=== PATIENT | female | born 1940 | race Caucasian/White ===

== ENCOUNTER 2017-10-19 18:27 | Emergency (ER) | payer MEDICARE, SELFPAY ==
[2017-10-19 18:28] VITALS: BP 173/80; PULSE 71; RESP 22; TEMP 37.1; O2SAT 97; BMI 30.9
[2017-10-19 22:27] VITALS: BP 162/90; RESP 18
--- NOTE | 2017-10-19 23:31 | NURSING ---
PT AMBULATED TO BATHROOM WITHOUT NOSE CLAMP ON THEN BACK TO BED. PT LEFT NARES DRIPPING A FEW DROPS OF BLOOD. AWARE. 2X2 GAUZE TAPPED TO NARES.
--- NOTE | 2017-10-20 00:10 | ED.DCSUM_ITS ---
- ER Visit Summary Date of Service: 10/20/17 Chief Complaint: Spontaneous epistaxis History of Present Illness: The patient is a 77 F dense with epistaxis bilaterally that started when she bent over. There is no history of trauma. She is on no anticoagulant or antiplatelet medication. She had a nosebleed several years ago and was seen by Dr. Gianluca De La Garza. She saturated cotton balls with Afrin and place them in both right and left naris per Dr. Begum's recommendation when she was seen a couple of years ago. She does have history of scleroderma. There is also history coronary disease, COPD, hypertension, hypercholesterolemia. He denies bruising easily. She denies any bleeding disorder. She states they do not have a humidifier. Physical Examination: Patient's vital signs remarkable blood elevated blood pressure 162/90. Blood is noted from the right and left naris. There is also blood posteriorly. Patient states she did tilt her head back initially. Pupils equal round reactive. Extra muscles are intact. TMs are normal. Uvula midline. Trachea midline. There is no stridor. Heart is regular without murmur, gallop or rub. Lungs are clear to auscultation. No bruising of the extremities or torso is noted. Test Results: None Emergency Department Course and Treatment: The Afrin saturated cotton balls were removed from the right and left naris. Cotton was saturated with Kel solution and instilled the right and left naris. It was determined that she was bleeding from the left. There is blood noted above the inferior turbinate. There is no abnormality over the right or left septum/Casodex plexus. An anterior posterior Rhino Rocket was placed. There is slight increase in bleeding. She was observed for an hour. She did receive a dose of amoxicillin department. She was given a prescription for amoxicillin and referred to ENT. Treatment Plan: Outpatient follow-up with ENT in 3-5 days and prescription for amoxicillin Disposition: Discharge in stable and improved condition Impression: Epistaxis left side This note was generated with [employer] dictation software. It may contain incorrect words, spelling, and punctuation that were not noted in review of the chart prior to signing ED Disposition - Plan for ED Patient: Disposition: Home or Assisted Living Chief Complaint: Nosebleed Instructions: Nosebleed Prescriptions: Amoxicillin [Amoxil] 500 mg PO Q8H #14 cap Referrals: Steffany Rose MD [Primary Care Provider] - Gianluca De La Garza MD [STAFF PHYSICIAN] - 3-5 Days Additional Instructions: Call Dr. De La Garza's office in the morning to be seen in 3-5 days.
[2017-10-20] MEDS: AMOXICILLIN 500 MG CAPSULE PO (00:18)
[2017-10-20 00:23] VITALS: BP 190/77; PULSE 61; RESP 17; O2SAT 96
--- NOTE | 2017-10-20 00:23 | ED.RN ---
DISCHARGE INSTRUCTIONS GIVEN TO AND REVIEWED WITH PATIENT, PATIENT DENIES QUESTIONS OR CONCERNS AND VOICES UNDERSTANDING OF DISCHARGE INSTRUCTIONS. PT TO PRIVATE VEHICLE VIA WHEELCHAIR.
== END 2017-10-20 00:24 | disposition home or self-care (01) ==
PROVIDERS: Emergency Provider Emergency Medicine; Family Provider Internal Medicine; PCP Internal Medicine
DX: R04.0 Epistaxis (principal); I25.10 Atherosclerotic heart disease of native coronary artery without angina pectoris; J44.9 Chronic obstructive pulmonary disease, unspecified; I10 Essential (primary) hypertension; E78.00 Pure hypercholesterolemia, unspecified; F32.9 Major depressive disorder, single episode, unspecified; Z79.82 Long term (current) use of aspirin; Z79.899 Other long term (current) drug therapy; Z87.891 Personal history of nicotine dependence
CPT/HCPCS: 30901; 30905; 99283

== ENCOUNTER 2017-10-20 02:38 | Emergency (ER) | payer MEDICARE, SELFPAY ==
[2017-10-20 02:39] VITALS: BP 166/90; PULSE 76; RESP 23; O2SAT 98; BMI 35.2
--- NOTE | 2017-10-20 02:42 | EKG12_ITS ---
Test Reason : SOB Blood Pressure : / mmHG Vent. Rate : 062 BPM Atrial Rate : 062 BPM P-R Int : 148 ms QRS Dur : 104 ms QT Int : 452 ms P-R-T Axes : 090 042 093 degrees QTc Int : 458 ms Sinus rhythm with marked sinus arrhythmia Otherwise normal ECG Confirmed by TARIQ PAYNE, LIZA ([id number]), medical editor SHILPI DAS ([id number]) on 10/21/2017 2:15:24 PM Referred By: DAVIDE Confirmed By:LIZA POTTER MD
--- NOTE | 2017-10-20 02:42 | RAD_ITS ---
STUDY: X-RAY CHEST REASON FOR EXAM: Female, 77 years old. Difficulty breathing and swallowing. TECHNIQUE: AP portable chest. COMPARISON: 10/10/2015. FINDINGS: The lungs are clear and expanded. There is no demonstrated pleural abnormality. Scattered subcentimeter nodules compatible with calcified granulomata unchanged. Normal size heart. Normal mediastinum and iliana. Normal visualized pulmonary arteries. Atherosclerotic calcification of the aortic arch. Normal visualized thoracic spine. Normal visualized ribs, clavicles, and shoulders. Sternal wires are present. There is no demonstrated abnormality of the visualized soft tissue structures of the upper abdomen. RAD/Chest 1 View (Portable) IMPRESSION: Stable chest, no acute cardiopulmonary disease. Old granulomatous disease. Electronically Signed: Anant Wise MD at 3:38 EST , Service support ,
[2017-10-20 02:58] VITALS: PULSE 78; RESP 20
[2017-10-20] MEDS: Albuterol 2.5 MG/3 ML VIAL.NEB. INHALATION (02:58)
[2017-10-20] MEDS: Ipratropium/Albuterol Sulfate 3 ML AMPUL.NEB INHALATION (02:58)
--- NOTE | 2017-10-20 03:12 | ED.VISSUMM ---
- ER Visit Summary Date of Service: 10/20/17 Chief Complaint: Shortness of breath, trouble swallowing History of Present Illness: The patient is a 77 F who presents to the emergency department with shortness of breath, facial pain, and difficulty swallowing. The patient was actually just discharged about 3 hours ago. At that time, she had a left-sided epistaxis. Anterior packing was placed. The patient was observed. Her bleeding is resolved. The patient was discharged home. She states since being home, she has had a worsening headache on the left side. She states she also feels like she cannot swallow and is having difficulty breathing. She has never had packing before. She states she feels like the bleeding has stopped, but she was just feeling more short of breath. The patient does have a history of scleroderma and underlying asthma from this. She also has history of coronary vascular disease and hypertension. Physical Examination: Vital signs reviewed General: Well-nourished, well-developed Head: Normocephalic, atraumatic Eyes: Pupils equal and reactive, extraocular muscles intact Nose: Packing placed in left naris. No active bleeding. Posterior pharynx is patent. No bleeding. No angioedema. No trismus or stridor. Neck, supple, no lymphadenopathy Heart: Regular rate and rhythm Respiratory: No distress, scant wheeze Abdomen: Soft, nontender, nondistended, no peritoneal signs Back: Nontender Extremities: Nontender, no edema, no cords Skin: Normal color no rash Neuro: Alert and oriented, no focal or lateralizing deficits Test Results: [] Emergency Department Course and Treatment: The patient had multiple complaints. I do feel the bulk of her symptoms from the packing. She has had bilateral eye watering, posterior sore throat, and facial pain. There is no evidence of current bleeding. The patient did have a scant wheeze. She was treated with nebulized aerosol and her wheezing resolved. She states that she was still having significant pain in her face and trouble swallowing. She was given a dose of Decadron. She was also given IV morphine. I did obtain labs which were unremarkable. She is not anemic. Her labs are baseline. Again, she has had no further bleeding. I do feel that this is all just symptoms from the packing placement along with likely irritation from her earlier bleeding. She was given morphine with some mild improvement. She continued to have a lot of pain and seem very anxious. She was then given Ativan. The patient was able to rest. She was observed for another hour and a half. She has had no further bleeding. I am going to give the patient 1 day of analgesic pain control given her significant facial pain. She already has antibiotics. I did psychotherapist counselor her on reasons to return. The patient will be discharged home. Treatment Plan: [] Disposition: Discharge Impression: 1. Dyspnea secondary to nasal packing This note was generated with [employer] dictation software. It may contain incorrect words, spelling, and punctuation that were not noted in review of the chart prior to signing ED Disposition - Plan for ED Patient: Chief Complaint: Asthma Instructions: ED Reactive Airway Disease Referrals: Steffany Rose MD [Primary Care Provider] -
[2017-10-20 03:13] LABS: Absolute Lymphocyte Count 1.54 X10^3/ul (0.83-4.51); Basophil# 0.04 X10^3/uL; Basophil% 0.4 % (0-1); Eosinophil# 0.06 X10^3/uL; Eosinophils% 0.6 % (0-5); Hematocrit 37.3 % (37-47); Hemoglobin 12.4 g/dl (12.0-15.0); Lymphocyte # 1.54 X10^3/ul (4.0); Lymphocyte % 16.5 % (19-41); Mean Corp Hgb Conc 33.2 g/gl (32-36); Mean Corpuscular Hgb 35.5 pg (27.0-32.0); Mean Corpuscular Volume 106.9 fL (81-99); Mean Platelet Vol. 10.7 fl (6.2-12.0); Monocyte# 0.68 X10^3/uL; Monocyte% 7.3 % (0-10); Neutrophil # 6.98 X10^3/uL (2.7-7.7); Neutrophil % 75.1 % (47-70); POSITIVE COUNT NO; POSITIVE DIFFERENTIAL NO; POSITIVE MORPHOLOGY NO; Platelet Count 215 K/mm3 (150-450); RBC Distribution Width CV 13.6 % (11.6-14.6); RBC Distribution Width SD 52.5 fl (35.1-43.9); Red Blood Count 3.49 M/mm3 (4.2-5.4); White Blood Count 9.3 K/mm3 (4.4-11.0)
[2017-10-20 03:28] LABS: Anion Gap 9 (5-15); BUN 28 mg/dL (7-18); BUN/Creat Ratio 24.1 RATIO (10-20); Calcium,Total 9.4 mg/dL (8.5-10.1); Chloride 103 mmol/L (98-107); Creatinine, Serum 1.16 mg/dL (0.55-1.02); EST Glomerular Filtration Rate 48 mL/min (>60); Est Glom Filt Rate - Afr Amer 58 mL/min (>60); Estimated Creatinine Clearance 35.63 ml/min; Glucose 113 mg/dL (74-106); Potassium 4.8 mmol/L (3.5-5.1); Sodium Level 137 mmol/L (136-145)
[2017-10-20] MEDS: LORazepam 2 MG/ML Syringe 1 MG IV (04:22)
[2017-10-20] MEDS: HYDROcodone Bitartrate/Apap 5/325 Tablet PO (05:44)
[2017-10-20 05:47] VITALS: BP 134/68; PULSE 83; PULSE 90; RESP 20; RESP 21; O2SAT 96
== END 2017-10-20 06:02 | disposition home or self-care (01) ==
LOC: ED 02:53
PROVIDERS: Emergency Provider Emergency Medicine; Family Provider Internal Medicine; PCP Internal Medicine
DX: R06.00 Dyspnea, unspecified (principal); J02.9 Acute pharyngitis, unspecified; J45.909 Unspecified asthma, uncomplicated; I25.10 Atherosclerotic heart disease of native coronary artery without angina pectoris; I10 Essential (primary) hypertension
CPT/HCPCS: 71045; 80048; 85025; 93005; 94640; 96374; 96375; 99285; A4216

== ENCOUNTER → 2021-01-08 16:53 | Outpatient (CLI) | payer MEDICARE, SELFPAY ==
[2019-01-12 14:51] VITALS: BMI 33.3
--- NOTE | 2021-01-08 17:00 | PET_ITS ---
EXAMINATION: FDG PET/CT INDICATIONS: A 80-year-old female with history of pulmonary nodularity. COMPARISON EXAMINATION: CT of the chest report dated 12/18/20 INDEX LESION SIZE SUV INTERPRETATION Left mid anterolateral lung-left upper lobe 20.3-mm (frame 160) 0.5 Quantitative criteria for viable neoplasm are not fulfilled, sequential radiologic investigation recommended NON-INDEX LESION SIZE SUV INTERPRETATION Proximal ascending colon 3.8 (max) Most consistent with physiologic tracer uptake, correlation with CT of the abdomen and pelvis with oral and intravenous contrast may be of benefit TECHNIQUE: Following the intravenous administration of 15.2 mCi of F-18 deoxyglucose via the right brachium, multiplanar image acquisitions of the neck, chest, abdomen and pelvis to level of mid thigh, obtained at one hour post radiopharmaceutical administration contemporaneously interpreted with the current CT of the neck, chest, abdomen and pelvis to level of mid thigh, dated 01/08/[address] of the chest report dated 12/18/20 reveal: SERUM GLUCOSE LEVEL: 88 mg/dl. HEIGHT: 63 inches. WEIGHT: 193 lbs. FINDINGS: 1. Subtle increased FDG concentration is observed in the left mid anterolateral lung-left upper lobe generating a calculated maximal standard uptake value of 0.5 (standardized-corrected). The corresponding density on review of CT of the chest dated 01/08/21 is 20.3-mm (AP). 2. Normal physiologic distribution of the radiopharmaceutical is apparent in the hepatic (3.6) and splenic parenchyma, both renal units, bladder and visualized intestinal tract. Diffuse radiopharmaceutical concentration is noted in all four quadrants of the abdomen and pelvis, most accentuated at the level of the distal ascending colon-hepatic flexure generating a calculated maximal standard uptake value of 3.8. Pertinent CT findings are as follows: CHEST: There is atherosclerotic calcification defined in the thoracic aorta without evidence of dilatation-aneurysm formation. Coronary arterial calcification is observed. There is evidence of median sternotomy. Right and left axillary soft tissue densities with fatty hilus are ametabolic. Calcified mediastinal and thoracic perihilar soft tissue demonstrates no evidence of increased tracer uptake. Additional parenchymal densities defined in the right and left hemithorax are non-glucose avid. Interstitial changes manifest in the bilateral post basilar hemithorax are ametabolic. ABDOMEN AND PELVIS: Calcified granuloma formation is noted within the splenic parenchyma. The gallbladder is not clearly identified. There is atherosclerotic calcification defined in the abdominal aorta without evidence of dilatation-aneurysm formation. Abdominal-pelvic arterial calcification is observed. Cortical cyst formation is evident in the right kidney. Colonic diverticulosis is encountered without evidence of diverticulitis. Right and left inguinal soft tissue densities are non-glucose avid. Calcification is manifest within the lower pelvis-uterus without evidence of facilitated fluorine labeled glucose uptake. SKELETAL: Degenerative changes are noted in the cervical, thoracic and lumbar spine without evidence of increased radiopharmaceutical concentration. Sclerotic change manifest in the axial skeletal structures reveals no evidence of increased tracer uptake. PET/PET/CT Tumor Base -Thigh Init IMPRESSION: 1. NEGATIVE EXAMINATION. There is no definitive quantitative scintigraphic evidence of viable neoplasm. 2. Barely perceptible increased tracer uptake noted in the left mid anterolateral lung-left upper lobe does not fulfill quantitative criteria for malignant transformation. (Ann et al, Annals of Internal Medicine, 138:724, 2003). 3. Metabolic and/or anatomic stability may be ensured in the left mid anterolateral lung-left upper lobe abnormality with repeat FDG PET study and/or CT of the thorax in 3-6 months if clinically indicated. (Xiu, Journal of Nuclear Medicine 45:88, P2004 Clement, Seminars in Thoracic and Cardiovascular Surgery 14:292, 2002). 4. The increase in tracer uptake noted in the proximal ascending colon is most consistent with physiologic radiopharmaceutical distribution. If intraluminal soft tissue mass formation is a diagnostic consideration, correlation with CT of the abdomen and pelvis with oral and intravenous contrast is recommended. (Domusa et al, Journal of Nuclear Medicine, 30:S276, 2003). 5. Sclerotic changes defined throughout the axial skeletal structures without evidence of facilitated labeled GLUCOSE uptake may be further investigated with conventional radionuclide bone scintigraphy if clinically indicated. Electronic Signature Yair Aguilera D.O. Accurate Quantification of SUVs for this report are calculated using the exclusive [employer]? Technology.??Exclusive [place]. Patent [employer]? Technology (U.S. Patent No. [id number] [id number]). Electronically Signed: Yair Aguilera DO at 10:30 EDT Tel , Service support ,
== END ==
PROVIDERS: PCP Internal Medicine
DX: R91.1 Solitary pulmonary nodule (principal)
CPT/HCPCS: 78815; A9552

== ENCOUNTER → 2021-07-11 11:40 | Outpatient (CLI) | payer MEDICARE, SELFPAY ==
[2021-07-11 12:50] LABS: Thyroid Stim Hormone (TSH) 2.08 uIU/mL (0.358-3.74)
== END ==
PROVIDERS: PCP Internal Medicine; Visit Provider Internal Medicine Cardiovascular Disease
DX: R53.83 Other fatigue (principal); F41.9 Anxiety disorder, unspecified; I25.119 Atherosclerotic heart disease of native coronary artery with unspecified angina pectoris; I10 Essential (primary) hypertension; E78.00 Pure hypercholesterolemia, unspecified; Z95.1 Presence of aortocoronary bypass graft
CPT/HCPCS: 36415; 84443

== ENCOUNTER → 2021-07-24 06:45 | Outpatient (CLI) | payer MEDICARE, SELFPAY ==
--- NOTE | 2021-07-24 14:52 | STRESSREP_ITS ---
Stress Test Report Date: 07-24-2021 Procedure: Pharmacologic stress nuclear imaging study Indications: Chest pain; CAD; CABG Consent: Per the patient Procedure: The patient underwent pharmacologic (Regadenoson 0.4mg ) evaluation with a peak heart rate of 86 beats per minute (61%predicted maximal heart rate) and a peak blood pressure of 124/72 mmHg. The baseline ECG demonstrated sinus rhythm; nonspecific ST/T wave abnormality. The peak pharmacologic ECG demonstrated no obvious ECG changes. There were no cardiac dysrhythmias pretest, during pharmacologic infusion, or recovery. There was no complaint of chest discomfort during pharmacologic infusion or recovery. The examination was discontinued secondary to completion of protocol. Impression: 1. Pharmacologic (Regadenoson) evaluation 2. Peak pharmacologic ECG with no obvious ECG changes. 3. There were no cardiac dysrhythmias pretest, during pharmacologic infusion, or recovery. 4. Nuclear images pending Myocardial perfusion imaging study: Technique: The patient was injected with 14.1 millicuries of technetium 99m Cardiolite and subsequently rest SPECT Cardiolite nuclear imaging was obtained in the horizontal long, vertical long, and short axis views. The patient underwent pharmacologic (Regadenoson) evaluation with a peak heart rate of 86 beats per minute (61% percent predicted maximal heart rate) and a peak blood pressure of 124/72 mmHg. The patient was injected with 44.3 millicuries of technetium 99m Cardiolite and subsequently stress SPECT Cardiolite nuclear imaging was obtained in the horizontal long, vertical long, and short axis views. A gated Cardiolite study at peak stress was obtained. Interpretation: Rest and stress SPECT Cardiolite nuclear imaging status post realignment, normalization, and attenuation correction demonstrate the appearance of relative uniform tracer uptake at rest and status post stress there is appearance of diminished myocardial perfusion/tracer uptake in portions of the basal to mid inferior segments. There is diminished end systolic thickening and brightening in the aforementioned areas. The gated Cardiolite study demonstrates diminished myocardial thickening and inward wall motion in the aforementioned areas. The reported LVEF is 53%. Impression: 1. Rest and stress SPECT Cardiolite nuclear imaging demonstrate myocardial perfusion changes concerning for an area of stress-induced myocardial ischemia in portions of the basal to mid inferior segments, however, an element of shifting soft tissue attenuation/artifact cannot be completely excluded. 2. The gated Cardiolite study reports an LVEF of 53%. This note was generated with [employer] software. It may contain incorrect words, spelling, and punctuation that were not noted in checking the note before signing.
== END ==
PROVIDERS: PCP Internal Medicine; Visit Provider Internal Medicine Cardiovascular Disease
DX: I25.119 Atherosclerotic heart disease of native coronary artery with unspecified angina pectoris (principal); I10 Essential (primary) hypertension; E78.00 Pure hypercholesterolemia, unspecified; R53.83 Other fatigue; Z95.1 Presence of aortocoronary bypass graft
CPT/HCPCS: 78452; 93017; A9500; A4216; J2785

== ENCOUNTER → 2021-11-05 07:27 | Day surgery (SDC) | payer MEDICARE, SELFPAY ==
--- NOTE | 2021-10-25 12:45 | RAD_ITS ---
STUDY: X-RAY CHEST REASON FOR EXAM: Female, 81 years old. Preoperative eval TECHNIQUE: Frontal and lateral views of the chest. COMPARISON: None. FINDINGS: The lungs are clear and expanded. There is no demonstrated pleural abnormality. Sternal cerclage wires and vascular clips are present from a prior sternotomy and coronary artery bypass graft procedure (CABG). Normal mediastinum and iliana. Normal visualized pulmonary arteries. Normal visualized aortic arch and descending thoracic aorta. Normal visualized thoracic spine. There is degenerative osteoarthritis of the bilateral shoulders. There is no demonstrated abnormality of the visualized soft tissue structures of the upper abdomen. RAD/Chest PA and Lateral IMPRESSION: Degenerative changes, as described above. No demonstrated acute cardiopulmonary process. Electronically Signed: Kurtis Cartwright MD at 7:28 EST ,
[2021-10-25 13:32] LABS: Absolute Lymphocyte Count 1.52 X10^3/uL (0.83-4.51); Absolute Neutrophil Count 3.5 X10^3/uL (2.0-7.7); Basophil# 0.05 X10^3/uL; Basophil% 0.8 % (0-1); Eosinophil# 0.17 X10^3/uL; Eosinophils% 2.7 % (0-5); Hematocrit 38.2 % (37-47); Hemoglobin 12.3 g/dL (12.0-15.0); Lymphocyte # 1.52 X10^3/ul (0.83-4.51); Lymphocyte % 24.2 % (19-41); Mean Corp Hgb Conc 32.2 g/dL (32-36); Mean Corpuscular Hgb 37.3 pg (27.0-32.0); Mean Corpuscular Volume 115.8 fL (81-99); Mean Platelet Vol. 11.3 fl (6.2-12.0); Monocyte# 1.05 X10^3/uL; Monocyte% 16.7 % (0-10); NRBC Flagged by Analyzer 0 % (0-5); Neutrophil # 3.47 X10^3/uL (2.7-7.7); Neutrophil % 55.4 % (47-70); Platelet Count 175 K/mm3 (150-450); RBC Distribution Width CV 15.1 % (11.6-14.6); RBC Distribution Width SD 64.5 fl (35.1-43.9); White Blood Count 6.3 K/mm3 (4.4-11.0)
[2021-10-25 13:38] LABS: Prothrombin Time (Protime)PT. 12.9 SECONDS (11.7-14.9)
[2021-10-25 13:39] LABS: Partial Thromboplast Time 28.3 Seconds (24.1-36.2)
[2021-10-25 13:52] LABS: Anion Gap 4 (5-15); BUN 24 mg/dL (7-18); Calcium,Total 10.2 mg/dL (8.5-10.1); Chloride 105 mmol/L (98-107); Creatinine, Serum 1.26 mg/dL (0.55-1.02); EST Glomerular Filtration Rate 43 mL/min (>60); Est Glom Filt Rate - Afr Amer 53 mL/min (>60); Glucose 98 mg/dL (74-106); Potassium 3.9 mmol/L (3.5-5.1); Sodium Level 140 mmol/L (136-145)
[2021-11-04 09:34] VITALS: BMI 33.7
--- NOTE | 2021-11-04 19:25 | PCM.HP.BLA ---
History and Physical Date of Admission: 11/05/21 [facility] [address] [place] [address] [phone] OFFICE VISITDate of Service: 10/08/21 MR#:[id number]:[id number]: TALIA BURT JRep #:[id number] Provider: ALYSA Rodriguez RoofAge/Sex: 81/F Location:Oratus:Signed HPI HPI History of Present Illness Surgical H&P: Yes Details: This is an 81-year-old white female who presents today for outpatient cardiovascular consultation for concern of a history of underlying CAD, CABG, superimposed upon hyperlipidemia, hypertension, peripheral vascular disease, history of previous thromboembolic event/pulmonary emboli, TIA, chronic kidney disease, and lung nodules, who follows with [facility] primary care and has been previously followed by [facility] cardiology. It appears her last [facility] cardiology visit was on 04-02-2017. At that time she was being followed for her aforementioned cardiovascular conditions. It appears the recommendation was that she was continuing medical therapy and follow-up. Patient underwent stress test on 07/24/2021 that is considered to be abnormal. On account of memory issues, it was recommend to begin metoprolol and isosorbide therapy and follow response before proceeding with heart catheterization. She was started on isosorbide. There is an unknown allergy to metoprolol and thus was not started on beta-willie therapy. Today, she continues to acknowledge dull, weekly chest discomfort. This is most noted with activity and occasionally occurs at rest. This is located on left side of her chest and last for minutes. She denies palpitations. She denies bilateral lower extremity edema. She acknowledges shortness of breath with activity. She denies shortness of breath at rest, orthopnea, cough, or PND. She acknowledges an increase in fatigue since last office visit. She denies lightheadedness, dizziness, syncope, or near syncope. She acknowledges that lower extremities are painful and cold at times while sitting. Intake Vital Signs 10/08/21 11:45 Height 5 ft 4 in Weight: 197 lb BMI 33.7 BP 132/79 H Blood Pressure Location Lt brachial Position Sitting Respiration 22 H Pulse 72 Pulse Source Monitor Intake Visit Reasons: 3 m [employer]ist[employer] Required: No Accompanied by: Granddaughter Is patient in pain?: No Allergies metoprolol tartrate [From Lopressor] Allergy (Verified 10/08/21 11:51) Unknown shellfish derived Allergy (Verified 10/08/21 11:51) Anaphylaxis Sulfa (Sulfonamide Antibiotics) Allergy (Verified 10/08/21 11:51) Rash Medications albuterol sulfate 1 - 2 puff INHALATION Q4H PRN PRN 10/10/15 [History Confirmed 10/08/21] doxepin 50 mg PO QHS 10/10/15 [History Confirmed 10/08/21] folic acid 2 mg PO DAILY 10/10/15 [History Confirmed 10/08/21] leucovorin calcium 5 mg PO QWEEK 10/10/15 [History Confirmed 10/08/21] simvastatin 20 mg PO QHS 10/10/15 [History Confirmed 10/08/21] allopurinol 100 mg tablet 200 mg PO DAILY tab 01/12/19 [History Confirmed 10/08/21] budesonide-formoterol HFA 160 mcg-4.5 mcg/actuation aerosol inhaler 2 puff INHALATION BID 01/12/19 [History Confirmed 10/08/21] latanoprost 0.005 % eye drops 1 drp OPHTHALMIC QPM 01/12/19 [History Confirmed 10/08/21] nitroglycerin 0.4 mg sublingual tablet 0.4 mg SUBLINGUAL Q5-15M PRN 01/12/19 [History Confirmed 10/08/21] acetaminophen 500 mg tablet 500 mg PO Q8H PRN tab 06/26/21 [History Confirmed 10/08/21] cholecalciferol (vitamin D3) 25 mcg (1,000 unit) tablet 25 mcg PO DAILY 06/26/21 [History Confirmed 10/08/21] clobetasol 0.05 % topical cream 1 applic TOPICAL BID 06/26/21 [History Confirmed 10/08/21] hydrochlorothiazide 12.5 mg tablet 12.5 mg PO DAILY 06/26/21 [History Confirmed 10/08/21] methotrexate sodium 2.5 mg tablet 12.5 mg PO Q7D 06/26/21 [History Confirmed 10/08/21] brimonidine 0.1 % eye drops 2 drp OPHTHALMIC (EYE) DAILY ml 07/11/21 [History Confirmed 10/08/21] lisinopril 20 mg tablet 20 mg PO BID 07/11/21 [History Confirmed 10/08/21] aspirin 81 mg tablet,delayed release 81 mg PO DAILY 10/08/21 [History Confirmed 10/08/21] calcipotriene 0.005 % topical cream 1 applic TOPICAL DAILY PRN 10/08/21 [History Confirmed 10/08/21] docusate sodium 100 mg capsule 100 mg PO BID PRN 10/08/21 [History Confirmed 10/08/21] gabapentin 300 mg capsule 900 mg PO QHS cap 10/08/21 [History Confirmed 10/08/21] melatonin 3 mg capsule 6 mg PO HS PRN cap 10/08/21 [History Confirmed 10/08/21] montelukast 10 mg tablet 10 mg PO QHS tab 10/08/21 [History Confirmed 10/08/21] multivitamin 1 tab PO DAILY 10/08/21 [History Confirmed 10/08/21] sertraline 50 mg tablet 50 mg PO DAILY tab 10/08/21 [History Confirmed 10/08/21] tramadol 50 mg tablet 50 mg PO TID PRN tab 10/08/21 [History Confirmed 10/08/21] isosorbide mononitrate 60 mg tablet,extended release 24 hr 60 mg PO DAILY #30 tab 10/10/21 [Rx Confirmed 10/10/21] Ejection fraction %: 50 to 54 PFSH Medical History Anemia Angina pectoris Anxiety Asthma Atherosclerotic heart disease of [place] coronary artery without angina pectoris Chronic airway obstruction CKD (chronic kidney disease) stage 3, GFR 30-59 ml/min Constipation Depression Diarrhea Diverticulosis Dysplasia of cervix, unspecified Dysthymic disorder Essential hypertension Fatigue Glaucoma Gout History of dermatomyositis Hx TIA/stroke w/o resid Lichen sclerosus Lung nodule Myalgia Osteoporosis Other pulmonary embolism and infarction Pure hypercholesterolemia PVD (peripheral vascular disease) Rectocele Scleroderma SOB (shortness of breath) Surgical History History of cholecystectomy History of coronary artery bypass surgery (~08/10/00) History of intraocular lens implant History of left knee replacement History of total right knee replacement Hx of colonoscopy Hx of heart bypass surgery Family History Father Heart disease Myocardial infarction Social History Smoking Status: Never smoker second hand exposure: No alcohol intake: never substance use type: does not use caffeine: Yes what type of physical activity do you participate in: none frequency: does not exercise ROS Const Const: Positive for fatigue (Increased since last visit) and weakness; Negative for headache(s), frequent falls, difficulty sleeping or excessive sweating Eyes Eyes: Negative for loss of peripheral vision, transient loss of vision, blurry vision, double vision or tunnel vision ENT ENT: Positive for balance problems; Negative for headache(s), dizziness or Nosebleed/epistaxis Cardio Chest Pain: Yes Frequency: weekly (Couple days per week) Character: dull (ache) Onset: other (mostly with activity. Occasionally at rest) Location: left chest (into left arm at times) Duration: minutes Palpitations: No Edema: None Muscle aches with walking: None Resp Respiratory: Positive for SOB with activity; Negative for SOB at rest, SOB orthopnea\SOB lying down, Cough or paroxysmal nocturnal dyspnea GI GI: Negative nausea, vomiting, heartburn or black,tarry stools : Negative for hematuria Musc Musc: Positive for muscle aches/ myalgia (Lower legs cold and painful), joint pain and balance problems; Negative for muscle weakness Skin Skin: Negative non-healing lesions, rash or unusual bruising Neuro Neuro: Positive for weakness; Negative for dizziness, lightheadedness, near syncope, syncope, frequent falls, headache(s), blurry vision, double vision or lack of coordination Jose Hematologic/Lymphatic: Negative for easy bleeding or easy bruising Endo Endo: Positive for fatigue (Increased since last visit); Negative for excessive sweating or increased thirst/drinking Psych Psych: Negative for anxiety or depression Allergy Allergy/Immunology: Negative for hives and Negative for rash Cardiology Exam Const Appearance: cooperative, healthy appearing, comfortable and no acute distress Nutritional Appearance: well nourished and obese Orientation: alert, awake and oriented x3 Head Head: normal to inspection Ears: hearing grossly normal bilaterally Nose: external nose normal Face and Sinus: face symmetric Mouth: oral mucosae normal Eyes General: appearance normal, both eyes and all related structures Eyelids: eyelids normal EOM: EOM intact bilaterally Neck Neck: normal visual inspection and no JVD Carotids: normal carotid upstroke Chest Chest inspection: normal inspection of the chest, symmetric chest movement and normal respiratory effort; Negative cough Auscultation: Bilateral: Clear to Auscultation Cardio Rate: regular rate Rhythm: irregular rhythm Heart sounds: S1 normal and S2 normal; Negative rub, gallop or murmur GI GI: normal to inspection and obese Neuro General: patient alert, patient awake, patient oriented x3 and CN's II-XI intact bilaterally Skin Skin: no rashes or lesions noted Extremities Pulses: Normal: Right Posterior Tibial Pulse, Left Posterior Tibial Pulse, Right Radial Pulse and Left Radial Pulse Lower Extremity Edema: None: Bilateral Psych Psychological: normal affect Supplemental Info Supplemental Information Transthoracic echocardiogram performed on 02-14-2021. This was performed at [facility]. Per the report it was a technically diminished study thought secondary to the patient's underlying body habitus. The left ventricle was thought to have an LVEF of 50%. The left atrium was mildly enlarged. There were no significant valvular abnormalities reported. A contrast study was not performed. [facility] CABG on 08-10-2000. At that time she received a TINOCO to the LAD and a right radial artery graft to the posterior descending artery. Stress Test Report Date: 07-24-2021 Procedure: Pharmacologic stress nuclear imaging study Indications: Chest pain; CAD; CABG Consent: Per the patient Procedure: The patient underwent pharmacologic (Regadenoson 0.4mg ) evaluation with a peak heart rate of 86 beats per minute (61%predicted maximal heart rate) and a peak blood pressure of 124/72 mmHg. The baseline ECG demonstrated sinus rhythm; nonspecific ST/T wave abnormality. The peak pharmacologic ECG demonstrated no obvious ECG changes. There were no cardiac dysrhythmias pretest, during pharmacologic infusion, or recovery. There was no complaint of chest discomfort during pharmacologic infusion or recovery. The examination was discontinued secondary to completion of protocol. Impression: 1. Pharmacologic (Regadenoson) evaluation 2. Peak pharmacologic ECG with no obvious ECG changes. 3. There were no cardiac dysrhythmias pretest, during pharmacologic infusion, or recovery. 4. Nuclear images pending Myocardial perfusion imaging study: Technique: The patient was injected with 14.1 millicuries of technetium 99m Cardiolite and subsequently rest SPECT Cardiolite nuclear imaging was obtained in the horizontal long, vertical long, and short axis views. The patient underwent pharmacologic (Regadenoson) evaluation with a peak heart rate of 86 beats per minute (61% percent predicted maximal heart rate) and a peak blood pressure of 124/72 mmHg. The patient was injected with 44.3 millicuries of technetium 99m Cardiolite and subsequently stress SPECT Cardiolite nuclear imaging was obtained in the horizontal long, vertical long, and short axis views. A gated Cardiolite study at peak stress was obtained. Interpretation: Rest and stress SPECT Cardiolite nuclear imaging status post realignment, normalization, and attenuation correction demonstrate the appearance of relative uniform tracer uptake at rest and status post stress there is appearance of diminished myocardial perfusion/tracer uptake in portions of the basal to mid inferior segments. There is diminished end systolic thickening and brightening in the aforementioned areas. The gated Cardiolite study demonstrates diminished myocardial thickening and inward wall motion in the aforementioned areas. The reported LVEF is 53%. Impression: 1. Rest and stress SPECT Cardiolite nuclear imaging demonstrate myocardial perfusion changes concerning for an area of stress-induced myocardial ischemia in portions of the basal to mid inferior segments, however, an element of shifting soft tissue attenuation/artifact cannot be completely excluded. 2. The gated Cardiolite study reports an LVEF of 53%. [facility] pharmacologic stress nuclear imaging study on 12-14-2014. Per the report at that time it was considered a normal Lexiscan stress ECG and clinically negative for ischemia with a perfusion study being reported as a normal study with no evidence of infarct or ischemia. Carotid artery duplex study performed on 11-12-2016 at [facility] with what was reported as 20 to 39% stenosis bilaterally. CT scan of the chest on 04-09-2021. Per the report she had stable pulmonary nodularity with findings of remote granulomatous disease, new area of scarring or fissural lymph node adjacent to the left major fissure, and vascular disease. Labs: No Data to Display Diagnostics: Electrocardiogram Stress Test NM Stress Test Chest X-Ray Pulmonary: No Data to Display Assessment and Plan Assessment and Plan (1) Atherosclerotic heart disease of [place] coronary artery without angina pectoris: Status: Acute Orders: Orders: 12 Lead EKG performed by [facility] 10/08/21 Left Heart Cath w/Grafts 10/10/21 Basic Metabolic Profile (BMP) 10/10/21 Plan - Blue Meza NP, MEDICAID SERVICE COORDINATOR-C: Patient continues to acknowledge chest discomfort. She does not feel that isosorbide has drastically improved such symptoms. Her EKG today shows sinus rhythm with rate variation at a rate of 94 bpm, NM interval 180, QTc 381, and QRS 104. There are no acute ST or T wave changes noted. Options were discussed with her in respect to monitoring versus continued medication therapy versus heart catheterization. She wishes to pursue heart catheterization. Patient was asked to increase her isosorbide to 60 mg p.o. daily. She will undergo a heart catheterization to assess further. (2) History of coronary artery bypass surgery: Status: Acute Comment: CABG x2- TINOCO-LAD, Rt Radial graft-PDA 08/10/00 Orders: Orders: Left Heart Cath w/Grafts 10/10/21 Basic Metabolic Profile (BMP) 10/10/21 Plan Jose Manuel Meza MEDICAID SERVICE COORDINATOR, MEDICAID SERVICE COORDINATOR-C: She will continue current medical therapy with aspirin, isosorbide, lisinopril, and simvastatin. (3) Pure hypercholesterolemia: Status: Chronic Orders: Orders: Left Heart Cath w/Grafts 10/10/21 Basic Metabolic Profile (BMP) 10/10/21 Plan Jose Manuel Meza MEDICAID SERVICE COORDINATOR, MEDICAID SERVICE COORDINATOR-C: She will continue with simvastatin therapy. (4) Essential hypertension: Status: Chronic Orders: Orders: Left Heart Cath w/Grafts 10/10/21 Basic Metabolic Profile (BMP) 10/10/21 Tiago Meza MEDICAID SERVICE COORDINATOR, MEDICAID SERVICE COORDINATOR-C: Patient's blood pressure is well-controlled. We will continue to monitor. We will not make any medication regimen changes. (5) Angina pectoris: Status: Acute Orders: Orders: 12 Lead EKG performed by [facility] 10/08/21 Left Heart Cath w/Grafts 10/10/21 Basic Metabolic Profile (BMP) 10/10/21 Chest PA and Lateral 10/10/21 Tiago Meza MEDICAID SERVICE COORDINATOR, MEDICAID SERVICE COORDINATOR-C: On account of such symptoms, patient underwent stress test on 07/24/2021 is considered to be abnormal. Isosorbide was added to her regimen. This will be increased today. She does not feel that the isosorbide has significantly improved her symptoms. It was discussed with her in regards to trialing Ranexa therapy. After discussion, she wishes to proceed with heart catheterization. (6) Fatigue: Status: Acute Orders: Orders: Left Heart Cath w/Grafts 10/10/21 Basic Metabolic Profile (BMP) 10/10/21 Plan - Blue Meza MEDICAID SERVICE COORDINATOR, MEDICAID SERVICE COORDINATOR-C: At this time, we will continue to monitor. Plan Details Other Medications: Changed: From: isosorbide mononitrate ER 30 mg PO DAILY 30 tabs 12RF To: isosorbide mononitrate ER 60 mg PO DAILY 30 tabs 12RF Other Orders: Orders: Left Heart Cath w/Grafts 10/10/21 R94.39 Basic Metabolic Profile (BMP) 10/10/21 R94.39, Z01.810 Partial Thromboplast Time 10/10/21 R06.02 Prothrombin Time w/INR 10/10/21 Z86.718 CBC W/Diff, Automated 10/10/21 J44.9 Chest PA and Lateral 10/10/21 R94.39, Z01.810 Additional Comments: Thank you for allowing me to participate in the care of your patient. Please don't hesitate to call if any issues arise. This note was generated using a voice recognition system and there may be incorrect words, spelling or punctuation that were not noted when reviewing the office note prior to saving. Follow Up: PCP Lipids 12-14 Months (PFM) 2 Months (MEDICAID SERVICE COORDINATOR/PA) COVID (Procedure Consent) Procedure Criteria Procedure Criteria: Yes Elective The surgeon/proceduralist and patient have discussed in detail the risk of exposure to and/or potential harm posed by the COVID-19 virus with having a surgery/procedure at this time versus the risk of delaying the surgery/procedure. It is not possible to know either the risk of delaying the surgery or procedure or chance of getting an infection with perfect accuracy, but a joint decision was made between the patient and the surgeon/proceduralist to proceed at this time with the scheduled surgery/procedure as indicated on the consent form. Coding Level of Care Code Off vis,est,level 4 Diagnoses Atherosclerotic heart disease of [place] coronary artery without angina pectoris I25.10 History of coronary artery bypass surgery Z95.1 Pure hypercholesterolemia E78.00 Essential hypertension I10 Angina pectoris I20.9 Fatigue R53.83 Coding Level of Care Code Off vis,est,level 4 Diagnoses Atherosclerotic heart disease of [place] coronary artery without angina pectoris I25.10 History of coronary artery bypass surgery Z95.1 Pure hypercholesterolemia E78.00 Essential hypertension I10 Angina pectoris I20.9 Fatigue R53.83 10/11/21 0834<Electronically signed by Blue Meza MEDICAID SERVICE COORDINATOR MEDICAID SERVICE COORDINATOR-C>Date Blue Meza MEDICAID SERVICE COORDINATOR MEDICAID SERVICE COORDINATOR-C Cosigner Signature:Date (if applicable) CC: Dr. Steffany Rose MD ~ Assessment & Plan Addt'l Comments I have re-examined the patient. There are no clinical changes since date of exam
--- NOTE | 2021-11-05 10:18 | CL.D_ITS ---
Patient Name: TALIA BURT Study Date: 11/05/2021 Performing: José Dailey MD Ht: 64.17 inches 163 cm : 1940 Wt: 196.21 lbs 89 kg Age: 81 Gender: female BSA: 1.94 PROCEDURE(S) PERFORMED DC03-([id number])LHC/COR/LV/CABG CLINICAL PROFILE AND INDICATIONS Indications: Worsening Angina, Suspected CAD Heart Failure: None Stress/Imaging Date: 07/28/2021 Angina Classification Anginal Classification w/in 2 Weeks: CCS III CAD Presentations: Other: worsening angina CONCLUSIONS Elevated Left Ventricular End Diastolic Pressure Segmented LV systolic dysfunction- Mild LVEF: by LV gram 50 % Jackson Multivessel CAD TINOCO to LAD: patent Radial artery graft to RPDA: small, diffusely disease, relatively non functional Left to Right collateral flow RECOMMENDATIONS Risk factor modification Medical therapy DESCRIPTION OF PROCEDURE The patient arrived to the procedure lab. The risks and benefits of the procedure as well as a full d escription of our services here and current unavailability of surgical backup were fully explained to the patient and/or their significant other prior to the catheterization. The Timeout was completed, verifying the correct patient and procedure. The patient's procedural site was prepped and draped in the usual fashion. Local anesthetic was given subcutaneously to right groin region with Lidocaine 2%. Using a modified Seldinger technique, arterial access was obtained via the right femoral artery, a 4 Fr sheath was inserted Left Coronary Artery selective angiography was performed in multiple views us ing a 4 Fr. JL5 catheter. Right Coronary Artery selective angiography was then performed in multiple views using a 4 Fr. 3DRC catheter. Right Coronary Artery selective angiography was then performed in multiple views using a 4 Fr. 3DRC catheter. Left internal mammary artery graft to the LAD selective angiography was performed in multiple views using a 4 Fr. JR4 catheter. Right radial graft to the RPDA selective angiography was performed in multiple views using a 4 Fr. RCB catheter. Left Ve ntriculography was performed in JACOBO projection using a 4 Fr. Pigtail catheter. LV to AO pullback pres sures were then recorded.The arterial sheath was left in to be pulled in the holding area. The arteri al sheath was pulled and manual compression applied until hemostasis is achieved. CORONARY ANGIOGRAPHY DOMINANCE: Right Dominant LEFT HEART ASSESSMENT Left Ventricular Ejection Fraction: by LV Gram 50 % Inferior Basal Akinesis. Inferior Mid Akinesis Elevated Left Ventricular End Diastolic Pressure LVEDP: 21 mmHg LEFT MAIN: Mild luminal irregularities LEFT ANTERIOR DESCENDING ARTERY: PROX LAD: irregular: hazy: 25 - 50 % Stenosis MID LAD: to distal LAD: fills predominantly from antegraded flow with no angiograhically significant disease distal to the graft anastomosis DISTAL LAD: fills predominantly from antegraded flow with no angiograhically significant disease dist al to the graft anastomosis CIRCUMFLEX ARTERY: OM 1: Proximal - Mild luminal irregularities RIGHT CORONARY ARTERY: PROX RCA: is occluded GRAFTS: TINOCO graft to the Mid LAD is patent (small graft providing competitive flow to the LAD, however, the mid to distal LAD receives flow predominantly from [place] vessel antegrade flow) Radial graft to the RPDA is patent, however, it is a small graft with diffuse high grade disease, and relatively non functional COLLATERAL FLOW: Collateral flow from Left to Right AORTIC ROOT: Angiographically normal COMPLICATIONS No Complications PROCEDURE MEDICATIONS Versed 1 mg IV Oxygen: 2 L/min via nasal cannula Solu-medrol 125 mg IV 11/05/2021 08:28:33 SUMMARY OF HEMODYNAMIC DATA Time AIR REST ECG 07:49:02 ECG 08:07:10 AO 177/83 (122) SA 09:00:00 LV 163/-2, 26 09:31:09 LV 166/-7, 21 09:31:15 LV 160/6, 29 09:32:05 LV 165/-2, 25 09:32:12 LVp 162/-2, 22 09:32:16 AOp 156/61 (99) 09:32:21 ECG 10:03:34 Signed By José Dailey MD On 11/05/2021 10:17:20 José Dailey MD
== END ==
PROVIDERS: Nurse Practitioner Family; PCP Internal Medicine; Referring Provider Internal Medicine Cardiovascular Disease; Visit Provider Internal Medicine Cardiovascular Disease
DX: I25.119 Atherosclerotic heart disease of native coronary artery with unspecified angina pectoris (principal); N18.30 Chronic kidney disease, stage 3 unspecified; I25.82 Chronic total occlusion of coronary artery; I12.9 Hypertensive chronic kidney disease with stage 1 through stage 4 chronic kidney disease, or unspecified chronic kidney disease; F34.1 Dysthymic disorder; M79.604 Pain in right leg; M79.605 Pain in left leg; E78.5 Hyperlipidemia, unspecified; J45.909 Unspecified asthma, uncomplicated; M10.9 Gout, unspecified; M81.0 Age-related osteoporosis without current pathological fracture; Z79.82 Long term (current) use of aspirin; Z79.899 Other long term (current) drug therapy; Z86.73 Personal history of transient ischemic attack (TIA), and cerebral infarction without residual deficits; Z86.711 Personal history of pulmonary embolism; Z95.1 Presence of aortocoronary bypass graft; Z96.653 Presence of artificial knee joint, bilateral
CPT/HCPCS: 36415; 71046; 80048; 85025; 85610; 85730; 93458; 99152; 99153; J7040; C1769; C1894; Q9967

== ENCOUNTER → 2022-04-04 | Outpatient (CLI) | payer MEDICARE, SELFPAY ==
--- NOTE | 2022-04-04 08:42 | ART_ITS ---
Reason For Study: Claudication Procedure A bilateral lower extremity continuous wave Doppler with analog waveform analysis and ankle brachial indexes. Left Segmental Pressures Left brachial= 199mmHg. Left posterior tibial artery = >254mmHg. Left dorsalis pedis artery = 215mmHg. Left digit = 150 mmHg. Right Segmental Pressures Right brachial= 193mmHg. Right posterior tibial artery = 187mmHg. Right dorsalis pedis artery = 181mmHg. Right digit = 165 mmHg. Indices The right ankle brachial index by the posterior tibial artery is 0.94. The right ankle brachial index by the dorsalis pedis is 0.91. The right digital-brachial index is 0.83. The left ankle brachial index by the posterior tibial artery is NC. The left ankle brachial index by the dorsalis pedis is 215. The left digital-brachial index is 150. VL/Ankle Brachial Index Interpretation Summary Bilateral lower extremities no evidence of significant occlusive disease at res t. Bilateral triphasic flow in PARAMJIT 0.94 and 1.08. Digit brachial index 0.83 and 0.75. Ordering Physician: Marleny Quigley Referring Physician: Marleny Quigley Performed By: Chanelle Meza RDCS/RVT
== END | disposition home or self-care (01) ==
LOC: CVS 08:41
PROVIDERS: PCP Internal Medicine; Referring Provider Physician Assistant Medical; Visit Provider Physician Assistant Medical
DX: I73.9 Peripheral vascular disease, unspecified (principal); Z95.1 Presence of aortocoronary bypass graft
CPT/HCPCS: 93922

== ENCOUNTER → 2022-07-23 | Outpatient (CLI) | payer MEDICARE, SELFPAY ==
--- NOTE | 2022-07-23 16:07 | NEURO ---
NCS and/or EMG Patient Report Ordering Doctor: Viji Correa NP DATE OF SERVICE: 07/23/22 Lorna presents for electrodiagnostic testing of the left lower limb. She reports a cold sensation in her foot with intermittent pain. Electrodiagnostic findings: Left peroneal motor nerve demonstrates normal distal latency, amplitude and conduction velocity. Normal left tibial motor response. Prolonged left and right tibial H reflex. Prolonged left peroneal F-wave. Absent sensory responses in the sural nerve, superficial peroneal nerve and medial plantar nerve. On needle EMG, all muscles tested in the left lower limb showed no evidence of denervation with normal motor unit action potentials. No denervation noted in the left lumbar paraspinals. Electrodiagnostic impression: This is an abnormal study in the left lower limb. 1. Electrodiagnostic findings demonstrate absent sensory responses in the left lower limb. Would recommend correlation with the opposing lower limb to better evaluate for sensory polyneuropathy. 2. There is no electrodiagnostic evidence for lumbosacral radiculopathy.
== END | disposition home or self-care (01) ==
LOC: PSN 07:53
PROVIDERS: PCP Internal Medicine; Referring Provider Nurse Practitioner; Visit Provider Nurse Practitioner
DX: G62.9 Polyneuropathy, unspecified (principal); M79.604 Pain in right leg; M79.605 Pain in left leg
CPT/HCPCS: 95886; 95910

== ENCOUNTER → 2022-09-15 | Outpatient (CLI) | payer MEDICARE, SELFPAY ==
--- NOTE | 2022-09-15 13:42 | RAD_ITS ---
STUDY: X-RAY CHEST REASON FOR EXAM: Female, 82 years old. dyspnea on exertion TECHNIQUE: PA and lateral COMPARISON: None. FINDINGS: Postop change status post median sternotomy and CABG The lungs are clear and expanded. There is no demonstrated pleural abnormality. Normal size heart. Normal mediastinum and iliana. Normal visualized pulmonary arteries. Normal visualized aortic arch and descending thoracic aorta. Dorsal spine demonstrates multilevel chronic compression deformities and degenerative change. Normal visualized ribs, clavicles, and shoulders. There is no demonstrated abnormality of the visualized soft tissue structures of the upper abdomen. RAD/Chest PA and Lateral IMPRESSION: No acute cardiopulmonary pathology status post CABG Electronically Signed: Tio Rincon MD at 20:27 EST ,
[2022-09-15 15:00] LABS: Absolute Lymphocyte Count 1.52 X10^3/uL (0.83-4.51); Absolute Neutrophil Count 4.3 X10^3/uL (2.0-7.7); Basophil# 0.04 X10^3/uL; Basophil% 0.6 % (0-1); Eosinophil# 0.16 X10^3/uL; Eosinophils% 2.3 % (0-5); Hematocrit 37.4 % (37-47); Hemoglobin 11.9 g/dL (12.0-15.0); Lymphocyte # 1.52 X10^3/ul (0.83-4.51); Lymphocyte % 21.4 % (19-41); Mean Corp Hgb Conc 31.8 g/dL (32-36); Mean Corpuscular Hgb 37.7 pg (27.0-32.0); Mean Corpuscular Volume 118.4 fL (81-99); Mean Platelet Vol. 11.7 fl (6.2-12.0); Monocyte% 15.5 % (0-10); NRBC Flagged by Analyzer 0 % (0-5); Neutrophil # 4.25 X10^3/uL (2.7-7.7); Neutrophil % 59.9 % (47-70); POSITIVE MORPHOLOGY YES; Platelet Count 157 K/mm3 (150-450); RBC Distribution Width SD 65.9 fl (35.1-43.9); Red Blood Count 3.16 M/mm3 (4.2-5.4); White Blood Count 7.1 K/mm3 (4.4-11.0)
[2022-09-15 15:07] LABS: Differential Indicated SCAN CRITERIA MET
[2022-09-15 15:18] LABS: Anisocytosis 1+
[2022-09-15 15:19] LABS: Stomatocyte 2+
[2022-09-15 16:08] LABS: AST(SGOT) 25 U/L (15-37); Alanine Aminotransfer ALT/SGPT 28 U/L (13-56); Albumin, Serum 3.6 g/dL (3.2-5.0); Alkaline Phosphatase 83 U/L (45-117); Anion Gap 8 (5-15); BUN 29 mg/dL (7-18); BUN/Creat Ratio 23.8 RATIO (10-20); Bilirubin, Direct 0.09 mg/dL (0.00-0.30); Calcium,Total 9.7 mg/dL (8.5-10.1); Chloride 102 mmol/L (98-107); Cholesterol 151 mg/dL (200); Creatinine, Serum 1.22 mg/dL (0.55-1.02); EST Glomerular Filtration Rate 45 mL/min (>60); Est Glom Filt Rate - Afr Amer 54 mL/min (>60); Globulin 3.5 g/dL (2.2-4.2); Glucose 94 mg/dL (74-106); High Density Lipoprotein 45 mg/dL; Potassium 4.3 mmol/L (3.5-5.1); Protein, Total 7.1 g/dL (6.4-8.2); Sodium Level 139 mmol/L (136-145); Thyroid Stim Hormone (TSH) 2.82 uIU/mL (0.358-3.74); Triglycerides 237 mg/dL; Very Low Density Lipoprotein 47 mg/dL (5-40)
== END | disposition home or self-care (01) ==
PROVIDERS: PCP Internal Medicine; Referring Provider Internal Medicine Cardiovascular Disease; Visit Provider Internal Medicine Cardiovascular Disease
DX: R06.09 Other forms of dyspnea (principal); I25.10 Atherosclerotic heart disease of native coronary artery without angina pectoris; E78.00 Pure hypercholesterolemia, unspecified; I10 Essential (primary) hypertension; R53.83 Other fatigue; Z95.1 Presence of aortocoronary bypass graft; Z86.711 Personal history of pulmonary embolism; F41.9 Anxiety disorder, unspecified
CPT/HCPCS: 36415; 71046; 80048; 80061; 80076; 84443; 85025

== ENCOUNTER → 2022-09-22 | Outpatient (CLI) | payer MEDICARE, SELFPAY ==
--- NOTE | 2022-09-22 13:42 | PFTCOMP_ITS ---
COMPLETE PULMONARY FUNCTION TEST INTERPRETATION Brief HPI: Patient is an 82-year-old female, currently under the care of Dr. Dailey, who presents to [facility] for complete pulmonary function tests secondary to diagnosis of dyspnea. Respiratory therapist reports good effort and reproducible results. Interpretation: Forced expiration spirometry shows a moderately severe large airways obstructive ventilatory defect with an FEV1 of 58% predicted. There is no significant bronchodilator response by strict ATS criteria. Spirograms are of good quality and plateau slowly, indicating slowly emptying areas of the lungs. The respiratory flow volume loop shows decreased expiratory flow rates at all lung volumes consistent with airway obstruction. Lung volumes by body plethysmography show a normal total lung capacity at 4.55 L, 96% predicted. FRC and RV are elevated out of proportion. Lung volume measurements are consistent with air-trapping. Diffusion capacity by carbon monoxide is decreased at 65% predicted. The airway resistance is slightly elevated. No previous pulmonary function tests were available for review. Impression: Irreversible moderately severe large airways obstructive ventilatory defect with a symmetric reduction diffusing capacity, resulting in air trapping
== END | disposition home or self-care (01) ==
LOC: PSN 10:25
PROVIDERS: PCP Internal Medicine; Visit Provider Internal Medicine Cardiovascular Disease
DX: R06.09 Other forms of dyspnea (principal); I25.10 Atherosclerotic heart disease of native coronary artery without angina pectoris; E78.00 Pure hypercholesterolemia, unspecified; I10 Essential (primary) hypertension; R53.83 Other fatigue; Z95.1 Presence of aortocoronary bypass graft
CPT/HCPCS: 94060; 94726; 94729

== ENCOUNTER → 2022-10-07 | Outpatient (CLI) | payer MEDICARE, SELFPAY ==
--- NOTE | 2022-10-07 10:43 | ECHOD_ITS ---
Reason For Study: CAD/ASHD Procedure This was a 2D Doppler, Color Flow transthoracic echocardiogram. The exam was of adequate technical quality. Exam performed in department. Left Ventricle Segmental dysfunction with preserved ejection fraction (see wall motion). The estimated ejection fraction is 55 %. Stage 2 diastolic dysfunction. Infero-Basal: Akinetic. Basal inferoseptal: Hypokinetic. Septal Hudson : Hypokinetic. Right Ventricle Normal RV size. Normal systolic function. Atria The left atrium is moderately enlarged. Normal right atrium. No doppler evidence for ASD. Mitral Valve There is moderate mitral annular calcification. Extension of the mitral annular calcification onto the base of the posterior mitral valve leaflet. The mitral papillary muscle appears thickened and/or calcified. Mild (1+) mitral valve insufficiency. Tricuspid Valve Normal tricuspid valve. Mild tricuspid valve insufficiency. Right ventricular systolic pressure estimated to be 44 mmHg. Aortic Valve Trisinus/trileaflet aortic valve. Normal aortic valve. Pulmonic Valve Normal pulmonic valve. Trivial pulmonic valve insufficiency. Great Vessels Normal sized aortic root. Pericardium/Pleural No pericardial effusion. MMode/2D Measurements & Calculations Ao root diam: 2.8 cm LAV(MOD-sp4): 81.8 ml LVAd ap4: 23.4 cm2 LVLd ap4: 6.1 cm EDV(MOD-sp4): 72.2 ml EDV(sp4-el): 76.0 ml LVAs ap4: 15.3 cm2 LVLs ap4: 5.6 cm ESV(MOD-sp4): 36.4 ml ESV(sp4-el): 35.3 ml EF(MOD-sp4): 49.5 % EF(sp4-el): 53.6 % SV(MOD-sp4): 35.8 ml SV(sp4-el): 40.7 ml LA A4 area: 24.9 cm2 LA dimension(2D): 4.9 cm RA A4 area: 12.0 cm2 Time Measurements MV dec time: 0.23 sec Doppler Measurements & Calculations MV E max david: 76.7 cm/sec Lat Peak E' David: 8.7 cm/sec Med Peak E' David: 6.0 cm/sec MV A max david: 62.9 cm/sec E/E' lat: 8.8 E/E' med: 12.9 MV E/A: 1.2 MV V2 max: 101.0 cm/sec MV dec slope: 342.6 cm/sec2 Ao V2 max: 141.9 cm/sec MV max P.1 mmHg Ao max P.0 mmHg MV V2 mean: 51.3 cm/sec Ao V2 mean: 95.1 cm/sec MV mean P.3 mmHg Ao mean P.2 mmHg MV V2 VTI: 38.5 cm Ao V2 VTI: 35.5 cm AV (velocity ratio): 0.53 LV V1 max: 74.1 cm/sec MR max david: 538.7 cm/sec PA V2 max: 98.7 cm/sec LV V1 max P.2 mmHg MR max P.1 mmHg PA V2 mean: 67.6 cm/sec LV V1 mean P.00 mmHg LV V1 mean: 45.7 cm/sec LV V1 VTI: 18.9 cm TR max david: 301.8 cm/sec TR max P.4 mmHg ECHO/Echo Complete Interpretation Summary Segmental dysfunction with preserved ejection fraction (see wall motion). The estimated ejection fraction is 55 %. The left atrium is moderately enlarged. There is moderate mitral annular calcification. Extension of the mitral annular calcification onto the base of the posterior mi tral valve leaflet. The mitral papillary muscle appears thickened and/or calcified. Mild (1+) mitral valve insufficiency. Mild tricuspid valve insufficiency. Trivial pulmonic valve insufficiency. Right ventricular systolic pressure estimated to be 44 mmHg. Stage 2 diastolic dysfunction. Ordering Physician: José Dailey Referring Physician: Steffany Rose M.D. Performed By: Emili Soares RCS
== END | disposition home or self-care (01) ==
LOC: CVS 10:41
PROVIDERS: PCP Internal Medicine; Visit Provider Internal Medicine Cardiovascular Disease
DX: I25.10 Atherosclerotic heart disease of native coronary artery without angina pectoris (principal); R06.09 Other forms of dyspnea; E78.00 Pure hypercholesterolemia, unspecified; I10 Essential (primary) hypertension; R53.83 Other fatigue; Z86.711 Personal history of pulmonary embolism; Z95.1 Presence of aortocoronary bypass graft
CPT/HCPCS: 93306

== ENCOUNTER 2022-11-21 05:47 | Day surgery (SDC) | payer MEDICARE, SELFPAY ==
--- NOTE | 2022-11-18 08:37 | EKG12_ITS ---
Test Reason : PRE OP Blood Pressure : / mmHG Vent. Rate : 070 BPM Atrial Rate : 070 BPM P-R Int : 178 ms QRS Dur : 094 ms QT Int : 432 ms P-R-T Axes : 047 044 037 degrees QTc Int : 466 ms Normal sinus rhythm Low voltage QRS Nonspecific T wave abnormality Abnormal ECG Confirmed by TARIQ PAYNE, LIZA ([id number]), medical transcription editor ALEXANDER MCDOWELL ([id number]) on 11/19/2022 9:57:46 AM Referred By: Irish Owens Confirmed By:LIZA POTTER MD
[2022-11-18 10:43] LABS: Hematocrit 33.3 % (37-47); Hemoglobin 10.6 g/dL (12.0-15.0); Mean Corp Hgb Conc 31.8 g/dL (32-36); Mean Corpuscular Hgb 36.9 pg (27.0-32.0); Mean Platelet Vol. 11.1 fl (6.2-12.0); Platelet Count 184 K/mm3 (150-450); RBC Distribution Width CV 15.2 % (11.6-14.6); RBC Distribution Width SD 64.5 fl (35.1-43.9); Red Blood Count 2.87 M/mm3 (4.2-5.4); White Blood Count 7.3 K/mm3 (4.4-11.0)
[2022-11-18 11:34] LABS: Anion Gap 4 (5-15); BUN 22 mg/dL (7-18); BUN/Creat Ratio 19.1 RATIO (10-20); Calcium,Total 9.4 mg/dL (8.5-10.1); Chloride 105 mmol/L (98-107); Creatinine, Serum 1.15 mg/dL (0.55-1.02); EST Glomerular Filtration Rate 48 mL/min (>60); Est Glom Filt Rate - Afr Amer 58 mL/min (>60); Glucose 82 mg/dL (74-106); Potassium 4.6 mmol/L (3.5-5.1); Sodium Level 137 mmol/L (136-145)
--- NOTE | 2022-11-19 16:50 | PCM.HP.BLA ---
History and Physical Date of Admission: 11/19/22 Pre-Op History and Physical ? HPI: The patient is a 82 year old female presenting for pre-operative visit. She is scheduled for Hysteroscopy D&C and vulvar biopsy, for PMB, thickened Endometrium, Vulvar dermatitis on 11/21/22. Procedure discussed along with risks, benefits and complications. Other alternatives discussed for management. Consent form signed? Yes. ? ? PAST MEDICAL HISTORY PAST MEDICAL HISTORY Diagnosis Date ? Anxiety ? ? CHRONIC AIRWAY OBSTRUCTION NEC 10/15/2005 ? Empiric Zithromax for bronchitis in 05-01 ? 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 CKD (chronic kidney disease) stage 3, GFR 30-59 ml/min ([facility]) 09/13/2015 ? Coronary artery disease ? ? Diverticulosis of colon (without mention of hemorrhage) ? ? Dysplasia of cervix, unspecified ? ? Dysthymic disorder ? ? Depression (non-psychotic) ? Glaucoma ? ? Gout ? ? Gout, arthropathy ? ? First episode 07/2010 left great toe MTP joint ? Lichen sclerosus ? ? LUMBOSACRAL NEURITIS NOS 02/19/2006 ? Plata 2-09: facet injections on L at L 1, 2, 3, 4, 5 ? Myalgia and myositis, unspecified ? ? Osteoporosis, unspecified ? ? Other pulmonary embolism and infarction 1991 ? was on BCP ? Peripheral vascular disease, unspecified (HCC) ? ? Pure hypercholesterolemia ? ? Rheumatoid arthritis (HCC) ? ? states ? Tobacco use disorder ? ? quit 1999 ? Unspecified asthma(493.90) ? ? Unspecified cardiovascular disease ? ? Unspecified essential hypertension ? ? Vitamin D deficiency 03/03/2014 ? ? PAST SURGICAL HISTORY PAST SURGICAL HISTORY Procedure Laterality Date ? ARTHRP KNE CONDYLE&PLATU MEDIAL&LAT COMPARTMENTS ? 1996 ? Right Knee replacement, total and left knee replacement ? CABG (2) VEIN GRAFTS & ARTERIAL GRAFT(S ? ? ? CABG, ARTERIAL, TWO ? 1999 ? COLONOSCOPY FLX DX W/COLLJ SPEC WHEN PFRMD ? 12/08/2003 ? Colonoscopy ? COLONOSCOPY FLX DX W/COLLJ SPEC WHEN PFRMD ? 11/18/06 ? Diverticulosis/patent colorectal anastomosis ? COLONOSCOPY FLX DX W/COLLJ SPEC WHEN PFRMD ? 04/28/2018 ? Colonoscopy ? IMPLANT MESH OPN HERNIA RPR/DEBRIDEMENT CLOSURE ? 12/01/06 ? LAPS SURG CHOLECYSTECTOMY W/CHOLANGIOGRAPHY ? 12/01/06 ? PAST SURGICAL HISTORY OF ? ? ? neck surgery, cervical disc years ago ? PAST SURGICAL HISTORY OF Bilateral 01/18/2004 ? right and left carpal tunnel release ? PAST SURGICAL HISTORY OF ? ? ? colon/bladder: prolapse ? PAST SURGICAL HISTORY OF ? 08/11/2003 ? sigmoid colectomy/repair colovesical fistula ? PAST SURGICAL HISTORY OF ? ? EMB ? UNLIS LAPS PX HRNAP HERNIORRHAPHY HERNIOTOMY ? 12/01/06 ? ? ? CURRENT MEDICATIONS Current Outpatient Medications Medication Sig Dispense Refill ? clobetasol (TEMOVATE) 0.05 % ointment Apply 1 application to affected area twice daily. TO AFFECTED AREA. 30 g 1 ? docusate sodium (COLACE) 100 mg capsule Take 1 capsule by mouth twice daily as needed for constipation. 60 capsule 5 ? multivitamin (MULTIPLE VITAMINS) tablet Take 1 tablet by mouth once daily. Keven Senior 50+ 30 tablet 11 ? RHOPRESSA 0.02 % ophthalmic drops Use 1 Drop in both eyes every morning. ? ? ? HYDROcodone-Acetaminophen (NORCO) 7.5-325 mg per tablet Take 1 tablet by mouth daily at bedtime. May also take 1 tablet once daily as needed for pain. Do not start before August 07, 2022. 38 tablet 0 ? montelukast (SINGULAIR) 10 mg tablet Take 1 tablet by mouth once daily. 90 tablet 3 ? sertraline (ZOLOFT) 50 mg tablet Take 1 tablet by mouth once daily. 90 tablet 3 ? gabapentin (NEURONTIN) 300 mg capsule Take 2 capsules by mouth twice daily for 180 days. 360 capsule 1 ? doxepin capsule 50 mg Take 1 capsule by mouth daily at bedtime. 90 capsule 3 ? hydroCHLOROthiazide (HYDRODIURIL, ESIDRIX) 12.5 mg capsule Take 1 capsule by mouth once daily. 90 capsule 3 ? simvastatin (ZOCOR) 20 mg tablet Take 1 tablet by mouth daily at bedtime. 90 tablet 3 ? allopurinol (ZYLOPRIM) 100 mg tablet Take 2 tablets by mouth once daily. 180 tablet 3 ? leucovorin (LEUCOVORIN) 5 mg tablet TAKE 1 TABLET BY MOUTH ONCE EACH WEEK. THE DAY AFTER METHOTREXATE DOSE. 12 tablet 3 ? clopidogrel (PLAVIX) 75 mg tablet Take 75 mg by mouth once daily. ? ? ? budesonide-formoterol (SYMBICORT) 160-4.5 mcg/actuation inhaler Inhale 2 Puffs as instructed twice daily. 3 Inhaler 3 ? albuterol HFA (VENTOLIN HFA) 90 mcg/actuation inhaler Inhale 2 Puffs as instructed every 4 hours as needed. (J44.9) Moderate COPD (chronic obstructive pulmonary disease) (HCC) 8 g 1 ? methotrexate 2.5 mg tablet TAKE 5 TABLETS BY MOUTH ONCE WEEKLY 60 tablet 3 ? folic acid 1 mg tablet Take 2 tablets by mouth once daily. 180 tablet 3 ? lisinopril (ZESTRIL, PRINIVIL) 20 mg tablet Take 1 tablet by mouth twice daily. 180 tablet 3 ? aspirin, enteric coated (ASPIR-81) 81 mg EC tablet Take 1 tablet by mouth once daily. 30 tablet 11 ? Cholecalciferol, Vitamin D3, (VITAMIN D) 25 mcg (1,000 unit) cap Take 1 capsule by mouth once daily. 30 capsule 11 ? vit C,H-Cw-ljijb-lutein-zeaxan (PRESERVISION AREDS-2) 250-90-40-1 mg Take 1 capsule by mouth twice daily with meals. 60 capsule 11 ? isosorbide mononitrate ER (IMDUR) 60 mg 24 hr tablet 1 tablet twice daily. ? ? ? brimonidine (ALPHAGAN) 0.2 % ophthalmic solution Use 1 Drop in both eyes twice daily. ? ? ? acetaminophen (TYLENOL) 500 mg tablet Take 500 mg by mouth every 8 hours as needed. ? ? ? melatonin 3 mg capsules Take 6 mg by mouth daily at bedtime. ? ? ? multivit-min/ferrous fumarate (MULTI VITAMIN ORAL) Take 1 tablet by mouth once daily. ? ? ? nitroglycerin sublingual (NITROQUICK) 0.4 mg SL tablet Dissolve 1 tablet under the tongue as needed. FOR CHEST PAIN. IF NO RELIEF CALL 911 25 tablet 3 ? latanoprost (XALATAN) 0.005 % ophthalmic solution Use 1 Drop in both eyes daily at bedtime. ? 12 ? COMPOUNDED PRESCRIPTION BLOOD PRESSURE CUFF FOR HOME USE. DX: LABILE BLOOD PRESSURE 1 Device 0 ? calcipotriene 0.005 % TOPICAL cream Apply to affected area as needed. ? ? 3 ? No current facility-administered medications for this visit. ? ? ALLERGIES: Lopressor [Metoprolol Tartrate], Shellfish, Shellfish Derived, and Sulfa (Sulfonamide Antibiotics) ? PERSONAL HISTORY: SOCIAL HISTORY Social History ? Tobacco Use ? Smoking status: Former ? ? Packs/day: 1.00 ? ? Years: 30.00 ? ? Pack years: 30.00 ? ? Types: Cigarettes ? ? Quit date: 03/24/1999 ? ? Years since quittin.6 ? Smokeless tobacco: Never Vaping Use ? Vaping Use: Never used Substance Use Topics ? Alcohol use: No ? Drug use: No ? FAMILY HISTORY: FAMILY HISTORY FAMILY HISTORY Problem Relation Age of Onset ? Blood Disease Mother ? ? perenicious anemia ? Heart Father ? ? Diabetes Father ? ? other (pulmonary problems) Sister ? ? ? REVIEW OF SYMPTOMS: negative except as noted above PHYSICAL EXAMINATION: ? VITALS: Blood pressure 102/60, pulse 60, resp. rate 22, height 5' 5.5 (1.664 m), weight 198 lb 8 oz (90 kg). ? GENERAL: The patient is well nourished, well hydrated in no acute distress. , The patient is oriented to time, place, and person. NECK: full range of motion LUNGS: Clear to auscultation bilaterally. no wheezes, rhonchi or rales HEART: Regular rate and rhythm and Normal heart sounds ? Indication Postmenopausal bleeding Impression Normal appearing anteverted uterus that measures 47 mm x 29 mm x 31 mm. The central endometrium complex measures 10.1 mm in combined thickness. There is a well circumscribed lesion in the endometrium that demonstrates blood supply this could represent a polyp but other pathology can't be ruled out. 3D imaging performed. Both ovaries are not visualized No adnexal masses were observed. There is no free fluid visualized in the peritoneal cavity. Technique: Three dimensional imaging was created on a dedicated stand-alone 3D workstation with images created and archived, and supervised and reviewed by the interpreting physician utilizing images from a US Scan performed on 10/16/22 ?Duplex scan was performed using B-Mode/carson scale imaging and Doppler spectral analysis and color flow.? Recommendations Consider hysteroscopic evaluation and management of intracavitary lesion if clinically indicated. Method Transabdominal, transvaginal, 3D ultrasound examination, Color Doppler examination Uterus Uterus: Visualized Uterus position: anteverted Uterus long 47 mm Uterus ap 29 mm Uterus tr 31 mm Uterus Vol 21.8 cm? Endometrial thickness, total 10.1 mm Uterine fibroid D1 10 mm Uterine fibroid D2 7 mm Uterine fibroid D3 8 mm Uterine fibroid mean 8.3 mm Uterine fibroid vol 0.293 cm? Uterine fibroids findings: Fundal Right Ovary Rt ovary: Not visualized Left Ovary Lt ovary: Not visualized Cul de Sac Visualized. no free fluid visualized Performed By: Madisyn Funes, YANETH, RVT Read By: Irish Owens M.D. ? ? IMPRESSION: 82yo with PMB, Thickened endometrium, Endometrial polyp and vulvar dermatitis ? PLAN: Hysteroscopy, D&C, Polypectomy with symphion and vulvar biopsy ? Pt has been counseled on risks/benefits and alternatives of surgery including but not limited to anesthesia, bleeding, infection, uterine perforation with subsequent injury to pelvic structures including bowel, bladder, ureters and vessels. Pt wishes to proceed with surgery at this time. ? Pre and post op instructions reviewed. Recent ECHO done - will attach ? I have reviewed and updated past medical and surgical history, medications and allergies Irish Carrasco MD
[2022-11-21] VITALS (9 sets, daily range): BP systolic 106–157; BP diastolic 61–83; PULSE 60–68; RESP 16; TEMP 36.3–36.6; O2SAT 93–99; BMI 35.1
[2022-11-21] MEDS: Lactated Ringers 1,000 ML 15 ML IV (06:25)
--- NOTE | 2022-11-21 07:25 | DCINST_ITS ---
Discharge Instructions Procedure D&C Diet Discharge Diet: No restrictions Activity May resume sexual activity in: 1 week Dressing / Incision Call your doctor if you observe: Fever of 101 or Higher, Inability to urinate, Using more than 1 pad per hour and Uncontrolled pain Follow Up Care Please Follow Up With: Irish Owens MD When: 1-2 weeks post OP if you need an appointment please call [phone] Test Results: Test results from this visit will be discussed in further detail at your follow- up appointment, if applicable. Discharge Plan Admission Attending Provider: Irish Owens Primary Care Provider: Steffany Rose Discharge Orders/Prescriptions Prescriptions: No Action latanoprost 0.005 % drops 1 drp OPHTHALMIC QPM nitroglycerin 0.4 mg tablet, sublingual 0.4 mg SUBLINGUAL Q5-15M PRN (Reason: Chest Pain) docusate sodium [Colace] 100 mg capsule 100 mg PO BID PRN (Reason: Constipation) lisinopril 20 mg tablet 20 mg PO BID brimonidine 0.1 % drops 2 drp ophthalmic (eye) DAILY acetaminophen 500 mg tablet 500 mg PO Q8H PRN (Reason: Pain) cholecalciferol (vitamin D3) 25 mcg (1,000 unit) tablet 25 mcg PO DAILY hydrochlorothiazide 12.5 mg tablet 12.5 mg PO DAILY clobetasol 0.05 % cream 1 applic topical BID aspirin [Adult Aspirin Regimen] 81 mg tablet,delayed release (DR/EC) 81 mg PO DAILY calcipotriene 0.005 % cream 1 applic topical DAILY PRN (Reason: PSORIASIS) Rx Instructions: rub in gently and completely melatonin 3 mg capsule 6 mg PO HS PRN (Reason: Insomnia) montelukast 10 mg tablet 10 mg PO QHS multivitamin Tablet 1 tab PO DAILY sertraline 50 mg tablet 50 mg PO DAILY tramadol 50 mg tablet 50 mg PO TID PRN (Reason: Pain) doxepin 50 MG capsule 50 mg PO QHS simvastatin 20 MG tablet 20 mg PO QHS leucovorin calcium 5 MG tablet 5 mg PO QWEEK Label Comments: once a week with methotrexate folic acid 1 MG tablet 2 mg PO DAILY albuterol sulfate 1 INHALER inhaler 1 - 2 puff inhalation Q4H PRN PRN (Reason: sob) methotrexate sodium 2.5 mg tablet 12.5 mg PO FR gabapentin 300 mg capsule 900 mg PO QHS allopurinol 100 mg tablet 200 mg PO DAILY diphenhydramine HCl [Benadryl Allergy] 25 mg tablet 25 mg PO PRN PRN (Reason: ALLERGIES) Rx Instructions: 25 mg PO; 2 tabs bedtime 11/04, 2 tabs morning 11/05 PreserVision AREDS [id number] capsule 1 cap PO BID Stiolto Respimat 2.5-2.5 mcg/actuation mist 2 inh inhalation DAILY Qty: 4 2RF clopidogrel [Plavix] 75 mg tablet 75 mg PO QDAY Qty: 30 11RF isosorbide mononitrate 60 mg tablet extended release 24 hr 60 mg PO BID Qty: 60 12RF Referrals / Follow Up: Steffany Rose MD [Primary Care Provider] - Disposition Disposition (needs filled in before D/C Order can be placed): Home, Self Care
--- NOTE | 2022-11-21 07:25 | PCM.OPRPT ---
Problems Associated Problem List Diagnoses (1) PMB (postmenopausal bleeding): (2) Thickened endometrium: (3) Vulvar dermatitis: Report of Operation Date of Procedure: 11/21/22 Pre-Operative Diagnosis: PMB, thickened endometrium, vulvar dermatitis Post-Operative Diagnosis: Same, stenotic cervix Surgery/Procedure Performed:: Hysteroscopy, D&C, Vulvar biopsy Description of Surgical Findings:: tubal ostia visualized- endometrium appears atrophic except tissue on anterior aspect of uterus. Surgeon: Irish Owens Type of Anesthesia: Local and MAC Special Medications: 1% lidocaine Specimen's removed: vulvar biopsy, Endometrial curettings Drains: none Estimated Blood Loss (mL): <5cc Fluids Replaced: 800 Description of Procedure: Informed consent was obtained the patient was taken the operating room she was placed in supine position. She was given anesthesia. She was then placed in the [facility] where she was prepped and draped in the normal sterile fashion. At this time the weighted speculum was placed in the posterior fornix of vagina. Single-tooth tenaculum was used to gently grasp the anterior lip the cervix. At this time the uterine cavity was sounded to approximately 5 cm. Cervix was stenotic- Gentle dilatation was performed once adequate dilatation of the cervix was achieved the hysteroscope using normal saline as a distention medium was placed. Tubal ostia visualized. Thickened tissue noted on anterior aspect of uterus. Symphion resecting device used to obtain endometrial curettings and to removed thickened tissue on anterior aspect. Tissue will be sent to pathology for evaluation. Tenaculum removed. Good hemostasis. Vulvar biopsy performed- area anesthetized with 3cc 1% lidocaine and 3mm [place] biopsy used to obtain tissue right perineal area. Instrument, lap count correct x 2. Vaginal Sweep was negative. Fluid deficit 300cc Grafts/Implants Used: none Procedure Start Time: 07:44 Procedure Stop Time: 07:59 Complications none Admit VTE Documentation VTE Present on Admission: Yes VTE Mechan Device Prophylaxis: SCD's VTE Pharm Prophylaxis ordered?: No Reason prophylaxis not ordered:: Procedure Not Indicated
--- NOTE | 2022-11-21 07:30 | EMB_PTH ---
PATIENT: TALIA BURT LOC: [facility] U#:[id number] AGE/SX: 82/F ROOM: RE11/21/[address]: Dr. Irish Owens, MDDOB: 1940 BED: DIS: 11/21/2022 SPEC #: [id number] RECD: 11/21/22 12:08 STATUS: SAURAV BILLIE #: [id number] FELIX: 11/21/22 07:[address]: Irish Owens DEPT: SURGICAL PATHOLOGY RECD BY: Julia Brush ENTERED: 11/21/22 13:10 SP TYPE: ENDOM BX/C RACHEL DR: Dr. Steffany Rose MD Tissues: A - Perineum, NOS B - Endometrium, NOS Procedures: Surgery Specimen Level IV HEADER OPERATION: Hysteroscopy, D & C, polypectomy vulvar biopsy PRE-OP DIAGNOSIS: Thickened endometrium, endometrial polyp and vulvar dermatitis TISSUE SUBMITTED: A ? Right perineum biopsy, B ? Endometrial curettings MICROSCOPIC DIAGNOSIS A. Right perineum, biopsy: Focal minimal chronic inflammation. Negative for dysplasia/malignancy. B. Endometrial curettings: Inactive endometrium with cystic changes. LIZ:justice 11/24/2022 COMMENT Correlation with clinical findings and appropriate follow up are necessary. Case has been reviewed in consultation with Dr. Olivo who concurs with the above diagnosis. IDC:AM MICROSCOPIC DESCRIPTION Slides are reviewed. GROSS DESCRIPTION A - Received in fixative is one container labeled with the patient's name and designated right perineum biopsy. The specimen consists of a piece of urbano-white skin measuring 0.7 x 0.2 x 0.1 cm. The specimen is totally submitted in one cassette. B - Received in fixative is one container labeled with the patient's name and designated endometrial curettings. The specimen consists of multiple irregular fragments of urbano soft tissue that in aggregate measure 2.5 x 1.5 x 0.2 cm. The specimen is totally submitted in one cassette. / LIZ:justice 11/21/2022 TC:5 CPT: 75917 x2
[2022-11-21] MEDS: Lidocaine 1% (20 ml mdv) 20 ML Vial OPERA.SITE (07:54)
[2022-11-21] MEDS: Silver Nitrate (BKC) 1 EACH (07:58)
== END 2022-11-21 09:22 | disposition home or self-care (01) ==
LOC: SDC 05:47 → AC 05:48
PROVIDERS: PCP Internal Medicine; Referring Provider Obstetrics & Gynecology; Visit Provider Obstetrics & Gynecology
PROC: 0UB98ZZ Excision of Uterus, Via Natural or Artificial Opening Endoscopic (ICD-10-PCS; CPT 58558; principal; 2022-11-21 07:15)
DX: N95.0 Postmenopausal bleeding (principal); L30.9 Dermatitis, unspecified; J44.9 Chronic obstructive pulmonary disease, unspecified; I12.9 Hypertensive chronic kidney disease with stage 1 through stage 4 chronic kidney disease, or unspecified chronic kidney disease; N18.30 Chronic kidney disease, stage 3 unspecified; I25.10 Atherosclerotic heart disease of native coronary artery without angina pectoris; E78.00 Pure hypercholesterolemia, unspecified; F34.1 Dysthymic disorder; Z79.82 Long term (current) use of aspirin; Z79.899 Other long term (current) drug therapy; Z87.891 Personal history of nicotine dependence
CPT/HCPCS: 58558; 56605; 36415; 80048; 85027; 88305; 93005; J7120; J2405

== ENCOUNTER 2023-01-17 13:51 | Observation (INO) | payer MEDICARE, SELFPAY ==
[2023-01-17] VITALS (8 sets, daily range): BP systolic 151–174; BP diastolic 47–113; PULSE 71–93; RESP 14–18; TEMP 36.1–36.9; O2SAT 90–99; BMI 33.5
--- NOTE | 2023-01-17 14:00 | CT_ITS ---
INDICATION: Headache after injury. EXAMINATION: CT Head or Brain W/O Contrast Injection TECHNIQUE: Multiple axial images were obtained of the head without intravenous contrast. A radiation dose optimization technique was used for this scan. IV Contrast dosage and agent: None. COMPARISON: MRI brain October 29, 2016. FINDINGS: BRAIN PARENCHYMA: No intra- or extra-axial hemorrhage. No evidence of acute infarct. No intracranial mass or mass effect. No vasogenic edema. There is preservation of the carson/white matter interface. Parenchymal volume loss and small vessel ischemic disease changes, appropriate for age. Posterior fossa structures are unremarkable. CSF SPACES: Appropriate for age. No hydrocephalus. Basal cisterns are patent. Intracranial atherosclerosis. No focal dense vessel sign. CALVARIUM, SKULL BASE, PARANASAL SINUSES AND MASTOID AIR CELLS: Clear. No discrete lytic or blastic abnormalities. Old posterior right maxillary sinus wall and zygomatic arch fractures. Number mandibular joints are intact. ORBITS: Bilateral cataract repair. No acute orbital abnormality. ASPECTS Score for Acute Strokes: 10 CT/Brain/Head without Contrast IMPRESSION: No acute intracranial findings. Electronically Signed: José Wilde MD at 15:48 EDT ,
--- NOTE | 2023-01-17 14:00 | RAD_ITS ---
INDICATION: Hypoxia. EXAMINATION/TECHNIQUE: X-RAY - XR Chest 1 View COMPARISON: September 15, 2022 chest x-ray. FINDINGS: LINES/DEVICES: None. LUNGS: No focal consolidation or pleural effusion. Interstitial coarsening in both lungs. Calcified granulomas unchanged. No pneumothorax. MEDIASTINUM AND CARDIOVASCULAR STRUCTURES: Median sternotomy, CABG, normal size of the cardiac silhouette. BONES AND SOFT TISSUES: Osteopenia and degenerative changes of the spine and shoulders, stable appearance. RAD/Chest 1 View (Portable) IMPRESSION: No acute cardiopulmonary disease. Electronically Signed: Jsoé Wilde MD at 15:07 EDT ,
--- NOTE | 2023-01-17 14:01 | EKG12_ITS ---
Test Reason : FALL Blood Pressure : / mmHG Vent. Rate : 082 BPM Atrial Rate : 104 BPM P-R Int : 000 ms QRS Dur : 098 ms QT Int : 384 ms P-R-T Axes : 085 044 -24 degrees QTc Int : 448 ms Sinus tachycardia with 2nd degree A-V block (Mobitz I) T wave abnormality, consider inferior ischemia Abnormal ECG Confirmed by TARIQ PAYNE, LIZA ([id number]), writer editor ALEXANDER MCDOWELL ([id number]) on 01/20/2023 10:29:34 AM Referred By: Confirmed By:LIZA POTTER MD
--- NOTE | 2023-01-17 14:04 | CT_ITS ---
INDICATION: Neck pain after trauma. EXAMINATION: CT Spine Cervical W/O Contrast Injection TECHNIQUE: Helically acquired images were obtained of the cervical spine. 2D reformatted images were reviewed. A radiation dose optimization technique was used for this scan. IV Contrast dosage and agent: None. COMPARISON: None. FINDINGS: VERTEBRAE: Osteopenia. No fracture or traumatic subluxation. No discrete lytic or blastic abnormality. Normal alignment. Normal craniocervical junction and cervicothoracic junction. DISCS and SPINAL CANAL: Multilevel degenerative disc disease changes, most significant at C5-6 and C6-7 with at least moderate osseous neural foraminal narrowing. NECK SOFT TISSUES: No prevertebral soft tissue swelling. There is no cervical adenopathy. Carotid arterial calcifications. Thyroid gland is unremarkable. LUNG APICES: Emphysematous changes. CT/Spine Cervical without Contras IMPRESSION: No acute cervical spine osseous injury. Cervical spondylosis changes. Electronically Signed: José Wilde MD at 15:33 EDT ,
--- NOTE | 2023-01-17 14:06 | EDS_ITS ---
HPI History of Present Illness Chief Complaint: Weakness Narrative Narrative: Patient presents with weakness and a fall. She had symptoms of a UTI, daughter came to pick her up and she had just fallen due to her weakness, she says it is difficult. Get up and she could not get up on her own. She hit her head but no loss of consciousness. She is found to be hypoxic when she arrives she has history of COPD but other than weakness she does not feel any worse EXTR shortness of breath. No reported fevers or chills. [facility] Medical History Ambulates with cane Anemia Anemia Angina pectoris Anxiety Anxiety Arthritis Asthma Atherosclerotic heart disease of [place] coronary artery without angina pectoris Cardiology follow-up encounter Chest pain Chronic airway obstruction CKD (chronic kidney disease) stage 3, GFR 30-59 ml/min Constipation COPD (chronic obstructive pulmonary disease) Depression Depression Diarrhea Diverticulosis DVT (deep venous thrombosis) Dysplasia of cervix, unspecified Dysthymic disorder Emphysema, unspecified Essential hypertension Fatigue Forgetfulness Glaucoma Gout History of dermatomyositis History of diverticulitis History of echocardiogram History of edema History of heart attack History of left heart catheterization (LHC) (~11/05/21) History of renal disease History of stress test Hx of intestinal obstruction Hx TIA/stroke w/o resid Hypertension Lichen sclerosus Lichen sclerosus Low iron Lung nodule Myalgia Osteoporosis Other pulmonary embolism and infarction Post-menopausal Pulmonary embolism Pure hypercholesterolemia PVD (peripheral vascular disease) Rectocele Restless legs Scleroderma Shortness of breath on exertion SOB (shortness of breath) Walker as ambulation aid Wears dentures Wears glasses Home Medications albuterol sulfate 90 mcg/actuation aerosol inhaler 1 - 2 puff inhalation Q4H PRN PRN sob 10/10/15 [History Last Taken Unknown] doxepin 50 mg capsule 50 mg PO QHS 10/10/15 [History Last Taken Unknown] folic acid 1 mg tablet 2 mg PO DAILY 10/10/15 [History Last Taken Unknown] leucovorin calcium 5 mg tablet 5 mg PO QWEEK 10/10/15 [History Last Taken Unknown] simvastatin 20 mg tablet 20 mg PO QHS 10/10/15 [History Last Taken Unknown] allopurinol 100 mg tablet 200 mg PO DAILY 01/12/19 [History Last Taken Unknown] latanoprost 0.005 % eye drops 1 drp ophthalmic (eye) QPM 01/12/19 [History Last Taken Unknown] nitroglycerin 0.4 mg sublingual tablet 0.4 mg sublingual Q5-15M PRN Chest Pain 01/12/19 [History Last Taken Unknown] acetaminophen 500 mg tablet 500 mg PO Q8H PRN Pain 06/26/21 [History Last Taken Unknown] cholecalciferol (vitamin D3) 25 mcg (1,000 unit) tablet 25 mcg PO DAILY 06/26/21 [History Last Taken Unknown] clobetasol 0.05 % topical cream 1 applic topical BID 06/26/21 [History Last Taken Unknown] hydrochlorothiazide 12.5 mg tablet 12.5 mg PO DAILY 06/26/21 [History Last Taken Unknown] methotrexate sodium 2.5 mg tablet 12.5 mg PO FR 06/26/21 [History Last Taken Unknown] brimonidine 0.1 % eye drops 2 drp ophthalmic (eye) DAILY 07/11/21 [History Last Taken Unknown] lisinopril 20 mg tablet 20 mg PO BID 07/11/21 [History Last Taken 11/05/21] aspirin 81 mg tablet,delayed release (Adult Aspirin Regimen) 81 mg PO DAILY 10/08/21 [History Last Taken 11/20/22] calcipotriene 0.005 % topical cream 1 applic topical DAILY PRN PSORIASIS 10/08/21 [History Last Taken Unknown] docusate sodium 100 mg capsule (Colace) 100 mg PO BID PRN Constipation 10/08/21 [History Last Taken Unknown] gabapentin 300 mg capsule 900 mg PO QHS 10/08/21 [History Last Taken Unknown] melatonin 3 mg capsule 6 mg PO HS PRN Insomnia 10/08/21 [History Last Taken Unknown] montelukast 10 mg tablet 10 mg PO QHS 10/08/21 [History Last Taken Unknown] multivitamin 1 tab PO DAILY 10/08/21 [History Last Taken Unknown] sertraline 50 mg tablet 50 mg PO DAILY 10/08/21 [History Last Taken Unknown] tramadol 50 mg tablet 50 mg PO TID PRN Pain 10/08/21 [History Last Taken Unknown] vitamins A,C,F-dvnd-xhhslk 4,296 mcg-226 mg-90 mg capsule (PreserVision AREDS) 1 cap PO BID 12/09/21 [History Last Taken Unknown] clopidogrel 75 mg tablet (Plavix) 75 mg PO QDAY #30 tabs 11/07/22 [Rx Last Taken Unknown] isosorbide mononitrate 60 mg tablet,extended release 24 hr 60 mg PO BID #60 tabs 11/11/22 [Rx Last Taken Unknown] diphenhydramine HCl 25 mg tablet (Benadryl Allergy) 25 mg PO PRN PRN ALLERGIES 11/14/22 [History Last Taken Unknown] tiotropium 2.5 mcg-olodaterol 2.5 mcg/actuation mist for inhalation (Stiolto Respimat) 2 inh inhalation DAILY #4 grams 12/29/22 [Rx Last Taken Unknown] Allergy/AdvReac Type Severity Reaction Status Date / Time metoprolol tartrate Allergy Unknown Verified 01/17/23 13:53 [From Lopressor] shellfish derived Allergy Anaphylaxis Verified 01/17/23 13:53 Sulfa (Sulfonamide Allergy Rash Verified 01/17/23 13:53 Antibiotics) Family History Father Heart disease Myocardial infarction Surgical History History of cholecystectomy History of coronary artery bypass surgery (~08/10/00) History of intraocular lens implant History of left knee replacement History of total right knee replacement Hx of colonoscopy Hx of heart bypass surgery Social History Smoking Status: Unknown if ever smoked second hand exposure: Yes alcohol intake: never substance use type: does not use caffeine: Yes what type of physical activity do you participate in: none frequency: does not exercise ROS ROS ED ROS Narrative Past medical history: Reviewed Medications: Reviewed Social history: Noncontributory Review of systems: General: No fever, generalized weakness Eyes: No visual changes ENT: No upper airway congestion, normal voice Neck: No neck pain Cardiovascular: No chest pain Respiratory: No shortness of breath or cough Gastrointestinal: No abdominal pain, nausea vomiting or diarrhea Genitourinary: Urinary symptoms. Musculoskeletal: No pain in the extremities. Skin: No rash Neurological: No memory loss, confusion or any focal weakness. Generalized weakness EXAM Physical Exam Narrative Exam Narrative: Physical exam General: Patient appears chronically ill she does not appear acutely ill. She does not appear in significant distress Head: Normocephalic, Atraumatic Eyes: Conjunctiva not pale ENT: Somewhat dry mucous membranes Neck: Supple, Nontender, No lymphadenopathy Cardiovascular: Regular rate, Regular rhythm Respiratory: Coarse bilateral breath sounds with end expiratory wheezing. She is speaking in full sentences. She does not have any retractions Abdomen: Soft, Nontender, Nondistended Back: Nontender, Normal Inspection. Negative for: CVA tenderness Extremities: Nontender, No edema Skin: Normal color, No rash Neurological: Alert, Normal Strength, Normal Sensation Const Vital Signs: 01/17/23 13:53 01/17/23 13:56 01/17/23 14:02 Temperature 97.5 F L Temperature Source Oral Pulse Rate 93 Respiratory Rate 14 Respiratory Effort Normal Blood Pressure 151/61 H Blood Pressure Mean 91 Pulse Ox 90 95 Oxygen Delivery Method Room Air Nasal Cannula Oxygen Flow Rate (L/min) 2 MDM MDM MDM Narrative Medical decision making narrative: I discussed the patient with daughter who provided some of the history, patient is found to be hypoxic at 89, she did have wheezing and coarse breath sounds consistent with her prior COPD which is likely the cause of her hypoxia. She also has urgency and frequency and some pressure when she urinates with a slight UTI which I will treat. She has significant weakness was unable to get up after falling therefore she will need admission. She did not hit her head though she does not meet criteria for CT of the head. Will discuss with hospitalist for admission. There is no evidence of sepsis. Blood cultures were sent. She was given Solu-Medrol and Decadron for her COPD. Lab Data Labs: Laboratory Results - last 24 hr 01/17/23 01/17/23 01/17/23 14:45 14:57 14:57 WBC 7.4 RBC 3.42 L Hgb 12.2 Hct 38.0 MCV 111.1 H MCH 35.7 H MCHC 32.1 RDW Std Deviation 58.4 H RDW Coeff of Alexandra 14.3 Plt Count 164 MPV 11.3 Immature Gran % (Auto) 0.100 Neut % (Auto) 67.9 Lymph % (Auto) 20.1 [place] % (Auto) 10.2 H Eos % (Auto) 1.2 Baso % (Auto) 0.5 Absolute Neuts (auto) 5.0 Absolute Lymphs (auto) 1.49 Nucleated RBC % 0 Sodium 141 Potassium 4.0 Chloride 105 Carbon Dioxide 28.0 Anion Gap 8 BUN 20 H Creatinine 1.24 H Estim Creat Clear Calc 30.73 Est GFR (MDRD) Af Amer 53 L Est GFR (MDRD) Non-Af 44 L BUN/Creatinine Ratio 16.1 Glucose 122 H Lactic Acid Calcium 10.5 H Total Bilirubin 0.30 AST 40 H ALT 26 Alkaline Phosphatase 87 Troponin I High Sens 6 Total Protein 7.5 Albumin 3.6 Globulin 3.9 Albumin/Globulin Ratio 0.9 Urine Color Yellow Urine Clarity Sl. Cloudy Urine pH 8.0 Ur Specific [place] 1.015 Urine Protein 30 H Urine Glucose (UA) Normal Urine Ketones Negative Urine Occult Blood 10 H Urine Nitrite Negative Urine Bilirubin Negative Urine Urobilinogen Normal Ur Leukocyte Esterase 500 H Urine RBC 0 SEEN Urine WBC 10-25 SEEN Ur Squamous Epith Cells 0-5 SEEN Urine Bacteria 0 SEEN Urine Mucus 0 SEEN 01/17/23 14:57 WBC RBC Hgb Hct MCV MCH MCHC RDW Std Deviation RDW Coeff of Alexandra Plt Count MPV Immature Gran % (Auto) Neut % (Auto) Lymph % (Auto) [place] % (Auto) Eos % (Auto) Baso % (Auto) Absolute Neuts (auto) Absolute Lymphs (auto) Nucleated RBC % Sodium Potassium Chloride Carbon Dioxide Anion Gap BUN Creatinine Estim Creat Clear Calc Est GFR (MDRD) Af Amer Est GFR (MDRD) Non-Af BUN/Creatinine Ratio Glucose Lactic Acid 1.8 Calcium Total Bilirubin AST ALT Alkaline Phosphatase Troponin I High Sens Total Protein Albumin Globulin Albumin/Globulin Ratio Urine Color Urine Clarity Urine pH Ur Specific [place] Urine Protein Urine Glucose (UA) Urine Ketones Urine Occult Blood Urine Nitrite Urine Bilirubin Urine Urobilinogen Ur Leukocyte Esterase Urine RBC Urine WBC Ur Squamous Epith Cells Urine Bacteria Urine Mucus Radiography Diagnostic Testing: Clinical Impression(s) from Imaging Studies Brain CT 01/17/23 14:00 IMPRESSION: No acute intracranial findings. Electronically Signed: José Wilde MD at 15:48 EDT , Chest X-Ray 01/17/23 14:00 IMPRESSION: No acute cardiopulmonary disease. Electronically Signed: José Wilde MD at 15:07 EDT , Cervical Spine CT 01/17/23 14:04 IMPRESSION: No acute cervical spine osseous injury. Cervical spondylosis changes. Electronically Signed: José Wilde MD at 15:33 EDT , Chest x-ray read by me as normal EKG Initial EKG: Comments: Sinus rhythm with a rate 82. There is a second-degree AV block consistent with Mobitz 1. Normal QTc interval. T wave abnormalities throughout. Otherwise unremarkable EKG Interpreted by emergency doctor Discharge Plan Triage Chief Complaint: Weakness ED Provider: José Krishnan Dx/Rx/DC Orders Clinical Impression: Hypoxia, COPD exacerbation, Weakness, Acute UTI Prescriptions: No Action latanoprost 0.005 % drops 1 drp OPHTHALMIC QPM nitroglycerin 0.4 mg tablet, sublingual 0.4 mg SUBLINGUAL Q5-15M PRN (Reason: Chest Pain) docusate sodium [Colace] 100 mg capsule 100 mg PO BID PRN (Reason: Constipation) lisinopril 20 mg tablet 20 mg PO BID brimonidine 0.1 % drops 2 drp ophthalmic (eye) DAILY acetaminophen 500 mg tablet 500 mg PO Q8H PRN (Reason: Pain) cholecalciferol (vitamin D3) 25 mcg (1,000 unit) tablet 25 mcg PO DAILY hydrochlorothiazide 12.5 mg tablet 12.5 mg PO DAILY clobetasol 0.05 % cream 1 applic topical BID aspirin [Adult Aspirin Regimen] 81 mg tablet,delayed release (DR/EC) 81 mg PO DAILY calcipotriene 0.005 % cream 1 applic topical DAILY PRN (Reason: PSORIASIS) Rx Instructions: rub in gently and completely melatonin 3 mg capsule 6 mg PO HS PRN (Reason: Insomnia) montelukast 10 mg tablet 10 mg PO QHS multivitamin Tablet 1 tab PO DAILY sertraline 50 mg tablet 50 mg PO DAILY tramadol 50 mg tablet 50 mg PO TID PRN (Reason: Pain) doxepin 50 MG capsule 50 mg PO QHS simvastatin 20 MG tablet 20 mg PO QHS leucovorin calcium 5 MG tablet 5 mg PO QWEEK Label Comments: once a week with methotrexate folic acid 1 MG tablet 2 mg PO DAILY albuterol sulfate 1 INHALER inhaler 1 - 2 puff inhalation Q4H PRN PRN (Reason: sob) methotrexate sodium 2.5 mg tablet 12.5 mg PO FR gabapentin 300 mg capsule 900 mg PO QHS allopurinol 100 mg tablet 200 mg PO DAILY diphenhydramine HCl [Benadryl Allergy] 25 mg tablet 25 mg PO PRN PRN (Reason: ALLERGIES) Rx Instructions: 25 mg PO; 2 tabs bedtime 11/04, 2 tabs morning 11/05 PreserVision AREDS [id number] capsule 1 cap PO BID clopidogrel [Plavix] 75 mg tablet 75 mg PO QDAY Qty: 30 11RF isosorbide mononitrate 60 mg tablet extended release 24 hr 60 mg PO BID Qty: 60 12RF Stiolto Respimat 2.5-2.5 mcg/actuation mist 2 inh inhalation DAILY Qty: 4 2RF Primary Care Provider: Steffany Rose Referrals: Steffany Rose MD [Primary Care Provider] -
[2023-01-17 14:55] LABS: Bacteria 0 SEEN /hpf (None Seen); Mucous, Urine 0 SEEN /hpf (<or=2+); Red Blood Cells-Urine 0 SEEN /hpf (0-5)
[2023-01-17 15:00] LABS: Color, Urine Yellow (Yellow); Glucose, Dipstick Normal (Normal); Ketone-Dipstick Negative (Negative); Leukocyte Esterase-Dipstick 500 /ul (Negative); Nitrite-Dipstick Negative (Negative); Occult Blood-Urine 10 /ul (Negative); Protein-Dipstick 30 mg/dl (Negative); Specific Gravity, Urine 1.015 (1.002-1.030); Urine Bilirubin Dipstick Negative (Negative); Urine Clarity Sl. Cloudy (Clear); Urine Urobilinogen Normal (Normal)
[2023-01-17 15:01] LABS: Absolute Lymphocyte Count 1.49 X10^3/uL (0.83-4.51); Basophil# 0.04 X10^3/uL; Basophil% 0.5 % (0-1); Eosinophil# 0.09 X10^3/uL; Eosinophils% 1.2 % (0-5); Hemoglobin 12.2 g/dL (12.0-15.0); Lymphocyte # 1.49 X10^3/ul (0.83-4.51); Lymphocyte % 20.1 % (19-41); Mean Corp Hgb Conc 32.1 g/dL (32-36); Mean Corpuscular Hgb 35.7 pg (27.0-32.0); Mean Corpuscular Volume 111.1 fL (81-99); Mean Platelet Vol. 11.3 fl (6.2-12.0); Monocyte# 0.76 X10^3/uL; Monocyte% 10.2 % (0-10); NRBC Flagged by Analyzer 0 % (0-5); Neutrophil # 5.04 X10^3/uL (2.7-7.7); Neutrophil % 67.9 % (47-70); Platelet Count 164 K/mm3 (150-450); RBC Distribution Width CV 14.3 % (11.6-14.6); RBC Distribution Width SD 58.4 fl (35.1-43.9); Red Blood Count 3.42 M/mm3 (4.2-5.4); White Blood Count 7.4 K/mm3 (4.4-11.0)
[2023-01-17 15:13] LABS: Squamous Epithelial Cells - UA 0-5 SEEN /hpf (5-10); White Blood Cells 10-25 SEEN /hpf (0-5)
[2023-01-17 15:20] LABS: ALB/GLOB Ratio 0.9 RATIO (0.9-2.4); AST(SGOT) 40 U/L (15-37); Alanine Aminotransfer ALT/SGPT 26 U/L (13-56); Albumin, Serum 3.6 g/dL (3.2-5.0); Alkaline Phosphatase 87 U/L (45-117); Anion Gap 8 (5-15); BUN 20 mg/dL (7-18); BUN/Creat Ratio 16.1 RATIO (10-20); Calcium,Total 10.5 mg/dL (8.5-10.1); Chloride 105 mmol/L (98-107); Creatinine, Serum 1.24 mg/dL (0.55-1.02); EST Glomerular Filtration Rate 44 mL/min (>60); Est Glom Filt Rate - Afr Amer 53 mL/min (>60); Estimated Creatinine Clearance 30.73 ml/min; Globulin 3.9 g/dL (2.2-4.2); Glucose 122 mg/dL (74-106); Protein, Total 7.5 g/dL (6.4-8.2); Sodium Level 141 mmol/L (136-145); Troponin-I HS 6 pg/mL (3.0-54.0)
[2023-01-17 15:39] LABS: Lactic Acid 1.8 mmol/L (0.4-1.9)
[2023-01-17] MEDS: Ipratropium/Albuterol Sulfate 3 ML AMPUL.NEB INHALATION ×2 (16:05→20:15)
[2023-01-17] MEDS: MethylPREDNISolone 125 MG/2 ML Vial IV (16:08)
[2023-01-17] MEDS: 0.9% Normal Saline 1,000 ML 75 ML IV (18:01)
--- NOTE | 2023-01-17 18:57 | HP.PCM.HOS_ITS ---
HPI - General General Date of Admission: 01/17/23 Date of Service: 01/17/23 Chief Complaint: Generalized debility, urinary tract infection HPI Narrative TALIA BURT, is a 82 F who presents to the emergency room at [facility] after being brought in by squad due to generalized weakness at home, patient went outside and laid in the front yard, family members try to get her up but were unable to due to weakness. Work-up in the emergency room included a CBC which showed a normal white count and hemoglobin, chemistry panel was remarkable for a BUN of 20 and a creatinine of 1.24, glucose was 122, AST was 40. Patient's urinalysis revealed 10-25 WBCs, no bacteria, no red cells, and 500 leukocyte esterase. Patient's chest x-ray showed no active disease, patient's pulse ox on room air was 88% and she was placed on 2 L via nasal cannula. Patient will be placed in observation status for generalized debility, exacerbation of COPD, and acute cystitis, she will be seen by PT and OT. [facility] Medical History Ambulates with cane Anemia Anemia Angina pectoris Anxiety Anxiety Arthritis Asthma Atherosclerotic heart disease of [place] coronary artery without angina pectoris Cardiology follow-up encounter Chest pain Chronic airway obstruction CKD (chronic kidney disease) stage 3, GFR 30-59 ml/min Constipation COPD (chronic obstructive pulmonary disease) Depression Depression Diarrhea Diverticulosis DVT (deep venous thrombosis) Dysplasia of cervix, unspecified Dysthymic disorder Emphysema, unspecified Essential hypertension Fatigue Forgetfulness Glaucoma Gout History of dermatomyositis History of diverticulitis History of echocardiogram History of edema History of heart attack History of left heart catheterization (LHC) (~11/05/21) History of renal disease History of stress test Hx of intestinal obstruction Hx TIA/stroke w/o resid Hypertension Lichen sclerosus Lichen sclerosus Low iron Lung nodule Myalgia Osteoporosis Other pulmonary embolism and infarction Post-menopausal Pulmonary embolism Pure hypercholesterolemia PVD (peripheral vascular disease) Rectocele Restless legs Scleroderma Shortness of breath on exertion SOB (shortness of breath) Walker as ambulation aid Wears dentures Wears glasses Home Medications albuterol sulfate 90 mcg/actuation aerosol inhaler 1 - 2 puff inhalation Q4H PRN PRN sob 10/10/15 [History Last Taken Unknown] doxepin 50 mg capsule 50 mg PO QHS 10/10/15 [History Last Taken Unknown] folic acid 1 mg tablet 2 mg PO DAILY 10/10/15 [History Last Taken Unknown] leucovorin calcium 5 mg tablet 5 mg PO QWEEK 10/10/15 [History Last Taken Unknown] simvastatin 20 mg tablet 20 mg PO QHS 10/10/15 [History Last Taken Unknown] allopurinol 100 mg tablet 200 mg PO DAILY 01/12/19 [History Last Taken Unknown] latanoprost 0.005 % eye drops 1 drp ophthalmic (eye) QPM 01/12/19 [History Last Taken Unknown] nitroglycerin 0.4 mg sublingual tablet 0.4 mg sublingual Q5-15M PRN Chest Pain 01/12/19 [History Last Taken Unknown] acetaminophen 500 mg tablet 500 mg PO Q8H PRN Pain 06/26/21 [History Last Taken Unknown] cholecalciferol (vitamin D3) 25 mcg (1,000 unit) tablet 25 mcg PO DAILY 06/26/21 [History Last Taken Unknown] clobetasol 0.05 % topical cream 1 applic topical BID 06/26/21 [History Last Taken Unknown] hydrochlorothiazide 12.5 mg tablet 12.5 mg PO DAILY 06/26/21 [History Last Taken Unknown] methotrexate sodium 2.5 mg tablet 12.5 mg PO FR 06/26/21 [History Last Taken Unknown] brimonidine 0.1 % eye drops 2 drp ophthalmic (eye) DAILY 07/11/21 [History Last Taken Unknown] lisinopril 20 mg tablet 20 mg PO BID 07/11/21 [History Last Taken 11/05/21] aspirin 81 mg tablet,delayed release (Adult Aspirin Regimen) 81 mg PO DAILY 10/08/21 [History Last Taken 11/20/22] calcipotriene 0.005 % topical cream 1 applic topical DAILY PRN PSORIASIS 10/08/21 [History Last Taken Unknown] docusate sodium 100 mg capsule (Colace) 100 mg PO BID PRN Constipation 10/08/21 [History Last Taken Unknown] gabapentin 300 mg capsule 600 mg PO BID 10/08/21 [History Last Taken Unknown] melatonin 3 mg capsule 6 mg PO HS PRN Insomnia 10/08/21 [History Last Taken Unknown] montelukast 10 mg tablet 10 mg PO QHS 10/08/21 [History Last Taken Unknown] multivitamin 1 tab PO DAILY 10/08/21 [History Last Taken Unknown] sertraline 50 mg tablet 50 mg PO DAILY 10/08/21 [History Last Taken Unknown] vitamins A,C,F-wdvm-nrhpzc 4,296 mcg-226 mg-90 mg capsule (PreserVision AREDS) 1 cap PO BID 12/09/21 [History Last Taken Unknown] clopidogrel 75 mg tablet (Plavix) 75 mg PO QDAY #30 tabs 11/07/22 [Rx Last Taken Unknown] isosorbide mononitrate 60 mg tablet,extended release 24 hr 60 mg PO BID #60 tabs 11/11/22 [Rx Last Taken Unknown] diphenhydramine HCl 25 mg tablet (Benadryl Allergy) 25 mg PO PRN PRN ALLERGIES 11/14/22 [History Last Taken Unknown] tiotropium 2.5 mcg-olodaterol 2.5 mcg/actuation mist for inhalation (Stiolto Respimat) 2 inh inhalation DAILY #4 grams 12/29/22 [Rx Last Taken Unknown] hydrocodone 7.5 mg-acetaminophen 325 mg tablet 1 tab PO DAILY Check with primary doctor 01/17/23 [History Last Taken Unknown] Allergy/AdvReac Type Severity Reaction Status Date / Time metoprolol tartrate Allergy Unknown Verified 01/17/23 13:53 [From Lopressor] shellfish derived Allergy Anaphylaxis Verified 01/17/23 13:53 Sulfa (Sulfonamide Allergy Rash Verified 01/17/23 13:53 Antibiotics) Family History Father Heart disease Myocardial infarction Surgical History History of cholecystectomy History of coronary artery bypass surgery (~08/10/00) History of intraocular lens implant History of left knee replacement History of total right knee replacement Hx of colonoscopy Hx of heart bypass surgery Social History Smoking Status: Unknown if ever smoked second hand exposure: Yes alcohol intake: never substance use type: does not use caffeine: Yes what type of physical activity do you participate in: none frequency: does not exercise ROS Constitutional Constitutional: Reports fatigue and weakness; Denies anorexia, change in weight, chills, fever(s) or night sweats Eyes Eyes: Denies blurry vision, change in eye color, change in vision, discharge from eye(s) or eye pain Cardiovascular Cardiovascular: Denies chest pain, claudication, dyspnea on exertion, edema, lightheadedness or palpitations Respiratory/Chest Respiratory/Chest: Denies cough, dyspnea, hemoptysis, productive cough, shortness of breath at rest or shortness of breath with exertion Gastrointestinal Gastrointestinal: Denies abdominal pain, coffee ground emesis, constipation, diarrhea, hematemesis, hematochezia, melena, nausea or vomiting Genitourinary Genitourinary: Denies dysuria, hematuria, nocturia, urinary frequency, urinary hesitancy, urinary incontinence or urinary urgency Musculoskeletal Musculoskeletal: Denies back pain, joint pain, joint stiffness, joint swelling, myalgias or neck pain Neurologic Neurologic: Reports disequilibrium; Denies abnormal gait, abnormal speech, confusion, dizziness, focal weakness, headache(s), loss of vision, numbness, other visual disturbances, paresthesias, syncope or tingling Psychiatric Psychiatric: Denies anxiety, cognitive impairment, depression, irritability, mood swings or suicidal ideation Endocrine Endocrinology: Denies change in body appearance, cold intolerance, excessive sweating, heat intolerance, polydipsia or polyuria Hematologic/Lymphatic Hematologic/Lymphatic: Denies none, anemia, easy bleeding, easy bruising or lymphadenopathy Allergic/Immunologic Allergic/Immunologic: Denies rhinitis, urticaria, eczemia or asthma Vital Signs Vital Signs Vital Signs: 01/17/23 13:53 01/17/23 13:56 01/17/23 14:02 Temperature 97.5 F L Temperature Source Oral Pulse Rate 93 Respiratory Rate 14 Respiratory Effort Normal Respiratory Pattern Blood Pressure 151/61 H Blood Pressure Mean 91 Pulse Ox 90 95 Oxygen Delivery Method Room Air Nasal Cannula Oxygen Flow Rate (L/min) 2 01/17/23 16:01 01/17/23 16:09 01/17/23 16:43 Temperature 97 F L Temperature Source Temporal Pulse Rate 71 80 75 Respiratory Rate 18 18 18 Respiratory Effort Respiratory Pattern Normal Blood Pressure 153/113 H 174/78 H Blood Pressure Mean 126 110 Pulse Ox 99 97 Oxygen Delivery Method Nasal Cannula Nasal Cannula Oxygen Flow Rate (L/min) 2 2 01/17/23 17:38 Temperature Temperature Source Pulse Rate Respiratory Rate Respiratory Effort Respiratory Pattern Blood Pressure Blood Pressure Mean Pulse Ox Oxygen Delivery Method Nasal Cannula Oxygen Flow Rate (L/min) 2 Weight Weight: 88.6 kg Body Mass Index (BMI) 33.5 Physical Exam Const alert, oriented x3, no apparent distress, average body habitus and healthy ap pearing General Appearance: cooperative, well kempt and well developed Orientation / Consciousness: awake, oriented to person, oriented to place and oriented to time HEENT normocephalic, head/scalp atraumatic and moist oral mucous membranes Eyes PERRL, EOMs intact bilaterally and conjunctivae normal Neck supple, no JVD, thyroid normal and no carotid bruits General: trachea midline Resp normal respiratory effort, no retractions and no use of accessory muscles Resp Narrative: Patient has inspiratory rales at the bases bilaterally Auscultation: rales bilateral base; Negative for rhonchi or wheezes Cardio regular rate, regular rhythm, S1 normal heart sound, S2 normal heart sound, no murmurs, no rub and no gallops GI normal to inspection, nondistended, normoactive bowel sounds, soft to palpation, non-tender and non-distended Extremity no clubbing, cyanosis or edema Skin no rashes or lesions noted General Skin Exam: no breakdown Neuro oriented x3, CN's II-XII intact bilaterally, moves all extremities, no focal motor deficits and no sensory deficits noted Sensorium / Orientation: awake, alert, oriented to person, oriented to place and oriented to time Speech: speech normal Psych affect normal Results Lab / Micro Data Result Diagrams: 01/17/23 14:57 01/17/23 14:57 Labs: Laboratory Results - last 24 hr 01/17/23 14:45: Urine Color Yellow, Urine Clarity Sl. Cloudy, Urine pH 8.0, Ur Specific [place] 1.015, Urine Protein 30 H, Urine Glucose (UA) Normal, Urine Ketones Negative, Urine Occult Blood 10 H, Urine Nitrite Negative, Urine Bilirubin Negative, Urine Urobilinogen Normal, Ur Leukocyte Esterase 500 H, Urine RBC 0 SEEN, Urine WBC 10-25 SEEN, Ur Squamous Epith Cells 0-5 SEEN, Urine Bacteria 0 SEEN, Urine Mucus 0 SEEN 01/17/23 14:57: WBC 7.4, RBC 3.42 L, Hgb 12.2, Hct 38.0, MCV 111.1 H, MCH 35.7 H , MCHC 32.1, RDW Std Deviation 58.4 H, RDW Coeff of Alexandra 14.3, Plt Count 164, MPV 11.3, Immature Gran % (Auto) 0.100, Neut % (Auto) 67.9, Lymph % (Auto) 20.1, [place] % (Auto) 10.2 H, Eos % (Auto) 1.2, Baso % (Auto) 0.5, Absolute Neuts (auto) 5.0, Absolute Lymphs (auto) 1.49, Nucleated RBC % 0 01/17/23 14:57: Sodium 141, Potassium 4.0, Chloride 105, Carbon Dioxide 28.0, Anion Gap 8, BUN 20 H, Creatinine 1.24 H, Estim Creat Clear Calc 30.73, Est GFR (MDRD) Af Amer 53 L, Est GFR (MDRD) Non-Af 44 L, BUN/Creatinine Ratio 16.1, Glucose 122 H, Calcium 10.5 H, Total Bilirubin 0.30, AST 40 H, ALT 26, Alkaline Phosphatase 87, Troponin I High Sens 6, Total Protein 7.5, Albumin 3.6, Globulin 3.9, Albumin/Globulin Ratio 0.9 01/17/23 14:57: Lactic Acid 1.8 Micro: Microbiology 01/17/23 14:58 Nasal Secretion SARS-CoV-2 & FLU Antigen (Rapid) - Final Radiology Impression Brain CT 01/17/23 14:00 IMPRESSION: No acute intracranial findings. Electronically Signed: José Wilde MD at 15:48 EDT , Chest X-Ray 01/17/23 14:00 IMPRESSION: No acute cardiopulmonary disease. Electronically Signed: José Wilde MD at 15:07 EDT , Cervical Spine CT 01/17/23 14:04 IMPRESSION: No acute cervical spine osseous injury. Cervical spondylosis changes. Electronically Signed: José Wilde MD at 15:33 EDT , Assessment & Plan Assessment/Plan (1) Hypoxia: PLAN: Plan 1. Generalized debility secondary to acute cystitis and exacerbation of COPD- patient was placed in observation status on MedSurg 3, she will be seen by PT and OT, pulse ox will be monitored, patient was placed on IV Solu-Medrol, she will receive aerosol treatments. I briefly talked with the patient about going to a senior care if necessary and also with the patient's family members, patient stated that she would be okay with going to an extended care facility if it was deemed necessary for rehab services. #2 acute cystitis-patient will be maintained on IV Rocephin #3 exacerbation of COPD-this examiner did not hear any wheezing today on examination, according to the emergency room physician, there was wheezing in the emergency room when the patient was examined. Patient will be maintained on aerosol treatments and be given IV Solu-Medrol, she will be reevaluated tomorrow. #4 coronary artery disease-this appears stable at this time, patient will remain on her current medications #5 essential hypertension-patient is on lisinopril and hydrochlorothiazide #6 chronic kidney disease stage IIIb-labs will be monitored, complicates care, medical course, recovery, and prognosis #7 chronic pain secondary to rheumatoid arthritis-patient uses [place] in the evening for pain control. I will write for this medication for the patient as needed Total clinical time spent by myself addressing patient's medical problems, reviewing all of her data, and collaborating with patient's care team: 55 minutes Charges/Coding Visit Charges Inpatient E&M: 29816 Init Hosp L2
[2023-01-17] MEDS: Latanoprost 0.005% 1 Bottle 1 DRP OPHTHALMIC (21:31)
[2023-01-17] MEDS: Gabapentin 400 MG Capsule PO (21:36)
[2023-01-17] MEDS: Heparin Injection (Vial) 5,000 UNIT/ML VIAL 5000 UNIT SC (21:36)
[2023-01-17] MEDS: Isosorbide Mononitrate 60 MG Tablet PO (21:36)
[2023-01-17] MEDS: HYDROcodone Bitartrate/Apap 5/325 Tablet PO (21:36)
[2023-01-17] MEDS: Atorvastatin Calcium 10 MG Tablet PO (21:36)
[2023-01-17] MEDS: Montelukast 10 MG Tablet PO (21:36)
[2023-01-17] MEDS: Lisinopril 20 MG Tablet PO (21:37)
[2023-01-17] MEDS: Doxepin Hcl 25 MG Capsule PO (21:40)
[2023-01-18] VITALS (9 sets, daily range): BP systolic 132–144; BP diastolic 50–64; PULSE 55–79; RESP 18; TEMP 36.7–36.8; O2SAT 86–95
[2023-01-18] MEDS: 0.9% Normal Saline 1,000 ML 75 ML IV (06:46)
[2023-01-18 07:05] LABS: Anion Gap 7 (5-15); BUN 23 mg/dL (7-18); BUN/Creat Ratio 21.1 RATIO (10-20); Calcium,Total 9.5 mg/dL (8.5-10.1); Chloride 109 mmol/L (98-107); Creatinine, Serum 1.09 mg/dL (0.55-1.02); EST Glomerular Filtration Rate 51 mL/min (>60); Est Glom Filt Rate - Afr Amer 62 mL/min (>60); Estimated Creatinine Clearance 34.95 ml/min; Glucose 148 mg/dL (74-106); Potassium 4.1 mmol/L (3.5-5.1); Sodium Level 141 mmol/L (136-145)
[2023-01-18] MEDS: Ipratropium/Albuterol Sulfate 3 ML AMPUL.NEB INHALATION ×2 (07:43→13:30)
[2023-01-18] MEDS: Heparin Injection (Vial) 5,000 UNIT/ML VIAL 5000 UNIT SC (08:20)
[2023-01-18] MEDS: Clopidogrel Bisulfate 75 MG Tablet PO (08:20)
[2023-01-18] MEDS: Aspirin E.C. 81 MG Tablet PO (08:20)
[2023-01-18] MEDS: BRIMONIDINE 0.2% 5ML BOTTLE 1 DRP EACH EYE (08:20)
[2023-01-18] MEDS: Gabapentin 400 MG Capsule PO (08:20)
[2023-01-18] MEDS: hydroCHLOROthiazide 12.5mg 12.5 MG PO (08:20)
[2023-01-18] MEDS: Isosorbide Mononitrate 60 MG Tablet PO (08:20)
[2023-01-18] MEDS: Sertraline 50 MG Tablet PO (08:21)
[2023-01-18] MEDS: Lisinopril 20 MG Tablet PO (08:21)
[2023-01-18] MEDS: Ceftriaxone 1 GM/50 ML BAG IV (09:45)
[2023-01-18] MEDS: Nystatin Powder 15gm Bottle 1 APPLIC TOPICAL (11:22)
--- NOTE | 2023-01-18 12:02 | PN.HOSP_ITS ---
Reason for Visit Reason for Visit: Diagnoses Hypoxemia (01/17/23) Subjective Subjective Patient was seen and examined today, she is still requiring supplemental oxygen. Patient will be working with PT and OT today, creatinine and BUN were improved today. Objective Data Objective Data Vital Signs: Vital Signs Temp Pulse Resp BP Pulse Ox O2 Del Method O2 Flow Rate 98.1 F 75 18 144/50 H 93 Nasal Cannula 2 01/18/23 08:40 01/18/23 08:40 01/18/23 08:40 01/18/23 08:40 01/18/23 08:55 01/18/23 08:57 01/18/23 08:57 Oxygen Flow Rate (L/min) 2 Oxygen Delivery Method Nasal Cannula Weight: 88.6 kg Body Mass Index (BMI) 33.5 Intake & Output: Intake and Output for Last 24 Hours 01/16/23 01/17/23 01/18/23 23:59 23:59 23:59 Intake Total 555 / 555 1230.00 / 1230.00 Balance 555 / 555 1230.00 / 1230.00 Lab / Micro Data Result Diagrams: 01/17/23 14:57 01/18/23 06:00 Labs: Laboratory Results - last 24 hr 01/17/23 14:45: Urine Color Yellow, Urine Clarity Sl. Cloudy, Urine pH 8.0, Ur Specific [place] 1.015, Urine Protein 30 H, Urine Glucose (UA) Normal, Urine Ketones Negative, Urine Occult Blood 10 H, Urine Nitrite Negative, Urine Bilirubin Negative, Urine Urobilinogen Normal, Ur Leukocyte Esterase 500 H, Urine RBC 0 SEEN, Urine WBC 10-25 SEEN, Ur Squamous Epith Cells 0-5 SEEN, Urine Bacteria 0 SEEN, Urine Mucus 0 SEEN 01/17/23 14:57: WBC 7.4, RBC 3.42 L, Hgb 12.2, Hct 38.0, MCV 111.1 H, MCH 35.7 H , MCHC 32.1, RDW Std Deviation 58.4 H, RDW Coeff of [place]andra 14.3, Plt Count 164, MPV 11.3, Immature Gran % (Auto) 0.100, Neut % (Auto) 67.9, Lymph % (Auto) 20.1, [place] % (Auto) 10.2 H, Eos % (Auto) 1.2, Baso % (Auto) 0.5, Absolute Neuts (auto) 5.0, Absolute Lymphs (auto) 1.49, Nucleated RBC % 0 01/17/23 14:57: Sodium 141, Potassium 4.0, Chloride 105, Carbon Dioxide 28.0, Anion Gap 8, BUN 20 H, Creatinine 1.24 H, Estim Creat Clear Calc 30.73, Est GFR (MDRD) Af Amer 53 L, Est GFR (MDRD) Non-Af 44 L, BUN/Creatinine Ratio 16.1, Glucose 122 H, Calcium 10.5 H, Total Bilirubin 0.30, AST 40 H, ALT 26, Alkaline Phosphatase 87, Troponin I High Sens 6, Total Protein 7.5, Albumin 3.6, Globulin 3.9, Albumin/Globulin Ratio 0.9 01/17/23 14:57: Lactic Acid 1.8 01/18/23 06:00: Sodium 141, Potassium 4.1, Chloride 109 H, Carbon Dioxide 25.0, Anion Gap 7, BUN 23 H, Creatinine 1.09 H, Estim Creat Clear Calc 34.95, Est GFR (MDRD) Af Amer 62, Est GFR (MDRD) Non-Af 51 L, BUN/Creatinine Ratio 21.1 H, Glucose 148 H, Calcium 9.5 Micro: Microbiology 01/17/23 14:57 Blood Culture (Wb) - Left Hand Bacteria Detection (PCR) - Final Strep not Strep pneumo 01/17/23 14:57 Blood Culture (Wb) - Left Hand Blood Culture - Preliminary 01/17/23 14:58 Nasal Secretion SARS-CoV-2 & FLU Antigen (Rapid) - Final Radiography Diagnostic Testing: Radiology Impression Brain CT 01/17/23 14:00 IMPRESSION: No acute intracranial findings. Electronically Signed: José Wilde MD at 15:48 EDT , Chest X-Ray 01/17/23 14:00 IMPRESSION: No acute cardiopulmonary disease. Electronically Signed: José Wilde MD at 15:07 EDT , Cervical Spine CT 01/17/23 14:04 IMPRESSION: No acute cervical spine osseous injury. Cervical spondylosis changes. Electronically Signed: José Wilde MD at 15:33 EDT , Physical Exam Narrative alert, oriented x3, no apparent distress, average body habitus and healthy appearing General Appearance: cooperative, well kempt and well developed Orientation / Consciousness: awake, oriented to person, oriented to place and oriented to time HEENT normocephalic, head/scalp atraumatic and moist oral mucous membranes Eyes PERRL, EOMs intact bilaterally and conjunctivae normal Neck supple, no JVD, thyroid normal and no carotid bruits General: trachea midline Resp normal respiratory effort, no retractions and no use of accessory muscles Resp Narrative: Patient has inspiratory rales at the bases bilaterally Auscultation: rales bilateral base; Negative for rhonchi or wheezes Cardio regular rate, regular rhythm, S1 normal heart sound, S2 normal heart sound, no murmurs, no rub and no gallops GI normal to inspection, nondistended, normoactive bowel sounds, soft to palpation, non-tender and non-distended Extremity no clubbing, cyanosis or edema Skin no rashes or lesions noted General Skin Exam: no breakdown Neuro oriented x3, CN's II-XII intact bilaterally, moves all extremities, no focal motor deficits and no sensory deficits noted Sensorium / Orientation: awake, alert, oriented to person, oriented to place and oriented to time Speech: speech normal Psych affect normal Assessment & Plan Assessment/Plan (1) COPD exacerbation: (2) Hypoxia: PLAN: Plan 1. Generalized debility secondary to acute cystitis and exacerbation of COPD- continue as an treatment at this time including aerosol treatments, IV Solu- Medrol, and antibiotics. PT and OT will work with the patient #2 acute cystitis-patient will be maintained on IV Rocephin #3 exacerbation of COPD-continue present treatment #4 coronary artery disease-this appears stable at this time, patient will remain on her current medications #5 essential hypertension-patient is on lisinopril and hydrochlorothiazide #6 chronic kidney disease stage IIIb-labs will be monitored, complicates care, medical course, recovery, and prognosis #7 chronic pain secondary to rheumatoid arthritis-patient uses [place] in the evening for pain control. Total clinical time spent by myself addressing patient's medical problems, reviewing all of her data, and collaborating with patient's care team: 35 minutes Charges/Coding Visit Charges Inpatient E&M: 10940 Subs Hosp L2
[2023-01-18] MEDS: 0.9% Saline Lock 10 ML Syringe IV (14:02)
--- NOTE | 2023-01-18 14:20 | DCINST_ITS ---
Discharge Instructions Diet Discharge Diet: No restrictions Activity Discharge Activity: Return to Normal Activity Weight Bearing Status: Full weight bearing (with walker) Follow Up Care Test Results: Test results from this visit will be discussed in further detail at your follow- up appointment, if applicable. Discharge Plan Admission Admit Date/Time: 01/17/23 16:28 Primary Reason for Your Visit: debility, COPD exacerbation Attending Provider: Art Cordero Primary Care Provider: Steffany Rose Discharge Orders/Prescriptions Prescriptions: New doxepin 25 mg Capsule 25 mg PO QHS Qty: 30 0RF gabapentin 400 mg Capsule 400 mg PO BID Qty: 60 0RF nystatin [Nyamyc] 100,000 unit/gram Powder 1 applic topical BID Qty: 1 0RF Protocol: *Topical Application Instructions APPLICATION INSTRUCTIONS: under breasts prednisone 10 mg tablet 10 mg PO BID Qty: 14 0RF cephalexin 500 mg capsule 500 mg PO BID Qty: 14 0RF Rx Instructions: start on 01/19/23 Continued latanoprost 0.005 % drops 1 drp OPHTHALMIC QPM nitroglycerin 0.4 mg tablet, sublingual 0.4 mg SUBLINGUAL Q5-15M PRN (Reason: Chest Pain) docusate sodium [Colace] 100 mg capsule 100 mg PO BID PRN (Reason: Constipation) lisinopril 20 mg tablet 20 mg PO BID brimonidine 0.1 % drops 2 drp ophthalmic (eye) DAILY acetaminophen 500 mg tablet 500 mg PO Q8H PRN (Reason: Pain) cholecalciferol (vitamin D3) 25 mcg (1,000 unit) tablet 25 mcg PO DAILY hydrochlorothiazide 12.5 mg tablet 12.5 mg PO DAILY clobetasol 0.05 % cream 1 applic topical BID aspirin [Adult Aspirin Regimen] 81 mg tablet,delayed release (DR/EC) 81 mg PO DAILY multivitamin Tablet 1 tab PO DAILY sertraline 50 mg tablet 50 mg PO DAILY simvastatin 20 MG tablet 20 mg PO QHS folic acid 1 MG tablet 2 mg PO DAILY albuterol sulfate 1 INHALER inhaler 1 - 2 puff inhalation Q4H PRN PRN (Reason: sob) allopurinol 100 mg tablet 200 mg PO DAILY hydrocodone-acetaminophen 7.5-325 mg Tablet 1 tab PO DAILY PreserVision AREDS [id number] capsule 1 cap PO BID clopidogrel [Plavix] 75 mg tablet 75 mg PO QDAY Qty: 30 11RF isosorbide mononitrate 60 mg tablet extended release 24 hr 60 mg PO BID Qty: 60 12RF Stiolto Respimat 2.5-2.5 mcg/actuation mist 2 inh inhalation DAILY Qty: 4 2RF Discontinued calcipotriene 0.005 % cream 1 applic topical DAILY PRN (Reason: PSORIASIS) Rx Instructions: rub in gently and completely melatonin 3 mg capsule 6 mg PO HS PRN (Reason: Insomnia) montelukast 10 mg tablet 10 mg PO QHS doxepin 50 MG capsule 50 mg PO QHS leucovorin calcium 5 MG tablet 5 mg PO QWEEK Label Comments: once a week with methotrexate methotrexate sodium 2.5 mg tablet 12.5 mg PO FR gabapentin 300 mg capsule 600 mg PO BID diphenhydramine HCl [Benadryl Allergy] 25 mg tablet 25 mg PO PRN PRN (Reason: ALLERGIES) Rx Instructions: 25 mg PO; 2 tabs bedtime 11/04, 2 tabs morning 11/05 Referrals / Follow Up: Steffany Rose MD [Primary Care Provider] - See Referral Note (as scheduled) Disposition Disposition (needs filled in before D/C Order can be placed): Home, Self Care
--- NOTE | 2023-01-18 14:48 | PCM.DC.SUM ---
Providers Date of Admission: 01/17/23 Date of Discharge: 01/18/23 Primary Care Physician: Dr. Steffany Rose MD Reason For Visit: CYSTITIS, EXAC OF COPD Diagnosis Discharge Diagnosis (1) COPD exacerbation: Status: Chronic Code(s): J44.1 - Chronic obstructive pulmonary disease with (acute) exacerbation (2) Hypoxia: Status: Acute Code(s): R09.02 - Hypoxemia Plan 1. Generalized debility secondary to acute cystitis and exacerbation of COPD-continue as an treatment at this time including aerosol treatments, IV Solu-Medrol, and antibiotics. PT and OT will work with the patient #2 acute cystitis due to E. coli-patient will be maintained on IV Rocephin #3 exacerbation of COPD-continue present treatment #4 coronary artery disease-this appears stable at this time, patient will remain on her current medications #5 essential hypertension-patient is on lisinopril and hydrochlorothiazide #6 chronic kidney disease stage IIIb-labs will be monitored, complicates care, medical course, recovery, and prognosis #7 chronic pain secondary to rheumatoid arthritis-patient uses [place] in the evening for pain control. #8 positive blood culture (bacteremia) for presumed streptococci-etiology unclear at the time of discharge Total clinical time spent by myself addressing patient's medical problems, reviewing all of her data, and collaborating with patient's care team: 35 minutes Medications at Discharge Home Medications albuterol sulfate 90 mcg/actuation aerosol inhaler 1 - 2 puff inhalation Q4H PRN PRN sob 10/10/15 folic acid 1 mg tablet 2 mg PO DAILY 10/10/15 simvastatin 20 mg tablet 20 mg PO QHS 10/10/15 allopurinol 100 mg tablet 200 mg PO DAILY 01/12/19 latanoprost 0.005 % eye drops 1 drp ophthalmic (eye) QPM 01/12/19 nitroglycerin 0.4 mg sublingual tablet 0.4 mg sublingual Q5-15M PRN Chest Pain 01/12/19 acetaminophen 500 mg tablet 500 mg PO Q8H PRN Pain 06/26/21 cholecalciferol (vitamin D3) 25 mcg (1,000 unit) tablet 25 mcg PO DAILY 06/26/21 clobetasol 0.05 % topical cream 1 applic topical BID 06/26/21 hydrochlorothiazide 12.5 mg tablet 12.5 mg PO DAILY 06/26/21 brimonidine 0.1 % eye drops 2 drp ophthalmic (eye) DAILY 07/11/21 lisinopril 20 mg tablet 20 mg PO BID 07/11/21 aspirin 81 mg tablet,delayed release (Adult Aspirin Regimen) 81 mg PO DAILY 10/08/21 docusate sodium 100 mg capsule (Colace) 100 mg PO BID PRN Constipation 10/08/21 multivitamin 1 tab PO DAILY 10/08/21 sertraline 50 mg tablet 50 mg PO DAILY 10/08/21 vitamins A,C,G-ffek-hbfkid 4,296 mcg-226 mg-90 mg capsule (PreserVision AREDS) 1 cap PO BID 12/09/21 clopidogrel 75 mg tablet (Plavix) 75 mg PO QDAY #30 tabs 11/07/22 isosorbide mononitrate 60 mg tablet,extended release 24 hr 60 mg PO BID #60 tabs 11/11/22 tiotropium 2.5 mcg-olodaterol 2.5 mcg/actuation mist for inhalation (Stiolto Respimat) 2 inh inhalation DAILY #4 grams 12/29/22 hydrocodone 7.5 mg-acetaminophen 325 mg tablet 1 tab PO DAILY Check with primary doctor 01/17/23 cephalexin 500 mg capsule 500 mg PO BID #14 caps 01/18/23 doxepin 25 mg capsule 25 mg PO QHS #30 caps 01/18/23 gabapentin 400 mg capsule 400 mg PO BID #60 caps 01/18/23 nystatin 100,000 unit/gram topical powder (Nyamyc) 1 applic topical BID #1 g 01/18/23 prednisone 10 mg tablet 10 mg PO BID #14 tabs 01/18/23 Hospital Course Operations None Procedures None Summary of Care Provided Minutes Spent on Discharge: 32 Hospital Course: This 82-year-old white female was seen in the emergency room at [facility] after being brought in from home, she got weak at home and laid down in her front yard on the grass, family members could not get her up and brought her in by ambulance. Patient was going to be brought into an urgent care or the emergency room to check and see if she had a urinary tract infection. Work-up in the emergency room included labs which showed a normal white blood cell count, chemistry profile showed an elevated creatinine at 1.24 and an elevated BUN at 20. Patient's glucose was 122, urinalysis showed 10-25 WBCs but 0 bacteria and 0 red cells. Leukocyte esterase was positive at 500. Patient had a chest x-ray performed which showed no evidence of pneumonia. On examination in the emergency room, the emergency room physician detected scattered wheezes throughout both lungs, patient required 2 L of oxygen to maintain her pulse ox above 90%. Patient was placed in the observation status on MedSurg 3 for exacerbation of COPD, hypoxia, and acute cystitis, she was seen by PT and OT, her medications were adjusted-I felt that medications which could cause fatigue or somnolence should be reduced, I reduced her gabapentin and Sinequan. Patient was given IV Rocephin and placed on IV Solu-Medrol and aerosol treatments. Patient was able to be weaned off oxygen and did well with minimal assist walking by physical therapy. On 01/18/2023, patient was seen and examined: On examination she appeared in good health and spirits, she does not appear to be in any distress. Vital signs as documented. Skin warm and dry and without overt rashes. Neck without JVD, thyroid appears normal, trachea is midline, neck is supple. Lungs clear, normal air movement was noted. Heart exam notable for regular rhythm, normal sounds and absence of murmurs, rubs or gallops. Abdomen unremarkable and without evidence of organomegaly, masses, or abdominal aortic enlargement, bowel sounds are present in all 4 quadrants, no abdominal tenderness was noted. Extremities nonedematous, no cyanosis was noted, no clubbing was noted. Neuro: Cranial nerves II through XII are grossly intact, no focal motor deficits were noted, sensation to light touch and pinprick is intact, motor exam 5/5 throughout. Psych: Patient is alert and oriented x3, she does not appear anxious or depressed, she does not appear agitated. Patient was felt to be stable for discharge home on 01/18/2023, at the time of discharge she did not require any oxygen, daughter requested PT and OT outpatient eval which I gave her a prescription for and requested a wheeled walker-patient had a rollator at home instead of a wheeled walker. I wrote the patient's daughter a prescription for the patient to obtain a wheeled walker. There was some concern that the patient may have undiagnosed dementia according to the daughter, she had been evaluated years before and it was felt she did not have any dementia, I urged the daughter to go with the patient to her doctor's office visit and see if they could screen her for dementia. Final note: Patient's blood culture was positive for a PCR indicating Streptococcus, there was growth of cocci in chains, patient was afebrile during her hospital stay however and her CBC was unremarkable. I elected to treat her with a week of antibiotic coverage that would also cover streptococci, I urged her to follow-up with her PCP regarding a final blood culture. Patient's urine culture grew out small numbers of E. coli. Sensitivity was not final at the time patient was discharged home Weight / BMI Weight Weight: 88.6 kg Body Mass Index (BMI) 33.5 ABG / Lab / Microbiology Data Result Diagrams: 01/17/23 14:57 01/18/23 06:00 Laboratory: Laboratory Results - last 24 hr 01/17/23 14:45: Urine Color Yellow, Urine Clarity Sl. Cloudy, Urine pH 8.0, Ur Specific [place] 1.015, Urine Protein 30 H, Urine Glucose (UA) Normal, Urine Ketones Negative, Urine Occult Blood 10 H, Urine Nitrite Negative, Urine Bilirubin Negative, Urine Urobilinogen Normal, Ur Leukocyte Esterase 500 H, Urine RBC 0 SEEN, Urine WBC 10-25 SEEN, Ur Squamous Epith Cells 0-5 SEEN, Urine Bacteria 0 SEEN, Urine Mucus 0 SEEN 01/17/23 14:57: WBC 7.4, RBC 3.42 L, Hgb 12.2, Hct 38.0, MCV 111.1 H, MCH 35.7 H, MCHC 32.1, RDW Std Deviation 58.4 H, RDW Coeff of Alexandra 14.3, Plt Count 164, MPV 11.3, Immature Gran % (Auto) 0.100, Neut % (Auto) 67.9, Lymph % (Auto) 20.1, [place] % (Auto) 10.2 H, Eos % (Auto) 1.2, Baso % (Auto) 0.5, Absolute Neuts (auto) 5.0, Absolute Lymphs (auto) 1.49, Nucleated RBC % 0 01/17/23 14:57: Sodium 141, Potassium 4.0, Chloride 105, Carbon Dioxide 28.0, Anion Gap 8, BUN 20 H, Creatinine 1.24 H, Estim Creat Clear Calc 30.73, Est GFR (MDRD) Af Amer 53 L, Est GFR (MDRD) Non-Af 44 L, BUN/Creatinine Ratio 16.1, Glucose 122 H, Calcium 10.5 H, Total Bilirubin 0.30, AST 40 H, ALT 26, Alkaline Phosphatase 87, Troponin I High Sens 6, Total Protein 7.5, Albumin 3.6, Globulin 3.9, Albumin/Globulin Ratio 0.9 01/17/23 14:57: Lactic Acid 1.8 01/18/23 06:00: Sodium 141, Potassium 4.1, Chloride 109 H, Carbon Dioxide 25.0, Anion Gap 7, BUN 23 H, Creatinine 1.09 H, Estim Creat Clear Calc 34.95, Est GFR (MDRD) Af Amer 62, Est GFR (MDRD) Non-Af 51 L, BUN/Creatinine Ratio 21.1 H, Glucose 148 H, Calcium 9.5 Microbiology: Microbiology 01/17/23 14:45 Urine, Clean Catch Urine Culture - Preliminary Presumptive E. coli 01/17/23 14:57 Blood Culture (Wb) - Left Hand Bacteria Detection (PCR) - Final Strep not Strep pneumo 01/17/23 14:57 Blood Culture (Wb) - Left Hand Blood Culture - Preliminary 01/17/23 14:58 Nasal Secretion SARS-CoV-2 & FLU Antigen (Rapid) - Final Radiography Diagnostic Testing: Radiology Impression Brain CT 01/17/23 14:00 IMPRESSION: No acute intracranial findings. Electronically Signed: José Wilde MD at 15:48 EDT , Chest X-Ray 01/17/23 14:00 IMPRESSION: No acute cardiopulmonary disease. Electronically Signed: José Wilde MD at 15:07 EDT , Cervical Spine CT 01/17/23 14:04 IMPRESSION: No acute cervical spine osseous injury. Cervical spondylosis changes. Electronically Signed: José Wilde MD at 15:33 EDT , D/C Instructions Discharge Diet: No restrictions Weight Bearing Status: Full weight bearing (with walker) Meaningful Use Info Meaningful Use Diagnoses (Choose all that apply): None applicable Discharge Plan Admission Admit Date/Time: 01/17/23 16:28 Primary Reason for Your Visit: debility, COPD exacerbation Attending Provider: Art Cordero Primary Care Provider: Steffany Rose Discharge Orders/Prescriptions Prescriptions: New doxepin 25 mg Capsule 25 mg PO QHS Qty: 30 0RF gabapentin 400 mg Capsule 400 mg PO BID Qty: 60 0RF nystatin [Nyamyc] 100,000 unit/gram Powder 1 applic topical BID Qty: 1 0RF Protocol: *Topical Application Instructions APPLICATION INSTRUCTIONS: under breasts prednisone 10 mg tablet 10 mg PO BID Qty: 14 0RF cephalexin 500 mg capsule 500 mg PO BID Qty: 14 0RF Rx Instructions: start on 01/19/23 Continued latanoprost 0.005 % drops 1 drp OPHTHALMIC QPM nitroglycerin 0.4 mg tablet, sublingual 0.4 mg SUBLINGUAL Q5-15M PRN (Reason: Chest Pain) docusate sodium [Colace] 100 mg capsule 100 mg PO BID PRN (Reason: Constipation) lisinopril 20 mg tablet 20 mg PO BID brimonidine 0.1 % drops 2 drp ophthalmic (eye) DAILY acetaminophen 500 mg tablet 500 mg PO Q8H PRN (Reason: Pain) cholecalciferol (vitamin D3) 25 mcg (1,000 unit) tablet 25 mcg PO DAILY hydrochlorothiazide 12.5 mg tablet 12.5 mg PO DAILY clobetasol 0.05 % cream 1 applic topical BID aspirin [Adult Aspirin Regimen] 81 mg tablet,delayed release (DR/EC) 81 mg PO DAILY multivitamin Tablet 1 tab PO DAILY sertraline 50 mg tablet 50 mg PO DAILY simvastatin 20 MG tablet 20 mg PO QHS folic acid 1 MG tablet 2 mg PO DAILY albuterol sulfate 1 INHALER inhaler 1 - 2 puff inhalation Q4H PRN PRN (Reason: sob) allopurinol 100 mg tablet 200 mg PO DAILY hydrocodone-acetaminophen 7.5-325 mg Tablet 1 tab PO DAILY PreserVision AREDS [id number] capsule 1 cap PO BID clopidogrel [Plavix] 75 mg tablet 75 mg PO QDAY Qty: 30 11RF isosorbide mononitrate 60 mg tablet extended release 24 hr 60 mg PO BID Qty: 60 12RF Stiolto Respimat 2.5-2.5 mcg/actuation mist 2 inh inhalation DAILY Qty: 4 2RF Discontinued calcipotriene 0.005 % cream 1 applic topical DAILY PRN (Reason: PSORIASIS) Rx Instructions: rub in gently and completely melatonin 3 mg capsule 6 mg PO HS PRN (Reason: Insomnia) montelukast 10 mg tablet 10 mg PO QHS doxepin 50 MG capsule 50 mg PO QHS leucovorin calcium 5 MG tablet 5 mg PO QWEEK Label Comments: once a week with methotrexate methotrexate sodium 2.5 mg tablet 12.5 mg PO FR gabapentin 300 mg capsule 600 mg PO BID diphenhydramine HCl [Benadryl Allergy] 25 mg tablet 25 mg PO PRN PRN (Reason: ALLERGIES) Rx Instructions: 25 mg PO; 2 tabs bedtime 11/04, 2 tabs morning 11/05 Referrals / Follow Up: Steffany Rose MD [Primary Care Provider] - See Referral Note (as scheduled) Disposition Disposition (needs filled in before D/C Order can be placed): Home, Self Care Charges/Coding Visit Charges Inpatient E&M: 43116 Disch Hosp >30min
== END 2023-01-18 15:49 | disposition home or self-care (01) ==
LOC: ED 14:27 → MS3 16:46
PROVIDERS: Admitting Provider Internal Medicine; Emergency Provider Emergency Medicine; PCP Internal Medicine; Visit Provider Internal Medicine
DX: J44.1 Chronic obstructive pulmonary disease with (acute) exacerbation (principal); N18.30 Chronic kidney disease, stage 3 unspecified; I12.9 Hypertensive chronic kidney disease with stage 1 through stage 4 chronic kidney disease, or unspecified chronic kidney disease; B96.20 Unspecified Escherichia coli [E. coli] as the cause of diseases classified elsewhere; Z79.02 Long term (current) use of antithrombotics/antiplatelets; N30.00 Acute cystitis without hematuria; E78.00 Pure hypercholesterolemia, unspecified; I25.10 Atherosclerotic heart disease of native coronary artery without angina pectoris; F34.1 Dysthymic disorder; Z79.899 Other long term (current) drug therapy; Z79.82 Long term (current) use of aspirin; M10.9 Gout, unspecified; I44.1 Atrioventricular block, second degree; Z95.1 Presence of aortocoronary bypass graft; G89.29 Other chronic pain
CPT/HCPCS: 36415; 70450; 71045; 72125; 80048; 80053; 81001; 83605; 84484; 85025; 87040; 87077; 87086; 87088; 87149; 87186; 87428; 93005; 94640; 96361; 96365; 96366; 96372; 96375; 96376; 97162; 97166; 99221; 99252; 99285; J7030; A4216; G0378; G0463; J3490

== ENCOUNTER 2023-01-22 09:40 | Inpatient (IN) | payer MEDICARE, SELFPAY ==
[2023-01-22] VITALS (18 sets, daily range): BP systolic 131–165; BP diastolic 68–97; PULSE 34–81; RESP 10–27; TEMP 36.2–36.8; O2SAT 89–97; BMI 32.8; BMI 32.2
[2023-01-22 10:13] LABS: Absolute Lymphocyte Count 2.53 X10^3/uL (0.83-4.51); Absolute Neutrophil Count 5.8 X10^3/uL (2.0-7.7); Basophil# 0.03 X10^3/uL; Basophil% 0.3 % (0-1); Eosinophil# 0.05 X10^3/uL; Eosinophils% 0.5 % (0-5); Hematocrit 43.3 % (37-47); Hemoglobin 13.8 g/dL (12.0-15.0); Lymphocyte # 2.53 X10^3/ul (0.83-4.51); Lymphocyte % 26.7 % (19-41); Mean Corp Hgb Conc 31.9 g/dL (32-36); Mean Corpuscular Hgb 35.2 pg (27.0-32.0); Mean Corpuscular Volume 110.5 fL (81-99); Mean Platelet Vol. 11.9 fl (6.2-12.0); Monocyte# 0.97 X10^3/uL; Monocyte% 10.2 % (0-10); NRBC Flagged by Analyzer 0 % (0-5); Neutrophil # 5.81 X10^3/uL (2.7-7.7); Neutrophil % 61.4 % (47-70); Platelet Count 165 K/mm3 (150-450); RBC Distribution Width CV 14.5 % (11.6-14.6); Red Blood Count 3.92 M/mm3 (4.2-5.4); White Blood Count 9.5 K/mm3 (4.4-11.0)
[2023-01-22 10:27] LABS: Anion Gap 7 (5-15); BUN 26 mg/dL (7-18); BUN/Creat Ratio 18.4 RATIO (10-20); Chloride 107 mmol/L (98-107); Creatinine, Serum 1.41 mg/dL (0.55-1.02); EST Glomerular Filtration Rate 38 mL/min (>60); Est Glom Filt Rate - Afr Amer 46 mL/min (>60); Estimated Creatinine Clearance 27.02 ml/min; Glucose 116 mg/dL (74-106); Potassium 3.8 mmol/L (3.5-5.1); Sodium Level 140 mmol/L (136-145)
--- NOTE | 2023-01-22 11:14 | RAD_ITS ---
STUDY: X-RAY CHEST REASON FOR EXAM: Female, 82 years old. Shortness of breath and weakness. TECHNIQUE: Single AP portable view of the chest. COMPARISON: Comparison is made with prior study dated January 17, 2023. FINDINGS: EKG electrodes are seen. The lungs are clear and expanded. There is no demonstrated pleural abnormality. Sternal cerclage wires and vascular clips are present from a prior sternotomy and coronary artery bypass graft procedure (CABG). Normal mediastinum and iliana. Normal visualized pulmonary arteries. There is atherosclerotic calcification of the aortic arch with tortuosity. There are diffuse degenerative changes of the visualized thoracic spine. There is degenerative osteoarthritis of the bilateral shoulders. There is no demonstrated abnormality of the visualized soft tissue structures of the upper abdomen. RAD/Chest 1 View (Portable) IMPRESSION: No acute abnormality is seen. Electronically Signed: Per Lama MD at 11:57 EDT ,
[2023-01-22 11:23] LABS: Bacteria 0 SEEN /hpf (None Seen); Mucous, Urine 0 SEEN /hpf (<or=2+); Red Blood Cells-Urine 0 SEEN /hpf (0-5)
[2023-01-22 11:24] LABS: BNP,B-Type NATRIURETIC PEPTIDE 377.5 pg/mL (0-100); Troponin-I HS 20 pg/mL (3.0-54.0)
[2023-01-22 11:25] LABS: Color, Urine Yellow (Yellow); Glucose, Dipstick Normal (Normal); Ketone-Dipstick Negative (Negative); Leukocyte Esterase-Dipstick 25 /ul (Negative); Nitrite-Dipstick Negative (Negative); Occult Blood-Urine Negative /ul (Negative); Protein-Dipstick 30 mg/dl (Negative); Urine Bilirubin Dipstick Negative (Negative); Urine Clarity Sl. Cloudy (Clear); Urine Urobilinogen Normal (Normal); Urine pH 6.5 (5.0 - 8.0)
[2023-01-22 11:33] LABS: Squamous Epithelial Cells - UA 0-5 SEEN /hpf (5-10); White Blood Cells 0-5 SEEN /hpf (0-5)
[2023-01-22 12:08] LABS: D-Dimer Quantitative (DVT/PE) 1.13 FEU/ug/m (0.27-0.49)
--- NOTE | 2023-01-22 12:08 | CT_ITS ---
STUDY: CTA CHEST REASON FOR EXAM: Female, 82 years old. Weakness and dyspnea. RADIATION DOSAGE (If Supplied By Facility): CTDIvol = ( 15.75 ) mGy, DLP = ( 423.86 ) mGycm TECHNIQUE: The examination was performed with the intravenous administration of IV 100mL [id number]-[id number]. Post-processing of the angiographic images was performed, with multiplanar reformation and 3D reconstruction. Individualized dose optimization techniques were used for this CT. COMPARISON: Comparison is made with prior chest radiograph done earlier today. FINDINGS: Normal enhancement of the main pulmonary artery and right and left pulmonary arteries. Normal enhancement of the bilateral peripheral pulmonary arteries. There is no demonstrated pulmonary embolism. There is atherosclerotic calcification of the aortic arch with tortuosity. There is no demonstrated aortic dissection. Cardiomegaly. There are calcifications of the coronary arteries. Prior CABG. Normal mediastinum. Normal hilar regions. Normal visualized trachea and bronchi. The lungs are well expanded. Mild degree of increased linear markings at the lung bases suggestive of a combination of linear scarring and atelectasis. Calcified granulomas. Normal pleura. Normal chest wall structures. There are degenerative changes of thoracic spine. Calcified splenic granulomas. CT/CTA Chest W/WO Contrast IMPRESSION: No evidence of pulmonary embolism. Findings suggestive of atelectasis superimposed on bibasilar scarring. Calcified granulomas. Electronically Signed: Per Lama MD at 13:00 EDT ,
--- NOTE | 2023-01-22 12:09 | CT_ITS ---
STUDY: CT CERVICAL SPINE WITHOUT CONTRAST REASON FOR EXAM: Female, 82 years old. Cervical pain following a fall. RADIATION DOSAGE (If Supplied By Facility): CTDIvol = ( 21.52 ) mGy, DLP = ( 339.82 ) mGycm TECHNIQUE: High resolution transaxial imaging was performed without contrast material. Sagittal and coronal images were reconstructed. Individualized dose optimization techniques were used for this CT. COMPARISON: Comparison is made with prior study January 17, 2023. FINDINGS: Normal craniovertebral junction. There are degenerative changes of the anterior atlantoaxial articulation. Normal odontoid process. Normal cervical lordosis. Normal vertebral bodies and posterior osseous elements. C2-3: Facet joint osteoarthritis. No significant stenosis seen. C3-4: Facet joint osteoarthritis and hypertrophy worse on the left side. Uncovertebral arthrosis. Mild degree of bilateral neural foraminal stenosis. C4-5: Facet joint osteoarthritis and hypertrophy worse on the left side. Uncovertebral arthrosis. Moderate degree of bilateral neural foraminal stenosis worse on the left side. C5-6: Moderate degree of disc space narrowing and spondylosis. Posterior osteophytes worse on the left side causing left neural foraminal stenosis and mild degree of left spinal canal stenosis. C6-7: Moderate degree of disc space narrowing and spondylosis. Facet joint osteoarthritis. C7-T1: Normal endplates. Normal disc height and morphology. Normal central canal and intervertebral neuroforamina. Atherosclerotic plaque formation of the carotid arteries bilaterally. CT/Spine Cervical without Contras IMPRESSION: Multilevel degenerative changes, as described above. Stable examination. Electronically Signed: Per Lama MD at 12:58 EDT ,
--- NOTE | 2023-01-22 12:09 | CT_ITS ---
STUDY: CT BRAIN WITHOUT CONTRAST REASON FOR EXAM: Female, 82 years old. Head trauma RADIATION DOSAGE (If Supplied By Facility): CTDIvol = ( 44.99 ) mGy, DLP = ( 829.85 ) mGycm TECHNIQUE: Transaxial CT imaging of the brain was performed without administration of intravenous contrast material. Individualized dose optimization techniques were used for this CT. COMPARISON: Comparison is made with prior examination dated January 17, 2023. FINDINGS: Normal soft tissue structures. There is hyperostosis frontalis internus. There is mild cerebral atrophy with widening of the extra-axial spaces and ventricular dilatation. There are areas of decreased attenuation within the white matter tracts of the supratentorial brain, consistent with microvascular disease changes. Old lacunar infarct in the right basal ganglion. Normal brainstem. There is mild cerebellar atrophy. There is no intracranial hemorrhage. There are no findings of an acute ischemic infarction. Atherosclerotic calcification of the vertebral arteries and cavernous portions of the internal carotid arteries bilaterally. Stable old right maxillary and zygomatic arch fractures. CT/Brain/Head without Contrast IMPRESSION: Chronic involutional changes of the brain. Stable examination. Electronically Signed: Per Lama MD at 12:56 EDT ,
--- NOTE | 2023-01-22 12:12 | CM.ED ---
Social Work SW spoke with patient regarding discharge planning per physician request. Pt was in the hospital over the weekend and discharged home. Per daughter, patient has fallen at home and fell yesterday and is generally weak and unable to care for self. Pt resides with spouse whom daughter reports is in his 90's and unable to care for patient. Pt and family is requesting TCU placement for therapy. SW spoke with TCU who can review once patient has recent PT/OT eval. SW discussed options with patient and the need for PT/OT evals to determine needs and then insurance precert for placement. Pt presents as mildly confused but daughter present and expressed understanding. Pt to be admitted for evals and determination of needs [facility] -[facility]- [facility]. Plan: SW to follow for PT/OT evaluations and TCU referral if appropriate. Mitzi Leslie, E [employer], [employer]IC [employer]IC
--- NOTE | 2023-01-22 12:22 | EDS_ITS ---
HPI History of Present Illness Chief Complaint: Shortness of Breath Narrative Narrative: 82-year-old female presenting with continued shortness of breath. She has some generalized malaise. She is able to get around and sometimes but other times she states that she feels weak and she will fall down to be unable to get up. She has hit her head again but denies loss of consciousness. She states he is not having any chest pain. She was sent home on antibiotics due to UTI and has felt no urinary symptoms. Because of her recurrent falling she and her family wish to have her placed in the TCU if possible. They state that the family in the hospital did consider this on the previous admission just last week however due to it being a holiday weekend over the resources were not available. [facility] Medical History Ambulates with cane Anemia Anemia Angina pectoris Anxiety Anxiety Arthritis Asthma Atherosclerotic heart disease of [place] coronary artery without angina pectoris Cardiology follow-up encounter Chest pain Chronic airway obstruction CKD (chronic kidney disease) stage 3, GFR 30-59 ml/min Constipation COPD (chronic obstructive pulmonary disease) Depression Depression Diarrhea Diverticulosis DVT (deep venous thrombosis) Dysplasia of cervix, unspecified Dysthymic disorder Emphysema, unspecified Essential hypertension Fatigue Forgetfulness Glaucoma Gout History of dermatomyositis History of diverticulitis History of echocardiogram History of edema History of heart attack History of left heart catheterization (LHC) (~11/05/21) History of renal disease History of stress test Hx of intestinal obstruction Hx TIA/stroke w/o resid Hypertension Lichen sclerosus Lichen sclerosus Low iron Lung nodule Myalgia Osteoporosis Other pulmonary embolism and infarction Post-menopausal Pulmonary embolism Pure hypercholesterolemia PVD (peripheral vascular disease) Rectocele Restless legs Scleroderma Shortness of breath on exertion SOB (shortness of breath) Walker as ambulation aid Wears dentures Wears glasses Home Medications albuterol sulfate 90 mcg/actuation aerosol inhaler 1 - 2 puff inhalation Q4H PRN PRN Shortness Of Breath 10/10/15 [History Last Taken 01/22/23] folic acid 1 mg tablet 2 mg PO DAILY 10/10/15 [History Last Taken 01/22/23] simvastatin 20 mg tablet 20 mg PO QHS 10/10/15 [History Last Taken 01/21/23] allopurinol 100 mg tablet 200 mg PO DAILY 01/12/19 [History Last Taken 01/22/23] latanoprost 0.005 % eye drops 1 drp ophthalmic (eye) QPM 01/12/19 [History Last Taken 01/21/23] nitroglycerin 0.4 mg sublingual tablet 0.4 mg sublingual Q5-15M PRN Chest Pain 01/12/19 [History Last Taken Unknown] acetaminophen 500 mg tablet 500 mg PO Q8H PRN Pain 06/26/21 [History Last Taken Unknown] cholecalciferol (vitamin D3) 25 mcg (1,000 unit) tablet 25 mcg PO DAILY 06/26/21 [History Last Taken 01/22/23] clobetasol 0.05 % topical cream 1 applic topical BID 06/26/21 [History Last Taken Unknown] brimonidine 0.1 % eye drops 2 drp ophthalmic (eye) DAILY 07/11/21 [History Last Taken 01/22/23] aspirin 81 mg tablet,delayed release (Nora Low Dose Aspirin) 81 mg PO DAILY 10/08/21 [History Last Taken 01/22/23] docusate sodium 100 mg capsule (Colace) 100 mg PO BID PRN Constipation 10/08/21 [History Last Taken 01/22/23] multivitamin 1 tab PO DAILY 10/08/21 [History Last Taken 01/22/23] sertraline 50 mg tablet 50 mg PO DAILY 10/08/21 [History Last Taken 01/22/23] vitamins A,C,X-qqex-pbxyhx 4,296 mcg-226 mg-90 mg capsule (PreserVision AREDS) 1 cap PO BID 12/09/21 [History Last Taken 01/22/23] clopidogrel 75 mg tablet (Plavix) 75 mg PO QDAY #30 tabs 11/07/22 [Rx Last Taken 01/22/23] isosorbide mononitrate 60 mg tablet,extended release 24 hr 60 mg PO BID #60 tabs 11/11/22 [Rx Last Taken 01/22/23] tiotropium 2.5 mcg-olodaterol 2.5 mcg/actuation mist for inhalation (Stiolto Respimat) 2 inh inhalation DAILY #4 grams 12/29/22 [Rx Last Taken 01/22/23] hydrocodone 7.5 mg-acetaminophen 325 mg tablet 1 tab PO QHS PAIN 01/17/23 [History Last Taken 01/21/23] cephalexin 500 mg capsule 500 mg PO BID #14 caps 01/18/23 [Rx Last Taken 01/22/23] doxepin 25 mg capsule 25 mg PO QHS #30 caps 01/18/23 [Rx Last Taken 01/21/23] gabapentin 400 mg capsule 400 mg PO BID #60 caps 01/18/23 [Rx Last Taken 01/22/23] prednisone 10 mg tablet 10 mg PO BID #14 tabs 01/18/23 [Rx Last Taken 01/22/23] budesonide-formoterol HFA 160 mcg-4.5 mcg/actuation aerosol inhaler (Symbicort) inh inhalation BID 01/22/23 [History Last Taken Unknown] calcipotriene 0.005 % topical cream 1 applic topical DAILY PRN SAKIN 01/22/23 [History Last Taken Unknown] lisinopril 10 mg tablet 10 mg PO DAILY 01/22/23 [History Last Taken Unknown] montelukast 10 mg tablet 10 mg PO DAILY 01/22/23 [History Last Taken 01/22/23] netarsudil 0.02 % eye drops (Rhopressa) 1 drp EACH EYE DAILY 01/22/23 [History Last Taken 01/22/23] Allergy/AdvReac Type Severity Reaction Status Date / Time metoprolol tartrate Allergy Unknown Verified 01/22/23 09:42 [From Lopressor] shellfish derived Allergy Anaphylaxis Verified 01/22/23 09:42 Sulfa (Sulfonamide Allergy Rash Verified 01/22/23 09:42 Antibiotics) Family History Father Heart disease Myocardial infarction Surgical History History of cholecystectomy History of coronary artery bypass surgery (~08/10/00) History of intraocular lens implant History of left knee replacement History of total right knee replacement Hx of colonoscopy Hx of heart bypass surgery Social History Smoking Status: Unknown if ever smoked second hand exposure: Yes alcohol intake: never substance use type: does not use caffeine: Yes what type of physical activity do you participate in: none frequency: does not exercise ROS ROS ED Constitutional Constitutional ED: Denies chills, fever(s) or sweats Eyes Eyes: Denies blurry vision or change in vision ENT ENT ED: Denies ear pain or sore throat Cardiovascular Cardiovascular: Denies chest pain, palpitations or racing heartbeat Respiratory/Chest Respiratory/Chest: Reports dyspnea; Denies cough or sputum Gastrointestinal Gastrointestinal: Denies abdominal pain, constipation, diarrhea, nausea or vomiting Genitourinary Genitourinary ED: Denies dysuria, hematuria or urinary frequency Musculoskeletal Musculoskeletal: Denies arthralgias, myalgias or neck pain Integumentary Denies abscess, Abrasions or rash Neurologic Neurologic: Denies headache(s), paresthesias or weakness Psychiatric Psychiatric: Denies anxiety, depression, suicidal ideation or suicidal thoughts Endocrine Endocrinology: Denies polydipsia or polyuria EXAM Physical Exam Const Vital Signs: 01/22/23 09:42 01/22/23 09:45 01/22/23 09:48 Temperature 97.1 F L Temperature Source Temporal Pulse Rate 34 L 50 L Respiratory Rate 10 L Respiratory Effort Non-Labored Short of Breath Respiratory Pattern Blood Pressure 131/68 H Blood Pressure Mean 89 Pulse Ox 93 Oxygen Delivery Method Room Air Room Air 01/22/23 09:49 01/22/23 09:50 01/22/23 10:00 Temperature Temperature Source Pulse Rate 80 Respiratory Rate Respiratory Effort Respiratory Pattern Normal Blood Pressure Blood Pressure Mean Pulse Ox 95 Oxygen Delivery Method Room Air 01/22/23 10:00 01/22/23 10:02 01/22/23 11:01 Temperature Temperature Source Pulse Rate 81 52 L Respiratory Rate 27 H 26 H 17 Respiratory Effort Respiratory Pattern Blood Pressure 150/71 H 147/75 H Blood Pressure Mean 97 99 Pulse Ox 95 95 92 Oxygen Delivery Method Room Air Room Air Room Air 01/22/23 12:08 Temperature Temperature Source Pulse Rate 67 Respiratory Rate 21 H Respiratory Effort Respiratory Pattern Blood Pressure 160/74 H Blood Pressure Mean 102 Pulse Ox 92 Oxygen Delivery Method Room Air Positive well nourished General Appearance ED: NAD; Negative for pallor HEENT Reports moist mucous membranes Eyes PERRL and EOMs intact bilaterally Resp normal respiratory effort and clear to auscultation bilaterally Auscultation: Negative for rales, rhonchi or wheezes Cardio regular rate and regular rhythm Neuro oriented x3 and CN's II-XII intact bilaterally Sensorium / Orientation: alert Motor Exam: strength 5/5 throughout Psych mental status grossly normal Skin General Skin Exam: Negative for jaundice or pallor MDM MDM Lab Data Labs: Laboratory Results - last 24 hr 01/22/23 01/22/23 01/22/23 10:05 10:05 10:05 WBC 9.5 RBC 3.92 L Hgb 13.8 Hct 43.3 MCV 110.5 H MCH 35.2 H MCHC 31.9 L RDW Std Deviation 59.0 H RDW Coeff of Alexandra 14.5 Plt Count 165 MPV 11.9 Immature Gran % (Auto) 0.900 Neut % (Auto) 61.4 Lymph % (Auto) 26.7 [place] % (Auto) 10.2 H Eos % (Auto) 0.5 Baso % (Auto) 0.3 Absolute Neuts (auto) 5.8 Absolute Lymphs (auto) 2.53 Nucleated RBC % 0 D-Dimer Quant (PE/DVT) Sodium 140 Potassium 3.8 Chloride 107 Carbon Dioxide 26.0 Anion Gap 7 BUN 26 H Creatinine 1.41 H Estim Creat Clear Calc 27.02 Est GFR (MDRD) Af Amer 46 L Est GFR (MDRD) Non-Af 38 L BUN/Creatinine Ratio 18.4 Glucose 116 H Calcium 10.0 Troponin I High Sens 20 B-Natriuretic Peptide Urine Color Urine Clarity Urine pH Ur Specific [place] Urine Protein Urine Glucose (UA) Urine Ketones Urine Occult Blood Urine Nitrite Urine Bilirubin Urine Urobilinogen Ur Leukocyte Esterase Urine RBC Urine WBC Ur Squamous Epith Cells Urine Bacteria Urine Mucus 01/22/23 01/22/23 01/22/23 10:05 11:15 11:45 WBC RBC Hgb Hct MCV MCH MCHC RDW Std Deviation RDW Coeff of Alexandra Plt Count MPV Immature Gran % (Auto) Neut % (Auto) Lymph % (Auto) [place] % (Auto) Eos % (Auto) Baso % (Auto) Absolute Neuts (auto) Absolute Lymphs (auto) Nucleated RBC % D-Dimer Quant (PE/DVT) 1.13 H* Sodium Potassium Chloride Carbon Dioxide Anion Gap BUN Creatinine Estim Creat Clear Calc Est GFR (MDRD) Af Amer Est GFR (MDRD) Non-Af BUN/Creatinine Ratio Glucose Calcium Troponin I High Sens B-Natriuretic Peptide 377.5 H Urine Color Yellow Urine Clarity Sl. Cloudy Urine pH 6.5 Ur Specific [place] 1.010 Urine Protein 30 H Urine Glucose (UA) Normal Urine Ketones Negative Urine Occult Blood Negative Urine Nitrite Negative Urine Bilirubin Negative Urine Urobilinogen Normal Ur Leukocyte Esterase 25 H Urine RBC 0 SEEN Urine WBC 0-5 SEEN Ur Squamous Epith Cells 0-5 SEEN Urine Bacteria 0 SEEN Urine Mucus 0 SEEN Radiography Diagnostic Testing: Clinical Impression(s) from Imaging Studies Chest X-Ray 01/22/23 11:14 IMPRESSION: No acute abnormality is seen. Electronically Signed: Per Lama MD at 11:57 EDT , Discharge Plan Triage Chief Complaint: Shortness of Breath Other Complaint: Weakness ED Provider: Roland De Santiago Dx/Rx/DC Orders Prescriptions: No Action latanoprost 0.005 % drops 1 drp OPHTHALMIC QPM nitroglycerin 0.4 mg tablet, sublingual 0.4 mg SUBLINGUAL Q5-15M PRN (Reason: Chest Pain) docusate sodium [Colace] 100 mg capsule 100 mg PO BID PRN (Reason: Constipation) brimonidine 0.1 % drops 2 drp ophthalmic (eye) DAILY acetaminophen 500 mg tablet 500 mg PO Q8H PRN (Reason: Pain) cholecalciferol (vitamin D3) 25 mcg (1,000 unit) tablet 25 mcg PO DAILY clobetasol 0.05 % cream 1 applic topical BID aspirin [Nora Low Dose Aspirin] 81 mg tablet,delayed release (DR/EC) 81 mg PO DAILY multivitamin Tablet 1 tab PO DAILY sertraline 50 mg tablet 50 mg PO DAILY simvastatin 20 MG tablet 20 mg PO QHS folic acid 1 MG tablet 2 mg PO DAILY albuterol sulfate 1 INHALER inhaler 1 - 2 puff inhalation Q4H PRN PRN (Reason: Shortness Of Breath) allopurinol 100 mg tablet 200 mg PO DAILY hydrocodone-acetaminophen 7.5-325 mg Tablet 1 tab PO QHS doxepin 25 mg Capsule 25 mg PO QHS Qty: 30 0RF gabapentin 400 mg Capsule 400 mg PO BID Qty: 60 0RF prednisone 10 mg tablet 10 mg PO BID Qty: 14 0RF cephalexin 500 mg capsule 500 mg PO BID Qty: 14 0RF Rx Instructions: start on 01/19/23 calcipotriene 0.005 % Cream 1 applic TOPICAL DAILY PRN (Reason: SAKIN) Rx Instructions: rub in gently and completely lisinopril 10 mg Tablet 10 mg PO DAILY montelukast 10 mg tablet 10 mg PO DAILY budesonide-formoterol [Symbicort] 160-4.5 mcg/actuation HFA aerosol inhaler inhalation BID Rhopressa 0.02 % Drops 1 drp EACH EYE DAILY PreserVision AREDS [id number] capsule 1 cap PO BID clopidogrel [Plavix] 75 mg tablet 75 mg PO QDAY Qty: 30 11RF isosorbide mononitrate 60 mg tablet extended release 24 hr 60 mg PO BID Qty: 60 12RF Stiolto Respimat 2.5-2.5 mcg/actuation mist 2 inh inhalation DAILY Qty: 4 2RF Primary Care Provider: Steffany Rose Referrals: Steffany Rose MD [Primary Care Provider] -
--- NOTE | 2023-01-22 12:22 | ED.VIS.DYS ---
HPI History of Present Illness Chief Complaint: Shortness of Breath Narrative Narrative: 82-year-old female presenting with continued shortness of breath. She has some generalized malaise. She is able to get around and sometimes but other times she states that she feels weak and she will fall down to be unable to get up. She has hit her head again but denies loss of consciousness. She states he is not having any chest pain. She was sent home on antibiotics due to UTI and has felt no urinary symptoms. Because of her recurrent falling she and her family wish to have her placed in the TCU if possible. They state that the family in the hospital did consider this on the previous admission just last week however due to it being a holiday weekend over the resources were not available. [facility] Medical History Ambulates with cane Anemia Anemia Angina pectoris Anxiety Anxiety Arthritis Asthma Atherosclerotic heart disease of [place] coronary artery without angina pectoris Cardiology follow-up encounter Chest pain Chronic airway obstruction CKD (chronic kidney disease) stage 3, GFR 30-59 ml/min Constipation COPD (chronic obstructive pulmonary disease) Depression Depression Diarrhea Diverticulosis DVT (deep venous thrombosis) Dysplasia of cervix, unspecified Dysthymic disorder Emphysema, unspecified Essential hypertension Fatigue Forgetfulness Glaucoma Gout History of dermatomyositis History of diverticulitis History of echocardiogram History of edema History of heart attack History of left heart catheterization (LHC) (~11/05/21) History of renal disease History of stress test Hx of intestinal obstruction Hx TIA/stroke w/o resid Hypertension Lichen sclerosus Lichen sclerosus Low iron Lung nodule Myalgia Osteoporosis Other pulmonary embolism and infarction Post-menopausal Pulmonary embolism Pure hypercholesterolemia PVD (peripheral vascular disease) Rectocele Restless legs Scleroderma Shortness of breath on exertion SOB (shortness of breath) Walker as ambulation aid Wears dentures Wears glasses Home Medications albuterol sulfate 90 mcg/actuation aerosol inhaler 1 - 2 puff inhalation Q4H PRN PRN Shortness Of Breath 10/10/15 [History Last Taken Unknown] folic acid 1 mg tablet 2 mg PO DAILY SUPPLEMENT 10/10/15 [History Last Taken 01/22/23] simvastatin 20 mg tablet 20 mg PO QHS CHOLESTEROL 10/10/15 [History Last Taken 01/21/23] allopurinol 100 mg tablet 200 mg PO DAILY GOUT 01/12/19 [History Last Taken 01/22/23] latanoprost 0.005 % eye drops 1 drp ophthalmic (eye) QPM GLAUCOMA 01/12/19 [History Last Taken 01/21/23] nitroglycerin 0.4 mg sublingual tablet 0.4 mg sublingual Q5-15M PRN CHEST PAIN 01/12/19 [History Last Taken Unknown] acetaminophen 500 mg tablet 500 mg PO Q8H PRN PAIN 06/26/21 [History Last Taken Unknown] cholecalciferol (vitamin D3) 25 mcg (1,000 unit) tablet 25 mcg PO DAILY SUPPLEMENT 06/26/21 [History Last Taken 01/22/23] clobetasol 0.05 % topical cream 1 applic topical BID PSORIASES 06/26/21 [History Last Taken Unknown] brimonidine 0.1 % eye drops 2 drp ophthalmic (eye) DAILY EYE IRRITATION 07/11/21 [History Last Taken 01/22/23] aspirin 81 mg tablet,delayed release (Nora Low Dose Aspirin) 81 mg PO DAILY HEART HEALTH 10/08/21 [History Last Taken 01/22/23] docusate sodium 100 mg capsule (Colace) 100 mg PO BID PRN CONSTIPATION 10/08/21 [History Last Taken 01/22/23] multivitamin 1 tab PO DAILY HEALTH MAINTENANCE 10/08/21 [History Last Taken 01/22/23] sertraline 50 mg tablet 50 mg PO DAILY DEPRESSION 10/08/21 [History Last Taken 01/22/23] vitamins A,C,S-pcxj-twlgct 4,296 mcg-226 mg-90 mg capsule (PreserVision AREDS) 1 cap PO BID EYE HEALTH 12/09/21 [History Last Taken 01/22/23] hydrocodone 7.5 mg-acetaminophen 325 mg tablet 1 tab PO QHS PAIN 01/17/23 [History Last Taken 01/21/23] budesonide-formoterol HFA 160 mcg-4.5 mcg/actuation aerosol inhaler (Symbicort) 1 inh inhalation BID COPD 01/22/23 [History Last Taken Unknown] calcipotriene 0.005 % topical cream 1 applic topical DAILY PRN PSORIASES 01/22/23 [History Last Taken Unknown] cephalexin 500 mg capsule 500 mg PO BID ANTIBIOTIC 01/22/23 [History Last Taken 01/22/23] clopidogrel 75 mg tablet (Plavix) 75 mg PO DAILY BLOOD THINNER 01/22/23 [History Last Taken 01/22/23] doxepin 25 mg capsule 25 mg PO QHS INSOMNIA 01/22/23 [History Last Taken 01/21/23] gabapentin 400 mg capsule 400 mg PO BID NERVE PAIN 01/22/23 [History Last Taken 01/22/23] hydrocodone 7.5 mg-acetaminophen 325 mg tablet 1 tab PO DAILY PRN PAIN 01/22/23 [History Last Taken Unknown] isosorbide mononitrate 60 mg tablet,extended release 24 hr 60 mg PO BID BLOOD PRESSURE 01/22/23 [History Last Taken 01/22/23] lisinopril 10 mg tablet 10 mg PO DAILY BLOOD PRESSURE 01/22/23 [History Last Taken 01/22/23] montelukast 10 mg tablet 10 mg PO DAILY ALLERGIES 01/22/23 [History Last Taken 01/22/23] netarsudil 0.02 % eye drops (Rhopressa) 1 drp EACH EYE DAILY GLAUCOMA 01/22/23 [History Last Taken 01/22/23] prednisone 10 mg tablet 10 mg PO BID STEROID 01/22/23 [History Last Taken 01/22/23] tiotropium 2.5 mcg-olodaterol 2.5 mcg/actuation mist for inhalation (Stiolto Respimat) 2 inh inhalation DAILY COPD 01/22/23 [History Last Taken 01/22/23] Allergy/AdvReac Type Severity Reaction Status Date / Time metoprolol tartrate Allergy Unknown Verified 01/22/23 09:42 [From Lopressor] shellfish derived Allergy Anaphylaxis Verified 01/22/23 09:42 Sulfa (Sulfonamide Allergy Rash Verified 01/22/23 09:42 Antibiotics) Family History Father Heart disease Myocardial infarction Surgical History History of cholecystectomy History of coronary artery bypass surgery (~08/10/00) History of intraocular lens implant History of left knee replacement History of total right knee replacement Hx of colonoscopy Hx of heart bypass surgery Social History Smoking Status: Unknown if ever smoked second hand exposure: Yes alcohol intake: never substance use type: does not use caffeine: Yes what type of physical activity do you participate in: none frequency: does not exercise ROS ROS ED Constitutional Constitutional ED: Denies chills, fever(s) or sweats Eyes Eyes: Denies blurry vision or change in vision ENT ENT ED: Denies ear pain or sore throat Cardiovascular Cardiovascular: Denies chest pain, palpitations or racing heartbeat Respiratory/Chest Respiratory/Chest: Reports dyspnea; Denies cough or sputum Gastrointestinal Gastrointestinal: Denies abdominal pain, constipation, diarrhea, nausea or vomiting Genitourinary Genitourinary ED: Denies dysuria, hematuria or urinary frequency Musculoskeletal Musculoskeletal: Denies arthralgias, myalgias or neck pain Integumentary Denies abscess, Abrasions or rash Neurologic Neurologic: Denies headache(s), paresthesias or weakness Psychiatric Psychiatric: Denies anxiety, depression, suicidal ideation or suicidal thoughts Endocrine Endocrinology: Denies polydipsia or polyuria EXAM Physical Exam Const Vital Signs: 01/22/23 09:42 01/22/23 09:45 01/22/23 09:48 Temperature 97.1 F L Temperature Source Temporal Pulse Rate 34 L 50 L Respiratory Rate 10 L Respiratory Effort Non-Labored Short of Breath Respiratory Pattern Blood Pressure 131/68 H Blood Pressure Mean 89 Pulse Ox 93 Oxygen Delivery Method Room Air Room Air 01/22/23 09:49 01/22/23 09:50 01/22/23 10:00 Temperature Temperature Source Pulse Rate 80 Respiratory Rate Respiratory Effort Respiratory Pattern Normal Blood Pressure Blood Pressure Mean Pulse Ox 95 Oxygen Delivery Method Room Air 01/22/23 10:00 01/22/23 10:02 01/22/23 11:01 Temperature Temperature Source Pulse Rate 81 52 L Respiratory Rate 27 H 26 H 17 Respiratory Effort Respiratory Pattern Blood Pressure 150/71 H 147/75 H Blood Pressure Mean 97 99 Pulse Ox 95 95 92 Oxygen Delivery Method Room Air Room Air Room Air 01/22/23 12:08 01/22/23 13:16 Temperature 97.7 F L Temperature Source Oral Pulse Rate 67 69 Respiratory Rate 21 H 22 H Respiratory Effort Respiratory Pattern Blood Pressure 160/74 H 165/91 H Blood Pressure Mean 102 115 Pulse Ox 92 94 Oxygen Delivery Method Room Air Room Air Positive well nourished General Appearance ED: NAD; Negative for pallor HEENT Reports moist mucous membranes Eyes PERRL and EOMs intact bilaterally Resp normal respiratory effort and clear to auscultation bilaterally Auscultation: Negative for rales, rhonchi or wheezes Cardio regular rate and regular rhythm Neuro oriented x3 and CN's II-XII intact bilaterally Sensorium / Orientation: alert Motor Exam: strength 5/5 throughout Psych mental status grossly normal Skin General Skin Exam: Negative for jaundice or pallor MDM MDM MDM Narrative Medical decision making narrative: Patient presenting with shortness of breath and falls. He reported to me that on arrival while being placed on the monitor her heart rate was going from the 30s to the 60s. Patient does report that she is pretty ambulatory most of the time but has episodes where she gets weak and goes down and there is concerned that this could be due to bradycardia. Differential includes ACS, tachybradycardia syndrome, CHF, pneumonia, anemia, electrolyte abnormalities, UTI. CBC to assess white blood cell count, hemoglobin, platelets, differential. BMP to assess renal function, electrolytes, glucose, anion gap. High-sensitivity troponin and EKG to assess for ischemia and arrhythmia. Chest x-ray to rule out pneumonia or CHF. Urinalysis to rule out UTI. D-dimer due to the patient's history of DVT/PE. CBC ultimately unremarkable with a white blood cell count of 9.5. Hemoglobin stable at 13.8. Platelets are normal at 165. Creatinine is increased at 1.41 from 1.19. Electrolytes otherwise unremarkable. High-sensitivity opponent is 20. BNP 377.5 EKG is sinus rhythm at a rate of 75 bpm with premature supraventricular complexes on my interpretation. SD interval 184 ms, QRS duration 98 ms, QT/QTc 428/470. Chest x-ray my interpretation shows no acute cardiopulmonary process. Radiology interprets this and agrees. Patient's D-dimer came back elevated at 1.13. I went to discuss this with the patient and they are amenable to CTA. During this discussion note we did determine that the patient had fallen again and hit her head and was having some occipital pain. I found no injuries here but I did obtain a CT brain and cervical spine and these and were negative as well. CTA showed no evidence of PE or dissection. There is no acute process. I did speak with social work as the patient had recently been admitted and had PT OT evaluation, but they stated that since it was not within the last 24 hours that would need to repeat this and for this reason the patient need to be admitted to the hospital. At this point the patient was discussed with the hospitalist for admission. Impression: 1. Bradycardia 2. Weakness 3. Recurrent falls 4. Closed head injury 5. Dyspnea Lab Data Labs: Laboratory Results - last 24 hr 01/22/23 01/22/23 01/22/23 10:05 10:05 10:05 WBC 9.5 RBC 3.92 L Hgb 13.8 Hct 43.3 MCV 110.5 H MCH 35.2 H MCHC 31.9 L RDW Std Deviation 59.0 H RDW Coeff of Alexandra 14.5 Plt Count 165 MPV 11.9 Immature Gran % (Auto) 0.900 Neut % (Auto) 61.4 Lymph % (Auto) 26.7 [place] % (Auto) 10.2 H Eos % (Auto) 0.5 Baso % (Auto) 0.3 Absolute Neuts (auto) 5.8 Absolute Lymphs (auto) 2.53 Nucleated RBC % 0 D-Dimer Quant (PE/DVT) Sodium 140 Potassium 3.8 Chloride 107 Carbon Dioxide 26.0 Anion Gap 7 BUN 26 H Creatinine 1.41 H Estim Creat Clear Calc 27.02 Est GFR (MDRD) Af Amer 46 L Est GFR (MDRD) Non-Af 38 L BUN/Creatinine Ratio 18.4 Glucose 116 H Calcium 10.0 Troponin I High Sens 20 B-Natriuretic Peptide Urine Color Urine Clarity Urine pH Ur Specific [place] Urine Protein Urine Glucose (UA) Urine Ketones Urine Occult Blood Urine Nitrite Urine Bilirubin Urine Urobilinogen Ur Leukocyte Esterase Urine RBC Urine WBC Ur Squamous Epith Cells Urine Bacteria Urine Mucus 01/22/23 01/22/23 01/22/23 10:05 11:15 11:45 WBC RBC Hgb Hct MCV MCH MCHC RDW Std Deviation RDW Coeff of Alexandra Plt Count MPV Immature Gran % (Auto) Neut % (Auto) Lymph % (Auto) [place] % (Auto) Eos % (Auto) Baso % (Auto) Absolute Neuts (auto) Absolute Lymphs (auto) Nucleated RBC % D-Dimer Quant (PE/DVT) 1.13 H* Sodium Potassium Chloride Carbon Dioxide Anion Gap BUN Creatinine Estim Creat Clear Calc Est GFR (MDRD) Af Amer Est GFR (MDRD) Non-Af BUN/Creatinine Ratio Glucose Calcium Troponin I High Sens B-Natriuretic Peptide 377.5 H Urine Color Yellow Urine Clarity Sl. Cloudy Urine pH 6.5 Ur Specific [place] 1.010 Urine Protein 30 H Urine Glucose (UA) Normal Urine Ketones Negative Urine Occult Blood Negative Urine Nitrite Negative Urine Bilirubin Negative Urine Urobilinogen Normal Ur Leukocyte Esterase 25 H Urine RBC 0 SEEN Urine WBC 0-5 SEEN Ur Squamous Epith Cells 0-5 SEEN Urine Bacteria 0 SEEN Urine Mucus 0 SEEN Radiography Diagnostic Testing: Clinical Impression(s) from Imaging Studies Chest X-Ray 01/22/23 11:14 IMPRESSION: No acute abnormality is seen. Electronically Signed: Per Lama MD at 11:57 EDT , Chest CTA 01/22/23 12:08 IMPRESSION: No evidence of pulmonary embolism. Findings suggestive of atelectasis superimposed on bibasilar scarring. Calcified granulomas. Electronically Signed: Per Lama MD at 13:00 EDT , Brain CT 01/22/23 12:09 IMPRESSION: Chronic involutional changes of the brain. Stable examination. Electronically Signed: Per Lama MD at 12:56 EDT , Cervical Spine CT 01/22/23 12:09 IMPRESSION: Multilevel degenerative changes, as described above. Stable examination. Electronically Signed: Per Lama MD at 12:58 EDT , Discharge Plan Triage Chief Complaint: Shortness of Breath Other Complaint: Weakness ED Provider: Jonnathan,Roland Dx/Rx/DC Orders Prescriptions: No Action latanoprost 0.005 % drops 1 drp OPHTHALMIC QPM nitroglycerin 0.4 mg tablet, sublingual 0.4 mg SUBLINGUAL Q5-15M PRN (Reason: CHEST PAIN ) docusate sodium [Colace] 100 mg capsule 100 mg PO BID PRN (Reason: CONSTIPATION ) brimonidine 0.1 % drops 2 drp ophthalmic (eye) DAILY acetaminophen 500 mg tablet 500 mg PO Q8H PRN (Reason: PAIN ) cholecalciferol (vitamin D3) 25 mcg (1,000 unit) tablet 25 mcg PO DAILY clobetasol 0.05 % cream 1 applic topical BID aspirin [Nora Low Dose Aspirin] 81 mg tablet,delayed release (DR/EC) 81 mg PO DAILY multivitamin Tablet 1 tab PO DAILY sertraline 50 mg tablet 50 mg PO DAILY simvastatin 20 MG tablet 20 mg PO QHS folic acid 1 MG tablet 2 mg PO DAILY albuterol sulfate 1 INHALER inhaler 1 - 2 puff inhalation Q4H PRN PRN (Reason: Shortness Of Breath) allopurinol 100 mg tablet 200 mg PO DAILY hydrocodone-acetaminophen 7.5-325 mg Tablet 1 tab PO QHS calcipotriene 0.005 % Cream 1 applic TOPICAL DAILY PRN (Reason: PSORIASES) Rx Instructions: rub in gently and completely lisinopril 10 mg Tablet 10 mg PO DAILY montelukast 10 mg tablet 10 mg PO DAILY budesonide-formoterol [Symbicort] 160-4.5 mcg/actuation HFA aerosol inhaler 1 inh inhalation BID Rhopressa 0.02 % Drops 1 drp EACH EYE DAILY hydrocodone-acetaminophen 7.5-325 mg tablet 1 tab PO DAILY PRN (Reason: PAIN ) prednisone 10 mg tablet 10 mg PO BID doxepin 25 mg capsule 25 mg PO QHS gabapentin 400 mg capsule 400 mg PO BID clopidogrel [Plavix] 75 mg tablet 75 mg PO DAILY isosorbide mononitrate 60 mg tablet extended release 24 hr 60 mg PO BID cephalexin 500 mg capsule 500 mg PO BID Stiolto Respimat 2.5-2.5 mcg/actuation mist 2 inh inhalation DAILY PreserVision AREDS [id number] capsule 1 cap PO BID Primary Care Provider: Steffany Rose Referrals: Steffany Rose MD [Primary Care Provider] -
--- NOTE | 2023-01-22 13:22 | PCM.HP.STD ---
HPI - General General Date of Admission: 01/22/23 Date of Service: 01/22/23 Chief Complaint: Generalized weakness HPI Narrative TALIA BURT, is a 82 F with a history of COPD, VTE, coronary artery disease status post CABG in 1999, hypertension, CKD stage IIIb presented to [facility] 01/22/2023 with increasing weakness and malaise. She had recent admission and was discharged 01/17/2023 after hospitalization for COPD exacerbation and cystitis and was discharged on prednisone and Keflex. Since that time she is continue to feel weak and had 2 falls yesterday 1 of which she hit her head. Does not report she is necessarily more short of breath but is weak all over with fatigue and malaise. No fevers that she has noted, has some urinary frequency but no burning or abdominal pain, denied any other focal complaints. [facility] Medical History Ambulates with cane Anemia Anemia Angina pectoris Anxiety Anxiety Arthritis Asthma Atherosclerotic heart disease of [place] coronary artery without angina pectoris Cardiology follow-up encounter Chest pain Chronic airway obstruction CKD (chronic kidney disease) stage 3, GFR 30-59 ml/min Constipation COPD (chronic obstructive pulmonary disease) Depression Depression Diarrhea Diverticulosis DVT (deep venous thrombosis) Dysplasia of cervix, unspecified Dysthymic disorder Emphysema, unspecified Essential hypertension Fatigue Forgetfulness Glaucoma Gout History of dermatomyositis History of diverticulitis History of echocardiogram History of edema History of heart attack History of left heart catheterization (LHC) (~11/05/21) History of renal disease History of stress test Hx of intestinal obstruction Hx TIA/stroke w/o resid Hypertension Lichen sclerosus Lichen sclerosus Low iron Lung nodule Myalgia Osteoporosis Other pulmonary embolism and infarction Post-menopausal Pulmonary embolism Pure hypercholesterolemia PVD (peripheral vascular disease) Rectocele Restless legs Scleroderma Shortness of breath on exertion SOB (shortness of breath) Walker as ambulation aid Wears dentures Wears glasses Home Medications albuterol sulfate 90 mcg/actuation aerosol inhaler 1 - 2 puff inhalation Q4H PRN PRN Shortness Of Breath 10/10/15 [History Last Taken Unknown] folic acid 1 mg tablet 2 mg PO DAILY SUPPLEMENT 10/10/15 [History Last Taken 01/22/23] simvastatin 20 mg tablet 20 mg PO QHS CHOLESTEROL 10/10/15 [History Last Taken 01/21/23] allopurinol 100 mg tablet 200 mg PO DAILY GOUT 01/12/19 [History Last Taken 01/22/23] latanoprost 0.005 % eye drops 1 drp ophthalmic (eye) QPM GLAUCOMA 01/12/19 [History Last Taken 01/21/23] nitroglycerin 0.4 mg sublingual tablet 0.4 mg sublingual Q5-15M PRN CHEST PAIN 01/12/19 [History Last Taken Unknown] acetaminophen 500 mg tablet 500 mg PO Q8H PRN PAIN 06/26/21 [History Last Taken Unknown] cholecalciferol (vitamin D3) 25 mcg (1,000 unit) tablet 25 mcg PO DAILY SUPPLEMENT 06/26/21 [History Last Taken 01/22/23] clobetasol 0.05 % topical cream 1 applic topical BID PSORIASES 06/26/21 [History Last Taken Unknown] brimonidine 0.1 % eye drops 2 drp ophthalmic (eye) DAILY EYE IRRITATION 07/11/21 [History Last Taken 01/22/23] aspirin 81 mg tablet,delayed release (Nora Low Dose Aspirin) 81 mg PO DAILY HEART HEALTH 10/08/21 [History Last Taken 01/22/23] docusate sodium 100 mg capsule (Colace) 100 mg PO BID PRN CONSTIPATION 10/08/21 [History Last Taken 01/22/23] multivitamin 1 tab PO DAILY HEALTH MAINTENANCE 10/08/21 [History Last Taken 01/22/23] sertraline 50 mg tablet 50 mg PO DAILY DEPRESSION 10/08/21 [History Last Taken 01/22/23] vitamins A,C,T-amim-fmmzig 4,296 mcg-226 mg-90 mg capsule (PreserVision AREDS) 1 cap PO BID EYE HEALTH 12/09/21 [History Last Taken 01/22/23] hydrocodone 7.5 mg-acetaminophen 325 mg tablet 1 tab PO QHS PAIN 01/17/23 [History Last Taken 01/21/23] budesonide-formoterol HFA 160 mcg-4.5 mcg/actuation aerosol inhaler (Symbicort) 1 inh inhalation BID COPD 01/22/23 [History Last Taken Unknown] calcipotriene 0.005 % topical cream 1 applic topical DAILY PRN PSORIASES 01/22/23 [History Last Taken Unknown] cephalexin 500 mg capsule 500 mg PO BID ANTIBIOTIC 01/22/23 [History Last Taken 01/22/23] clopidogrel 75 mg tablet (Plavix) 75 mg PO DAILY BLOOD THINNER 01/22/23 [History Last Taken 01/22/23] doxepin 25 mg capsule 25 mg PO QHS INSOMNIA 01/22/23 [History Last Taken 01/21/23] gabapentin 400 mg capsule 400 mg PO BID NERVE PAIN 01/22/23 [History Last Taken 01/22/23] hydrocodone 7.5 mg-acetaminophen 325 mg tablet 1 tab PO DAILY PRN PAIN 01/22/23 [History Last Taken Unknown] isosorbide mononitrate 60 mg tablet,extended release 24 hr 60 mg PO BID BLOOD PRESSURE 01/22/23 [History Last Taken 01/22/23] lisinopril 10 mg tablet 10 mg PO DAILY BLOOD PRESSURE 01/22/23 [History Last Taken 01/22/23] montelukast 10 mg tablet 10 mg PO DAILY ALLERGIES 01/22/23 [History Last Taken 01/22/23] netarsudil 0.02 % eye drops (Rhopressa) 1 drp EACH EYE DAILY GLAUCOMA 01/22/23 [History Last Taken 01/22/23] prednisone 10 mg tablet 10 mg PO BID STEROID 01/22/23 [History Last Taken 01/22/23] tiotropium 2.5 mcg-olodaterol 2.5 mcg/actuation mist for inhalation (Stiolto Respimat) 2 inh inhalation DAILY COPD 01/22/23 [History Last Taken 01/22/23] Allergy/AdvReac Type Severity Reaction Status Date / Time metoprolol tartrate Allergy Unknown Verified 01/22/23 09:42 [From Lopressor] shellfish derived Allergy Anaphylaxis Verified 01/22/23 09:42 Sulfa (Sulfonamide Allergy Rash Verified 01/22/23 09:42 Antibiotics) Family History Father Heart disease Myocardial infarction Family History no significant family his Surgical History History of cholecystectomy History of coronary artery bypass surgery (~08/10/00) History of intraocular lens implant History of left knee replacement History of total right knee replacement Hx of colonoscopy Hx of heart bypass surgery Social History Smoking Status: Former smoker second hand exposure: Yes alcohol intake: never substance use type: does not use caffeine: Yes what type of physical activity do you participate in: none frequency: does not exercise ROS ROS Narrative General: Denies fever/chills, generalized malaise HENT: Occasional slight headaches, denies stuffy nose, denies sore throat EYES: Denies changes in vision Resp: No changes in cough or shortness of breath Cardiac: Denies chest pain GI: Denies abdominal pain, denies changes in bowel, denies nausea/vomiting : Urinates often but no dysuria Extremity: Denies swelling MSK: Diffuse weakness without any focal complaints Neuro: Denies any numbness/tingling Heme: Denies any bleeding or bruising Skin: Denies rashes Psychiatric: No complaints voiced Vital Signs Vital Signs Vital Signs: 01/22/23 09:42 01/22/23 09:45 01/22/23 09:48 Temperature 97.1 F L Temperature Source Temporal Pulse Rate 34 L 50 L Respiratory Rate 10 L Respiratory Effort Non-Labored Short of Breath Respiratory Pattern Blood Pressure 131/68 H Blood Pressure Mean 89 Pulse Ox 93 Oxygen Delivery Method Room Air Room Air 01/22/23 09:49 01/22/23 09:50 01/22/23 10:00 Temperature Temperature Source Pulse Rate 80 Respiratory Rate Respiratory Effort Respiratory Pattern Normal Blood Pressure Blood Pressure Mean Pulse Ox 95 Oxygen Delivery Method Room Air 01/22/23 10:00 01/22/23 10:02 01/22/23 11:01 Temperature Temperature Source Pulse Rate 81 52 L Respiratory Rate 27 H 26 H 17 Respiratory Effort Respiratory Pattern Blood Pressure 150/71 H 147/75 H Blood Pressure Mean 97 99 Pulse Ox 95 95 92 Oxygen Delivery Method Room Air Room Air Room Air 01/22/23 12:08 01/22/23 13:16 Temperature 97.7 F L Temperature Source Oral Pulse Rate 67 69 Respiratory Rate 21 H 22 H Respiratory Effort Respiratory Pattern Blood Pressure 160/74 H 165/91 H Blood Pressure Mean 102 115 Pulse Ox 92 94 Oxygen Delivery Method Room Air Room Air Weight Weight: 86.6 kg Body Mass Index (BMI) 32.8 Physical Exam Narrative General: Alert, oriented, appears tired HEENT: Atraumatic, normocephalic Eyes: Anicteric, normal conjunctiva, extraocular movements grossly intact Neck: Supple Respiratory: Somewhat diminished bilaterally, normal respiratory effort Cardiovascular: Regular rate and rhythm GI: Soft, nontender, nondistended Extremities: No edema Musculoskeletal: Moving all extremities, 5 out of 5 in upper and lower extremities symmetrically, strong cook specialty foreign food strength symmetrically. Facial movement symmetrical with no overt deficits appreciated, finger-nose without any significant difficulty Neuro: No overt focal neurological deficits Skin: No rashes appreciated Psych: Cooperative Results Lab / Micro Data Result Diagrams: 01/22/23 10:05 01/22/23 10:05 Labs: Laboratory Results - last 24 hr 01/22/23 10:05: WBC 9.5, RBC 3.92 L, Hgb 13.8, Hct 43.3, MCV 110.5 H, MCH 35.2 H, MCHC 31.9 L, RDW Std Deviation 59.0 H, RDW Coeff of Alexandra 14.5, Plt Count 165, MPV 11.9, Immature Gran % (Auto) 0.900, Neut % (Auto) 61.4, Lymph % (Auto) 26.7, [place] % (Auto) 10.2 H, Eos % (Auto) 0.5, Baso % (Auto) 0.3, Absolute Neuts (auto) 5.8, Absolute Lymphs (auto) 2.53, Nucleated RBC % 0 01/22/23 10:05: Sodium 140, Potassium 3.8, Chloride 107, Carbon Dioxide 26.0, Anion Gap 7, BUN 26 H, Creatinine 1.41 H, Estim Creat Clear Calc 27.02, Est GFR (MDRD) Af Amer 46 L, Est GFR (MDRD) Non-Af 38 L, BUN/Creatinine Ratio 18.4, Glucose 116 H, Calcium 10.0 01/22/23 10:05: Troponin I High Sens 20 01/22/23 10:05: B-Natriuretic Peptide 377.5 H 01/22/23 11:15: Urine Color Yellow, Urine Clarity Sl. Cloudy, Urine pH 6.5, Ur Specific [place] 1.010, Urine Protein 30 H, Urine Glucose (UA) Normal, Urine Ketones Negative, Urine Occult Blood Negative, Urine Nitrite Negative, Urine Bilirubin Negative, Urine Urobilinogen Normal, Ur Leukocyte Esterase 25 H, Urine RBC 0 SEEN, Urine WBC 0-5 SEEN, Ur Squamous Epith Cells 0-5 SEEN, Urine Bacteria 0 SEEN, Urine Mucus 0 SEEN 01/22/23 11:45: D-Dimer Quant (PE/DVT) 1.13 H* Micro: Microbiology 01/22/23 10:05 Nasal Secretion SARS-CoV-2 Antigen (Rapid) - Final Radiology Impression Chest X-Ray 01/22/23 11:14 IMPRESSION: No acute abnormality is seen. Electronically Signed: Per Lama MD at 11:57 EDT , Chest CTA 01/22/23 12:08 IMPRESSION: No evidence of pulmonary embolism. Findings suggestive of atelectasis superimposed on bibasilar scarring. Calcified granulomas. Electronically Signed: Per Lama MD at 13:00 EDT , Brain CT 01/22/23 12:09 IMPRESSION: Chronic involutional changes of the brain. Stable examination. Electronically Signed: Per Lama MD at 12:56 EDT , Cervical Spine CT 01/22/23 12:09 IMPRESSION: Multilevel degenerative changes, as described above. Stable examination. Electronically Signed: Per Lama MD at 12:58 EDT , Assessment & Plan Assessment/Plan (1) Weakness: (2) COLD (chronic obstructive lung disease): (3) History of coronary artery bypass surgery: (4) Essential hypertension: (5) Glaucoma: (6) CKD (chronic kidney disease) stage 3, GFR 30-59 ml/min: PLAN: Plan #Weakness and falls -Could possibly be due to underlying infection -Additionally has elevated MCV- we will check B12 -Vitamin D within normal limits -Unclear reason for increased RDW and retic count, iron panel within normal limits, no signs or symptoms of bleeding -Not anemic at present though LDH elevated, haptoglobin pending, and bilirubin within normal limits with no other signs of hemolysis -This in combination with fibrinogen and D-dimer may all be due to underlying infection though Pro-Abad inflammatory markers are benign -Decrease gabapentin -PT/OT #Strep mitis bacteremia -1 out of 2 cultures from 01/17 -Presently 1 has resulted strep mitis with the other still pending -We will repeat cultures and obtain echo -If repeat cultures positive may need MILDRED or further evaluation -Vanc #LANDON on ckd IIIb -Possibly somewhat dehydrated -Given elevated BNP hesitant to give significant amount of fluids so will hydrate judiciously and slowly, monitor I's and O's and daily weights #COPD -Does not seem to be in exacerbation, continue nebs -Prednisone 40 daily, will de-escalate again as able though. She was post to be taking 20 mg since discharge #CAD s/p CABG 1999 -Continue home medication #HTN -Continue home medication #DVT ppx: Lovenox subq Erlinda Herndon MD Time spent in the patient's overall evaluation,decision-making process, review of diagnostic data, adjustment of management, discussion with other providers, nursing nursing and ancillary staff involved in patient's care documentation, 60 Minutes Charges/Coding Visit Charges Inpatient E&M: 46715 Init Hosp L2
--- NOTE | 2023-01-22 13:34 | ECHOL_ITS ---
Reason For Study: DYSPNEA Procedure This was a limited 2D transthoracic echocardiogram. Exam performed portable in patient room. Left Ventricle Normal LV size. Mild global left ventricular systolic dysfunction. The left ventricular ejection fraction is 45 %. Right Ventricle Normal right ventricle. Atria The left atrium is severely enlarged. Mitral Valve Moderate focal mitral valve calcification of the posterior leaflet. Tricuspid Valve Normal tricuspid valve. Aortic Valve Normal aortic valve. Pulmonic Valve The pulmonic valve is not well visualized. Great Vessels Normal sized aortic root. Pericardium/Pleural No pericardial effusion. MMode/2D Measurements & Calculations LVIDd: 4.4 cm IVSd: 0.78 cm Ao root diam: 2.5 cm LVIDs: 3.6 cm LVPWd: 1.0 cm FS: 18.7 % LAV(MOD-bp): 89.5 ml LVAd ap4: 27.8 cm2 SV(MOD-sp4): 38.4 ml LAV(MOD-bp) Indexed: 46.7 ml/m2 LVLd ap4: 7.3 cm LAV(MOD-sp2): 66.2 ml EDV(MOD-sp4): 88.2 ml LAV(MOD-sp4): 96.7 ml EDV(sp4-el): 89.8 ml LVAs ap4: 18.3 cm2 LVLs ap4: 6.1 cm ESV(MOD-sp4): 49.8 ml ESV(sp4-el): 46.7 ml EF(MOD-sp4): 43.5 % EF(sp4-el): 48.0 % SV(sp4-el): 43.1 ml LA A4 area: 28.2 cm2 LA dimension(2D): 5.0 cm RA A4 area: 12.8 cm2 ECHO/Echo, Limited Study Interpretation Summary The left ventricular ejection fraction is 45 %. Mild global left ventricular systolic dysfunction. The left atrium is severely enlarged. Moderate focal mitral valve calcification of the posterior leaflet. Ordering Physician: Erlinda Herndon Referring Physician: Steffany Rose M.D. Performed By: Emili Soares RCS
--- NOTE | 2023-01-22 14:25 | NURSING ---
PCU OBS [facility]BAR[facility] DEBILITY
[2023-01-22 15:27] LABS: Fibrinogen 540 mg/dl (203-444)
[2023-01-22 16:07] LABS: Platelet Count 189 K/mm3 (150-450); RET-HE 37.4 pg (30-35); Reticulocyte Count 2.31 % (0.5-1.5)
[2023-01-22 16:18] LABS: Erythrocyte Sedimentation Rate 19 mm/hr (0-30)
[2023-01-22 16:32] LABS: LDH 295 U/L (84-246)
[2023-01-22 16:59] LABS: AST(SGOT) 39 U/L (15-37); Alanine Aminotransfer ALT/SGPT 44 U/L (13-56); Albumin, Serum 3.8 g/dL (3.2-5.0); Alkaline Phosphatase 86 U/L (45-117); Bilirubin, Direct 0.13 mg/dL (0.00-0.30); CPK Total, Creatine Kinase 88 U/L (26-192); CRP < 2.90 mg/L (0.0-3.0); Globulin 3.6 g/dL (2.2-4.2); Iron 92 ug/dL (50-170); Iron Binding Capacity,Total 332 ug/dL (250-450); Magnesium 2.4 mg/dL (1.6-2.6); PERCENT IRON SATURATION 27.7 % (15.0-55.0); Phosphorus 3.8 mg/dL (2.5-4.9); Protein, Total 7.4 g/dL (6.4-8.2); Thyroid Stim Hormone (TSH) 1.47 uIU/mL (0.358-3.74)
[2023-01-22] MEDS: 0.9% Normal Saline 1,000 ML 50 ML IV (17:33)
[2023-01-22] MEDS: Multivitamin (Healthy Eyes) Capsule 1 CAP PO (17:33)
[2023-01-22 17:34] LABS: Procalcitonin < 0.04 ng/mL (0.00-0.09)
--- NOTE | 2023-01-22 18:57 | PCM.RX.CS ---
Consult Pharmacy has been consulted to manage selected antiobiotic: Vancomycin Type of Consult: New start Prior Doses of Antibiotics Received/Current Regimen: 01/22/23 @ 1119 Patient administered 2000mg x1 Labs: Sodium 140 mmol/L (136-145) 01/22/23 10:05 Potassium 3.8 mmol/L (3.5-5.1) 01/22/23 10:05 Chloride 107 mmol/L (98-107) 01/22/23 10:05 Carbon Dioxide 26.0 mmol/L (21.0-32.0) 01/22/23 10:05 Anion Gap 7 (5-15) 01/22/23 10:05 BUN 26 mg/dL (7-18) H 01/22/23 10:05 Creatinine 1.41 mg/dL (0.55-1.02) H 01/22/23 10:05 Est GFR (MDRD) Af Amer 46 mL/min (>60) L 01/22/23 10:05 Est GFR (MDRD) Non-Af 38 mL/min (>60) L 01/22/23 10:05 BUN/Creatinine Ratio 18.4 RATIO (10-20) 01/22/23 10:05 Glucose 116 mg/dL (74-106) H 01/22/23 10:05 Microbiology: Microbiology 01/22/23 10:05 Nasal Secretion SARS-CoV-2 Antigen (Rapid) - Final Weight used for dosin kg Estimated Creatinine Clearance: 33 Goal Trough: 15-20 mcg/mL Pharmacy Plan for Drug Dosinmg every 24 hours starting 01/23/23 @ 1730 Pharmacy Service will continue to monitor and adjust dosing as required. Follow-Up Labs: Trough Vancomycin Labs to be done on [date and time ordered]: 01/24/23 @ 1700
[2023-01-22 20:26] LABS: Vitamin B12 800 pg/mL (211-911)
[2023-01-22] MEDS: Latanoprost 0.005% 1 Bottle 1 DRP OPHTHALMIC (22:50)
[2023-01-22] MEDS: Gabapentin 100 MG Capsule 200 MG PO (22:50)
[2023-01-22] MEDS: Atorvastatin Calcium 10 MG Tablet PO (22:50)
[2023-01-23] VITALS (8 sets, daily range): BP systolic 137–170; BP diastolic 77–107; PULSE 64–86; RESP 17–18; TEMP 36.4–36.9; O2SAT 92–95; BMI 32.3
[2023-01-23 05:23] LABS: Absolute Lymphocyte Count 2.23 X10^3/uL (0.83-4.51); Absolute Neutrophil Count 5.4 X10^3/uL (2.0-7.7); Basophil# 0.04 X10^3/uL; Basophil% 0.5 % (0-1); Eosinophil# 0.17 X10^3/uL; Eosinophils% 1.9 % (0-5); Hematocrit 39.7 % (37-47); Hemoglobin 12.6 g/dL (12.0-15.0); Lymphocyte # 2.23 X10^3/ul (0.83-4.51); Lymphocyte % 25.3 % (19-41); Mean Corp Hgb Conc 31.7 g/dL (32-36); Mean Corpuscular Hgb 34.9 pg (27.0-32.0); Mean Platelet Vol. 11.8 fl (6.2-12.0); Monocyte# 0.97 X10^3/uL; NRBC Flagged by Analyzer 0 % (0-5); Neutrophil # 5.35 X10^3/uL (2.7-7.7); Neutrophil % 60.5 % (47-70); Platelet Count 165 K/mm3 (150-450); RBC Distribution Width CV 14.3 % (11.6-14.6); RBC Distribution Width SD 58.1 fl (35.1-43.9); Red Blood Count 3.61 M/mm3 (4.2-5.4); White Blood Count 8.8 K/mm3 (4.4-11.0)
[2023-01-23 05:53] LABS: ALB/GLOB Ratio 1.1 RATIO (0.9-2.4); AST(SGOT) 31 U/L (15-37); Alanine Aminotransfer ALT/SGPT 41 U/L (13-56); Albumin, Serum 3.3 g/dL (3.2-5.0); Alkaline Phosphatase 80 U/L (45-117); Anion Gap 7 (5-15); BUN 29 mg/dL (7-18); Calcium,Total 9.5 mg/dL (8.5-10.1); Chloride 109 mmol/L (98-107); Creatinine, Serum 1.26 mg/dL (0.55-1.02); EST Glomerular Filtration Rate 43 mL/min (>60); Est Glom Filt Rate - Afr Amer 52 mL/min (>60); Estimated Creatinine Clearance 30.24 ml/min; Ferritin 55 ng/mL (8-252); Globulin 3.1 g/dL (2.2-4.2); Glucose 82 mg/dL (74-106); Potassium 3.6 mmol/L (3.5-5.1); Protein, Total 6.4 g/dL (6.4-8.2); Sodium Level 143 mmol/L (136-145)
[2023-01-23 08:21] LABS: PTHIN 95.7 pg/mL (18.4-80.1)
--- NOTE | 2023-01-23 08:23 | PCM.PN.HOSP ---
Reason for Visit Reason for Visit: Diagnoses Unspecified glaucoma (01/22/23) Essential (primary) hypertension (01/22/23) Chronic obstructive pulmonary disease, unspecified (01/22/23) Chronic kidney disease, stage 3 (moderate) (01/22/23) Weakness (01/22/23) Presence of aortocoronary bypass graft (01/22/23) Subjective Subjective Follow-up generalized weakness and LANDON on CKD. Today primarily feels tired and feels roughly the same as she did yesterday Objective Data Objective Data Vital Signs: Vital Signs Temp Pulse Resp BP Pulse Ox O2 Del Method 97.5 F L 69 18 160/90 H 92 Room Air 01/23/23 04:31 01/23/23 04:31 01/23/23 04:31 01/23/23 04:31 01/23/23 07:26 01/23/23 07:26 Oxygen Delivery Method Room Air Weight: 85.6 kg Body Mass Index (BMI) 32.3 Intake & Output: Intake and Output for Last 24 Hours 01/21/23 01/22/23 01/23/23 23:59 23:59 23:59 Intake Total 660 / 660 120 / 120 Balance 660 / 660 120 / 120 Lab / Micro Data Result Diagrams: 01/23/23 04:53 01/23/23 04:53 Labs: Laboratory Results - last 24 hr 01/22/23 10:05: WBC 9.5, RBC 3.92 L, Hgb 13.8, Hct 43.3, MCV 110.5 H, MCH 35.2 H, MCHC 31.9 L, RDW Std Deviation 59.0 H, RDW Coeff of Alexandra 14.5, Plt Count 165, MPV 11.9, Immature Gran % (Auto) 0.900, Neut % (Auto) 61.4, Lymph % (Auto) 26.7, [place] % (Auto) 10.2 H, Eos % (Auto) 0.5, Baso % (Auto) 0.3, Absolute Neuts (auto) 5.8, Absolute Lymphs (auto) 2.53, Nucleated RBC % 0 01/22/23 10:05: Sodium 140, Potassium 3.8, Chloride 107, Carbon Dioxide 26.0, Anion Gap 7, BUN 26 H, Creatinine 1.41 H, Estim Creat Clear Calc 27.02, Est GFR (MDRD) Af Amer 46 L, Est GFR (MDRD) Non-Af 38 L, BUN/Creatinine Ratio 18.4, Glucose 116 H, Calcium 10.0 01/22/23 10:05: Troponin I High Sens 20 01/22/23 10:05: B-Natriuretic Peptide 377.5 H 01/22/23 10:05: Phosphorus 3.8, Magnesium 2.4, Iron 92, TIBC 332, Iron Saturation 27.7, Total Bilirubin 0.50, Direct Bilirubin 0.13, AST 39 H, ALT 44, Alkaline Phosphatase 86, Total Creatine Kinase 88, C-React Prot Ext Range < 2.90, Total Protein 7.4, Albumin 3.8, Globulin 3.6, TSH 1.47 01/22/23 10:05: Lactate Dehydrogenase 295 H 01/22/23 11:15: Urine Color Yellow, Urine Clarity Sl. Cloudy, Urine pH 6.5, Ur Specific Ch[place] 1.010, Urine Protein 30 H, Urine Glucose (UA) Normal, Urine Ketones Negative, Urine Occult Blood Negative, Urine Nitrite Negative, Urine Bilirubin Negative, Urine Urobilinogen Normal, Ur Leukocyte Esterase 25 H, Urine RBC 0 SEEN, Urine WBC 0-5 SEEN, Ur Squamous Epith Cells 0-5 SEEN, Urine Bacteria 0 SEEN, Urine Mucus 0 SEEN 01/22/23 11:45: D-Dimer Quant (PE/DVT) 1.13 H* 01/22/23 11:45: Fibrinogen 540 H 01/22/23 15:45: ESR 19, Retic Count 2.31 H, Immature Retic Fraction 28.10 H, Retic Hgb Equivalent 37.4 H 01/22/23 15:45: Vitamin D 25-Hydroxy 65.0, Procalcitonin < 0.04 01/22/23 15:45: Vitamin B12 800 01/23/23 04:53: WBC 8.8, RBC 3.61 L, Hgb 12.6, Hct 39.7, MCV 110.0 H, MCH 34.9 H, MCHC 31.7 L, RDW Std Deviation 58.1 H, RDW Coeff of Alexandra 14.3, Plt Count 165, MPV 11.8, Immature Gran % (Auto) 0.800, Neut % (Auto) 60.5, Lymph % (Auto) 25.3, [place] % (Auto) 11.0 H, Eos % (Auto) 1.9, Baso % (Auto) 0.5, Absolute Neuts (auto) 5.4, Absolute Lymphs (auto) 2.23, Nucleated RBC % 0 01/23/23 04:53: Sodium 143, Potassium 3.6, Chloride 109 H, Carbon Dioxide 27.0, Anion Gap 7, BUN 29 H, Creatinine 1.26 H, Estim Creat Clear Calc 30.24, Est GFR (MDRD) Af Amer 52 L, Est GFR (MDRD) Non-Af 43 L, BUN/Creatinine Ratio 23.0 H, Glucose 82, Calcium 9.5, Ferritin 55, Total Bilirubin 0.40, AST 31, ALT 41, Alkaline Phosphatase 80, Total Protein 6.4, Albumin 3.3, Globulin 3.1, Albumin/Globulin Ratio 1.1 01/23/23 04:53: PTH Intact 95.7 H Micro: Microbiology 01/22/23 16:35 Mucosa - Nose Respiratory Panel (PCR) - Final 01/22/23 10:05 Nasal Secretion SARS-CoV-2 Antigen (Rapid) - Final Radiography Diagnostic Testing: Radiology Impression Chest X-Ray 01/22/23 11:14 IMPRESSION: No acute abnormality is seen. Electronically Signed: Per Lama MD at 11:57 EDT , Chest CTA 01/22/23 12:08 IMPRESSION: No evidence of pulmonary embolism. Findings suggestive of atelectasis superimposed on bibasilar scarring. Calcified granulomas. Electronically Signed: Per Lama MD at 13:00 EDT , Brain CT 01/22/23 12:09 IMPRESSION: Chronic involutional changes of the brain. Stable examination. Electronically Signed: Per Lama MD at 12:56 EDT , Cervical Spine CT 01/22/23 12:09 IMPRESSION: Multilevel degenerative changes, as described above. Stable examination. Electronically Signed: Per Lama MD at 12:58 EDT , Physical Exam Narrative General: Alert, oriented, appears tired HEENT: Atraumatic, normocephalic Eyes: Anicteric, normal conjunctiva, extraocular movements grossly intact Neck: Supple Respiratory: Somewhat diminished bilaterally, normal respiratory effort Cardiovascular: Regular rate and rhythm GI: Soft, nontender, nondistended Extremities: No edema Musculoskeletal: Moving all extremities Neuro: No overt focal neurological deficits Skin: No rashes appreciated Psych: Cooperative Assessment & Plan Assessment/Plan (1) Weakness: (2) COLD (chronic obstructive lung disease): (3) History of coronary artery bypass surgery: (4) Essential hypertension: (5) Glaucoma: (6) CKD (chronic kidney disease) stage 3, GFR 30-59 ml/min: PLAN: Plan #Weakness and falls -Could possibly be due to underlying infection -Additionally has elevated MCV- we will check B12 -Vitamin D within normal limits -Unclear reason for increased RDW and retic count, iron panel within normal limits, no signs or symptoms of bleeding -Not anemic at present though LDH elevated, haptoglobin pending, and bilirubin within normal limits with no other signs of hemolysis -This in combination with fibrinogen and D-dimer may all be due to underlying infection though Pro-Abad inflammatory markers are benign -Decrease gabapentin -PT/OT -6/: CK was within normal limits, lab work-up fairly unremarkable. Calcium was on the upper end of normal yesterday however today is 9.5 and with normal albumin is not elevated but does have slightly elevated PTH though this may be due to CKD given normal Phos and vitamin D, this can be repeated on an outpatient basis. Awaiting blood cultures though with lab work-up doubt that they will still be positive. Did discuss that she has been having somewhat hard time with her progressively worsened mobility and medical problems and discussed that if no other abnormalities found by the end of the work-up may consider medication for mood as sometimes depression can manifest similar to this especially in addition to her COPD and coronary artery disease. Did discuss reason for decreasing gabapentin and she verbalized understanding. #Strep mitis bacteremia -1 out of 2 cultures from 01/17 -Presently 1 has resulted strep mitis with the other still pending -We will repeat cultures and obtain echo -If repeat cultures positive may need MILDRED or further evaluation -Vanc -01/23: Repeat blood cultures pending #LANDON on ckd IIIb -Possibly somewhat dehydrated -Given elevated BNP hesitant to give significant amount of fluids so will hydrate judiciously and slowly, monitor I's and O's and daily weights -01/23: Improved somewhat today #COPD -Had PFTs 09/22/22: Irreversible moderately severe large airways obstructive ventilatory defect with a symmetric reduction diffusing capacity, resulting in air trapping -Does not seem to be in exacerbation, continue nebs -Had been discharged on 20 mg of prednisone, briefly went up to 40 on admission but symptoms remain the same, go back down to 20 for several more days and will likely be able to discontinue this if it is not a chronic medication #Chronic HFpEF -Echo 10/07/22 with segmental dysfunction, RVSP 44 mmHg with stage II diastolic dysfunction and preserved EF -Repeat limited echo given increased fatigue 01/23 demonstrated EF of 45% with some mild global left ventricular systolic dysfunction with enlargement of the left atrium which was noted previously but possibly somewhat worse and redemonstrated moderate focal mitral calcification of the posterior leaflet #CAD s/p CABG 1999 -CABG x2- TINOCO-LAD, Rt Radial graft-PDA 08/10/00 -Had left heart cath 11/05/2021 with some plaque noted but no intervention warranted and medical therapy advised at that time -Follows at the [place] cardiology office, previously saw Dr. Dailey #HTN -Continue home medication #DVT ppx: Lovenox subq Erlinda Herndon MD Time spent in the patient's overall evaluation,decision-making process, review of diagnostic data, adjustment of management, discussion with other providers, nursing nursing and ancillary staff involved in patient's care documentation, 40 Minutes Charges/Coding Visit Charges Inpatient E&M: 67394 Subs Hosp L3
[2023-01-23] MEDS: Allopurinol 100 MG Tablet 200 MG PO (08:54)
[2023-01-23] MEDS: predniSONE 20 MG Tablet 40 MG PO (08:55)
[2023-01-23] MEDS: Sertraline 50 MG Tablet PO (08:55)
[2023-01-23] MEDS: Aspirin E.C. 81 MG Tablet PO (08:55)
[2023-01-23] MEDS: Multivitamin (Healthy Eyes) Capsule 1 CAP PO ×2 (08:55→17:44)
[2023-01-23] MEDS: Folic Acid 1 MG Tablet 2 MG PO (08:55)
[2023-01-23] MEDS: Gabapentin 100 MG Capsule 200 MG PO ×2 (08:56→22:30)
[2023-01-23] MEDS: Enoxaparin 30 MG/0.3 ML Syringe SC (08:56)
[2023-01-23] MEDS: Clopidogrel Bisulfate 75 MG Tablet PO (08:56)
[2023-01-23] MEDS: BRIMONIDINE 0.2% 5ML BOTTLE 2 DRP OPHTHALMIC (08:56)
--- NOTE | 2023-01-23 10:00 | CASEMGMT ---
SW let patient and her daughter know that SW is waiting to hear from TCU as to whether or not they can take patient. Jenn White SPRAGGER KAYLYN
--- NOTE | 2023-01-23 13:13 | CASEMGMT ---
TCU is able to take patient. KAHLIL asked Nell to start the pre-cert. KAHLIL notified patient that TCU can take her pending insurance approval. KAHLIL let patient know this could take a day or two. Plan: d/c to [facility] pending insurance approval. Jenn PATIÑO
[2023-01-23] MEDS: Ensure Plus High Protein 120 ML LIQUID PO ×2 (17:44→22:31)
[2023-01-23] MEDS: 0.9% Saline Lock 10 ML Syringe IV (17:45)
[2023-01-23] MEDS: Latanoprost 0.005% 1 Bottle 1 DRP OPHTHALMIC (22:31)
[2023-01-23] MEDS: Atorvastatin Calcium 10 MG Tablet PO (22:31)
[2023-01-24] MEDS: Acetaminophen 325 MG Tablet 650 MG PO (02:46)
[2023-01-24 02:56] VITALS: BP 187/73; PULSE 68; RESP 18; TEMP 36.8; O2SAT 96
[2023-01-24 03:04] VITALS: BMI 32.9
[2023-01-24] MEDS: Lisinopril 10 MG Tablet PO (03:18)
[2023-01-24] MEDS: Isosorbide Mononitrate 60 MG Tablet PO ×2 (03:18→22:14)
[2023-01-24 06:37] VITALS: BP 143/77; PULSE 68; RESP 18; TEMP 36.4; O2SAT 97
[2023-01-24 06:39] LABS: Absolute Lymphocyte Count 2.07 X10^3/uL (0.83-4.51); Absolute Neutrophil Count 7.1 X10^3/uL (2.0-7.7); Basophil# 0.03 X10^3/uL; Basophil% 0.3 % (0-1); Eosinophil# 0.05 X10^3/uL; Eosinophils% 0.5 % (0-5); Hematocrit 36.7 % (37-47); Hemoglobin 11.9 g/dL (12.0-15.0); Lymphocyte # 2.07 X10^3/ul (0.83-4.51); Lymphocyte % 19.8 % (19-41); Mean Corp Hgb Conc 32.4 g/dL (32-36); Mean Corpuscular Hgb 35.4 pg (27.0-32.0); Mean Corpuscular Volume 109.2 fL (81-99); Mean Platelet Vol. 11.8 fl (6.2-12.0); Monocyte# 1.17 X10^3/uL; Monocyte% 11.2 % (0-10); NRBC Flagged by Analyzer 0 % (0-5); Neutrophil # 7.07 X10^3/uL (2.7-7.7); Neutrophil % 67.4 % (47-70); Platelet Count 161 K/mm3 (150-450); RBC Distribution Width CV 14.5 % (11.6-14.6); RBC Distribution Width SD 57.8 fl (35.1-43.9); Red Blood Count 3.36 M/mm3 (4.2-5.4); White Blood Count 10.5 K/mm3 (4.4-11.0)
[2023-01-24 07:03] LABS: AST(SGOT) 22 U/L (15-37); Alanine Aminotransfer ALT/SGPT 32 U/L (13-56); Alkaline Phosphatase 81 U/L (45-117); Anion Gap 4 (5-15); BUN 38 mg/dL (7-18); BUN/Creat Ratio 30.4 RATIO (10-20); Calcium,Total 9.6 mg/dL (8.5-10.1); Chloride 108 mmol/L (98-107); Creatinine, Serum 1.25 mg/dL (0.55-1.02); EST Glomerular Filtration Rate 44 mL/min (>60); Est Glom Filt Rate - Afr Amer 53 mL/min (>60); Estimated Creatinine Clearance 30.48 ml/min; Glucose 100 mg/dL (74-106); Potassium 3.9 mmol/L (3.5-5.1); Sodium Level 142 mmol/L (136-145)
--- NOTE | 2023-01-24 07:23 | PN.HOSP_ITS ---
Reason for Visit Reason for Visit: Diagnoses Unspecified glaucoma (01/22/23) Essential (primary) hypertension (01/22/23) Chronic obstructive pulmonary disease, unspecified (01/22/23) Chronic kidney disease, stage 3 (moderate) (01/22/23) Weakness (01/22/23) Presence of aortocoronary bypass graft (01/22/23) Subjective Subjective Sitting up in chair, got slightly confused overnight but sounds as though she was reoriented. Feeling slightly better today than yesterday, patient unclear as to why Objective Data Objective Data Vital Signs: Vital Signs Temp Pulse Resp BP Pulse Ox O2 Del Method 97.5 F L 68 18 143/77 H 97 Room Air 01/24/23 06:37 01/24/23 06:37 01/24/23 06:37 01/24/23 06:37 01/24/23 06:37 01/24/23 06:37 Oxygen Delivery Method Room Air Weight: 87 kg Body Mass Index (BMI) 32.9 Intake & Output: Intake and Output for Last 24 Hours 01/22/23 01/23/23 01/24/23 23:59 23:59 23:59 Intake Total 660 / 660 2395 / 2395 Balance 660 / 660 2395 / 2395 Lab / Micro Data Result Diagrams: 01/24/23 05:42 01/24/23 05:42 Labs: Laboratory Results - last 24 hr 01/23/23 04:53: PTH Intact 95.7 H 01/24/23 05:42: WBC 10.5, RBC 3.36 L, Hgb 11.9 L, Hct 36.7 L, MCV 109.2 H, MCH 35.4 H, MCHC 32.4, RDW Std Deviation 57.8 H, RDW Coeff of Alexandra 14.5, Plt Count 161, MPV 11.8, Immature Gran % (Auto) 0.800, Neut % (Auto) 67.4, Lymph % (Auto) 19.8, [place] % (Auto) 11.2 H, Eos % (Auto) 0.5, Baso % (Auto) 0.3, Absolute Neuts (auto) 7.1, Absolute Lymphs (auto) 2.07, Nucleated RBC % 0 01/24/23 05:42: Sodium 142, Potassium 3.9, Chloride 108 H, Carbon Dioxide 30.0, Anion Gap 4 L, BUN 38 H, Creatinine 1.25 H, Estim Creat Clear Calc 30.48, Est GFR (MDRD) Af Amer 53 L, Est GFR (MDRD) Non-Af 44 L, BUN/Creatinine Ratio 30.4 H , Glucose 100, Calcium 9.6, Total Bilirubin 0.30, AST 22, ALT 32, Alkaline Phosphatase 81, Total Protein 6.0 L, Albumin 3.0 L, Globulin 3.0, Albumin/Globulin Ratio 1.0 Micro: Microbiology 01/22/23 16:35 Mucosa - Nose Respiratory Panel (PCR) - Final 01/22/23 10:05 Nasal Secretion SARS-CoV-2 Antigen (Rapid) - Final Radiography Diagnostic Testing: Radiology Impression Echocardiogram 01/22/23 13:34 Interpretation Summary The left ventricular ejection fraction is 45 %. Mild global left ventricular systolic dysfunction. The left atrium is severely enlarged. Moderate focal mitral valve calcification of the posterior leaflet. Ordering Physician: Erlinda Herndon Referring Physician: Steffany Rose M.D. Performed By: Emili Soares RCS Physical Exam Narrative General: Alert, oriented, sitting up in chair HEENT: Atraumatic, normocephalic Eyes: Anicteric, normal conjunctiva, extraocular movements grossly intact Neck: Supple Respiratory: Somewhat diminished bilaterally, normal respiratory effort Cardiovascular: Regular rate and rhythm GI: Soft, nontender, nondistended Extremities: No edema Musculoskeletal: Moving all extremities Neuro: No overt focal neurological deficits Skin: No rashes appreciated Psych: Cooperative Assessment & Plan Assessment/Plan (1) Weakness: (2) COLD (chronic obstructive lung disease): (3) History of coronary artery bypass surgery: (4) Essential hypertension: (5) Glaucoma: (6) CKD (chronic kidney disease) stage 3, GFR 30-59 ml/min: PLAN: Plan #Weakness and falls -Could possibly be due to underlying infection -Additionally has elevated MCV- we will check B12 -Vitamin D within normal limits -Unclear reason for increased RDW and retic count, iron panel within normal limits, no signs or symptoms of bleeding -Not anemic at present though LDH elevated, haptoglobin pending, and bilirubin within normal limits with no other signs of hemolysis -This in combination with fibrinogen and D-dimer may all be due to underlying infection though Pro-Abad inflammatory markers are benign -Decrease gabapentin -PT/OT -01/23: CK was within normal limits, lab work-up fairly unremarkable. Calcium was on the upper end of normal yesterday however today is 9.5 and with normal albumin is not elevated but does have slightly elevated PTH though this may be due to CKD given normal Phos and vitamin D, this can be repeated on an outpatient basis. Awaiting blood cultures though with lab work-up doubt that they will still be positive. Did discuss that she has been having somewhat hard time with her progressively worsened mobility and medical problems and discussed that if no other abnormalities found by the end of the work-up may consider medication for mood as sometimes depression can manifest similar to this especially in addition to her COPD and coronary artery disease. Did discuss re ason for decreasing gabapentin and she verbalized understanding. -01/24: Appears to feel slightly better today, continue to increase dose of Zoloft. We will add melatonin nightly to help with sleep and hopefully decrease delirium. Awaiting pre-CERT for placement #Strep mitis bacteremia -1 out of 2 cultures from 01/17 -Presently 1 has resulted strep mitis with the other still pending -We will repeat cultures and obtain echo -If repeat cultures positive may need MILDRED or further evaluation -Vanc -01/23: Repeat blood cultures pending -01/24: Cultures no growth to date #LANDON on ckd IIIb -Possibly somewhat dehydrated -Given elevated BNP hesitant to give significant amount of fluids so will hydrate judiciously and slowly, monitor I's and O's and daily weights -01/23: Improved somewhat today #COPD -Had PFTs 09/22/22: Irreversible moderately severe large airways obstructive ventilatory defect with a symmetric reduction diffusing capacity, resulting in air trapping -Does not seem to be in exacerbation, continue nebs -Had been discharged on 20 mg of prednisone, briefly went up to 40 on admission but symptoms remain the same, go back down to 20 for several more days and will likely be able to discontinue this if it is not a chronic medication -01/24: We will taper off prednisone, appears this was not a chronic medication #Chronic HFpEF -Echo 10/07/22 with segmental dysfunction, RVSP 44 mmHg with stage II diastolic dysfunction and preserved EF -Repeat limited echo given increased fatigue 01/23 demonstrated EF of 45% with some mild global left ventricular systolic dysfunction with enlargement of the left atrium which was noted previously but possibly somewhat worse and redemonstrated moderate focal mitral calcification of the posterior leaflet #CAD s/p CABG 1999 -CABG x2- TINOCO-LAD, Rt Radial graft-PDA 08/10/00 -Had left heart cath 11/05/2021 with some plaque noted but no intervention luisa lemus and medical therapy advised at that time -Follows at the [place] cardiology office, previously saw Dr. Dailey #HTN -Continue home medication #DVT ppx: Lovenox subq Erlinda Herndon MD Time spent in the patient's overall evaluation,decision-making process, review of diagnostic data, adjustment of management, discussion with other providers, nursing nursing and ancillary staff involved in patient's care documentation, 30 Minutes Charges/Coding Visit Charges Inpatient E&M: 98574 Subs Hosp L2
[2023-01-24 09:36] VITALS: BP 139/55; PULSE 57; RESP 17; TEMP 36.8; O2SAT 94
[2023-01-24] MEDS: BRIMONIDINE 0.2% 5ML BOTTLE 2 DRP OPHTHALMIC (09:40)
[2023-01-24] MEDS: NETARSUDIL MESYLATE 1 DRP OPHTHALMIC (09:41)
[2023-01-24] MEDS: Clopidogrel Bisulfate 75 MG Tablet PO (09:42)
[2023-01-24] MEDS: Aspirin E.C. 81 MG Tablet PO (09:42)
[2023-01-24] MEDS: Multivitamin (Healthy Eyes) Capsule 1 CAP PO ×2 (09:42→18:00)
[2023-01-24] MEDS: Allopurinol 100 MG Tablet 200 MG PO (09:42)
[2023-01-24] MEDS: Gabapentin 100 MG Capsule 200 MG PO ×2 (09:42→22:19)
[2023-01-24] MEDS: Folic Acid 1 MG Tablet 2 MG PO (09:42)
[2023-01-24] MEDS: Enoxaparin 30 MG/0.3 ML Syringe SC (09:43)
[2023-01-24] MEDS: Sertraline 50 MG Tablet 75 MG PO (09:43)
[2023-01-24] MEDS: Ensure Plus High Protein 120 ML LIQUID PO ×3 (09:44→22:19)
[2023-01-24] MEDS: 0.9% Normal Saline 1,000 ML 50 ML IV (09:47)
--- NOTE | 2023-01-24 13:00 | CASEMGMT ---
Social Work Advanced directives verified. Copies found in converted Echart. Copies made and placed onto paper chart for scanning into current EMR. -HEBER Callejas, SAP TRAINER
[2023-01-24 15:32] VITALS: BP 145/65; PULSE 60; RESP 17; TEMP 36.8; O2SAT 94
[2023-01-24 16:40] VITALS: O2SAT 98
[2023-01-24 17:45] LABS: Vancomycin, Trough Level 18.5 ug/mL (5.0-15.0)
--- NOTE | 2023-01-24 18:17 | PCM.RX.CS ---
Consult Pharmacy has been consulted to manage selected antiobiotic: Vancomycin Type of Consult: Follow-up Prior Doses of Antibiotics Received/Current Regimen: current dose is vanc 1250mg IV q24h Labs: Sodium 142 mmol/L (136-145) 01/24/23 05:42 Potassium 3.9 mmol/L (3.5-5.1) 01/24/23 05:42 Chloride 108 mmol/L (98-107) H 01/24/23 05:42 Carbon Dioxide 30.0 mmol/L (21.0-32.0) 01/24/23 05:42 Anion Gap 4 (5-15) L 01/24/23 05:42 BUN 38 mg/dL (7-18) H 01/24/23 05:42 Creatinine 1.25 mg/dL (0.55-1.02) H 01/24/23 05:42 Est GFR (MDRD) Af Amer 53 mL/min (>60) L 01/24/23 05:42 Est GFR (MDRD) Non-Af 44 mL/min (>60) L 01/24/23 05:42 BUN/Creatinine Ratio 30.4 RATIO (10-20) H 01/24/23 05:42 Glucose 100 mg/dL (74-106) 01/24/23 05:42 Vancomycin Trough 18.5 ug/mL (5.0-15.0) H 01/24/23 16:55 Microbiology: Microbiology 01/22/23 15:45 Blood Culture (Wb) - Anticubital Right Blood Culture - Preliminary No growth in 48 hours. 01/22/23 15:50 Blood Culture (Wb) - Right Hand Blood Culture - Preliminary No growth in 48 hours. 01/22/23 16:35 Mucosa - Nose Respiratory Panel (PCR) - Final 01/22/23 10:05 Nasal Secretion SARS-CoV-2 Antigen (Rapid) - Final Weight used for dosin kg Estimated Creatinine Clearance: 37.7ml/min Goal Trough: 15-20 mcg/mL Pharmacy Plan for Drug Dosing: The vanc trough drawn at 16:55 today (approx 23 hours after the previous dose) was 18.5. This is within goal so will keep same dose. Repeat a trough in 2 days per protocol. The patient's SCr has improved to 1.25 today from 1.41 two days ago. The patient's CrCl of 37.7ml/min was calculated using an adjusted body weight. Pharmacy Service will continue to monitor and adjust dosing as required. Follow-Up Labs: Trough Vancomycin Labs to be done on [date and time ordered]: 01/26/23 17:00
[2023-01-24] MEDS: MELATONIN 10 MG TABLET PO (22:13)
[2023-01-24] MEDS: Atorvastatin Calcium 10 MG Tablet PO (22:14)
[2023-01-24] MEDS: Latanoprost 0.005% 1 Bottle 1 DRP OPHTHALMIC (22:15)
[2023-01-24 22:24] VITALS: BP 190/79; PULSE 70; RESP 16; TEMP 36.4; O2SAT 93
[2023-01-25] VITALS (9 sets, daily range): BP systolic 106–182; BP diastolic 50–74; PULSE 55–74; RESP 16–18; TEMP 36.4–36.7; O2SAT 92–96; BMI 33.3
[2023-01-25] MEDS: hydrALAZINE 20 MG/ML Vial 10 MG IV (00:43)
[2023-01-25 07:02] LABS: Absolute Lymphocyte Count 2.28 X10^3/uL (0.83-4.51); Absolute Neutrophil Count 6.5 X10^3/uL (2.0-7.7); Basophil# 0.05 X10^3/uL; Basophil% 0.5 % (0-1); Eosinophil# 0.22 X10^3/uL; Eosinophils% 2.1 % (0-5); Hematocrit 38.3 % (37-47); Hemoglobin 12.3 g/dL (12.0-15.0); Lymphocyte # 2.28 X10^3/ul (0.83-4.51); Lymphocyte % 22.1 % (19-41); Mean Corp Hgb Conc 32.1 g/dL (32-36); Mean Corpuscular Hgb 35.3 pg (27.0-32.0); Mean Corpuscular Volume 110.1 fL (81-99); Mean Platelet Vol. 11.6 fl (6.2-12.0); Monocyte# 1.13 X10^3/uL; NRBC Flagged by Analyzer 0 % (0-5); Neutrophil # 6.54 X10^3/uL (2.7-7.7); Neutrophil % 63.5 % (47-70); Platelet Count 149 K/mm3 (150-450); RBC Distribution Width CV 14.6 % (11.6-14.6); RBC Distribution Width SD 58.9 fl (35.1-43.9); Red Blood Count 3.48 M/mm3 (4.2-5.4); White Blood Count 10.3 K/mm3 (4.4-11.0)
--- NOTE | 2023-01-25 07:24 | PCM.PN.HOSP ---
Reason for Visit Reason for Visit: Diagnoses Unspecified glaucoma (01/22/23) Essential (primary) hypertension (01/22/23) Chronic obstructive pulmonary disease, unspecified (01/22/23) Chronic kidney disease, stage 3 (moderate) (01/22/23) Weakness (01/22/23) Presence of aortocoronary bypass graft (01/22/23) Subjective Subjective Still feels somewhat tired and generally weak but better overall Objective Data Objective Data Vital Signs: Vital Signs Temp Pulse Resp BP Pulse Ox O2 Del Method 97.5 F L 67 16 139/53 H 92 Room Air 01/25/23 04:09 01/25/23 04:09 01/25/23 04:09 01/25/23 04:09 01/25/23 04:09 01/25/23 05:13 Oxygen Delivery Method Room Air Weight: 88 kg Body Mass Index (BMI) 33.3 Intake & Output: Intake and Output for Last 24 Hours 01/23/23 01/24/23 01/25/23 23:59 23:59 23:59 Intake Total 2395 / 2395 1686.67 / 1886.67 200 / 200 Balance 2395 / 2395 1686.67 / 1886.67 200 / 200 Lab / Micro Data Result Diagrams: 01/25/23 06:46 01/25/23 06:46 Labs: Laboratory Results - last 24 hr 01/24/23 16:55: Vancomycin Trough 18.5 H 01/25/23 06:46: WBC 10.3, RBC 3.48 L, Hgb 12.3, Hct 38.3, MCV 110.1 H, MCH 35.3 H, MCHC 32.1, RDW Std Deviation 58.9 H, RDW Coeff of Alexandra 14.6, Plt Count 149 L, MPV 11.6, Immature Gran % (Auto) 0.800, Neut % (Auto) 63.5, Lymph % (Auto) 22.1, [place] % (Auto) 11.0 H, Eos % (Auto) 2.1, Baso % (Auto) 0.5, Absolute Neuts (auto) 6.5, Absolute Lymphs (auto) 2.28, Nucleated RBC % 0 Micro: Microbiology 01/22/23 15:45 Blood Culture (Wb) - Anticubital Right Blood Culture - Preliminary No growth in 48 hours. 01/22/23 15:50 Blood Culture (Wb) - Right Hand Blood Culture - Preliminary No growth in 48 hours. 01/22/23 16:35 Mucosa - Nose Respiratory Panel (PCR) - Final 01/22/23 10:05 Nasal Secretion SARS-CoV-2 Antigen (Rapid) - Final Physical Exam Narrative General: Alert, oriented, no acute distress HEENT: Atraumatic, normocephalic Eyes: Anicteric, normal conjunctiva, extraocular movements grossly intact Neck: Supple Respiratory: Normal respiratory effort Cardiovascular: Regular rate GI: Soft, nontender, nondistended Extremities: No edema Musculoskeletal: Moving all extremities Neuro: No overt focal neurological deficits Skin: No rashes appreciated Psych: Cooperative Assessment & Plan Assessment/Plan (1) Weakness: (2) COLD (chronic obstructive lung disease): (3) History of coronary artery bypass surgery: (4) Essential hypertension: (5) Glaucoma: (6) CKD (chronic kidney disease) stage 3, GFR 30-59 ml/min: PLAN: Plan #Weakness and falls -Could possibly be due to underlying infection -Additionally has elevated MCV- we will check B12 -Vitamin D within normal limits -Unclear reason for increased RDW and retic count, iron panel within normal limits, no signs or symptoms of bleeding -Not anemic at present though LDH elevated, haptoglobin pending, and bilirubin within normal limits with no other signs of hemolysis -This in combination with fibrinogen and D-dimer may all be due to underlying infection though Pro-Abad inflammatory markers are benign -Decrease gabapentin -PT/OT -01/23: CK was within normal limits, lab work-up fairly unremarkable. Calcium was on the upper end of normal yesterday however today is 9.5 and with normal albumin is not elevated but does have slightly elevated PTH though this may be due to CKD given normal Phos and vitamin D, this can be repeated on an outpatient basis. Awaiting blood cultures though with lab work-up doubt that they will still be positive. Did discuss that she has been having somewhat hard time with her progressively worsened mobility and medical problems and discussed that if no other abnormalities found by the end of the work-up may consider medication for mood as sometimes depression can manifest similar to this especially in addition to her COPD and coronary artery disease. Did discuss reason for decreasing gabapentin and she verbalized understanding. -01/24: Appears to feel slightly better today, continue to increase dose of Zoloft. We will add melatonin nightly to help with sleep and hopefully decrease delirium. Awaiting pre-CERT for placement -01/25: Suspect multifactorial with recent infection and hospitalization along with possible component of mood/depression. Resolved has been increased and can continue to be titrated as an outpatient awaiting placement #Strep mitis bacteremia -1 out of 2 cultures from 01/17 -Presently 1 has resulted strep mitis with the other still pending -We will repeat cultures and obtain echo -If repeat cultures positive may need MILDRED or further evaluation -Vanc -01/23: Repeat blood cultures pending -01/24: Cultures no growth to date -01/25: Today is day 9 of antibiotic therapy, podiatry original cultures positive and repeat cultures negative. Patient is over a week of treatment with no further symptoms, will DC antibiotics as patient has received adequate treatment course #LANDON on ckd IIIb -Possibly somewhat dehydrated -Given elevated BNP hesitant to give significant amount of fluids so will hydrate judiciously and slowly, monitor I's and O's and daily weights -01/23: Improved somewhat today #COPD -Had PFTs 09/22/22: Irreversible moderately severe large airways obstructive ventilatory defect with a symmetric reduction diffusing capacity, resulting in air trapping -Does not seem to be in exacerbation, continue nebs -Had been discharged on 20 mg of prednisone, briefly went up to 40 on admission but symptoms remain the same, go back down to 20 for several more days and will likely be able to discontinue this if it is not a chronic medication -01/24: We will taper off prednisone, appears this was not a chronic medication #Chronic HFpEF -Echo 10/07/22 with segmental dysfunction, RVSP 44 mmHg with stage II diastolic dysfunction and preserved EF -Repeat limited echo given increased fatigue 01/23 demonstrated EF of 45% with some mild global left ventricular systolic dysfunction with enlargement of the left atrium which was noted previously but possibly somewhat worse and redemonstrated moderate focal mitral calcification of the posterior leaflet #CAD s/p CABG 1999 -CABG x2- TINOCO-LAD, Rt Radial graft-PDA 08/10/00 -Had left heart cath 11/05/2021 with some plaque noted but no intervention warranted and medical therapy advised at that time -Follows at the [place] cardiology office, previously saw Dr. Dailey #HTN -Continue home medication #DVT ppx: Lovenox subq Erlinda Herndon, MD Time spent in the patient's overall evaluation,decision-making process, review of diagnostic data, adjustment of management, discussion with other providers, nursing nursing and ancillary staff involved in patient's care documentation, 30 Minutes Charges/Coding Visit Charges Inpatient E&M: 58553 Subs Hosp L2
[2023-01-25 07:30] LABS: AST(SGOT) 23 U/L (15-37); Alanine Aminotransfer ALT/SGPT 35 U/L (13-56); Albumin, Serum 3.2 g/dL (3.2-5.0); Alkaline Phosphatase 88 U/L (45-117); Anion Gap 5 (5-15); BUN 45 mg/dL (7-18); BUN/Creat Ratio 40.9 RATIO (10-20); Calcium,Total 9.8 mg/dL (8.5-10.1); Chloride 107 mmol/L (98-107); EST Glomerular Filtration Rate 51 mL/min (>60); Est Glom Filt Rate - Afr Amer 61 mL/min (>60); Estimated Creatinine Clearance 34.64 ml/min; Globulin 3.1 g/dL (2.2-4.2); Glucose 97 mg/dL (74-106); Potassium 3.9 mmol/L (3.5-5.1); Protein, Total 6.3 g/dL (6.4-8.2); Sodium Level 141 mmol/L (136-145)
[2023-01-25] MEDS: Gabapentin 100 MG Capsule 200 MG PO ×2 (10:14→21:35)
[2023-01-25] MEDS: Sertraline 50 MG Tablet 75 MG PO (10:15)
[2023-01-25] MEDS: predniSONE 20 MG Tablet PO (10:15)
[2023-01-25] MEDS: Allopurinol 100 MG Tablet 200 MG PO (10:15)
[2023-01-25] MEDS: Aspirin E.C. 81 MG Tablet PO (10:16)
[2023-01-25] MEDS: Clopidogrel Bisulfate 75 MG Tablet PO (10:16)
[2023-01-25] MEDS: Multivitamin (Healthy Eyes) Capsule 1 CAP PO ×2 (10:16→17:16)
[2023-01-25] MEDS: Folic Acid 1 MG Tablet 2 MG PO (10:16)
[2023-01-25] MEDS: BRIMONIDINE 0.2% 5ML BOTTLE 2 DRP OPHTHALMIC (10:17)
[2023-01-25] MEDS: Isosorbide Mononitrate 60 MG Tablet PO ×2 (10:17→21:35)
[2023-01-25] MEDS: NETARSUDIL MESYLATE 1 DRP OPHTHALMIC (10:17)
[2023-01-25] MEDS: Enoxaparin 30 MG/0.3 ML Syringe SC (10:17)
[2023-01-25] MEDS: amLODIPine 2.5 MG Tablet PO (11:34)
[2023-01-25] MEDS: Lisinopril 20 MG Tablet PO (11:35)
[2023-01-25] MEDS: Ensure Plus High Protein 120 ML LIQUID PO ×2 (13:32→21:34)
[2023-01-25 14:23] LABS: Anion Gap 7 (5-15); BUN 43 mg/dL (7-18); BUN/Creat Ratio 34.7 RATIO (10-20); Calcium,Total 9.6 mg/dL (8.5-10.1); Chloride 108 mmol/L (98-107); Creatinine, Serum 1.24 mg/dL (0.55-1.02); EST Glomerular Filtration Rate 44 mL/min (>60); Est Glom Filt Rate - Afr Amer 53 mL/min (>60); Estimated Creatinine Clearance 30.73 ml/min; Glucose 150 mg/dL (74-106); Potassium 4.2 mmol/L (3.5-5.1); Sodium Level 141 mmol/L (136-145)
[2023-01-25 14:29] LABS: Magnesium 2.1 mg/dL (1.6-2.6); Phosphorus 4.1 mg/dL (2.5-4.9)
[2023-01-25] MEDS: MELATONIN 10 MG TABLET PO (21:35)
[2023-01-25] MEDS: Atorvastatin Calcium 10 MG Tablet PO (21:35)
[2023-01-25] MEDS: Latanoprost 0.005% 1 Bottle 1 DRP OPHTHALMIC (21:35)
[2023-01-26 03:14] VITALS: BP 134/65; PULSE 60; RESP 14; TEMP 36.4; O2SAT 93
[2023-01-26 05:52] VITALS: BMI 33.3
[2023-01-26 06:07] LABS: Absolute Lymphocyte Count 2.22 X10^3/uL (0.83-4.51); Absolute Neutrophil Count 7.6 X10^3/uL (2.0-7.7); Basophil# 0.03 X10^3/uL; Basophil% 0.3 % (0-1); Eosinophil# 0.13 X10^3/uL; Eosinophils% 1.2 % (0-5); Hematocrit 38.4 % (37-47); Hemoglobin 12.3 g/dL (12.0-15.0); Lymphocyte # 2.22 X10^3/ul (0.83-4.51); Lymphocyte % 19.8 % (19-41); Mean Corpuscular Hgb 35.2 pg (27.0-32.0); Mean Platelet Vol. 12.6 fl (6.2-12.0); Monocyte# 1.12 X10^3/uL; NRBC Flagged by Analyzer 0 % (0-5); Neutrophil # 7.63 X10^3/uL (2.7-7.7); Platelet Count 167 K/mm3 (150-450); RBC Distribution Width CV 14.7 % (11.6-14.6); RBC Distribution Width SD 59.2 fl (35.1-43.9); Red Blood Count 3.49 M/mm3 (4.2-5.4); White Blood Count 11.2 K/mm3 (4.4-11.0)
[2023-01-26 07:07] VITALS: O2SAT 97
[2023-01-26 07:12] LABS: ALB/GLOB Ratio 0.9 RATIO (0.9-2.4); AST(SGOT) 20 U/L (15-37); Alanine Aminotransfer ALT/SGPT 31 U/L (13-56); Alkaline Phosphatase 92 U/L (45-117); Anion Gap 9 (5-15); BUN 44 mg/dL (7-18); BUN/Creat Ratio 40.7 RATIO (10-20); Chloride 107 mmol/L (98-107); Creatinine, Serum 1.08 mg/dL (0.55-1.02); EST Glomerular Filtration Rate 52 mL/min (>60); Est Glom Filt Rate - Afr Amer 63 mL/min (>60); Estimated Creatinine Clearance 35.28 ml/min; Globulin 3.3 g/dL (2.2-4.2); Glucose 99 mg/dL (74-106); Potassium 4.1 mmol/L (3.5-5.1); Protein, Total 6.3 g/dL (6.4-8.2); Sodium Level 142 mmol/L (136-145)
[2023-01-26 10:41] VITALS: BP 121/49; PULSE 57; RESP 18; TEMP 37.1; O2SAT 96
[2023-01-26] MEDS: predniSONE 20 MG Tablet PO (10:47)
[2023-01-26] MEDS: Folic Acid 1 MG Tablet 2 MG PO (10:47)
[2023-01-26] MEDS: Clopidogrel Bisulfate 75 MG Tablet PO (10:47)
[2023-01-26] MEDS: Isosorbide Mononitrate 60 MG Tablet PO ×2 (10:47→20:41)
[2023-01-26] MEDS: Lisinopril 20 MG Tablet PO (10:47)
[2023-01-26] MEDS: amLODIPine 2.5 MG Tablet PO (10:47)
[2023-01-26] MEDS: Sertraline 50 MG Tablet 75 MG PO (10:47)
[2023-01-26] MEDS: Allopurinol 100 MG Tablet 200 MG PO (10:47)
[2023-01-26] MEDS: Multivitamin (Healthy Eyes) Capsule 1 CAP PO ×2 (10:48→17:28)
[2023-01-26] MEDS: NETARSUDIL MESYLATE 1 DRP OPHTHALMIC (10:48)
[2023-01-26] MEDS: Enoxaparin 30 MG/0.3 ML Syringe SC (10:48)
[2023-01-26] MEDS: Aspirin E.C. 81 MG Tablet PO (10:48)
[2023-01-26] MEDS: BRIMONIDINE 0.2% 5ML BOTTLE 2 DRP OPHTHALMIC (10:49)
[2023-01-26] MEDS: Gabapentin 100 MG Capsule 200 MG PO ×2 (10:52→20:41)
[2023-01-26] MEDS: Ensure Plus High Protein 120 ML LIQUID PO ×3 (10:55→20:40)
[2023-01-26 12:08] LABS: Haptoglobin 185 mg/dL (41-333)
--- NOTE | 2023-01-26 14:53 | CASEMGMT ---
Sw reached out to TCU admission coordinator to check on status of precert. At this time precert still pending. Padmini Worthington, [employer] CHIE[employer], [employer]
[2023-01-26 15:26] VITALS: BP 135/60; PULSE 82; RESP 16; TEMP 36.7; O2SAT 94
--- NOTE | 2023-01-26 15:35 | PCM.PN.HOSP ---
Reason for Visit Reason for Visit: Diagnoses Unspecified glaucoma (01/22/23) Essential (primary) hypertension (01/22/23) Chronic obstructive pulmonary disease, unspecified (01/22/23) Chronic kidney disease, stage 3 (moderate) (01/22/23) Weakness (01/22/23) Presence of aortocoronary bypass graft (01/22/23) Subjective Subjective Still feeling better than she had been, had some soreness on the lateral aspect of her right upper arm but only when she is doing strenuous movements and not on palpation or when she is sitting still Objective Data Objective Data Vital Signs: Vital Signs Temp Pulse Resp BP Pulse Ox O2 Del Method 98.1 F 82 16 135/60 H 94 Room Air 01/26/23 15:26 01/26/23 15:26 01/26/23 15:26 01/26/23 15:26 01/26/23 15:26 01/26/23 15:26 Oxygen Delivery Method Room Air Weight: 88 kg Body Mass Index (BMI) 33.3 Intake & Output: Intake and Output for Last 24 Hours 01/24/23 01/25/23 01/26/23 23:59 23:59 23:59 Intake Total 1686.67 / 1886.67 1700 / 1700 120 / 120 Output Total 500 / 500 250 / 250 Balance 1686.67 / 1886.67 1200 / 1200 -130 / -130 Lab / Micro Data Result Diagrams: 01/26/23 05:11 01/26/23 05:11 Labs: Laboratory Results - last 24 hr 01/22/23 15:45: Haptoglobin 185, Ionized Calcium 5.3 01/26/23 05:11: WBC 11.2 H, RBC 3.49 L, Hgb 12.3, Hct 38.4, MCV 110.0 H, MCH 35.2 H, MCHC 32.0, RDW Std Deviation 59.2 H, RDW Coeff of Alexandra 14.7 H, Plt Count 167, MPV 12.6 H, Immature Gran % (Auto) 0.700, Neut % (Auto) 68.0, Lymph % (Auto) 19.8, [place] % (Auto) 10.0, Eos % (Auto) 1.2, Baso % (Auto) 0.3, Absolute Neuts (auto) 7.6, Absolute Lymphs (auto) 2.22, Nucleated RBC % 0 01/26/23 05:11: Sodium 142, Potassium 4.1, Chloride 107, Carbon Dioxide 26.0, Anion Gap 9, BUN 44 H, Creatinine 1.08 H, Estim Creat Clear Calc 35.28, Est GFR (MDRD) Af Amer 63, Est GFR (MDRD) Non-Af 52 L, BUN/Creatinine Ratio 40.7 H, Glucose 99, Calcium 10.0, Total Bilirubin 0.30, AST 20, ALT 31, Alkaline Phosphatase 92, Total Protein 6.3 L, Albumin 3.0 L, Globulin 3.3, Albumin/Globulin Ratio 0.9 Micro: Microbiology 01/22/23 15:45 Blood Culture (Wb) - Anticubital Right Blood Culture - Preliminary No growth in 48 hours. 01/22/23 15:50 Blood Culture (Wb) - Right Hand Blood Culture - Preliminary No growth in 48 hours. 01/22/23 16:35 Mucosa - Nose Respiratory Panel (PCR) - Final 01/22/23 10:05 Nasal Secretion SARS-CoV-2 Antigen (Rapid) - Final Physical Exam Narrative General: Alert, oriented, no acute distress HEENT: Atraumatic, normocephalic Eyes: Anicteric, normal conjunctiva, extraocular movements grossly intact Neck: Supple Respiratory: Normal respiratory effort, slight wheezes Cardiovascular: Regular rate GI: Soft, nontender, nondistended Extremities: No edema Musculoskeletal: Moving all extremities Neuro: No overt focal neurological deficits Skin: No rashes appreciated Psych: Cooperative Assessment & Plan Assessment/Plan (1) Weakness: (2) COLD (chronic obstructive lung disease): (3) History of coronary artery bypass surgery: (4) Essential hypertension: (5) Glaucoma: (6) CKD (chronic kidney disease) stage 3, GFR 30-59 ml/min: PLAN: Plan #Weakness and falls -Could possibly be due to underlying infection -Additionally has elevated MCV- we will check B12 -Vitamin D within normal limits -Unclear reason for increased RDW and retic count, iron panel within normal limits, no signs or symptoms of bleeding -Not anemic at present though LDH elevated, haptoglobin pending, and bilirubin within normal limits with no other signs of hemolysis -This in combination with fibrinogen and D-dimer may all be due to underlying infection though Pro-Abad inflammatory markers are benign -Decrease gabapentin -PT/OT -6/2: CK was within normal limits, lab work-up fairly unremarkable. Calcium was on the upper end of normal yesterday however today is 9.5 and with normal albumin is not elevated but does have slightly elevated PTH though this may be due to CKD given normal Phos and vitamin D, this can be repeated on an outpatient basis. Awaiting blood cultures though with lab work-up doubt that they will still be positive. Did discuss that she has been having somewhat hard time with her progressively worsened mobility and medical problems and discussed that if no other abnormalities found by the end of the work-up may consider medication for mood as sometimes depression can manifest similar to this especially in addition to her COPD and coronary artery disease. Did discuss reason for decreasing gabapentin and she verbalized understanding. -01/24: Appears to feel slightly better today, continue to increase dose of Zoloft. We will add melatonin nightly to help with sleep and hopefully decrease delirium. Awaiting pre-CERT for placement -01/25: Suspect multifactorial with recent infection and hospitalization along with possible component of mood/depression. Resolved has been increased and can continue to be titrated as an outpatient awaiting placement -01/26: Awaiting placement #Strep mitis bacteremia -1 out of 2 cultures from 01/17 -Presently 1 has resulted strep mitis with the other still pending -We will repeat cultures and obtain echo -If repeat cultures positive may need MILDRED or further evaluation -Vanc -01/23: Repeat blood cultures pending -01/24: Cultures no growth to date -01/25: Today is day 9 of antibiotic therapy, podiatry original cultures positive and repeat cultures negative. Patient is over a week of treatment with no further symptoms, will DC antibiotics as patient has received adequate treatment course #LANDON on ckd IIIb -Possibly somewhat dehydrated -Given elevated BNP hesitant to give significant amount of fluids so will hydrate judiciously and slowly, monitor I's and O's and daily weights -01/23: Improved somewhat today #COPD -Had PFTs 09/22/22: Irreversible moderately severe large airways obstructive ventilatory defect with a symmetric reduction diffusing capacity, resulting in air trapping -Does not seem to be in exacerbation, continue nebs -Had been discharged on 20 mg of prednisone, briefly went up to 40 on admission but symptoms remain the same, go back down to 20 for several more days and will likely be able to discontinue this if it is not a chronic medication -01/24: We will taper off prednisone, appears this was not a chronic medication -01/26: Had been refusing nebs, will place on budesonide and LAMA #Chronic HFpEF -Echo 10/07/22 with segmental dysfunction, RVSP 44 mmHg with stage II diastolic dysfunction and preserved EF -Repeat limited echo given increased fatigue 01/23 demonstrated EF of 45% with some mild global left ventricular systolic dysfunction with enlargement of the left atrium which was noted previously but possibly somewhat worse and redemonstrated moderate focal mitral calcification of the posterior leaflet #CAD s/p CABG 1999 -CABG x2- TINOCO-LAD, Rt Radial graft-PDA 08/10/00 -Had left heart cath 11/05/2021 with some plaque noted but no intervention warranted and medical therapy advised at that time -Follows at the [place] cardiology office, previously saw Dr. Dailey #HTN -Continue home medication #DVT ppx: Lovenox subq Erlinda Herndon MD Time spent in the patient's overall evaluation,decision-making process, review of diagnostic data, adjustment of management, discussion with other providers, nursing nursing and ancillary staff involved in patient's care documentation, 30 Minutes Charges/Coding Visit Charges Inpatient E&M: 39438 Subs Hosp L2
[2023-01-26 20:09] VITALS: PULSE 60; RESP 16
[2023-01-26] MEDS: Ipratropium 0.5 MG/2.5 ML SOLUTION INHALATION (20:09)
[2023-01-26] MEDS: Budesonide Respules 0.5 MG/2 ML AMPUL.NEB. INHALATION (20:09)
[2023-01-26 20:37] VITALS: BP 169/67; PULSE 65; RESP 16; TEMP 36.1; O2SAT 98
[2023-01-26] MEDS: Atorvastatin Calcium 10 MG Tablet PO (20:41)
[2023-01-26] MEDS: MELATONIN 10 MG TABLET PO (20:41)
[2023-01-26] MEDS: Latanoprost 0.005% 1 Bottle 1 DRP OPHTHALMIC (20:42)
[2023-01-27 02:30] VITALS: BP 155/70
[2023-01-27 02:31] VITALS: BP 153/56; PULSE 67; RESP 16; TEMP 36.1; O2SAT 95
[2023-01-27 03:53] VITALS: BMI 33.2
[2023-01-27 06:50] LABS: Absolute Lymphocyte Count 2.22 X10^3/uL (0.83-4.51); Absolute Neutrophil Count 8.5 X10^3/uL (2.0-7.7); Basophil# 0.04 X10^3/uL; Basophil% 0.3 % (0-1); Eosinophil# 0.02 X10^3/uL; Eosinophils% 0.2 % (0-5); Hematocrit 36.4 % (37-47); Hemoglobin 11.6 g/dL (12.0-15.0); Lymphocyte # 2.22 X10^3/ul (0.83-4.51); Lymphocyte % 18.5 % (19-41); Mean Corp Hgb Conc 31.9 g/dL (32-36); Mean Platelet Vol. 12.5 fl (6.2-12.0); Monocyte# 1.15 X10^3/uL; Monocyte% 9.6 % (0-10); NRBC Flagged by Analyzer 0 % (0-5); Neutrophil # 8.52 X10^3/uL (2.7-7.7); Neutrophil % 70.7 % (47-70); Platelet Count 159 K/mm3 (150-450); RBC Distribution Width CV 14.6 % (11.6-14.6); RBC Distribution Width SD 59.5 fl (35.1-43.9); Red Blood Count 3.31 M/mm3 (4.2-5.4)
[2023-01-27 07:31] LABS: ALB/GLOB Ratio 0.9 RATIO (0.9-2.4); AST(SGOT) 17 U/L (15-37); Alanine Aminotransfer ALT/SGPT 29 U/L (13-56); Alkaline Phosphatase 76 U/L (45-117); Anion Gap 5 (5-15); BUN 44 mg/dL (7-18); BUN/Creat Ratio 42.7 RATIO (10-20); Chloride 107 mmol/L (98-107); Creatinine, Serum 1.03 mg/dL (0.55-1.02); EST Glomerular Filtration Rate 55 mL/min (>60); Est Glom Filt Rate - Afr Amer 66 mL/min (>60); Estimated Creatinine Clearance 36.99 ml/min; Globulin 3.2 g/dL (2.2-4.2); Glucose 95 mg/dL (74-106); Potassium 4.4 mmol/L (3.5-5.1); Protein, Total 6.2 g/dL (6.4-8.2); Sodium Level 141 mmol/L (136-145)
[2023-01-27 08:59] VITALS: BP 140/65; PULSE 54; RESP 16; TEMP 36.7; O2SAT 96
[2023-01-27] MEDS: Enoxaparin 30 MG/0.3 ML Syringe SC (09:03)
[2023-01-27] MEDS: Sertraline 50 MG Tablet 75 MG PO (09:03)
[2023-01-27] MEDS: Allopurinol 100 MG Tablet 200 MG PO (09:03)
[2023-01-27] MEDS: Multivitamin (Healthy Eyes) Capsule 1 CAP PO ×2 (09:04→16:10)
[2023-01-27] MEDS: Aspirin E.C. 81 MG Tablet PO (09:04)
[2023-01-27] MEDS: Folic Acid 1 MG Tablet 2 MG PO (09:04)
[2023-01-27] MEDS: Clopidogrel Bisulfate 75 MG Tablet PO (09:04)
[2023-01-27] MEDS: BRIMONIDINE 0.2% 5ML BOTTLE 2 DRP OPHTHALMIC (09:04)
[2023-01-27] MEDS: Lisinopril 20 MG Tablet PO (09:04)
[2023-01-27] MEDS: Isosorbide Mononitrate 60 MG Tablet PO (09:04)
[2023-01-27] MEDS: NETARSUDIL MESYLATE 1 DRP OPHTHALMIC (09:04)
[2023-01-27] MEDS: Gabapentin 100 MG Capsule 200 MG PO (09:07)
[2023-01-27] MEDS: amLODIPine 5 MG Tablet PO (09:07)
[2023-01-27] MEDS: Senna/Docusate Sodium 1 Tablet 2 TABLET PO (09:09)
[2023-01-27] MEDS: Ensure Plus High Protein 120 ML LIQUID PO (09:09)
--- NOTE | 2023-01-27 13:54 | TREXTCAR_ITS ---
Diet Diet Order/Speech Therapy: 01/22/23 16:19 Diet: Cardiac - Heart Healthy Food consistency:: Regular Liquid Consistency:: Regular/Thin Routine Orders/Code Status Suppository Type: Dulcolax 10mg Suppository Frequency: Daily PRN Routine Lab Work: CBC (2-3 days) Therapies Physical Therapy: Eval and Treat Occupational Therapy: Eval and Treat Problem/Diagnosis (1) Weakness: Status: Inactive Code(s): R53.1 - Weakness (2) COLD (chronic obstructive lung disease): Status: Chronic Code(s): J44.9 - Chronic obstructive pulmonary disease, unspecified (3) History of coronary artery bypass surgery: Status: Acute Code(s): Z95.1 - Presence of aortocoronary bypass graft Comment: CABG x2- TINOCO-LAD, Rt Radial graft-PDA 08/10/00 (4) Essential hypertension: Status: Chronic Code(s): I10 - Essential (primary) hypertension (5) Glaucoma: Status: Acute Code(s): H40.9 - Unspecified glaucoma (6) CKD (chronic kidney disease) stage 3, GFR 30-59 ml/min: Status: Chronic Code(s): N18.3 - Chronic kidney disease, stage 3 (moderate) Plan #Weakness and falls #Strep mitis bacteremia- resolved #LANDON on ckd IIIb- landon resolved #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 She had rec ent admission and was discharged 01/17/2023 after hospitalization for COPD exacerbation and cystitis and was discharged on prednisone and Keflex. After discharge she continued to feel weak and had a fall and was brought back to the ED. No focal complaints were found but did have LANDON and hospitalist consulted for admission for placement. Patient just generally felt unwell and given strep mitis bacteremia 1 out of 2 during her hospitalization the week prior she was placed on vancomycin and blood cultures were repeated in the event that her bacteremia was persistent and she also had broad lab work-up. Lab work-up was fairly unremarkable. Did decrease her gabapentin and she verbalized understanding of the purpose of this as it may contribute to feeling tired and fatigue. Also discussed that if no other abnormalities found this may impart be due to stress/anxiety/depression. With the decrease in gabapentin and increase in Zoloft she did begin to improve. Repeat cultures were no growth to date for her bacteremia and she completed her course of antibiotics. Creatinine improved to baseline. She had repeat echocardiogram due to the fatigue which showed enlarged left atrium, EF of 45% with mild global left ventricular systolic dysfunction and moderate focal mitral valve calcification of the posterior leaflet. Had an echo 10/07 which showed EF of 55 but with segmental dysfunction and also demonstrated the enlarged atrium and calcification. 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 Does not appear overloaded not presently having symptoms. PT/OT evaluated and recommended SNF and patient agreeable. On day of discharge she had no complaints and reported feeling better. Of note white blood cell count minimally elevated but she has no signs or symptoms of infection and has no symptomatic or localizing complaints to suggest infection, afebrile, vitally stable. Would recommend repeating CBC in 2 to 3 days to further assess. If abnormalities persist may need to consider hematology evaluation as she has had intermittent monocytosis and has an MCV of 110 with no other etiology identified. Discharge instructions as followed: DISCHARGE INSTRUCTIONS PLEASE READ *Please take this with you to your next doctors appointment* -Please follow-up with pulmonology upon discharge as previously scheduled or call to schedule your routine follow-up appointment. -You will need to follow-up with cardiology upon discharge for continuity of care given your history of coronary artery disease and heart failure with preserved ejection fraction, please call the office upon discharge if you do not already have a future scheduled appointment ) -Recommend continuing decreased dose of gabapentin as this can contribute to fatigue -Your Zoloft has been increased to help with mood which can contribute to your fatigue and tiredness -Would advise against doxepin if possible given your heart history -Weigh yourself every day. A sudden weight gain can mean you are retaining fluid. Weigh yourself at the same time of day and in the same kind of clothes. Ideally, weigh yourself first thing in the morning after you empty your bladder, but before you eat breakfast. -Please call your physician if your weight goes up by more than 2 pounds in 1 day or 5 pounds in 1 week. This can be a sign that you are retaining more fluid than you should be. -Please call your primary care provider's office upon discharge to schedule a hospital follow up within 1 week. -For any concerning signs or symptoms please call 911 or proceed to the nearest emergency department Allergies/Procedures Done in Hospital Allergies metoprolol tartrate [From Lopressor] Allergy (Verified 01/22/23 09:42) Unknown shellfish derived Allergy (Verified 01/22/23 09:42) Anaphylaxis Sulfa (Sulfonamide Antibiotics) Allergy (Verified 01/22/23 09:42) Rash Procedures: 2-D Echocardiogram Type of Care/Length of Stay Estimated LOS: Convalescent Care Less Than 30 days Type of Care Needed: Skilled Rehab Potential: Good Prognosis: Good Additional Orders/Day of Discharge Day of Discharge: 01/27/23 Dietary and Speech Recommendations Dietitian Recommendations/Changes: Continue Cardiac as ordered Will provide 4 oz ensure plus high protein 4x/day for increased nutrition if consumed. Discharge Plan Admission Admit Date/Time: 01/22/23 13:20 Primary Reason for Your Visit: Weakness Attending Provider: Erlinda Herndon Primary Care Provider: Steffany Rose Instructions Patient Instructions: ED Fall Prevention Additional Instructions / Restrictions: DISCHARGE INSTRUCTIONS PLEASE READ *Please take this with you to your next doctors appointment* -Please follow-up with pulmonology upon discharge as previously scheduled or call to schedule your routine follow-up appointment. -You will need to follow-up with cardiology upon discharge for continuity of care given your history of coronary artery disease and heart failure with preserved ejection fraction, please call the office upon discharge if you do not already have a future scheduled appointment ) -Recommend continuing decreased dose of gabapentin as this can contribute to fatigue -Your Zoloft has been increased to help with mood which can contribute to your fatigue and tiredness -Would advise against doxepin if possible given your heart history -Weigh yourself every day. A sudden weight gain can mean you are retaining fluid. Weigh yourself at the same time of day and in the same kind of clothes. Ideally, weigh yourself first thing in the morning after you empty your bladder, but before you eat breakfast. -Please call your physician if your weight goes up by more than 2 pounds in 1 day or 5 pounds in 1 week. This can be a sign that you are retaining more fluid than you should be. -Please call your primary care provider's office upon discharge to schedule a hospital follow up within 1 week. -For any concerning signs or symptoms please call 911 or proceed to the nearest emergency department Discharge Orders/Prescriptions Prescriptions: New gabapentin 100 mg Capsule 200 mg PO BID 4 Days Qty: 16 0RF sertraline 50 mg Tablet 75 mg PO DAILY 30 Days Qty: 45 0RF amlodipine 5 mg Tablet 5 mg PO DAILY 30 Days Qty: 30 0RF melatonin 10 mg Tablet, Sublingual 10 mg PO QHS 30 Days Qty: 30 0RF Continued latanoprost 0.005 % drops 1 drp OPHTHALMIC QPM nitroglycerin 0.4 mg tablet, sublingual 0.4 mg SUBLINGUAL Q5-15M PRN (Reason: CHEST PAIN ) docusate sodium [Colace] 100 mg capsule 100 mg PO BID PRN (Reason: CONSTIPATION ) brimonidine 0.1 % drops 2 drp ophthalmic (eye) DAILY acetaminophen 500 mg tablet 500 mg PO Q8H PRN (Reason: PAIN ) cholecalciferol (vitamin D3) 25 mcg (1,000 unit) tablet 25 mcg PO DAILY clobetasol 0.05 % cream 1 applic topical BID aspirin [Nora Low Dose Aspirin] 81 mg tablet,delayed release (DR/EC) 81 mg PO DAILY multivitamin Tablet 1 tab PO DAILY simvastatin 20 MG tablet 20 mg PO QHS folic acid 1 MG tablet 2 mg PO DAILY albuterol sulfate 1 INHALER inhaler 1 - 2 puff inhalation Q4H PRN PRN (Reason: Shortness Of Breath) allopurinol 100 mg tablet 200 mg PO DAILY calcipotriene 0.005 % Cream 1 applic TOPICAL DAILY PRN (Reason: PSORIASES) Rx Instructions: rub in gently and completely lisinopril 10 mg Tablet 20 mg PO BID montelukast 10 mg tablet 10 mg PO DAILY budesonide-formoterol [Symbicort] 160-4.5 mcg/actuation HFA aerosol inhaler 1 inh inhalation BID Rhopressa 0.02 % Drops 1 drp EACH EYE DAILY clopidogrel [Plavix] 75 mg tablet 75 mg PO DAILY isosorbide mononitrate 60 mg tablet extended release 24 hr 60 mg PO BID Stiolto Respimat 2.5-2.5 mcg/actuation mist 2 inh inhalation DAILY PreserVision AREDS [id number] capsule 1 cap PO BID Discontinued sertraline 50 mg tablet 50 mg PO DAILY hydrocodone-acetaminophen 7.5-325 mg Tablet 1 tab PO QHS hydrocodone-acetaminophen 7.5-325 mg tablet 1 tab PO DAILY PRN (Reason: PAIN ) prednisone 10 mg tablet 10 mg PO BID doxepin 25 mg capsule 25 mg PO QHS gabapentin 400 mg capsule 400 mg PO BID cephalexin 500 mg capsule 500 mg PO BID Referrals / Follow Up: Steffany Rose MD [Primary Care Provider] - Within 1 Week Disposition Disposition (needs filled in before D/C Order can be placed): Care Home Facility
--- NOTE | 2023-01-27 14:14 | DS.PCM_ITS ---
Providers Date of Admission: 01/22/23 Date of Discharge: 01/27/23 Primary Care Physician: Dr. Steffany Rose MD Reason For Visit: LANDON ON CKD, FALLS, STREP MITIS BACTERMIA Diagnosis Discharge Diagnosis (1) Weakness: Status: Inactive Code(s): R53.1 - Weakness (2) COLD (chronic obstructive lung disease): Status: Chronic Code(s): J44.9 - Chronic obstructive pulmonary disease, unspecified (3) History of coronary artery bypass surgery: Status: Acute Code(s): Z95.1 - Presence of aortocoronary bypass graft (4) Essential hypertension: Status: Chronic Code(s): I10 - Essential (primary) hypertension (5) Glaucoma: Status: Acute Code(s): H40.9 - Unspecified glaucoma (6) CKD (chronic kidney disease) stage 3, GFR 30-59 ml/min: Status: Chronic Code(s): N18.3 - Chronic kidney disease, stage 3 (moderate) Plan #Weakness and falls #Strep mitis bacteremia- resolved #LANDON on ckd IIIb- landon resolved #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: -Had 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 09/22/22: Irreversible moderately severe large airways obstructive ventilatory defect with a symmetric reduction diffusing capacity, resulting in air trapping #Chronic HFpEF-Echo 10/07/22 with segmental dysfunction, RVSP 44 mmHg with stage II diastolic dysfunction and preserved EF #CAD s/p CABG 1999-CABG x2- TINOCO-LAD, Rt Radial graft-PDA 08/10/00 #HTN Medications at Discharge Home Medications albuterol sulfate 90 mcg/actuation aerosol inhaler 1 - 2 puff inhalation Q4H PRN PRN Shortness Of Breath 10/10/15 folic acid 1 mg tablet 2 mg PO DAILY SUPPLEMENT 10/10/15 simvastatin 20 mg tablet 20 mg PO QHS CHOLESTEROL 10/10/15 allopurinol 100 mg tablet 200 mg PO DAILY GOUT 01/12/19 latanoprost 0.005 % eye drops 1 drp ophthalmic (eye) QPM GLAUCOMA 01/12/19 nitroglycerin 0.4 mg sublingual tablet 0.4 mg sublingual Q5-15M PRN CHEST PAIN 01/12/19 acetaminophen 500 mg tablet 500 mg PO Q8H PRN PAIN 06/26/21 cholecalciferol (vitamin D3) 25 mcg (1,000 unit) tablet 25 mcg PO DAILY SUPPLEMENT 06/26/21 clobetasol 0.05 % topical cream 1 applic topical BID PSORIASES 06/26/21 brimonidine 0.1 % eye drops 2 drp ophthalmic (eye) DAILY EYE IRRITATION 07/11/21 aspirin 81 mg tablet,delayed release (Nora Low Dose Aspirin) 81 mg PO DAILY HEART HEALTH 10/08/21 docusate sodium 100 mg capsule (Colace) 100 mg PO BID PRN CONSTIPATION 10/08/21 multivitamin 1 tab PO DAILY HEALTH MAINTENANCE 10/08/21 vitamins A,C,I-bbxx-ezwvey 4,296 mcg-226 mg-90 mg capsule (PreserVision AREDS) 1 cap PO BID EYE HEALTH 12/09/21 budesonide-formoterol HFA 160 mcg-4.5 mcg/actuation aerosol inhaler (Symbicort) 1 inh inhalation BID COPD 01/22/23 calcipotriene 0.005 % topical cream 1 applic topical DAILY PRN PSORIASES 01/22/23 clopidogrel 75 mg tablet (Plavix) 75 mg PO DAILY BLOOD THINNER 01/22/23 isosorbide mononitrate 60 mg tablet,extended release 24 hr 60 mg PO BID BLOOD PRESSURE 01/22/23 lisinopril 10 mg tablet 20 mg PO BID BLOOD PRESSURE 01/22/23 montelukast 10 mg tablet 10 mg PO DAILY ALLERGIES 01/22/23 netarsudil 0.02 % eye drops (Rhopressa) 1 drp EACH EYE DAILY GLAUCOMA 01/22/23 tiotropium 2.5 mcg-olodaterol 2.5 mcg/actuation mist for inhalation (Stiolto Respimat) 2 inh inhalation DAILY COPD 01/22/23 amlodipine 5 mg tablet 5 mg PO DAILY 30 days #30 tabs 01/27/23 gabapentin 100 mg capsule 200 mg PO BID 4 days #16 caps 01/27/23 melatonin 10 mg sublingual tablet 10 mg PO QHS 30 days #30 tabs 01/27/23 sertraline 50 mg tablet 75 mg PO DAILY 30 days #45 tabs 01/27/23 Hospital Course Procedures Transthoracic echo Summary of Care Provided Minutes Spent on Discharge: 35 Hospital Course: TALIA BURT, is a 82 F with a history of COPD, VTE, coronary artery disease status post CABG in 1999, hypertension, CKD stage IIIb presented to [facility] 01/22/2023 with increasing weakness and malaise.? She had recent admission and was discharged 01/17/2023 after hospitalization for COPD exacerbation and cystitis and was discharged on prednisone and Keflex. After discharge she continued to feel weak and had a fall and was brought back to the ED. No focal complaints were found but did have LANDON and hospitalist consulted for admission for placement. Patient just generally felt unwell and given strep mitis bacteremia 1 out of 2 during her hospitalization the week prior she was placed on vancomycin and blood cultures were repeated in the event that her bacteremia was persistent and she also had broad lab work-up. Lab work-up was fairly unremarkable. Did decrease her gabapentin and she verbalized understanding of the purpose of this as it may contribute to feeling tired and fatigue. Also discussed that if no other abnormalities found this may impart be due to stress/anxiety/depression. With the decrease in gabapentin and increase in Zoloft she did begin to improve. Repeat cultures were no growth to date for her bacteremia and she completed her course of antibiotics. Creatinine improved to baseline. She had repeat echocardiogram due to the fatigue which showed enlarged left atrium, EF of 45% with mild global left ventricular systolic dysfunction and moderate focal mitral valve calcification of the posterior leaflet. Had an echo 10/07 which showed EF of 55 but with segmental dysfunction and also demonstrated the enlarged atrium and calcification. 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 Does not appear overloaded not presently having symptoms. PT/OT evaluated and recommended SNF and patient agreeable. On day of discharge she had no complaints and reported feeling better. Of note white blood cell count minimally elevated but she has no signs or symptoms of infection and has no symptomatic or localizing complaints to suggest infection, afebrile, vitally stable. Would recommend repeating CBC in 2 to 3 days to further assess. If abnormalities persist may need to consider hematology evaluation as she has had intermittent monocytosis and has an MCV of 110 with no other etiology identified. Discharge instructions as followed: DISCHARGE INSTRUCTIONS PLEASE READ *Please take this with you to your next doctors appointment* -Please follow-up with pulmonology upon discharge as previously scheduled or call to schedule your routine follow-up appointment. -You will need to follow-up with cardiology upon discharge for continuity of care given your history of coronary artery disease and heart failure with preserved ejection fraction, please call the office upon discharge if you do not already have a future scheduled appointment ) -Recommend continuing decreased dose of gabapentin as this can contribute to fatigue -Your Zoloft has been increased to help with mood which can contribute to your fatigue and tiredness -Would advise against doxepin if possible given your heart history -Weigh yourself every day. A sudden weight gain can mean you are retaining fl uid. Weigh yourself at the same time of day and in the same kind of clothes. Ideally, weigh yourself first thing in the morning after you empty your bladder, but before you eat breakfast. -Please call your physician if your weight goes up by more than 2 pounds in 1 day or 5 pounds in 1 week. This can be a sign that you are retaining more fluid than you should be. -Please call your primary care provider's office upon discharge to schedule a hospital follow up within 1 week. -For any concerning signs or symptoms please call 911 or proceed to the nearest emergency department Physical Exam Narrative General: Alert, oriented, no acute distress HEENT: Atraumatic, normocephalic Eyes: Anicteric, normal conjunctiva, extraocular movements grossly intact Neck: Supple Respiratory: Normal respiratory effort, no wheezes appreciated today Cardiovascular: Regular rate GI: Soft, nontender, nondistended Extremities: No edema Musculoskeletal: Moving all extremities Neuro: No overt focal neurological deficits Skin: No rashes appreciated Psych: Cooperative Weight / BMI Weight Weight: 87.8 kg Body Mass Index (BMI) 33.2 ABG / Lab / Microbiology Data Result Diagrams: 01/27/23 05:13 01/27/23 05:13 Laboratory: Laboratory Results - last 24 hr 01/27/23 05:13: WBC 12.0 H, RBC 3.31 L, Hgb 11.6 L, Hct 36.4 L, MCV 110.0 H, MCH 35.0 H, MCHC 31.9 L, RDW Std Deviation 59.5 H, RDW Coeff of Alexandra 14.6, Plt Count 159, MPV 12.5 H, Immature Gran % (Auto) 0.700, Neut % (Auto) 70.7 H, Lymph % (Auto) 18.5 L, Jerome % (Auto) 9.6, Eos % (Auto) 0.2, Baso % (Auto) 0.3, Absolute Neuts (auto) 8.5 H, Absolute Lymphs (auto) 2.22, Nucleated RBC % 0 01/27/23 05:13: Sodium 141, Potassium 4.4, Chloride 107, Carbon Dioxide 29.0, Anion Gap 5, BUN 44 H, Creatinine 1.03 H, Estim Creat Clear Calc 36.99, Est GFR (MDRD) Af Amer 66, Est GFR (MDRD) Non-Af 55 L, BUN/Creatinine Ratio 42.7 H, Glucose 95, Calcium 10.0, Total Bilirubin 0.30, AST 17, ALT 29, Alkaline Ph osphatase 76, Total Protein 6.2 L, Albumin 3.0 L, Globulin 3.2, Albumin/Globulin Ratio 0.9 Microbiology: Microbiology 01/22/23 15:45 Blood Culture (Wb) - Anticubital Right Blood Culture - Final No growth in 5 days. 01/22/23 15:50 Blood Culture (Wb) - Right Hand Blood Culture - Final No growth in 5 days. 01/22/23 16:35 Mucosa - Nose Respiratory Panel (PCR) - Final 01/22/23 10:05 Nasal Secretion SARS-CoV-2 Antigen (Rapid) - Final D/C Instructions Discharge Diet: - (DASH diet, 3000 mg sodium restriction, 2 L fluid restriction) Meaningful Use Info Meaningful Use Diagnoses (Choose all that apply): None applicable Discharge Plan Admission Admit Date/Time: 01/22/23 13:20 Primary Reason for Your Visit: Weakness Attending Provider: Erlinda Herndon Primary Care Provider: Steffany Rose Instructions Patient Instructions: ED Fall Prevention Additional Instructions / Restrictions: DISCHARGE INSTRUCTIONS PLEASE READ *Please take this with you to your next doctors appointment* -Please follow-up with pulmonology upon discharge as previously scheduled or c all to schedule your routine follow-up appointment. -You will need to follow-up with cardiology upon discharge for continuity of care given your history of coronary artery disease and heart failure with preserved ejection fraction, please call the office upon discharge if you do not already have a future scheduled appointment (ph [phone]) -Recommend continuing decreased dose of gabapentin as this can contribute to fatigue -Your Zoloft has been increased to help with mood which can contribute to your fatigue and tiredness -Would advise against doxepin if possible given your heart history -Weigh yourself every day. A sudden weight gain can mean you are retaining fluid. Weigh yourself at the same time of day and in the same kind of clothes. Ideally, weigh yourself first thing in the morning after you empty your bladder, but before you eat breakfast. -Please call your physician if your weight goes up by more than 2 pounds in 1 day or 5 pounds in 1 week. This can be a sign that you are retaining more fluid than you should be. -DASH diet, 3000 mg sodium restriction, 2 L fluid restriction -Please call your primary care provider's office upon discharge to schedule a hospital follow up within 1 week. -For any concerning signs or symptoms please call 911 or proceed to the nearest emergency department Discharge Orders/Prescriptions Prescriptions: New gabapentin 100 mg Capsule 200 mg PO BID 4 Days Qty: 16 0RF sertraline 50 mg Tablet 75 mg PO DAILY 30 Days Qty: 45 0RF amlodipine 5 mg Tablet 5 mg PO DAILY 30 Days Qty: 30 0RF melatonin 10 mg Tablet, Sublingual 10 mg PO QHS 30 Days Qty: 30 0RF Continued latanoprost 0.005 % drops 1 drp OPHTHALMIC QPM nitroglycerin 0.4 mg tablet, sublingual 0.4 mg SUBLINGUAL Q5-15M PRN (Reason: CHEST PAIN ) docusate sodium [Colace] 100 mg capsule 100 mg PO BID PRN (Reason: CONSTIPATION ) brimonidine 0.1 % drops 2 drp ophthalmic (eye) DAILY acetaminophen 500 mg tablet 500 mg PO Q8H PRN (Reason: PAIN ) cholecalciferol (vitamin D3) 25 mcg (1,000 unit) tablet 25 mcg PO DAILY clobetasol 0.05 % cream 1 applic topical BID aspirin [Nora Low Dose Aspirin] 81 mg tablet,delayed release (DR/EC) 81 mg PO DAILY multivitamin Tablet 1 tab PO DAILY simvastatin 20 MG tablet 20 mg PO QHS folic acid 1 MG tablet 2 mg PO DAILY albuterol sulfate 1 INHALER inhaler 1 - 2 puff inhalation Q4H PRN PRN (Reason: Shortness Of Breath) allopurinol 100 mg tablet 200 mg PO DAILY calcipotriene 0.005 % Cream 1 applic TOPICAL DAILY PRN (Reason: PSORIASES) Rx Instructions: rub in gently and completely lisinopril 10 mg Tablet 20 mg PO BID montelukast 10 mg tablet 10 mg PO DAILY budesonide-formoterol [Symbicort] 160-4.5 mcg/actuation HFA aerosol inhaler 1 inh inhalation BID Rhopressa 0.02 % Drops 1 drp EACH EYE DAILY clopidogrel [Plavix] 75 mg tablet 75 mg PO DAILY isosorbide mononitrate 60 mg tablet extended release 24 hr 60 mg PO BID Stiolto Respimat 2.5-2.5 mcg/actuation mist 2 inh inhalation DAILY PreserVision AREDS [id number]-[id number] capsule 1 cap PO BID Discontinued sertraline 50 mg tablet 50 mg PO DAILY hydrocodone-acetaminophen 7.5-325 mg Tablet 1 tab PO QHS hydrocodone-acetaminophen 7.5-325 mg tablet 1 tab PO DAILY PRN (Reason: PAIN ) prednisone 10 mg tablet 10 mg PO BID doxepin 25 mg capsule 25 mg PO QHS gabapentin 400 mg capsule 400 mg PO BID cephalexin 500 mg capsule 500 mg PO BID Referrals / Follow Up: Steffany Rose MD [Primary Care Provider] - Within 1 Week Disposition Disposition (needs filled in before D/C Order can be placed): [facility] Charges/Coding Visit Charges Inpatient E&M: 34981 Disch Hosp >30min
[2023-01-27 14:26] VITALS: BP 101/60; PULSE 64; RESP 16; TEMP 36.9; O2SAT 94
--- NOTE | 2023-01-27 14:54 | CASEMGMT ---
Precert received for patient to get admitted to TCU. Provider updated, discharge summary and medication list obtained. TCU informed patient can transfer to TCU today. Patient informed that she will be transitioning to TCU this afternoon. Pt asked sw to call and update daughter. Sw called and informed dtr, Sabine, of patient being transitioned to TCU. Dtr expressed appreciation for update. No other sw needs identified at this time. Padmini Worthington, BEACH LIFEGUARD, SHELLFISH CHECKER
[2023-01-27 16:07] VITALS: BP 113/60; PULSE 64; RESP 16; TEMP 36.5; O2SAT 95
--- NOTE | 2023-01-27 17:53 | NURSING ---
Report called to MAXINE Madera at [facility] at [phone].
== END 2023-01-27 17:46 | disposition skilled nursing facility (03) | DRG 872 ==
LOC: ED 13:18 → PCU 01-23 07:49
PROVIDERS: Admitting Provider Internal Medicine; Emergency Provider Student in an Organized Health Care Education/Training Program; PCP Internal Medicine; Visit Provider Internal Medicine
DX: R78.81 Bacteremia (principal); I13.0 Hypertensive heart and chronic kidney disease with heart failure and stage 1 through stage 4 chronic kidney disease, or unspecified chronic kidney disease; N17.9 Acute kidney failure, unspecified; I50.32 Chronic diastolic (congestive) heart failure; S09.90XA Unspecified injury of head, initial encounter; J43.9 Emphysema, unspecified; N18.32 Chronic kidney disease, stage 3b; F34.1 Dysthymic disorder; I25.10 Atherosclerotic heart disease of native coronary artery without angina pectoris; E78.00 Pure hypercholesterolemia, unspecified; R00.1 Bradycardia, unspecified; D72.821 Monocytosis (symptomatic); I25.2 Old myocardial infarction; W01.10XA Fall on same level from slipping, tripping and stumbling with subsequent striking against unspecified object, initial encounter; E86.0 Dehydration; R29.6 Repeated falls; B95.4 Other streptococcus as the cause of diseases classified elsewhere; Z79.51 Long term (current) use of inhaled steroids; H40.9 Unspecified glaucoma; B95.5 Unspecified streptococcus as the cause of diseases classified elsewhere; Z20.822 Contact with and (suspected) exposure to COVID-19; Z79.82 Long term (current) use of aspirin; Z79.52 Long term (current) use of systemic steroids; Z79.02 Long term (current) use of antithrombotics/antiplatelets; Z87.891 Personal history of nicotine dependence; Z86.73 Personal history of transient ischemic attack (TIA), and cerebral infarction without residual deficits; Z95.1 Presence of aortocoronary bypass graft
CPT/HCPCS: 36415; 70450; 71045; 71275; 72125; 80048; 80053; 80076; 80202; 81001; 82306; 82330; 82550; 82607; 82728; 83010; 83540; 83550; 83615; 83735; 83880; 83970; 84100; 84145; 84443; 84484; 85025; 85045; 85379; 85384; 85652; 86140; 87040; 87426; 87633; 87811; 93005; 93308; 94640; 94668; 94760; 97110; 97116; 97162; 97166; 97530; 97535; 99252; 99285; J7030; J7040; J7050; Q9967; A4216; G0463

== ENCOUNTER 2023-01-27 17:50 | Inpatient (IN) | payer MEDICARE, SELFPAY ==
[2023-01-27 18:02] VITALS: BP 135/56; PULSE 62; RESP 17; TEMP 37.2; O2SAT 93; BMI 32.3
[2023-01-27 21:20] VITALS: PULSE 77; RESP 16; O2SAT 95
--- NOTE | 2023-01-27 21:25 | HP.PCM_ITS ---
HPI - General General Date of Admission: 01/27/23 Date of Service: 01/28/23 Chief Complaint: Here for rehabilitation. HPI Narrative 01/22/2023 TALIA BURT, is a 82 Female who presents to [facility] Emergency Department with shortness of breath. Continuous shortness of breath, generalized malaise, feels weak, falls down. Unable to get up, hit head, no loss of consciousness. on antibiotics for urinary tract infection, recurrent falls, family requested TCU. Creatinine 1.41, Troponin 20, BNP 377, Chest X-ray negative. CT brain negative, CT cervical spine negative, CTA chest negative pulmonary embolism. 01/22/2023 Admit to Hospital. PT/OT for debility. Vancomycin, repeat blood cultures, Echo for strep mitis bacteremia. Gentle IV fluids for acute kidney injury. Prednisone 40mg daily for COPD. 01/22/2023 Echo LVSF 45%. Mild global LV systolic dysfunction. LA severely enlarged. Moderate mitral valve calcification. 01/23/2023 Repeat blood cultures pending. Acute kidney injury improved. 01/24/2023 Sitting up, slight overnight confusion, feeling better. Increase Zoloft for depression. Add Melatonin for sleep. Blood culture negative to date. Taper off prednisone. 01/25/2023 Tired, weak, but overall better. Stop antibiotics for strep mitis bacteremia. 01/26/2023 Await for Pre-CERT for placement. Refusing nebulizers, order Budesonide, LAMA instead. 01/27/2023 Admit to TCU with debility, here for rehabilitation, strengthening, prior to discharge home with . [facility] Medical History Acute UTI Ambulates with cane Anemia Anemia Angina pectoris Anxiety Anxiety Arthritis Asthma Atherosclerotic heart disease of [place] coronary artery without angina pectoris Cardiology follow-up encounter Chest pain Chronic airway obstruction CKD (chronic kidney disease) stage 3, GFR 30-59 ml/min Constipation COPD (chronic obstructive pulmonary disease) Depression Depression Diarrhea Diverticulosis DVT (deep venous thrombosis) Dysplasia of cervix, unspecified Dysthymic disorder Emphysema, unspecified Essential hypertension Fatigue Forgetfulness Glaucoma Gout History of dermatomyositis History of diverticulitis History of echocardiogram History of edema History of heart attack History of left heart catheterization (LHC) (~11/05/21) History of renal disease History of stress test Hx of intestinal obstruction Hx TIA/stroke w/o resid Hypertension Lichen sclerosus Lichen sclerosus Low iron Lung nodule Myalgia Osteoporosis Other pulmonary embolism and infarction Post-menopausal Pulmonary embolism Pure hypercholesterolemia PVD (peripheral vascular disease) Rectocele Restless legs Scleroderma Shortness of breath on exertion SOB (shortness of breath) Walker as ambulation aid Weakness Wears dentures Wears glasses Home Medications albuterol sulfate 90 mcg/actuation aerosol inhaler 1 - 2 puff inhalation Q4H PRN PRN Shortness Of Breath 10/10/15 [History Last Taken Unknown] folic acid 1 mg tablet 2 mg PO DAILY SUPPLEMENT 10/10/15 [History Last Taken 09/15] simvastatin 20 mg tablet 20 mg PO QHS CHOLESTEROL 10/10/15 [History Last Taken 01/21/23] allopurinol 100 mg tablet 200 mg PO DAILY GOUT 01/12/19 [History Last Taken 01/22/23] latanoprost 0.005 % eye drops 1 drp ophthalmic (eye) QPM GLAUCOMA 01/12/19 [History Last Taken 01/21/23] nitroglycerin 0.4 mg sublingual tablet 0.4 mg sublingual Q5-15M PRN CHEST PAIN 01/12/19 [History Last Taken Unknown] acetaminophen 500 mg tablet 500 mg PO Q8H PRN PAIN 06/26/21 [History Last Taken Unknown] cholecalciferol (vitamin D3) 25 mcg (1,000 unit) tablet 25 mcg PO DAILY SUPPLEMENT 06/26/21 [History Last Taken 01/22/23] clobetasol 0.05 % topical cream 1 applic topical BID PSORIASES 06/26/21 [History Last Taken Unknown] brimonidine 0.1 % eye drops 2 drp ophthalmic (eye) DAILY EYE IRRITATION 07/11/21 [History Last Taken 01/22/23] aspirin 81 mg tablet,delayed release (Nora Low Dose Aspirin) 81 mg PO DAILY HEART HEALTH 10/08/21 [History Last Taken 01/22/23] docusate sodium 100 mg capsule (Colace) 100 mg PO BID PRN CONSTIPATION 10/08/21 [History Last Taken 01/22/23] multivitamin 1 tab PO DAILY HEALTH MAINTENANCE 10/08/21 [History Last Taken 01/22/23] vitamins A,C,L-jsan-avrouc 4,296 mcg-226 mg-90 mg capsule (PreserVision AREDS) 1 cap PO BID EYE HEALTH 12/09/21 [History Last Taken 01/22/23] budesonide-formoterol HFA 160 mcg-4.5 mcg/actuation aerosol inhaler (Symbicort) 1 inh inhalation BID COPD 01/22/23 [History Last Taken Unknown] calcipotriene 0.005 % topical cream 1 applic topical DAILY PRN PSORIASES 01/22/23 [History Last Taken Unknown] clopidogrel 75 mg tablet (Plavix) 75 mg PO DAILY BLOOD THINNER 01/22/23 [History Last Taken 01/22/23] isosorbide mononitrate 60 mg tablet,extended release 24 hr 60 mg PO BID BLOOD PRESSURE 01/22/23 [History Last Taken 01/22/23] lisinopril 10 mg tablet 20 mg PO BID BLOOD PRESSURE 01/22/23 [History Last Taken 01/22/23] montelukast 10 mg tablet 10 mg PO DAILY ALLERGIES 01/22/23 [History Last Taken 01/22/23] netarsudil 0.02 % eye drops (Rhopressa) 1 drp EACH EYE DAILY GLAUCOMA 01/22/23 [History Last Taken 01/22/23] tiotropium 2.5 mcg-olodaterol 2.5 mcg/actuation mist for inhalation (Stiolto Respimat) 2 inh inhalation DAILY COPD 01/22/23 [History Last Taken 01/22/23] amlodipine 5 mg tablet 5 mg PO DAILY BP 01/27/23 [History Last Taken Unknown] gabapentin 100 mg capsule 200 mg PO BID Pain 01/27/23 [History Last Taken Unknown] melatonin 10 mg sublingual tablet 10 mg PO QHS Sleep 01/27/23 [History Last Taken Unknown] sertraline 50 mg tablet 75 mg PO DAILY Mood 01/27/23 [History Last Taken Unknown] Allergy/AdvReac Type Severity Reaction Status Date / Time metoprolol tartrate Allergy Unknown Verified 01/22/23 09:42 [From Lopressor] shellfish derived Allergy Anaphylaxis Verified 01/22/23 09:42 Sulfa (Sulfonamide Allergy Rash Verified 01/22/23 09:42 Antibiotics) Family History Father Heart disease Myocardial infarction Surgical History History of cholecystectomy History of coronary artery bypass surgery (~08/10/00) History of intraocular lens implant History of left knee replacement History of total right knee replacement Hx of colonoscopy Hx of heart bypass surgery Social History (Updated 01/27/23 @ 21:[address] Thomas Duffy MD) household members: spouse Smoking Status: Former smoker second hand exposure: Yes alcohol intake: never substance use type: does not use caffeine: Yes what type of physical activity do you participate in: none frequency: does not exercise ROS Constitutional Constitutional: Denies chills, fever(s) or weight gain ENT HEENT: Reports sore throat; Denies headache(s), nasal congestion or nasal discharge Cardiovascular Cardiovascular: Denies chest pain or palpitations Respiratory/Chest Respiratory/Chest: Denies cough, excessive phlegm production or shortness of breath with exertion Gastrointestinal Gastrointestinal: Denies abdominal pain, nausea or vomiting Genitourinary Genitourinary: Denies dysuria Musculoskeletal Musculoskeletal: Denies joint pain or joint swelling Integumentary Integumentary: Denies rash or wounds Neurologic Neurologic: Denies focal weakness, numbness or tingling Psychiatric Psychiatric: Denies anxiety, auditory hallucinations, depression, homicidal ideation or suicidal ideation Vital Signs Vital Signs Vital Signs: 01/27/23 18:02 Temperature 98.9 F Temperature Source Oral Pulse Rate 62 Respiratory Rate 17 Blood Pressure 135/56 H Blood Pressure Mean 82 Blood Pressure Source Monitor Pulse Ox 93 Oxygen Delivery Method Room Air Weight Weight: 85.366 kg Body Mass Index (BMI) 32.3 Physical Exam Const alert General Appearance: cooperative HEENT normocephalic Eyes PERRL and EOMs intact bilaterally Neck supple, no JVD and no carotid bruits Resp normal respiratory effort, normal air movement and clear to auscultation bilaterally Cardio regular rate and regular rhythm GI normal to inspection, nondistended, normoactive bowel sounds, non-tender and non-distended Extremity normal capillary refill General Extremity: Negative for edema Skin no rashes or lesions noted General Skin Exam: no breakdown Psych affect normal Appearance: appropriate Results Lab / Micro Data Result Diagrams: 01/28/23 05:34 01/28/23 05:34 Assessment & Plan Assessment/Plan (1) Debility: (2) Falls: (3) Bacteremia: (4) Acute kidney injury: (5) COPD (chronic obstructive pulmonary disease): (6) Hyperlipidemia: (7) Gout: (8) Glaucoma: (9) Coronary artery disease: (10) Depression: (11) Insomnia: (12) Neuropathic pain: PLAN: Plan 82 year old female with below past medical history hospitalized for strep mitis bacteremia, complicated by acute kidney injury, COPD exacerbation, delirium, admitted to TCU with debility, here for rehabilitation, strengthening, prior to discharge home with . * Debility - PT/OT. * Pain - Tylenol 1000mg q6h prn pain (1-10). * Bowel - senna/colace 1 tablet bid, Dulcolax 10mg pr x 1 prn, MOM 30ml po x 1 prn. * Adult immunization - Administer pneumonia vaccine, covid19 vaccine, flu vaccine as appropriate. * DVT prophylaxis - Hold, on dual antiplatelet therapy. * COPD - Fluticasone/salmeterol 1 puff bid, Anoro 1 puff daily, Albuterol 1-2 puff q4h prn. * Gout - Allopurinol 200mg daily. * Hypertension - Lisinopril 20mg bid, Amlodipine 5mg daily. * Coronary artery disease - Lisinopril 20mg bid, Isosorbide MN 60mg bid, Plavix 75mg daily, Aspirin 81mg daily, NTG 0.4mg sl q5m prn. * Hyperlipidemia - Atorvastatin 10mg qhs. * Glaucoma - Brimonidine 2gtt ou daily, Latanoprost 1gtt ou qhs. * Psoriasis - Clobetasol topical bid. * Folate deficiency - Folic acid 2mg daily. * Neuropathic pain - Gabapentin 200mg bid. * Insomnia - Melatonin 10mg qhs. * Allergic rhinitis - Singulair 10mg daily. * Macular degeneration - Healthy Eyes 1 capsule bid. * Depression - Sertraline 75mg daily, stable chronic senior care use, GDR not recommended. * Vitamin D deficiency - D3 25mcg daily. * Sore throat - Cepacol 1 lozenge q2h prn.
[2023-01-27] MEDS: Latanoprost 0.005% 1 Bottle 1 DRP OPHTHALMIC (21:56)
[2023-01-27] MEDS: MELATONIN 10 MG TABLET PO (21:57)
[2023-01-27] MEDS: Gabapentin 100 MG Capsule 200 MG PO (21:57)
[2023-01-27] MEDS: Atorvastatin Calcium 10 MG Tablet PO (21:57)
--- NOTE | 2023-01-28 01:59 | NURSING ---
Patient noted to be transferring self to bathroom, then calling for assistance. Re-educated on use of call light for assistance to and from bathroom. Will continue to monitor.
[2023-01-28 05:51] LABS: Absolute Lymphocyte Count 2.84 X10^3/uL (0.83-4.51); Basophil# 0.06 X10^3/uL; Basophil% 0.4 % (0-1); Eosinophil# 0.17 X10^3/uL; Hematocrit 41.6 % (37-47); Hemoglobin 13.4 g/dL (12.0-15.0); Lymphocyte # 2.84 X10^3/ul (0.83-4.51); Lymphocyte % 16.9 % (19-41); Mean Corp Hgb Conc 32.2 g/dL (32-36); Mean Corpuscular Hgb 35.7 pg (27.0-32.0); Mean Corpuscular Volume 110.9 fL (81-99); Mean Platelet Vol. 12.1 fl (6.2-12.0); Monocyte# 1.59 X10^3/uL; Monocyte% 9.5 % (0-10); NRBC Flagged by Analyzer 0 % (0-5); Neutrophil # 12.02 X10^3/uL (2.7-7.7); Neutrophil % 71.7 % (47-70); POSITIVE DIFFERENTIAL YES; Platelet Count 188 K/mm3 (150-450); RBC Distribution Width CV 14.8 % (11.6-14.6); RBC Distribution Width SD 60.4 fl (35.1-43.9); Red Blood Count 3.75 M/mm3 (4.2-5.4); White Blood Count 16.8 K/mm3 (4.4-11.0)
[2023-01-28 05:58] LABS: Differential Indicated SCAN CRITERIA MET
[2023-01-28 06:00] VITALS: BMI 32.8
[2023-01-28 06:26] LABS: Differential Comment SCANNED
[2023-01-28 06:28] LABS: Anion Gap 6 (5-15); BUN 46 mg/dL (7-18); BUN/Creat Ratio 37.1 RATIO (10-20); Calcium,Total 9.9 mg/dL (8.5-10.1); Chloride 103 mmol/L (98-107); Creatinine, Serum 1.24 mg/dL (0.55-1.02); EST Glomerular Filtration Rate 44 mL/min (>60); Est Glom Filt Rate - Afr Amer 53 mL/min (>60); Estimated Creatinine Clearance 30.73 ml/min; Glucose 96 mg/dL (74-106); Sodium Level 138 mmol/L (136-145)
[2023-01-28] MEDS: Umeclidinium Brm/Vilanterol 62.5-25 mcg Inh 1 PUFF INHALATION (06:50)
[2023-01-28] MEDS: Fluticasone/Salmeterol 232-14 Inhaler 1 PUFF INHALATION ×2 (06:50→17:16)
[2023-01-28] MEDS: Clopidogrel Bisulfate 75 MG Tablet PO (06:52)
[2023-01-28] MEDS: Allopurinol 100 MG Tablet 200 MG PO (06:52)
[2023-01-28] MEDS: Lisinopril 20 MG Tablet PO ×2 (06:52→17:16)
[2023-01-28] MEDS: Montelukast 10 MG Tablet PO (06:52)
[2023-01-28] MEDS: Isosorbide Mononitrate 60 MG Tablet PO ×2 (06:52→17:16)
[2023-01-28] MEDS: Sertraline 50 MG Tablet 75 MG PO (06:52)
[2023-01-28] MEDS: Cholecalciferol (VIT D3) 25 MCG TABLET (1,000 UNITS) PO (06:52)
[2023-01-28] MEDS: Senna/Docusate Sodium 1 Tablet PO ×2 (06:52→17:16)
[2023-01-28] MEDS: Multivitamin (Healthy Eyes) Capsule 1 CAP PO ×2 (06:52→17:16)
[2023-01-28] MEDS: amLODIPine 5 MG Tablet PO (06:57)
[2023-01-28] MEDS: Gabapentin 100 MG Capsule 200 MG PO ×2 (06:59→17:16)
[2023-01-28] MEDS: BRIMONIDINE 0.2% 5ML BOTTLE 2 DRP OPHTHALMIC (06:59)
--- NOTE | 2023-01-28 07:26 | NURSING ---
Scant amount of blood noted around vaginal area along w/ excoriation, yeast like.
[2023-01-28] MEDS: Aspirin E.C. 81 MG Tablet PO (08:26)
[2023-01-28] MEDS: Multivitamins,Therapeutic Tablet 1 TABLET PO (08:26)
[2023-01-28] MEDS: Folic Acid 1 MG Tablet 2 MG PO (08:26)
[2023-01-28] MEDS: guaiFENesin Dm 10 ML UDC PO (08:46)
[2023-01-28] MEDS: FLUCONAZOLE 150 MG TABLET PO (10:05)
[2023-01-28] MEDS: Tuberculin,Purif.prot.deriv. 50 TU/ML Vial 0.1 ML ID (10:10)
[2023-01-28 10:43] VITALS: PULSE 76; O2SAT 96
[2023-01-28] MEDS: BENZOCAINE/MENTHOL 1 LOZENGE MUCOUS MEM ×3 (10:56→20:46)
[2023-01-28] MEDS: Albuterol IH (6.7 GM) 1 PUFF INHALER INHALATION (10:57)
--- NOTE | 2023-01-28 11:34 | NURSING ---
Assessment Consultant Note; Activity Asset: Eliza Rothman is independent in her choice of daily activities. She has a dog that will come visit, stated she would be interested in crafts, watches tv, reads and uses her smartphone for word puzzles or will do them in her book. Family and friends will visits daily.
[2023-01-28 11:51] LABS: Pathologist Review Reviewed
[2023-01-28] MEDS: Acetaminophen 500 MG Tablet 1000 MG PO ×2 (12:43→20:46)
[2023-01-28 15:10] VITALS: BP 128/50; PULSE 60; RESP 16; TEMP 36.3; O2SAT 95
--- NOTE | 2023-01-28 16:05 | CHAPLAIN ---
Type of Pastoral Visit _x__ Initial Visit ___ Follow-up Visit ___ On-call Visit ___ General Patient Visit ___ Spiritual Assessment ___ Family Conference ___ Bereavement ___ Rapid Response ___ Code Blue ___ Other (describe below) Pastoral Care Referral From _x_ Patient ___ Family ___ Nurse ___ Physician ___ Hvac Refrigeration Technician ___ Trial Paralegal ___ Other (describe below) Sacrament/Intervention _x__ Active listening ___ Anointing ___ Moravian ___ Bereavement ___ Communion ___ Nikki exploration ___ ___ Life review ___ Prayer ___ Reconciliation ___ Sacrament of Sick _x__ Supportive presence ___ Wedding ___ Other (describe below) Pastoral Comments patient and spouse are together in the room; pt is watching TV but interacts with this tag maker; pt and spouse talk about their home life and their pet dog; pt is looking forward to pet visit tomorrow and was encouraged today with visit of great grandchild; no other needs identified at this time
--- NOTE | 2023-01-28 16:44 | CASEMGMT ---
Social Work Met with patient to complete initial assessment. Introduced self and role. Discussed code status. Confirmed full code. MOLST placed in Dr folder. Educated to [facility] insurance with NRD 01/29 and continued stay is not guaranteed with each review with no noted copay. Pt's goal is to return home with . SW to continue to follow for DC planning. Jeanna Tuttle ,INTAKE COUNSELOR LITIGATION COORDINATOR
[2023-01-28] MEDS: Clobetasol Propionate 0.05% Cream 1 APPLIC TOPICAL (17:15)
[2023-01-28 17:19] VITALS: BP 126/62; PULSE 54
[2023-01-28] MEDS: Latanoprost 0.005% 1 Bottle 1 DRP OPHTHALMIC (20:45)
[2023-01-28] MEDS: MELATONIN 10 MG TABLET PO (20:46)
[2023-01-28] MEDS: Atorvastatin Calcium 10 MG Tablet PO (20:46)
[2023-01-29 05:52] LABS: Absolute Lymphocyte Count 1.94 X10^3/uL (0.83-4.51); Absolute Neutrophil Count 9.2 X10^3/uL (2.0-7.7); Basophil# 0.05 X10^3/uL; Basophil% 0.4 % (0-1); Eosinophil# 0.17 X10^3/uL; Eosinophils% 1.4 % (0-5); Hematocrit 35.9 % (37-47); Hemoglobin 11.4 g/dL (12.0-15.0); Lymphocyte # 1.94 X10^3/ul (0.83-4.51); Lymphocyte % 15.4 % (19-41); Mean Corp Hgb Conc 31.8 g/dL (32-36); Mean Corpuscular Hgb 34.9 pg (27.0-32.0); Mean Corpuscular Volume 109.8 fL (81-99); Mean Platelet Vol. 11.7 fl (6.2-12.0); Monocyte# 1.17 X10^3/uL; Monocyte% 9.3 % (0-10); NRBC Flagged by Analyzer 0 % (0-5); Neutrophil # 9.16 X10^3/uL (2.7-7.7); Neutrophil % 72.9 % (47-70); Platelet Count 143 K/mm3 (150-450); RBC Distribution Width CV 14.9 % (11.6-14.6); Red Blood Count 3.27 M/mm3 (4.2-5.4); White Blood Count 12.6 K/mm3 (4.4-11.0)
[2023-01-29] MEDS: Umeclidinium Brm/Vilanterol 62.5-25 mcg Inh 1 PUFF INHALATION (06:48)
[2023-01-29] MEDS: BRIMONIDINE 0.2% 5ML BOTTLE 2 DRP OPHTHALMIC (06:49)
[2023-01-29] MEDS: Isosorbide Mononitrate 60 MG Tablet PO ×2 (06:50→17:07)
[2023-01-29] MEDS: guaiFENesin Dm 10 ML UDC PO (06:50)
[2023-01-29] MEDS: Gabapentin 100 MG Capsule 200 MG PO ×2 (06:50→17:07)
[2023-01-29] MEDS: Sertraline 50 MG Tablet 75 MG PO (06:51)
[2023-01-29] MEDS: Lisinopril 20 MG Tablet PO ×2 (06:51→17:08)
[2023-01-29] MEDS: Clopidogrel Bisulfate 75 MG Tablet PO (06:51)
[2023-01-29] MEDS: Montelukast 10 MG Tablet PO (06:51)
[2023-01-29] MEDS: Multivitamin (Healthy Eyes) Capsule 1 CAP PO ×2 (06:51→17:07)
[2023-01-29] MEDS: amLODIPine 5 MG Tablet PO (06:51)
[2023-01-29] MEDS: Allopurinol 100 MG Tablet 200 MG PO (06:51)
[2023-01-29] MEDS: Fluticasone/Salmeterol 232-14 Inhaler 1 PUFF INHALATION ×2 (06:52→17:06)
[2023-01-29] MEDS: Clobetasol Propionate 0.05% Cream 1 APPLIC TOPICAL ×2 (06:52→17:07)
[2023-01-29] MEDS: Cholecalciferol (VIT D3) 25 MCG TABLET (1,000 UNITS) PO (06:52)
[2023-01-29] MEDS: Senna/Docusate Sodium 1 Tablet PO ×2 (06:53→17:07)
[2023-01-29] MEDS: Aspirin E.C. 81 MG Tablet PO (07:58)
[2023-01-29] MEDS: Multivitamins,Therapeutic Tablet 1 TABLET PO (07:58)
[2023-01-29] MEDS: Folic Acid 1 MG Tablet 2 MG PO (07:58)
[2023-01-29 14:42] VITALS: BP 121/50; PULSE 61; RESP 16; TEMP 36.7; O2SAT 90
[2023-01-29 16:59] VITALS: BMI 32.8
[2023-01-29 17:00] VITALS: BP 141/62; PULSE 65
--- NOTE | 2023-01-29 17:26 | NURSING ---
Notified Dr. Duffy, patient coughing during speech eval and after drinking. SpO2 lower today ranging 88-92% with deep breaths. Patient also states she feels more short of breath than usual. 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 N.O. for chest xray.
--- NOTE | 2023-01-29 18:10 | RAD_ITS ---
INDICATION: fine expiratory crackles EXAMINATION/TECHNIQUE: X-RAY - XR Chest 2 Views COMPARISON: January 22, 2023 FINDINGS: LINES/DEVICES: Stable sternotomy wires. LUNGS: Right pulmonary granulomas. Mild interstitial prominence, right more than left. No pneumothorax. MEDIASTINUM AND CARDIOVASCULAR STRUCTURES: Cardiac silhouette not enlarged. Central airways and mediastinal contour are unremarkable. BONES AND SOFT TISSUES: Degenerative vertebral changes. RAD/Chest PA and Lateral IMPRESSION: Mild interstitial prominence, right more than left. Electronically Signed: Zain Garcia DO at 19:27 EDT Reading Location ID and State: [facility] / [place] Tel [phone], Service support ,
[2023-01-29 18:27] VITALS: BMI 32.8
[2023-01-29 21:00] VITALS: PULSE 81; RESP 16; O2SAT 92
[2023-01-29] MEDS: Latanoprost 0.005% 1 Bottle 1 DRP OPHTHALMIC (21:03)
[2023-01-29] MEDS: BENZOCAINE/MENTHOL 1 LOZENGE MUCOUS MEM (21:03)
[2023-01-29] MEDS: Acetaminophen 500 MG Tablet 1000 MG PO (21:03)
[2023-01-29] MEDS: MELATONIN 10 MG TABLET PO (21:04)
[2023-01-29] MEDS: Atorvastatin Calcium 10 MG Tablet PO (21:04)
[2023-01-30] MEDS: Montelukast 10 MG Tablet PO (05:15)
[2023-01-30] MEDS: Isosorbide Mononitrate 60 MG Tablet PO ×2 (05:15→18:00)
[2023-01-30] MEDS: Lisinopril 20 MG Tablet PO ×2 (05:15→18:01)
[2023-01-30] MEDS: Multivitamin (Healthy Eyes) Capsule 1 CAP PO ×2 (05:15→18:00)
[2023-01-30] MEDS: Senna/Docusate Sodium 1 Tablet PO ×2 (05:15→18:01)
[2023-01-30] MEDS: Allopurinol 100 MG Tablet 200 MG PO (05:15)
[2023-01-30] MEDS: Sertraline 50 MG Tablet 75 MG PO (05:15)
[2023-01-30] MEDS: Clopidogrel Bisulfate 75 MG Tablet PO (05:15)
[2023-01-30] MEDS: amLODIPine 5 MG Tablet PO (05:15)
[2023-01-30] MEDS: Cholecalciferol (VIT D3) 25 MCG TABLET (1,000 UNITS) PO (05:15)
[2023-01-30] MEDS: BRIMONIDINE 0.2% 5ML BOTTLE 2 DRP OPHTHALMIC (05:17)
[2023-01-30] MEDS: Umeclidinium Brm/Vilanterol 62.5-25 mcg Inh 1 PUFF INHALATION (05:18)
[2023-01-30] MEDS: Fluticasone/Salmeterol 232-14 Inhaler 1 PUFF INHALATION ×2 (05:19→18:00)
[2023-01-30] MEDS: Gabapentin 100 MG Capsule 200 MG PO ×2 (05:25→18:03)
[2023-01-30 05:53] LABS: Absolute Lymphocyte Count 2.98 X10^3/uL (0.83-4.51); Absolute Neutrophil Count 10.1 X10^3/uL (2.0-7.7); Basophil# 0.05 X10^3/uL; Basophil% 0.3 % (0-1); Eosinophil# 0.17 X10^3/uL; Eosinophils% 1.2 % (0-5); Hematocrit 37.6 % (37-47); Hemoglobin 11.9 g/dL (12.0-15.0); Lymphocyte # 2.98 X10^3/ul (0.83-4.51); Lymphocyte % 20.4 % (19-41); Mean Corp Hgb Conc 31.6 g/dL (32-36); Mean Corpuscular Volume 110.6 fL (81-99); Mean Platelet Vol. 12.4 fl (6.2-12.0); Monocyte# 1.24 X10^3/uL; Monocyte% 8.5 % (0-10); NRBC Flagged by Analyzer 0 % (0-5); Neutrophil % 69.3 % (47-70); Platelet Count 151 K/mm3 (150-450); RBC Distribution Width CV 14.8 % (11.6-14.6); RBC Distribution Width SD 60.1 fl (35.1-43.9); White Blood Count 14.6 K/mm3 (4.4-11.0)
[2023-01-30 07:28] VITALS: BP 142/50; PULSE 59
--- NOTE | 2023-01-30 07:49 | PCM.PN.DRR ---
TCU RX Drug Regimen Review Subjective: TCU admission. 82 YOF presented to ER with shortness of breath. Hospitalized for strep mitis bacteremia, complicated by acute kidney injury, COPD exacerbation, delirium. Admitted to TCU on 01/27 with debility for rehabilitation and strengthening. Objective: Allergies metoprolol tartrate [From Lopressor] Allergy (Verified 01/22/23 09:42) Unknown shellfish derived Allergy (Verified 01/22/23 09:42) Anaphylaxis Sulfa (Sulfonamide Antibiotics) Allergy (Verified 01/22/23 09:42) Rash Current Medications Generic Name Dose Route Start Last Admin Trade Name Freq PRN Reason Stop Dose Admin Acetaminophen 1,000 mg 01/27/23 21:45 01/29/23 21:03 Acetaminophen 500 Mg Tablet PO 1,000 mg Q6H PRN PRN Administration Pain Score 1-10 Albuterol Sulfate 1 - 2 puff 01/27/23 19:00 01/28/23 10:57 Albuterol Ih (6.7 Gm) 1 Puff Inhaler INHALATION 1 puff Q4H PRN JOSEY Administration Allopurinol 200 mg 01/28/23 06:00 01/30/23 05:15 Allopurinol 100 Mg Tablet PO 200 mg DAILY JOSEY Administration Amlodipine Besylate 5 mg 01/28/23 06:00 01/30/23 05:15 Amlodipine 5 Mg Tablet PO 5 mg DAILY JOSEY Administration Aspirin 81 mg 01/28/23 08:00 01/29/23 07:58 Aspirin E.C. 81 Mg Tablet PO 81 mg DAILYCM JOSEY Administration Atorvastatin Calcium 10 mg 01/27/23 22:00 01/29/23 21:04 Atorvastatin Calcium 10 Mg Tablet PO 10 mg QHS JOSEY Administration Bisacodyl 10 mg 01/27/23 18:25 Bisacodyl 10 Mg Suppository RC X1 PRN Constipation Brimonidine Tartrate 2 drp 01/29/23 06:00 01/30/23 05:17 Brimonidine 0.2% 5ml Bottle OPHTHALMIC 2 drp DAILY JOSEY Administration Cholecalciferol 25 mcg 01/28/23 06:00 01/30/23 05:15 Cholecalciferol (Vit D3) 25 Mcg Tablet (1,000 Units) PO 25 mcg DAILY JOSEY Administration Clobetasol Propionate 1 applic 01/28/23 06:00 06/08/23 17:07 Clobetasol Propionate 0.05% Cream TOPICAL 1 applic BID JOSEY Administration Protocol Clopidogrel Bisulfate 75 mg 01/28/23 06:00 01/30/23 05:15 Clopidogrel Bisulfate 75 Mg Tablet PO 75 mg DAILY JOSEY Administration Folic Acid 2 mg 01/28/23 08:00 01/29/23 07:58 Folic Acid 1 Mg Tablet PO 2 mg DAILYCM JOSEY Administration Gabapentin 200 mg 01/27/23 18:30 01/30/23 05:25 Gabapentin 100 Mg Capsule PO 200 mg BID JOSEY Administration Guaifenesin 10 ml 01/28/23 07:53 01/29/23 06:50 Guaifenesin Dm 10 Ml Udc PO 10 ml Q6H PRN PRN Administration COUGH/CONGESTION Isosorbide Mononitrate 60 mg 01/28/23 06:00 01/30/23 05:15 Isosorbide Mononitrate 60 Mg Tablet PO 60 mg BID JOSEY Administration Latanoprost 1 drp 01/27/23 22:00 01/29/23 21:03 Latanoprost 0.005% 1 Bottle OPHTHALMIC 1 drp QHS [facility] Administration Lisinopril 20 mg 01/28/23 06:00 01/30/23 05:15 Lisinopril 20 Mg Tablet PO 20 mg BID JOSEY Administration Magnesium Hydroxide 30 ml 01/27/23 21:44 Magnesium Hydroxide 30 Ml Udc PO X1 PRN Constipation Melatonin 10 mg 01/27/23 22:00 01/29/23 21:04 Melatonin 10 Mg Tablet PO 10 mg QHS JOSEY Administration Montelukast Sodium 10 mg 01/28/23 06:00 01/30/23 05:15 Montelukast 10 Mg Tablet PO 10 mg DAILY JOSEY Administration Multivitamins 1 tablet 01/28/23 08:00 01/29/23 07:58 Multivitamins,Therapeutic [facility] Administration Multivitamins/Minerals 1 cap 01/28/23 06:00 01/30/23 05:15 Multivitamin (Healthy Eyes) Capsule PO 1 cap BID JOSEY Administration Nitroglycerin 0.4 mg 01/27/23 18:55 Nitroglycerin (Inpatient Use) 0.4 Mg Tab.Subl SL Q5M PRN CARDIAC/CHEST PAIN Fluticasone/Salmeterol 1 puff 01/28/23 06:00 01/30/23 05:19 Fluticasone/Salmeterol 232-14 Inhaler INHALATION 1 puff Q12 JOSEY Administration Senna/Docusate Sodium 1 tablet 01/27/23 21:45 01/30/23 05:15 Senna/Docusate Sodium 1 Tablet PO 1 tablet BID JOSEY Administration Sertraline HCl 75 mg 01/28/23 06:00 01/30/23 05:15 Sertraline 50 Mg Tablet PO 75 mg DAILY JOSEY Administration Sodium Chloride 10 - 40 ml 01/27/23 18:43 0.9% Saline Lock 10 Ml Syringe IV UD PRN SALINE FLUSH Throat Lozenges 1 lozenge 01/28/23 07:25 01/29/23 21:03 Benzocaine/Menthol 1 Lozenge MUCOUS MEM 1 lozenge Q2H PRN PRN Administration SORE THROAT Tuberculin PPD 0.1 ml 02/04/23 10:00 Tuberculin,Purif.Prot.Deriv. 50 Tu/Ml Vial ID 02/04/23 10:01 X1 ONE Umeclidinium/Vilanterol 1 puff 01/28/23 06:00 01/30/23 05:18 Umeclidinium Brm/Vilanterol 62.5-25 Mcg Inh INHALATION 1 puff DAILY JOSEY Administration Problem List (Last Reviewed 01/27/23 @ 21:[address] Thomas Duffy MD) Neuropathic pain (Acute) Insomnia (Acute) Depression (Acute) Coronary artery disease (Acute) Glaucoma (Acute) Gout (Acute) Hyperlipidemia (Acute) COPD (chronic obstructive pulmonary disease) (Chronic) Acute kidney injury (Acute) Debility (Acute) Falls (Acute) Bacteremia (Acute) Vital Signs Temp Pulse Resp BP Pulse Ox O2 Del Method 98.0 F 59 L 16 142/50 H 92 Room Air 01/29/23 14:42 01/30/23 07:28 01/29/23 21:00 01/30/23 07:28 01/29/23 21:00 01/29/23 21:00 Oxygen Delivery Method Room Air Weight: 87.317 kg Body Mass Index (BMI) 32.8 Sodium 138 mmol/L (136-145) 01/28/23 05:34 Potassium 4.0 mmol/L (3.5-5.1) 01/28/23 05:34 Chloride 103 mmol/L (98-107) 01/28/23 05:34 Carbon Dioxide 29.0 mmol/L (21.0-32.0) 01/28/23 05:34 Anion Gap 6 (5-15) 01/28/23 05:34 BUN 46 mg/dL (7-18) H 01/28/23 05:34 Creatinine 1.24 mg/dL (0.55-1.02) H 01/28/23 05:34 Est GFR (MDRD) Af Amer 53 mL/min (>60) L 01/28/23 05:34 Est GFR (MDRD) Non-Af 44 mL/min (>60) L 01/28/23 05:34 BUN/Creatinine Ratio 37.1 RATIO (10-20) H 01/28/23 05:34 Glucose 96 mg/dL (74-106) 01/28/23 05:34 Assessment/Plan: 1. Pain: acetaminophen 1000mg PO Q6H PRN pain (1-10). 3 doses given for pain 1,3-4/10 in the throat/generalized. Please continue to monitor pain, and PRN medication use.? 2. Bowel: senna/docusate 1 T PO BID, bisacodyl 10mg MS x 1 PRN constipation, MOM 30mL PO x 1 PRN constipation. Please continue to monitor for increase/decreased constipation, increased/decreased diarrhea, PRN medication use. Resident has not had any doses of bisacodyl or MOM. Last documented bowel movement 01/27. 3. COPD: umeclidinium/vilanterol 62.5/25mcg 1puff inhalation daily, fluticasone/salmeterol 232/14mcg 1puff inhalation Q12H, albuterol 90mcg 1-2 PF PO Q4H PRN. Please monitor for dry mouth, constipation, heart rate (60-76), PRN medication use, S/S of thrush. Please rinse mouth with water and spit following fluticasone/salmeterol administration to prevent thrush. Resident has had 1 dose (1 puff) of albuterol rescue inhaler.?Duplicate therapy with vilanterol and salmeterol, please consider stopping either umeclidinium/vilanterol or fluticasone/salmeterol. If ICS + LAMA + LABA needed, please consider single inhaler therapy with Incruse rather than Anoro and continuing AirDuo. Thank you. 4. Gout: allopurinol 200mg PO daily. Please continue to monitor for S/S of gout flare and renal function. 5. Hypertension/Coronary Artery Disease/DVT prophylaxis: lisinopril 20mg PO BID, amlodipine 5mg PO daily, isosorbide mononitrate 60mg PO BID, nitroglycerin 0.4mg SL Q5M PRN chest pain, clopidogrel 75mg PO daily, aspirin 81mg PO daily. Please continue to monitor for angioedema, peripheral edema, dizziness, potassium (last 4mmol/L), headache, BP (last 142/50), HR (last 59), worsening chest pain, renal function (last 38mL/min using AdjBW), S/S of DVT, bleeding/bruising, platelets (last 151,000), PRN medication use. Pt has not had any doses of nitroglycerin. 6. Hyperlipidemia: atorvastatin 10mg PO QHS. Please continue to monitor for muscle pain, lipid panel (last 09/15/22) and LFTs (last 01/27/23). 7. Glaucoma/Macular Degeneration: healthy eyes multivitamin 1 T PO BID, brimonidine 0.2% 2 GTT OU daily, latanoprost 0.005% 1 GTT OU QHS. Please continue to monitor for vision changes, worsening vision. 8. Psoriasis: clobetasol 0.05% cream 1 APL TOP BID. Please continue to monitor for worsening psoriasis, itching, redness, dermatitis. 9. Insomnia: melatonin 10mg PO QHS. Please continue to monitor for excessive sedation. 10. Allergic rhinitis: montelukast 10mg PO daily. Please continue to monitor for worsening rhinitis/trouble breathing, 11.?Cough/sore throat: guaifenesin/dextromethorphan 10mL PO Q6H PRN cough/congestion and Cepacol 1 Lozenge PO Q2H PRN sore throat. Please monitor for worsening cough, sore throat, PRN medication use. Resident has received 2 doses of guaifenesin/DM and 4 doses of Cepacol. 12. Folate and vitamin D deficiencies: cholecalciferol 25mcg PO daily and folic acid 2mg PO daily. Please monitor labs, (Vit D Last lab 01/22/23). Assessment/Plan for indications treated with psychotropic medications: 1. Neuropathic pain: Gabapentin 200mg PO BID. Please continue to monitor pain, GDR not appropriate as being used for neuropathic pain. Please continue to monitor renal function (last 37.9 mL/min using AdjBW, dose currently appropriate), falls/fractures (BEERs medication) and confusion.? 2. Depression: Sertraline 75mg PO daily. See MD note on GDR, please continue to monitor mental status, depression/anxiety, suicidal ideation (black box warning), fall/fractures (BEERs medication). Medical chart and medication regimen reviewed. The following medication irregularities or issues were identified: 1. Duplicate therapy with vilanterol and salmeterol, please consider stopping either umeclidinium/vilanterol or fluticasone/salmeterol. If ICS + LAMA + LABA needed, please consider single inhaler therapy with Incruse rather than Anoro and continuing AirDuo. Thank you. Date of Note:: 01/30/23
[2023-01-30] MEDS: Folic Acid 1 MG Tablet 2 MG PO (08:38)
[2023-01-30] MEDS: Multivitamins,Therapeutic Tablet 1 TABLET PO (08:38)
[2023-01-30] MEDS: Aspirin E.C. 81 MG Tablet PO (08:38)
--- NOTE | 2023-01-30 12:20 | ST.MBS ---
Modified Barium Swallow - Patient Information Study Date: 01/30/23 Study Time: 09:30 Direct Billable Minutes: 87 Total Minutes procedure & reportin Diagnosis: COPD (J44.9), Debility (R53.81) Referring Physician: Thomas Duffy Chi Reason for Referral: Objectively assess swallow function, assess risk for aspiration, and determine recommendations for least restrictive diet textures and compensatory strategies to improve safety of swallow. Medical History: Lorna Townsend is a 82-year-old female who presented to [facility] Emergency Department 01/22/23 with shortness of breath, generalized malaise, feels weak, reoccurring falls at home. Unable to get up, hit head, no loss of consciousness. Chest X-ray negative. CT brain negative, CT cervical spine negative, CTA chest negative pulmonary embolism. Echo for strep mitis bacteremia which was treated w/ medication. Dx of COPD. On 01/27/2023 Patient was admitted to TCU with debility, here for rehabilitation, strengthening, prior to discharge home with . Patient participated in voice evaluation 01/30/2023 for dysphonia. She was referred for dysphagia evaluation due to coughing observed when consuming liquids during voice evaluation. BSE 01/30/2023 recommended MBSS to further evaluate swallow function and aspiration risk. Current Diet Ordered: Regular textures / Thin liquids Dentition: Upper Dentures, Lower Dentures Mental Status: WNL Respiratory Status: Oxygenating on Room Air - Penetration-Aspiration Scale Penetration-Aspiration Scale: OBJECTIVE ASSESSMENT OF SWALLOW FUNCTION (QUANTITATIVE ? PER TRIAL): PENETRATION / ASPIRATION SCALE (AMAYA): 1 = does not enter airway 2 = enters airway/above vocal folds/ejected 3 = enters airway/above vocal folds/not ejected 4 = enters airway/contacts vocal folds/ejected 5 = enters airway/contacts vocal folds/not ejected 6 = enters airway/below vocal folds/ejected 7 = enters airway/below vocal folds/not ejected despite effort 8 = enters airway/below vocal folds/no effort VIDEOFLOROSCOPIC SCALE SCORE (AMAYA): Grade I = aspiration of material that has penetrated into the laryngeal vestibule, intact cough reflex Grade II = aspiration < 10 % of the bolus, intact cough reflex Grade III = aspiration of < 10 % of the bolus, reduced cough reflex or aspiration of > 10 % of the bolus, intact cough reflex Grade IV = aspiration of > 10 % of the bolus, reduced cough reflex - Penetration-Aspiration Scale Score Thin Liquid via teaspoon Result: 2= enter airway/above vocal folds/ejected Thin Liquid via teaspoon Trial 2 Result: 2= enter airway/above vocal folds/ejected Thin Liquid via sequential sips from cup Result: 2= enter airway/above vocal folds/ejected [place] Thick Liquid via large single sip from cup Result: 2= enter airway/above vocal folds/ejected Pudding via teaspoon wtih esophageal screen Result: 1= does not enter airway 1/2 Cookie Result: 1= does not enter airway Thin Liquid via single sip from straw Result: 7= enters airways/below vocal folds/not ejected despite effort Thin Liquid via small single sip from cup Result: 2= enter airway/above vocal folds/ejected - Oral Phase Labial Seal: Escape progressing to mid-chin - 1st trial via tsp administered by LYE PEEL OPERATOR, otherwise patient demonstrated good labial seal Tongue Control During Bolus Hold: Posterior escape of greater than half of bolus Bolus Preparation/Mastication: Slow prolonged chewing/mashing with complete recollection Bolus Transport/Lingual Motion: Repetitive/disorganized tongue motion Oral Residue: Residue collection on oral structures - kenna, pt effectively cleared with independent use of second swallow - Pharyngeal Phase Initiation of Pharyngeal Swallow: Bolus head in pyriforms Soft Palate Elevation: No bolus between soft palate and pharyngeal wall Laryngeal Elevation: Partial superior movement thyroid cart/partial apprx aryt-epig petiole Anterior Hyoid Excursion: Partial anterior movement Epiglottic Movement: Complete inversion Laryngeal Vestibule Closure at Height of Swallow: Incomplete; narrow column of air/contrast in laryngeal vestibule Pharyngeal Stripping Wave: Present - complete Pharyngoesophageal Segment Opening: Complete distension and complete duration; no obstruction of flow Tongue Base Retraction: Trace column of contrast between tongue base & post. pharyngeal wall Pharyngeal Residue: Trace residue within or on pharyngeal structures - Esophageal Phase Esophageal Clearance: Complete clearance - Diagnosis/Impression Diagnosis: Mild oropharyngeal phase dypshagia (R13.12) Impression: The oral phase is primarily marked by... -Decreased bolus control with >1/2 of the bolus spilling posteriorly to the pharynx prior to swallow onset observed with thin liquids especially. -Lingual pumping for A-P transport of pudding. -Mild oral residue after cookie, which cleared with independent initiation of a second swallow. -Prolonged, but adequate mastication of cookie trial. The pharyngeal phase is primarily marked by... -Decreased airway closure during the swallow due to mildly decreased anterior hyoid excursion and mildly decreased laryngeal elevation. -Delayed swallow onset. -Aspiration of thin liquids via straw. Consistent laryngeal penetration across thin and nectar thick liquid consistencies consumed via cup, which fully ejected from the laryngeal vestibule during the swallow. -Small CP bar present at the level of C4-5, which did not appear to impact bolus clearance through the upper esophageal sphincter. - Recommendations Diet: Regular Textures - Meats cut bite size, no mccoy per patient preference, Thin Liquids Compensatory Strategies: Small Bites, Small Sips, No Straws, Slow Rate, Sitting upright Supervision: Distant Supervision Recommend Repeat Modified Barium Swallow: TBD Need for Skilled Speech Therapy Services: Yes Comment: Will recommend the patient for skilled dysphagia therapy to address mild deficits in oropharyngeal swallow function. Will recommend the patient for oropharyngeal strengthening to improve lingual control, laryngeal elevation, hyoid excursion, and swallow onset (consider lingual resistance, CTAR, effortful breath hold and swallow, Gaby). The patient would benefit from thorough education regarding diet recommendations and recommended compensatory strategies. Education Completed: 1. Described result of evaluation., 2. Pt understands evaluation & agrees with goals and treatment plan., 7. Pt requires further education on strategies & risks. - Status Active ST Patient: Active - Contact Information [facility] Speech Therapy:: Laly Jones M.A. [facility]-LYE PEEL OPERATOR Speech-Language Pathologist [facility] [address] [place] [address] [email or web address] [phone] 01/30/23 12:29
[2023-01-30 14:00] VITALS: BP 128/48; PULSE 58; RESP 16; TEMP 36.4; O2SAT 92
[2023-01-30 15:00] VITALS: BP 128/48; PULSE 58; RESP 16; TEMP 36.4; O2SAT 92
[2023-01-30] MEDS: Clobetasol Propionate 0.05% Cream 1 APPLIC TOPICAL (16:20)
[2023-01-30] MEDS: Acetaminophen 500 MG Tablet 1000 MG PO (23:10)
[2023-01-30] MEDS: Atorvastatin Calcium 10 MG Tablet PO (23:11)
[2023-01-30] MEDS: Latanoprost 0.005% 1 Bottle 1 DRP OPHTHALMIC (23:11)
[2023-01-30] MEDS: MELATONIN 10 MG TABLET PO (23:12)
[2023-01-31] MEDS: BRIMONIDINE 0.2% 5ML BOTTLE 2 DRP OPHTHALMIC (06:40)
[2023-01-31] MEDS: Fluticasone/Salmeterol 232-14 Inhaler 1 PUFF INHALATION ×2 (06:40→17:52)
[2023-01-31] MEDS: Gabapentin 100 MG Capsule 200 MG PO ×2 (06:40→17:57)
[2023-01-31] MEDS: Umeclidinium Brm/Vilanterol 62.5-25 mcg Inh 1 PUFF INHALATION (06:40)
[2023-01-31] MEDS: Sertraline 50 MG Tablet 75 MG PO (06:41)
[2023-01-31] MEDS: Montelukast 10 MG Tablet PO (06:41)
[2023-01-31] MEDS: Allopurinol 100 MG Tablet 200 MG PO (06:41)
[2023-01-31] MEDS: Lisinopril 20 MG Tablet PO ×2 (06:42→17:53)
[2023-01-31] MEDS: Isosorbide Mononitrate 60 MG Tablet PO ×2 (06:42→17:52)
[2023-01-31] MEDS: Multivitamin (Healthy Eyes) Capsule 1 CAP PO ×2 (06:42→17:52)
[2023-01-31] MEDS: Senna/Docusate Sodium 1 Tablet PO ×2 (06:42→17:52)
[2023-01-31] MEDS: amLODIPine 5 MG Tablet PO (06:42)
[2023-01-31] MEDS: Cholecalciferol (VIT D3) 25 MCG TABLET (1,000 UNITS) PO (06:42)
[2023-01-31] MEDS: Clopidogrel Bisulfate 75 MG Tablet PO (06:43)
[2023-01-31] MEDS: Clobetasol Propionate 0.05% Cream 1 APPLIC TOPICAL ×2 (06:47→17:53)
[2023-01-31] MEDS: Multivitamins,Therapeutic Tablet 1 TABLET PO (08:16)
[2023-01-31] MEDS: Folic Acid 1 MG Tablet 2 MG PO (08:16)
[2023-01-31] MEDS: Aspirin E.C. 81 MG Tablet PO (08:16)
[2023-01-31 10:52] VITALS: BMI 24.0
[2023-01-31 12:45] VITALS: O2SAT 91
[2023-01-31 13:13] VITALS: BP 112/55; PULSE 70; RESP 17; TEMP 36.8; O2SAT 91
[2023-01-31] MEDS: Latanoprost 0.005% 1 Bottle 1 DRP OPHTHALMIC (20:02)
[2023-01-31] MEDS: MELATONIN 10 MG TABLET PO (20:04)
[2023-01-31] MEDS: Atorvastatin Calcium 10 MG Tablet PO (20:04)
[2023-02-01] MEDS: Fluticasone/Salmeterol 232-14 Inhaler 1 PUFF INHALATION ×2 (05:54→17:06)
[2023-02-01] MEDS: Umeclidinium Brm/Vilanterol 62.5-25 mcg Inh 1 PUFF INHALATION (05:54)
[2023-02-01] MEDS: Multivitamin (Healthy Eyes) Capsule 1 CAP PO ×2 (05:55→17:05)
[2023-02-01] MEDS: Allopurinol 100 MG Tablet 200 MG PO (05:55)
[2023-02-01] MEDS: Sertraline 50 MG Tablet 75 MG PO (05:56)
[2023-02-01] MEDS: Cholecalciferol (VIT D3) 25 MCG TABLET (1,000 UNITS) PO (05:56)
[2023-02-01] MEDS: Lisinopril 20 MG Tablet PO ×2 (05:57→17:05)
[2023-02-01] MEDS: amLODIPine 5 MG Tablet PO (05:57)
[2023-02-01] MEDS: Clopidogrel Bisulfate 75 MG Tablet PO (05:57)
[2023-02-01] MEDS: Montelukast 10 MG Tablet PO (05:57)
[2023-02-01] MEDS: Isosorbide Mononitrate 60 MG Tablet PO ×2 (05:58→17:05)
[2023-02-01] MEDS: Gabapentin 100 MG Capsule 200 MG PO ×2 (06:00→17:04)
[2023-02-01] MEDS: Clobetasol Propionate 0.05% Cream 1 APPLIC TOPICAL ×2 (06:03→17:06)
[2023-02-01] MEDS: BRIMONIDINE 0.2% 5ML BOTTLE 2 DRP OPHTHALMIC (06:04)
[2023-02-01 07:15] VITALS: O2SAT 89
--- NOTE | 2023-02-01 08:16 | CPS ---
O2 PLACED BACK IN PT'S NOSE. SATURATION TO 90%
[2023-02-01] MEDS: Aspirin E.C. 81 MG Tablet PO (08:45)
[2023-02-01] MEDS: Folic Acid 1 MG Tablet 2 MG PO (08:45)
[2023-02-01] MEDS: Multivitamins,Therapeutic Tablet 1 TABLET PO (08:45)
[2023-02-01 14:16] VITALS: BP 109/58; PULSE 88; RESP 20; TEMP 36.6; O2SAT 91
[2023-02-01] MEDS: Menthol/Lanolin/Calamine/Znox 113 GM Tube 1 APPLIC TOPICAL ×2 (14:24→17:10)
[2023-02-01] MEDS: Senna/Docusate Sodium 1 Tablet PO (17:05)
[2023-02-01] MEDS: Magnesium Hydroxide 30 ML UDC PO (17:09)
[2023-02-01 17:15] VITALS: BP 126/70; PULSE 64
[2023-02-01 20:00] VITALS: PULSE 87; RESP 18; O2SAT 94
[2023-02-01] MEDS: Latanoprost 0.005% 1 Bottle 1 DRP OPHTHALMIC (20:06)
[2023-02-01] MEDS: guaiFENesin Dm 10 ML UDC PO (20:06)
[2023-02-01] MEDS: MELATONIN 10 MG TABLET PO (20:07)
[2023-02-01] MEDS: Atorvastatin Calcium 10 MG Tablet PO (20:07)
[2023-02-01] MEDS: Acetaminophen 500 MG Tablet 1000 MG PO (22:53)
[2023-02-02] MEDS: BRIMONIDINE 0.2% 5ML BOTTLE 2 DRP OPHTHALMIC (04:56)
[2023-02-02] MEDS: Fluticasone/Salmeterol 232-14 Inhaler 1 PUFF INHALATION ×2 (04:57→17:20)
[2023-02-02] MEDS: Umeclidinium Brm/Vilanterol 62.5-25 mcg Inh 1 PUFF INHALATION (04:57)
[2023-02-02] MEDS: Clobetasol Propionate 0.05% Cream 1 APPLIC TOPICAL ×2 (04:59→17:20)
[2023-02-02] MEDS: BENZOCAINE/MENTHOL 1 LOZENGE MUCOUS MEM (04:59)
[2023-02-02] MEDS: Sertraline 50 MG Tablet 75 MG PO (04:59)
[2023-02-02] MEDS: Montelukast 10 MG Tablet PO (04:59)
[2023-02-02] MEDS: Clopidogrel Bisulfate 75 MG Tablet PO (04:59)
[2023-02-02] MEDS: Isosorbide Mononitrate 60 MG Tablet PO ×2 (04:59→17:21)
[2023-02-02] MEDS: amLODIPine 5 MG Tablet PO (04:59)
[2023-02-02] MEDS: Lisinopril 20 MG Tablet PO ×2 (04:59→17:21)
[2023-02-02] MEDS: guaiFENesin Dm 10 ML UDC PO (04:59)
[2023-02-02] MEDS: Cholecalciferol (VIT D3) 25 MCG TABLET (1,000 UNITS) PO (05:00)
[2023-02-02] MEDS: Allopurinol 100 MG Tablet 200 MG PO (05:00)
[2023-02-02] MEDS: Multivitamin (Healthy Eyes) Capsule 1 CAP PO ×2 (05:00→17:21)
[2023-02-02] MEDS: Gabapentin 100 MG Capsule 200 MG PO ×2 (05:03→17:21)
[2023-02-02] MEDS: Menthol/Lanolin/Calamine/Znox 113 GM Tube 1 APPLIC TOPICAL ×2 (05:09→17:21)
[2023-02-02] MEDS: Senna/Docusate Sodium 1 Tablet PO ×2 (05:11→17:21)
[2023-02-02] MEDS: Aspirin E.C. 81 MG Tablet PO (08:03)
[2023-02-02] MEDS: Folic Acid 1 MG Tablet 2 MG PO (08:03)
[2023-02-02 08:45] VITALS: PULSE 92; O2SAT 92
[2023-02-02 09:05] VITALS: O2SAT 93
[2023-02-02] MEDS: Multivitamins,Therapeutic Tablet 1 TABLET PO (10:00)
[2023-02-02 17:15] VITALS: BP 157/64; PULSE 60; RESP 18; TEMP 37.1
[2023-02-02] MEDS: MELATONIN 10 MG TABLET PO (21:57)
[2023-02-02] MEDS: Atorvastatin Calcium 10 MG Tablet PO (21:58)
[2023-02-02] MEDS: Latanoprost 0.005% 1 Bottle 1 DRP OPHTHALMIC (21:58)
[2023-02-03] MEDS: BRIMONIDINE 0.2% 5ML BOTTLE 2 DRP OPHTHALMIC (06:43)
[2023-02-03] MEDS: Umeclidinium Brm/Vilanterol 62.5-25 mcg Inh 1 PUFF INHALATION (06:43)
[2023-02-03] MEDS: Fluticasone/Salmeterol 232-14 Inhaler 1 PUFF INHALATION ×2 (06:43→17:19)
[2023-02-03] MEDS: Acetaminophen 500 MG Tablet 1000 MG PO (06:44)
[2023-02-03] MEDS: Sertraline 50 MG Tablet 75 MG PO (06:44)
[2023-02-03] MEDS: Clopidogrel Bisulfate 75 MG Tablet PO (06:45)
[2023-02-03] MEDS: Allopurinol 100 MG Tablet 200 MG PO (06:45)
[2023-02-03] MEDS: Montelukast 10 MG Tablet PO (06:45)
[2023-02-03] MEDS: Cholecalciferol (VIT D3) 25 MCG TABLET (1,000 UNITS) PO (06:46)
[2023-02-03] MEDS: Senna/Docusate Sodium 1 Tablet PO ×2 (06:46→17:20)
[2023-02-03] MEDS: Multivitamin (Healthy Eyes) Capsule 1 CAP PO ×2 (06:46→17:20)
[2023-02-03] MEDS: Menthol/Lanolin/Calamine/Znox 113 GM Tube 1 APPLIC TOPICAL ×2 (06:47→17:20)
[2023-02-03] MEDS: amLODIPine 5 MG Tablet PO (06:49)
[2023-02-03] MEDS: Lisinopril 20 MG Tablet PO ×2 (06:49→17:20)
[2023-02-03] MEDS: Isosorbide Mononitrate 60 MG Tablet PO ×2 (06:49→17:20)
[2023-02-03] MEDS: Gabapentin 100 MG Capsule 200 MG PO ×2 (06:53→17:20)
[2023-02-03] MEDS: Multivitamins,Therapeutic Tablet 1 TABLET PO (07:58)
[2023-02-03] MEDS: Aspirin E.C. 81 MG Tablet PO (07:58)
[2023-02-03] MEDS: Folic Acid 1 MG Tablet 2 MG PO (07:58)
[2023-02-03] MEDS: Clobetasol Propionate 0.05% Cream 1 APPLIC TOPICAL ×2 (07:58→17:19)
--- NOTE | 2023-02-03 10:35 | CASEMGMT ---
Social Work BIMS () and PHQ-9 (10/20) completed for MDS assessment. Jeanna Tuttle MSW LEGAL TRANSCRIBER
[2023-02-03 11:31] VITALS: BMI 32.4
[2023-02-03 14:51] VITALS: BP 120/54; PULSE 78; RESP 16; TEMP 36.1; O2SAT 91
--- NOTE | 2023-02-03 17:00 | RAD_ITS ---
STUDY: X-RAY CHEST REASON FOR EXAM: Female, 82 years old. Hypoxia. TECHNIQUE: PA and lateral views of the chest. COMPARISON: January 29, 2023. FINDINGS: The lungs are well expanded. There is chronic interstitial changes most marked at the right lung base without acute infiltrate or mass. There is no demonstrated pleural abnormality. Sternal cerclage wires are present from a prior sternotomy. The heart is normal in size. Normal mediastinum and iliana. Normal visualized pulmonary arteries. There is atherosclerotic tortuosity of the aortic arch and descending thoracic aorta. There are diffuse degenerative changes of the visualized thoracic spine. There is degenerative osteoarthritis of the bilateral shoulders. There is no demonstrated abnormality of the visualized soft tissue structures of the upper abdomen. RAD/Chest PA and Lateral IMPRESSION: No acute cardiopulmonary disease or major interval change. Electronically Signed: Nathanael Do DO at 20:02 EDT ,
[2023-02-03 17:25] VITALS: BP 146/51; PULSE 79
[2023-02-03] MEDS: MELATONIN 10 MG TABLET PO (23:04)
[2023-02-03] MEDS: Latanoprost 0.005% 1 Bottle 1 DRP OPHTHALMIC (23:04)
[2023-02-03] MEDS: Atorvastatin Calcium 10 MG Tablet PO (23:05)
[2023-02-04 05:45] LABS: Absolute Lymphocyte Count 1.51 X10^3/uL (0.83-4.51); Absolute Neutrophil Count 6.8 X10^3/uL (2.0-7.7); Basophil# 0.05 X10^3/uL; Basophil% 0.5 % (0-1); Eosinophil# 0.16 X10^3/uL; Eosinophils% 1.7 % (0-5); Hematocrit 32.8 % (37-47); Hemoglobin 10.6 g/dL (12.0-15.0); Lymphocyte # 1.51 X10^3/ul (0.83-4.51); Lymphocyte % 15.9 % (19-41); Mean Corp Hgb Conc 32.3 g/dL (32-36); Mean Corpuscular Volume 108.3 fL (81-99); Mean Platelet Vol. 11.8 fl (6.2-12.0); Monocyte# 0.96 X10^3/uL; Monocyte% 10.1 % (0-10); NRBC Flagged by Analyzer 0 % (0-5); Neutrophil % 71.5 % (47-70); Platelet Count 155 K/mm3 (150-450); RBC Distribution Width CV 13.8 % (11.6-14.6); RBC Distribution Width SD 55.2 fl (35.1-43.9); Red Blood Count 3.03 M/mm3 (4.2-5.4); White Blood Count 9.5 K/mm3 (4.4-11.0)
[2023-02-04 06:16] LABS: Anion Gap 6 (5-15); BUN 33 mg/dL (7-18); BUN/Creat Ratio 28.9 RATIO (10-20); Calcium,Total 9.7 mg/dL (8.5-10.1); Chloride 104 mmol/L (98-107); Creatinine, Serum 1.14 mg/dL (0.55-1.02); EST Glomerular Filtration Rate 49 mL/min (>60); Est Glom Filt Rate - Afr Amer 59 mL/min (>60); Estimated Creatinine Clearance 33.42 ml/min; Glucose 103 mg/dL (74-106); Potassium 4.3 mmol/L (3.5-5.1); Sodium Level 136 mmol/L (136-145)
[2023-02-04] MEDS: Umeclidinium Brm/Vilanterol 62.5-25 mcg Inh 1 PUFF INHALATION (06:46)
[2023-02-04] MEDS: Fluticasone/Salmeterol 232-14 Inhaler 1 PUFF INHALATION ×2 (06:47→17:56)
[2023-02-04] MEDS: Sertraline 50 MG Tablet 75 MG PO (06:48)
[2023-02-04] MEDS: Montelukast 10 MG Tablet PO (06:48)
[2023-02-04] MEDS: Senna/Docusate Sodium 1 Tablet PO (06:49)
[2023-02-04] MEDS: Clopidogrel Bisulfate 75 MG Tablet PO (06:49)
[2023-02-04] MEDS: Multivitamin (Healthy Eyes) Capsule 1 CAP PO ×2 (06:49→17:56)
[2023-02-04] MEDS: Cholecalciferol (VIT D3) 25 MCG TABLET (1,000 UNITS) PO (06:49)
[2023-02-04] MEDS: Isosorbide Mononitrate 60 MG Tablet PO ×2 (06:49→17:56)
[2023-02-04] MEDS: BRIMONIDINE 0.2% 5ML BOTTLE 2 DRP OPHTHALMIC (06:49)
[2023-02-04] MEDS: amLODIPine 5 MG Tablet PO (06:49)
[2023-02-04] MEDS: Lisinopril 20 MG Tablet PO ×2 (06:50→18:00)
[2023-02-04] MEDS: Allopurinol 100 MG Tablet 200 MG PO (06:50)
[2023-02-04] MEDS: Menthol/Lanolin/Calamine/Znox 113 GM Tube 1 APPLIC TOPICAL ×2 (06:51→17:59)
[2023-02-04] MEDS: Gabapentin 100 MG Capsule 200 MG PO ×2 (06:56→17:59)
[2023-02-04 06:58] VITALS: BP 119/48; PULSE 56
[2023-02-04] MEDS: Clobetasol Propionate 0.05% Cream 1 APPLIC TOPICAL ×2 (08:13→17:56)
[2023-02-04] MEDS: Folic Acid 1 MG Tablet 2 MG PO (08:14)
[2023-02-04] MEDS: Multivitamins,Therapeutic Tablet 1 TABLET PO (08:14)
[2023-02-04] MEDS: Aspirin E.C. 81 MG Tablet PO (08:14)
--- NOTE | 2023-02-04 10:31 | CASEMGMT ---
Social Work IDT met with patient, , dtr and gddtr for care plan meeting. Discussed patient's progress in PT/OT/ST/SN. Educated to [employer] insurance with NRD 02/06, EDC 02/09 with $0 noted copay. Pt is new on O2 and cannot physically assist. Offered family therapy training with dtr - dtr scheduled for 02/06. IDT recommending HHC PT/OT/ST/SN. No DME needs, unless O2 is needed. SW to continue to follow for DC planning. Jeanna Tuttle, FIELD ACCOUNT DIRECTOR PROFESSOR OF EXERCISE SCIENCE
[2023-02-04 11:44] VITALS: PULSE 55; O2SAT 91
[2023-02-04] MEDS: Tuberculin,Purif.prot.deriv. 50 TU/ML Vial 0.1 ML ID (11:53)
[2023-02-04 14:28] VITALS: BP 110/75; PULSE 65; RESP 16; TEMP 36.3; O2SAT 92
[2023-02-04] MEDS: Acetaminophen 500 MG Tablet 1000 MG PO (17:56)
[2023-02-04 18:03] VITALS: BP 149/50; PULSE 64
[2023-02-04] MEDS: Atorvastatin Calcium 10 MG Tablet PO (20:14)
[2023-02-04] MEDS: guaiFENesin Dm 10 ML UDC PO (20:14)
[2023-02-04] MEDS: MELATONIN 10 MG TABLET PO (20:14)
[2023-02-04] MEDS: Latanoprost 0.005% 1 Bottle 1 DRP OPHTHALMIC (20:14)
[2023-02-05] MEDS: Docusate Sodium 100 MG Capsule PO ×2 (05:32→18:41)
[2023-02-05] MEDS: Umeclidinium Brm/Vilanterol 62.5-25 mcg Inh 1 PUFF INHALATION (05:32)
[2023-02-05] MEDS: Fluticasone/Salmeterol 232-14 Inhaler 1 PUFF INHALATION ×2 (05:32→18:38)
[2023-02-05] MEDS: Gabapentin 100 MG Capsule 200 MG PO ×2 (05:32→18:38)
[2023-02-05] MEDS: Lisinopril 20 MG Tablet PO ×2 (05:33→18:42)
[2023-02-05] MEDS: amLODIPine 5 MG Tablet PO (05:33)
[2023-02-05] MEDS: BRIMONIDINE 0.2% 5ML BOTTLE 2 DRP OPHTHALMIC (05:33)
[2023-02-05] MEDS: Clopidogrel Bisulfate 75 MG Tablet PO (05:33)
[2023-02-05] MEDS: Allopurinol 100 MG Tablet 200 MG PO (05:33)
[2023-02-05] MEDS: Sertraline 50 MG Tablet 75 MG PO (05:33)
[2023-02-05] MEDS: Isosorbide Mononitrate 60 MG Tablet PO ×2 (05:33→18:38)
[2023-02-05] MEDS: Multivitamin (Healthy Eyes) Capsule 1 CAP PO ×2 (05:33→18:38)
[2023-02-05] MEDS: Montelukast 10 MG Tablet PO (05:33)
[2023-02-05] MEDS: Cholecalciferol (VIT D3) 25 MCG TABLET (1,000 UNITS) PO (05:33)
[2023-02-05] MEDS: Clobetasol Propionate 0.05% Cream 1 APPLIC TOPICAL ×2 (05:45→18:42)
[2023-02-05] MEDS: guaiFENesin Dm 10 ML UDC PO ×2 (05:59→23:45)
[2023-02-05] MEDS: Menthol/Lanolin/Calamine/Znox 113 GM Tube 1 APPLIC TOPICAL ×2 (06:30→18:38)
[2023-02-05] MEDS: Aspirin E.C. 81 MG Tablet PO (08:13)
[2023-02-05] MEDS: Folic Acid 1 MG Tablet 2 MG PO (08:13)
[2023-02-05] MEDS: Multivitamins,Therapeutic Tablet 1 TABLET PO (08:13)
[2023-02-05 10:00] VITALS: PULSE 55; RESP 18; O2SAT 99
[2023-02-05] MEDS: Acetaminophen 500 MG Tablet 1000 MG PO ×2 (13:02→21:59)
--- NOTE | 2023-02-05 14:52 | MDS.RN ---
Information for the mds was obtained from review of the clinical record, interview of resident, staff, and direct observation of resident's care .
[2023-02-05 15:31] VITALS: BP 141/73; PULSE 60; RESP 16; TEMP 35.7; O2SAT 95
[2023-02-05] MEDS: Atorvastatin Calcium 10 MG Tablet PO (21:18)
[2023-02-05] MEDS: MELATONIN 10 MG TABLET PO (21:18)
[2023-02-05] MEDS: Latanoprost 0.005% 1 Bottle 1 DRP OPHTHALMIC (21:18)
[2023-02-06 06:37] VITALS: BP 132/58; PULSE 83
[2023-02-06] MEDS: Menthol/Lanolin/Calamine/Znox 113 GM Tube 1 APPLIC TOPICAL ×2 (06:38→18:20)
[2023-02-06] MEDS: Umeclidinium Brm/Vilanterol 62.5-25 mcg Inh 1 PUFF INHALATION (06:38)
[2023-02-06] MEDS: Multivitamin (Healthy Eyes) Capsule 1 CAP PO ×2 (06:39→18:19)
[2023-02-06] MEDS: Sertraline 50 MG Tablet 75 MG PO (06:39)
[2023-02-06] MEDS: amLODIPine 5 MG Tablet PO (06:39)
[2023-02-06] MEDS: Fluticasone/Salmeterol 232-14 Inhaler 1 PUFF INHALATION ×2 (06:39→18:19)
[2023-02-06] MEDS: Montelukast 10 MG Tablet PO (06:40)
[2023-02-06] MEDS: Clopidogrel Bisulfate 75 MG Tablet PO (06:40)
[2023-02-06] MEDS: Allopurinol 100 MG Tablet 200 MG PO (06:40)
[2023-02-06] MEDS: Lisinopril 20 MG Tablet PO ×2 (06:40→18:19)
[2023-02-06] MEDS: Isosorbide Mononitrate 60 MG Tablet PO ×2 (06:40→18:19)
[2023-02-06] MEDS: Cholecalciferol (VIT D3) 25 MCG TABLET (1,000 UNITS) PO (06:40)
[2023-02-06] MEDS: BRIMONIDINE 0.2% 5ML BOTTLE 2 DRP OPHTHALMIC (06:42)
[2023-02-06] MEDS: Docusate Sodium 100 MG Capsule PO ×2 (06:45→18:19)
[2023-02-06] MEDS: Gabapentin 100 MG Capsule 200 MG PO ×2 (06:45→18:20)
[2023-02-06] MEDS: Aspirin E.C. 81 MG Tablet PO (07:35)
[2023-02-06] MEDS: Folic Acid 1 MG Tablet 2 MG PO (07:35)
[2023-02-06] MEDS: Multivitamins,Therapeutic Tablet 1 TABLET PO (07:35)
[2023-02-06 09:00] VITALS: O2SAT 97
[2023-02-06 09:01] VITALS: RESP 16; O2SAT 99
--- NOTE | 2023-02-06 09:24 | CASEMGMT ---
Social Work Dtr presented to this worker's office inquiring about DC date. Educated to insurance update this date with indication of EDC 02/09. SW to updated dtr once outcome is known. Discussed DC needs. No DME needs at DC, but SW educated to DME insurance approves.Dtr also inquiring about medical alert information. SW provided resources. IDT recommending skilled HHC. Dtr agreeable. SW offered skilled HHC list but dtr denied stating father used [facility] and was pleased. SW to coordinate HHC once DC date is known. Will continue to follow. AMIE PedersonW
--- NOTE | 2023-02-06 15:57 | CASEMGMT ---
Addendum entered by Jeanna Tuttle 02/06/23 16:58: SW received return call from dtr. Dtr does not have a preference of HHC agency - agreeable to [facility]. SW sent referral via [facility]. They can accept. Original Note: Social Work Insurance issued LCD 02/09, DC 02/10. SW met with pt and pt is agreeable to DC. SW phoned referral to [facility], but they do not have the nursing staffing. SW phoned dtr to update - left voicemail updating on new DC date and to select another [facility] agency. Nursing non-order entered to complete O2 testing 48 hours prior to DC to support O2 need. SW to send referral to [facility] once testing is completed. Plan: DC home with 02/10, C PT/OT/ST/SN/BARRERA, new O2 Jeanna Tuttle, AMIE CISNEROSW
[2023-02-06 16:00] VITALS: BP 130/53; PULSE 52; RESP 18; TEMP 35.9; O2SAT 95
[2023-02-06] MEDS: Acetaminophen 500 MG Tablet 1000 MG PO (18:19)
[2023-02-06] MEDS: Clobetasol Propionate 0.05% Cream 1 APPLIC TOPICAL (18:20)
--- NOTE | 2023-02-06 19:14 | DS.PCM_ITS ---
Providers Date of Admission: 01/27/23 Primary Care Physician: Dr. Steffany Rose MD Reason For Visit: AK1 ON CKD, FALLS, STREP MITIS BACTERMIA Diagnosis Discharge Diagnosis (1) Debility: Status: Acute Code(s): R53.81 - Other malaise (2) Falls: Status: Acute Code(s): W19.XXXA - Unspecified fall, initial encounter (3) Bacteremia: Status: Acute Code(s): R78.81 - Bacteremia (4) Acute kidney injury: Status: Acute Code(s): N17.9 - Acute kidney failure, unspecified (5) COPD (chronic obstructive pulmonary disease): Status: Chronic Code(s): J44.9 - Chronic obstructive pulmonary disease, unspecified (6) Hyperlipidemia: Status: Acute Code(s): E78.5 - Hyperlipidemia, unspecified (7) Gout: Status: Acute Code(s): M10.9 - Gout, unspecified (8) Glaucoma: Status: Acute Code(s): H40.9 - Unspecified glaucoma (9) Coronary artery disease: Status: Acute Code(s): I25.10 - Atherosclerotic heart disease of tejon coronary artery without angina pectoris (10) Depression: Status: Acute Code(s): F32.A - Depression, unspecified (11) Insomnia: Status: Acute Code(s): G47.00 - Insomnia, unspecified (12) Neuropathic pain: Status: Acute Code(s): M79.2 - Neuralgia and neuritis, unspecified Plan 82 year old female with below past medical history hospitalized for strep mitis bacteremia, complicated by acute kidney injury, COPD exacerbation, delirium, admitted to TCU with debility, here for rehabilitation, strengthening, prior to discharge home with . * Debility - PT/OT. * Pain - Tylenol 1000mg q6h prn pain (1-10). * Bowel - senna/colace 1 tablet bid, Dulcolax 10mg pr x 1 prn, MOM 30ml po x 1 prn. * Adult immunization - Administer pneumonia vaccine, covid19 vaccine, flu vaccine as appropriate. * DVT prophylaxis - Hold, on dual antiplatelet therapy. * COPD - Fluticasone/salmeterol 1 puff bid, Anoro 1 puff daily, Albuterol 1-2 puff q4h prn. * Gout - Allopurinol 200mg daily. * Hypertension - Lisinopril 20mg bid, Amlodipine 5mg daily. * Coronary artery disease - Lisinopril 20mg bid, Isosorbide MN 60mg bid, Plavix 75mg daily, Aspirin 81mg daily, NTG 0.4mg sl q5m prn. * Hyperlipidemia - Atorvastatin 10mg qhs. * Glaucoma - Brimonidine 2gtt ou daily, Latanoprost 1gtt ou qhs. * Psoriasis - Clobetasol topical bid. * Folate deficiency - Folic acid 2mg daily. * Neuropathic pain - Gabapentin 200mg bid. * Insomnia - Melatonin 10mg qhs. * Allergic rhinitis - Singulair 10mg daily. * Macular degeneration - Healthy Eyes 1 capsule bid. * Depression - Sertraline 75mg daily, stable chronic group home use, GDR not recommended. * Vitamin D deficiency - D3 25mcg daily. * Sore throat - Cepacol 1 lozenge q2h prn. Medications at Discharge Home Medications albuterol sulfate 90 mcg/actuation aerosol inhaler 1 - 2 puff inhalation Q4H PRN PRN Shortness Of Breath 10/10/15 folic acid 1 mg tablet 2 mg PO DAILY SUPPLEMENT 10/10/15 simvastatin 20 mg tablet 20 mg PO QHS CHOLESTEROL 10/10/15 allopurinol 100 mg tablet 200 mg PO DAILY GOUT 01/12/19 latanoprost 0.005 % eye drops 1 drp ophthalmic (eye) QPM GLAUCOMA 01/12/19 nitroglycerin 0.4 mg sublingual tablet 0.4 mg sublingual Q5-15M PRN CHEST PAIN 01/12/19 cholecalciferol (vitamin D3) 25 mcg (1,000 unit) tablet 25 mcg PO DAILY SUPPLEMENT 06/26/21 clobetasol 0.05 % topical cream 1 applic topical BID PSORIASES 06/26/21 brimonidine 0.1 % eye drops 2 drp ophthalmic (eye) DAILY EYE IRRITATION 07/11/21 aspirin 81 mg tablet,delayed release (Nora Low Dose Aspirin) 81 mg PO DAILY HEART HEALTH 10/08/21 docusate sodium 100 mg capsule (Colace) 100 mg PO BID PRN CONSTIPATION 10/08/21 multivitamin 1 tab PO DAILY HEALTH MAINTENANCE 10/08/21 vitamins A,C,A-yips-sxelvd 4,296 mcg-226 mg-90 mg capsule (PreserVision AREDS) 1 cap PO BID EYE HEALTH 12/09/21 budesonide-formoterol HFA 160 mcg-4.5 mcg/actuation aerosol inhaler (Symbicort) 1 inh inhalation BID COPD 01/22/23 calcipotriene 0.005 % topical cream 1 applic topical DAILY PRN PSORIASES 01/22/23 clopidogrel 75 mg tablet (Plavix) 75 mg PO DAILY BLOOD THINNER 01/22/23 isosorbide mononitrate 60 mg tablet,extended release 24 hr 60 mg PO BID BLOOD PRESSURE 01/22/23 lisinopril 10 mg tablet 20 mg PO BID BLOOD PRESSURE 01/22/23 montelukast 10 mg tablet 10 mg PO DAILY ALLERGIES 01/22/23 netarsudil 0.02 % eye drops (Rhopressa) 1 drp EACH EYE DAILY GLAUCOMA 01/22/23 tiotropium 2.5 mcg-olodaterol 2.5 mcg/actuation mist for inhalation (Stiolto Respimat) 2 inh inhalation DAILY COPD 01/22/23 gabapentin 100 mg capsule 200 mg PO BID Pain 01/27/23 melatonin 10 mg sublingual tablet 10 mg PO QHS Sleep 01/27/23 sertraline 50 mg tablet 75 mg PO DAILY Mood 01/27/23 acetaminophen 500 mg tablet 1,000 mg PO Q6H PRN PRN Pain Score 1-10 #0 tabs 02/06/23 amlodipine 5 mg tablet 5 mg PO DAILY 30 days #30 tabs 02/06/23 Hospital Course Operations None Procedures None Summary of Care Provided Minutes Spent on Discharge: 35 Hospital Course: 82 year old female with below past medical history hospitalized for strep mitis bacteremia, complicated by acute kidney injury, COPD exacerbation, delirium, admitted to TCU with debility, here for rehabilitation, strengthening, prior to discharge home with . Discharge home with 02/10/2023, Home Health Care PT/OT/ST/SN/BARRERA, new O2. Physical Exam Const alert General Appearance: cooperative HEENT normocephalic Eyes PERRL and EOMs intact bilaterally Neck supple, no JVD and no carotid bruits Resp normal respiratory effort, normal air movement and clear to auscultation bilaterally Cardio regular rate and regular rhythm GI normal to inspection, nondistended, normoactive bowel sounds, non-tender and non-distended Extremity normal capillary refill General Extremity: Negative for edema Skin no rashes or lesions noted General Skin Exam: no breakdown Psych affect normal Appearance: appropriate Weight / BMI Weight Weight: 86.273 kg Body Mass Index (BMI) 32.4 ABG / Lab / Microbiology Data Result Diagrams: 02/04/23 05:18 02/04/23 05:18 Microbiology: Microbiology 01/31/23 06:50 Nasal Secretion SARS-CoV-2 Antigen (Rapid) - Final 01/29/23 06:55 Nasal Secretion SARS-CoV-2 Antigen (Rapid) - Final D/C Instructions Discharge Diet: No restrictions Discharge Activity: Return to Normal Activity, May Shower and Use Walker Weight Bearing Status: Weight bearing as tolerated Call your doctor if you observe: Fever of 101 or Higher, Inability to urinate, Inability to have a bowel movement, Shortness of breath, Dizziness, Fainting spells, Swelling in the ankles, Chest pain and Uncontrolled pain Additional Instructions: Discharge home with 02/10/2023, Home Health Care PT/OT/ST/SN/BARRERA, new O2. Meaningful Use Info Meaningful Use Diagnoses (Choose all that apply): None applicable Discharge Plan Admission Admit Date/Time: 01/27/23 17:50 Primary Reason for Your Visit: Debility. Attending Provider: Thomas Duffy Chi Primary Care Provider: Steffany Rose Instructions Additional Instructions / Restrictions: Discharge home with 02/10/2023, Home Health Care PT/OT/ST/SN/BARRERA, new O2. Discharge Orders/Prescriptions Prescriptions: New acetaminophen 500 mg Tablet 1,000 mg PO Q6H PRN PRN (Reason: Pain Score 1-10) Qty: 0 0RF amlodipine 5 mg Tablet 5 mg PO DAILY 30 Days Qty: 30 0RF Continued latanoprost 0.005 % drops 1 drp OPHTHALMIC QPM nitroglycerin 0.4 mg tablet, sublingual 0.4 mg SUBLINGUAL Q5-15M PRN (Reason: CHEST PAIN ) docusate sodium [Colace] 100 mg capsule 100 mg PO BID PRN (Reason: CONSTIPATION ) brimonidine 0.1 % drops 2 drp ophthalmic (eye) DAILY cholecalciferol (vitamin D3) 25 mcg (1,000 unit) tablet 25 mcg PO DAILY clobetasol 0.05 % cream 1 applic topical BID aspirin [Nora Low Dose Aspirin] 81 mg tablet,delayed release (DR/EC) 81 mg PO DAILY multivitamin Tablet 1 tab PO DAILY simvastatin 20 MG tablet 20 mg PO QHS folic acid 1 MG tablet 2 mg PO DAILY albuterol sulfate 1 INHALER inhaler 1 - 2 puff inhalation Q4H PRN PRN (Reason: Shortness Of Breath) allopurinol 100 mg tablet 200 mg PO DAILY calcipotriene 0.005 % Cream 1 applic TOPICAL DAILY PRN (Reason: PSORIASES) Rx Instructions: rub in gently and completely lisinopril 10 mg Tablet 20 mg PO BID montelukast 10 mg tablet 10 mg PO DAILY budesonide-formoterol [Symbicort] 160-4.5 mcg/actuation HFA aerosol inhaler 1 inh inhalation BID Rhopressa 0.02 % Drops 1 drp EACH EYE DAILY clopidogrel [Plavix] 75 mg tablet 75 mg PO DAILY isosorbide mononitrate 60 mg tablet extended release 24 hr 60 mg PO BID Stiolto Respimat 2.5-2.5 mcg/actuation mist 2 inh inhalation DAILY gabapentin 100 mg capsule 200 mg PO BID sertraline 50 mg tablet 75 mg PO DAILY melatonin 10 mg tablet, sublingual 10 mg PO QHS PreserVision AREDS [phone] [id number] capsule 1 cap PO BID Discontinued acetaminophen 500 mg tablet 500 mg PO Q8H PRN (Reason: PAIN ) amlodipine 5 mg tablet 5 mg PO DAILY Referrals / Follow Up: Steffany Rose MD [Primary Care Provider] - Disposition Disposition (needs filled in before D/C Order can be placed): Home Health Service
[2023-02-06] MEDS: MELATONIN 10 MG TABLET PO (21:02)
[2023-02-06] MEDS: Atorvastatin Calcium 10 MG Tablet PO (21:02)
[2023-02-06] MEDS: Latanoprost 0.005% 1 Bottle 1 DRP OPHTHALMIC (21:02)
[2023-02-07] MEDS: Acetaminophen 500 MG Tablet 1000 MG PO ×2 (00:20→22:27)
[2023-02-07] MEDS: Umeclidinium Brm/Vilanterol 62.5-25 mcg Inh 1 PUFF INHALATION (06:19)
[2023-02-07] MEDS: Allopurinol 100 MG Tablet 200 MG PO (06:24)
[2023-02-07] MEDS: Lisinopril 20 MG Tablet PO ×2 (06:24→17:27)
[2023-02-07] MEDS: Isosorbide Mononitrate 60 MG Tablet PO ×2 (06:24→17:27)
[2023-02-07] MEDS: Sertraline 50 MG Tablet 75 MG PO (06:24)
[2023-02-07] MEDS: Cholecalciferol (VIT D3) 25 MCG TABLET (1,000 UNITS) PO (06:24)
[2023-02-07] MEDS: Clopidogrel Bisulfate 75 MG Tablet PO (06:24)
[2023-02-07] MEDS: amLODIPine 5 MG Tablet PO (06:24)
[2023-02-07] MEDS: Multivitamin (Healthy Eyes) Capsule 1 CAP PO ×2 (06:24→17:27)
[2023-02-07] MEDS: Montelukast 10 MG Tablet PO (06:25)
[2023-02-07] MEDS: BRIMONIDINE 0.2% 5ML BOTTLE 2 DRP OPHTHALMIC (06:26)
[2023-02-07] MEDS: Fluticasone/Salmeterol 232-14 Inhaler 1 PUFF INHALATION ×2 (06:27→17:25)
[2023-02-07] MEDS: Menthol/Lanolin/Calamine/Znox 113 GM Tube 1 APPLIC TOPICAL ×2 (06:27→17:23)
[2023-02-07] MEDS: Clobetasol Propionate 0.05% Cream 1 APPLIC TOPICAL ×2 (06:28→17:26)
[2023-02-07] MEDS: Gabapentin 100 MG Capsule 200 MG PO ×2 (06:32→17:27)
[2023-02-07 06:42] VITALS: O2SAT 92
[2023-02-07] MEDS: Multivitamins,Therapeutic Tablet 1 TABLET PO (08:37)
[2023-02-07] MEDS: Folic Acid 1 MG Tablet 2 MG PO (08:37)
[2023-02-07] MEDS: Aspirin E.C. 81 MG Tablet PO (08:37)
[2023-02-07 14:47] VITALS: O2SAT 93
[2023-02-07 15:10] VITALS: BP 138/49; PULSE 62; RESP 17; TEMP 35.5; O2SAT 93
[2023-02-07] MEDS: Docusate Sodium 100 MG Capsule PO (17:31)
[2023-02-07] MEDS: Atorvastatin Calcium 10 MG Tablet PO (22:28)
[2023-02-07] MEDS: MELATONIN 10 MG TABLET PO (22:28)
[2023-02-07] MEDS: Latanoprost 0.005% 1 Bottle 1 DRP OPHTHALMIC (22:30)
[2023-02-07 22:32] VITALS: PULSE 80; RESP 14; O2SAT 95
[2023-02-08 04:05] VITALS: BP 153/45; PULSE 60
[2023-02-08] MEDS: Isosorbide Mononitrate 60 MG Tablet PO ×2 (04:22→17:13)
[2023-02-08] MEDS: Lisinopril 20 MG Tablet PO ×2 (04:22→17:13)
[2023-02-08] MEDS: Clopidogrel Bisulfate 75 MG Tablet PO (04:22)
[2023-02-08] MEDS: Multivitamin (Healthy Eyes) Capsule 1 CAP PO ×2 (04:22→17:13)
[2023-02-08] MEDS: Cholecalciferol (VIT D3) 25 MCG TABLET (1,000 UNITS) PO (04:22)
[2023-02-08] MEDS: Montelukast 10 MG Tablet PO (04:22)
[2023-02-08] MEDS: Allopurinol 100 MG Tablet 200 MG PO (04:22)
[2023-02-08] MEDS: Sertraline 50 MG Tablet 75 MG PO (04:23)
[2023-02-08] MEDS: Umeclidinium Brm/Vilanterol 62.5-25 mcg Inh 1 PUFF INHALATION (04:24)
[2023-02-08] MEDS: Fluticasone/Salmeterol 232-14 Inhaler 1 PUFF INHALATION ×2 (04:24→17:13)
[2023-02-08] MEDS: amLODIPine 5 MG Tablet PO (04:24)
[2023-02-08] MEDS: Gabapentin 100 MG Capsule 200 MG PO ×2 (04:28→17:13)
[2023-02-08] MEDS: Docusate Sodium 100 MG Capsule PO ×2 (04:29→17:13)
[2023-02-08] MEDS: Magnesium Hydroxide 30 ML UDC PO (04:29)
[2023-02-08] MEDS: BRIMONIDINE 0.2% 5ML BOTTLE 2 DRP OPHTHALMIC (04:30)
[2023-02-08] MEDS: Menthol/Lanolin/Calamine/Znox 113 GM Tube 1 APPLIC TOPICAL ×2 (04:30→17:13)
[2023-02-08] MEDS: Multivitamins,Therapeutic Tablet 1 TABLET PO (07:37)
[2023-02-08] MEDS: Aspirin E.C. 81 MG Tablet PO (07:38)
[2023-02-08] MEDS: Folic Acid 1 MG Tablet 2 MG PO (07:38)
[2023-02-08 08:57] VITALS: BP 98/35; PULSE 58; RESP 17; TEMP 36.1; O2SAT 95
--- NOTE | 2023-02-08 11:00 | NURSING ---
Patient ambulated to BR w/o O2, maintained 95% will continue to monitor for oxygen needs
[2023-02-08 12:01] VITALS: O2SAT 94
[2023-02-08 17:08] VITALS: BP 160/62; PULSE 84
[2023-02-08] MEDS: Clobetasol Propionate 0.05% Cream 1 APPLIC TOPICAL (17:13)
[2023-02-08] MEDS: Atorvastatin Calcium 10 MG Tablet PO (22:39)
[2023-02-08] MEDS: Acetaminophen 500 MG Tablet 1000 MG PO (22:39)
[2023-02-08] MEDS: Latanoprost 0.005% 1 Bottle 1 DRP OPHTHALMIC (22:40)
[2023-02-08] MEDS: MELATONIN 10 MG TABLET PO (22:40)
[2023-02-09] MEDS: Fluticasone/Salmeterol 232-14 Inhaler 1 PUFF INHALATION ×2 (06:27→17:59)
[2023-02-09] MEDS: Clobetasol Propionate 0.05% Cream 1 APPLIC TOPICAL ×2 (06:27→18:02)
[2023-02-09] MEDS: Umeclidinium Brm/Vilanterol 62.5-25 mcg Inh 1 PUFF INHALATION (06:27)
[2023-02-09] MEDS: Lisinopril 20 MG Tablet PO ×2 (06:28→18:01)
[2023-02-09] MEDS: Montelukast 10 MG Tablet PO (06:28)
[2023-02-09] MEDS: Sertraline 50 MG Tablet 75 MG PO (06:28)
[2023-02-09] MEDS: Cholecalciferol (VIT D3) 25 MCG TABLET (1,000 UNITS) PO (06:28)
[2023-02-09] MEDS: Allopurinol 100 MG Tablet 200 MG PO (06:28)
[2023-02-09] MEDS: Clopidogrel Bisulfate 75 MG Tablet PO (06:28)
[2023-02-09] MEDS: amLODIPine 5 MG Tablet PO (06:29)
[2023-02-09] MEDS: Isosorbide Mononitrate 60 MG Tablet PO ×2 (06:29→18:03)
[2023-02-09] MEDS: Multivitamin (Healthy Eyes) Capsule 1 CAP PO ×2 (06:29→18:02)
[2023-02-09] MEDS: BRIMONIDINE 0.2% 5ML BOTTLE 2 DRP OPHTHALMIC (06:30)
[2023-02-09] MEDS: Menthol/Lanolin/Calamine/Znox 113 GM Tube 1 APPLIC TOPICAL ×2 (06:30→18:00)
[2023-02-09] MEDS: Gabapentin 100 MG Capsule 200 MG PO ×2 (06:35→18:07)
[2023-02-09] MEDS: Docusate Sodium 100 MG Capsule PO ×2 (06:41→18:11)
[2023-02-09 06:46] VITALS: O2SAT 90
[2023-02-09] MEDS: Aspirin E.C. 81 MG Tablet PO (08:34)
[2023-02-09] MEDS: Folic Acid 1 MG Tablet 2 MG PO (08:35)
[2023-02-09] MEDS: Multivitamins,Therapeutic Tablet 1 TABLET PO (08:35)
[2023-02-09 11:43] VITALS: O2SAT 88; O2SAT 90; O2SAT 96
[2023-02-09 15:35] VITALS: BP 136/57; PULSE 67; RESP 19; TEMP 35.9; O2SAT 97
[2023-02-09] MEDS: MELATONIN 10 MG TABLET PO (21:30)
[2023-02-09] MEDS: Atorvastatin Calcium 10 MG Tablet PO (21:30)
[2023-02-09] MEDS: Latanoprost 0.005% 1 Bottle 1 DRP OPHTHALMIC (21:32)
[2023-02-09 21:34] VITALS: PULSE 58; RESP 18; O2SAT 95
[2023-02-10] MEDS: Acetaminophen 500 MG Tablet 1000 MG PO (01:25)
[2023-02-10] MEDS: Docusate Sodium 100 MG Capsule PO (06:15)
[2023-02-10] MEDS: Gabapentin 100 MG Capsule 200 MG PO (06:15)
[2023-02-10] MEDS: Umeclidinium Brm/Vilanterol 62.5-25 mcg Inh 1 PUFF INHALATION (06:16)
[2023-02-10] MEDS: amLODIPine 5 MG Tablet PO (06:17)
[2023-02-10] MEDS: Montelukast 10 MG Tablet PO (06:17)
[2023-02-10] MEDS: Multivitamin (Healthy Eyes) Capsule 1 CAP PO (06:17)
[2023-02-10] MEDS: Isosorbide Mononitrate 60 MG Tablet PO (06:17)
[2023-02-10] MEDS: Lisinopril 20 MG Tablet PO (06:17)
[2023-02-10] MEDS: Clopidogrel Bisulfate 75 MG Tablet PO (06:17)
[2023-02-10] MEDS: Cholecalciferol (VIT D3) 25 MCG TABLET (1,000 UNITS) PO (06:17)
[2023-02-10] MEDS: Sertraline 50 MG Tablet 75 MG PO (06:17)
[2023-02-10] MEDS: BRIMONIDINE 0.2% 5ML BOTTLE 2 DRP OPHTHALMIC (06:17)
[2023-02-10] MEDS: Menthol/Lanolin/Calamine/Znox 113 GM Tube 1 APPLIC TOPICAL (06:18)
[2023-02-10] MEDS: Allopurinol 100 MG Tablet 200 MG PO (06:18)
[2023-02-10] MEDS: Fluticasone/Salmeterol 232-14 Inhaler 1 PUFF INHALATION (06:18)
[2023-02-10] MEDS: Clobetasol Propionate 0.05% Cream 1 APPLIC TOPICAL (06:21)
[2023-02-10 06:25] VITALS: BP 142/74; PULSE 60
[2023-02-10 07:36] VITALS: O2SAT 88
--- NOTE | 2023-02-10 07:37 | CPS ---
Pt was on room air when RT entered room, Rt checked pt pulse ox, SPO2 was 88%. Rt placed pt back on 1L O2
[2023-02-10] MEDS: Folic Acid 1 MG Tablet 2 MG PO (08:02)
[2023-02-10] MEDS: Multivitamins,Therapeutic Tablet 1 TABLET PO (08:02)
[2023-02-10] MEDS: Aspirin E.C. 81 MG Tablet PO (08:02)
[2023-02-10 10:00] VITALS: O2SAT 93
--- NOTE | 2023-02-10 10:35 | CASEMGMT ---
Social Work BIMS and PHQ-9 completed for MDS assessment. kaur kwok, OR ASSISTANT SALES MANAGER
--- NOTE | 2023-02-10 12:00 | NURSING ---
Pt and family given money out of lock box. Counted $117.00 and given to pt who place in her purple purse.
[2023-02-10 12:45] VITALS: BP 143/67; PULSE 62; RESP 16; TEMP 36; O2SAT 97
== END 2023-02-10 12:55 | disposition home health service (06) | DRG 872 ==
PROVIDERS: Admitting Provider Family Medicine Geriatric Medicine; PCP Internal Medicine; Visit Provider Family Medicine Geriatric Medicine
DX: R78.81 Bacteremia (principal); J44.1 Chronic obstructive pulmonary disease with (acute) exacerbation; N17.9 Acute kidney failure, unspecified; N18.30 Chronic kidney disease, stage 3 unspecified; M79.2 Neuralgia and neuritis, unspecified; G62.9 Polyneuropathy, unspecified; E55.9 Vitamin D deficiency, unspecified; E53.8 Deficiency of other specified B group vitamins; I25.10 Atherosclerotic heart disease of native coronary artery without angina pectoris; H35.30 Unspecified macular degeneration; J30.9 Allergic rhinitis, unspecified; I12.9 Hypertensive chronic kidney disease with stage 1 through stage 4 chronic kidney disease, or unspecified chronic kidney disease; M10.9 Gout, unspecified; E78.00 Pure hypercholesterolemia, unspecified; F41.9 Anxiety disorder, unspecified; L40.9 Psoriasis, unspecified; B95.5 Unspecified streptococcus as the cause of diseases classified elsewhere; Z79.82 Long term (current) use of aspirin; Z79.51 Long term (current) use of inhaled steroids; Z87.891 Personal history of nicotine dependence; H40.9 Unspecified glaucoma; Z79.02 Long term (current) use of antithrombotics/antiplatelets; G47.00 Insomnia, unspecified; Z79.899 Other long term (current) drug therapy; F32.A Depression, unspecified
CPT/HCPCS: 36415; 71046; 74230; 80048; 85025; 87811; 92507; 92524; 92526; 92610; 92611; 97110; 97116; 97162; 97166; 97530; 97535; 97802

== ENCOUNTER → 2023-04-29 | Outpatient (CLI) | payer MEDICARE, SELFPAY ==
[2023-04-29 11:10] LABS: Absolute Lymphocyte Count 1.09 X10^3/uL (0.83-4.51); Absolute Neutrophil Count 5.2 X10^3/uL (2.0-7.7); Basophil# 0.04 X10^3/uL; Basophil% 0.6 % (0-1); Eosinophil# 0.18 X10^3/uL; Eosinophils% 2.5 % (0-5); Hematocrit 37.3 % (37-47); Hemoglobin 12.2 g/dL (12.0-15.0); Lymphocyte # 1.09 X10^3/ul (0.83-4.51); Lymphocyte % 15.1 % (19-41); Mean Corp Hgb Conc 32.7 g/dL (32-36); Mean Corpuscular Hgb 35.1 pg (27.0-32.0); Mean Corpuscular Volume 107.2 fL (81-99); Mean Platelet Vol. 11.6 fl (6.2-12.0); Monocyte# 0.73 X10^3/uL; Monocyte% 10.1 % (0-10); NRBC Flagged by Analyzer 0 % (0-5); Neutrophil # 5.18 X10^3/uL (2.7-7.7); Neutrophil % 71.4 % (47-70); Platelet Count 175 K/mm3 (150-450); RBC Distribution Width CV 14.7 % (11.6-14.6); RBC Distribution Width SD 58.5 fl (35.1-43.9); Red Blood Count 3.48 M/mm3 (4.2-5.4); White Blood Count 7.2 K/mm3 (4.4-11.0)
[2023-04-29 11:29] LABS: Anion Gap 7 (5-15); BUN 30 mg/dL (7-18); BUN/Creat Ratio 23.6 RATIO (10-20); Calcium,Total 9.4 mg/dL (8.5-10.1); Chloride 107 mmol/L (98-107); Creatinine, Serum 1.27 mg/dL (0.55-1.02); EST Glomerular Filtration Rate 43 mL/min (>60); Est Glom Filt Rate - Afr Amer 52 mL/min (>60); Glucose 129 mg/dL (74-106); Sodium Level 141 mmol/L (136-145)
[2023-04-29 11:30] LABS: BNP,B-Type NATRIURETIC PEPTIDE 215.4 pg/mL (0-100)
== END | disposition home or self-care (01) ==
LOC: LAB 10:30
PROVIDERS: PCP Internal Medicine; Referring Provider Nurse Practitioner Gerontology; Visit Provider Nurse Practitioner Gerontology
DX: R06.09 Other forms of dyspnea (principal)
CPT/HCPCS: 36415; 80048; 83880; 85025

== ENCOUNTER → 2023-05-12 | Outpatient (CLI) | payer MEDICARE, SELFPAY ==
--- NOTE | 2023-05-12 10:30 | PET_ITS ---
EXAMINATION: FDG PET-CT INDICATIONS: An 83-year-old female with history of pulmonary nodularity. COMPARISON EXAMINATION: Prior FDG PET study dated 01/08/21 INDEX LESION SIZE SUV INTERPRETATION PERSISTENT: left upper lung field (n=2) 1.3 (max) comp to 0.5 (01/08/21) Quantitative criteria for viable neoplasm are not fulfilled, sequential radiologic investigation recommended TECHNIQUE: Following the intravenous administration of 14.42 mCi of F-18 deoxyglucose via the left hand, multiplanar image acquisitions of the neck, chest, abdomen and pelvis to level of mid thigh, obtained at one hour post radiopharmaceutical administration contemporaneously interpreted with the current CT of the neck, chest, abdomen and pelvis, to level of mid thigh, dated 05/12/23 via coregistration and prior FDG PET study dated 01/08/21 reveals: BLOOD GLUCOSE LEVEL:?? 107 mg/dl?HEIGHT:?61 inches?WEIGHT: 190 lbs. FINDINGS: Head/Neck: There is no evidence of abnormal increased glucose metabolism in the pharyngeal mucosal space, parapharyngeal space, bilateral-lateral and anterior neck, hypopharynx and distribution of the laryngeal structures. The visualized portion of the cerebral cortical-subcortical structures demonstrate symmetric and preserved glucose metabolism. CHEST: Persistent facilitated radiopharmaceutical concentration is subtly apparent in the left lower anterolateral and left upper posterolateral lung zones. The calculated maximal standard uptake value is 1.3, compared to 0.5. Prominent radiopharmaceutical concentration is identified in the left ventricular myocardium commensurate with the [place]. Pertinent chest CT findings are as follows. Additional calcified and non-calcified densities noted in the bilateral hemithorax are ametabolic. There is atherosclerotic calcification defined in the thoracic aorta without evidence of dilatation-aneurysm formation. Coronary arterial calcification is observed. Bilateral axillary and scattered mediastinal soft tissue densities are ametabolic. There is evidence of prior median sternotomy. The parenchymal density noted in the right lower posterior lung zone is ametabolic. Abdomen/Pelvis: Normal physiologic distribution of the radiopharmaceutical is apparent in the hepatic (3.8) and splenic parenchyma, both renal units, bladder and visualized intestinal tract. Pertinent abdomen and pelvis CT findings are as follows. There is atherosclerotic calcification defined in the abdominal aorta without evidence of dilatation-aneurysm formation. Abdominal-pelvic arterial calcification is encountered. Colonic diverticulosis is noted without evidence of diverticulitis. Post-procedural change is noted in the bilateral anterior hemipelvic wall. A fat containing ventral hernia is noted in the lower anterior pelvis. Calcification is noted in the bilateral renal units. Cyst formation is defined in the bilateral kidneys. Calcified granuloma formation is noted in the splenic parenchyma. Skeletal: Degenerative changes are noted in the cervical, thoracic and lumbar spine without evidence of increased radiopharmaceutical concentration. PET/PET/CT Tumor Base -Thigh Init IMPRESSION: 1. NEGATIVE EXAMINATION. There is no definitive quantitative scintigraphic evidence of viable neoplasm. 2. Enhanced radiopharmaceutical concentration defined in the left hemithorax pulmonary parenchyma in two separate locations do not fulfill quantitative criteria for malignant transformation. (Ann et al, Annals of Internal Medicine, 138:724, 2003). 3. Metabolic and/or anatomic stability may be ensured in the left hemithorax pulmonary parenchymal abnormalities with repeat FDG PET-CT and/or CT of the thorax in 6-9 months if clinically indicated. (Xiu, Journal of Nuclear Medicine 45:88, P2004 Clement, Seminars in Thoracic and Cardiovascular Surgery 14:292, 2002). 4. Overall, compared to the prior FDG PET study dated 01/08/21, there is current absence of defined viable neoplastic disease. Electronic Signature Yair Aguilera D.O. Accurate Quantification of SUVs for this report are calculated using the exclusive [employer], ([place] Patent No. [id number] [id number] [phone] [id number] [phone] patent [phone] [id number] [id number] ). Standardization and correction of the FDG SUV metric exclusively available with [employer] intellectual property, allow for vendor non-specific objective quantitative sequential FDG PET-CT comparison and otherwise unobtainable optimization of the sensitivity and specificity of the examination. [email or web address] Electronically Signed: Yair Aguilera DO at 22:17 EDT ,
== END | disposition home or self-care (01) ==
LOC: ONC 09:55
PROVIDERS: PCP Internal Medicine
DX: R91.1 Solitary pulmonary nodule (principal)
CPT/HCPCS: 78815; A9552

== ENCOUNTER 2023-07-04 16:26 | Emergency (ER) | payer MEDICARE, SELFPAY ==
[2023-07-04 16:27] VITALS: BP 156/71; PULSE 89; RESP 14; TEMP 36.4; O2SAT 99
--- NOTE | 2023-07-04 16:44 | CT_ITS ---
STUDY: CT BRAIN WITHOUT CONTRAST REASON FOR EXAM: Female, 83 years old. confusion RADIATION DOSAGE (If Supplied By Facility): CTDIvol = ( 44.99 ) mGy, DLP = ( 829.85 ) mGycm TECHNIQUE: Transaxial CT imaging of the brain was performed without administration of intravenous contrast material. Individualized dose optimization techniques were used for this CT. COMPARISON: 04/21/2023 FINDINGS: Normal soft tissue structures. Normal calvarium. There is mild cerebral atrophy with widening of the extra-axial spaces and ventricular dilatation. There are areas of decreased attenuation within the white matter tracts of the supratentorial brain, consistent with microvascular disease changes. Old right basal ganglia lacunar infarction. Normal brainstem. Normal cerebellum. There is no intracranial hemorrhage. There are no findings of an acute ischemic infarction. Normal visualized paranasal sinuses. CT/Brain/Head without Contrast IMPRESSION: 1. No acute intracranial hemorrhage or mass effect. 2. Central parenchymal volume loss. White matter changes that are nonspecific but most commonly associated with chronic small vessel ischemic disease. Electronically Signed: Roberto Pastrana MD ([place]) at 18:44 EST ,
--- NOTE | 2023-07-04 16:44 | EKG12_ITS ---
Test Reason : ALT LOC Blood Pressure : / mmHG Vent. Rate : 074 BPM Atrial Rate : 074 BPM P-R Int : 192 ms QRS Dur : 092 ms QT Int : 392 ms P-R-T Axes : 080 044 031 degrees QTc Int : 435 ms Sinus rhythm with marked sinus arrhythmia with occasional Premature ventricular complexes Otherwise normal ECG Confirmed by TARIQ PAYNE, LIZA ([id number]), research editor ALEXANDER MCDOWELL ([id number]) on 07/15/2023 9:53:47 AM Referred By: Confirmed By:LIZA POTTER MD
--- NOTE | 2023-07-04 16:48 | EX.ED.DYSGE1 ---
HPI History of Present Illness Chief Complaint: Alt LOC Informant: patient and family Narrative Narrative: Patient presents with worsening of confusion. History is through patient but mostly through the daughter. This patient is been having confusion over the last couple months. She does have a history of lung cancer. She also has COPD emphysema and is on oxygen at night. She just had an MRI past week looking for signs of intracranial metastasis and this was evidently negative. Daughter states they were told this was just age-related changes. But the patient seems to be even a little bit more confused than her baseline over the last couple days. But no change in her coughing or breathing. No change in urine. No fever. There is no known injury or fall. But this patient's is here who fell yesterday. She does not recall him falling yesterday so it is possible she fell recently and does not recall it. She is on Plavix. Patient states she has no complaints. [facility] Medical History (Updated 07/04/23 @ 19:[address] Rich Juarez MD) Acute UTI Ambulates with cane Anemia Angina pectoris Anxiety Arthritis Asthma Atherosclerotic heart disease of [place] coronary artery without angina pectoris Chest pain CKD (chronic kidney disease) stage 3, GFR 30-59 ml/min Constipation COPD (chronic obstructive pulmonary disease) Depression Diarrhea Diverticulosis DVT (deep venous thrombosis) Dysplasia of cervix, unspecified Dysthymic disorder Emphysema, unspecified Essential hypertension Fatigue Forgetfulness Glaucoma Gout History of dermatomyositis History of diverticulitis History of echocardiogram History of edema History of heart attack History of left heart catheterization (LHC) (~11/05/21) History of renal disease History of stress test Hx of intestinal obstruction Hx TIA/stroke w/o resid Hypertension Lichen sclerosus Lichen sclerosus Low iron Lung nodule Myalgia Osteoporosis Other pulmonary embolism and infarction Post-menopausal Pulmonary embolism Pure hypercholesterolemia PVD (peripheral vascular disease) Rectocele Restless legs Scleroderma Shortness of breath on exertion SOB (shortness of breath) Walker as ambulation aid Weakness Wears dentures Wears glasses Home Medications albuterol sulfate 90 mcg/actuation aerosol inhaler 1 - 2 puff inhalation Q4H PRN PRN Shortness Of Breath 10/10/15 [History Last Taken 07/04/23] folic acid 1 mg tablet 2 mg PO DAILY SUPPLEMENT 10/10/15 [History Last Taken 07/04/23] simvastatin 20 mg tablet 20 mg PO QHS CHOLESTEROL 10/10/15 [History Last Taken 07/03/23] allopurinol 100 mg tablet 200 mg PO DAILY GOUT 01/12/19 [History Last Taken 07/04/23] latanoprost 0.005 % eye drops 1 drp ophthalmic (eye) QPM GLAUCOMA 01/12/19 [History Last Taken 07/03/23] nitroglycerin 0.4 mg sublingual tablet 0.4 mg sublingual Q5-15M PRN CHEST PAIN 01/12/19 [History Last Taken Unknown] cholecalciferol (vitamin D3) 25 mcg (1,000 unit) tablet 25 mcg PO DAILY SUPPLEMENT 06/26/21 [History Last Taken 07/04/23] clobetasol 0.05 % topical cream 1 applic topical BID PSORIASES 06/26/21 [History Last Taken Unknown] brimonidine 0.1 % eye drops 2 drp ophthalmic (eye) DAILY EYE IRRITATION 07/11/21 [History Last Taken 07/03/23] aspirin 81 mg tablet,delayed release (Nora Low Dose Aspirin) 81 mg PO DAILY HEART HEALTH 10/08/21 [History Last Taken 07/04/23] docusate sodium 100 mg capsule (Colace) 100 mg PO BID PRN CONSTIPATION 10/08/21 [History Last Taken 07/04/23] multivitamin 1 tab PO DAILY HEALTH MAINTENANCE 10/08/21 [History Last Taken 07/04/23] vitamins A,C,X-srge-opgcga 4,296 mcg-226 mg-90 mg capsule (PreserVision AREDS) 1 cap PO BID EYE HEALTH 12/09/21 [History Last Taken 07/04/23] calcipotriene 0.005 % topical cream 1 applic topical DAILY PRN PSORIASES 01/22/23 [History Last Taken Unknown] clopidogrel 75 mg tablet (Plavix) 75 mg PO DAILY BLOOD THINNER 01/22/23 [History Last Taken 07/04/23] isosorbide mononitrate 60 mg tablet,extended release 24 hr 60 mg PO BID BLOOD PRESSURE 01/22/23 [History Last Taken 07/04/23] lisinopril 10 mg tablet 20 mg PO BID BLOOD PRESSURE 01/22/23 [History Last Taken 07/04/23] montelukast 10 mg tablet 10 mg PO DAILY ALLERGIES 01/22/23 [History Last Taken 07/04/23] netarsudil 0.02 % eye drops (Rhopressa) 1 drp EACH EYE DAILY GLAUCOMA 01/22/23 [History Last Taken 07/03/23] melatonin 10 mg sublingual tablet 10 mg PO QHS Sleep 01/27/23 [History Last Taken 07/03/23] sertraline 50 mg tablet 100 mg PO DAILY Mood 01/27/23 [History Last Taken 07/04/23] acetaminophen 500 mg tablet 1,000 mg (2 x 500 mg) PO Q6H PRN PRN Pain Score 1-10 #0 tabs 02/06/23 [Rx Last Taken Unknown] amlodipine 5 mg tablet 5 mg PO DAILY 30 days #30 tabs 02/06/23 [Rx Last Taken 07/04/23] budesonide 160 mcg-glycopyr 9 mcg-formot 4.8 mcg/actuation HFA inhaler (Breztri Aerosphere) 2 inh inhalation DAILY 07/04/23 [History Last Taken 07/04/23] gabapentin 100 mg capsule 200 mg PO QHS 07/04/23 [History Last Taken 07/03/23] hydrocodone 7.5 mg-acetaminophen 325 mg tablet 1 tab PO QHS PRN pain 07/04/23 [History Last Taken 07/03/23] trazodone 50 mg tablet 75 mg PO QHS 07/04/23 [History Last Taken 07/03/23] Allergy/AdvReac Type Severity Reaction Status Date / Time metoprolol tartrate Allergy Unknown Verified 07/04/23 16:27 [From Lopressor] shellfish derived Allergy Anaphylaxis Verified 07/04/23 16:27 Sulfa (Sulfonamide Allergy Rash Verified 07/04/23 16:27 Antibiotics) Family History Father Heart disease Myocardial infarction Surgical History History of cholecystectomy History of coronary artery bypass surgery (~08/10/00) History of intraocular lens implant History of left knee replacement History of total right knee replacement Hx of colonoscopy Hx of heart bypass surgery Social History household members: spouse Smoking Status: Former smoker second hand exposure: Yes alcohol intake: never substance use type: does not use caffeine: Yes what type of physical activity do you participate in: none frequency: does not exercise ROS ROS ED ROS Narrative A complete review of systems was performed and is negative except as documented in the history of present illness. Some specific details below. Constitutional: No recent fevers or chills. No rigors. Patient has not generally felt ill. EYE: No discharge, visual complaints, or pain. ENT: No difficulty swallowing. No sinus pressure or pain. No nasal discharge. No change in hearing. No ear pain. CV: No chest pain, pressure or aching. No palpitations or irregular beats. Patient has not been presyncopal or syncopal. She does not recall any falls nor does the family know of any. Respiratory: No trouble breathing. No new or change in her baseline cough. No wheezing. No sputum production. No pain with breathing. GI: No abdominal pain. No nausea vomiting diarrhea. No blood in stool. She reportedly has been eating : No frequency dysuria or hematuria. Family has not noticed her having incontinence or going to the restroom more. Musculoskeletal: No recent trauma. No pains. No swelling. Skin: No rash. Nondiaphoretic. Neuro: No focal weakness or numbness. No difficulty with speaking. No difficulty understanding speech. No visual loss. Please see history of present illness also. Endocrine: No polyuria or polydipsia. EXAM Physical Exam Narrative Exam Narrative: CONSTITUTIONAL: Patient is nontoxic in appearance. The patient looks comfortable. Work of breathing looks normal. HEENT: No notable trauma. Mucous membranes moist. No sinus tenderness. No pallor or cyanosis. EYES: No conjunctival injection. No proptosis. No pain with range of motion. No pallor. 2 pulls are both about 2 mm and reactive. No photophobia. NECK: No meningismus. No JVD. CARDIOVASCULAR: Regular rate. Regular rhythm. No notable murmur. No JVD. Well-healed median sternotomy. RESPIRATORY: No respiratory distress. Breathing is unlabored. She is not wheezing. No rhonchi. No rales. No pain with a deep breath. Saturations are normal at 96 to 99% while I am in the room on the monitor. GASTROINTESTINAL: Not distended. Bowel sounds are normal. No tenderness. No guarding. No rebound. No palpable mass. No bruit. GENITOURINARY: No tenderness over the bladder. No CVA tenderness. MUSCULOSKELETAL: Atraumatic. No peripheral edema. No cord. No tenderness along the deep venous system. No asymmetry. Well-healed surgical scars over both knees. NEUROLOGICAL: Patient is alert and oriented to person, hospital, she stated the year was 2032. She did not know who the president was. SKIN: No noted rashes. No diaphoresis. No vesicles noted. No notable pallor. PSYCHIATRIC: Patient is calm. Mood is appropriate. Const Vital Signs: 07/04/23 16:27 07/04/23 16:40 07/04/23 18:59 Temperature 97.6 F L Temperature Source Temporal Pulse Rate 89 86 Respiratory Rate 14 18 Respiratory Effort Normal Non-Labored Respiratory Pattern Normal Blood Pressure 156/71 H 170/75 H Blood Pressure Mean 99 106 Pulse Ox 99 97 Oxygen Delivery Method Room Air Room Air MDM MDM MDM Narrative Medical decision making narrative: Patient CBC is overall normal. Patient's electrolytes are overall normal other than minimal elevation in the BUN to creatinine ratio and she was given some IV fluid. Her urine shows no sign of infection. Graph my independent marketing director assisted living of the CT of the head shows age-related changes but no acute process. Final reading is similar. My independent interpretation of her single view chest x-ray shows no acute process and this is consistent with final read. I talked with the patient. I also had a long talk with her daughter. I explained that this may be dementia. They know this is going on. They had talked about getting her into assisted living before but she no longer meets criteria because she is having decreased function. She does have some physical therapy help at home. The daughter is already called to get further help. She is going to talk to the primary doctor. We discussed the option of coming in the hospital. But I explained there is no specific therapy that we would do. There is no specific process we could follow. She is at risk for decompensation faster and to a greater degree with changing her surroundings. Patient will go home. Family is going to be with her also. She does live with her who although is 89 is awake and alert and appropriate. But he has limited physical abilities to help her. The daughter is staying with her. Lab Data Attestation: I reviewed the patient's lab results. Labs: Laboratory Results - last 24 hr 07/04/23 07/04/23 17:25 18:43 WBC 7.1 RBC 3.48 L Hgb 12.1 Hct 37.5 MCV 107.8 H MCH 34.8 H MCHC 32.3 RDW Std Deviation 56.6 H RDW Coeff of Alexandra 14.3 Plt Count 184 MPV 11.4 Immature Gran % (Auto) 0.400 Neut % (Auto) 62.9 Lymph % (Auto) 22.3 [place] % (Auto) 11.7 H Eos % (Auto) 2.1 Baso % (Auto) 0.6 Absolute Neuts (auto) 4.5 Absolute Lymphs (auto) 1.58 Nucleated RBC % 0 Sodium 139 Potassium 4.3 Chloride 107 Carbon Dioxide 30.0 Anion Gap 2 L BUN 24 H Creatinine 1.00 Est GFR (MDRD) Af Amer 69 Est GFR (MDRD) Non-Af 57 L BUN/Creatinine Ratio 24.1 H Glucose 107 H Calcium 10.1 Urine Color Yellow Urine Clarity Clear Urine pH 6.5 Ur Specific [place] 1.010 Urine Protein Negative Urine Glucose (UA) Normal Urine Ketones Negative Urine Occult Blood Negative Urine Nitrite Negative Urine Bilirubin Negative Urine Urobilinogen Normal Ur Leukocyte Esterase 25 H Urine RBC 0 SEEN Urine WBC 0-5 SEEN Ur Squamous Epith Cells 0-5 SEEN Urine Bacteria 0 SEEN Urine Mucus 0 SEEN Radiography Diagnostic Testing: Clinical Impression(s) from Imaging Studies Brain CT 07/04/23 16:44 IMPRESSION: 1. No acute intracranial hemorrhage or mass effect. 2. Central parenchymal volume loss. White matter changes that are nonspecific but most commonly associated with chronic small vessel ischemic disease. Electronically Signed: Roberto Pastrana MD ([place]) at 18:44 EST , Chest X-Ray 07/04/23 17:15 IMPRESSION: Nonacute portable x-ray examination of the chest. Electronically Signed: Roberto Pastrana MD ([place]) at 17:27 EST , Discharge Plan Triage Chief Complaint: Alt LOC ED Provider: Rich Juarez Dx/Rx/DC Orders Clinical Impression: History of dementia, Confusion, Mild dehydration Prescriptions: No Action latanoprost 0.005 % drops 1 drp OPHTHALMIC QPM nitroglycerin 0.4 mg tablet, sublingual 0.4 mg SUBLINGUAL Q5-15M PRN (Reason: CHEST PAIN ) docusate sodium [Colace] 100 mg capsule 100 mg PO BID PRN (Reason: CONSTIPATION ) brimonidine 0.1 % drops 2 drp ophthalmic (eye) DAILY cholecalciferol (vitamin D3) 25 mcg (1,000 unit) tablet 25 mcg PO DAILY clobetasol 0.05 % cream 1 applic topical BID aspirin [Nora Low Dose Aspirin] 81 mg tablet,delayed release (DR/EC) 81 mg PO DAILY multivitamin Tablet 1 tab PO DAILY simvastatin 20 MG tablet 20 mg PO QHS folic acid 1 MG tablet 2 mg PO DAILY albuterol sulfate 1 INHALER inhaler 1 - 2 puff inhalation Q4H PRN PRN (Reason: Shortness Of Breath) allopurinol 100 mg tablet 200 mg PO DAILY calcipotriene 0.005 % Cream 1 applic TOPICAL DAILY PRN (Reason: PSORIASES) Rx Instructions: rub in gently and completely lisinopril 10 mg Tablet 20 mg PO BID montelukast 10 mg tablet 10 mg PO DAILY Rhopressa 0.02 % Drops 1 drp EACH EYE DAILY clopidogrel [Plavix] 75 mg tablet 75 mg PO DAILY isosorbide mononitrate 60 mg tablet extended release 24 hr 60 mg PO BID sertraline 50 mg tablet 100 mg PO DAILY melatonin 10 mg tablet, sublingual 10 mg PO QHS acetaminophen 500 mg Tablet 1,000 mg PO Q6H PRN PRN (Reason: Pain Score 1-10) Qty: 0 0RF amlodipine 5 mg Tablet 5 mg PO DAILY 30 Days Qty: 30 0RF trazodone 50 mg tablet 75 mg PO QHS hydrocodone-acetaminophen 7.5-325 mg tablet 1 tab PO QHS PRN (Reason: pain) Breztri Aerosphere 160-9-4.8 mcg/actuation HFA aerosol inhaler 2 inh INHALATION DAILY gabapentin 100 mg Capsule 200 mg PO QHS PreserVision AREDS 14,320-226-200 [id number] capsule 1 cap PO BID Primary Care Provider: Steffany Rose Referrals: Steffany Rose MD [Primary Care Provider] - 2 Days (Contact for some extra at-home help and follow-up) Disposition Disposition: Home, Self Care
[2023-07-04] MEDS: 0.9% Normal Saline (500mL Bag) 500 ML 1000 ML IV (17:00)
--- NOTE | 2023-07-04 17:15 | RAD_ITS ---
STUDY: X-RAY CHEST REASON FOR EXAM: Female, 83 years old. cough TECHNIQUE: AP COMPARISON: 02/03/2023 FINDINGS: The lungs are clear and expanded. There is no demonstrated pleural abnormality. Normal size heart. Sternal wires and mediastinal surgical clips compatible with prior CABG. Normal visualized pulmonary arteries. There is atherosclerotic calcification of the aortic arch with tortuosity. There are diffuse degenerative changes of the visualized thoracic spine. Normal visualized ribs, clavicles, and shoulders. There is no demonstrated abnormality of the visualized soft tissue structures of the upper abdomen. RAD/Chest 1 View (Portable) IMPRESSION: Nonacute portable x-ray examination of the chest. Electronically Signed: Roberto Pastrana MD ([place]) at 17:27 EST ,
[2023-07-04 17:49] LABS: Absolute Lymphocyte Count 1.58 X10^3/uL (0.83-4.51); Absolute Neutrophil Count 4.5 X10^3/uL (2.0-7.7); Basophil# 0.04 X10^3/uL; Basophil% 0.6 % (0-1); Eosinophil# 0.15 X10^3/uL; Eosinophils% 2.1 % (0-5); Hematocrit 37.5 % (37-47); Hemoglobin 12.1 g/dL (12.0-15.0); Lymphocyte # 1.58 X10^3/ul (0.83-4.51); Lymphocyte % 22.3 % (19-41); Mean Corp Hgb Conc 32.3 g/dL (32-36); Mean Corpuscular Hgb 34.8 pg (27.0-32.0); Mean Corpuscular Volume 107.8 fL (81-99); Mean Platelet Vol. 11.4 fl (6.2-12.0); Monocyte# 0.83 X10^3/uL; Monocyte% 11.7 % (0-10); NRBC Flagged by Analyzer 0 % (0-5); Neutrophil # 4.45 X10^3/uL (2.7-7.7); Neutrophil % 62.9 % (47-70); Platelet Count 184 K/mm3 (150-450); RBC Distribution Width CV 14.3 % (11.6-14.6); RBC Distribution Width SD 56.6 fl (35.1-43.9); Red Blood Count 3.48 M/mm3 (4.2-5.4); White Blood Count 7.1 K/mm3 (4.4-11.0)
[2023-07-04 18:07] LABS: Anion Gap 2 (5-15); BUN 24 mg/dL (7-18); BUN/Creat Ratio 24.1 RATIO (10-20); Calcium,Total 10.1 mg/dL (8.5-10.1); Chloride 107 mmol/L (98-107); EST Glomerular Filtration Rate 57 mL/min (>60); Est Glom Filt Rate - Afr Amer 69 mL/min (>60); Glucose 107 mg/dL (74-106); Potassium 4.3 mmol/L (3.5-5.1); Sodium Level 139 mmol/L (136-145)
[2023-07-04 18:47] LABS: Bacteria 0 SEEN /hpf (None Seen); Mucous, Urine 0 SEEN /hpf (<or=2+); Red Blood Cells-Urine 0 SEEN /hpf (0-5)
[2023-07-04 18:51] LABS: Color, Urine Yellow (Yellow); Glucose, Dipstick Normal (Normal); Ketone-Dipstick Negative (Negative); Leukocyte Esterase-Dipstick 25 /ul (Negative); Nitrite-Dipstick Negative (Negative); Occult Blood-Urine Negative /ul (Negative); Protein-Dipstick Negative (Negative); Urine Bilirubin Dipstick Negative (Negative); Urine Clarity Clear (Clear); Urine Urobilinogen Normal (Normal); Urine pH 6.5 (5.0 - 8.0)
[2023-07-04 18:59] VITALS: BP 170/75; PULSE 86; RESP 18; O2SAT 97
[2023-07-04 19:02] LABS: Squamous Epithelial Cells - UA 0-5 SEEN /hpf (5-10); White Blood Cells 0-5 SEEN /hpf (0-5)
[2023-07-04 19:37] VITALS: BP 169/80; PULSE 85; RESP 15; O2SAT 95; BMI 30.9
== END 2023-07-04 20:25 | disposition home or self-care (01) ==
PROVIDERS: Emergency Provider Emergency Medicine; PCP Internal Medicine; Visit Provider Emergency Medicine
DX: F03.90 Unspecified dementia, unspecified severity, without behavioral disturbance, psychotic disturbance, mood disturbance, and anxiety (principal); J43.9 Emphysema, unspecified; N18.30 Chronic kidney disease, stage 3 unspecified; I25.10 Atherosclerotic heart disease of native coronary artery without angina pectoris; I12.9 Hypertensive chronic kidney disease with stage 1 through stage 4 chronic kidney disease, or unspecified chronic kidney disease; E78.00 Pure hypercholesterolemia, unspecified; Z87.891 Personal history of nicotine dependence; Z79.02 Long term (current) use of antithrombotics/antiplatelets; Z79.899 Other long term (current) drug therapy; Z79.82 Long term (current) use of aspirin; E86.0 Dehydration
CPT/HCPCS: 70450; 71045; 80048; 81001; 85025; 93005; 96360; 96361; 99285; P9612; A4216

== ENCOUNTER 2023-10-13 02:01 | Inpatient (IN) | payer MEDICARE, SELFPAY ==
[2023-10-13] VITALS (29 sets, daily range): BP systolic 117–155; BP diastolic 49–97; PULSE 60–141; RESP 15–34; TEMP 36.4–37.3; O2SAT 87–99; BMI 31.0
--- NOTE | 2023-10-13 02:08 | RAD_ITS ---
INDICATION: hypoxia EXAMINATION/TECHNIQUE: X-RAY - XR Chest 1 View COMPARISON: 07/04/2023. FINDINGS: LINES/DEVICES: None. LUNGS: No consolidation or evidence of an effusion. No evidence of edema or a pneumothorax. MEDIASTINUM AND CARDIOVASCULAR STRUCTURES: Cardiac silhouette is normal in size and contour. Stable postsurgical changes. BONES AND SOFT TISSUES: No acute abnormality. RAD/Chest 1 View (Portable) IMPRESSION: No evidence of acute cardiopulmonary disease. Electronically Signed: Tio Richardson DO at 2:36 EST ,
[2023-10-13 02:20] LABS: Absolute Lymphocyte Count 1.69 X10^3/uL (0.83-4.51); Absolute Neutrophil Count 5.5 X10^3/uL (2.0-7.7); Basophil# 0.04 X10^3/uL; Basophil% 0.5 % (0-1); Hematocrit 34.4 % (37-47); Lymphocyte # 1.69 X10^3/ul (0.83-4.51); Lymphocyte % 19.1 % (19-41); Mean Corpuscular Hgb 33.6 pg (27.0-32.0); Mean Corpuscular Volume 105.2 fL (81-99); Mean Platelet Vol. 11.4 fl (6.2-12.0); Monocyte# 1.59 X10^3/uL; NRBC Flagged by Analyzer 0 % (0-5); Neutrophil % 62.1 % (47-70); POSITIVE DIFFERENTIAL YES; Platelet Count 179 K/mm3 (150-450); RBC Distribution Width SD 61.3 fl (35.1-43.9); Red Blood Count 3.27 M/mm3 (4.2-5.4); White Blood Count 8.9 K/mm3 (4.4-11.0)
[2023-10-13 02:21] LABS: Differential Indicated SCAN CRITERIA MET
--- NOTE | 2023-10-13 02:32 | EKG12_ITS ---
Test Reason : DYSRHYTHMIA Blood Pressure : / mmHG Vent. Rate : 068 BPM Atrial Rate : 068 BPM P-R Int : 178 ms QRS Dur : 100 ms QT Int : 436 ms P-R-T Axes : 083 025 013 degrees QTc Int : 463 ms Sinus rhythm with Premature supraventricular complexes and with occasional Premature ventricular comp lexes Nonspecific ST and T wave abnormality Abnormal ECG Confirmed by TARIQ PAYNE, LIZA ([id number]), food expeditor ALEXANDER MCDOWELL ([id number]) on 10/13/2023 9:46:15 AM Referred By: Confirmed By:LIZA POTTER MD
[2023-10-13 02:35] LABS: Anion Gap 6 (5-15); BUN 44 mg/dL (7-18); BUN/Creat Ratio 28.8 RATIO (10-20); Calcium,Total 9.4 mg/dL (8.5-10.1); Chloride 104 mmol/L (98-107); Creatinine, Serum 1.53 mg/dL (0.55-1.02); EST Glomerular Filtration Rate 35 mL/min (>60); Est Glom Filt Rate - Afr Amer 42 mL/min (>60); Glucose 104 mg/dL (74-106); Potassium 3.9 mmol/L (3.5-5.1); Sodium Level 137 mmol/L (136-145)
[2023-10-13] MEDS: Ipratropium/Albuterol Sulfate 3 ML AMPUL.NEB INHALATION (02:36)
[2023-10-13 02:37] LABS: Differential Comment SCANNED
[2023-10-13 02:40] LABS: BNP,B-Type NATRIURETIC PEPTIDE 191.7 pg/mL (0-100)
[2023-10-13] MEDS: dexAMETHasone 10 MG/ML Vial IV (02:42)
--- NOTE | 2023-10-13 03:57 | PCM.HP.STD ---
HPI - General General Date of Admission: 10/13/23 Date of Service: 10/13/23 Chief Complaint: Shortness of breath HPI Narrative TALIA BURT, is a 83 F who presents to the emergency room with chief complaint of shortness of breath. Onset of symptoms began within the last 24 hours as patient complained of difficulty breathing at her assisted living facility. Patient has significant past medical history of dementia, congestive heart failure, lung nodule and DVT who presents to our facility coronavirus positive who was maintaining an oxygen saturation of 70s without oxygen at the [facility]. She was sent in and did respond to steroids and oxygen support in the emergency room. Patient will be admitted to general medical floor for management of COVID and hypoxia. Patient denies any chest pain, fever or chills at present time. Chest x-ray is unremarkable as are laboratory studies at present. [facility] Medical History (Updated 10/13/23 @ 04:[address] José Rivera MD) Acute UTI Ambulates with cane Anemia Angina pectoris Anxiety Arthritis Asthma Atherosclerotic heart disease of [place] coronary artery without angina pectoris Chest pain CKD (chronic kidney disease) stage 3, GFR 30-59 ml/min Constipation COPD (chronic obstructive pulmonary disease) Depression Diarrhea Diverticulosis DVT (deep venous thrombosis) Dysplasia of cervix, unspecified Dysthymic disorder Emphysema, unspecified Essential hypertension Fatigue Forgetfulness Glaucoma Gout History of dermatomyositis History of diverticulitis History of echocardiogram History of edema History of heart attack History of left heart catheterization (LHC) (~11/05/21) History of renal disease History of stress test Hx of intestinal obstruction Hx TIA/stroke w/o resid Hypertension Lichen sclerosus Lichen sclerosus Low iron Lung nodule Myalgia Osteoporosis Other pulmonary embolism and infarction Post-menopausal Pulmonary embolism Pure hypercholesterolemia PVD (peripheral vascular disease) Rectocele Restless legs Scleroderma Shortness of breath on exertion SOB (shortness of breath) Walker as ambulation aid Weakness Wears dentures Wears glasses Home Medications albuterol sulfate 90 mcg/actuation aerosol inhaler 1 - 2 puff inhalation Q4H PRN PRN Shortness Of Breath 10/10/15 [History Last Taken 07/04/23] folic acid 1 mg tablet 2 mg PO DAILY SUPPLEMENT 10/10/15 [History Last Taken 07/04/23] simvastatin 20 mg tablet 20 mg PO QHS CHOLESTEROL 10/10/15 [History Last Taken 07/03/23] allopurinol 100 mg tablet 200 mg PO BID GOUT 01/12/19 [History Last Taken 07/04/23] latanoprost 0.005 % eye drops 1 drp ophthalmic (eye) QPM GLAUCOMA 01/12/19 [History Last Taken 07/03/23] nitroglycerin 0.4 mg sublingual tablet 0.4 mg sublingual Q5-15M PRN CHEST PAIN 01/12/19 [History Last Taken Unknown] cholecalciferol (vitamin D3) 25 mcg (1,000 unit) tablet 25 mcg PO DAILY SUPPLEMENT 06/26/21 [History Last Taken 07/04/23] clobetasol 0.05 % topical cream 1 applic topical BID PSORIASES 06/26/21 [History Last Taken Unknown] brimonidine 0.1 % eye drops 2 drp ophthalmic (eye) DAILY EYE IRRITATION 07/11/21 [History Last Taken 07/03/23] docusate sodium 100 mg capsule (Colace) 100 mg PO BID PRN CONSTIPATION 10/08/21 [History Last Taken 07/04/23] vitamins A,C,O-vybe-oiccyb 4,296 mcg-226 mg-90 mg capsule (PreserVision AREDS) 1 cap PO BID EYE HEALTH 12/09/21 [History Last Taken 07/04/23] calcipotriene 0.005 % topical cream 1 applic topical DAILY PRN PSORIASES 01/22/23 [History Last Taken Unknown] isosorbide mononitrate 60 mg tablet,extended release 24 hr 60 mg PO BID BLOOD PRESSURE 01/22/23 [History Last Taken 07/04/23] lisinopril 10 mg tablet 20 mg PO BID BLOOD PRESSURE 01/22/23 [History Last Taken 07/04/23] montelukast 10 mg tablet 10 mg PO DAILY ALLERGIES 01/22/23 [History Last Taken 07/04/23] netarsudil 0.02 % eye drops (Rhopressa) 1 drp EACH EYE DAILY GLAUCOMA 01/22/23 [History Last Taken 07/03/23] sertraline 50 mg tablet 100 mg PO DAILY Mood 01/27/23 [History Last Taken 07/04/23] acetaminophen 500 mg tablet 1,000 mg (2 x 500 mg) PO Q6H PRN PRN Pain Score 1-10 #0 tabs 02/06/23 [Rx Last Taken Unknown] amlodipine 5 mg tablet 5 mg PO DAILY 30 days #30 tabs 02/06/23 [Rx Last Taken 07/04/23] budesonide 160 mcg-glycopyr 9 mcg-formot 4.8 mcg/actuation HFA inhaler (Breztri Aerosphere) 2 inh inhalation DAILY 07/04/23 [History Last Taken 07/04/23] gabapentin 100 mg capsule 200 mg PO QHS 07/04/23 [History Last Taken 07/03/23] hydrocodone 7.5 mg-acetaminophen 325 mg tablet 1 tab PO QHS PRN pain 07/04/23 [History Last Taken 07/03/23] trazodone 50 mg tablet 75 mg PO QHS 07/04/23 [History Last Taken 07/03/23] clopidogrel 75 mg tablet See Rx Instructions .Route .COMPLEX #28 TABLETS 10/05/23 [Rx Last Taken Unknown] benzonatate 100 mg capsule 100 mg PO TID PRN cough 10/13/23 [History Last Taken Unknown] donepezil 5 mg tablet 5 mg PO QHS 10/13/23 [History Last Taken Unknown] furosemide 40 mg tablet 40 mg PO DAILY 10/13/23 [History Last Taken Unknown] guaifenesin 200 mg tablet (Expectorant) 600 mg PO BID PRN PRN cough 10/13/23 [History Last Taken Unknown] nirmatrelvir 300 mg (150 mg x2)-ritonavir 100 mg tablet,dose pack (Paxlovid) 1 tab PO BID 10/13/23 [History Last Taken Unknown] Allergy/AdvReac Type Severity Reaction Status Date / Time metoprolol tartrate Allergy Unknown Verified 07/04/23 16:27 [From Lopressor] shellfish derived Allergy Anaphylaxis Verified 07/04/23 16:27 Sulfa (Sulfonamide Allergy Rash Verified 07/04/23 16:27 Antibiotics) Family History Father Heart disease Myocardial infarction Surgical History History of cholecystectomy History of coronary artery bypass surgery (~08/10/00) History of intraocular lens implant History of left knee replacement History of total right knee replacement Hx of colonoscopy Hx of heart bypass surgery Social History household members: spouse Smoking Status: Former smoker second hand exposure: Yes alcohol intake: never substance use type: does not use caffeine: Yes what type of physical activity do you participate in: none frequency: does not exercise ROS Constitutional Constitutional: Denies chills or fever(s) Eyes Eyes: Denies change in vision ENT HEENT: Denies abnormal hearing or headache(s) Cardiovascular Cardiovascular: Denies chest pain Respiratory/Chest Respiratory/Chest: Reports shortness of breath at rest Gastrointestinal Gastrointestinal: Denies abdominal pain Genitourinary Genitourinary: Denies dysuria Musculoskeletal Musculoskeletal: Denies back pain Integumentary Integumentary: Denies dry skin Neurologic Neurologic: Denies abnormal speech Psychiatric Psychiatric: Denies anxiety Endocrine Endocrinology: Denies change in body appearance Vital Signs Vital Signs Vital Signs: 10/13/23 02:03 10/13/23 02:06 10/13/23 02:06 Temperature 97.6 F L 97.6 F L Temperature Source Temporal Temporal Pulse Rate 69 75 Respiratory Rate 24 H 33 H Respiratory Effort Short of Breath Respiratory Depth Shallow Respiratory Pattern Tachypnea Blood Pressure 155/72 H 155/72 H Blood Pressure Mean 99 99 Pulse Ox 87 87 Oxygen Delivery Method Room Air Room Air Room Air 10/13/23 02:36 Temperature Temperature Source Pulse Rate 87 Respiratory Rate 30 H Respiratory Effort Respiratory Depth Respiratory Pattern Tachypnea Blood Pressure Blood Pressure Mean Pulse Ox Oxygen Delivery Method Weight Weight: 193 lb 1.999 oz Body Mass Index (BMI) 31.0 Physical Exam Const alert General Appearance: cooperative and well developed HEENT normocephalic and head/scalp atraumatic Eyes PERRL Neck no lymphadenopathy Lymph Lymphatic: no lymphadenopathy noted Resp normal respiratory effort and normal air movement Auscultation: Negative for rales, rhonchi or wheezes Cardio regular rate, regular rhythm, S1 normal heart sound and S2 normal heart sound GI soft to palpation, non-tender and non-distended Extremity normal capillary refill General Extremity: Negative for cyanosis Skin General Skin Exam: no breakdown Neuro no focal motor deficits and no sensory deficits noted Speech: speech normal Psych cooperative and affect normal Results Lab / Micro Data 10/13/23 02:10 10/13/23 02:10 Labs: Laboratory Results - last 24 hr 10/13/23 02:10: WBC 8.9, RBC 3.27 L, Hgb 11.0 L, Hct 34.4 L, MCV 105.2 H, MCH 33.6 H, MCHC 32.0, RDW Std Deviation 61.3 H, RDW Coeff of Alexandra 16.0 H, Plt Count 179, MPV 11.4, Immature Gran % (Auto) 0.300, Neut % (Auto) 62.1, Lymph % (Auto) 19.1, Weld % (Auto) 18.0 H, Eos % (Auto) 0.0, Baso % (Auto) 0.5, Absolute Neuts (auto) 5.5, Absolute Lymphs (auto) 1.69, Nucleated RBC % 0, Differential Comment SCANNED, Sodium 137, Potassium 3.9, Chloride 104, Carbon Dioxide 27.0, Anion Gap 6, BUN 44 H, Creatinine 1.53 H, Estim Creat Clear Calc 31.60, Est GFR (MDRD) Af Amer 42 L, Est GFR (MDRD) Non-Af 35 L, BUN/Creatinine Ratio 28.8 H, Glucose 104, Calcium 9.4, B-Natriuretic Peptide 191.7 H Micro: Microbiology 10/13/23 02:15 Mucosa - Nose SARS-CoV-2, Influenza & RSV (PCR) - Preliminary SARS-CoV-2 (COVID 19 PCR) Imaging Radiology Impression Chest X-Ray 10/13/23 02:08 IMPRESSION: No evidence of acute cardiopulmonary disease. Electronically Signed: Tio Richardson DO at 2:36 EST Reading Location ID and State: [facility] / [place] Tel , Service support , Assessment & Plan Assessment/Plan (1) HFrEF (heart failure with reduced ejection fraction): (2) Insomnia: (3) Depression: (4) Coronary artery disease: (5) Hyperlipidemia: (6) History of coronary artery bypass surgery: (7) COVID: PLAN: Plan 1 shortness of breath secondary to COVID with hypoxia?admit patient to general medical floor maintain COVID isolation procedures, oxygen per routine protocol to maintain saturation above 90%, dexamethasone 6 mg p.o. daily. When determined to be stable patient may be return to assisted living facility with supportive oxygen. 2. Hyperlipidemia?continue statin 3. History of coronary artery disease?routine medications stable at this time 4. Depression history?continue routine home medications as patient seems stable 5. DVT prophylaxis?low molecular weight heparin 6. CODE STATUS?discussing with patient's daughter she wishes to be DNR [employer] arrest Charges/Coding Visit Charges Inpatient E&M: 45246 Init Hosp L2
--- NOTE | 2023-10-13 03:58 | EX.ED.DYSGE1 ---
HPI History of Present Illness Chief Complaint: Shortness of Breath Informant: patient and family Narrative Narrative: Patient is an 83-year-old female from the long-term with past medical history of hypertension hyperlipidemia lung cancer previous DVT/PE only on aspirin and Plavix CHF and COPD but without need for supplemental oxygen. Daughter states that the patient began having symptoms of congestion and cough and tested positive for COVID on Thursday evening. Today she had increased cough and work of breathing and her pulse ox dropped to 70% on room air. Secondary to her worsening symptoms and hypoxia she was sent to the hospital for evaluation [facility] Medical History Acute UTI Ambulates with cane Anemia Angina pectoris Anxiety Arthritis Asthma Atherosclerotic heart disease of [place] coronary artery without angina pectoris Chest pain CKD (chronic kidney disease) stage 3, GFR 30-59 ml/min Constipation COPD (chronic obstructive pulmonary disease) Depression Diarrhea Diverticulosis DVT (deep venous thrombosis) Dysplasia of cervix, unspecified Dysthymic disorder Emphysema, unspecified Essential hypertension Fatigue Forgetfulness Glaucoma Gout History of dermatomyositis History of diverticulitis History of echocardiogram History of edema History of heart attack History of left heart catheterization (LHC) (~11/05/21) History of renal disease History of stress test Hx of intestinal obstruction Hx TIA/stroke w/o resid Hypertension Lichen sclerosus Lichen sclerosus Low iron Lung nodule Myalgia Osteoporosis Other pulmonary embolism and infarction Post-menopausal Pulmonary embolism Pure hypercholesterolemia PVD (peripheral vascular disease) Rectocele Restless legs Scleroderma Shortness of breath on exertion SOB (shortness of breath) Walker as ambulation aid Weakness Wears dentures Wears glasses Home Medications albuterol sulfate 90 mcg/actuation aerosol inhaler 1 - 2 puff inhalation Q4H PRN PRN Shortness Of Breath 10/10/15 [History Last Taken 07/04/23] folic acid 1 mg tablet 2 mg PO DAILY SUPPLEMENT 10/10/15 [History Last Taken 07/04/23] simvastatin 20 mg tablet 20 mg PO QHS CHOLESTEROL 10/10/15 [History Last Taken 07/03/23] allopurinol 100 mg tablet 200 mg PO BID GOUT 01/12/19 [History Last Taken 07/04/23] latanoprost 0.005 % eye drops 1 drp ophthalmic (eye) QPM GLAUCOMA 01/12/19 [History Last Taken 07/03/23] nitroglycerin 0.4 mg sublingual tablet 0.4 mg sublingual Q5-15M PRN CHEST PAIN 01/12/19 [History Last Taken Unknown] cholecalciferol (vitamin D3) 25 mcg (1,000 unit) tablet 25 mcg PO DAILY SUPPLEMENT 06/26/21 [History Last Taken 07/04/23] clobetasol 0.05 % topical cream 1 applic topical BID PSORIASES 06/26/21 [History Last Taken Unknown] brimonidine 0.1 % eye drops 2 drp ophthalmic (eye) DAILY EYE IRRITATION 07/11/21 [History Last Taken 07/03/23] docusate sodium 100 mg capsule (Colace) 100 mg PO BID PRN CONSTIPATION 10/08/21 [History Last Taken 07/04/23] vitamins A,C,G-yhxj-mpsdzg 4,296 mcg-226 mg-90 mg capsule (PreserVision AREDS) 1 cap PO BID EYE HEALTH 12/09/21 [History Last Taken 07/04/23] calcipotriene 0.005 % topical cream 1 applic topical DAILY PRN PSORIASES 01/22/23 [History Last Taken Unknown] isosorbide mononitrate 60 mg tablet,extended release 24 hr 60 mg PO BID BLOOD PRESSURE 01/22/23 [History Last Taken 07/04/23] lisinopril 10 mg tablet 20 mg PO BID BLOOD PRESSURE 01/22/23 [History Last Taken 07/04/23] montelukast 10 mg tablet 10 mg PO DAILY ALLERGIES 01/22/23 [History Last Taken 07/04/23] netarsudil 0.02 % eye drops (Rhopressa) 1 drp EACH EYE DAILY GLAUCOMA 01/22/23 [History Last Taken 07/03/23] sertraline 50 mg tablet 100 mg PO DAILY Mood 01/27/23 [History Last Taken 07/04/23] acetaminophen 500 mg tablet 1,000 mg (2 x 500 mg) PO Q6H PRN PRN Pain Score 1-10 #0 tabs 02/06/23 [Rx Last Taken Unknown] amlodipine 5 mg tablet 5 mg PO DAILY 30 days #30 tabs 02/06/23 [Rx Last Taken 07/04/23] budesonide 160 mcg-glycopyr 9 mcg-formot 4.8 mcg/actuation HFA inhaler (Breztri Aerosphere) 2 inh inhalation DAILY 07/04/23 [History Last Taken 07/04/23] gabapentin 100 mg capsule 200 mg PO QHS 07/04/23 [History Last Taken 07/03/23] hydrocodone 7.5 mg-acetaminophen 325 mg tablet 1 tab PO QHS PRN pain 07/04/23 [History Last Taken 07/03/23] trazodone 50 mg tablet 75 mg PO QHS 07/04/23 [History Last Taken 07/03/23] clopidogrel 75 mg tablet See Rx Instructions .Route .COMPLEX #28 TABLETS 10/05/23 [Rx Last Taken Unknown] benzonatate 100 mg capsule 100 mg PO TID PRN cough 10/13/23 [History Last Taken Unknown] donepezil 5 mg tablet 5 mg PO QHS 10/13/23 [History Last Taken Unknown] furosemide 40 mg tablet 40 mg PO DAILY 10/13/23 [History Last Taken Unknown] guaifenesin 200 mg tablet (Expectorant) 600 mg PO BID PRN PRN cough 10/13/23 [History Last Taken Unknown] nirmatrelvir 300 mg (150 mg x2)-ritonavir 100 mg tablet,dose pack (Paxlovid) 1 tab PO BID 10/13/23 [History Last Taken Unknown] Allergy/AdvReac Type Severity Reaction Status Date / Time metoprolol tartrate Allergy Unknown Verified 07/04/23 16:27 [From Lopressor] shellfish derived Allergy Anaphylaxis Verified 07/04/23 16:27 Sulfa (Sulfonamide Allergy Rash Verified 07/04/23 16:27 Antibiotics) Family History Father Heart disease Myocardial infarction Surgical History History of cholecystectomy History of coronary artery bypass surgery (~08/10/00) History of intraocular lens implant History of left knee replacement History of total right knee replacement Hx of colonoscopy Hx of heart bypass surgery Social History household members: spouse Smoking Status: Former smoker second hand exposure: Yes alcohol intake: never substance use type: does not use caffeine: Yes what type of physical activity do you participate in: none frequency: does not exercise ROS ROS ED Constitutional Constitutional ED: Denies chills or fever(s) ENT ENT ED: Reports rhinorrhea and sore throat Cardiovascular Cardiovascular: Denies chest pain Respiratory/Chest Respiratory/Chest: Reports cough and dyspnea Gastrointestinal Gastrointestinal: Denies abdominal pain, diarrhea, nausea or vomiting Genitourinary Genitourinary ED: Denies dysuria Musculoskeletal Musculoskeletal: Reports myalgias Integumentary Denies rash Neurologic Neurologic: Denies headache(s) Hematologic/Lymphatic Hematologic/Lymphatic: Reports easy bleeding and easy bruising EXAM Physical Exam Const Vital Signs: 10/13/23 02:03 10/13/23 02:06 10/13/23 02:06 Temperature 97.6 F L 97.6 F L Temperature Source Temporal Temporal Pulse Rate 69 75 Respiratory Rate 24 H 33 H Respiratory Effort Short of Breath Respiratory Depth Shallow Respiratory Pattern Tachypnea Blood Pressure 155/72 H 155/72 H Blood Pressure Mean 99 99 Pulse Ox 87 87 Oxygen Delivery Method Room Air Room Air Room Air 10/13/23 02:36 Temperature Temperature Source Pulse Rate 87 Respiratory Rate 30 H Respiratory Effort Respiratory Depth Respiratory Pattern Tachypnea Blood Pressure Blood Pressure Mean Pulse Ox Oxygen Delivery Method Positive well nourished, well developed and obese General Appearance ED: well developed; Negative for pallor Nutritional Appearance: obese HEENT HEENT Narrative: No tongue or lip swelling noted. No airway edema or compromise There is cobblestoning the posterior pharynx consistent with sinus drainage No secondary changes to suggest infection Eyes PERRL and EOMs intact bilaterally Eyes Narrative: Patient has diffuse scleral injection consistent with past medical history of macular degeneration General Eye ED: Negative for scleral icterus Neck supple and no JVD Resp Resp Narrative: Patient is tachypneic breathing roughly 30 times a minute with mild accessory muscle use Breath sounds are diminished throughout with diffuse expiratory wheeze and rhonchi in the bilateral bases Cardio regular rate and regular rhythm Rate: other Other Details: Heart is regular rate and rhythm with occasional ectopic beat noted Radial and carotid pulses equal and symmetric GI normal to inspection, nondistended, normoactive bowel sounds, non-tender, non-distended and no masses GI Narrative: No voluntary guarding or rigidity or pulsatile mass No fluid wave noted Auscultation: normoactive bowel sounds Palpation: soft Extremity Extremity Narrative: Trace to +1 pitting edema to the bilateral lower extremities that is equal and symmetric Negative Homans' sign bilaterally Neuro CN's II-XII intact bilaterally Neuro Narrative: Patient is awake and alert and at her baseline mental status Cranial nerves II through XII are grossly intact No focal neurologic deficit Sensorium / Orientation: alert Psych mental status grossly normal Skin no rashes or lesions noted General Skin Exam: Negative for jaundice or pallor MDM MDM MDM Narrative Medical decision making narrative: Patient has past medical history of chronic kidney disease congestive heart failure and COPD but does not normally need supplemental oxygen. She recently tested positive for COVID at the long-term and her pulse ox on room air was down at 70% indicating acute respiratory failure. She was placed on nasal cannula oxygen and her pulse ox improved to the mid to low 90s. In order to ensure that COVID was the cause of her symptoms basic blood work was obtained to rule out acute blood loss anemia acute on chronic kidney injury severe electrolyte abnormality and pneumonia versus pneumothorax versus pleural effusion. Chest x-ray revealed no acute findings and labs showed mild elevation to her kidney function consistent with chronic kidney disease but otherwise no clinically significant findings. At this time as the patient is requiring supplemental oxygen they have her sats greater than 90% the case was discussed with the hospitalist who agrees admit the patient for further care. As patient is COVID-positive and does not have pneumonia findings on chest x-ray do not feel there is need for antibiotics History & Record Review Discussion w/independent historian: Patient and Family Lab Data Attestation: I reviewed the patient's lab results. Labs: Laboratory Results - last 24 hr 10/13/23 02:10 WBC 8.9 RBC 3.27 L Hgb 11.0 L Hct 34.4 L MCV 105.2 H MCH 33.6 H MCHC 32.0 RDW Std Deviation 61.3 H RDW Coeff of Alexandra 16.0 H Plt Count 179 MPV 11.4 Immature Gran % (Auto) 0.300 Neut % (Auto) 62.1 Lymph % (Auto) 19.1 [place] % (Auto) 18.0 H Eos % (Auto) 0.0 Baso % (Auto) 0.5 Absolute Neuts (auto) 5.5 Absolute Lymphs (auto) 1.69 Nucleated RBC % 0 Differential Comment SCANNED Sodium 137 Potassium 3.9 Chloride 104 Carbon Dioxide 27.0 Anion Gap 6 BUN 44 H Creatinine 1.53 H Estim Creat Clear Calc 31.60 Est GFR (MDRD) Af Amer 42 L Est GFR (MDRD) Non-Af 35 L BUN/Creatinine Ratio 28.8 H Glucose 104 Calcium 9.4 B-Natriuretic Peptide 191.7 H Radiography Diagnostic Testing: Clinical Impression(s) from Imaging Studies Chest X-Ray 10/13/23 02:08 IMPRESSION: No evidence of acute cardiopulmonary disease. Electronically Signed: Tio Richardson DO at 2:36 EST Reading Location ID and State: [facility] / [place] Tel , Service support , Chest x-ray as interpreted by the emergency medicine physician reveals no acute infiltrate pneumothorax or pleural effusion Management Discussion w/another healthcare provider: Hospitalist Critical Care Time Critical Care Time: Yes Critical care time (excluding procedures): Discussing w/Patient &/or Family/[place] Manager, Discussing w/Consultants and - (Critical care time of 33 minutes) Discharge Plan Triage Chief Complaint: Shortness of Breath ED Provider: Jose Rafael Low Dx/Rx/DC Orders Clinical Impression: Acute respiratory failure with hypoxia, COPD (chronic obstructive pulmonary disease), CKD (chronic kidney disease) stage 3, GFR 30-59 ml/min, Essential hypertension, COVID-19, Congestive heart failure (CHF) Prescriptions: No Action latanoprost 0.005 % drops 1 drp OPHTHALMIC QPM nitroglycerin 0.4 mg tablet, sublingual 0.4 mg SUBLINGUAL Q5-15M PRN (Reason: CHEST PAIN ) docusate sodium [Colace] 100 mg capsule 100 mg PO BID PRN (Reason: CONSTIPATION ) brimonidine 0.1 % drops 2 drp ophthalmic (eye) DAILY cholecalciferol (vitamin D3) 25 mcg (1,000 unit) tablet 25 mcg PO DAILY clobetasol 0.05 % cream 1 applic topical BID simvastatin 20 MG tablet 20 mg PO QHS folic acid 1 MG tablet 2 mg PO DAILY albuterol sulfate 1 INHALER inhaler 1 - 2 puff inhalation Q4H PRN PRN (Reason: Shortness Of Breath) allopurinol 100 mg tablet 200 mg PO BID Rx Instructions: 200mg BID 100mg daily every other day calcipotriene 0.005 % Cream 1 applic TOPICAL DAILY PRN (Reason: PSORIASES) Rx Instructions: rub in gently and completely lisinopril 10 mg Tablet 20 mg PO BID montelukast 10 mg tablet 10 mg PO DAILY Rhopressa 0.02 % Drops 1 drp EACH EYE DAILY isosorbide mononitrate 60 mg tablet extended release 24 hr 60 mg PO BID sertraline 50 mg tablet 100 mg PO DAILY acetaminophen 500 mg Tablet 1,000 mg PO Q6H PRN PRN (Reason: Pain Score 1-10) Qty: 0 0RF amlodipine 5 mg Tablet 5 mg PO DAILY 30 Days Qty: 30 0RF trazodone 50 mg tablet 75 mg PO QHS hydrocodone-acetaminophen 7.5-325 mg tablet 1 tab PO QHS PRN (Reason: pain) Breztri Aerosphere 160-9-4.8 mcg/actuation HFA aerosol inhaler 2 inh INHALATION DAILY gabapentin 100 mg Capsule 200 mg PO QHS benzonatate 100 mg capsule 100 mg PO TID PRN (Reason: cough) donepezil 5 mg tablet 5 mg PO QHS Rx Instructions: every other day guaifenesin [Expectorant] 200 mg tablet 600 mg PO BID PRN PRN (Reason: cough) furosemide 40 mg tablet 40 mg PO DAILY Paxlovid 300 mg (150 mg x 2)-100 mg tablets,dose pack 1 tab PO BID Rx Instructions: until 10/17/23 PreserVision AREDS 14,320-226-200 [id number] capsule 1 cap PO BID clopidogrel 75 mg tablet See Rx Instructions .ROUTE .COMPLEX Qty: 28 11RF Dose Instruction: TAKE 1 TABLET BY MOUTH DAILY Rx Instructions: TAKE 1 TABLET BY MOUTH DAILY Primary Care Provider: Jean Claude Gutierrez Referrals: Jean Claude Gutierrez MD [Primary Care Provider] - Disposition Disposition: Acute Care [facility]
[2023-10-13] MEDS: Benzonatate 100 MG Capsule PO ×2 (06:26→21:34)
[2023-10-13 07:10] LABS: Absolute Lymphocyte Count 0.86 X10^3/uL (0.83-4.51); Absolute Neutrophil Count 5.1 X10^3/uL (2.0-7.7); Basophil# 0.01 X10^3/uL; Basophil% 0.2 % (0-1); Hematocrit 35.5 % (37-47); Hemoglobin 11.5 g/dL (12.0-15.0); Lymphocyte # 0.86 X10^3/ul (0.83-4.51); Lymphocyte % 13.8 % (19-41); Mean Corp Hgb Conc 32.4 g/dL (32-36); Mean Corpuscular Hgb 33.8 pg (27.0-32.0); Mean Corpuscular Volume 104.4 fL (81-99); Mean Platelet Vol. 10.7 fl (6.2-12.0); Monocyte% 4.8 % (0-10); NRBC Flagged by Analyzer 0 % (0-5); Neutrophil # 5.05 X10^3/uL (2.7-7.7); Platelet Count 171 K/mm3 (150-450); RBC Distribution Width SD 61.5 fl (35.1-43.9); White Blood Count 6.2 K/mm3 (4.4-11.0)
[2023-10-13 07:30] LABS: Anion Gap 6 (5-15); BUN 40 mg/dL (7-18); BUN/Creat Ratio 28.4 RATIO (10-20); Calcium,Total 9.4 mg/dL (8.5-10.1); Chloride 105 mmol/L (98-107); Creatinine, Serum 1.41 mg/dL (0.55-1.02); EST Glomerular Filtration Rate 38 mL/min (>60); Est Glom Filt Rate - Afr Amer 46 mL/min (>60); Estimated Creatinine Clearance 33.04 ml/min; Glucose 135 mg/dL (74-106); Sodium Level 137 mmol/L (136-145)
[2023-10-13] MEDS: dexAMETHasone 4 MG Tablet 6 MG PO (08:37)
[2023-10-13] MEDS: Enoxaparin 40 MG/0.4 ML Syringe SC (08:38)
[2023-10-13] MEDS: Cholecalciferol (VIT D3) 25 MCG TABLET (1,000 UNITS) PO (08:38)
[2023-10-13] MEDS: Clopidogrel Bisulfate 75 MG Tablet PO (08:38)
[2023-10-13] MEDS: Folic Acid 1 MG Tablet 2 MG PO (08:38)
[2023-10-13] MEDS: Montelukast 10 MG Tablet PO (08:38)
[2023-10-13] MEDS: Furosemide 40 MG Tablet PO (08:40)
[2023-10-13] MEDS: Isosorbide Mononitrate 60 MG Tablet PO ×2 (08:40→21:34)
[2023-10-13] MEDS: Lisinopril 20 MG Tablet PO ×2 (08:41→21:35)
[2023-10-13] MEDS: Sertraline 100 MG Tablet PO (08:41)
[2023-10-13] MEDS: amLODIPine 5 MG Tablet PO (08:41)
[2023-10-13] MEDS: Allopurinol 100 MG Tablet PO (08:41)
[2023-10-13] MEDS: BRIMONIDINE 0.2% 5ML BOTTLE 2 DRP OPHTHALMIC (08:42)
[2023-10-13] MEDS: Albuterol 2.5 MG/3 ML VIAL.NEB. INHALATION ×2 (10:56→15:02)
--- NOTE | 2023-10-13 14:20 | PN_ITS ---
Subjective Subjective Patient seen and examined. Her daughter and were by her bedside. She had no active complaints. She felt her breathing was improving, especially after she had a breathing treatment. Review of systems is otherwise negative. She is on 2l of oxygen by nasal canula. Objective Data Objective Data Vital Signs: Vital Signs Temp Pulse Resp BP Pulse Ox O2 Del Method O2 Flow Rate 97.8 F 88 20 H 152/73 H 95 Nasal Cannula 2 10/13/23 08:35 10/13/23 11:12 10/13/23 11:12 10/13/23 08:35 10/13/23 04:24 10/13/23 08:35 10/13/23 08:35 Oxygen Flow Rate (L/min) 2 Oxygen Delivery Method Nasal Cannula Weight: 186 lb 8.177 oz Body Mass Index (BMI) 31.0 Lab / Micro Data 10/13/23 06:55 10/13/23 06:55 Labs: Laboratory Results - last 24 hr 10/13/23 02:10: WBC 8.9, RBC 3.27 L, Hgb 11.0 L, Hct 34.4 L, MCV 105.2 H, MCH 33.6 H, MCHC 32.0, RDW Std Deviation 61.3 H, RDW Coeff of Alexandra 16.0 H, Plt Count 179, MPV 11.4, Immature Gran % (Auto) 0.300, Neut % (Auto) 62.1, Lymph % (Auto) 19.1, [place] % (Auto) 18.0 H, Eos % (Auto) 0.0, Baso % (Auto) 0.5, Absolute Neuts (auto) 5.5, Absolute Lymphs (auto) 1.69, Nucleated RBC % 0, Differential Comment SCANNED, Sodium 137, Potassium 3.9, Chloride 104, Carbon Dioxide 27.0, Anion Gap 6, BUN 44 H, Creatinine 1.53 H, Estim Creat Clear Calc 31.60, Est GFR (MDRD) Af Amer 42 L, Est GFR (MDRD) Non-Af 35 L, BUN/Creatinine Ratio 28.8 H, Glucose 104, Calcium 9.4, B-Natriuretic Peptide 191.7 H 10/13/23 06:55: WBC 6.2, RBC 3.40 L, Hgb 11.5 L, Hct 35.5 L, MCV 104.4 H, MCH 33.8 H, MCHC 32.4, RDW Std Deviation 61.5 H, RDW Coeff of Alexandra 16.0 H, Plt Count 171, MPV 10.7, Immature Gran % (Auto) 0.200, Neut % (Auto) 81.0 H, Lymph % (Auto) 13.8 L, [place] % (Auto) 4.8, Eos % (Auto) 0.0, Baso % (Auto) 0.2, Absolute Neuts (auto) 5.1, Absolute Lymphs (auto) 0.86, Nucleated RBC % 0, Sodium 137, Potassium 4.0, Chloride 105, Carbon Dioxide 26.0, Anion Gap 6, BUN 40 H, Creatinine 1.41 H, Estim Creat Clear Calc 33.04, Est GFR (MDRD) Af Amer 46 L, Est GFR (MDRD) Non-Af 38 L, BUN/Creatinine Ratio 28.4 H, Glucose 135 H, Calcium 9.4 Micro: Microbiology 10/13/23 02:15 Mucosa - Nose SARS-CoV-2, Influenza & RSV (PCR) - Final SARS-CoV-2 (COVID 19 PCR) Radiography Diagnostic Testing: Radiology Impression Chest X-Ray 10/13/23 02:08 IMPRESSION: No evidence of acute cardiopulmonary disease. Electronically Signed: Tio Richardson DO at 2:36 EST , Physical Exam Const alert, oriented x3 and no apparent distress General Appearance: cooperative and well developed HEENT normocephalic and head/scalp atraumatic Eyes PERRL and EOMs intact bilaterally Neck no lymphadenopathy and supple Lymph Lymphatic: no lymphadenopathy noted and no lymphedema noted Resp Resp Narrative: mildly diminished breath sounds bibasally, no wheezes or crackles. On 2L of oxygen by nasal canula Cardio regular rate, regular rhythm, S1 normal heart sound, S2 normal heart sound and no murmurs GI normal to inspection, nondistended, normoactive bowel sounds, soft to palpation and non-tender Extremity normal capillary refill and no clubbing, cyanosis or edema General Extremity: no tenderness to palpation of joints or extremities Skin General Skin Exam: no breakdown Neuro CN's II-XII intact bilaterally, no focal motor deficits, no sensory deficits noted and deep tendon reflexes 2+ bilaterally Motor Exam: strength 5/5 throughout and general weakness Psych thought process normal, cooperative and affect normal Appearance: appropriate Assessment & Plan Assessment/Plan (1) Congestive heart failure (CHF): (2) COVID-19: (3) COPD (chronic obstructive pulmonary disease): PLAN: Plan #Hypoxia due to covid 19 infection * on 2L of oxygen * breathing treatment with bronchodilators * on decadron and remdesivir * titrate oxygen to maintain sats >90% * breathing treatment with bronchodilators * #Hypertension: on lisinopril and amlodipine #Hyperlipidemia: on statin #Depression: on sertraline. #History of CAD: on simvasatin and imdur as well as plavix #Dementia: on donepezil DVT prophylaxis; lovenox Charges/Coding Visit Charges Inpatient E&M: 59530 Subs Hosp L2
[2023-10-13 15:11] LABS: Alkaline Phosphatase 77 U/L (45-117)
[2023-10-13] MEDS: Remdesivir 200 MG in 0.9% Normal Saline (250mL Bag) 210 ML 250 MG IV (15:59)
[2023-10-13] MEDS: 0.9% Saline Lock 10 ML Syringe IV (15:59)
[2023-10-13] MEDS: traZODone 50 MG Tablet 75 MG PO (21:34)
[2023-10-13] MEDS: Acetaminophen 500 MG Tablet 1000 MG PO (21:34)
[2023-10-13] MEDS: Gabapentin 100 MG Capsule 200 MG PO (21:35)
[2023-10-13] MEDS: Latanoprost 0.005% 1 Bottle 1 DRP OPHTHALMIC (21:35)
[2023-10-13] MEDS: Atorvastatin Calcium 10 MG Tablet PO (21:35)
[2023-10-13] MEDS: Donepezil HCl 5 MG Tablet PO (21:35)
[2023-10-14 03:08] VITALS: BP 127/73; PULSE 66; RESP 18; TEMP 36.7; O2SAT 94
[2023-10-14 07:51] LABS: Hematocrit 36.8 % (37-47); Mean Corp Hgb Conc 32.6 g/dL (32-36); Mean Corpuscular Hgb 33.5 pg (27.0-32.0); Mean Corpuscular Volume 102.8 fL (81-99); Mean Platelet Vol. 11.1 fl (6.2-12.0); Platelet Count 180 K/mm3 (150-450); RBC Distribution Width CV 15.3 % (11.6-14.6); RBC Distribution Width SD 58.4 fl (35.1-43.9); Red Blood Count 3.58 M/mm3 (4.2-5.4); White Blood Count 7.4 K/mm3 (4.4-11.0)
[2023-10-14 08:10] LABS: ALB/GLOB Ratio 0.7 RATIO (0.9-2.4); AST(SGOT) 21 U/L (15-37); Alanine Aminotransfer ALT/SGPT 22 U/L (13-56); Albumin, Serum 3.1 g/dL (3.2-5.0); Alkaline Phosphatase 76 U/L (45-117); Anion Gap 6 (5-15); BUN 44 mg/dL (7-18); BUN/Creat Ratio 32.4 RATIO (10-20); Calcium,Total 9.7 mg/dL (8.5-10.1); Chloride 108 mmol/L (98-107); Creatinine, Serum 1.36 mg/dL (0.55-1.02); EST Glomerular Filtration Rate 40 mL/min (>60); Est Glom Filt Rate - Afr Amer 48 mL/min (>60); Estimated Creatinine Clearance 34.26 ml/min; Globulin 4.2 g/dL (2.2-4.2); Glucose 149 mg/dL (74-106); Potassium 3.9 mmol/L (3.5-5.1); Protein, Total 7.3 g/dL (6.4-8.2); Sodium Level 140 mmol/L (136-145)
[2023-10-14 09:12] VITALS: BP 137/65; PULSE 50; RESP 14; TEMP 36.3; O2SAT 98
[2023-10-14] MEDS: 0.9% Saline Lock 10 ML Syringe IV (09:16)
[2023-10-14] MEDS: Remdesivir 100 MG in 0.9% Normal Saline (250mL Bag) 230 ML 250 MG IV (09:17)
[2023-10-14] MEDS: Montelukast 10 MG Tablet PO (09:18)
[2023-10-14] MEDS: amLODIPine 5 MG Tablet PO (09:18)
[2023-10-14] MEDS: dexAMETHasone 4 MG Tablet 6 MG PO (09:18)
[2023-10-14] MEDS: Folic Acid 1 MG Tablet 2 MG PO (09:18)
[2023-10-14] MEDS: Enoxaparin 40 MG/0.4 ML Syringe SC (09:19)
[2023-10-14] MEDS: Cholecalciferol (VIT D3) 25 MCG TABLET (1,000 UNITS) PO (09:19)
[2023-10-14] MEDS: Furosemide 40 MG Tablet PO (09:19)
[2023-10-14] MEDS: Lisinopril 20 MG Tablet PO ×2 (09:19→20:38)
[2023-10-14] MEDS: Isosorbide Mononitrate 60 MG Tablet PO ×2 (09:19→21:07)
[2023-10-14] MEDS: Sertraline 100 MG Tablet PO (09:19)
[2023-10-14] MEDS: Clopidogrel Bisulfate 75 MG Tablet PO (09:19)
[2023-10-14 09:44] VITALS: PULSE 82; RESP 20
[2023-10-14] MEDS: Albuterol 2.5 MG/3 ML VIAL.NEB. INHALATION (09:45)
[2023-10-14] MEDS: BRIMONIDINE 0.2% 5ML BOTTLE 2 DRP OPHTHALMIC (10:27)
--- NOTE | 2023-10-14 11:21 | PN_ITS ---
Subjective Subjective Patient seen and examined. She says she felt much better today. She was having chest physiotherapy. She is coughing and expectorating sputum. Review of systems is otherwise negative. Objective Data Objective Data Vital Signs: Vital Signs Temp Pulse Resp BP Pulse Ox O2 Del Method O2 Flow Rate 97.4 F L 82 20 H 137/65 H 98 Nasal Cannula 2 10/14/23 09:12 10/14/23 09:44 10/14/23 09:44 10/14/23 09:12 10/14/23 09:12 10/14/23 10:00 10/14/23 10:00 Oxygen Flow Rate (L/min) 2 Oxygen Delivery Method Nasal Cannula Weight: 186 lb 8.177 oz Body Mass Index (BMI) 31.0 Intake & Output: Intake and Output for Last 24 Hours 10/12/23 10/13/23 10/14/23 23:59 23:59 23:59 Intake Total 550 / 550 250 / 250 Output Total 100 / 100 Balance 550 / 550 150 / 150 Lab / Micro Data 10/14/23 07:30 10/14/23 07:30 Labs: Laboratory Results - last 24 hr 10/13/23 06:55: Alkaline Phosphatase 77 10/14/23 07:30: WBC 7.4, RBC 3.58 L, Hgb 12.0, Hct 36.8 L, MCV 102.8 H, MCH 33.5 H, MCHC 32.6, RDW Std Deviation 58.4 H, RDW Coeff of Alexandra 15.3 H, Plt Count 180, MPV 11.1, Sodium 140, Potassium 3.9, Chloride 108 H, Carbon Dioxide 26.0, Anion Gap 6, BUN 44 H, Creatinine 1.36 H, Estim Creat Clear Calc 34.26, Est GFR (MDRD) Af Amer 48 L, Est GFR (MDRD) Non-Af 40 L, BUN/Creatinine Ratio 32.4 H, Glucose 149 H, Calcium 9.7, Total Bilirubin 0.30, AST 21, ALT 22, Alkaline Phosphatase 76, Total Protein 7.3, Albumin 3.1 L, Globulin 4.2, Albumin/Globulin Ratio 0.7 L Micro: Microbiology 10/13/23 02:15 Mucosa - Nose SARS-CoV-2, Influenza & RSV (PCR) - Final SARS-CoV-2 (COVID 19 PCR) Physical Exam Const alert, oriented x3 and no apparent distress General Appearance: cooperative and well developed HEENT normocephalic and head/scalp atraumatic Eyes PERRL and EOMs intact bilaterally Neck no lymphadenopathy and supple Lymph Lymphatic: no lymphadenopathy noted and no lymphedema noted Resp normal respiratory effort and normal air movement Resp Narrative: mildly diminished breath sounds bibasally, no wheezes or crackles. On 2L of oxygen by nasal canula Auscultation: Negative for rales, rhonchi or wheezes Cardio regular rate, regular rhythm, S1 normal heart sound, S2 normal heart sound and no murmurs GI normal to inspection, nondistended, normoactive bowel sounds, soft to palpation, non-tender and non-distended Extremity normal capillary refill and no clubbing, cyanosis or edema General Extremity: no tenderness to palpation of joints or extremities; Negative for cyanosis Skin General Skin Exam: no breakdown Neuro CN's II-XII intact bilaterally, no focal motor deficits, no sensory deficits no allan and deep tendon reflexes 2+ bilaterally Speech: speech normal Motor Exam: strength 5/5 throughout and general weakness Psych thought process normal, cooperative and affect normal Appearance: appropriate Assessment & Plan Assessment/Plan (1) Congestive heart failure (CHF): (2) COVID-19: (3) COPD (chronic obstructive pulmonary disease): PLAN: Plan #Hypoxia due to covid 19 infection * on 2L of oxygen * breathing treatment with bronchodilators * on decadron and remdesivir * titrate oxygen to maintain sats >90% * breathing treatment with bronchodilators * having chest physiotherapy * #Hypertension: on lisinopril and amlodipine #Hyperlipidemia: on statin #Depression: on sertraline. #History of CAD: on simvasatin and imdur as well as plavix #Dementia: on donepezil DVT prophylaxis; lovenox DIsposition: for likely dc over the next 24-48 hours Charges/Coding Visit Charges Inpatient E&M: 12376 Subs Hosp L2
[2023-10-14 15:03] VITALS: BP 130/70; PULSE 56; RESP 14; TEMP 36.7; O2SAT 97
[2023-10-14] MEDS: traZODone 50 MG Tablet 75 MG PO (20:38)
[2023-10-14] MEDS: Donepezil HCl 5 MG Tablet PO (20:39)
[2023-10-14] MEDS: Atorvastatin Calcium 10 MG Tablet PO (20:39)
[2023-10-14] MEDS: Gabapentin 100 MG Capsule 200 MG PO (20:39)
[2023-10-14 21:05] VITALS: BP 116/55; PULSE 55; RESP 16; TEMP 36.1; O2SAT 98
[2023-10-14] MEDS: Latanoprost 0.005% 1 Bottle 1 DRP OPHTHALMIC (21:07)
[2023-10-15 03:05] VITALS: BP 160/60; PULSE 60; RESP 16; TEMP 36.1; O2SAT 98
[2023-10-15 06:21] LABS: Absolute Lymphocyte Count 0.89 X10^3/uL (0.83-4.51); Absolute Neutrophil Count 7.7 X10^3/uL (2.0-7.7); Basophil# 0.01 X10^3/uL; Basophil% 0.1 % (0-1); Hematocrit 36.6 % (37-47); Lymphocyte # 0.89 X10^3/ul (0.83-4.51); Lymphocyte % 9.7 % (19-41); Mean Corp Hgb Conc 32.8 g/dL (32-36); Mean Corpuscular Hgb 33.4 pg (27.0-32.0); Mean Corpuscular Volume 101.9 fL (81-99); Mean Platelet Vol. 11.1 fl (6.2-12.0); Monocyte# 0.54 X10^3/uL; Monocyte% 5.9 % (0-10); NRBC Flagged by Analyzer 0 % (0-5); Neutrophil # 7.72 X10^3/uL (2.7-7.7); Neutrophil % 83.8 % (47-70); Platelet Count 170 K/mm3 (150-450); RBC Distribution Width CV 15.3 % (11.6-14.6); Red Blood Count 3.59 M/mm3 (4.2-5.4); White Blood Count 9.2 K/mm3 (4.4-11.0)
[2023-10-15 06:47] LABS: Anion Gap 3 (5-15); BUN 54 mg/dL (7-18); BUN/Creat Ratio 42.9 RATIO (10-20); Calcium,Total 9.9 mg/dL (8.5-10.1); Chloride 110 mmol/L (98-107); Creatinine, Serum 1.26 mg/dL (0.55-1.02); EST Glomerular Filtration Rate 43 mL/min (>60); Est Glom Filt Rate - Afr Amer 52 mL/min (>60); Estimated Creatinine Clearance 36.98 ml/min; Glucose 138 mg/dL (74-106); Potassium 4.1 mmol/L (3.5-5.1); Sodium Level 140 mmol/L (136-145)
--- NOTE | 2023-10-15 07:55 | CASEMGMT ---
KAHLIL faxed updates to [facility] yesterday. Jenn White FUR SEWER KAYLYN
--- NOTE | 2023-10-15 08:57 | CASEMGMT ---
Discharge Planning Per Lorna [place], clinical updates received and patient is able to return. SW updated. Tamara Hines, Discharge Planning Asst.
[2023-10-15 09:05] VITALS: BP 152/69; PULSE 60; RESP 16; TEMP 36.4; O2SAT 93
[2023-10-15] MEDS: dexAMETHasone 4 MG Tablet 6 MG PO (09:24)
[2023-10-15] MEDS: Folic Acid 1 MG Tablet 2 MG PO (09:25)
[2023-10-15] MEDS: amLODIPine 5 MG Tablet PO (09:25)
[2023-10-15] MEDS: Allopurinol 100 MG Tablet PO (09:25)
[2023-10-15] MEDS: Montelukast 10 MG Tablet PO (09:25)
[2023-10-15] MEDS: Lisinopril 20 MG Tablet PO (09:26)
[2023-10-15] MEDS: Clopidogrel Bisulfate 75 MG Tablet PO (09:26)
[2023-10-15] MEDS: Cholecalciferol (VIT D3) 25 MCG TABLET (1,000 UNITS) PO (09:26)
[2023-10-15] MEDS: Isosorbide Mononitrate 60 MG Tablet PO (09:27)
[2023-10-15] MEDS: Sertraline 100 MG Tablet PO (09:27)
[2023-10-15] MEDS: Furosemide 40 MG Tablet PO (09:27)
[2023-10-15] MEDS: Enoxaparin 40 MG/0.4 ML Syringe SC (09:27)
[2023-10-15] MEDS: BRIMONIDINE 0.2% 5ML BOTTLE 2 DRP OPHTHALMIC (09:27)
[2023-10-15] MEDS: Remdesivir 100 MG in 0.9% Normal Saline (250mL Bag) 230 ML 250 MG IV (10:06)
--- NOTE | 2023-10-15 10:06 | CASEMGMT ---
KAHLIL called patient's daughter Sabine. Sabine said the plan is for patient to return to [facility] at d/c. Sabine said she would prefer transport be arranged as patient is a little weaker than normal. Sabine also asked if patient could have home PT/OT through [facility]. Patient has had them in the past and is familiar with the therapists. KAHLIL let Sabine know SW will work on the referral. KAHLIL also let Sabine know that if patient needs O2 [facility] RN CM will set that up. Jenn White PEDIATRIC NEUROLOGIST KAYLYN
[2023-10-15] MEDS: Acetaminophen 500 MG Tablet 1000 MG PO (10:10)
--- NOTE | 2023-10-15 10:16 | CASEMGMT ---
Addendum entered by Tamara Hines 10/15/23 12:05: [facility] declined referral d/t not being in network at this time. Patients daughter updated and requested referral to [facility]. RN CM updated. Tamara Hines, Discharge Planning Asst. Original Note: Discharge Planning HH referral sent via [facility] to [facility]. Tamara Hines, Discharge Planning Asst.
[2023-10-15 10:30] VITALS: O2SAT 92; O2SAT 94
--- NOTE | 2023-10-15 13:00 | TREXTCAR_ITS ---
Diet Diet Order/Speech Therapy: 10/13/23 04:41 Diet: Regular - General Food consistency:: Regular Liquid Consistency:: Regular/Thin Dietary Modifications:: No Added Salt Type of Dietary Supplement:: Ensure Plus High Protein Diet Comments: 240mL strawberry or vanilla EPHP w/ dinner Routine Orders/Code Status Enema Type: Fleetz Enema Frequency: Daily PRN Suppository Frequency: Daily PRN O2 Frequency: PRN Keep PO Greater than or Equal to (%): 90 Therapies Weight Bearing: Weight bearing as tolerated Physical Therapy: Eval and Treat Occupational Therapy: Eval and Treat Problem/Diagnosis (1) Congestive heart failure (CHF): Status: Acute Code(s): I50.9 - Heart failure, unspecified (2) COVID-19: Status: Acute Code(s): U07.1 - COVID-19 (3) COPD (chronic obstructive pulmonary disease): Status: Chronic Code(s): J44.9 - Chronic obstructive pulmonary disease, unspecified Plan #Hypoxia due to covid 19 infection * on 2L of oxygen * breathing treatment with bronchodilators * on decadron and remdesivir * titrate oxygen to maintain sats >90% * breathing treatment with bronchodilators * having chest physiotherapy * #Hypertension: on lisinopril and amlodipine #Hyperlipidemia: on statin #Depression: on sertraline. #History of CAD: on simvasatin and imdur as well as plavix #Dementia: on donepezil DVT prophylaxis; lovenox DIsposition: for likely dc over the next 24-48 hours Allergies/Procedures Done in Hospital Allergies metoprolol tartrate [From Lopressor] Allergy (Verified 07/04/23 16:27) Unknown shellfish derived Allergy (Verified 07/04/23 16:27) Anaphylaxis Sulfa (Sulfonamide Antibiotics) Allergy (Verified 07/04/23 16:27) Rash Type of Care/Length of Stay Estimated LOS: More Than 30 Days Type of Care Needed: Skilled Rehab Potential: Fair Prognosis: Fair Additional Orders/Day of Discharge Day of Discharge: 10/15/23 Dietary and Speech Recommendations Dietitian Recommendations/Changes: Will adjust diet to regular, no added salt given CKD and lasix. Will add 240mL vanilla or strawberry ensure plus HP w/ dinner meal. Additional ONS as needed. Discharge Plan Admission Admit Date/Time: 10/13/23 04:09 Primary Reason for Your Visit: COVID, hypoxia Attending Provider: Marleny Becerra Primary Care Provider: Jean Claude Gutierrez Consulting Providers: José Rivera Patient Instructions: Coronavirus Disease 2019 (COVID-19): Overview Discharge Orders/Prescriptions Prescriptions: New dexamethasone 4 mg Tablet 6 mg PO DAILY Qty: 7 0RF Continued latanoprost 0.005 % drops 1 drp OPHTHALMIC QPM nitroglycerin 0.4 mg tablet, sublingual 0.4 mg SUBLINGUAL Q5-15M PRN (Reason: CHEST PAIN ) docusate sodium [Colace] 100 mg capsule 100 mg PO BID PRN (Reason: CONSTIPATION ) brimonidine 0.1 % drops 2 drp ophthalmic (eye) DAILY cholecalciferol (vitamin D3) 25 mcg (1,000 unit) tablet 25 mcg PO DAILY clobetasol 0.05 % cream 1 applic topical BID simvastatin 20 MG tablet 20 mg PO QHS folic acid 1 MG tablet 2 mg PO DAILY albuterol sulfate 1 INHALER inhaler 1 - 2 puff inhalation Q4H PRN PRN (Reason: Shortness Of Breath) allopurinol 100 mg tablet 200 mg PO BID Rx Instructions: 200mg BID 100mg daily every other day calcipotriene 0.005 % Cream 1 applic TOPICAL DAILY PRN (Reason: PSORIASES) Rx Instructions: rub in gently and completely lisinopril 10 mg Tablet 20 mg PO BID montelukast 10 mg tablet 10 mg PO DAILY Rhopressa 0.02 % Drops 1 drp EACH EYE DAILY isosorbide mononitrate 60 mg tablet extended release 24 hr 60 mg PO BID sertraline 50 mg tablet 100 mg PO DAILY acetaminophen 500 mg Tablet 1,000 mg PO Q6H PRN PRN (Reason: Pain Score 1-10) Qty: 0 0RF amlodipine 5 mg Tablet 5 mg PO DAILY 30 Days Qty: 30 0RF trazodone 50 mg tablet 75 mg PO QHS hydrocodone-acetaminophen 7.5-325 mg tablet 1 tab PO QHS PRN (Reason: pain) Breztri Aerosphere 160-9-4.8 mcg/actuation HFA aerosol inhaler 2 inh INHALATION DAILY gabapentin 100 mg Capsule 200 mg PO QHS benzonatate 100 mg capsule 100 mg PO TID PRN (Reason: cough) donepezil 5 mg tablet 5 mg PO QHS Rx Instructions: every other day guaifenesin [Expectorant] 200 mg tablet 600 mg PO BID PRN PRN (Reason: cough) furosemide 40 mg tablet 40 mg PO DAILY Paxlovid 300 mg (150 mg x 2)-100 mg tablets,dose pack 1 tab PO BID Rx Instructions: until 10/17/23 PreserVision AREDS [id number] [id number] capsule 1 cap PO BID clopidogrel 75 mg tablet See Rx Instructions .ROUTE .COMPLEX Qty: 28 11RF Dose Instruction: TAKE 1 TABLET BY MOUTH DAILY Rx Instructions: TAKE 1 TABLET BY MOUTH DAILY Referrals / Follow Up: Jean Claude Gutierrez MD [Primary Care Provider] - Within 1 Week Disposition Disposition (needs filled in before D/C Order can be placed): [facility]
--- NOTE | 2023-10-15 13:02 | DS.PCM_ITS ---
Providers Date of Admission: 10/13/23 Date of Discharge: 10/15/23 Primary Care Physician: Dr. Jean Claude Gutierrez MD Reason For Visit: COVID-19 VIRUS INFECTION Diagnosis Discharge Diagnosis (1) Congestive heart failure (CHF): Status: Acute Code(s): I50.9 - Heart failure, unspecified (2) COVID-19: Status: Acute Code(s): U07.1 - COVID-19 (3) COPD (chronic obstructive pulmonary disease): Status: Chronic Code(s): J44.9 - Chronic obstructive pulmonary disease, unspecified Plan #Hypoxia due to covid 19 infection * on 2L of oxygen * breathing treatment with bronchodilators * on decadron and remdesivir * titrate oxygen to maintain sats >90% * breathing treatment with bronchodilators * having chest physiotherapy * #Hypertension: on lisinopril and amlodipine #Hyperlipidemia: on statin #Depression: on sertraline. #History of CAD: on simvasatin and imdur as well as plavix #Dementia: on donepezil DVT prophylaxis; lovenox DIsposition: for likely dc over the next 24-48 hours Medications at Discharge Home Medications albuterol sulfate 90 mcg/actuation aerosol inhaler 1 - 2 puff inhalation Q4H PRN PRN Shortness Of Breath 10/10/15 folic acid 1 mg tablet 2 mg PO DAILY SUPPLEMENT 10/10/15 simvastatin 20 mg tablet 20 mg PO QHS CHOLESTEROL 10/10/15 allopurinol 100 mg tablet 200 mg PO BID GOUT 01/12/19 latanoprost 0.005 % eye drops 1 drp ophthalmic (eye) QPM GLAUCOMA 01/12/19 nitroglycerin 0.4 mg sublingual tablet 0.4 mg sublingual Q5-15M PRN CHEST PAIN 01/12/19 cholecalciferol (vitamin D3) 25 mcg (1,000 unit) tablet 25 mcg PO DAILY SUPPLEMENT 06/26/21 clobetasol 0.05 % topical cream 1 applic topical BID PSORIASES 06/26/21 brimonidine 0.1 % eye drops 2 drp ophthalmic (eye) DAILY EYE IRRITATION 07/11/21 docusate sodium 100 mg capsule (Colace) 100 mg PO BID PRN CONSTIPATION 10/08/21 vitamins A,C,K-sljb-qndqbp 4,296 mcg-226 mg-90 mg capsule (PreserVision AREDS) 1 cap PO BID EYE HEALTH 12/09/21 calcipotriene 0.005 % topical cream 1 applic topical DAILY PRN PSORIASES 01/22/23 isosorbide mononitrate 60 mg tablet,extended release 24 hr 60 mg PO BID BLOOD PRESSURE 01/22/23 lisinopril 10 mg tablet 20 mg PO BID BLOOD PRESSURE 01/22/23 montelukast 10 mg tablet 10 mg PO DAILY ALLERGIES 01/22/23 netarsudil 0.02 % eye drops (Rhopressa) 1 drp EACH EYE DAILY GLAUCOMA 01/22/23 sertraline 50 mg tablet 100 mg PO DAILY Mood 01/27/23 acetaminophen 500 mg tablet 1,000 mg (2 x 500 mg) PO Q6H PRN PRN Pain Score 1-10 #0 tabs 02/06/23 amlodipine 5 mg tablet 5 mg PO DAILY 30 days #30 tabs 02/06/23 budesonide 160 mcg-glycopyr 9 mcg-formot 4.8 mcg/actuation HFA inhaler (Hexagram 49ztri Aerosphere) 2 inh inhalation DAILY 07/04/23 gabapentin 100 mg capsule 200 mg PO QHS 07/04/23 hydrocodone 7.5 mg-acetaminophen 325 mg tablet 1 tab PO QHS PRN pain 07/04/23 trazodone 50 mg tablet 75 mg PO QHS 07/04/23 clopidogrel 75 mg tablet See Rx Instructions .Route .COMPLEX #28 TABLETS 10/05/23 benzonatate 100 mg capsule 100 mg PO TID PRN cough 10/13/23 donepezil 5 mg tablet 5 mg PO QHS 10/13/23 furosemide 40 mg tablet 40 mg PO DAILY 10/13/23 guaifenesin 200 mg tablet (Expectorant) 600 mg PO BID PRN PRN cough 10/13/23 nirmatrelvir 300 mg (150 mg x2)-ritonavir 100 mg tablet,dose pack (Paxlovid) 1 tab PO BID 10/13/23 dexamethasone 4 mg tablet 6 mg (1.5 x 4 mg) PO DAILY #7 tabs 10/15/23 Hospital Course Operations None Procedures None Summary of Care Provided Minutes Spent on Discharge: 55 Hospital Course: Patient is an 83-year-old female with past medical history as outlined. She was admitted through the ED forms had assisted living facility on 10/13/2023 with a complaint of shortness of breath. His symptoms have started about 24 hours prior to admission. She was saturating in the 70s on room air and her assisted living facility. On admission in the ED she tested positive for COVID. Flu and other respiratory viruses test was negative. She was admitted and managed for hypoxia due to COVID-19 infection. She was started on remdesivir and Decadron. She was placed on oxygen. Physical therapy was consulted. His shortness of breath gradually improved and oxygen was weaned down and eventually she did not require any oxygen at all. She did well with physical therapy and felt much better. She was discharged to her assisted living facility on 10/15/2023 on p.o. Decadron 6 mg daily for 7 days to complete the 10-day course. She is follow-up with her primary care doctor within 1 to 2 weeks. Patient seen and examined prior to discharge. She had no active complaints and had an uneventful night. Review of systems otherwise negative. Labs and vitals reviewed. Home medication reviewed and reconciled. Physical Exam Const alert, oriented x3 and no apparent distress General Appearance: cooperative, comfortable, well kempt and well developed Orientation / Consciousness: awake HEENT normocephalic, head/scalp atraumatic, hearing grossly normal bilaterally and moist oral mucous membranes Mouth: oral and palatal mucosa normal Eyes PERRL, EOMs intact bilaterally and conjunctivae normal Neck no lymphadenopathy and supple Lymph Lymphatic: no lymphadenopathy noted and no lymphedema noted Resp normal respiratory effort and normal air movement Resp Narrative: mildly diminished breath sounds bibasally, no wheezes or crackles. On 2L of oxygen by nasal canula- was weaned to room air. Auscultation: Negative for rales, rhonchi or wheezes Cardio regular rate, regular rhythm, S1 normal heart sound, S2 normal heart sound and no murmurs GI normal to inspection, nondistended, normoactive bowel sounds, soft to palpation, non-tender and non-distended Extremity normal to inspection, full ROM, normal capillary refill and no clubbing, cyanosis or edema General Extremity: no tenderness to palpation of joints or extremities; Negative for cyanosis Skin no rashes or lesions noted General Skin Exam: no breakdown Neuro oriented x3, CN's II-XII intact bilaterally, moves all extremities, no focal motor deficits, no sensory deficits noted and deep tendon reflexes 2+ bilaterally Sensorium / Orientation: awake Speech: speech normal Motor Exam: strength 5/5 throughout and general weakness Psych thought process normal, cooperative and affect normal Appearance: appropriate Weight / BMI Weight Weight: 186 lb 8.177 oz Body Mass Index (BMI) 31.0 ABG / Lab / Microbiology Data 10/15/23 06:10 10/15/23 06:10 Laboratory: Laboratory Results - last 24 hr 10/15/23 06:10: WBC 9.2, RBC 3.59 L, Hgb 12.0, Hct 36.6 L, MCV 101.9 H, MCH 33.4 H, MCHC 32.8, RDW Std Deviation 58.0 H, RDW Coeff of Alexandra 15.3 H, Plt Count 170, MPV 11.1, Immature Gran % (Auto) 0.500, Neut % (Auto) 83.8 H, Lymph % (Auto) 9.7 L, Maries % (Auto) 5.9, Eos % (Auto) 0.0, Baso % (Auto) 0.1, Absolute Neuts (auto) 7.7, Absolute Lymphs (auto) 0.89, Nucleated RBC % 0, Sodium 140, Potassium 4.1, Chloride 110 H, Carbon Dioxide 27.0, Anion Gap 3 L, BUN 54 H, Creatinine 1.26 H, Estim Creat Clear Calc 36.98, Est GFR (MDRD) Af Amer 52 L, Est GFR (MDRD) Non-Af 43 L, BUN/Creatinine Ratio 42.9 H, Glucose 138 H, Calcium 9.9 Microbiology: Microbiology 10/13/23 02:15 Mucosa - Nose SARS-CoV-2, Influenza & RSV (PCR) - Final SARS-CoV-2 (COVID 19 PCR) D/C Instructions Discharge Diet: Low fat / Low cholesterol Discharge Activity: Return to Normal Activity Weight Bearing Status: Weight bearing as tolerated Call your doctor if you observe: Fever of 101 or Higher, Shortness of breath, Dizziness, Swelling in the ankles, Chest pain and Increased palpitations (irregular heartbeat) Meaningful Use Info Meaningful Use Diagnoses (Choose all that apply): None applicable Discharge Plan Admission Admit Date/Time: 10/13/23 04:09 Primary Reason for Your Visit: COVID, hypoxia Attending Provider: Marleny Becerra Primary Care Provider: Jean Claude Gutierrez Consulting Providers: José Rivera Instructions Patient Instructions: Coronavirus Disease 2019 (COVID-19): Overview Discharge Orders/Prescriptions Prescriptions: New dexamethasone 4 mg Tablet 6 mg PO DAILY Qty: 7 0RF Continued latanoprost 0.005 % drops 1 drp OPHTHALMIC QPM nitroglycerin 0.4 mg tablet, sublingual 0.4 mg SUBLINGUAL Q5-15M PRN (Reason: CHEST PAIN ) docusate sodium [Colace] 100 mg capsule 100 mg PO BID PRN (Reason: CONSTIPATION ) brimonidine 0.1 % drops 2 drp ophthalmic (eye) DAILY cholecalciferol (vitamin D3) 25 mcg (1,000 unit) tablet 25 mcg PO DAILY clobetasol 0.05 % cream 1 applic topical BID simvastatin 20 MG tablet 20 mg PO QHS folic acid 1 MG tablet 2 mg PO DAILY albuterol sulfate 1 INHALER inhaler 1 - 2 puff inhalation Q4H PRN PRN (Reason: Shortness Of Breath) allopurinol 100 mg tablet 200 mg PO BID Rx Instructions: 200mg BID 100mg daily every other day calcipotriene 0.005 % Cream 1 applic TOPICAL DAILY PRN (Reason: PSORIASES) Rx Instructions: rub in gently and completely lisinopril 10 mg Tablet 20 mg PO BID montelukast 10 mg tablet 10 mg PO DAILY Rhopressa 0.02 % Drops 1 drp EACH EYE DAILY isosorbide mononitrate 60 mg tablet extended release 24 hr 60 mg PO BID sertraline 50 mg tablet 100 mg PO DAILY acetaminophen 500 mg Tablet 1,000 mg PO Q6H PRN PRN (Reason: Pain Score 1-10) Qty: 0 0RF amlodipine 5 mg Tablet 5 mg PO DAILY 30 Days Qty: 30 0RF trazodone 50 mg tablet 75 mg PO QHS hydrocodone-acetaminophen 7.5-325 mg tablet 1 tab PO QHS PRN (Reason: pain) Breztri Aerosphere 160-9-4.8 mcg/actuation HFA aerosol inhaler 2 inh INHALATION DAILY gabapentin 100 mg Capsule 200 mg PO QHS benzonatate 100 mg capsule 100 mg PO TID PRN (Reason: cough) donepezil 5 mg tablet 5 mg PO QHS Rx Instructions: every other day guaifenesin [Expectorant] 200 mg tablet 600 mg PO BID PRN PRN (Reason: cough) furosemide 40 mg tablet 40 mg PO DAILY Paxlovid 300 mg (150 mg x 2)-100 mg tablets,dose pack 1 tab PO BID Rx Instructions: until 10/17/23 PreserVision AREDS 14,320-226-200 [id number] capsule 1 cap PO BID clopidogrel 75 mg tablet See Rx Instructions .ROUTE .COMPLEX Qty: 28 11RF Dose Instruction: TAKE 1 TABLET BY MOUTH DAILY Rx Instructions: TAKE 1 TABLET BY MOUTH DAILY Referrals / Follow Up: Jean Claude Gutierrez MD [Primary Care Provider] - Within 1 Week Disposition Disposition (needs filled in before D/C Order can be placed[facility] Charges/Coding Visit Charges Inpatient E&M: 21978 Disch Hosp >30min
--- NOTE | 2023-10-15 13:16 | CASEMGMT ---
Addendum entered by Kerri Alexis 10/15/23 13:41: MAXINE TELLO received call back from [facility] and they are able to accept patient with start of care Thursday 10/19. MAXINE TELLO updated SW Original Note: MAXINE TELLO updated by discharge orthopedic assistant that family prefers [facility] for therapy at discharge. MAXINE TELLO called and made referral to [facility], awaiting acceptance.
--- NOTE | 2023-10-15 14:08 | CASEMGMT ---
Discharge Planning Discharge instructions faxed to [facility]. Physicians will tranport patient by wheelchair at 3:30p. Nursing, SW, and patients daughter updated. Tamara Hines, Discharge Planning Asst.
--- NOTE | 2023-10-15 14:14 | NURSING ---
report given to doron
== END 2023-10-15 16:40 | disposition skilled nursing facility (03) | DRG 178 ==
LOC: ED 03:29 → PCU 04:13
PROVIDERS: Admitting Provider Family Medicine; Emergency Provider Emergency Medicine; PCP Family Medicine; Visit Provider Student in an Organized Health Care Education/Training Program
DX: U07.1 COVID-19 (principal); I13.0 Hypertensive heart and chronic kidney disease with heart failure and stage 1 through stage 4 chronic kidney disease, or unspecified chronic kidney disease; I50.22 Chronic systolic (congestive) heart failure; F03.90 Unspecified dementia, unspecified severity, without behavioral disturbance, psychotic disturbance, mood disturbance, and anxiety; J43.9 Emphysema, unspecified; N18.30 Chronic kidney disease, stage 3 unspecified; F32.A Depression, unspecified; E78.00 Pure hypercholesterolemia, unspecified; M10.9 Gout, unspecified; I25.10 Atherosclerotic heart disease of native coronary artery without angina pectoris; G47.00 Insomnia, unspecified; Z66 Do not resuscitate; Z79.02 Long term (current) use of antithrombotics/antiplatelets; Z79.899 Other long term (current) drug therapy; Z87.891 Personal history of nicotine dependence; Z95.1 Presence of aortocoronary bypass graft
CPT/HCPCS: 36415; 71045; 80048; 80053; 83880; 84075; 85025; 85027; 87631; 93005; 94640; 94667; 94668; 97162; 97166; 97530; 97535; 99283; J7050; A4216; J0248

== ENCOUNTER 2024-10-16 19:30 | Inpatient (IN) | payer MEDICARE, SELFPAY ==
[2024-10-16 19:31] VITALS: BP 152/60; PULSE 69; RESP 18; TEMP 36.8; O2SAT 96
--- NOTE | 2024-10-16 19:53 | EX.ED.DYSGE1 ---
HPI <COY Villegas - Last Filed: 10/16/24 22:08> History of Present Illness Chief Complaint: Nosebleed Narrative Narrative: 83-year-old female was brought in from [facility] for a nosebleed that started this morning and has been on and off all day. She has history of HTN, HLD, CHF, COPD, lung cancer not being treated, CVA, DVT/PE only on Plavix. Daughter states she has had nosebleeds years ago. PFS <COY Villegas - Last Filed: 10/16/24 22:08> [facility] Medical History Acute respiratory failure with hypoxia Acute UTI Ambulates with cane Anemia Angina pectoris Anxiety Arthritis Asthma Atherosclerotic heart disease of saxman coronary artery without angina pectoris Chest pain CKD (chronic kidney disease) stage 3, GFR 30-59 ml/min Congestive heart failure (CHF) Constipation COPD (chronic obstructive pulmonary disease) COPD (chronic obstructive pulmonary disease) Coronary artery disease COVID COVID-19 Depression Depression Diarrhea Diverticulosis DVT (deep venous thrombosis) Dysplasia of cervix, unspecified Dysthymic disorder Emphysema, unspecified Essential hypertension Fatigue Forgetfulness Glaucoma Gout HFrEF (heart failure with reduced ejection fraction) History of dermatomyositis History of diverticulitis History of echocardiogram History of edema History of heart attack History of left heart catheterization (LHC) (~11/05/21) History of renal disease History of stress test Hx of intestinal obstruction Hx TIA/stroke w/o resid Hyperlipidemia Hypertension Insomnia Lichen sclerosus Lichen sclerosus Low iron Lung nodule Myalgia Osteoporosis Other pulmonary embolism and infarction Post-menopausal Pulmonary embolism Pure hypercholesterolemia PVD (peripheral vascular disease) Rectocele Restless legs Scleroderma Shortness of breath on exertion SOB (shortness of breath) Walker as ambulation aid Weakness Wears dentures Wears glasses Home Medications ?Medication ?Instructions ?Recorded ?Last Taken ?Type simvastatin 20 mg tablet 20 mg PO QHS CHOLESTEROL 10/10/15 07/03/23 History latanoprost 0.005 % eye drops 1 drp ophthalmic (eye) QPM GLAUCOMA 01/12/19 07/03/23 History nitroglycerin 0.4 mg sublingual 0.4 mg sublingual Q5-15M PRN CHEST 01/12/19 Unknown History tablet PAIN clobetasol 0.05 % topical cream 1 applic topical BID PSORIASES 06/26/21 Unknown History brimonidine 0.1 % eye drops 2 drp ophthalmic (eye) DAILY EYE 07/11/21 07/03/23 History IRRITATION docusate sodium 100 mg capsule 100 mg PO BID PRN CONSTIPATION 10/08/21 07/04/23 History (Colace) calcipotriene 0.005 % topical cream 1 applic topical DAILY PRN 01/22/23 Unknown History PSORIASES lisinopril 10 mg tablet 20 mg PO BID BLOOD PRESSURE 01/22/23 07/04/23 History montelukast 10 mg tablet 10 mg PO DAILY ALLERGIES 01/22/23 07/04/23 History netarsudil 0.02 % eye drops 1 drp EACH EYE DAILY GLAUCOMA 01/22/23 07/03/23 History (Rhopressa) acetaminophen 500 mg tablet 1,000 mg (2 x 500 mg) PO Q6H PRN 02/06/23 Unknown Rx PRN Pain Score 1-10 #0 tabs amlodipine 5 mg tablet 5 mg PO DAILY 30 days #30 tabs 02/06/23 07/04/23 Rx budesonide 160 mcg-glycopyr 9 2 inh inhalation DAILY 07/04/23 07/04/23 History mcg-formot 4.8 mcg/actuation HFA inhaler (Breztri Aerosphere) gabapentin 100 mg capsule 200 mg PO QHS 07/04/23 07/03/23 History hydrocodone 7.5 mg-acetaminophen 1 tab PO QHS PRN pain 07/04/23 07/03/23 History 325 mg tablet trazodone 50 mg tablet 75 mg PO QHS 07/04/23 07/03/23 History benzonatate 100 mg capsule 100 mg PO TID PRN cough 10/13/23 Unknown History furosemide 40 mg tablet 40 mg PO DAILY 10/13/23 Unknown History guaifenesin 200 mg tablet 600 mg PO BID PRN PRN cough 10/13/23 Unknown History (Expectorant) isosorbide mononitrate 60 mg See Rx Instructions .Route 10/28/23 Unknown Rx tablet,extended release 24 hr .COMPLEX #60 TABLETS cholecalciferol (vitamin D3) 25 25 mcg PO QDAY 06/21/24 Unknown History mcg (1,000 unit) capsule clopidogrel 75 mg tablet See Rx Instructions .Route 08/25/24 Unknown Rx .COMPLEX #28 TABLETS carbidopa 25 mg-levodopa 100 mg 2 tab PO TID 10/16/24 Unknown History tablet sertraline 100 mg tablet 100 mg PO DAILY 10/16/24 Unknown History Allergy/AdvReac Type Severity Reaction Status Date / Time metoprolol tartrate (From Allergy Unknown Verified 10/16/24 19:34 Lopressor) shellfish derived Allergy Anaphylaxis Verified 10/16/24 19:34 Sulfa (Sulfonamide Allergy Rash Verified 10/16/24 19:34 Antibiotics) Family History Father Heart disease Myocardial infarction Surgical History History of cholecystectomy History of coronary artery bypass surgery (~08/10/00) History of intraocular lens implant History of left knee replacement History of total right knee replacement Hx of colonoscopy Hx of heart bypass surgery Social History household members: spouse Smoking Status: Former smoker second hand exposure: Yes alcohol intake: never substance use type: does not use caffeine: Yes what type of physical activity do you participate in: none frequency: does not exercise ROS <COY Villegas - Last Filed: 10/16/24 22:08> ROS ED ROS Narrative Unable to obtain due to patient's dementia EXAM <COY Villegas - Last Filed: 10/16/24 22:08> Physical Exam Narrative Exam Narrative: CONST: Patient sitting in no acute distress. EYES: Normal inspection. ENT: Large blood clot in left nare. Right nare is clear. Dripping blood visible in the posterior oropharynx. NECK: Normal inspection. RESP: No respiratory distress, CTAB. CVS: Regular rate and rhythm, no murmur, no gallop. SKIN: Color normal, no rash, warm, dry, intact. EXTREMITIES: Normal appearance, no pedal edema. NEURO: Alert and answering questions appropriately. PSYCH: Normal affect. Const Vital Signs: 10/17/24 00:26 10/17/24 00:26 10/17/24 00:27 Temperature 98.0 F 98.0 F Temperature Source Oral Pulse Rate 113 H 98 96 Respiratory Rate 24 H 24 H 24 H Blood Pressure 111/91 H 111/91 H 111/91 H Blood Pressure Mean 97 97 97 Pulse Ox 99 100 100 Oxygen Delivery Method Non-Rebreather Non-Rebreather Oxygen Flow Rate (L/min) 15 15 10/17/24 00:50 10/17/24 01:00 10/17/24 01:00 Temperature 97.9 F Temperature Source Temporal Pulse Rate 118 H Respiratory Rate 24 H Blood Pressure 135/73 H Blood Pressure Mean 93 Pulse Ox 100 99 99 Oxygen Delivery Method Non-Rebreather Non-Rebreather Non-Rebreather Oxygen Flow Rate (L/min) 15 10 10 10/17/24 01:45 10/17/24 02:00 10/17/24 03:00 Temperature 97.8 F 97.9 F Temperature Source Temporal Temporal Pulse Rate 102 H 97 Respiratory Rate 24 H 22 H Blood Pressure 113/65 113/56 L Blood Pressure Mean 81 75 Pulse Ox 99 93 90 Oxygen Delivery Method Non-Rebreather Venturi Mask Venturi Mask Oxygen Flow Rate (L/min) 10 6 6 10/17/24 04:00 10/17/24 05:00 10/17/24 06:00 Temperature 97.8 F 97.9 F 97.9 F Temperature Source Temporal Temporal Oral Pulse Rate 102 H 88 105 H Respiratory Rate 24 H 26 H 24 H Blood Pressure 138/72 H 145/72 H 139/66 H Blood Pressure Mean 94 96 90 Pulse Ox 91 94 93 Oxygen Delivery Method Venturi Mask Venturi Mask Venturi Mask Oxygen Flow Rate (L/min) 6 6 6 10/17/24 07:00 10/17/24 08:01 Temperature 97.9 F Temperature Source Oral Pulse Rate 90 Respiratory Rate 16 Blood Pressure 144/74 H Blood Pressure Mean 97 Pulse Ox 94 94 Oxygen Delivery Method Venturi Mask Venturi Mask Oxygen Flow Rate (L/min) 6 4 <Dr. Davis Oreilly, DO - Last Filed: 10/16/24 22:29> Physical Exam Const Vital Signs: 10/17/24 00:26 10/17/24 00:26 10/17/24 00:27 Temperature 98.0 F 98.0 F Temperature Source Oral Pulse Rate 113 H 98 96 Respiratory Rate 24 H 24 H 24 H Blood Pressure 111/91 H 111/91 H 111/91 H Blood Pressure Mean 97 97 97 Pulse Ox 99 100 100 Oxygen Delivery Method Non-Rebreather Non-Rebreather Oxygen Flow Rate (L/min) 15 15 10/17/24 00:50 10/17/24 01:00 10/17/24 01:00 Temperature 97.9 F Temperature Source Temporal Pulse Rate 118 H Respiratory Rate 24 H Blood Pressure 135/73 H Blood Pressure Mean 93 Pulse Ox 100 99 99 Oxygen Delivery Method Non-Rebreather Non-Rebreather Non-Rebreather Oxygen Flow Rate (L/min) 15 10 10 10/17/24 01:45 10/17/24 02:00 10/17/24 03:00 Temperature 97.8 F 97.9 F Temperature Source Temporal Temporal Pulse Rate 102 H 97 Respiratory Rate 24 H 22 H Blood Pressure 113/65 113/56 L Blood Pressure Mean 81 75 Pulse Ox 99 93 90 Oxygen Delivery Method Non-Rebreather Venturi Mask Venturi Mask Oxygen Flow Rate (L/min) 10 6 6 10/17/24 04:00 10/17/24 05:00 10/17/24 06:00 Temperature 97.8 F 97.9 F 97.9 F Temperature Source Temporal Temporal Oral Pulse Rate 102 H 88 105 H Respiratory Rate 24 H 26 H 24 H Blood Pressure 138/72 H 145/72 H 139/66 H Blood Pressure Mean 94 96 90 Pulse Ox 91 94 93 Oxygen Delivery Method Venturi Mask Venturi Mask Venturi Mask Oxygen Flow Rate (L/min) 6 6 6 10/17/24 07:00 10/17/24 08:01 Temperature 97.9 F Temperature Source Oral Pulse Rate 90 Respiratory Rate 16 Blood Pressure 144/74 H Blood Pressure Mean 97 Pulse Ox 94 94 Oxygen Delivery Method Venturi Mask Venturi Mask Oxygen Flow Rate (L/min) 6 4 <Dr. Andrew Pascual, DO - Last Filed: 10/18/24 00:17> Physical Exam Const Vital Signs: 10/17/24 00:26 10/17/24 00:26 10/17/24 00:27 Temperature 98.0 F 98.0 F Temperature Source Oral Pulse Rate 113 H 98 96 Respiratory Rate 24 H 24 H 24 H Blood Pressure 111/91 H 111/91 H 111/91 H Blood Pressure Mean 97 97 97 Pulse Ox 99 100 100 Oxygen Delivery Method Non-Rebreather Non-Rebreather Oxygen Flow Rate (L/min) 15 15 10/17/24 00:50 10/17/24 01:00 10/17/24 01:00 Temperature 97.9 F Temperature Source Temporal Pulse Rate 118 H Respiratory Rate 24 H Blood Pressure 135/73 H Blood Pressure Mean 93 Pulse Ox 100 99 99 Oxygen Delivery Method Non-Rebreather Non-Rebreather Non-Rebreather Oxygen Flow Rate (L/min) 15 10 10 10/17/24 01:45 10/17/24 02:00 10/17/24 03:00 Temperature 97.8 F 97.9 F Temperature Source Temporal Temporal Pulse Rate 102 H 97 Respiratory Rate 24 H 22 H Blood Pressure 113/65 113/56 L Blood Pressure Mean 81 75 Pulse Ox 99 93 90 Oxygen Delivery Method Non-Rebreather Venturi Mask Venturi Mask Oxygen Flow Rate (L/min) 10 6 6 10/17/24 04:00 10/17/24 05:00 10/17/24 06:00 Temperature 97.8 F 97.9 F 97.9 F Temperature Source Temporal Temporal Oral Pulse Rate 102 H 88 105 H Respiratory Rate 24 H 26 H 24 H Blood Pressure 138/72 H 145/72 H 139/66 H Blood Pressure Mean 94 96 90 Pulse Ox 91 94 93 Oxygen Delivery Method Venturi Mask Venturi Mask Venturi Mask Oxygen Flow Rate (L/min) 6 6 6 10/17/24 07:00 10/17/24 08:01 Temperature 97.9 F Temperature Source Oral Pulse Rate 90 Respiratory Rate 16 Blood Pressure 144/74 H Blood Pressure Mean 97 Pulse Ox 94 94 Oxygen Delivery Method Venturi Mask Venturi Mask Oxygen Flow Rate (L/min) 6 4 [facility] <COY Villegas - Last Filed: 10/16/24 22:08> [facility] Narrative Medical decision making narrative: History gathered from: Patient's daughter 84-year-old female on Plavix presents with a left-sided nosebleed. She appears well and nontoxic. Vital signs stable. Initially she had a large blood clot in the left nare and I could see active bleeding in the posterior oropharynx. I had her blow her nose and a large clot came out of the left nostril. I do not see any anterior nasal source of bleeding. Since there was continued slow bleeding visible in the posterior oropharynx I had my attending assist and placed a 7.5 cm Rhino Rocket. Patient was observed and around 8:50 PM the nurse noted she was hypoxic to the mid 70s and gurgling more. A nasal cannula was placed in her mouth for oxygenation and when suctioning her mouth it looks like maybe the blood may be from below rather than a posterior nasal bleed. Respiratory therapy is providing deep suction. Bilateral nasal packing was placed and she was put on a nonrebreather at 15 L. 2 peripheral IV lines were established and blood work and type screen were ordered. Hemoglobin is 13.2. Coags normal. BUN is 51, creatinine 1.48. She has chronic kidney disease. EKG shows sinus tachycardia at 103 bpm. Inferior leads have some ST changes however it is a poor baseline. Troponin is 3. Since this potentially could be hemoptysis a CTA was ordered. Patient remains hemodynamically stable. Her daughter Sabine who was at bedside is her POA. The patient had been full code in the past but she states now she would like her to be DNR CCA. I had an extensive discussion with her what this entails and she understands and signed the form. Testing was pending and signed over to the attending. Lab Data Attestation: I reviewed the patient's lab results. Labs: Laboratory Results - last 24 hr 10/17/24 03:35 Hgb 11.4 L Hct 36.9 L Radiography Diagnostic Testing: Clinical Impression(s) from Imaging Studies Chest CTA 10/16/24 20:46 IMPRESSION: 1. Negative for pulmonary embolism. 2. Mild bibasilar reticular and ground-glass opacities which may relate to fibrosis and/or a chronic infectious/inflammatory process. 3. Emphysema and coronary artery disease. 4. Chronic granulomatous disease. One or more dose reduction techniques were used (e.g., Automated exposure control, adjustment of the mA and/or kV according to patient size, use of iterative reconstruction technique). Reading Location: [facility] <Dr. Davis Oreilly, DO - Last Filed: 10/16/24 22:29> [facility] Lab Data Labs: Laboratory Results - last 24 hr 10/17/24 03:35 Hgb 11.4 L Hct 36.9 L Radiography Diagnostic Testing: Clinical Impression(s) from Imaging Studies Chest CTA 10/16/24 20:46 IMPRESSION: 1. Negative for pulmonary embolism. 2. Mild bibasilar reticular and ground-glass opacities which may relate to fibrosis and/or a chronic infectious/inflammatory process. 3. Emphysema and coronary artery disease. 4. Chronic granulomatous disease. One or more dose reduction techniques were used (e.g., Automated exposure control, adjustment of the mA and/or kV according to patient size, use of iterative reconstruction technique). [facility] Treatment and Re-Evaluation :: I have personally performed a face to face assessment of the patient and have reviewed the ROSALINA Note. I performed a substantive portion of the visit including all aspects of the following. My alejandro findings include: History: Patient presents with epistaxis that began tonight. Patient states the bleeding was coming from the left nares. Patient also noted bleeding going down the back of her throat. Patient denies any trauma or injury. Patient denies any fevers or chills. Patient was unable to stop the bleeding. Patient is on Plavix but is not on any anticoagulants. Exam: Vital signs are stable except for mildly elevated blood pressure 152/60. Patient is afebrile. Patient is in no acute distress. There is some dried blood noted in the left nares. There is some bleeding in the oropharynx. There is no septal deviation or septal hematoma noted. Medical Decision Making: Afrin and lidocaine was instilled in the left nares. Initially a nasal pledget was placed in the left nares. There is some bleeding from the oropharynx with this in place. Therefore, a long anterior posterior nasal packing was placed in the left nares. This was soaked with Afrin and lidocaine prior to insertion. Patient tolerated the procedure well. Patient was observed here in the emergency department. Patient had worsening of her bleeding. Because of this, the right nares was packed with a several 0.5 cm anterior posterior rapid Rhino. Patient was having bleeding in her oropharynx. This was attempted to be suctioned. It is unclear if the bleeding was coming from the posterior nares or if she was coughing this up. Therefore further testing was pursued. CBC was obtained to assess for leukocytosis and anemia. Basic metabolic profile was obtained to assess for electrolyte abnormality and renal function. PT with INR PTT were obtained to assess for coagulopathy. High-sensitivity troponin will was obtained to assess for cardiac ischemia. EKG was obtained to assess for cardiac dysrhythmia and cardiac ischemia. CTA of the chest was obtained to assess for lung mass and pulmonary embolism. CBC was reviewed. Hemoglobin was 13.2 and hematocrit was 41.1. White blood cell count was normal at 10.9. Platelets were normal at 167. PT with INR and PTT were reviewed and were within normal limits. Basic metabolic profile was reviewed. BUN was 51 and creatinine was 1.48. These are consistent with previous results. High-sensitivity troponin was reviewed and was normal at 3. Blood type was O+. Patient was still having some bleeding around the rapid Rhino packing. The rapid Rhino was inflated with more air. There is still persistent bleeding. Because of this, patient was given IV tranexamic acid. Patient was also given IV fluids because of the dye load for the CTA and chronic kidney disease. <Dr. Andrew Pascual, DO - Last Filed: 10/18/24 00:17> [facility] Lab Data Labs: Laboratory Results - last 24 hr 10/17/24 03:35 Hgb 11.4 L Hct 36.9 L Radiography Diagnostic Testing: Clinical Impression(s) from Imaging Studies Chest CTA 10/16/24 20:46 IMPRESSION: 1. Negative for pulmonary embolism. 2. Mild bibasilar reticular and ground-glass opacities which may relate to fibrosis and/or a chronic infectious/inflammatory process. 3. Emphysema and coronary artery disease. 4. Chronic granulomatous disease. One or more dose reduction techniques were used (e.g., Automated exposure control, adjustment of the mA and/or kV according to patient size, use of iterative reconstruction technique). [facility] Treatment and Re-Evaluation :: I have personally performed a face to face assessment of the patient and have reviewed the ROSALINA Note. I performed a substantive portion of the visit including all aspects of the following. My alejandro findings include: History: Patient presents with epistaxis that began tonight. Patient states the bleeding was coming from the left nares. Patient also noted bleeding going down the back of her throat. Patient denies any trauma or injury. Patient denies any fevers or chills. Patient was unable to stop the bleeding. Patient is on Plavix but is not on any anticoagulants. Exam: Vital signs are stable except for mildly elevated blood pressure 152/60. Patient is afebrile. Patient is in no acute distress. There is some dried blood noted in the left nares. There is some bleeding in the oropharynx. There is no septal deviation or septal hematoma noted. Medical Decision Making: Afrin and lidocaine was instilled in the left nares. Initially a nasal pledget was placed in the left nares. There is some bleeding from the oropharynx with this in place. Therefore, a long anterior posterior nasal packing was placed in the left nares. This was soaked with Afrin and lidocaine prior to insertion. Patient tolerated the procedure well. Patient was observed here in the emergency department. Patient had worsening of her bleeding. Because of this, the right nares was packed with a several 0.5 cm anterior posterior rapid Rhino. Patient was having bleeding in her oropharynx. This was attempted to be suctioned. It is unclear if the bleeding was coming from the posterior nares or if she was coughing this up. Therefore further testing was pursued. CBC was obtained to assess for leukocytosis and anemia. Basic metabolic profile was obtained to assess for electrolyte abnormality and renal function. PT with INR PTT were obtained to assess for coagulopathy. High-sensitivity troponin will was obtained to assess for cardiac ischemia. EKG was obtained to assess for cardiac dysrhythmia and cardiac ischemia. CTA of the chest was obtained to assess for lung mass and pulmonary embolism. CBC was reviewed. Hemoglobin was 13.2 and hematocrit was 41.1. White blood cell count was normal at 10.9. Platelets were normal at 167. PT with INR and PTT were reviewed and were within normal limits. Basic metabolic profile was reviewed. BUN was 51 and creatinine was 1.48. These are consistent with previous results. High-sensitivity troponin was reviewed and was normal at 3. Blood type was O+. Patient was still having some bleeding around the rapid Rhino packing. The rapid Rhino was inflated with more air. There is still persistent bleeding. Because of this, patient was given IV tranexamic acid. Patient was also given IV fluids because of the dye load for the CTA and chronic kidney disease. 2215: Le. Patient was signed out to me pending CT chest results with epistaxis bilateral nasal packing. CT scan results no PE however noted groundglass appearance lower lobes. She was hypoxic in the ER requiring oxygen. She came more agitated and tachycardic she was ordered for Ativan by primary doctor of 0.5 mg. Status post TXA. With tachycardia and tachypnea added lactic acid blood cultures Rocephin and Zithromax started for coverage. 2300: Still bleeding left nare, I swapped her Rhino Rocket 7.5 cm, peers to control the bleeding. She was allowed to rinse her mouth. 2350: Called back to room, patient starting to rebleed on the left side and she pulled her Rhino Rocket on the left side. Nurse report there was a clot removed left side. Evaluation, no current active bleeding posteriorly or anteriorly. Right side remains intact. Will continue to monitor. Awaiting callback from ENT as she has been established with [facility] in the past per family. Will order for additional 0.5 of Ativan as she is more agitated and family reports she does sundown. 0018: No current rebleeding, heart rate down to 100. Discussed with ENT who was not on-call Dr. Cline. Patient only been seen once years ago in the office therefore was not established patient. They recommended transfer to higher care facility for continued management. Will discuss with family for transfer process. 0135: I spoke with [facility] transfer center and bakery decorator Dr. Garcia I discussed patient's history findings and concerns. Patient was on 15 L nonrebreather however symptoms were improving with vitals. She states if patient is requiring that much oxygen she would need ICU and there is no beds at this time however patient can be weaned down to 6 L or less with stability can potentially admit to the medical floor there. Therefore patient was being weaned down on oxygen after discussion. 0218: Received call back from transfer center spoke with hospitalist Dr. Tubbs, at this time patient on 6 L vent mask, pulse ox 90-93% no respite distress there is no bleeding. Patient is accepted to medicine service waiting for bed available. Discussed if patient does require increased oxygenation will need to contact ICU. Will continue to monitor. 0330: While monitoring with bleeding issues earlier recheck H&H. Hemoglobin 7.4 down from 13.2 earlier. 0555: Currently still on 6 L Ventimask vitals stable 94% pulse ox. No rebleeding at this point. 0730: Patient became more restless and moving around. Daughter requesting Ativan. This was ordered. Still no bleeding at this time. Vent mask oxygen [address] <Dr. Andrew Pascual, DO - Last Filed: 10/18/24 00:17> Critical Care Time Critical Care Time: Yes Critical care time (excluding procedures): 30-74 minutes, Discussing w/Patient &/or Family/Shift Supervisor, Discussing w/Consultants, Arranging Admission or Transfer, Performing Direct Patient Care at Bedside and - (60 minutes.) Discharge Plan Triage Chief Complaint: Nosebleed ED Midlevel Provider: Francisca Quiroz ED Provider: Davis Oreilly Dx/Rx/DC Orders Clinical Impression: Epistaxis, Pneumonia, Hypoxia, DNR (do not resuscitate) Primary Care Provider: Jean Claude Gutierrez Disposition Disposition: DC/Tx to Another Type of HCF Discharge Date/Time: 10/17/24 09:49
[2024-10-16] MEDS: Oxymetazoline 0.05% 1 SPRAY SPRAY.BTL 2 SPRAY NASAL (20:09)
[2024-10-16] MEDS: Lidocaine 1% /Epi 1:100 (20ml) 20 ML Vial INFILT (20:09)
[2024-10-16 20:34] VITALS: BP 169/110; PULSE 86
[2024-10-16 20:35] VITALS: O2SAT 75
--- NOTE | 2024-10-16 20:46 | CT_ITS ---
PROCEDURE: CTA chest REASON FOR EXAM: Hemoptysis TECHNIQUE: Multiple contiguous axial images of the chest were obtained after the administration of intravenous contrast. Two-dimensional and three-dimensional MIP coronal and sagittal reformatted images were reconstructed. Low-dose imaging technique was utilized. COMPARISON: 04/21/2023 FINDINGS: Heart size is within normal limits. Moderate three-vessel coronary artery calcifications. No significant pericardial effusion. Calcified nonaneurysmal thoracic aorta without dissection. Normal caliber pulmonary arteries without filling defects. No suspicious adenopathy. Sequelae of chronic granulomatous disease. No acute findings in the visualized upper abdomen. Superficial soft tissues are within normal limits. Central airways are patent. No focal consolidation, pleural effusion or pneumothorax. Similar-appearing subpleural reticular and ground-glass opacities in the posterior lower lobes which may relate to mild fibrosis versus a chronic infectious/inflammatory process. Unchanged focal scarring in the lingula. No suspicious pulmonary mass. Mild emphysema. No acute osseous abnormality. Degenerative changes of the spine. CT/CTA Chest W/WO Contrast IMPRESSION: 1. Negative for pulmonary embolism. 2. Mild bibasilar reticular and ground-glass opacities which may relate to fibr osis and/or a chronic infectious/inflammatory process. 3. Emphysema and coronary artery disease. 4. Chronic granulomatous disease. One or more dose reduction techniques were used (e.g., Automated exposure contr ol, adjustment of the mA and/or kV according to patient size, use of iterative reconstruction technique). Reading Location: [facility]
--- NOTE | 2024-10-16 20:47 | EKG12_ITS ---
Test Reason : DYSRHYTHMIA Blood Pressure : */* mmHG Vent. Rate : 103 BPM Atrial Rate : 103 BPM P-R Int : 186 ms QRS Dur : 98 ms QT Int : 342 ms P-R-T Axes : 83 59 -34 degrees QTcB Int : [address] & T wave abnormality, consider inferior ischemia Abnormal ECG Confirmed by Pierce Lemus ([id number]), editor managing director ALEXANDER MCDOWELL ([id number]) on 10/19/2024 6:03:37 AM Referred By: Confirmed By: Pierce Lemus
[2024-10-16 21:20] LABS: Absolute Lymphocyte Count 2.81 X10^3/uL (0.83-4.51); Absolute Neutrophil Count 6.4 X10^3/uL (2.0-7.7); Basophil# 0.07 X10^3/uL; Basophil% 0.6 % (0-1); Eosinophil# 0.24 X10^3/uL; Eosinophils% 2.2 % (0-5); Hematocrit 41.1 % (37-47); Hemoglobin 13.2 g/dL (12.0-15.0); Lymphocyte # 2.81 X10^3/ul (0.83-4.51); Lymphocyte % 25.8 % (19-41); Mean Corp Hgb Conc 32.1 g/dL (32-36); Mean Corpuscular Hgb 33.8 pg (27.0-32.0); Mean Corpuscular Volume 105.4 fL (81-99); Mean Platelet Vol. 12.4 fl (6.2-12.0); Monocyte# 1.28 X10^3/uL; Monocyte% 11.8 % (0-10); NRBC Flagged by Analyzer 0 % (0-5); Neutrophil # 6.43 X10^3/uL (2.7-7.7); Neutrophil % 59.1 % (47-70); Platelet Count 167 K/mm3 (150-450); RBC Distribution Width CV 13.3 % (11.6-14.6); RBC Distribution Width SD 51.8 fl (35.1-43.9); White Blood Count 10.9 K/mm3 (4.4-11.0)
[2024-10-16 21:21] LABS: Prothrombin Time (Protime)PT. 13.1 SECONDS (11.7-14.9)
[2024-10-16 21:22] LABS: Partial Thromboplast Time 26.4 Seconds (24.1-36.2)
[2024-10-16 21:29] VITALS: BP 189/99; PULSE 102; O2SAT 98
[2024-10-16 21:52] LABS: Anion Gap 6 (5-15); BUN 51 mg/dL (7-18); BUN/Creat Ratio 34.5 RATIO (10-20); Chloride 108 mmol/L (98-107); Creatinine, Serum 1.48 mg/dL (0.55-1.02); EST Glomerular Filtration Rate 36 mL/min (>60); Est Glom Filt Rate - Afr Amer 43 mL/min (>60); Estimated Creatinine Clearance 42.97 ml/min; Glucose 106 mg/dL (74-106); Potassium 4.2 mmol/L (3.5-5.1); Sodium Level 143 mmol/L (136-145); Troponin-I HS (w/2H Reflex) 3 pg/mL (3.0-54.0)
[2024-10-16] MEDS: TRANEXAMIC ACID 1,000 MG in 0.9% Normal Saline (100mL Bag) 100 ML 440 MG IV (22:36)
[2024-10-16 22:37] VITALS: BP 211/147; PULSE 144; RESP 30; O2SAT 98
[2024-10-16] MEDS: 0.9% Normal Saline (1000mL) 1,000 ML 1000 ML IV (22:37)
[2024-10-16] MEDS: Lorazepam 2 MG/ML WCH Syringe 0.5 MG IV (22:46)
[2024-10-16 23:02] LABS: Reflex Troponin-HS? (from REC) Y
[2024-10-16] MEDS: Ceftriaxone 2 GM in 0.9% Normal Saline (50mL MB+) 50 ML IV (23:21)
[2024-10-16 23:50] LABS: Troponin-I HS 26 pg/mL (3.0-54.0)
--- NOTE | 2024-10-16 23:50 | NURSING ---
This RN at bedside suctioning patient's mouth d/t increased gurgling from the patient's uncontrolled nosebleed. Patient is agitated and restless, pulling at cords and the sheets. The patient pulled out her packing in her left nares at this time. notified.
[2024-10-16 23:57] LABS: Lactic Acid 1.3 mmol/L (0.4-1.9)
[2024-10-17] VITALS (17 sets, daily range): BP systolic 111–145; BP diastolic 56–91; PULSE 66–118; RESP 16–26; TEMP 36.6–36.7; O2SAT 90–100
[2024-10-17] MEDS: Azithromycin 500 MG in 0.9% Normal Saline (250mL Bag) 250 ML 255 MG IV (00:16)
--- NOTE | 2024-10-17 00:19 | PCM.HOSP.N ---
Hospitalist Note Called per ED physician for consideration of admission room 3 with intractable epistaxis, acute blood loss anemia and significant aspiration with evident respiratory distress. Contacted ENT Dr. Cline and discussed case at length. From discussion with family they noted that patient had seen him once remotely at least greater than 3 to 5 years previous for an epistaxis event x 1. Discussed her presentation and the events including persistent nose bleeding throughout the day eventually leading to ED evaluation with initial unilateral nasal rocket packing eventually bilateral however patient pulled 1 out and does have underlying significant dementia and agitation requiring one-to-one nursing care per discussion with staff. Given this he recommended patient be transition to a tertiary facility as she could need very frequent ENT interventions and would be best suited to a tertiary program.
[2024-10-17] MEDS: Lorazepam 2 MG/ML WCH Syringe 0.5 MG IV ×2 (01:55→07:55)
[2024-10-17 03:39] LABS: Hematocrit 36.9 % (37-47); Hemoglobin 11.4 g/dL (12.0-15.0)
[2024-10-17] MEDS: Lorazepam 2 MG/ML WCH Syringe 1 MG IV (09:08)
--- NOTE | 2024-10-17 10:19 | NURSING ---
[facility] CALLED TO EVALUATE. PRIMARY RN BEDSIDE. 6l VENTI MASK, 98% SPO2 NOTED INCREASE RR. PT OPENS EYE AND VERBALLY RESPONSIVE. FAMILY BEDSIDE
--- NOTE | 2024-10-17 11:56 | NURSING ---
pt meds have still not arrived from Rx for pt administration
[2024-10-17] MEDS: LORazepam 2 MG/ML Syringe 1 MG IV ×2 (12:30→16:09)
[2024-10-17] MEDS: Ipratropium/Albuterol Sulfate 3 ML AMPUL.NEB INHALATION (14:01)
--- NOTE | 2024-10-17 14:14 | NURSING ---
dR. Dinero AND PRIMARY RN NOTIFIED OF BED ASSIGNMENT AT [facility] MAIN, BED [id number] 1. NUMBER FOR REPORT [phone] JACK Tucker/ RAGHAV.
--- NOTE | 2024-10-17 14:53 | CASEMGMT ---
Insurance review for hospitals In-network with [facility] insurance if transfer is recommended is as follows: [facility], [facility], [facility], [facility], [facility], [place], , [place], [facility], [facility], and [place]. Tamara Hines, Discharge Planning Asst.
--- NOTE | 2024-10-17 15:31 | NURSING ---
report called to kathrin @ [facility] Dilshad/george/goldy
--- NOTE | 2024-10-17 15:49 | PCM.HP.STD ---
HPI - General General Date of Admission: 10/17/24 Date of Service: 10/17/24 Chief Complaint: Epistaxis, hypoxia, pneumonia HPI Narrative TALIA BURT, is a 84 F who presents to the emergency room at [facility] from a local assisted care facility with complaints of nosebleed. Patient has a history of dementia and information was not able to be obtained from the patient. According to the facility, patient has had 3 nosebleeds in a period of 24 hours and they were unable to stop the last nosebleed and brought the patient to the ER for eval and treatment. On examination in the emergency room, patient presented with a left-sided nosebleed, the ER physician could see active bleeding the posterior oropharynx, and a 7.5 cm Rhino Rocket was placed and the patient was observed, shortly afterwards the nurse noted that the patient was hypoxic in the mid 70s on room air and there was some gurgling noted. A nasal cannula was placed in her mouth for oxygenation and deep suction was provided by respiratory therapy. Bilateral nasal packing was placed and patient was placed on a nonrebreather at 15 L, lab obtained showed hemoglobin of 13.2, coags were normal, BUN was 51 and creatinine was 1.48. Patient's POA stated that the patient was a DNR CC arrest without intubation. CTA of the chest was obtained that was negative for pulmonary embolism, there were mild bibasilar reticular and groundglass opacities which may relate to fibrosis and/or chronic infectious/inflammatory process, there was also noted to be emphysema present. Patient was given IV tranexamic acid, patient was given IV Rocephin and Zithromax for coverage for suspected pneumonia. Case was discussed with ENT who was not on-call, they recommended transfer to higher facility and [facility] was contacted and due to the fact the patient could be weaned down on her oxygen, the patient was accepted to the medical service at [facility] in [facility] and was waiting for bed availability. In the meantime, I was contacted by the emergency room and it was requested that I admit the patient to the medical floor until a bed became available. Patient was admitted to [place] [address] for further care. [facility] Medical History Acute respiratory failure with hypoxia Acute UTI Ambulates with cane Anemia Angina pectoris Anxiety Arthritis Asthma Atherosclerotic heart disease of [place] coronary artery without angina pectoris Chest pain CKD (chronic kidney disease) stage 3, GFR 30-59 ml/min Congestive heart failure (CHF) Constipation COPD (chronic obstructive pulmonary disease) COPD (chronic obstructive pulmonary disease) Coronary artery disease COVID COVID-19 Depression Depression Diarrhea Diverticulosis DVT (deep venous thrombosis) Dysplasia of cervix, unspecified Dysthymic disorder Emphysema, unspecified Essential hypertension Fatigue Forgetfulness Glaucoma Gout HFrEF (heart failure with reduced ejection fraction) History of dermatomyositis History of diverticulitis History of echocardiogram History of edema History of heart attack History of left heart catheterization (LHC) (~11/05/21) History of renal disease History of stress test Hx of intestinal obstruction Hx TIA/stroke w/o resid Hyperlipidemia Hypertension Insomnia Lichen sclerosus Lichen sclerosus Low iron Lung nodule Myalgia Osteoporosis Other pulmonary embolism and infarction Post-menopausal Pulmonary embolism Pure hypercholesterolemia PVD (peripheral vascular disease) Rectocele Restless legs Scleroderma Shortness of breath on exertion SOB (shortness of breath) Walker as ambulation aid Weakness Wears dentures Wears glasses Home Medications ?Medication ?Instructions ?Recorded ?Last Taken ?Type simvastatin 20 mg tablet 20 mg PO QHS CHOLESTEROL 10/10/15 07/03/23 History latanoprost 0.005 % eye drops 1 drp ophthalmic (eye) QPM GLAUCOMA 01/12/19 07/03/23 History nitroglycerin 0.4 mg sublingual 0.4 mg sublingual Q5-15M PRN CHEST 01/12/19 Unknown History tablet PAIN clobetasol 0.05 % topical cream 1 applic topical BID PSORIASES 06/26/21 Unknown History brimonidine 0.1 % eye drops 2 drp ophthalmic (eye) DAILY EYE 07/11/21 07/03/23 History IRRITATION docusate sodium 100 mg capsule 100 mg PO BID PRN CONSTIPATION 10/08/21 07/04/23 History (Colace) calcipotriene 0.005 % topical cream 1 applic topical DAILY PRN 01/22/23 Unknown History PSORIASES lisinopril 10 mg tablet 20 mg PO BID BLOOD PRESSURE 01/22/23 07/04/23 History montelukast 10 mg tablet 10 mg PO DAILY ALLERGIES 01/22/23 07/04/23 History netarsudil 0.02 % eye drops 1 drp EACH EYE DAILY GLAUCOMA 01/22/23 07/03/23 History (Rhopressa) acetaminophen 500 mg tablet 1,000 mg (2 x 500 mg) PO Q6H PRN 02/06/23 Unknown Rx PRN Pain Score 1-10 #0 tabs amlodipine 5 mg tablet 5 mg PO DAILY 30 days #30 tabs 02/06/23 07/04/23 Rx budesonide 160 mcg-glycopyr 9 2 inh inhalation DAILY 07/04/23 07/04/23 History mcg-formot 4.8 mcg/actuation HFA inhaler (Breztri Aerosphere) gabapentin 100 mg capsule 200 mg PO QHS 07/04/23 07/03/23 History hydrocodone 7.5 mg-acetaminophen 1 tab PO QHS PRN pain 07/04/23 07/03/23 History 325 mg tablet trazodone 50 mg tablet 75 mg PO QHS 07/04/23 07/03/23 History benzonatate 100 mg capsule 100 mg PO TID PRN cough 10/13/23 Unknown History furosemide 40 mg tablet 40 mg PO DAILY 10/13/23 Unknown History guaifenesin 200 mg tablet 600 mg PO BID PRN PRN cough 10/13/23 Unknown History (Expectorant) isosorbide mononitrate 60 mg See Rx Instructions .Route 10/28/23 Unknown Rx tablet,extended release 24 hr .COMPLEX #60 TABLETS cholecalciferol (vitamin D3) 25 25 mcg PO QDAY 06/21/24 Unknown History mcg (1,000 unit) capsule clopidogrel 75 mg tablet See Rx Instructions .Route 08/25/24 Unknown Rx .COMPLEX #28 TABLETS carbidopa 25 mg-levodopa 100 mg 2 tab PO TID 10/16/24 Unknown History tablet sertraline 100 mg tablet 100 mg PO DAILY 10/16/24 Unknown History Allergy/AdvReac Type Severity Reaction Status Date / Time metoprolol tartrate (From Allergy Unknown Verified 10/16/24 19:34 Lopressor) shellfish derived Allergy Anaphylaxis Verified 10/16/24 19:34 Sulfa (Sulfonamide Allergy Rash Verified 10/16/24 19:34 Antibiotics) Family History Father Heart disease Myocardial infarction Surgical History History of cholecystectomy History of coronary artery bypass surgery (~08/10/00) History of intraocular lens implant History of left knee replacement History of total right knee replacement Hx of colonoscopy Hx of heart bypass surgery Social History household members: spouse Smoking Status: Former smoker second hand exposure: Yes alcohol intake: never substance use type: does not use caffeine: Yes what type of physical activity do you participate in: none frequency: does not exercise ROS ROS Narrative Review of systems could not be obtained from the patient due to dementia Vital Signs Vital Signs Vital Signs: 10/16/24 19:31 10/16/24 20:34 10/16/24 20:35 Temperature 98.2 F Temperature Source Oral Pulse Rate 69 86 Respiratory Rate 18 Respiratory Pattern Blood Pressure 152/60 H 169/110 H Blood Pressure Mean 90 129 Blood Pressure Source Blood Pressure Position Blood Pressure Location Pulse Ox 96 75 Oxygen Delivery Method Room Air Room Air Oxygen Flow Rate (L/min) Fraction of Inspired Oxygen (FIO2) 10/16/24 20:40 10/16/24 21:29 10/16/24 22:37 Temperature Temperature Source Pulse Rate 102 H 144 H Respiratory Rate 30 H Respiratory Pattern Blood Pressure 189/99 H 211/147 H Blood Pressure Mean 129 168 Blood Pressure Source Blood Pressure Position Blood Pressure Location Pulse Ox 98 98 Oxygen Delivery Method Non-Rebreather Non-Rebreather Non-Rebreather Oxygen Flow Rate (L/min) 15 15 15 Fraction of Inspired Oxygen (FIO2) 10/17/24 00:26 10/17/24 00:26 10/17/24 00:27 Temperature 98.0 F 98.0 F Temperature Source Oral Pulse Rate 113 H 98 96 Respiratory Rate 24 H 24 H 24 H Respiratory Pattern Blood Pressure 111/91 H 111/91 H 111/91 H Blood Pressure Mean 97 97 97 Blood Pressure Source Blood Pressure Position Blood Pressure Location Pulse Ox 99 100 100 Oxygen Delivery Method Non-Rebreather Non-Rebreather Oxygen Flow Rate (L/min) 15 15 Fraction of Inspired Oxygen (FIO2) 10/17/24 00:50 10/17/24 01:00 10/17/24 01:00 Temperature 97.9 F Temperature Source Temporal Pulse Rate 118 H Respiratory Rate 24 H Respiratory Pattern Blood Pressure 135/73 H Blood Pressure Mean 93 Blood Pressure Source Blood Pressure Position Blood Pressure Location Pulse Ox 100 99 99 Oxygen Delivery Method Non-Rebreather Non-Rebreather Non-Rebreather Oxygen Flow Rate (L/min) 15 10 10 Fraction of Inspired Oxygen (FIO2) 10/17/24 01:45 10/17/24 02:00 10/17/24 03:00 Temperature 97.8 F 97.9 F Temperature Source Temporal Temporal Pulse Rate 102 H 97 Respiratory Rate 24 H 22 H Respiratory Pattern Blood Pressure 113/65 113/56 L Blood Pressure Mean 81 75 Blood Pressure Source Blood Pressure Position Blood Pressure Location Pulse Ox 99 93 90 Oxygen Delivery Method Non-Rebreather Venturi Mask Venturi Mask Oxygen Flow Rate (L/min) 10 6 6 Fraction of Inspired Oxygen (FIO2) 10/17/24 04:00 10/17/24 05:00 10/17/24 06:00 Temperature 97.8 F 97.9 F 97.9 F Temperature Source Temporal Temporal Oral Pulse Rate 102 H 88 105 H Respiratory Rate 24 H 26 H 24 H Respiratory Pattern Blood Pressure 138/72 H 145/72 H 139/66 H Blood Pressure Mean 94 96 90 Blood Pressure Source Blood Pressure Position Blood Pressure Location Pulse Ox 91 94 93 Oxygen Delivery Method Venturi Mask Venturi Mask Venturi Mask Oxygen Flow Rate (L/min) 6 6 6 Fraction of Inspired Oxygen (FIO2) 10/17/24 07:00 10/17/24 08:01 10/17/24 09:48 Temperature 97.9 F 97.9 F Temperature Source Oral Pulse Rate 90 105 H Respiratory Rate 16 20 H Respiratory Pattern Blood Pressure 144/74 H 136/68 H Blood Pressure Mean 97 90 Blood Pressure Source Blood Pressure Position Blood Pressure Location Pulse Ox 94 94 93 Oxygen Delivery Method Venturi Mask Venturi Mask Oxygen Flow Rate (L/min) 6 4 Fraction of Inspired Oxygen (FIO2) 10/17/24 10:30 10/17/24 11:45 10/17/24 12:07 Temperature 97.9 F Temperature Source Temporal Pulse Rate 95 90 Respiratory Rate 20 H 20 H Respiratory Pattern Blood Pressure 132/72 H Blood Pressure Mean 92 Blood Pressure Source Monitor Blood Pressure Position Semi-Fowlers Blood Pressure Location Right Arm Pulse Ox 96 96 Oxygen Delivery Method Non-Rebreather Simple Mask Venturi Mask Oxygen Flow Rate (L/min) 4 6 4 Fraction of Inspired Oxygen (FIO2) 35 10/17/24 14:01 10/17/24 14:11 Temperature 98.0 F Temperature Source Temporal Pulse Rate 71 66 Respiratory Rate 18 20 H Respiratory Pattern Normal Blood Pressure 132/58 H Blood Pressure Mean 82 Blood Pressure Source Monitor Blood Pressure Position Semi-Fowlers Blood Pressure Location Pulse Ox 95 Oxygen Delivery Method Nasal Cannula Oxygen Flow Rate (L/min) 6 Fraction of Inspired Oxygen (FIO2) Weight Weight: 94.5 kg Body Mass Index (BMI) 0.3 Physical Exam Const alert and no apparent distress Constitutional Narrative: Patient was confused and appeared older than her stated age General Appearance: well kempt and well developed Orientation / Consciousness: awake and confused HEENT normocephalic, head/scalp atraumatic, hearing grossly normal bilaterally and moist oral mucous membranes Eyes PERRL, EOMs intact bilaterally and conjunctivae normal Neck supple, no JVD, thyroid normal and no carotid bruits General: trachea midline Resp normal respiratory effort, no retractions, no use of accessory muscles and clear to auscultation bilaterally Auscultation: Negative for rales, rhonchi or wheezes Cardio regular rate, regular rhythm, S1 normal heart sound, S2 normal heart sound, no murmurs, no rub and no gallops GI normal to inspection, nondistended, normoactive bowel sounds, soft to palpation, non-tender and non-distended Extremity no clubbing, cyanosis or edema Skin no rashes or lesions noted General Skin Exam: no breakdown Neuro CN's II-XII intact bilaterally Neuro Narrative: Patient is confused Sensorium / Orientation: awake and alert Psych Psych Narrative: Patient is confused and restless Results Lab / Micro Data 10/17/24 03:35 10/16/24 20:58 Labs: Laboratory Results - last 24 hr 10/16/24 20:58: WBC 10.9, RBC 3.90 L, Hgb 13.2, Hct 41.1, MCV 105.4 H, MCH 33.8 H, MCHC 32.1, RDW Std Deviation 51.8 H, RDW Coeff of Alexandra 13.3, Plt Count 167, MPV 12.4 H, Immature Gran % (Auto) 0.500, Neut % (Auto) 59.1, Lymph % (Auto) 25.8, Wilson % (Auto) 11.8 H, Eos % (Auto) 2.2, Baso % (Auto) 0.6, Absolute Neuts (auto) 6.4, Absolute Lymphs (auto) 2.81, Nucleated RBC % 0, PT 13.1, INR 1.0, APTT 26.4, Sodium 143, Potassium 4.2, Chloride 108 H, Carbon Dioxide 29.0, Anion Gap 6, BUN 51 H, Creatinine 1.48 H, Estim Creat Clear Calc 42.97, Est GFR (MDRD) Af Amer 43 L, Est GFR (MDRD) Non-Af 36 L, BUN/Creatinine Ratio 34.5 H, Glucose 106, Calcium 10.0, Troponin I High Sens 3, Blood Type O POSITIVE, Antibody Screen NEGATIVE 10/16/24 22:57: Lactic Acid 1.3 10/16/24 23:18: Troponin I High Sens 26 10/17/24 03:35: Hgb 11.4 L, Hct 36.9 L Imaging Radiology Impression Chest CTA 10/16/24 20:46 IMPRESSION: 1. Negative for pulmonary embolism. 2. Mild bibasilar reticular and ground-glass opacities which may relate to fibrosis and/or a chronic infectious/inflammatory process. 3. Emphysema and coronary artery disease. 4. Chronic granulomatous disease. One or more dose reduction techniques were used (e.g., Automated exposure control, adjustment of the mA and/or kV according to patient size, use of iterative reconstruction technique). Reading Location: [facility] Assessment & Plan Assessment/Plan (1) Epistaxis: PLAN: Plan 1. Epistaxis-patient does not appear to be actively bleeding at this time, she was admitted to [place] [address] and will await a bed at [facility] in [place] #2 community-acquired pneumonia-patient will remain on Rocephin and Zithromax #3 dementia with behavioral disturbances-complicates care, management, recovery, and prognosis, patient will be given IV Ativan as needed every 6 hours for agitation #4 hypoxia secondary to #2-patient's pulse ox will be monitored, oxygen will be adjusted as needed #5 essential hypertension-patient will remain on her present medications #6 chronic obstructive pulmonary disease-patient will be given aerosol treatments Total clinical time spent by myself addressing patient's medical issues, reviewing all of her data, and collaborating with patient's care team: 55 minutes Charges/Coding Visit Charges Inpatient E&M: [id number] Init Hosp L2
--- NOTE | 2024-10-23 11:16 | PCM.DC.SUM ---
Providers Date of Admission: 10/17/24 Date of Discharge: 10/17/24 Primary Care Physician: Dr. Jean Claude Gutierrez MD Final diagnosis: #1 epistaxis #2 community-acquired pneumonia #3 dementia with behavioral disturbances #4 hypoxia secondary to #2 #5 essential hypertension #6 chronic obstructive pulmonary disease Reason For Visit: NOSEBLEED, HYPOXIA Diagnosis Discharge Diagnosis (1) Epistaxis: Status: Acute Code(s): R04.0 - Epistaxis Plan 1. Epistaxis-patient does not appear to be actively bleeding at this time, she was admitted to [place] [address] and will await a bed at [facility] in [place] #2 community-acquired pneumonia-patient will remain on Rocephin and Zithromax #3 dementia with behavioral disturbances-complicates care, management, recovery, and prognosis, patient will be given IV Ativan as needed every 6 hours for agitation #4 hypoxia secondary to #2-patient's pulse ox will be monitored, oxygen will be adjusted as needed #5 essential hypertension-patient will remain on her present medications #6 chronic obstructive pulmonary disease-patient will be given aerosol treatments Total clinical time spent by myself addressing patient's medical issues, reviewing all of her data, and collaborating with patient's care team: 55 minutes Medications at Discharge Home Medications simvastatin 20 mg tablet 20 mg PO QHS CHOLESTEROL 10/10/15 latanoprost 0.005 % eye drops 1 drp ophthalmic (eye) QPM GLAUCOMA 01/12/19 nitroglycerin 0.4 mg sublingual tablet 0.4 mg sublingual Q5-15M PRN CHEST PAIN 01/12/19 clobetasol 0.05 % topical cream 1 applic topical BID PSORIASES 06/26/21 brimonidine 0.1 % eye drops 2 drp ophthalmic (eye) DAILY EYE IRRITATION 07/11/21 docusate sodium 100 mg capsule (Colace) 100 mg PO BID PRN CONSTIPATION 10/08/21 calcipotriene 0.005 % topical cream 1 applic topical DAILY PRN PSORIASES 01/22/23 lisinopril 10 mg tablet 20 mg PO BID BLOOD PRESSURE 01/22/23 montelukast 10 mg tablet 10 mg PO DAILY ALLERGIES 01/22/23 netarsudil 0.02 % eye drops (Rhopressa) 1 drp EACH EYE DAILY GLAUCOMA 01/22/23 acetaminophen 500 mg tablet 1,000 mg (2 x 500 mg) PO Q6H PRN PRN Pain Score 1-10 #0 tabs 02/06/23 amlodipine 5 mg tablet 5 mg PO DAILY 30 days #30 tabs 02/06/23 budesonide 160 mcg-glycopyr 9 mcg-formot 4.8 mcg/actuation HFA inhaler (Breztri Aerosphere) 2 inh inhalation DAILY 07/04/23 gabapentin 100 mg capsule 200 mg PO QHS 07/04/23 hydrocodone 7.5 mg-acetaminophen 325 mg tablet 1 tab PO QHS PRN pain 07/04/23 trazodone 50 mg tablet 75 mg PO QHS 07/04/23 benzonatate 100 mg capsule 100 mg PO TID PRN cough 10/13/23 furosemide 40 mg tablet 40 mg PO DAILY 10/13/23 guaifenesin 200 mg tablet (Expectorant) 600 mg PO BID PRN PRN cough 10/13/23 isosorbide mononitrate 60 mg tablet,extended release 24 hr See Rx Instructions .Route .COMPLEX #60 TABLETS 10/28/23 cholecalciferol (vitamin D3) 25 mcg (1,000 unit) capsule 25 mcg PO QDAY 06/21/24 clopidogrel 75 mg tablet See Rx Instructions .Route .COMPLEX #28 TABLETS 08/25/24 carbidopa 25 mg-levodopa 100 mg tablet 2 tab PO TID 10/16/24 sertraline 100 mg tablet 100 mg PO DAILY 10/16/24 Hospital Course Operations None Procedures None Summary of Care Provided Minutes Spent on Discharge: 30 Hospital Course: This 84-year-old white female was seen in the emergency room at [facility] after being brought in from assisted living facility due to a nosebleed. A Rhino [employer]ocket was placed in the emergency room and later the patient was noted to be hypoxic with pulse ox in the mid 70s, nasal cannula was placed in her mouth for oxygenation and suctioning was performed with blood noted in the suction material. Bilateral nasal packing was placed and she was placed on a nonrebreather, labs were obtained which showed normal coags, BUN was 51 and creatinine was 1.48. A chest CTA was done and was negative for pulmonary embolism, there was mild bibasilar reticular and groundglass opacities which may relate to fibrosis and/or chronic infectious or inflammatory process. Patient also had emphysema noted on the CTA. Patient was given IV tranexamic acid, ENT was contacted but they were not on-call and ENT recommended the patient be transferred to a higher care facility for continued management. Due to the fact the patient had been in the emergency room several hours, she was eventually admitted to [place] [address] and given IV antibiotics and monitored. On 10/17/2024, patient was seen and examined: On examination she appeared in good health and spirits, she does not appear to be in any distress. Vital signs as documented. Skin warm and dry and without overt rashes. Neck without JVD, thyroid appears normal, trachea is midline, neck is supple. Lungs clear, normal air movement was noted. Heart exam notable for regular rhythm, normal sounds and absence of murmurs, rubs or gallops. Abdomen unremarkable and without evidence of organomegaly, masses, or abdominal aortic enlargement, bowel sounds are present in all 4 quadrants, no abdominal tenderness was noted. Extremities nonedematous, no cyanosis was noted, no clubbing was noted. Neuro: Cranial nerves II through XII are grossly intact, no focal motor deficits were noted, sensation to light touch and pinprick is intact, motor exam 5/5 throughout. Psych: Patient is alert, patient does not appear agitated Patient was transferred to [facility] in [facility] for further care on 10/17/2024 Weight / BMI Weight Weight: 94.5 kg Body Mass Index (BMI) 0.3 ABG / Lab / Microbiology Data 10/17/24 03:35 10/16/24 20:58 Microbiology: Microbiology 10/16/24 22:57 Blood Culture (Wb) - Right Hand Blood Culture - Final No growth in 5 days. 10/16/24 23:18 Blood Culture (Wb) - Right Hand Blood Culture - Final No growth in 5 days. D/C Instructions DC O2, CPAP, BIPAP Needs PSN CPAP & BiPAP: BiPAP & CPAP Settings per PSN Fraction of Inspired Oxygen ( 35 10/17/24 11:45 FIO2) Home O2 Discharge instructions: No Meaningful Use Info Meaningful Use Meaningful Use Diagnoses (Choose all that apply): None applicable Ischemic Stroke Statin Dosing Therapy Reference: STATIN DOSE THERAPY REFERENCE: * Patients > 75 years receive moderate or high dose statin therapy. * Patients 75 years or YOUNGER should receive HIGH intensity statin dose unless contraindicated. You will be required to document reason for non-treatment if statin daily dose does not meet guidelines. HIGH DOSE STATIN THERAPY DAILY Atorvastatin > than or = to 40 mg Rosuvastatin > than or = to 20 mg Amlodipine + Atorvastatin > than or = to 2.5/40 mg Ezetimibe + Simvastatin 10/80 mg Simvastatin 80mg Discharge Plan Admission Admit Date/Time: 10/17/24 09:14 Attending Provider: Art Cordero Primary Care Provider: Jean Claude Gutierrez Discharge Orders/Prescriptions Prescriptions: No Action latanoprost 0.005 % drops 1 drp OPHTHALMIC QPM nitroglycerin 0.4 mg tablet, sublingual 0.4 mg SUBLINGUAL Q5-15M PRN (Reason: CHEST PAIN ) docusate sodium [Colace] 100 mg capsule 100 mg PO BID PRN (Reason: CONSTIPATION ) brimonidine 0.1 % drops 2 drp ophthalmic (eye) DAILY clobetasol 0.05 % cream 1 applic topical BID cholecalciferol (vitamin D3) 25 mcg (1,000 unit) capsule 25 mcg PO QDAY simvastatin 20 MG tablet 20 mg PO QHS calcipotriene 0.005 % Cream 1 applic TOPICAL DAILY PRN (Reason: PSORIASES) Rx Instructions: rub in gently and completely lisinopril 10 mg Tablet 20 mg PO BID montelukast 10 mg tablet 10 mg PO DAILY Rhopressa 0.02 % Drops 1 drp EACH EYE DAILY acetaminophen 500 mg Tablet 1,000 mg PO Q6H PRN PRN (Reason: Pain Score 1-10) Qty: 0 0RF amlodipine 5 mg Tablet 5 mg PO DAILY 30 Days Qty: 30 0RF trazodone 50 mg tablet 75 mg PO QHS hydrocodone-acetaminophen 7.5-325 mg tablet 1 tab PO QHS PRN (Reason: pain) Breztri Aerosphere 160-9-4.8 mcg/actuation HFA aerosol inhaler 2 inh INHALATION DAILY gabapentin 100 mg Capsule 200 mg PO QHS benzonatate 100 mg capsule 100 mg PO TID PRN (Reason: cough) guaifenesin [Expectorant] 200 mg tablet 600 mg PO BID PRN PRN (Reason: cough) furosemide 40 mg tablet 40 mg PO DAILY carbidopa-levodopa 25-100 mg tablet 2 tab PO TID Patient Comments: [NO ORIGINAL SIG] sertraline 100 mg tablet 100 mg PO DAILY isosorbide mononitrate 60 mg tablet extended release 24 hr See Rx Instructions .ROUTE .COMPLEX Qty: 60 11RF Dose Instruction: TAKE 1 TABLET BY MOUTH TWICE A DAY Rx Instructions: TAKE 1 TABLET BY MOUTH TWICE A DAY clopidogrel 75 mg tablet See Rx Instructions .ROUTE .COMPLEX Qty: 28 11RF Dose Instruction: TAKE 1 TABLET BY MOUTH DAILY Rx Instructions: TAKE 1 TABLET BY MOUTH DAILY Referrals / Follow Up: Jean Claude Gutierrez MD [Primary Care Provider] - Disposition Disposition (needs filled in before D/C Order can be placed): Acute Care Hospital Charges/Coding Visit Charges Inpatient E&M: 98156 Disch Hosp
== END 2024-10-17 16:20 | disposition short-term general hospital (02) | DRG 150 ==
LOC: ED 10-17 05:56 → MS3 10-17 09:24
PROVIDERS: Emergency Medicine; Admitting Provider Internal Medicine; Emergency Provider Emergency Medicine; PCP Family Medicine; Visit Provider Internal Medicine
DX: R04.0 Epistaxis (principal); J18.9 Pneumonia, unspecified organism; D68.32 Hemorrhagic disorder due to extrinsic circulating anticoagulants; F03.911 Unspecified dementia, unspecified severity, with agitation; D62 Acute posthemorrhagic anemia; I50.22 Chronic systolic (congestive) heart failure; I13.0 Hypertensive heart and chronic kidney disease with heart failure and stage 1 through stage 4 chronic kidney disease, or unspecified chronic kidney disease; Z66 Do not resuscitate; J43.9 Emphysema, unspecified; F34.1 Dysthymic disorder; N18.9 Chronic kidney disease, unspecified; I25.10 Atherosclerotic heart disease of native coronary artery without angina pectoris; E78.00 Pure hypercholesterolemia, unspecified; Z87.891 Personal history of nicotine dependence; R06.03 Acute respiratory distress; Z79.02 Long term (current) use of antithrombotics/antiplatelets; Z79.899 Other long term (current) drug therapy; R09.02 Hypoxemia
CPT/HCPCS: 71275; 80048; 83605; 84484; 85014; 85018; 85025; 85610; 85730; 86850; 86900; 86901; 87040; 93005; 94640; 96365; 96366; 96367; 96375; 99285; Q9967; A4216; J0696

== ENCOUNTER 2024-11-07 08:56 | Inpatient (IN) | payer MEDICARE, SELFPAY ==
[2024-11-07] VITALS (12 sets, daily range): BP systolic 103–127; BP diastolic 37–80; PULSE 58–76; RESP 16–24; TEMP 36.6–36.7; O2SAT 92–100; BMI 31.7; BMI 36.4
--- NOTE | 2024-11-07 09:20 | EKG12_ITS ---
Test Reason : SOB Blood Pressure : */* mmHG Vent. Rate : 61 BPM Atrial Rate : * BPM P-R Int : * ms QRS Dur : 108 ms QT Int : 430 ms P-R-T Axes : * 7 -22 degrees QTcB Int : 432 ms Atrial fibrillation Cannot rule out Inferior infarct , age undetermined Abnormal ECG Confirmed by TARIQ PAYNE, LIZA ([id number]), technical editor ANYI BAILEY ([id number]) on 11/09/2024 12:56:46 PM Referred By: Apollo Dinh Confirmed By: LIZA POTTER MD
[2024-11-07 09:44] LABS: Absolute Lymphocyte Count 0.87 X10^3/uL (0.83-4.51); Absolute Neutrophil Count 17.4 X10^3/uL (2.0-7.7); Basophil# 0.04 X10^3/uL; Basophil% 0.2 % (0-1); Eosinophil# 0.13 X10^3/uL; Eosinophils% 0.6 % (0-5); Hematocrit 28.4 % (37-47); Lymphocyte # 0.87 X10^3/ul (0.83-4.51); Lymphocyte % 4.3 % (19-41); Mean Corp Hgb Conc 31.7 g/dL (32-36); Mean Corpuscular Volume 97.9 fL (81-99); Monocyte# 1.19 X10^3/uL; Monocyte% 5.9 % (0-10); NRBC Flagged by Analyzer 0.5 % (0-5); Neutrophil # 17.41 X10^3/uL (2.7-7.7); Neutrophil % 86.2 % (47-70); Platelet Count 195 K/mm3 (150-450); RBC Distribution Width SD 50.1 fl (35.1-43.9); White Blood Count 20.2 K/mm3 (4.4-11.0)
--- NOTE | 2024-11-07 09:45 | RAD_ITS ---
PROCEDURE: CHEST PA AND LATERAL (RADCXR), 11/07/2024 REASON FOR EXAM: COUGH TECHNIQUE: PA and lateral views of the chest were obtained. COMPARISON: 10/16/2024 FINDINGS: Heart: Partially obscured, grossly similar. Mediastinum: Atherosclerosis. Sternotomy with similar fracture of multiple sternal wires. Lungs/pleura: Similar chronic mild interstitial prominence. Increasing ill- defined opacity in the left lung base. No definite effusion or visible pneumothorax. Bones: Multilevel spondylosis. Suspect demineralization.. Lines and support devices: RAD/Chest PA and Lateral IMPRESSION: 1. Ill-defined opacity in the left lung base compatible with atelectasis versus pneumonia. Follow-up to radiographic resolution recommended. 2. Additional description as above. Reading Location: [id number]
[2024-11-07 10:27] LABS: Pro- Brain NATRIURETIC PEPTIDE 17035 pg/mL (<=1800)
--- NOTE | 2024-11-07 10:27 | ED.VIS.DYS ---
HPI History of Present Illness Chief Complaint: Cough Informant: patient and family Limited: dementia Narrative Narrative: Patient is an 84-year-old female with history of CHF, COPD, coronary artery disease, pulmonary emboli, dementia and recent hospitalization for pneumonia as well as epistaxis which was ultimately transferred to [facility]. She is in assisted living. As she is presenting from assisted living for concern of worsening wet cough and low blood pressure. Patient was discharged from [facility] in 2 L of oxygen but has been back on room air last week. Over the weekend she had worsening respiratory symptoms again and was placed back on supplemental oxygen. She had a chest x-ray on Thursday per her granddaughter (3 days ago) which showed she still had pneumonia was put on antibiotics. This morning she was noted to either have low blood pressure or low oxygen and was sent to the ER. No report of any fevers. Family notes that her coughing seems more wet and she has a rattle in her chest when she is breathing. Patient herself has no complaints and but is a poor historian. Per cardiology note on 10/24/2024 appears that patient did test positive for COVID-[address] [facility]. Her proBNP was 22,915 and echocardiogram showed EF of 44% with moderate mitral valve regurgitation and R VSP of 30 mmHg. Hemoglobin at that time was 9.5. [facility] Medical History DNR (do not resuscitate) Hypoxia Pneumonia Epistaxis Congestive heart failure (CHF) COVID-19 COPD (chronic obstructive pulmonary disease) Acute respiratory failure with hypoxia COVID HFrEF (heart failure with reduced ejection fraction) Insomnia Depression Coronary artery disease Hyperlipidemia Acute UTI Weakness Wears glasses Wears dentures Post-menopausal Forgetfulness Depression Anxiety Lichen sclerosus Walker as ambulation aid Ambulates with cane Arthritis History of renal disease Low iron Pulmonary embolism DVT (deep venous thrombosis) Restless legs History of diverticulitis Shortness of breath on exertion Emphysema, unspecified COPD (chronic obstructive pulmonary disease) History of edema History of stress test History of echocardiogram Hypertension History of heart attack Chest pain Hx of intestinal obstruction History of left heart catheterization (LHC) (~11/05/21) Fatigue Angina pectoris Lung nodule Atherosclerotic heart disease of [place] coronary artery without angina pectoris Pure hypercholesterolemia Gout Essential hypertension Rectocele Anemia Constipation Diarrhea Asthma SOB (shortness of breath) Hx TIA/stroke w/o resid PVD (peripheral vascular disease) Other pulmonary embolism and infarction Osteoporosis Myalgia Lichen sclerosus Glaucoma Dysthymic disorder Dysplasia of cervix, unspecified Diverticulosis CKD (chronic kidney disease) stage 3, GFR 30-59 ml/min Scleroderma History of dermatomyositis Home Medications ?Medication ?Instructions ?Recorded ?Last Taken ?Type simvastatin 20 mg tablet 20 mg PO QHS CHOLESTEROL 10/10/15 07/03/23 History latanoprost 0.005 % eye drops 1 drp ophthalmic (eye) QPM GLAUCOMA 01/12/19 07/03/23 History nitroglycerin 0.4 mg sublingual 0.4 mg sublingual Q5-15M PRN CHEST 01/12/19 Unknown History tablet PAIN clobetasol 0.05 % topical cream 1 applic topical BID PSORIASES 06/26/21 Unknown History brimonidine 0.1 % eye drops 2 drp ophthalmic (eye) DAILY EYE 07/11/21 07/03/23 History IRRITATION calcipotriene 0.005 % topical cream 1 applic topical DAILY PRN 01/22/23 Unknown History PSORIASES montelukast 10 mg tablet 10 mg PO DAILY ALLERGIES 01/22/23 07/04/23 History netarsudil 0.02 % eye drops 1 drp EACH EYE DAILY GLAUCOMA 01/22/23 07/03/23 History (Rhopressa) acetaminophen 500 mg tablet 1,000 mg (2 x 500 mg) PO Q6H PRN 02/06/23 Unknown Rx PRN Pain Score 1-10 #0 tabs amlodipine 5 mg tablet 5 mg PO DAILY 30 days #30 tabs 02/06/23 07/04/23 Rx budesonide 160 mcg-glycopyr 9 2 inh inhalation DAILY 07/04/23 07/04/23 History mcg-formot 4.8 mcg/actuation HFA inhaler (Breztri Aerosphere) gabapentin 100 mg capsule 200 mg PO QHS 07/04/23 07/03/23 History trazodone 50 mg tablet 75 mg PO QHS 07/04/23 07/03/23 History benzonatate 100 mg capsule 100 mg PO TID PRN cough 10/13/23 Unknown History furosemide 40 mg tablet 40 mg PO DAILY 10/13/23 Unknown History isosorbide mononitrate 60 mg See Rx Instructions .Route 10/28/23 Unknown Rx tablet,extended release 24 hr .COMPLEX #60 TABLETS cholecalciferol (vitamin D3) 25 25 mcg PO QDAY 06/21/24 Unknown History mcg (1,000 unit) capsule carbidopa 25 mg-levodopa 100 mg 2 tab PO TID 10/16/24 Unknown History tablet sertraline 100 mg tablet 100 mg PO DAILY 10/16/24 Unknown History albuterol sulfate 90 mcg/actuation 2 puff inhalation Q8H PRN 10/24/24 Unknown History aerosol inhaler (Ventolin HFA) shortness of breath or wheezing aspirin 81 mg tablet,delayed 81 mg PO QDAY #90 tabs 10/24/24 Unknown Rx release (Adult Aspirin Regimen) bisacodyl 10 mg rectal suppository 10 mg [place] QDAY PRN constipation 10/24/24 Unknown History cyanocobalamin (vitamin B-12) 100 100 mcg PO QDAY 10/24/24 Unknown History mcg tablet diphenhydramine HCl 25 mg tablet 12.5 mg PO DAILY PRN allergy 10/24/24 Unknown History symptoms docusate sodium 100 mg capsule 100 mg PO BID CONSTIPATION 10/24/24 Unknown History (Colace) ferrous sulfate 325 mg (65 mg 325 mg PO QDAY 10/24/24 Unknown History iron) tablet guaifenesin 600 mg tablet, 600 mg PO BID 10/24/24 Unknown History extended release 12 hr hydrocodone 7.5 mg-acetaminophen 1 tab PO .COMPLEX PRN pain 10/24/24 Unknown History 325 mg tablet lisinopril 20 mg tablet 20 mg PO BID HTN 10/24/24 Unknown History loperamide 2 mg tablet 2 mg PO ONCE PRN loose stool 10/24/24 Unknown History magnesium hydroxide 400 mg/5 mL 30 ml PO QDAY PRN constipation 10/24/24 Unknown History oral suspension (Milk of Magnesia) polyethylene glycol 3350 17 17 g PO QDAY 10/24/24 Unknown History gram/dose oral powder propylene glycol 0.6 % eye drops 1 drp ophthalmic (eye) BID-QID PRN 10/24/24 Unknown History (Systane Complete) dry eye(s) artificial 1 drp EACH EYE PRN 11/07/24 Unknown History tears(cnjpeac-lwlpvzqp-fvjeytc) 0.1 %-0.3 %-0.2 % eye drops ceftriaxone 1 gram solution for 1 g IM DAILY 11/07/24 Unknown History injection ondansetron HCl 4 mg tablet 4 mg PO Q6H 11/07/24 Unknown History Allergy/AdvReac Type Severity Reaction Status Date / Time metoprolol tartrate (From Allergy Unknown Verified 10/24/24 11:28 Lopressor) shellfish derived Allergy Anaphylaxis Verified 10/24/24 11:28 Sulfa (Sulfonamide Allergy Rash Verified 10/24/24 11:28 Antibiotics) Family History Father Heart disease Myocardial infarction Surgical History History of cholecystectomy History of coronary artery bypass surgery (~08/10/00) Hx of colonoscopy History of total right knee replacement History of left knee replacement History of intraocular lens implant Hx of heart bypass surgery Social History household members: spouse Smoking Status: Former smoker second hand exposure: Yes alcohol intake: never substance use type: does not use caffeine: Yes what type of physical activity do you participate in: none frequency: does not exercise ROS ROS ED Review of Systems ROS Unobtainable: due to mental status Constitutional Constitutional ED: Denies chills or fever(s) Cardiovascular Cardiovascular: Denies chest pain Respiratory/Chest Respiratory/Chest: Reports cough; Denies dyspnea EXAM Physical Exam Const Vital Signs: 11/07/24 08:57 11/07/24 09:01 11/07/24 09:20 Temperature 97.8 F 97.8 F Temperature Source Oral Oral Pulse Rate 74 76 Respiratory Rate 16 18 Respiratory Effort Blood Pressure 114/50 L 114/50 L Blood Pressure Mean 71 71 Pulse Ox 93 93 92 Oxygen Delivery Method Nasal Cannula Nasal Cannula Nasal Cannula Oxygen Flow Rate (L/min) 2 2 2 11/07/24 10:00 11/07/24 11:00 11/07/24 12:00 Temperature 97.8 F 98.0 F Temperature Source Oral Oral Pulse Rate 64 59 L Respiratory Rate 24 H 18 Respiratory Effort Short of Breath Blood Pressure 104/37 L 103/44 L Blood Pressure Mean 59 63 Pulse Ox 96 97 Oxygen Delivery Method Nasal Cannula Nasal Cannula Nasal Cannula Oxygen Flow Rate (L/min) 3 3 4 Positive well nourished and well developed General Appearance ED: well developed HEENT Reports moist mucous membranes Neck supple and no JVD Resp normal respiratory effort Resp Narrative: Significantly diminished breath sounds left lower lung. Crackles appreciated the left upper lung. No wheezing appreciated. Normal right breath sounds. Cardio regular rate and regular rhythm GI non-tender and non-distended Extremity normal to inspection Neuro Sensorium / Orientation: alert and oriented to person Motor Exam: general weakness Psych mental status grossly normal Skin no wounds MDM MDM MDM Narrative Medical decision making narrative: Outside records show that patient is currently on Rocephin 1 mg IM for 3 days of started on 11/05. Patient evaluated for cause of her respiratory symptoms including pneumonia, PE, ACS, pleural effusion and heart failure exacerbation. Is on 2 to 4 L of oxygen in the emergency room. Was actually pretty well-appearing. EKG does show what appears to be new onset atrial flutter. CBC shows a significant leukocytosis of 20.2. Hemoglobin stable at 9.0. She does have a left shift and this more concerning for acute infectious process. Chest x-ray reviewed by myself as well as radiology does show a left-sided infiltrate. Will obtain CT of the chest without contrast (patient has LANDON on CKD) for further evaluation of this. Her D-dimer is significantly elevated but given leukocytosis and imaging findings suspect this is more from infection and lower suspicion for acute PE at this time. Will hold off on CTA at this time given her renal function. Discussed with hospitalist if he would like me to start the patient on any type of anticoagulation (weight-based Lovenox or heparin especially given her new onset atrial flutter but he will decide at admission time. Patient does have an elevation of her proBNP however it actually seems to be downtrending his chart review shows before it was 22,000. Her COVID flu RSV is now negative. High sensitive troponin is elevated at 133 suspect this is more strain related. Will continue to monitor but this is downtrending in the emergency room. Patient started on broad-spectrum antibiotics of Zosyn. Initiate oral vancomycin but after discussion with hospitalist given her LANDON low suspicion for MRSA he would like me to cancel the vancomycin. CT of the chest was still pending at time of disposition on my interpretation showed infiltrate. At time of completing the notes it does show new irregular nodular and masslike consolidation of the left lower lobe measuring 6 cm. This is compatible with infectious/inflammatory process such as pneumonia. Does recommend monitoring for resolution. This is consistent with her clinical picture. Blood cultures were obtained prior to receiving IV antibiotics. Patient be admitted for further infectious treatment as well as cardiac evaluation. Case discussed with hospitalist?Dr. Dinh History & Record Review Additional record(s) reviewed:: Prior outpatient record (See HPI) Lab Data Attestation: I reviewed the patient's lab results. Labs: Laboratory Results - last 24 hr 11/07/24 11/07/24 11/07/24 09:30 09:51 10:20 WBC 20.2 H RBC 2.90 L Hgb 9.0 L Hct 28.4 L MCV 97.9 MCH 31.0 MCHC 31.7 L RDW Std Deviation 50.1 H RDW Coeff of Alexandra 16.0 H Plt Count 195 Immature Gran % (Auto) 2.800 H Neut % (Auto) 86.2 H Lymph % (Auto) 4.3 L Mckenzie % (Auto) 5.9 Eos % (Auto) 0.6 Baso % (Auto) 0.2 Absolute Neuts (auto) 17.4 H Absolute Lymphs (auto) 0.87 Nucleated RBC % 0.5 PT Cancelled Cancelled INR Cancelled Cancelled APTT Cancelled Cancelled D-Dimer Quant (PE/DVT) Cancelled Cancelled Sodium 139 Potassium 3.4 Chloride 99 Carbon Dioxide 23.3 Anion Gap 16 H BUN 76 H Creatinine 2.67 H Estim Creat Clear Calc 17.34 L Est GFR (MDRD) Non-Af 17 L BUN/Creatinine Ratio 28.5 H Glucose 109 H Lactic Acid Calcium 9.5 Magnesium 2.4 H Total Bilirubin Direct Bilirubin AST ALT Alkaline Phosphatase Total Creatine Kinase Troponin T High Sens 133 H* Troponin T [place] 2 [place] [address] H Total Protein Albumin Globulin TSH 2.010 11/07/24 11/07/24 11/07/24 10:50 11:13 11:20 WBC RBC Hgb Hct MCV MCH MCHC RDW Std Deviation RDW Coeff of Alexandra Plt Count Immature Gran % (Auto) Neut % (Auto) Lymph % (Auto) Mckenzie % (Auto) Eos % (Auto) Baso % (Auto) Absolute Neuts (auto) Absolute Lymphs (auto) Nucleated RBC % PT 14.0 INR 1.1 APTT 30.6 D-Dimer Quant (PE/DVT) 2.80 H* Sodium Potassium Chloride Carbon Dioxide Anion Gap BUN Creatinine Estim Creat Clear Calc Est GFR (MDRD) Non-Af BUN/Creatinine Ratio Glucose Lactic Acid 1.7 Calcium Magnesium Total Bilirubin 0.32 Direct Bilirubin 0.21 AST 19 ALT < 5 Alkaline Phosphatase 71 Total Creatine Kinase 94 Troponin T High Sens Troponin T Hi Sens 2 Hr 122 H* NT pro BNP II Total Protein 6.3 Albumin 3.4 Globulin 2.9 TSH Radiography Diagnostic Testing: Clinical Impression(s) from Imaging Studies Chest X-Ray 11/07/24 09:45 IMPRESSION: 1. Ill-defined opacity in the left lung base compatible with atelectasis versus pneumonia. Follow-up to radiographic resolution recommended. 2. Additional description as above. Reading Location: [facility] Chest CT 11/07/24 10:57 IMPRESSION: 1. New irregular nodular and masslike consolidation in the left lower lobe with largest masslike area measuring 6.0 cm compared with recent CT 10/16/2024. Findings are most compatible with an infectious/inflammatory process such as pneumonia. Notably there are nonspecific morphologic features which can be seen in the setting of atypical organizing pneumonia. Consider pulmonology consultation and recommend follow-up CT in 3 months to ensure stability or resolution of these findings. 2. Indeterminate 1.4 cm left adrenal nodule is unchanged from 04/21/2023, suggesting a benign/indolent etiology. If there is no history of malignancy, consider follow-up adrenal protocol CT in 12 months per ACR recommendations to complete 2 years of surveillance. If there is history of known malignancy, this should be performed more expeditiously on an outpatient basis. 3. Additional description as above. Reading Location: [id number] Rhythm Strip Rhythm Strip: A-fib Rate: 61 Ectopy: None EKG Initial EKG: Attestation: I personally reviewed and interpreted this EKG as follows: Interpretation: Atrial Flutter Comments: Atrial flutter with variable conduction at a rate of 61 bpm Normal axis Normal QRS Normal ST segments Prior EKG tracings: available for review Prior: Changed Management Discussion w/another healthcare provider: Hospitalist Discharge Plan Dx/Rx/DC Orders Clinical Impression: Pneumonia, Anemia, Sepsis, Leukocytosis, Atrial flutter, Acute on chronic renal insufficiency Disposition Disposition: Acute Care Hospital [facility] Discharge Date/Time: 11/07/24 12:57
[2024-11-07 10:32] LABS: Anion Gap 16 (5-15); Calcium,Total 9.5 mg/dL (7.6-11.0); Carbon Dioxide 23.3 mmol/L (21.0-32.0); Chloride 99 mmol/L (98-108); Creatinine, Serum 2.67 mg/dL (0.70-1.20); EST Glomerular Filtration Rate 17 (>60); Estimated Creatinine Clearance 17.34 ml/min (50-250); Glucose 109 mg/dL (70-99); Potassium 3.4 mmol/L (3.3-5.1); Sodium Level 139 mmol/L (133-145)
--- NOTE | 2024-11-07 10:42 | ED.RN ---
This RN called [facility] to obtain more information on patient per Dr. Velazquez's request. [facility] nurse stated that the patient had increased confusion and SOB this AM. Patient was originally in the low 80s spO2 on 2L NC and nurse at facility increased her to 4L NC increasing spO2 to 86%. Manual BP was 104/54 and lungs sounded awful with lower lobes diminished. Nurse states patient has received 2 doses of IM Rocephin.
--- NOTE | 2024-11-07 10:44 | ED.RN ---
Dr. Velazquez notified of information obtained from [place].
--- NOTE | 2024-11-07 10:57 | CT_ITS ---
PROCEDURE: CHEST WITHOUT CONTRAST 11/07/2024 REASON FOR EXAM: ABNORMAL CHEST X RAY TECHNIQUE: CT chest was performed without IV contrast. Multiplanar reformats were generated. One or more dose reduction techniques were used (e.g., Automated exposure control, adjustment of the mA and/or kV according to patient size, use of iterative reconstruction technique). COMPARISON: Radiographs of same date and prior. RADIATION DOSE SUMMARY: CTDlvol: 17.13 mGy DLP: 552.30 mGycm FINDINGS: Note that evaluation of the vasculature, iliana, and soft tissues is limited in the absence of IV contrast. Heart/pericardium: Advanced three-vessel coronary atherosclerosis and/or stents post sternotomy. Mitral and aortic annular calcification.. Aorta: Moderate atherosclerosis. Pulmonary arteries: Normal in caliber. Lymph nodes: Chronic granulomatous disease. Lungs/pleura: Mild emphysema. Slight elevation of the left hemidiaphragm. Irregular airspace disease with mild adjacent ground-glass in the left lower lobe corresponding to the radiographic finding, new from 10/16/2024. Suggestion of mass or masslike consolidation within subpleural left lower lobe measuring 6.0 x 3.3 x 3.8 cm. Additional nodules and nodular consolidation are new from prior, up to 11 mm in the left lower lobe (series 2, image 51). Few areas demonstrating an atoll sign with peripheral consolidation and central aeration. Suspect a trace left pleural effusion poorly delineated in the absence of IV contrast. Mild right basilar airspace disease compatible with atelectasis/scarring. Granulomas. Airways: Calcifications of the tracheobronchial tree.. Chest wall: Unremarkable. Upper abdomen: Hepatic and splenic granulomas. Mild debris within the thoracic esophagus. Tiny hiatal hernia containing mostly fat. Indeterminate 1.4 cm left adrenal nodule is unchanged from 04/21/2023. Musculoskeletal: Demineralization. Multilevel spondylosis. Redemonstrated fractured sternal wires. Degenerative changes of the shoulders. Small bilateral C7 cervical ribs. CT/Chest without Contrast IMPRESSION: 1. New irregular nodular and masslike consolidation in the left lower lobe with largest masslike area measuring 6.0 cm compared with recent CT 10/16/2024. Findings are most compatible with an infectious/inf lammatory process such as pneumonia. Notably there are nonspecific morphologic features which can be seen in the setting of atypical organizing pneumonia. Consider pulmonology consultation and recommend follow-up CT in 3 months to ensure stabi lity or resolution of these findings. 2. Indeterminate 1.4 cm left adrenal nodule is unchanged from 04/21/2023, sugge sting a benign/indolent etiology. If there is no history of malignancy, consider follow-up adrenal protocol CT in 12 months per ACR recommendations to complete 2 years of surveillance. If there is history of known malignancy, this should be performe d more expeditiously on an outpatient basis. 3. Additional description as above. Reading Location: [id number]
[2024-11-07 11:18] LABS: Troponin T High Sensitivity 133 ng/L (<=14)
--- NOTE | 2024-11-07 11:18 | ED.RN ---
Dr. Velazquez notified of patient MAP of 54. VO for 1L NS instead of 500 bag
[2024-11-07] MEDS: 0.9% Normal Saline (1000mL) 1,000 ML 999 ML IV (11:19)
[2024-11-07 11:28] LABS: Magnesium 2.4 mg/dL (1.5-2.2)
[2024-11-07 11:44] LABS: International Normalized Ratio 1.1
[2024-11-07 11:45] LABS: Partial Thromboplast Time 30.6 Seconds (24.1-36.2)
[2024-11-07 11:51] LABS: Lactic Acid 1.7 mmol/L (0.0-2.0)
[2024-11-07 11:56] LABS: Troponin T High Sens 2 HR 122 ng/L (<=14)
--- NOTE | 2024-11-07 11:58 | ED.RN ---
Critical Troponin of [address] Velazquez notified
[2024-11-07 12:04] LABS: BUN 76 mg/dL (4-19); BUN/Creat Ratio 28.5 RATIO (10-20)
--- NOTE | 2024-11-07 12:15 | PCM.HP.STD ---
HPI - General General Date of Admission: 11/07/24 Date of Service: 11/07/24 Chief Complaint: Shortness of breath, hypoxia worsening for 2 to 3 days. Cough for about 2-3 weeks HPI Narrative TALIA BURT, is a 84 F was brought to ED with hypoxia, low pulse ox and low BP, 99/35 at [facility] Patient was also tachypneic, heart rate 100/min. She was discharged 2 weeks ago with oxygen as needed to do physical therapy but for last 2 to 3 days she has been using oxygen 16/03 about 2-3 L/min but today 3 to 4 L.. Patient also has productive cough for which daughter stated she never get rid of since her last discharge. In ED, her vitals were 114/50, heart rate 74/min on 2 L of oxygen, short of breath and tachypneic. She has not used any ED and was given IV antibiotic Zosyn. Twelve-lead EKG shows A-fib at 61 bpm. She follows in [facility] last seen in October 2024 did not mention about A-fib but her daughter stated she had A-fib in the past. Chest CT ordered and patient further admitted in PCU [facility] Medical History DNR (do not resuscitate) Hypoxia Pneumonia Epistaxis Congestive heart failure (CHF) COVID-19 COPD (chronic obstructive pulmonary disease) Acute respiratory failure with hypoxia COVID HFrEF (heart failure with reduced ejection fraction) Insomnia Depression Coronary artery disease Hyperlipidemia Acute UTI Weakness Wears glasses Wears dentures Post-menopausal Forgetfulness Depression Anxiety Lichen sclerosus Walker as ambulation aid Ambulates with cane Arthritis History of renal disease Low iron Pulmonary embolism DVT (deep venous thrombosis) Restless legs History of diverticulitis Shortness of breath on exertion Emphysema, unspecified COPD (chronic obstructive pulmonary disease) History of edema History of stress test History of echocardiogram Hypertension History of heart attack Chest pain Hx of intestinal obstruction History of left heart catheterization (LHC) (~11/05/21) Fatigue Angina pectoris Lung nodule Atherosclerotic heart disease of [place] coronary artery without angina pectoris Pure hypercholesterolemia Gout Essential hypertension Rectocele Anemia Constipation Diarrhea Asthma SOB (shortness of breath) Hx TIA/stroke w/o resid PVD (peripheral vascular disease) Other pulmonary embolism and infarction Osteoporosis Myalgia Lichen sclerosus Glaucoma Dysthymic disorder Dysplasia of cervix, unspecified Diverticulosis CKD (chronic kidney disease) stage 3, GFR 30-59 ml/min Scleroderma History of dermatomyositis Home Medications ?Medication ?Instructions ?Recorded ?Last Taken ?Type simvastatin 20 mg tablet 20 mg PO QHS CHOLESTEROL 10/10/15 07/03/23 History latanoprost 0.005 % eye drops 1 drp ophthalmic (eye) QPM GLAUCOMA 01/12/19 07/03/23 History nitroglycerin 0.4 mg sublingual 0.4 mg sublingual Q5-15M PRN CHEST 01/12/19 Unknown History tablet PAIN clobetasol 0.05 % topical cream 1 applic topical BID PSORIASES 06/26/21 Unknown History brimonidine 0.1 % eye drops 2 drp ophthalmic (eye) DAILY EYE 07/11/21 07/03/23 History IRRITATION calcipotriene 0.005 % topical cream 1 applic topical DAILY PRN 01/22/23 Unknown History PSORIASES montelukast 10 mg tablet 10 mg PO DAILY ALLERGIES 01/22/23 07/04/23 History netarsudil 0.02 % eye drops 1 drp EACH EYE DAILY GLAUCOMA 01/22/23 07/03/23 History (Rhopressa) acetaminophen 500 mg tablet 1,000 mg (2 x 500 mg) PO Q6H PRN 02/06/23 Unknown Rx PRN Pain Score 1-10 #0 tabs amlodipine 5 mg tablet 5 mg PO DAILY 30 days #30 tabs 02/06/23 07/04/23 Rx budesonide 160 mcg-glycopyr 9 2 inh inhalation DAILY 07/04/23 07/04/23 History mcg-formot 4.8 mcg/actuation HFA inhaler (Breztri Aerosphere) gabapentin 100 mg capsule 200 mg PO QHS 07/04/23 07/03/23 History trazodone 50 mg tablet 75 mg PO QHS 07/04/23 07/03/23 History benzonatate 100 mg capsule 100 mg PO TID PRN cough 10/13/23 Unknown History furosemide 40 mg tablet 40 mg PO DAILY 10/13/23 Unknown History isosorbide mononitrate 60 mg See Rx Instructions .Route 10/28/23 Unknown Rx tablet,extended release 24 hr .COMPLEX #60 TABLETS cholecalciferol (vitamin D3) 25 25 mcg PO QDAY 06/21/24 Unknown History mcg (1,000 unit) capsule carbidopa 25 mg-levodopa 100 mg 2 tab PO TID 10/16/24 Unknown History tablet sertraline 100 mg tablet 100 mg PO DAILY 10/16/24 Unknown History albuterol sulfate 90 mcg/actuation 2 puff inhalation Q8H PRN 10/24/24 Unknown History aerosol inhaler (Ventolin HFA) shortness of breath or wheezing aspirin 81 mg tablet,delayed 81 mg PO QDAY #90 tabs 10/24/24 Unknown Rx release (Adult Aspirin Regimen) bisacodyl 10 mg rectal suppository 10 mg WI QDAY PRN constipation 10/24/24 Unknown History cyanocobalamin (vitamin B-12) 100 100 mcg PO QDAY 10/24/24 Unknown History mcg tablet diphenhydramine HCl 25 mg tablet 12.5 mg PO DAILY PRN allergy 10/24/24 Unknown History symptoms docusate sodium 100 mg capsule 100 mg PO BID CONSTIPATION 10/24/24 Unknown History (Colace) ferrous sulfate 325 mg (65 mg 325 mg PO QDAY 10/24/24 Unknown History iron) tablet guaifenesin 600 mg tablet, 600 mg PO BID 10/24/24 Unknown History extended release 12 hr hydrocodone 7.5 mg-acetaminophen 1 tab PO .COMPLEX PRN pain 10/24/24 Unknown History 325 mg tablet lisinopril 20 mg tablet 20 mg PO BID HTN 10/24/24 Unknown History loperamide 2 mg tablet 2 mg PO ONCE PRN loose stool 10/24/24 Unknown History magnesium hydroxide 400 mg/5 mL 30 ml PO QDAY PRN constipation 10/24/24 Unknown History oral suspension (Milk of Magnesia) polyethylene glycol 3350 17 17 g PO QDAY 10/24/24 Unknown History gram/dose oral powder propylene glycol 0.6 % eye drops 1 drp ophthalmic (eye) BID-QID PRN 10/24/24 Unknown History (Systane Complete) dry eye(s) artificial 1 drp EACH EYE PRN 11/07/24 Unknown History tears(ovzvxan-lagvtmce-pnpaqor) 0.1 %-0.3 %-0.2 % eye drops ceftriaxone 1 gram solution for 1 g IM DAILY 11/07/24 Unknown History injection ondansetron HCl 4 mg tablet 4 mg PO Q6H 11/07/24 Unknown History Allergy/AdvReac Type Severity Reaction Status Date / Time metoprolol tartrate (From Allergy Unknown Verified 10/24/24 11:28 Lopressor) shellfish derived Allergy Anaphylaxis Verified 10/24/24 11:28 Sulfa (Sulfonamide Allergy Rash Verified 10/24/24 11:28 Antibiotics) Family History Father Heart disease Myocardial infarction Surgical History History of cholecystectomy History of coronary artery bypass surgery (~08/10/00) Hx of colonoscopy History of total right knee replacement History of left knee replacement History of intraocular lens implant Hx of heart bypass surgery Social History household members: spouse Smoking Status: Former smoker second hand exposure: Yes alcohol intake: never substance use type: does not use caffeine: Yes what type of physical activity do you participate in: none frequency: does not exercise ROS ROS Narrative 14 system ROS limited because patient has dementia. Mainly taken from patient's daughter, WILBERT at the bedside Constitutional: Reports fatigue and weakness. No fever. HEENT: History of epistaxis, Plavix was changed to baby aspirin. Reports systems reviewed and no addt'l complaints, except as documented Respiratory/Chest: Shortness of breath. Cough is described in HPI. CVS: No chest pain. A-fib. Gastrointestinal: Denies coffee ground emesis, hematemesis or vomiting Genitourinary: Denies burning urination or new urinary tract symptoms Musculoskeletal: Bilateral TKR. Limited mobility. Denies acute joint pain or limited range of motion. No acute injury Neurologic: Denies seizure-like symptoms. skin: No ulcer. No rash Endocrinology: Reports systems reviewed and no addt'l complaints, except as documented Hematologic/Lymphatic: Reports systems reviewed and no addt'l complaints, except as documented Rest 14 ROS are negative except as mentioned in HPI Vital Signs Vital Signs Vital Signs: 11/07/24 08:57 11/07/24 09:01 11/07/24 09:20 Temperature 97.8 F 97.8 F Temperature Source Oral Oral Pulse Rate 74 76 Respiratory Rate 16 18 Respiratory Effort Blood Pressure 114/50 L 114/50 L Blood Pressure Mean 71 71 Pulse Ox 93 93 92 Oxygen Delivery Method Nasal Cannula Nasal Cannula Nasal Cannula Oxygen Flow Rate (L/min) 2 2 2 11/07/24 10:00 11/07/24 11:00 11/07/24 12:00 Temperature 97.8 F 98.0 F Temperature Source Oral Oral Pulse Rate 64 59 L Respiratory Rate 24 H 18 Respiratory Effort Short of Breath Blood Pressure 104/37 L 103/44 L Blood Pressure Mean 59 63 Pulse Ox 96 97 Oxygen Delivery Method Nasal Cannula Nasal Cannula Nasal Cannula Oxygen Flow Rate (L/min) 3 3 4 Weight Weight: 190 lb 11.198 oz Body Mass Index (BMI) 31.7 Physical Exam Narrative General: Awake, alert, oriented x3, Cooperative. Frail and fatigued HEENT: Atraumatic, PERRLA, EOMI, Normocephalic Oral: Oral mucosa dry. No Gingival or Mucosal Lesions/ Ulcerations Neck: Supple, No JVD, Negative Carotid Bruits Chest wall/Lungs: Air entry severely diminished in bilateral lung bases. Bilateral coarse crepitation predominantly lung bases Cardiovascular: Irregular rhythm, Normal S1, Normal S2, No M/G/R Abdomen: Bowel Sounds Present, Soft, Non Tender, Non-Distended : No dysuria. No renal angle tenderness. No suprapubic tenderness. Extremities: No edema, Capillary Refill Less than 3 Seconds Skin: No rashes, No breakdown Musculoskeletal: Bilateral TKR. No Tenderness to Palpation of Joints or Extremities Neurological: Cranial nerves II-XII grossly intact, DTR 2+/4. No acute focal neurological deficit. Psych/Mental Status: Flat affect Results Lab / Micro Data 11/07/24 09:30 11/07/24 09:30 Labs: Laboratory Results - last 24 hr 11/07/24 09:30: WBC 20.2 H, RBC 2.90 L, Hgb 9.0 L, Hct 28.4 L, MCV 97.9, MCH 31.0, MCHC 31.7 L, RDW Std Deviation 50.1 H, RDW Coeff of Alexandra 16.0 H, Plt Count 195, Immature Gran % (Auto) 2.800 H, Neut % (Auto) 86.2 H, Lymph % (Auto) 4.3 L, [place] % (Auto) 5.9, Eos % (Auto) 0.6, Baso % (Auto) 0.2, Absolute Neuts (auto) 17.4 H, Absolute Lymphs (auto) 0.87, Nucleated RBC % 0.5, Sodium 139, Potassium 3.4, Chloride 99, Carbon Dioxide 23.3, Anion Gap 16 H, BUN 76 H, Creatinine 2.67 H, Estim Creat Clear Calc 17.34 L, Est GFR (MDRD) Non-Af 17 L, BUN/Creatinine Ratio 28.5 H, Glucose 109 H, Calcium 9.5, Magnesium 2.4 H, Troponin T High Sens 133 H*, [place] [address] H, TSH 2.010 11/07/24 09:51: PT Cancelled, INR Cancelled, APTT Cancelled, D-Dimer Quant (PE/DVT) Cancelled 11/07/24 10:20: PT Cancelled, INR Cancelled, APTT Cancelled, D-Dimer Quant (PE/DVT) Cancelled 11/07/24 10:50: Lactic Acid 1.7 11/07/24 11:13: PT 14.0, INR 1.1, APTT 30.6, D-Dimer Quant (PE/DVT) 2.80 H* 11/07/24 11:20: Troponin T Hi Sens 2 Hr 122 H* Micro: Microbiology 11/07/24 09:35 Mucosa - Nose SARS-CoV-2, Influenza & RSV (PCR) - Final Rhythm Strip Rhythm Strip: A-fib Rate: 61 Ectopy: None Imaging Radiology Impression Chest X-Ray 11/07/24 09:45 IMPRESSION: 1. Ill-defined opacity in the left lung base compatible with atelectasis versus pneumonia. Follow-up to radiographic resolution recommended. 2. Additional description as above. Reading Location: [id number] Assessment & Plan Assessment/Plan (1) Pneumonia: PLAN: Plan This 84-year-old female being admitted for pneumonia and hypoxia 1. SARS due to left lower lobe, healthcare associated pneumonia: Patient is being admitted in PCU. She was tachypneic, hypoxia, leukocytosis, 2.8% immature granulocytes, suggestive of left shift but no hypotension or lactic acidosis. Does not meet criteria for sepsis. Chest CT without contrast initially reviewed and shows left lower lobe infiltrate and chronic changes of COPD, official report pending. Patient started on IV vancomycin and Zosyn. Pneumonia workup including MRSA nasal screen ordered. Triple PCR for SARS-CoV-2, flu and RSV are negative Patient was last admitted in September for community-acquired pneumonia. 2. Mild COPD exacerbation due to pneumonia: COPD exacerbation as evidenced by increased shortness of breath, dyspnea and cough. Patient is being managed on scheduled bronchodilator, IV Solu-Medrol, Mucinex, incentive spirometry and Pep. 3. Unclear whether new onset or paroxysmal A-fib: Patient's daughter said she had A-fib in the past. Twelve-lead EKG shows A-fib at 61 beats minute. Patient not on anticoagulant but on baby aspirin. Discussed the risk, benefit and monitoring of anticoagulant patient daughter agreed. Low-dose Eliquis 2.5 mg twice daily started. 4. CAD status post CABG x 2: Patient does not have any chest pain but sometimes she had chest soreness from coughing. Baby aspirin was held as patient is started on Eliquis. 2 troponins 133, 122 decreasing trend suggestive of increased cardiac demand from pneumonia 5. Chronic HFrEF and HFpEF: Last echo January 2023 showed EF 45%, LA severely enlarged. As patient's BP on lower side therefore will hold antihypertensive medications including Lasix. BNP elevated but chest x-ray and chest CT did not show pulmonary edema. 6. Dyslipidemia: On simvastatin continued. 7. Dementia with behavioral disturbances: 8. Hypertension: As mentioned above. Hold antihypertensive medications DVT prophylaxis, high risk: On low-dose Eliquis. Living will/advanced directive/end of life care: Patient does have living will or advanced directive. After discussion of benefits/risks procedures involved with full code, DNR CC arrest and DNR CC, the patient and her daughter POA present in the ED and agreed for DNR CC arrest with no intubation. Patient doesn't want artificial life support including intubation, tube feed, ventilator and/chest compression, central venous catheter, vasopressor and DC shock if needed Total time spent in [id number] encounter in discussion of advanced directive 17 minutes. Microbiology Past 72 Hours 11/07/24 09:35 Mucosa - Nose SARS-CoV-2, Influenza & RSV (PCR) - Final Laboratory Results 11/07/24 09:30: WBC 20.2 H, RBC 2.90 L, Hgb 9.0 L, Hct 28.4 L, MCV 97.9, MCH 31.0, MCHC 31.7 L, RDW Std Deviation 50.1 H, RDW Coeff of Alexandra 16.0 H, Plt Count 195, Immature Gran % (Auto) 2.800 H, Neut % (Auto) 86.2 H, Lymph % (Auto) 4.3 L, [place] % (Auto) 5.9, Eos % (Auto) 0.6, Baso % (Auto) 0.2, Absolute Neuts (auto) 17.4 H, Absolute Lymphs (auto) 0.87, Nucleated RBC % 0.5, Sodium 139, Potassium 3.4, Chloride 99, Carbon Dioxide 23.3, Anion Gap 16 H, BUN 76 H, Creatinine 2.67 H, Estim Creat Clear Calc 17.34 L, Est GFR (MDRD) Non-Af 17 L, BUN/Creatinine Ratio 28.5 H, Glucose 109 H, Calcium 9.5, Magnesium 2.4 H, Troponin T High Sens 133 H*, [place] [address] H, TSH 2.010 11/07/24 10:50: Lactic Acid 1.7 11/07/24 11:13: PT 14.0, INR 1.1, APTT 30.6, D-Dimer Quant (PE/DVT) 2.80 H* 11/07/24 11:20: Troponin T Hi Sens 2 Hr 122 H* Charges/Coding Visit Charges Inpatient E&M: 81796 Init Hosp L3 Procedures Hospitalists Procedures: 68802 Advncd Care Plan 30 Min
[2024-11-07] MEDS: Piperacil/Tazobactam 4.5 GM in 0.9% Normal Saline (100mL MB+) 100 ML IV (12:20)
[2024-11-07] MEDS: Vancomycin HCl 2,000 MG in 0.9% Normal Saline (500mL Bag) 500 ML 250 MG IV (12:47)
--- NOTE | 2024-11-07 13:32 | PCM.RX.CS ---
Consult Antibiotic Management Pharmacy has been consulted to manage selected antibiotic: Vancomycin Type of Intervention Type of Consult: New start Suspected Infection Suspected Infection: Pneumonia Prior Doses of Antibiotics Prior Doses of Antibiotics Received/Current Regimen: Vancomycin 2000 mg IV x 1 given 11/07 @ 1247, patient is also on piperacillin/tazobactam Labs Labs: Sodium 139 mmol/L (133-145) 11/07/24 09:30 Potassium 3.4 mmol/L (3.3-5.1) 11/07/24 09:30 Chloride 99 mmol/L (98-108) 11/07/24 09:30 Carbon Dioxide 23.3 mmol/L (21.0-32.0) 11/07/24 09:30 Anion Gap 16 (5-15) H 11/07/24 09:30 BUN 76 mg/dL (4-19) H 11/07/24 09:30 Creatinine 2.67 mg/dL (0.70-1.20) H 11/07/24 09:30 Est GFR (MDRD) Non-Af 17 (>60) L 11/07/24 09:30 BUN/Creatinine Ratio 28.5 RATIO (10-20) H 11/07/24 09:30 Glucose 109 mg/dL (70-99) H 11/07/24 09:30 Microbiology Microbiology: Microbiology 11/07/24 09:35 Mucosa - Nose SARS-CoV-2, Influenza & RSV (PCR) - Final Dosing Weight Weight used for dosin kg Estimated Creatinine Clearance Estimated Creatinine Clearance: ~ 17 Goal Trough Goal Trough: 15-20 mcg/mL Pharmacy Plan for Drug Dosing Pharmacy Plan for Drug Dosing: Vancomycin 2000 mg IV x 1, random in AM, further dosing after that. Pharmacy Service will continue to monitor and adjust dosing as required. Follow-Up Labs Follow-Up Labs: Trough: Vancomycin Date/Time Labs Ordered Labs to be done on [date and time ordered]: 11/08 @ 0600
[2024-11-07 14:03] LABS: CPK Total, Creatine Kinase 94 U/L (24-195)
[2024-11-07 14:07] LABS: AST(SGOT) 19 U/L (<=31); Alanine Aminotransfer ALT/SGPT < 5 U/L (<=34); Albumin, Serum 3.4 g/dL (3.4-4.8); Alkaline Phosphatase 71 U/L (35-104); Bilirubin, Direct 0.21 mg/dL (0.00-0.30); Globulin 2.9 g/dL (2.2-4.2); Protein, Total 6.3 g/dL (5.9-8.4); Total Bilirubin 0.32 mg/dL (0.00-1.30)
[2024-11-07 15:32] LABS: Mucous, Urine 0 SEEN /hpf (<or=2+); Squamous Epithelial Cells - UA 0 SEEN /hpf (5-10)
[2024-11-07] MEDS: Methylprednisolone Sod Succ 40 MG/ML VIAL IV ×2 (15:49→22:14)
[2024-11-07] MEDS: guaiFENesin 1,200 MG Tablet 1200 MG PO (15:50)
[2024-11-07] MEDS: Carbidopa/Levodopa 25/100 Tablet PO (15:50)
[2024-11-07] MEDS: APIXABAN 2.5 MG TABLET (WCH) PO ×2 (15:50→22:15)
[2024-11-07] MEDS: Benzonatate 100 MG Capsule 200 MG PO ×2 (15:51→22:15)
[2024-11-07 15:53] LABS: Glucose, Dipstick Normal (Normal); Ketone-Dipstick Negative (Negative); Leukocyte Esterase-Dipstick Negative /ul (Negative); Nitrite-Dipstick Negative (Negative); Occult Blood-Urine Negative /ul (Negative); Protein-Dipstick 30 mg/dl (Negative); Urine Bilirubin Dipstick Negative (Negative); Urine Urobilinogen Normal (Normal)
[2024-11-07 15:56] LABS: Color, Urine Yellow (Yellow)
[2024-11-07 15:57] LABS: Urine Clarity Clear (Clear)
[2024-11-07 16:06] LABS: White Blood Cells 0-5 SEEN /hpf (0-5)
[2024-11-07 16:07] LABS: Bacteria RARE /hpf (None Seen); Red Blood Cells-Urine 0 SEEN /hpf (0-5)
[2024-11-07] MEDS: Ipratropium/Albuterol Sulfate 3 ML AMPUL.NEB INHALATION (19:17)
[2024-11-07] MEDS: Menthol/Lanolin/Calamine/Znox 113 GM Tube 1 APPLIC TOPICAL (22:14)
[2024-11-07] MEDS: Latanoprost 0.005% 1 Bottle 1 DRP OPHTHALMIC (22:15)
[2024-11-07] MEDS: traZODone 50 MG Tablet PO (22:15)
[2024-11-07] MEDS: Atorvastatin Calcium 10 MG Tablet PO (22:15)
[2024-11-07] MEDS: guaiFENesin 600 MG Tablet PO (22:15)
[2024-11-07] MEDS: Gabapentin 100 MG Capsule PO (22:15)
[2024-11-07] MEDS: Piperacil/Tazobactam 3.375 GM in 0.9% Normal Saline (50mL MB+) 50 ML IV (22:16)
[2024-11-07 22:38] LABS: Troponin T High Sens 4 HR 103 ng/L (<=14)
[2024-11-07] MEDS: DiphenhydrAMINE 12.5 MG/5 ML UDC PO (23:32)
[2024-11-08] VITALS (7 sets, daily range): BP systolic 123–142; BP diastolic 53–65; PULSE 67–79; RESP 12–20; TEMP 36.5–37.1; O2SAT 92–96; BMI 36.1
[2024-11-08] MEDS: Methylprednisolone Sod Succ 40 MG/ML VIAL IV (06:28)
[2024-11-08] MEDS: Benzonatate 100 MG Capsule 200 MG PO (06:29)
[2024-11-08] MEDS: Carbidopa/Levodopa 25/100 Tablet PO (06:29)
--- NOTE | 2024-11-08 07:51 | PCM.PN.HOSP ---
Reason for Visit Reason for Visit: Diagnoses Pneumonia, unspecified organism (11/07/24) Objective Data Objective Data Vital Signs: Vital Signs Temp Pulse Resp BP Pulse Ox O2 Del Method O2 Flow Rate 98.3 F 70 16 130/58 H 93 Nasal Cannula 2 11/08/24 04:42 11/08/24 04:42 11/08/24 04:42 11/08/24 04:42 11/08/24 04:42 11/08/24 04:42 11/08/24 04:42 Oxygen Flow Rate (L/min) 2 Oxygen Delivery Method Nasal Cannula Weight: 210 lb 5.136 oz Body Mass Index (BMI) 36.1 Intake & Output: Intake and Output for Last 24 Hours 11/06/24 11/07/24 11/08/24 23:59 23:59 23:59 Intake Total 1760 / 1760 50 / 50 Output Total 500 / 500 Balance 1260 / 1260 50 / 50 Lab / Micro Data 11/07/24 09:30 11/08/24 06:40 Labs: Laboratory Results - last 24 hr 11/07/24 09:30: WBC 20.2 H, RBC 2.90 L, Hgb 9.0 L, Hct 28.4 L, MCV 97.9, MCH 31.0, MCHC 31.7 L, RDW Std Deviation 50.1 H, RDW Coeff of Alexandra 16.0 H, Plt Count 195, Immature Gran % (Auto) 2.800 H, Neut % (Auto) 86.2 H, Lymph % (Auto) 4.3 L, [place] % (Auto) 5.9, Eos % (Auto) 0.6, Baso % (Auto) 0.2, Absolute Neuts (auto) 17.4 H, Absolute Lymphs (auto) 0.87, Nucleated RBC % 0.5, Sodium 139, Potassium 3.4, Chloride 99, Carbon Dioxide 23.3, Anion Gap 16 H, BUN 76 H, Creatinine 2.67 H, Estim Creat Clear Calc 17.34 L, Est GFR (MDRD) Non-Af 17 L, BUN/Creatinine Ratio 28.5 H, Glucose 109 H, Calcium 9.5, Magnesium 2.4 H, Troponin T High Sens 133 H*, [place] [address] H, TSH 2.010 11/07/24 09:51: PT Cancelled, INR Cancelled, APTT Cancelled, D-Dimer Quant (PE/DVT) Cancelled 11/07/24 10:20: PT Cancelled, INR Cancelled, APTT Cancelled, D-Dimer Quant (PE/DVT) Cancelled 11/07/24 10:50: Lactic Acid 1.7 11/07/24 11:13: PT 14.0, INR 1.1, APTT 30.6, D-Dimer Quant (PE/DVT) 2.80 H* 11/07/24 11:20: Total Bilirubin 0.32, Direct Bilirubin 0.21, AST 19, ALT < 5, Alkaline Phosphatase 71, Total Creatine Kinase 94, Troponin T Hi Sens 2 Hr 122 H*, Total Protein 6.3, Albumin 3.4, Globulin 2.9 11/07/24 15:25: Urine Color Yellow, Urine Clarity Clear, Urine pH 5.0, Ur Specific [place] 1.010, Urine Protein 30 H, Urine Glucose (UA) Normal, Urine Ketones Negative, Urine Occult Blood Negative, Urine Nitrite Negative, Urine Bilirubin Negative, Urine Urobilinogen Normal, Ur Leukocyte Esterase Negative, Urine RBC 0 SEEN, Urine WBC 0-5 SEEN, Ur Squamous Epith Cells 0 SEEN, Urine Bacteria RARE, Urine Mucus 0 SEEN 11/07/24 22:04: Troponin T Hi Sens 4Hr 103 H* 11/08/24 06:40: Random Vancomycin 21.0 H Micro: Microbiology 11/07/24 16:10 Nasal Secretion MRSA (PCR) - Final Meth. resistant Staph. aureus 11/07/24 15:25 Urine Catheter - Catheter Legionella Antigen - Final 11/07/24 15:25 Urine Catheter - Catheter Streptococcus pneumoniae Antigen (M - Final 11/07/24 09:35 Mucosa - Nose SARS-CoV-2, Influenza & RSV (PCR) - Final Radiography Diagnostic Testing: Radiology Impression Chest X-Ray 11/07/24 09:45 IMPRESSION: 1. Ill-defined opacity in the left lung base compatible with atelectasis versus pneumonia. Follow-up to radiographic resolution recommended. 2. Additional description as above. Reading Location: [id number] Chest CT 11/07/24 10:57 IMPRESSION: 1. New irregular nodular and masslike consolidation in the left lower lobe with largest masslike area measuring 6.0 cm compared with recent CT 10/16/2024. Findings are most compatible with an infectious/inflammatory process such as pneumonia. Notably there are nonspecific morphologic features which can be seen in the setting of atypical organizing pneumonia. Consider pulmonology consultation and recommend follow-up CT in 3 months to ensure stability or resolution of these findings. 2. Indeterminate 1.4 cm left adrenal nodule is unchanged from 04/21/2023, suggesting a benign/indolent etiology. If there is no history of malignancy, consider follow-up adrenal protocol CT in 12 months per ACR recommendations to complete 2 years of surveillance. If there is history of known malignancy, this should be performed more expeditiously on an outpatient basis. 3. Additional description as above. Reading Location: [id number] Rhythm Strip Rhythm Strip: A-fib Rate: 61 Ectopy: None Physical Exam Narrative Seen and examined Shortness of breath is better than yesterday. Patient has some aspiration and speech therapist saw the patient. Was evaluated by speech therapist with MBS which showed esophageal retention and vomiting after 4 sips and 2 bites. Physical exam General: Awake, alert, oriented x3, Cooperative. Frail and fatigued HEENT: Atraumatic, PERRLA, EOMI, Normocephalic Oral: Oral mucosa dry. No Gingival or Mucosal Lesions/ Ulcerations Neck: Supple, No JVD, Negative Carotid Bruits Chest wall/Lungs: Air entry severely diminished in bilateral lung bases. Bilateral coarse crepitation predominantly, left lung base Cardiovascular: Irregular rhythm, Normal S1, Normal S2, No M/G/R Abdomen: Bowel Sounds Present, Soft, Non Tender, Non-Distended : No dysuria. No renal angle tenderness. No suprapubic tenderness. Extremities: No edema, Capillary Refill Less than 3 Seconds Skin: No rashes, No breakdown Musculoskeletal: Bilateral TKR. No Tenderness to Palpation of Joints or Extremities Neurological: Cranial nerves II-XII grossly intact, DTR 2+/4. No acute focal neurological deficit. Psych/Mental Status: Flat affect, dementia Assessment & Plan Assessment/Plan (1) Pneumonia: PLAN: Plan This 84-year-old female being admitted for pneumonia and hypoxia 1. SARS due to left lower lobe, healthcare associated pneumonia/aspiration pneumonia: Patient is being admitted in PCU. She was tachypneic, hypoxia, leukocytosis, 2.8% immature granulocytes, suggestive of left shift but no hypotension or lactic acidosis. Does not meet criteria for sepsis. Chest CT without contrast initially reviewed and shows left lower lobe infiltrate and chronic changes of COPD, official report pending. Patient started on IV vancomycin and Zosyn. Pneumonia workup including MRSA nasal screen ordered. Triple PCR for SARS-CoV-2, flu and RSV are negative Patient was last admitted in September for community-acquired pneumonia. 11/08: MRSA nasal screen all came positive. Patient on vancomycin since admission. Procurement Specialist consulted and reviewed. Left lower lobe pneumonia most likely due to aspiration pneumonia. Patient also had esophageal retention and vomiting during modified barium swallow. Made n.p.o. GI consulted. 2. Mild COPD exacerbation due to pneumonia: COPD exacerbation as evidenced by increased shortness of breath, dyspnea and cough. Patient is being managed on scheduled bronchodilator, IV Solu-Medrol, Mucinex, incentive spirometry and Pep. 11/08: COPD exacerbation got much better. IV Solu-Medrol discontinued. Risk of worsening of pneumonia on steroid therefore steroid discontinued 3. Unclear whether new onset or paroxysmal A-fib: Patient's daughter said she had A-fib in the past. Twelve-lead EKG shows A-fib at 61 beats minute. Patient not on anticoagulant but on baby aspirin. Discussed the risk, benefit and monitoring of anticoagulant patient daughter agreed. Low-dose Eliquis 2.5 mg twice daily started. 4. CAD status post CABG x 2: Patient does not have any chest pain but sometimes she had chest soreness from coughing. Baby aspirin was held as patient is started on Eliquis. 2 troponins 133, 122 decreasing trend suggestive of increased cardiac demand from pneumonia 11/08: Even after communication with the nursing staff not to do third troponin, it was ordered probably by night nurse and third troponin is the lowest 103 therefore it is futile test. Mildly irritated due to increased cardiac demand. 5. Chronic HFrEF and HFpEF: Last echo January 2023 showed EF 45%, LA severely enlarged. As patient's BP on lower side therefore will hold antihypertensive medications including Lasix. BNP elevated but chest x-ray and chest CT did not show pulmonary edema. 6. Dyslipidemia: On simvastatin continued. 7. Dementia with behavioral disturbances: 8. Hypertension: As mentioned above. Hold antihypertensive medications DVT prophylaxis, high risk: On low-dose Eliquis. Living will/advanced directive/end of life care: Patient does have living will or advanced directive. After discussion of benefits/risks procedures involved with full code, DNR CC arrest and DNR CC, the patient and her daughter POA present in the ED and agreed for DNR CC arrest with no intubation. Patient doesn't want artificial life support including intubation, tube feed, ventilator and/chest compression, central venous catheter, vasopressor and DC shock if needed Total time spent in [id number] encounter in discussion of advanced directive 17 minutes. Microbiology Past 72 Hours 11/07/24 16:10 Nasal Secretion MRSA (PCR) - Final Meth. resistant Staph. aureus 11/07/24 15:25 Urine Catheter - Catheter Legionella Antigen - Final 11/07/24 15:25 Urine Catheter - Catheter Streptococcus pneumoniae Antigen (M - Final 11/07/24 09:35 Mucosa - Nose SARS-CoV-2, Influenza & RSV (PCR) - Final Laboratory Results 11/07/24 11:20: Total Bilirubin 0.32, Direct Bilirubin 0.21, AST 19, ALT < 5, Alkaline Phosphatase 71, Total Creatine Kinase 94, Total Protein 6.3, Albumin 3.4, Globulin 2.9 11/07/24 15:25: Urine Color Yellow, Urine Clarity Clear, Urine pH 5.0, Ur Specific [place] 1.010, Urine Protein 30 H, Urine Glucose (UA) Normal, Urine Ketones Negative, Urine Occult Blood Negative, Urine Nitrite Negative, Urine Bilirubin Negative, Urine Urobilinogen Normal, Ur Leukocyte Esterase Negative, Urine RBC 0 SEEN, Urine WBC 0-5 SEEN, Ur Squamous Epith Cells 0 SEEN, Urine Bacteria RARE, Urine Mucus 0 SEEN 11/07/24 22:04: Troponin T Hi Sens 4Hr 103 H* 11/08/24 06:40: Creatinine 2.01 H, Estim Creat Clear Calc 23.76 L, Est GFR (MDRD) Non-Af 24 L, Procalcitonin 5.72 H, Random Vancomycin 21.0 H Charges/Coding Visit Charges Inpatient E&M: 77712 Subs Hosp L2
[2024-11-08] MEDS: Ipratropium/Albuterol Sulfate 3 ML AMPUL.NEB INHALATION ×3 (08:17→19:52)
--- NOTE | 2024-11-08 08:48 | EX.PCM.CONCC ---
Assessment & Plan Assessment/Plan (1) Pneumonia: PLAN: Plan RECOMMENDATIONS: 1. Wean supplemental oxygen to maintain saturations at or above 90%. 2. Agree with empiric broad-spectrum antimicrobials. 3. Gastroenterology consultation is pending. 4. Maintain n.p.o. status for now. 5. Continue bronchodilator therapy. 6. Obtain and send sputum for culture. 7. Recommend follow-up imaging of the chest in 6 to 8 weeks after completing antibiotic treatment course. IMPRESSIONS: 1. Shortness of breath with mild hypoxemia The patient was recently hospitalized at the end of September at [facility] with concern for decompensated heart failure, epistaxis and community-acquired pneumonia. She apparently completed a treatment course of antibiotics for the aforementioned. Over the course the last several days, she has developed worsening shortness of breath and a supplemental oxygen requirement of 2 L/min. Her chest imaging demonstrated a significant consolidation in the left lower lobe, which was not present on prior chest imaging from October 16. In addition to the aforementioned, there is over concern for potential aspiration with esophageal dysphagia noted by speech therapy. Therefore, the findings noted on the CT scan could represent a possible aspiration pneumonia, which would not have been addressed by the prior antibiotic treatment course. In addition, the patient tested positive for MRSA on her nasal swab, making an underlying MRSA pneumonia a possibility as well. Accordingly, the patient has been placed on appropriate broad-spectrum antimicrobial coverage. She is currently being followed by speech therapy with consultation to be placed to gastroenterology for potential endoscopic evaluation. I would maintain the patient in aspiration precautions. Maintain n.p.o. status for now. Obtain and send sputum for culture. Continue current supportive measures with supplemental oxygen to maintain saturations at or above 90% along with bronchodilator therapy. 2. History of COPD/coronary artery disease status post CABG/chronic heart failure with reduced ejection fraction/dementia Complicates care, management, recovery and prognosis. Continue supportive measures as noted above. This note was generated with [email or web address] dictation software. It may contain incorrect words, spelling, and punctuation that were not noted in checking the note before signing. HPI Consult Data Date of Consult: 11/08/24 HPI Narrative Reason for Consultation: Pneumonia HPI Narrative: The patient is an 84-year-old female, with a history as outlined below, who presented to the emergency department on November 07 via EMS with shortness of breath and cough. The patient has a documented medical history of COPD, hypertension, hyperlipidemia, dementia. The patient was hospitalized at [facility] October 17 through with epistaxis along with respiratory failure, suspected to be related to community-acquired pneumonia and decompensated heart failure. The patient's BNP was elevated at that time to 22,915. Echocardiogram revealed an ejection fraction of 45%. In addition, the patient was noted to have dysphagia, for which she was evaluated by speech therapy with dietary modification recommended. It should be noted that CT imaging of the chest completed on October 16 failed to demonstrate evidence of a significant consolidation. The patient was then seen in her cardiology office on October 24 due to her history of coronary artery disease status post CABG. The patient was maintained on Lasix. On presentation to the emergency department, the patient was documented to be afebrile and hemodynamically stable. Laboratory evaluation was notable for a white blood cell count of 20,000. Chemistry profile was notable for an elevated creatinine at 2.67. Lactate was within normal limits. Troponin was elevated at 133 with a BNP of 17,035. Urinalysis was unremarkable. COVID, influenza and RSV PCR's were negative. Blood and urine cultures were collected. MRSA swab was positive. The patient was subsequently placed on Zosyn and vancomycin. She was admitted to the hospital for further management. This morning, the patient completed a modified barium swallow, which demonstrated concern for esophageal clearance esophageal dysphagia noted, for which n.p.o. diet was recommended with consultation to be placed to GI for possible endoscopy. [facility] Medical History DNR (do not resuscitate) Hypoxia Pneumonia Epistaxis Congestive heart failure (CHF) COVID-19 COPD (chronic obstructive pulmonary disease) Acute respiratory failure with hypoxia COVID HFrEF (heart failure with reduced ejection fraction) Insomnia Depression Coronary artery disease Hyperlipidemia Acute UTI Weakness Wears glasses Wears dentures Post-menopausal Forgetfulness Depression Anxiety Lichen sclerosus Walker as ambulation aid Ambulates with cane Arthritis History of renal disease Low iron Pulmonary embolism DVT (deep venous thrombosis) Restless legs History of diverticulitis Shortness of breath on exertion Emphysema, unspecified COPD (chronic obstructive pulmonary disease) History of edema History of stress test History of echocardiogram Hypertension History of heart attack Chest pain Hx of intestinal obstruction History of left heart catheterization (LHC) (~11/05/21) Fatigue Angina pectoris Lung nodule Atherosclerotic heart disease of unga coronary artery without angina pectoris Pure hypercholesterolemia Gout Essential hypertension Rectocele Anemia Constipation Diarrhea Asthma SOB (shortness of breath) Hx TIA/stroke w/o resid PVD (peripheral vascular disease) Other pulmonary embolism and infarction Osteoporosis Myalgia Lichen sclerosus Glaucoma Dysthymic disorder Dysplasia of cervix, unspecified Diverticulosis CKD (chronic kidney disease) stage 3, GFR 30-59 ml/min Scleroderma History of dermatomyositis Home Medications ?Medication ?Instructions ?Recorded ?Last Taken ?Type simvastatin 20 mg tablet 20 mg PO QHS CHOLESTEROL 10/10/15 07/03/23 History latanoprost 0.005 % eye drops 1 drp ophthalmic (eye) QPM GLAUCOMA 01/12/19 07/03/23 History nitroglycerin 0.4 mg sublingual 0.4 mg sublingual Q5-15M PRN CHEST 01/12/19 Unknown History tablet PAIN clobetasol 0.05 % topical cream 1 applic topical BID PSORIASES 06/26/21 Unknown History brimonidine 0.1 % eye drops 2 drp ophthalmic (eye) DAILY EYE 07/11/21 07/03/23 History IRRITATION calcipotriene 0.005 % topical cream 1 applic topical DAILY PRN 01/22/23 Unknown History PSORIASES montelukast 10 mg tablet 10 mg PO DAILY ALLERGIES 01/22/23 07/04/23 History netarsudil 0.02 % eye drops 1 drp EACH EYE DAILY GLAUCOMA 01/22/23 07/03/23 History (Rhopressa) acetaminophen 500 mg tablet 1,000 mg (2 x 500 mg) PO Q6H PRN 02/06/23 Unknown Rx PRN Pain Score 1-10 #0 tabs amlodipine 5 mg tablet 5 mg PO DAILY 30 days #30 tabs 02/06/23 07/04/23 Rx budesonide 160 mcg-glycopyr 9 2 inh inhalation DAILY 07/04/23 07/04/23 History mcg-formot 4.8 mcg/actuation HFA inhaler (Breztri Aerosphere) gabapentin 100 mg capsule 200 mg PO QHS 07/04/23 07/03/23 History trazodone 50 mg tablet 75 mg PO QHS 07/04/23 07/03/23 History benzonatate 100 mg capsule 100 mg PO TID PRN cough 10/13/23 Unknown History furosemide 40 mg tablet 40 mg PO DAILY 10/13/23 Unknown History isosorbide mononitrate 60 mg See Rx Instructions .Route 10/28/23 Unknown Rx tablet,extended release 24 hr .COMPLEX #60 TABLETS cholecalciferol (vitamin D3) 25 25 mcg PO QDAY 06/21/24 Unknown History mcg (1,000 unit) capsule carbidopa 25 mg-levodopa 100 mg 2 tab PO TID 10/16/24 Unknown History tablet sertraline 100 mg tablet 100 mg PO DAILY 10/16/24 Unknown History albuterol sulfate 90 mcg/actuation 2 puff inhalation Q8H PRN 10/24/24 Unknown History aerosol inhaler (Ventolin HFA) shortness of breath or wheezing aspirin 81 mg tablet,delayed 81 mg PO QDAY #90 tabs 10/24/24 Unknown Rx release (Adult Aspirin Regimen) bisacodyl 10 mg rectal suppository 10 mg UT QDAY PRN constipation 10/24/24 Unknown History cyanocobalamin (vitamin B-12) 100 100 mcg PO QDAY 10/24/24 Unknown History mcg tablet diphenhydramine HCl 25 mg tablet 12.5 mg PO DAILY PRN allergy 10/24/24 Unknown History symptoms docusate sodium 100 mg capsule 100 mg PO BID CONSTIPATION 10/24/24 Unknown History (Colace) ferrous sulfate 325 mg (65 mg 325 mg PO QDAY 10/24/24 Unknown History iron) tablet guaifenesin 600 mg tablet, 600 mg PO BID 10/24/24 Unknown History extended release 12 hr hydrocodone 7.5 mg-acetaminophen 1 tab PO .COMPLEX PRN pain 10/24/24 Unknown History 325 mg tablet lisinopril 20 mg tablet 20 mg PO BID HTN 10/24/24 Unknown History loperamide 2 mg tablet 2 mg PO ONCE PRN loose stool 10/24/24 Unknown History magnesium hydroxide 400 mg/5 mL 30 ml PO QDAY PRN constipation 10/24/24 Unknown History oral suspension (Milk of Magnesia) polyethylene glycol 3350 17 17 g PO QDAY 10/24/24 Unknown History gram/dose oral powder propylene glycol 0.6 % eye drops 1 drp ophthalmic (eye) BID-QID PRN 10/24/24 Unknown History (Systane Complete) dry eye(s) artificial 1 drp EACH EYE PRN 11/07/24 Unknown History tears(chddmbj-ybsvzmxb-shnztcl) 0.1 %-0.3 %-0.2 % eye drops ceftriaxone 1 gram solution for 1 g IM DAILY 11/07/24 Unknown History injection ondansetron HCl 4 mg tablet 4 mg PO Q6H 11/07/24 Unknown History Allergy/AdvReac Type Severity Reaction Status Date / Time metoprolol tartrate (From Allergy Unknown Verified 10/24/24 11:28 Lopressor) shellfish derived Allergy Anaphylaxis Verified 10/24/24 11:28 Sulfa (Sulfonamide Allergy Rash Verified 10/24/24 11:28 Antibiotics) Family History Father Heart disease Myocardial infarction Surgical History History of cholecystectomy History of coronary artery bypass surgery (~08/10/00) Hx of colonoscopy History of total right knee replacement History of left knee replacement History of intraocular lens implant Hx of heart bypass surgery Social History household members: spouse Smoking Status: Former smoker second hand exposure: Yes alcohol intake: never substance use type: does not use caffeine: Yes what type of physical activity do you participate in: none frequency: does not exercise ROS ROS Narrative 10 systems were reviewed with pertinent positives as noted in the HPI above. Physical Exam Const alert and no apparent distress Constitutional Narrative: Daughter is present at the bedside. General Appearance: cooperative HEENT normocephalic, head/scalp atraumatic and moist oral mucous membranes Eyes PERRL, EOMs intact bilaterally and conjunctivae normal Neck supple General: trachea midline Chest inspection of chest normal Resp Resp Narrative: Diminished left greater than right with faint rales in the left lung base Cardio regular rate and regular rhythm GI normal to inspection, nondistended, normoactive bowel sounds Extremity no clubbing, cyanosis or edema Skin no rashes or lesions noted Neuro CN's II-XII intact bilaterally, moves all extremities and no focal motor deficits Psych cooperative and affect normal Lab / Micro Data 11/07/24 09:30 11/08/24 06:40 Labs: Laboratory Results - last 24 hr 11/07/24 09:30: WBC 20.2 H, RBC 2.90 L, Hgb 9.0 L, Hct 28.4 L, MCV 97.9, MCH 31.0, MCHC 31.7 L, RDW Std Deviation 50.1 H, RDW Coeff of Alexandra 16.0 H, Plt Count 195, Immature Gran % (Auto) 2.800 H, Neut % (Auto) 86.2 H, Lymph % (Auto) 4.3 L, [place] % (Auto) 5.9, Eos % (Auto) 0.6, Baso % (Auto) 0.2, Absolute Neuts (auto) 17.4 H, Absolute Lymphs (auto) 0.87, Nucleated RBC % 0.5, Sodium 139, Potassium 3.4, Chloride 99, Carbon Dioxide 23.3, Anion Gap 16 H, BUN 76 H, Creatinine 2.67 H, Estim Creat Clear Calc 17.34 L, Est GFR (MDRD) Non-Af 17 L, BUN/Creatinine Ratio 28.5 H, Glucose 109 H, Calcium 9.5, Magnesium 2.4 H, Troponin T High Sens 133 H*, [place] [address] H, TSH 2.010 11/07/24 09:51: PT Cancelled, INR Cancelled, APTT Cancelled, D-Dimer Quant (PE/DVT) Cancelled 11/07/24 10:20: PT Cancelled, INR Cancelled, APTT Cancelled, D-Dimer Quant (PE/DVT) Cancelled 11/07/24 10:50: Lactic Acid 1.7 11/07/24 11:13: PT 14.0, INR 1.1, APTT 30.6, D-Dimer Quant (PE/DVT) 2.80 H* 11/07/24 11:20: Total Bilirubin 0.32, Direct Bilirubin 0.21, AST 19, ALT < 5, Alkaline Phosphatase 71, Total Creatine Kinase 94, Troponin T Hi Sens 2 Hr 122 H*, Total Protein 6.3, Albumin 3.4, Globulin 2.9 11/07/24 15:25: Urine Color Yellow, Urine Clarity Clear, Urine pH 5.0, Ur Specific [place] 1.010, Urine Protein 30 H, Urine Glucose (UA) Normal, Urine Ketones Negative, Urine Occult Blood Negative, Urine Nitrite Negative, Urine Bilirubin Negative, Urine Urobilinogen Normal, Ur Leukocyte Esterase Negative, Urine RBC 0 SEEN, Urine WBC 0-5 SEEN, Ur Squamous Epith Cells 0 SEEN, Urine Bacteria RARE, Urine Mucus 0 SEEN 11/07/24 22:04: Troponin T Hi Sens 4Hr 103 H* 11/08/24 06:40: Random Vancomycin 21.0 H Micro: Microbiology 11/07/24 16:10 Nasal Secretion MRSA (PCR) - Final Meth. resistant Staph. aureus 11/07/24 15:25 Urine Catheter - Catheter Legionella Antigen - Final 11/07/24 15:25 Urine Catheter - Catheter Streptococcus pneumoniae Antigen (M - Final 11/07/24 09:35 Mucosa - Nose SARS-CoV-2, Influenza & RSV (PCR) - Final Rhythm Strip Rhythm Strip: A-fib Rate: 61 Ectopy: None Imaging Radiology Impression Chest X-Ray 11/07/24 09:45 IMPRESSION: 1. Ill-defined opacity in the left lung base compatible with atelectasis versus pneumonia. Follow-up to radiographic resolution recommended. 2. Additional description as above. Reading Location: [id number] Chest CT 11/07/24 10:57 IMPRESSION: 1. New irregular nodular and masslike consolidation in the left lower lobe with largest masslike area measuring 6.0 cm compared with recent CT 10/16/2024. Findings are most compatible with an infectious/inflammatory process such as pneumonia. Notably there are nonspecific morphologic features which can be seen in the setting of atypical organizing pneumonia. Consider pulmonology consultation and recommend follow-up CT in 3 months to ensure stability or resolution of these findings. 2. Indeterminate 1.4 cm left adrenal nodule is unchanged from 04/21/2023, suggesting a benign/indolent etiology. If there is no history of malignancy, consider follow-up adrenal protocol CT in 12 months per ACR recommendations to complete 2 years of surveillance. If there is history of known malignancy, this should be performed more expeditiously on an outpatient basis. 3. Additional description as above. Reading Location: [id number] Charges/Coding Visit Charges Inpatient E&M: 03113 Init Hosp L3
[2024-11-08 09:00] LABS: Creatinine, Serum 2.01 mg/dL (0.70-1.20); EST Glomerular Filtration Rate 24 (>60); Estimated Creatinine Clearance 23.76 ml/min (50-250)
[2024-11-08] MEDS: Piperacil/Tazobactam 3.375 GM in 0.9% Normal Saline (50mL MB+) 50 ML IV ×2 (09:24→21:43)
[2024-11-08] MEDS: BRIMONIDINE 0.2% 5ML BOTTLE 1 DRP OPHTHALMIC (09:26)
[2024-11-08] MEDS: Menthol/Lanolin/Calamine/Znox 113 GM Tube 1 APPLIC TOPICAL ×2 (09:26→21:41)
--- NOTE | 2024-11-08 09:49 | SP.MBSS_ITS ---
Modified Barium Swallow Patient Information Study Date: 11/08/24 Study Time: 08:45 Direct Billable Minutes: 102 Total Minutes procedure & reportin Diagnosis: PNA J18.9 Referring Physician: Apollo Dinh Reason for Referral: Objectively assess swallow function, assess risk for aspiration, and determine recommendations for least restrictive diet textures and compensatory strategies to improve safety of swallow. Medical History: Pt is an 84-year-old female w/ PMH below (See EMR for full PMH) who was brought to ED 11/07/2024 with hypoxia and hypotension from custodial. Patient was also tachypneic, heart rate 100/min. She was discharged 2 weeks ago from [facility] with oxygen as needed to do physical therapy but for 2 to 3 days before this admission, she required O2 24/7 (2-3L). Pt has also had productive cough since last hospitalization. Pt admitted to PCU for management of PNA. Pt's ST from [facility] contacted this [employer] and recommended MBSS due to concerns for esophageal dysphagia. The patient had a MBSS completed at [facility] ~1 month ago that did not include esophageal screens. This [employer] deferred BSE and recommended MBSS today. Per student RN, the patient was made NPO last night due to coughing when consuming medications. PMH: DNR, Hypoxia, PNA, CHF, COVID-19, COPD, Acute respiratory failure with hypoxia, HFrEF (heart failure with reduced ejection fraction), CAD, HLD, Acute UTI, Weakness, Depression, Wears dentures and glasses, Forgetfulness, Anxiety, Lichen sclerosus, Hx of renal disease, Low iron, PE, DVT, Hx of diverticulitis, SOB on exertion, Hx of heart attack, Hx of intestinal obstruction, History of left heart catheterization (~11/05/21), HTN, Anemia, Asthma, Hx of TIA, Myalgia, Glaucoma, Osteoporosis, CKD stage 3, Scleroderma. Current Diet Ordered: NPO Dentition: Upper Dentures and Lower Dentures Mental Status: WNL (Able to follow commands, required repetition for rationale for repeat MBSS) Respiratory Status: Oxygenating on 2L/M nasal cannula Penetration-Aspiration Scale Penetration-Aspiration Scale: OBJECTIVE ASSESSMENT OF SWALLOW FUNCTION (QUANTITATIVE ? PER TRIAL): PENETRATION / ASPIRATION SCALE (AMAYA): 1 = does not enter airway 2 = enters airway/above vocal folds/ejected 3 = enters airway/above vocal folds/not ejected 4 = enters airway/contacts vocal folds/ejected 5 = enters airway/contacts vocal folds/not ejected 6 = enters airway/below vocal folds/ejected 7 = enters airway/below vocal folds/not ejected despite effort 8 = enters airway/below vocal folds/no effort VIDEOFLOROSCOPIC SCALE SCORE (AMAYA): Grade I = aspiration of material that has penetrated into the laryngeal vestibule, intact cough reflex Grade II = aspiration < 10 % of the bolus, intact cough reflex Grade III = aspiration of < 10 % of the bolus, reduced cough reflex or aspiration of > 10 % of the bolus, intact cough reflex Grade IV = aspiration of > 10 % of the bolus, reduced cough reflex Penetration-Aspiration Scale Score Thin Liquid via teaspoon: Result: 2= enter airway/above vocal folds/ejected Thin Liquid via teaspoon Trial 2: Result: 2= enter airway/above vocal folds/ejected Thin Liquid via large single sip: cup: Result: 2= enter airway/above vocal folds/ejected Nettie Thick Liquid via large single sip: cup: Result: 3= enters airways/above vocal folds/not ejected Pudding via teaspoon: Result: 1= does not enter airway Comment: Esophageal screen - Retention in the lower esophagus w/ retrograde flow to the middle esophagus. Thin Liquid via single sip: straw: Result: 2= enter airway/above vocal folds/ejected Comment: Esophageal screen - Liquid wash cleared a majority of pudding through the LES; however, retention of liquid barium in the lower esophagus w/ retrograde flow. 08/27 Cookie: Comment: Unable to provide PAS score as fluoroscopy was not on during the swallow. [employer] had asked the medical transcription radiology for an esophageal screen just prior to the swallow due to pt beginning to gag w/ body lurching forward. Laryngeal vestibule and trachea appeared clear, so no laryngeal penetration or aspiration was suspected. Esophageal screen - Retention of cookie in lower esophagus w/ abrupt retrograde flow to middle/upper esophagus followed by vomiting. Study ended w/ vomiting and ENGRAVER [employer]ING tended to the patient. Vomit was greenish w/ white barium throughout. Oral Phase Labial Seal: No Labial Escape Tongue Control During Bolus Hold: Posterior escape of greater than half of bolus Bolus Preparation/Mastication: Slow prolonged chewing/mashing with complete recollection Bolus Transport/Lingual Motion: Slowed tongue motion Oral Residue: Residue collection on oral structures Pharyngeal Phase Initiation of Pharyngeal Swallow: Bolus head in pyriforms Soft Palate Elevation: Trace column of contrast/air between soft palate and pharyngeal wall Laryngeal Elevation: Partial superior movement thyroid cart/partial apprx aryt- epig petiole Anterior Hyoid Excursion: Partial anterior movement Epiglottic Movement: Complete inversion Laryngeal Vestibule Closure at Height of Swallow: Incomplete; narrow column of air/contrast in laryngeal vestibule Pharyngeal Stripping Wave: Present - complete Pharyngoesophageal Segment Opening: Parital distension and partial duration; parital obstruction of flow Tongue Base Retraction: Trace column of contrast between tongue base & post. pharyngeal wall Pharyngeal Residue: Trace residue within or on pharyngeal structures Esophageal Phase Esophageal Clearance: Esophageal retention w/ retrograde flow through pharyngoesophageal seg (Vomiting after cookie trial. ) Diagnosis/Impression Diagnosis: Mild oropharyngeal dysphagia R13.12; Esophageal dysphagia R13.14 Impression: The oral phase is primarily marked by... -Consumption of large sips despite verbal cues for small sips. -Decreased bolus control w/ posterior loss of >1/2 the bolus to the pyriforms prior to swallow onset. -Trace-mild oral residues. -Slowed tongue motion for A-P transport. -Slowed, but complete mastication of cookie. The pharyngeal phase is primarily marked by... -Delayed swallow onset. -Spillage of barium to the pharynx w/ resulting laryngeal penetration, which did not fully eject w/ mildly thick liquids due to mildly decreased anterior hyoid excursion and laryngeal elevation. Consistent laryngeal penetration of thin l iquids w/ complete ejection. No aspiration. The esophageal phase is primarily marked by... -Retention of pudding in the esophagus w/ retrograde flow, which mostly cleared w/ thin liquid wash; however, retention of portion of thin liquid wash in lower esophagus w/ retrograde flow. -Retention of cookie in mid esophagus w/ vomiting after the trial. Recommendations Diet: NPO (Strict) Comment: Ok to resume full liquid diet w/ direct supervision if cleared by GI. Please hold solids until bedside re-assessment by ST. Recommend Repeat Modified Barium Swallow: TBD Need for Skilled Speech Therapy Services: Yes Comment: Dysphagia therapy recommended 5-7X/week during acute stay w/ continued ST services recommended at discharge. POC to include.... -Once pt resumes po intake, ENGRAVER [employer]ING will train the patient in use of strategies to decrease risk for aspiration & reflux aspiration (small bites/sips, slow rate, alternate bites/sips 1:1, sitting upright during & 30-60min after po intake). -Ongoing assessment of diet tolerance of recommended textures. Strict NPO until EGD. Ok to resume full liquids after if cleared by GI; however, ST to assess diet tolerance of solids at bedside prior to further diet advancement. Nursing communication note placed. -Train the patient in oropharyngeal exercise program to improve bolus control, airway closure, swallow onset (lingual resistance, Gaby, effortful swallow). Goals... LTG: The patient will consume least restrictive diet textures without overt s/s of aspiration with 90% acc with minimal verbal cues to utilize strategies to facilitate safe po intake. STG: The patient will complete an oropharyngeal exercise program X10-15 reps, 3- 5X daily with minimal verbal cues to improve strength, ROM, and coordination of swallowing mechanism. Recommended Referrals: GI Consult (Esophageal retention and vomiting during MBSS) Education Completed: 1. Described result of evaluation., 2. Pt understands evalu ation & agrees with goals and treatment plan. and 7. Pt requires further education on strategies & risks. Status Active ST Patient: Active Contact Information [facility] Speech Therapy:: Laly Jones M.A. [facility] Speech-Language Pathologist [facility] [address] [place] [address] [email or web address] [phone]
--- NOTE | 2024-11-08 10:05 | PCM.RX.CS ---
Consult Antibiotic Management Pharmacy has been consulted to manage selected antibiotic: Vancomycin Type of Intervention Type of Consult: Follow-up Labs Labs: Sodium 139 mmol/L (133-145) 11/07/24 09:30 Potassium 3.4 mmol/L (3.3-5.1) 11/07/24 09:30 Chloride 99 mmol/L (98-108) 11/07/24 09:30 Carbon Dioxide 23.3 mmol/L (21.0-32.0) 11/07/24 09:30 Anion Gap 16 (5-15) H 11/07/24 09:30 BUN 76 mg/dL (4-19) H 11/07/24 09:30 Creatinine 2.01 mg/dL (0.70-1.20) H 11/08/24 06:40 Est GFR (MDRD) Non-Af 24 (>60) L 11/08/24 06:40 BUN/Creatinine Ratio 28.5 RATIO (10-20) H 11/07/24 09:30 Glucose 109 mg/dL (70-99) H 11/07/24 09:30 Random Vancomycin 21.0 ug/mL (0.0-15.0) H 11/08/24 06:40 Microbiology Microbiology: Microbiology 11/07/24 16:10 Nasal Secretion MRSA (PCR) - Final Meth. resistant Staph. aureus 11/07/24 15:25 Urine Catheter - Catheter Legionella Antigen - Final 11/07/24 15:25 Urine Catheter - Catheter Streptococcus pneumoniae Antigen (M - Final 11/07/24 09:35 Mucosa - Nose SARS-CoV-2, Influenza & RSV (PCR) - Final Goal Trough Goal Trough: 15-20 mcg/mL Pharmacy Plan for Drug Dosing Pharmacy Plan for Drug Dosing: VANCOMYCIN LEVEL RECEIVED Current Vancomycin Dose: 2G IV x1 administered 11/07 @1247 Number of Doses Received: 1 Vancomycin Level: 21 Hours Since Last Dose: 18hr Renal Function: 2.01 (CrCl = 23 mL/min) Renal Function Trend: improving Vancomycin Plan/Comments: The patient had a random trough drawn which resulted in a value of 21 (goal 15-20). The patient's trough is still above therapeutic goal. Willk continue to hold vancomycin at this time. Will recheck a trough in 12hr and resume once trough is <20. Note: Due to improvement in renal function and trough result/timing, will not wait until tomorrow morning, as it may be below goal if we wait that long. Pending Level: *RANDOM* 11/08/24 @1800 Pharmacy Service will continue to monitor and adjust dosing as required.
[2024-11-08 10:06] LABS: Procalcitonin 5.72 ng/mL (<=0.10)
--- NOTE | 2024-11-08 10:16 | CASEMGMT ---
Discharge Planning Updates faxed to [facility] @ [place]. Tamara Hines DC Planning Asst.
[2024-11-08 14:26] LABS: Absolute Lymphocyte Count 0.33 X10^3/uL (0.83-4.51); Absolute Neutrophil Count 8.7 X10^3/uL (2.0-7.7); Basophil# 0.02 X10^3/uL; Basophil% 0.2 % (0-1); Hematocrit 25.8 % (37-47); Hemoglobin 8.1 g/dL (12.0-15.0); Lymphocyte # 0.33 X10^3/ul (0.83-4.51); Lymphocyte % 3.5 % (19-41); Mean Corp Hgb Conc 31.4 g/dL (32-36); Mean Corpuscular Hgb 30.7 pg (27.0-32.0); Mean Corpuscular Volume 97.7 fL (81-99); Monocyte# 0.12 X10^3/uL; Monocyte% 1.3 % (0-10); NRBC Flagged by Analyzer 0.9 % (0-5); Neutrophil % 93.3 % (47-70); POSITIVE DIFFERENTIAL YES; Platelet Count 195 K/mm3 (150-450); RBC Distribution Width CV 17.2 % (11.6-14.6); RBC Distribution Width SD 50.4 fl (35.1-43.9); Red Blood Count 2.64 M/mm3 (4.2-5.4); White Blood Count 9.3 K/mm3 (4.4-11.0)
--- NOTE | 2024-11-08 15:46 | CHAPLAIN ---
Type of Pastoral Visit _x__ Initial Visit ___ Follow-up Visit ___ On-call Visit ___ General Patient Visit ___ Spiritual Assessment ___ Family Conference ___ Bereavement ___ Rapid Response ___ Code Blue ___ Other (describe below) Pastoral Care Referral From _x__ Patient _x__ Family ___ Nurse ___ Physician ___ Bacon Slicer ___ Costume Maker ___ Other (describe below) Sacrament/Intervention _x__ Active listening ___ Anointing ___ Jehovah'S Witness ___ Bereavement ___ Communion ___ Nikki exploration ___ ___ Life review _x__ Prayer ___ Reconciliation ___ Sacrament of Sick _x__ Supportive presence ___ Wedding ___ Other (describe below) Pastoral Comments patient is to have scope yet this afternoon if she can get into the schedule; pt is focused on the inability to drink anything and asks some questions; daughter comes into the room and gives more information and also gives more explanation to her mother; pt is of the Jehovah'S Witness nikki and welcomes a prayer; supportive presence and calming assurance given as well
[2024-11-08] MEDS: 0.9% Normal Saline (1000mL) 1,000 ML 75 ML IV (17:35)
[2024-11-08] MEDS: Vancomycin Trough/Random Due 1 LAB MC (17:35)
--- NOTE | 2024-11-08 19:36 | PHA.PHARE_ITS ---
Consult Antibiotic Management Pharmacy has been consulted to manage selected antibiotic: Vancomycin Type of Intervention Type of Consult: Follow-up Suspected Infection Suspected Infection: Pneumonia Prior Doses of Antibiotics Prior Doses of Antibiotics Received/Current Regimen: received vanc 2000mg IV x1 on 11/07 at 12:47 Labs Labs: Sodium 139 mmol/L (133-145) 11/07/24 09:30 Potassium 3.4 mmol/L (3.3-5.1) 11/07/24 09:30 Chloride 99 mmol/L (98-108) 11/07/24 09:30 Carbon Dioxide 23.3 mmol/L (21.0-32.0) 11/07/24 09:30 Anion Gap 16 (5-15) H 11/07/24 09:30 BUN 76 mg/dL (4-19) H 11/07/24 09:30 Creatinine 2.01 mg/dL (0.70-1.20) H 11/08/24 06:40 Est GFR (MDRD) Non-Af 24 (>60) L 11/08/24 06:40 BUN/Creatinine Ratio 28.5 RATIO (10-20) H 11/07/24 09:30 Glucose 109 mg/dL (70-99) H 11/07/24 09:30 Random Vancomycin 17.0 ug/mL (0.0-15.0) H 11/08/24 18:13 Microbiology Microbiology: Microbiology 11/07/24 16:10 Nasal Secretion MRSA (PCR) - Final Meth. resistant Staph. aureus 11/07/24 15:25 Urine Catheter - Catheter Legionella Antigen - Final 11/07/24 15:25 Urine Catheter - Catheter Streptococcus pneumoniae Antigen (M - Final 11/07/24 09:35 Mucosa - Nose SARS-CoV-2, Influenza & RSV (PCR) - Final Dosing Weight Weight used for dosin.4 kg Estimated Creatinine Clearance Estimated Creatinine Clearance: 24 ml/min Goal Trough Goal Trough: 15-20 mcg/mL Pharmacy Plan for Drug Dosing Pharmacy Plan for Drug Dosing: The vanc random level drawn at 18:13 tonight was 17.0 mcg/ml. This is below 20 and patient's CrCl is now above 20 at 24 ml/min so will now start a maintenance dose of 750mg q24h per [facility] dosing chart. Will check a trough level before the 3rd dose on 11/10/24. Pharmacy Service will continue to monitor and adjust dosing as required. Follow-Up Labs Follow-Up Labs: Trough: Vancomycin Date/Time Labs Ordered Labs to be done on [date and time ordered]: 11/10/24 19:30
[2024-11-08] MEDS: Vancomycin HCl 750 MG in 0.9% Normal Saline (250mL Bag) 250 ML 250 MG IV (19:51)
[2024-11-08] MEDS: Latanoprost 0.005% 1 Bottle 1 DRP OPHTHALMIC (21:40)
[2024-11-08] MEDS: DiphenhydrAMINE 12.5 MG/5 ML UDC PO (21:41)
[2024-11-08] MEDS: Gabapentin 100 MG Capsule PO (21:42)
[2024-11-08] MEDS: Isosorbide Mononitrate 30 MG Tablet PO (21:44)
[2024-11-09] VITALS (15 sets, daily range): BP systolic 64–161; BP diastolic 36–77; PULSE 70–97; RESP 6–24; TEMP 36.2–36.9; O2SAT 94–100; BMI 36.2
[2024-11-09 05:43] LABS: Absolute Lymphocyte Count 0.52 X10^3/uL (0.83-4.51); Basophil# 0.02 X10^3/uL; Basophil% 0.2 % (0-1); Hematocrit 24.3 % (37-47); Hemoglobin 7.7 g/dL (12.0-15.0); Lymphocyte # 0.52 X10^3/ul (0.83-4.51); Lymphocyte % 4.3 % (19-41); Mean Corp Hgb Conc 31.7 g/dL (32-36); Monocyte# 1.42 X10^3/uL; Monocyte% 11.6 % (0-10); NRBC Flagged by Analyzer 0.4 % (0-5); Neutrophil # 9.99 X10^3/uL (2.7-7.7); Neutrophil % 81.7 % (47-70); POSITIVE DIFFERENTIAL YES; Platelet Count 228 K/mm3 (150-450); RBC Distribution Width CV 17.5 % (11.6-14.6); RBC Distribution Width SD 51.5 fl (35.1-43.9); Red Blood Count 2.48 M/mm3 (4.2-5.4); White Blood Count 12.2 K/mm3 (4.4-11.0)
[2024-11-09 06:23] LABS: Anion Gap 12 (5-15); BUN 64 mg/dL (4-19); BUN/Creat Ratio 38.4 RATIO (10-20); Calcium,Total 9.3 mg/dL (7.6-11.0); Carbon Dioxide 22.9 mmol/L (21.0-32.0); Chloride 111 mmol/L (98-108); Creatinine, Serum 1.67 mg/dL (0.70-1.20); EST Glomerular Filtration Rate 30 (>60); Estimated Creatinine Clearance 28.67 ml/min (50-250); Glucose 121 mg/dL (70-99); Potassium 2.8 mmol/L (3.3-5.1); Sodium Level 146 mmol/L (133-145)
[2024-11-09] MEDS: 0.9% Normal Saline (1000mL) 1,000 ML 75 ML IV (06:24)
[2024-11-09] MEDS: Ipratropium/Albuterol Sulfate 3 ML AMPUL.NEB INHALATION ×2 (07:50→20:01)
--- NOTE | 2024-11-09 08:09 | PN.HOSP_ITS ---
Reason for Visit Reason for Visit: Diagnoses Pneumonia, unspecified organism (11/07/24) Objective Data Objective Data Vital Signs: Vital Signs Temp Pulse Resp BP Pulse Ox O2 Del Method O2 Flow Rate 97.9 F 77 20 H 150/66 H 99 Nasal Cannula 2 11/09/24 07:33 11/09/24 07:33 11/09/24 07:33 11/09/24 07:33 11/09/24 07:33 11/09/24 07:33 11/09/24 07:33 Oxygen Flow Rate (L/min) 2 Oxygen Delivery Method Nasal Cannula Weight: 211 lb 3.245 oz Body Mass Index (BMI) 36.2 Intake & Output: Intake and Output for Last 24 Hours 11/07/24 11/08/24 11/09/24 23:59 23:59 23:59 Intake Total 1760 / 1760 605 / 605 1011.25 / 1011.25 Output Total 500 / 500 Balance 1260 / 1260 605 / 605 1011.25 / 1011.25 Lab / Micro Data 11/09/24 04:50 11/09/24 04:50 Labs: Laboratory Results - last 24 hr 11/08/24 06:40: WBC 9.3, RBC 2.64 L, Hgb 8.1 L, Hct 25.8 L, MCV 97.7, MCH 30.7, MCHC 31.4 L, RDW Std Deviation 50.4 H, RDW Coeff of Alexandra 17.2 H, Plt Count 195, I mmature Gran % (Auto) 1.700 H, Neut % (Auto) 93.3 H, Lymph % (Auto) 3.5 L, [place] % (Auto) 1.3, Eos % (Auto) 0.0, Baso % (Auto) 0.2, Absolute Neuts (auto) 8.7 H, Absolute Lymphs (auto) 0.33 L, Nucleated RBC % 0.9, Creatinine 2.01 H, Estim Creat Clear Calc 23.76 L, Est GFR (MDRD) Non-Af 24 L, Procalcitonin 5.72 H 11/08/24 18:13: Random Vancomycin 17.0 H 11/09/24 04:50: WBC 12.2 H, RBC 2.48 L, Hgb 7.7 L, Hct 24.3 L, MCV 98.0, MCH 31.0, MCHC 31.7 L, RDW Std Deviation 51.5 H, RDW Coeff of Alexandra 17.5 H, Plt Count 228, MPV TNP, Immature Gran % (Auto) 2.200 H, Neut % (Auto) 81.7 H, Lymph % (Auto) 4.3 L, [place] % (Auto) 11.6 H, Eos % (Auto) 0.0, Baso % (Auto) 0.2, A bsolute Neuts (auto) 10.0 H, Absolute Lymphs (auto) 0.52 L, Nucleated RBC % 0.4, Sodium 146 H, Potassium 2.8 L, Chloride 111 H, Carbon Dioxide 22.9, Anion Gap 12, BUN 64 H, Creatinine 1.67 H, Estim Creat Clear Calc 28.67 L, Est GFR (MDRD) Non-Af 30 L, BUN/Creatinine Ratio 38.4 H, Glucose 121 H, Calcium 9.3 Micro: Microbiology 11/07/24 16:10 Nasal Secretion MRSA (PCR) - Final Meth. resistant Staph. aureus 11/07/24 15:25 Urine Catheter - Catheter Legionella Antigen - Final 11/07/24 15:25 Urine Catheter - Catheter Streptococcus pneumoniae Antigen (M - Final 11/07/24 09:35 Mucosa - Nose SARS-CoV-2, Influenza & RSV (PCR) - Final Rhythm Strip Rhythm Strip: A-fib Rate: 61 Ectopy: None Physical Exam Narrative Seen and examined Patient n.p.o. for EGD. Shortness of breath is better. Patient has some aspiration and speech therapist saw the patient. Was evaluated by speech therapist with MBS which showed esophageal retention and vomiting after 4 sips and 2 bites. Physical exam General: Awake, alert, oriented x3, Cooperative. Frail and fatigued HEENT: Atraumatic, PERRLA, EOMI, Normocephalic Oral: Oral mucosa dry. No Gingival or Mucosal Lesions/ Ulcerations Neck: Supple, No JVD, Negative Carotid Bruits Chest wall/Lungs: Air entry severely diminished in bilateral lung bases. Bilateral coarse crepitation Cardiovascular: Irregular rhythm, Normal S1, Normal S2, No M/G/R Abdomen: Bowel Sounds Present, Soft, Non Tender, Non-Distended : No dysuria. No renal angle tenderness. No suprapubic tenderness. Extremities: No edema, Capillary Refill Less than 3 Seconds Skin: No rashes, No breakdown Musculoskeletal: Bilateral TKR. No Tenderness to Palpation of Joints or Extremities Neurological: Cranial nerves II-XII grossly intact, DTR 2+/4. No acute focal neurological deficit. Psych/Mental Status: Flat affect, dementia Assessment & Plan Assessment/Plan (1) Pneumonia: PLAN: Plan This 84-year-old female being admitted for pneumonia and hypoxia 1. SARS due to left lower lobe, healthcare associated pneumonia/aspiration pneumonia: Patient is being admitted in PCU. She was tachypneic, hypoxia, leukocytosis, 2.8% immature granulocytes, suggestive of left shift but no hypotension or lactic acidosis. Does not meet criteria for sepsis. Chest CT without contrast initially reviewed and shows left lower lobe infiltrate and chronic changes of COPD, official report pending. Patient started on IV vancomycin and Zosyn. Pneumonia workup including MRSA nasal screen ordered. Triple PCR for SARS-CoV-2, flu and RSV are negative Patient was last admitted in September for community-acquired pneumonia. 11/08: MRSA nasal screen all came positive. Patient on vancomycin since admission. [employer] Control Party consulted and reviewed. Left lower lobe pneumonia most likely due to aspiration pneumonia. Patient also had esophageal retention and vomiting during modified barium swallow. Made n.p.o. GI consulted. 11/09: ID consult requested to plan of discharge antibiotic whether IV vancomycin or linezolid Dysphagia: EGD today, 11/09/2024. Recommended to continue medication. Advance diet as recommended by speech therapist. Impressions : - Abnormal esophageal motility, consistent with achalasia. Biopsied. Dilated. - Chronic gastritis. - No gross lesions in the duodenal bulb. 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 Patient admitted with 2.67, currently improving 1.67. Serum potassium low 2.8. Potassium is getting replaced. Hypernatremia and hyperchloremia. D5W ordered. Patient n.p.o. but it diet as per speech therapist after EGD. Monitor intake and output. 2. Mild COPD exacerbation due to pneumonia: COPD exacerbation as evidenced by increased shortness of breath, dyspnea and cough. Patient is being managed on scheduled bronchodilator, IV Solu-Medrol, Mucinex, incentive spirometry and Pep. 11/08: COPD exacerbation got much better. IV Solu-Medrol discontinued. Risk of worsening of pneumonia on steroid therefore steroid discontinued 3. Unclear whether new onset or paroxysmal A-fib: Patient's daughter said she had A-fib in the past. Twelve-lead EKG shows A-fib at 61 beats minute. Patient not on anticoagulant but on baby aspirin. Discussed the risk, benefit and monitoring of anticoagulant patient daughter agreed. Low-dose Eliquis 2.5 mg twice daily started. 4. CAD status post CABG x 2: Patient does not have any chest pain but sometimes she had chest soreness from coughing. Baby aspirin was held as patient is started on Eliquis. 2 troponins 133, 122 decreasing trend suggestive of increased cardiac demand from pneumonia 11/08: Even after communication with the nursing staff not to do third troponin, it was ordered probably by night nurse and third troponin is the lowest 103 therefore it is futile test. Mildly irritated due to increased cardiac demand. 5. Chronic HFrEF and HFpEF: Last echo January 2023 showed EF 45%, LA severely enlarged. As patient's BP on lower side therefore will hold antihypertensive medications including Lasix. BNP elevated but chest x-ray and chest CT did not show pulmonary edema. 6. Dyslipidemia: On simvastatin continued. 7. Dementia with behavioral disturbances: 8. Hypertension: As mentioned above. Hold antihypertensive medications DVT prophylaxis, high risk: On low-dose Eliquis. Living will/advanced directive/end of life care: Patient does have living will or advanced directive. After discussion of benefits/risks procedures involved with full code, DNR CC arrest and DNR CC, the patient and her daughter POA present in the ED and agreed for DNR CC arrest with no intubation. Patient doesn't want artificial life support including intubation, tube feed, ventilator and/chest compression, central venous catheter, vasopressor and DC shock if needed Microbiology Past 72 Hours 11/07/24 16:10 Nasal Secretion MRSA (PCR) - Final Meth. resistant Staph. aureus 11/07/24 15:25 Urine Catheter - Catheter Legionella Antigen - Final 11/07/24 15:25 Urine Catheter - Catheter Streptococcus pneumoniae Antigen (M - Final 11/07/24 09:35 Mucosa - Nose SARS-CoV-2, Influenza & RSV (PCR) - Final Laboratory Results 11/07/24 11:20: Total Bilirubin 0.32, Direct Bilirubin 0.21, AST 19, ALT < 5, Alkaline Phosphatase 71, Total Creatine Kinase 94, Total Protein 6.3, Albumin 3.4, Globulin 2.9 11/07/24 15:25: Urine Color Yellow, Urine Clarity Clear, Urine pH 5.0, Ur Specific [place] 1.010, Urine Protein 30 H, Urine Glucose (UA) Normal, Urine Ketones Negative, Urine Occult Blood Negative, Urine Nitrite Negative, Urine Bilirubin Negative, Urine Urobilinogen Normal, Ur Leukocyte Esterase Negative, Urine RBC 0 SEEN, Urine WBC 0-5 SEEN, Ur Squamous Epith Cells 0 SEEN, Urine Bacteria RARE, Urine Mucus 0 SEEN 11/07/24 22:04: Troponin T Hi Sens 4Hr 103 H* 11/08/24 06:40: Creatinine 2.01 H, Estim Creat Clear Calc 23.76 L, Est GFR (MDRD) Non-Af 24 L, Procalcitonin 5.72 H, Random Vancomycin 21.0 H Charges/Coding Visit Charges Inpatient E&M: 19600 Subs Hosp L2
--- NOTE | 2024-11-09 08:27 | PCM.PN.TICU ---
Objective Data Objective Data Vital Signs: Vital Signs Last response Temperature 36.6 C 11/09/24 07:33 Temperature Source Temporal 11/09/24 07:33 Pulse Rate 77 11/09/24 07:33 Pulse Strength Normal (2+) 11/08/24 22:00 Respiratory Rate 20 H 11/09/24 07:33 Respiratory Effort Normal, Non-Labored 11/09/24 03:59 Respiratory Depth Normal 11/09/24 03:59 Respiratory Pattern Normal 11/09/24 03:59 Blood Pressure 150/66 H 11/09/24 07:33 Blood Pressure Mean 94 11/09/24 07:33 Blood Pressure Source Monitor 11/09/24 07:33 Blood Pressure Position Supine 11/09/24 07:33 Blood Pressure Location Right Arm 11/09/24 07:33 Pulse Ox 99 11/09/24 07:33 Oxygen Delivery Method Nasal Cannula 11/09/24 07:33 Oxygen Flow Rate (L/min) 2 11/09/24 07:33 I&O: I&O Last 24 Hours 11/08/24 11/08/24 11/09/24 11:59 23:59 11:59 Intake Total 50 / 605 555 / 605 1011.25 / 1011.25 Balance 50 / 605 555 / 605 1011.25 / 1011.25 I&O: Total Stay 11/07/24 08:56 thru 11/09/24 06:24 Intake Total 3376.25 Output Total 500 Balance 2876.25 Current Meds Ordered / Administered: Current meds ordered / Administered Generic Name Dose Route Start Last Admin Trade Name Freq PRN Reason Stop Dose Admin Acetaminophen 1,000 mg 11/07/24 12:49 Acetaminophen 500 Mg Tablet PO Q8H PRN PRN Pain Score 1-10 Albuterol/Ipratropium 3 ml 11/07/24 13:30 11/08/24 19:52 Ipratropium/Albuterol Sulfate 3 Ml Ampul.Neb INHALATION 3 ml Q6HWA.RT JOSEY Administration Apixaban 2.5 mg 11/07/24 12:50 11/08/24 21:41 Apixaban 2.5 Mg Tablet (Wch) PO Not Given BID JOSEY Artificial Tears 1 drp 11/07/24 13:15 Carboxymethylcellulose Sodium 15 Ml Ophth Drops EACH EYE Q2H PRN DRY EYES Atorvastatin Calcium 10 mg 11/07/24 22:00 11/08/24 21:41 Atorvastatin Calcium 10 Mg Tablet PO Not Given QHS [facility] Benzonatate 200 mg 11/07/24 14:00 11/09/24 05:46 Benzonatate 100 Mg Capsule PO Not Given TID JOSEY Bisacodyl 10 mg 11/07/24 12:49 Bisacodyl 10 Mg Suppository RC DAILY PRN CONSTIPATION Brimonidine Tartrate 1 drp 11/08/24 10:00 11/08/24 09:26 Brimonidine 0.2% 5ml Bottle OPHTHALMIC 1 drp DAILY JOSEY Administration Calamine/Phenol 1 applic 11/07/24 22:00 11/08/24 21:41 Menthol/Lanolin/Calamine/Znox 113 Gm Tube TOPICAL 1 applic BID JOSEY Administration Protocol Carbidopa/Levodopa 2 tablet 11/07/24 16:00 11/09/24 05:47 Carbidopa/Levodopa 25/100 Tablet PO Not Given TIDAC [facility] Diphenhydramine HCl 12.5 mg 11/07/24 13:12 11/08/24 21:41 Diphenhydramine 12.5 Mg/5 Ml Udc PO 12.5 mg DAILY PRN Administration allergy symptoms Ferrous Sulfate 325 mg 11/08/24 12:00 11/08/24 13:40 Ferrous Sulfate 325 Mg Tablet PO Not Given Q48@1200 JOSEY Gabapentin 100 mg 11/07/24 22:00 11/08/24 21:42 Gabapentin 100 Mg Capsule PO 100 mg QHS [facility] Administration Guaifenesin 600 mg 11/07/24 22:00 11/08/24 21:42 Guaifenesin 600 Mg Tablet PO Not Given BID [facility] Vancomycin IV-PHARMACY TO DOSE 500 mls @ 250 mls/hr 11/07/24 13:00 1 each/ Sodium Chloride IV PRN PRN RX TO DOSE Protocol Sodium Chloride 1,000 mls @ 75 mls/hr 11/08/24 17:10 11/09/24 06:24 IV 75 mls/hr .[id number] JOSEY Administration Vancomycin HCl 750 mg/ Sodium 265 mls @ 250 mls/hr 11/08/24 20:00 11/08/24 20:55 Chloride IV Infused Q24H JOSEY Infusion Pantoprazole Sodium 40 mg/ 110 mls @ 330 mls/hr 11/09/24 10:00 Sodium Chloride IV Q24 [facility] Piperacillin Sod/Tazobactam 50 mls @ 12.5 mls/hr 11/09/24 08:30 Sod 3.375 gm/ Sodium Chloride IV Q8 [facility] Isosorbide Mononitrate 30 mg 11/08/24 10:00 11/08/24 21:44 Isosorbide Mononitrate 30 Mg Tablet PO 30 mg BID [facility] Administration Protocol Latanoprost 1 drp 11/07/24 21:00 11/08/24 21:40 Latanoprost 0.005% 1 Bottle OPHTHALMIC 1 drp QPM [facility] Administration Montelukast Sodium 10 mg 11/08/24 10:00 11/08/24 11:04 Montelukast 10 Mg Tablet PO Not Given DAILY [facility] Nitroglycerin 0.4 mg 11/07/24 12:49 Nitroglycerin (Inpatient Use) 0.4 Mg Tab.Subl SL Q5M PRN CHEST PAIN Polyethylene Glycol 17 gm 11/08/24 10:00 11/08/24 11:04 Polyethylene Glycol 3350 17 Gm Packet PO Not Given DAILY [facility] Sertraline HCl 100 mg 11/08/24 10:00 11/08/24 11:04 Sertraline 100 Mg Tablet PO Not Given DAILY [facility] Trazodone HCl 50 mg 11/07/24 22:00 11/08/24 21:43 Trazodone 50 Mg Tablet PO Not Given QHS [facility] Vancomycin Protocol 1 lab 11/10/24 17:30 Vancomycin Trough/Random Due MC 11/10/24 21:30 DAILY [facility] Lab / Micro Data 11/09/24 04:50 11/09/24 04:50 Labs: Laboratory Results - last 24 hr 11/08/24 06:40: WBC 9.3, RBC 2.64 L, Hgb 8.1 L, Hct 25.8 L, MCV 97.7, MCH 30.7, MCHC 31.4 L, RDW Std Deviation 50.4 H, RDW Coeff of Alexandra 17.2 H, Plt Count 195, Immature Gran % (Auto) 1.700 H, Neut % (Auto) 93.3 H, Lymph % (Auto) 3.5 L, [place] % (Auto) 1.3, Eos % (Auto) 0.0, Baso % (Auto) 0.2, Absolute Neuts (auto) 8.7 H, Absolute Lymphs (auto) 0.33 L, Nucleated RBC % 0.9, Creatinine 2.01 H, Estim Creat Clear Calc 23.76 L, Est GFR (MDRD) Non-Af 24 L, Procalcitonin 5.72 H 11/08/24 18:13: Random Vancomycin 17.0 H 11/09/24 04:50: WBC 12.2 H, RBC 2.48 L, Hgb 7.7 L, Hct 24.3 L, MCV 98.0, MCH 31.0, MCHC 31.7 L, RDW Std Deviation 51.5 H, RDW Coeff of Alexandra 17.5 H, Plt Count 228, MPV TNP, Immature Gran % (Auto) 2.200 H, Neut % (Auto) 81.7 H, Lymph % (Auto) 4.3 L, [place] % (Auto) 11.6 H, Eos % (Auto) 0.0, Baso % (Auto) 0.2, Absolute Neuts (auto) 10.0 H, Absolute Lymphs (auto) 0.52 L, Nucleated RBC % 0.4, Sodium 146 H, Potassium 2.8 L, Chloride 111 H, Carbon Dioxide 22.9, Anion Gap 12, BUN 64 H, Creatinine 1.67 H, Estim Creat Clear Calc 28.67 L, Est GFR (MDRD) Non-Af 30 L, BUN/Creatinine Ratio 38.4 H, Glucose 121 H, Calcium 9.3 Micro: Microbiology 11/07/24 16:10 Nasal Secretion MRSA (PCR) - Final Meth. resistant Staph. aureus Rhythm Strip Rhythm Strip: A-fib Rate: 61 Ectopy: None Assessment and Plan . Assessment and plan: Subjective: No acute events o/n. Pt still reports some dyspnea this AM, remains on 2L NC. NPO for EGD currently Physical Exam: Gen - NAD, obese, elderly HEENT - MMM. Sclera anicteric Resp - Diminished BS. Breathing nonlabored CV - RRR. No m/g/r Abd - Soft, NT, ND Ext - No c/c/e. Skin - No rashes? Neuro - Grossly nonfocal. Awake, can answer some questions appropriately. +baseline dementia I have reviewed the pertinent vital sign, laboratory, and imaging data. ASSESSMENT: # Acute hypoxic respiratory failure # PNA - possible aspiration vs MRSA? # Dysphagia # COPD # Hypernatremia # LANDON on CKD # Paroxsymal Afib # HFrEF # CAD s/p CABG # Anemia # Dementia PLAN: -On 2L NC, wean to keep sats > 90%. Encourage IS, mobilization as tolerated -Empiric vanc/zosyn, f/u Cx. MRSA positive. Procal elevated -GI consulted for EGD, pending this AM -Cont ST eval, aspiration precautions -Budesonide, duonebs. Low threshold for restarting systemic steroids if worsening wheezing/bronchospasm -Can consider adding CPT/mucomyst if worsening mucus secretions -Switch IVF to D5-1/2NS given mild worsening hyperNa -Monitor for worsening Afib/RVR. Started on eliquis per IM -Replete electrolytes PRN FEN/GI: NPO pending speech eval, aspiration precautions Proph DVT/GI: Eliquis, protonix Code status: DNR The entirety of this encounter was done via telemedicine using both audio and video. Consent was obtained.
[2024-11-09] MEDS: Pantoprazole Sodium 40 MG in 0.9% Normal Saline (100mL MB+) 100 ML 330 MG IV (09:15)
[2024-11-09] MEDS: Piperacil/Tazobactam 3.375 GM in 0.9% Normal Saline (50mL MB+) 50 ML IV ×3 (10:15→21:01)
[2024-11-09] MEDS: Dext 5%-0.45% NS 1,000 ML 75 ML IV (11:11)
[2024-11-09] MEDS: BRIMONIDINE 0.2% 5ML BOTTLE 1 DRP OPHTHALMIC (11:43)
[2024-11-09] MEDS: Menthol/Lanolin/Calamine/Znox 113 GM Tube 1 APPLIC TOPICAL ×2 (11:43→21:51)
[2024-11-09] MEDS: Potassium Chloride 10mEq/100mL 10 MEQ/100 ML IV.SOLN. 100 MEQ IV BOLUS ×4 (11:43→16:31)
--- NOTE | 2024-11-09 12:12 | EKG12_ITS ---
Test Reason : PRE OP Blood Pressure : */* mmHG Vent. Rate : 65 BPM Atrial Rate : * BPM P-R Int : * ms QRS Dur : 110 ms QT Int : 410 ms P-R-T Axes : * 25 -75 degrees QTcB Int : [address] & T wave abnormality, consider inferior ischemia Abnormal ECG When compared with ECG of 07-Nov-2024 09:29, MANUAL COMPARISON REQUIRED DATA IS UNCONFIRMED Confirmed by TARIQ PAYNE, LIZA ([id number]), editor producer ALEXANDER MCDOWELL ([id number]) on 11/10/2024 5:53:24 AM Referred By: Apollo Dinh Confirmed By: LIZA POTTER MD
--- NOTE | 2024-11-09 12:36 | PCM.PRE.AN2 ---
ASA Classification* ASA Classification ASA Classification: 3 Assessment & Plan Anesthesia* Anesthesia Assessment Anesthesia Assessment: Discussed sedation and/or anesthesia options, risks, benefits, and alternatives with patient/parents/legal guardian/POA. Questions invited. The patient/parents/legal guardian/POA seems to understand and agrees to proceed with anesthesia plan. Reviewed the physical assessment, medical history, allergy history and patient home medications list prior to surgery/procedure/anesthetic and documented any changes. Performed airway and anesthesia risk assessments. Anesthesia Type Anesthesia Type: MAC History Source History Obtained from:: Patient and Chart Anesthesia Focused Assessment* Temperature: 98.4 F Pulse Rate: 72 Blood Pressure: 155/75 Respiratory Rate: 18 Pulse Ox: 98 Oxygen Delivery Method: Nasal Cannula Oxygen Flow Rate (L/min): 2 Airway Assessment Mouth opens: >3 cm Mallampati Score: II Teeth Condition: Dentures (Full upper and lower dentures are out.) Neck Range of motion (ROM): Limited ROM Focused Labs Anesthesia Preop lab: CBC WBC 12.2 K/mm3 (4.4-11.0) H 11/09/24 04:50 11/09/24 RBC 2.48 M/mm3 (4.2-5.4) L 11/09/24 04:50 11/09/24 Hgb 7.7 g/dL (12.0-15.0) L 11/09/24 04:50 11/09/24 Hct 24.3 % (37-47) L 11/09/24 04:50 11/09/24 Plt Count 228 K/mm3 (150-450) 11/09/24 04:50 11/09/24 CHEMISTRY Potassium 2.8 mmol/L (3.3-5.1) L 11/09/24 04:50 11/09/24 Sodium 146 mmol/L (133-145) H 11/09/24 04:50 11/09/24 Magnesium 2.4 mg/dL (1.5-2.2) H 11/07/24 09:30 11/07/24 Phosphorus 4.1 mg/dL (2.5-4.9) 01/25/23 13:53 01/25/23 BUN 64 mg/dL (4-19) H 11/09/24 04:50 11/09/24 Creatinine 1.67 mg/dL (0.70-1.20) H 11/09/24 04:50 11/09/24 Glucose 121 mg/dL (70-99) H 11/09/24 04:50 11/09/24 TSH 2.010 uIU/mL (0.300-4.200) 11/07/24 09:30 11/07/24 COAG PT 14.0 SECONDS (11.7-14.9) 11/07/24 11:13 11/07/24 Pre-Assessment Diagnosis/Proposed Procedure Planned Operative Procedure(s): Esophagogastroduodenoscopy with dilatation. Anesthesia History Anesthesia History - nurse first assist: Anesthesia History - nurse first assist Hx Hospitalization No 11/14/22 10:36 Any Problems With Anesthesia No 11/09/24 09:57 Cholinesterase deficiency No 11/09/24 09:57 You/Your Family Experience No 11/09/24 09:57 fever (hyperthermia) with Relationship Recent Exposure to Contagious No 11/09/24 09:57 Disease Does patient have nerve No 11/09/24 09:57 stimulator Patient instructed to have No 11/09/24 09:57 device shut off --Does patient have Pacemaker No 11/09/24 10:03 or ICD? When Was Last Pacemaker Check QUESTION #4 FULL TEXT: You/Your Family Experience fever (hyperthermia) with Anesthesia Last Oral Intake Last Oral intake: Last Oral Intake NPO since 00:00 11/09/24 10:03 Meds taken in AM with sips of water? Meds patient instructed to take am of surgery PONV PONV - nurse first assist: PONV - nurse first assist Female HX of Motion Sickness HX of N/V After Surgery Non-Smoker Duration of Surgery greater than 60 minutes Number of Risk Factors PONV Score Height & Weight Height & Weight: Anesthesia: Height & Weight Height 5 ft 4 in 11/09/24 10:03 Weight: 95.8 kg 11/09/24 10:03 Body Mass Index (BMI) 36.2 11/09/24 10:03 Respiratory Assessment Respiratory Assessment - nurse first assist: Respiratory Tract Infection Hx - nurse first assist Hx Respiratory Tract Infection No 11/09/24 09:57 Any additional information?: Yes Hx Respiratory Tract Infection: Yes (Patient has current pneumonia in the left lung.) STOP Sleep Apnea STOP Sleep Apnea - nurse first assist: STOP Sleep Apnea - nurse first assist Hx Hypertension Yes 11/08/24 15:28 Hx Sleep Apnea No 11/07/24 13:35 CPAP No 11/07/24 13:35 BIPAP No 11/07/24 13:35 Do you snore loudly (louder No 11/07/24 13:35 than talking or can be heard Do you often feel tired/ No 11/07/24 13:35 fatigued/ sleepy during daytime? Has anyone observed you stop No 11/07/24 13:35 breathing during sleep? STOP Results Negative 11/07/24 13:35 QUESTION #5 FULL TEXT : Do you snore loudly (louder than talking or can be heard through closed doors)? Tobacco Use History Tobacco Use History - nurse first assist: Tobacco Use History - nurse first assist Tobacco Use Non-smoker 01/04/21 10:14 Smoking Status Former smoker 11/07/24 13:35 Hx Tobacco Use No 11/07/24 13:35 Years Smoking Packs Smoked per Day Smoking Cessation Date was No - quit smoking greater 11/07/24 13:35 within the last 15 years than 15 years ago Hx Smoking Cessation Date Hx Smoking Cessation Counseling Hematologic Medial History Hematologic Hx - nurse first assist: Hematologic Medical Hx - manager economic Hx of Blood Transfusion Hx of Transfusion in last 3 Months Date of Last Transfusion (if within last 3 months) Ever experience any problems with transfusion(s)? Specify any problems Hx of Preganancy in last 3 Months Nurse Filling Out Transfusion & Questions: Date: Time: Patient unable to answer at Yes 11/07/24 13:35 this time (ie. confused, unrespo /Reproduction History /Reproductive History - nurse first assist: /Reproductive Hx- nurse first assist Hx Now No 11/09/24 09:57 Gestational Age (in weeks): EDC: Hx Hx Para Hx Section SAB No 11/09/24 09:57 Active Medications Active Medications: Current Medications Generic Name Dose Route Start Last Admin Trade Name Freq PRN Reason Stop Dose Admin Acetaminophen 1,000 mg 11/07/24 12:49 Acetaminophen 500 Mg Tablet PO Q8H PRN PRN Pain Score 1-10 Albuterol/Ipratropium 3 ml 11/07/24 13:30 11/09/24 07:50 Ipratropium/Albuterol Sulfate 3 Ml Ampul.Neb INHALATION 3 ml Q6HWA.RT JOSEY Administration Apixaban 2.5 mg 11/07/24 12:50 11/08/24 21:41 Apixaban 2.5 Mg Tablet ([facility]) PO Not Given BID JOSEY Artificial Tears 1 drp 11/07/24 13:15 Carboxymethylcellulose Sodium 15 Ml Ophth Drops EACH EYE Q2H PRN DRY EYES Atorvastatin Calcium 10 mg 11/07/24 22:00 11/08/24 21:41 Atorvastatin Calcium 10 Mg Tablet PO Not Given QHS JOSEY Benzonatate 200 mg 11/07/24 14:00 11/09/24 05:46 Benzonatate 100 Mg Capsule PO Not Given TID JOSEY Bisacodyl 10 mg 11/07/24 12:49 Bisacodyl 10 Mg Suppository RC DAILY PRN CONSTIPATION Brimonidine Tartrate 1 drp 11/08/24 10:00 11/09/24 11:43 Brimonidine 0.2% 5ml Bottle OPHTHALMIC 1 drp DAILY JOSEY Administration Calamine/Phenol 1 applic 11/07/24 22:00 11/09/24 11:43 Menthol/Lanolin/Calamine/Znox 113 Gm Tube TOPICAL 1 applic BID JOSEY Administration Protocol Carbidopa/Levodopa 2 tablet 11/07/24 16:00 11/09/24 12:33 Carbidopa/Levodopa 25/100 Tablet PO Not Given TIDAC JOSEY Diphenhydramine HCl 12.5 mg 11/07/24 13:12 11/08/24 21:41 Diphenhydramine 12.5 Mg/5 Ml Udc PO 12.5 mg DAILY PRN Administration allergy symptoms Ferrous Sulfate 325 mg 11/08/24 12:00 11/08/24 13:40 Ferrous Sulfate 325 Mg Tablet PO Not Given Q48@1200 JOSEY Gabapentin 100 mg 11/07/24 22:00 11/08/24 21:42 Gabapentin 100 Mg Capsule PO 100 mg QHS JOSEY Administration Guaifenesin 600 mg 11/07/24 22:00 11/09/24 12:32 Guaifenesin 600 Mg Tablet PO Not Given BID JOSEY Vancomycin IV-PHARMACY TO DOSE 500 mls @ 250 mls/hr 11/07/24 13:00 1 each/ Sodium Chloride IV PRN PRN RX TO DOSE Protocol Vancomycin HCl 750 mg/ Sodium 265 mls @ 250 mls/hr 11/08/24 20:00 11/08/24 20:55 Chloride IV Infused Q24H JOSEY Infusion Pantoprazole Sodium 40 mg/ 110 mls @ 330 mls/hr 11/09/24 10:00 11/09/24 09:55 Sodium Chloride IV Infused Q24 JOSEY Infusion Piperacillin Sod/Tazobactam 50 mls @ 12.5 mls/hr 11/09/24 08:30 11/09/24 10:52 Sod 3.375 gm/ Sodium Chloride IV Not Given Q8 JOSEY Dextrose/Sodium Chloride 1,000 mls @ 75 mls/hr 11/09/24 09:50 11/09/24 11:11 IV 75 mls/hr .[id number] JOSEY Administration Potassium Chloride 10 meq in 100 mls @ 100 mls/hr 11/09/24 10:30 11/09/24 11:43 IV BOLUS 11/09/24 14:29 100 mls/hr Q1H JOSEY Administration Isosorbide Mononitrate 30 mg 11/08/24 10:00 11/09/24 12:32 Isosorbide Mononitrate 30 Mg Tablet PO Not Given BID JOSEY Protocol Latanoprost 1 drp 11/07/24 21:00 11/08/24 21:40 Latanoprost 0.005% 1 Bottle OPHTHALMIC 1 drp QPM JOSEY Administration Montelukast Sodium 10 mg 11/08/24 10:00 11/09/24 12:32 Montelukast 10 Mg Tablet PO Not Given DAILY JOSEY Nitroglycerin 0.4 mg 11/07/24 12:49 Nitroglycerin (Inpatient Use) 0.4 Mg Tab.Subl SL Q5M PRN CHEST PAIN Polyethylene Glycol 17 gm 11/08/24 10:00 11/09/24 12:32 Polyethylene Glycol 3350 17 Gm Packet PO Not Given DAILY JOSEY Sertraline HCl 100 mg 11/08/24 10:00 11/09/24 12:32 Sertraline 100 Mg Tablet PO Not Given DAILY JOSEY Trazodone HCl 50 mg 11/07/24 22:00 11/08/24 21:43 Trazodone 50 Mg Tablet PO Not Given QHS JOSEY Vancomycin Protocol 1 lab 11/10/24 17:30 Vancomycin Trough/Random Due MC 11/10/24 21:30 DAILY JOSEY PFSH Medical History DNR (do not resuscitate) Hypoxia Pneumonia Epistaxis Congestive heart failure (CHF) COVID-19 COPD (chronic obstructive pulmonary disease) Acute respiratory failure with hypoxia COVID HFrEF (heart failure with reduced ejection fraction) Insomnia Depression Coronary artery disease Hyperlipidemia Acute UTI Weakness Wears glasses Wears dentures Post-menopausal Forgetfulness Depression Anxiety Lichen sclerosus Walker as ambulation aid Ambulates with cane Arthritis History of renal disease Low iron Pulmonary embolism DVT (deep venous thrombosis) Restless legs History of diverticulitis Shortness of breath on exertion Emphysema, unspecified COPD (chronic obstructive pulmonary disease) History of edema History of stress test History of echocardiogram Hypertension History of heart attack Chest pain Hx of intestinal obstruction History of left heart catheterization (LHC) (~11/05/21) Fatigue Angina pectoris Lung nodule Atherosclerotic heart disease of [place] coronary artery without angina pectoris Pure hypercholesterolemia Gout Essential hypertension Rectocele Anemia Constipation Diarrhea Asthma SOB (shortness of breath) Hx TIA/stroke w/o resid PVD (peripheral vascular disease) Other pulmonary embolism and infarction Osteoporosis Myalgia Lichen sclerosus Glaucoma Dysthymic disorder Dysplasia of cervix, unspecified Diverticulosis CKD (chronic kidney disease) stage 3, GFR 30-59 ml/min Scleroderma History of dermatomyositis Home Medications ?Medication ?Instructions ?Recorded ?Last Taken ?Type simvastatin 20 mg tablet 20 mg PO QHS CHOLESTEROL 10/10/15 07/03/23 History latanoprost 0.005 % eye drops 1 drp ophthalmic (eye) QPM GLAUCOMA 01/12/19 07/03/23 History nitroglycerin 0.4 mg sublingual 0.4 mg sublingual Q5-15M PRN CHEST 01/12/19 Unknown History tablet PAIN clobetasol 0.05 % topical cream 1 applic topical BID PSORIASES 06/26/21 Unknown History brimonidine 0.1 % eye drops 2 drp ophthalmic (eye) DAILY EYE 07/11/21 07/03/23 History IRRITATION calcipotriene 0.005 % topical cream 1 applic topical DAILY PRN 01/22/23 Unknown History PSORIASES montelukast 10 mg tablet 10 mg PO DAILY ALLERGIES 01/22/23 07/04/23 History netarsudil 0.02 % eye drops 1 drp EACH EYE DAILY GLAUCOMA 01/22/23 07/03/23 History (Rhopressa) acetaminophen 500 mg tablet 1,000 mg (2 x 500 mg) PO Q6H PRN 02/06/23 Unknown Rx PRN Pain Score 1-10 #0 tabs amlodipine 5 mg tablet 5 mg PO DAILY 30 days #30 tabs 02/06/23 07/04/23 Rx budesonide 160 mcg-glycopyr 9 2 inh inhalation DAILY 07/04/23 07/04/23 History mcg-formot 4.8 mcg/actuation HFA inhaler (Breztri Aerosphere) gabapentin 100 mg capsule 200 mg PO QHS 07/04/23 07/03/23 History trazodone 50 mg tablet 75 mg PO QHS 07/04/23 07/03/23 History benzonatate 100 mg capsule 100 mg PO TID PRN cough 10/13/23 Unknown History furosemide 40 mg tablet 40 mg PO DAILY 10/13/23 Unknown History isosorbide mononitrate 60 mg See Rx Instructions .Route 10/28/23 Unknown Rx tablet,extended release 24 hr .COMPLEX #60 TABLETS cholecalciferol (vitamin D3) 25 25 mcg PO QDAY 06/21/24 Unknown History mcg (1,000 unit) capsule carbidopa 25 mg-levodopa 100 mg 2 tab PO TID 10/16/24 Unknown History tablet sertraline 100 mg tablet 100 mg PO DAILY 10/16/24 Unknown History albuterol sulfate 90 mcg/actuation 2 puff inhalation Q8H PRN 10/24/24 Unknown History aerosol inhaler (Ventolin HFA) shortness of breath or wheezing aspirin 81 mg tablet,delayed 81 mg PO QDAY #90 tabs 10/24/24 Unknown Rx release (Adult Aspirin Regimen) bisacodyl 10 mg rectal suppository 10 mg MT QDAY PRN constipation 10/24/24 Unknown History cyanocobalamin (vitamin B-12) 100 100 mcg PO QDAY 10/24/24 Unknown History mcg tablet diphenhydramine HCl 25 mg tablet 12.5 mg PO DAILY PRN allergy 10/24/24 Unknown History symptoms docusate sodium 100 mg capsule 100 mg PO BID CONSTIPATION 10/24/24 Unknown History (Colace) ferrous sulfate 325 mg (65 mg 325 mg PO QDAY 10/24/24 Unknown History iron) tablet guaifenesin 600 mg tablet, 600 mg PO BID 10/24/24 Unknown History extended release 12 hr hydrocodone 7.5 mg-acetaminophen 1 tab PO .COMPLEX PRN pain 10/24/24 Unknown History 325 mg tablet lisinopril 20 mg tablet 20 mg PO BID HTN 10/24/24 Unknown History loperamide 2 mg tablet 2 mg PO ONCE PRN loose stool 10/24/24 Unknown History magnesium hydroxide 400 mg/5 mL 30 ml PO QDAY PRN constipation 10/24/24 Unknown History oral suspension (Milk of Magnesia) polyethylene glycol 3350 17 17 g PO QDAY 10/24/24 Unknown History gram/dose oral powder propylene glycol 0.6 % eye drops 1 drp ophthalmic (eye) BID-QID PRN 10/24/24 Unknown History (Systane Complete) dry eye(s) artificial 1 drp EACH EYE PRN 11/07/24 Unknown History tears(zyccyky-xqvxbynd-fofusza) 0.1 %-0.3 %-0.2 % eye drops ceftriaxone 1 gram solution for 1 g IM DAILY 11/07/24 Unknown History injection ondansetron HCl 4 mg tablet 4 mg PO Q6H 11/07/24 Unknown History Allergy/AdvReac Type Severity Reaction Status Date / Time metoprolol tartrate (From Allergy Unknown Verified 10/24/24 11:28 Lopressor) shellfish derived Allergy Anaphylaxis Verified 10/24/24 11:28 Sulfa (Sulfonamide Allergy Rash Verified 10/24/24 11:28 Antibiotics) Family History Father Heart disease Myocardial infarction Surgical History History of cholecystectomy History of coronary artery bypass surgery (~08/10/00) Hx of colonoscopy History of total right knee replacement History of left knee replacement History of intraocular lens implant Hx of heart bypass surgery Social History household members: spouse Smoking Status: Former smoker second hand exposure: Yes alcohol intake: never substance use type: does not use caffeine: Yes what type of physical activity do you participate in: none frequency: does not exercise Review of Systems (Anesthesia) ROS Narrative System reviewed and no additional complaints, except as documented.
--- NOTE | 2024-11-09 13:15 | EGD_PTH ---
PATIENT: TALIA BURT LOC: [facility] U#:[id number] AGE/SX: 84/F ROOM: [facility] RE11/07/[address]: Dr. Apollo Dinh MD : 1940 BED: 1 DIS: 11/12/2024 SPEC #: [id number] RECD: 11/10/24 10:25 STATUS: SAURAV REQ #: [id number] FELIX: 11/09/24 13:[address]: Timothy Barth DEPT: SURGICAL PATHOLOGY RECD BY: Kai Lawrence ENTERED: 11/10/24 10:25 SP TYPE: EGD BIOPSY OTHR DR: MD Dr. Adam Kang MD Dr. Andrew Naumoff, MD Dr. Bruce Arthur, MD Dr. Derek Brown, DO Dr. David P Myers, MD Dr. Edward Matheis, MD Dr. Gautam Baskaran, MD Dr. Yordanos Habtegebriel, MD Dr. Hemant Dand, MD Dr. Jose Ochoa, MD Dr. Justin Wong, MD Dr. Kimber Foust, MD Dr. Lamia Aljundi, MD Dr. Marisa Magana, MD Dr. Prakash Chand, MD Dr. Pritam Ghosh, MD Dr. Pavan Irukulla, MD Dr. Robert Leininger, MD Dr. Saad Farooqi, MD Dr. Sukhdeep Dhesi, DO Dr. Sujoy Gill, MD Dr. Soleyah Groves, MD Dr. Timothy Fernstrom, DO Dr. Vikram Anand, MD Dr. William Haden, MD Tissues: A - Esophagus, NOS Procedures: Special Stain Group I Surgery Specimen Level IV Alcian Blue/PAS (control) HEADER OPERATION: EGD with dilation, biopsy PRE-OP DIAGNOSIS: Dysphagia TISSUE SUBMITTED: A- Distal esophagus biopsy MICROSCOPIC DIAGNOSIS Distal esophagus, biopsy:Squamous and attached glandular mucosaNegative for dysplasiaAn Alcian blue PAS stain with appropriate controls is negative for goblet cellsKelly Lord MD, 11/20/24 MICROSCOPIC DESCRIPTION Slides are reviewed. GROSS DESCRIPTION A. Received in fixative is one container labeled with the patient's name and designated Distal esophagus biopsy. The specimen consists of two irregular fragments of light urbano soft tissue that in aggregate measure 0.8 x 0.4 x 0.2 cm. The specimen is totally submitted in one cassette. 11/10/2024 CPT:74147,10540 TC:4
--- NOTE | 2024-11-09 13:34 | PCM.PN.BLA ---
Progress Note 84-year-old female with history of CHF, COPD, coronary artery disease, pulmonary emboli, dementia and recent hospitalization for pneumonia as well as epistaxis which was ultimately transferred to [facility]. She is in assisted living. As she is presenting from assisted living for concern of worsening wet cough and low blood pressure. Patient was discharged from [facility] in 2 L of oxygen but has been back on room air last week. Over the weekend she had worsening respiratory symptoms again and was placed back on supplemental oxygen. She had a chest x-ray on Thursday per her granddaughter (3 days ago) which showed she still had pneumonia was put on antibiotics. She was noted to either have low blood pressure or low oxygen and was sent to the ER. No report of any fevers. Family notes that her coughing seems more wet and she has a rattle in her chest when she is breathing. Patient herself has no complaints and but is a poor historian. Per cardiology note on 10/24/2024 appears that patient did test positive for COVID-19 while at [facility]. Her proBNP was 22,915 and echocardiogram showed EF of 44% with moderate mitral valve regurgitation and R VSP of 30 mmHg. Hemoglobin at that time was 9.5. I was asked to see her in regarding her swallowing. She underwent evaluation by speech therapy and was determined to have oropharyngeal and esophageal dysphagia. Physical Exam Const alert, oriented x3, no apparent distress and healthy appearing General Appearance: cooperative GI normal to inspection, nondistended, normoactive bowel sounds, soft to palpation, non-tender and non-distended Percussion: normal to percussion Rectal Exam: deferred Assessment & Plan Assessment/Plan (1) Pneumonia: (2) Dysphagia: PLAN: She will undergo an upper endoscopy. Her family which is her power of insurance attorney was explained alternatives, risk and benefits include not withstanding bleeding, infection, sepsis, perforation, need for surgery . She will have an ASA of 3. Visit Charges Inpatient E&M: [id number] [facility] Hosp L3
--- NOTE | 2024-11-09 13:42 | PCM.POST.ANE ---
Anesthesia: Postop Eval I Current Vital Signs Temperature: 97.4 F Pulse Rate: 82 Blood Pressure: 102/77 Respiratory Rate: 6 Pulse Ox: 98 Oxygen Delivery Method: Nasal Cannula Oxygen Flow Rate (L/min): 2 Assessment Airway patent: Yes Spontaneous unlabored respirations: Yes Mental status: Asleep nausea: No Vomiting: No Anesthesia Complication: No Fluid Hydration Crystalloid volume administer (ml): 10 Total IV fluid infused: 10 Progress Note Anesthesia document: Postop Eval 1 completed: Yes
--- NOTE | 2024-11-09 14:15 | OP.EGD_ITS ---
Patient Name: Lorna Townsend Procedure Date: 11/09/2024 1:41 PM Date of : 1940 Age: 84 Procedure: Upper GI endoscopy Indications: Dysphagia Providers: DO Sha Pearson MD: Apollo Dinh Medicines: Monitored Anesthesia Care Patient Profile: This is an 84 year old female. Refer to note in patient chart for documentation of history and physical. Patient has symptoms of dysphagia with both liquids and solids. Complications: No immediate complications. Procedure: Pre-Anesthesia Assessment: - Prior to the procedure, a History and Physical was performed, and patient medications and allergies were reviewed. The patient is competent. The risks and benefits of the procedure and the sedation options and risks were discussed with the patient. All questions were answered and informed consent was obtained. Patient identification and proposed procedure were verified by the physician in the pre-procedure area. Mental Status Examination: alert and oriented. Airway Examination: normal oropharyngeal airway and neck mobility. Respiratory Examination: clear to auscultation. CV Examination: normal. Prophylactic Antibiotics: The patient does not require prophylactic antibiotics. Prior Anticoagulants: The patient has taken no anticoagulant or antiplatelet agents except for NSAID medication. ASA Grade Assessment: II - A patient with mild systemic disease. After reviewing the risks and benefits, the patient was deemed in satisfactory condition to undergo the procedure. The anesthesia plan was to use monitored anesthesia care (MAC). Immediately prior to administration of medications, the patient was re-assessed for adequacy to receive sedatives. The heart rate, respiratory rate, oxygen saturations, blood pressure, adequacy of pulmonary ventilation, and response to care were monitored throughout the procedure. The physical status of the patient was re-assessed after the procedure. After obtaining informed consent, the endoscope was passed under direct vision. Throughout the procedure, the patient's blood pressure, pulse, and oxygen saturations were monitored continuously. The Endoscope was introduced through the mouth, and advanced to the second part of duodenum. The upper GI endoscopy was accomplished without difficulty. The patient tolerated the procedure well. Scope In: 2:01:09 PM Scope Out: 2:07:51 PM Total Procedure Duration Time 0 hours 6 minutes 42 seconds Findings: Abnormal motility was noted in the esophagus. The cricopharyngeus was abnormal. There are extra peristaltic waves in the esophageal body. The distal esophagus/lower esophageal sphincter is spastic, but gives up passage to the endoscope. Secondary peristaltic waves are noted. Biopsies were taken with a cold forceps for histology. Verification of patient identification for the specimen was done. Estimated blood loss was minimal. A guidewire was placed and the scope was withdrawn. Dilation was performed with a Savary dilator with no resistance at 54 Fr. The dilation site was examined and showed moderate improvement in luminal narrowing. Estimated blood loss was minimal. Diffuse moderate inflammation characterized by congestion (edema), erosions and erythema was found in the entire examined stomach. No gross lesions were noted in the duodenal bulb. Impression: - Abnormal esophageal motility, consistent with achalasia. Biopsied. Dilated. - Chronic gastritis. - No gross lesions in the duodenal bulb. Recommendation: - Discharge patient to home. - Advance diet as tolerated. - Continue present medications. - Await pathology results. Procedure Code(s): --- Professional --- 04626, Esophagogastroduodenoscopy, flexible, transoral; with insertion of guide wire followed by passage of dilator(s) through esophagus over guide wire [id number], 59,51, Esophagogastroduodenoscopy, flexible, transoral; with biopsy, single or multiple CPT copyright 2021 [employer]. All rights reserved. The codes documented in this report are preliminary and upon health information coder review may be revised to meet current compliance requirements. Timothy Barth DO 11/09/2024 2:15:00 PM This report has been signed electronically. Number of Addenda: 0 Note Initiated On: 11/09/2024 1:41 PM
--- NOTE | 2024-11-09 14:15 | OP.CCLET_ITS ---
11/09/2024 Jean Claude Gutierrez Re : Upper GI endoscopy procedure for Lorna Townsend Dear Matt This procedure was performed on Saturday, November 09, 2024. My impressions and recommendations are as follows: Impressions : - Abnormal esophageal motility, consistent with achalasia. Biopsied. Dilated. - Chronic gastritis. - No gross lesions in the duodenal bulb. Recommendations : - Discharge patient to home. - Advance diet as tolerated. - Continue present medications. - Await pathology results. My findings are described in the full procedure note, which is enclosed. If I can be of further assistance, please feel free to contact me at . Sincerely, Timothy Barth, 11/09/2024 2:15:00 PM This report has been signed electronically.
--- NOTE | 2024-11-09 14:22 | POSTOPAN2_ITS ---
Anesthesia Postop Eval I Sum Postop Eval Completion status Anesthesia document: Postop Eval 1 completed: Yes Anesthesia Postop Eval I Summary Anesthesia Postop Eval I Summary: Anesthesia Postop Eval I: Assessment Summary Airway patent Yes 11/09/24 14:14 [email or web address] Spontaneous unlabored Yes 11/09/24 14:14 [email or web address] respirations Mental status Asleep 11/09/24 14:14 [email or web address] nausea No 11/09/24 14:14 [email or web address] Vomiting No 11/09/24 14:14 [email or web address] Anesthesia Postop Eval I: Fluid Summary Crystalloid volume administer 10 11/09/24 14:14 [email or web address] (ml) Colloids volume administered ( ml) Blood Product volume administered (ml) Total IV fluid infused 10 11/09/24 14:14 [email or web address] Anesthesia Postop Eval I: Summary Notes Anesthesia Complication No 11/09/24 14:14 [email or web address] Anesthesia Complication Comment: Post-operative progress note Anesthesia: Postop Eval II Evaluation Mental status: Awake Pain Level: 0 nausea: No Vomiting: No
--- NOTE | 2024-11-09 14:22 | PCM.POSTANE2 ---
Anesthesia Postop Eval I Sum Postop Eval Completion status Anesthesia document: Postop Eval 1 completed: Yes Anesthesia Postop Eval I Summary Anesthesia Postop Eval I Summary: Anesthesia Postop Eval I: Assessment Summary Airway patent Yes 11/09/24 14:14 [email or web address] Spontaneous unlabored Yes 11/09/24 14:14 [email or web address] respirations Mental status Asleep 11/09/24 14:14 [email or web address] nausea No 11/09/24 14:14 [email or web address] Vomiting No 11/09/24 14:14 [email or web address] Anesthesia Postop Eval I: Fluid Summary Crystalloid volume administer 10 11/09/24 14:14 [email or web address] (ml) Colloids volume administered ( ml) Blood Product volume administered (ml) Total IV fluid infused 10 11/09/24 14:14 [email or web address] Anesthesia Postop Eval I: Summary Notes Anesthesia Complication No 11/09/24 14:14 [email or web address] Anesthesia Complication Comment: Post-operative progress note Anesthesia: Postop Eval II Evaluation Mental status: Awake Pain Level: 0 nausea: No Vomiting: No
--- NOTE | 2024-11-09 16:28 | PCM.CONS.GEN ---
Assessment & Plan Assessment/Plan (1) Dysphagia: (2) Sepsis: (3) Pneumonia: PLAN: On vanc/zosyn, cxs neg so far. MRSA pcr (+) of nares. Will follow, thank you HPI Consult Data Date of Consult: 11/09/24 HPI Narrative Reason for Consultation: pneumonia HPI Narrative: TALIA BURT, is a 84 F with h/o dysphagia, CHF, COPD, CAD, depression, recent admit for epistaxis and pneumonia requiring transfer to [facility] [place]. Presented 11/07 with several days increased cough, hypoxia, fatigue, not feeling well. No fever or chills. Admitted on vanc/zosyn. Seen by pulm. Taken to EGD this AM for esophageal stricture dilation. Feeling better. Some cough still. Full ROS performed and neg except as noted above. [facility] Medical History DNR (do not resuscitate) Hypoxia Pneumonia Epistaxis Congestive heart failure (CHF) COVID-19 COPD (chronic obstructive pulmonary disease) Acute respiratory failure with hypoxia COVID HFrEF (heart failure with reduced ejection fraction) Insomnia Depression Coronary artery disease Hyperlipidemia Acute UTI Weakness Wears glasses Wears dentures Post-menopausal Forgetfulness Depression Anxiety Lichen sclerosus Walker as ambulation aid Ambulates with cane Arthritis History of renal disease Low iron Pulmonary embolism DVT (deep venous thrombosis) Restless legs History of diverticulitis Shortness of breath on exertion Emphysema, unspecified COPD (chronic obstructive pulmonary disease) History of edema History of stress test History of echocardiogram Hypertension History of heart attack Chest pain Hx of intestinal obstruction History of left heart catheterization (LHC) (~11/05/21) Fatigue Angina pectoris Lung nodule Atherosclerotic heart disease of [place] coronary artery without angina pectoris Pure hypercholesterolemia Gout Essential hypertension Rectocele Anemia Constipation Diarrhea Asthma SOB (shortness of breath) Hx TIA/stroke w/o resid PVD (peripheral vascular disease) Other pulmonary embolism and infarction Osteoporosis Myalgia Lichen sclerosus Glaucoma Dysthymic disorder Dysplasia of cervix, unspecified Diverticulosis CKD (chronic kidney disease) stage 3, GFR 30-59 ml/min Scleroderma History of dermatomyositis Home Medications ?Medication ?Instructions ?Recorded ?Last Taken ?Type simvastatin 20 mg tablet 20 mg PO QHS CHOLESTEROL 10/10/15 07/03/23 History latanoprost 0.005 % eye drops 1 drp ophthalmic (eye) QPM GLAUCOMA 01/12/19 07/03/23 History nitroglycerin 0.4 mg sublingual 0.4 mg sublingual Q5-15M PRN CHEST 01/12/19 Unknown History tablet PAIN clobetasol 0.05 % topical cream 1 applic topical BID PSORIASES 06/26/21 Unknown History brimonidine 0.1 % eye drops 2 drp ophthalmic (eye) DAILY EYE 07/11/21 07/03/23 History IRRITATION calcipotriene 0.005 % topical cream 1 applic topical DAILY PRN 01/22/23 Unknown History PSORIASES montelukast 10 mg tablet 10 mg PO DAILY ALLERGIES 01/22/23 07/04/23 History netarsudil 0.02 % eye drops 1 drp EACH EYE DAILY GLAUCOMA 01/22/23 07/03/23 History (Rhopressa) acetaminophen 500 mg tablet 1,000 mg (2 x 500 mg) PO Q6H PRN 02/06/23 Unknown Rx PRN Pain Score 1-10 #0 tabs amlodipine 5 mg tablet 5 mg PO DAILY 30 days #30 tabs 02/06/23 07/04/23 Rx budesonide 160 mcg-glycopyr 9 2 inh inhalation DAILY 07/04/23 07/04/23 History mcg-formot 4.8 mcg/actuation HFA inhaler (Breztri Aerosphere) gabapentin 100 mg capsule 200 mg PO QHS 07/04/23 07/03/23 History trazodone 50 mg tablet 75 mg PO QHS 07/04/23 07/03/23 History benzonatate 100 mg capsule 100 mg PO TID PRN cough 10/13/23 Unknown History furosemide 40 mg tablet 40 mg PO DAILY 10/13/23 Unknown History isosorbide mononitrate 60 mg See Rx Instructions .Route 10/28/23 Unknown Rx tablet,extended release 24 hr .COMPLEX #60 TABLETS cholecalciferol (vitamin D3) 25 25 mcg PO QDAY 06/21/24 Unknown History mcg (1,000 unit) capsule carbidopa 25 mg-levodopa 100 mg 2 tab PO TID 10/16/24 Unknown History tablet sertraline 100 mg tablet 100 mg PO DAILY 10/16/24 Unknown History albuterol sulfate 90 mcg/actuation 2 puff inhalation Q8H PRN 10/24/24 Unknown History aerosol inhaler (Ventolin HFA) shortness of breath or wheezing aspirin 81 mg tablet,delayed 81 mg PO QDAY #90 tabs 10/24/24 Unknown Rx release (Adult Aspirin Regimen) bisacodyl 10 mg rectal suppository 10 mg UT QDAY PRN constipation 10/24/24 Unknown History cyanocobalamin (vitamin B-12) 100 100 mcg PO QDAY 10/24/24 Unknown History mcg tablet diphenhydramine HCl 25 mg tablet 12.5 mg PO DAILY PRN allergy 10/24/24 Unknown History symptoms docusate sodium 100 mg capsule 100 mg PO BID CONSTIPATION 10/24/24 Unknown History (Colace) ferrous sulfate 325 mg (65 mg 325 mg PO QDAY 10/24/24 Unknown History iron) tablet guaifenesin 600 mg tablet, 600 mg PO BID 10/24/24 Unknown History extended release 12 hr hydrocodone 7.5 mg-acetaminophen 1 tab PO .COMPLEX PRN pain 10/24/24 Unknown History 325 mg tablet lisinopril 20 mg tablet 20 mg PO BID HTN 10/24/24 Unknown History loperamide 2 mg tablet 2 mg PO ONCE PRN loose stool 10/24/24 Unknown History magnesium hydroxide 400 mg/5 mL 30 ml PO QDAY PRN constipation 10/24/24 Unknown History oral suspension (Milk of Magnesia) polyethylene glycol 3350 17 17 g PO QDAY 10/24/24 Unknown History gram/dose oral powder propylene glycol 0.6 % eye drops 1 drp ophthalmic (eye) BID-QID PRN 10/24/24 Unknown History (Systane Complete) dry eye(s) artificial 1 drp EACH EYE PRN 11/07/24 Unknown History tears(coqjgxo-qjmdrcfh-boalupw) 0.1 %-0.3 %-0.2 % eye drops ceftriaxone 1 gram solution for 1 g IM DAILY 11/07/24 Unknown History injection ondansetron HCl 4 mg tablet 4 mg PO Q6H 11/07/24 Unknown History Allergy/AdvReac Type Severity Reaction Status Date / Time metoprolol tartrate (From Allergy Unknown Verified 10/24/24 11:28 Lopressor) shellfish derived Allergy Anaphylaxis Verified 10/24/24 11:28 Sulfa (Sulfonamide Allergy Rash Verified 10/24/24 11:28 Antibiotics) Family History Father Heart disease Myocardial infarction Surgical History History of cholecystectomy History of coronary artery bypass surgery (~08/10/00) Hx of colonoscopy History of total right knee replacement History of left knee replacement History of intraocular lens implant Hx of heart bypass surgery Social History household members: spouse Smoking Status: Former smoker second hand exposure: Yes alcohol intake: never substance use type: does not use caffeine: Yes what type of physical activity do you participate in: none frequency: does not exercise Physical Exam Const alert and no apparent distress General Appearance: cooperative HEENT normocephalic and head/scalp atraumatic Eyes PERRL and EOMs intact bilaterally Neck supple and No nodes Resp clear to auscultation bilaterally Auscultation: diminished lung sounds Cardio regular rate and regular rhythm GI soft to palpation, non-tender and non-distended Extremity General Extremity: Negative for edema Skin no rashes or lesions noted Neuro CN's II-XII intact bilaterally Lab / Micro Data Attestation: I reviewed the patient's lab results. 11/09/24 04:50 11/09/24 04:50 Labs: Laboratory Results - last 24 hr 11/08/24 18:13: Random Vancomycin 17.0 H 11/09/24 04:50: WBC 12.2 H, RBC 2.48 L, Hgb 7.7 L, Hct 24.3 L, MCV 98.0, MCH 31.0, MCHC 31.7 L, RDW Std Deviation 51.5 H, RDW Coeff of Alexandra 17.5 H, Plt Count 228, MPV TNP, Immature Gran % (Auto) 2.200 H, Neut % (Auto) 81.7 H, Lymph % (Auto) 4.3 L, [place] % (Auto) 11.6 H, Eos % (Auto) 0.0, Baso % (Auto) 0.2, Absolute Neuts (auto) 10.0 H, Absolute Lymphs (auto) 0.52 L, Nucleated RBC % 0.4, Sodium 146 H, Potassium 2.8 L, Chloride 111 H, Carbon Dioxide 22.9, Anion Gap 12, BUN 64 H, Creatinine 1.67 H, Estim Creat Clear Calc 28.67 L, Est GFR (MDRD) Non-Af 30 L, BUN/Creatinine Ratio 38.4 H, Glucose 121 H, Calcium 9.3 Micro: Microbiology 11/07/24 10:51 Blood Culture (Wb) - Arm Left Blood Culture - Preliminary No growth in 48 hours. 11/07/24 10:51 Blood Culture (Wb) - Arm Left Blood Culture - Preliminary No growth in 48 hours. 11/07/24 16:10 Nasal Secretion MRSA (PCR) - Final Meth. resistant Staph. aureus Rhythm Strip Rhythm Strip: A-fib Rate: 61 Ectopy: None
[2024-11-09] MEDS: Vancomycin HCl 750 MG in 0.9% Normal Saline (250mL Bag) 250 ML 250 MG IV (19:42)
[2024-11-09] MEDS: Budesonide Respules 0.5 MG/2 ML AMPUL.NEB. INHALATION (20:02)
[2024-11-09] MEDS: traZODone 50 MG Tablet PO (21:51)
[2024-11-09] MEDS: Gabapentin 100 MG Capsule PO (21:51)
[2024-11-09] MEDS: Isosorbide Mononitrate 30 MG Tablet PO (21:51)
[2024-11-09] MEDS: Latanoprost 0.005% 1 Bottle 1 DRP OPHTHALMIC (21:51)
[2024-11-10] VITALS (7 sets, daily range): BP systolic 114–140; BP diastolic 53–69; PULSE 61–88; RESP 16–20; TEMP 36.3–36.9; O2SAT 93–99; BMI 37.1
[2024-11-10] MEDS: Dext 5%-0.45% NS 1,000 ML 75 ML IV (02:03)
[2024-11-10] MEDS: Piperacil/Tazobactam 3.375 GM in 0.9% Normal Saline (50mL MB+) 50 ML IV ×3 (05:07→21:28)
[2024-11-10 06:26] LABS: Absolute Lymphocyte Count 0.66 X10^3/uL (0.83-4.51); Absolute Neutrophil Count 6.1 X10^3/uL (2.0-7.7); Basophil# 0.01 X10^3/uL; Basophil% 0.1 % (0-1); Hematocrit 24.2 % (37-47); Hemoglobin 7.3 g/dL (12.0-15.0); Lymphocyte # 0.66 X10^3/ul (0.83-4.51); Lymphocyte % 8.1 % (19-41); Mean Corp Hgb Conc 30.2 g/dL (32-36); Mean Corpuscular Hgb 30.5 pg (27.0-32.0); Mean Corpuscular Volume 101.3 fL (81-99); Mean Platelet Vol. 11.7 fl (6.2-12.0); Monocyte# 1.15 X10^3/uL; Monocyte% 14.2 % (0-10); NRBC Flagged by Analyzer 0 % (0-5); Neutrophil # 6.07 X10^3/uL (2.7-7.7); Neutrophil % 74.9 % (47-70); Platelet Count 211 K/mm3 (150-450); RBC Distribution Width CV 17.3 % (11.6-14.6); RBC Distribution Width SD 55.8 fl (35.1-43.9); Red Blood Count 2.39 M/mm3 (4.2-5.4); White Blood Count 8.1 K/mm3 (4.4-11.0)
[2024-11-10 06:40] LABS: Anion Gap 11 (5-15); BUN 46 mg/dL (4-19); BUN/Creat Ratio 36.5 RATIO (10-20); Calcium,Total 8.6 mg/dL (7.6-11.0); Carbon Dioxide 21.3 mmol/L (21.0-32.0); Chloride 117 mmol/L (98-108); Creatinine, Serum 1.25 mg/dL (0.70-1.20); EST Glomerular Filtration Rate 43 (>60); Estimated Creatinine Clearance 38.81 ml/min (50-250); Glucose 142 mg/dL (70-99); Potassium 3.4 mmol/L (3.3-5.1); Sodium Level 149 mmol/L (133-145)
[2024-11-10] MEDS: Ipratropium/Albuterol Sulfate 3 ML AMPUL.NEB INHALATION ×2 (07:09→19:50)
[2024-11-10] MEDS: Budesonide Respules 0.5 MG/2 ML AMPUL.NEB. INHALATION ×2 (07:09→19:50)
--- NOTE | 2024-11-10 08:09 | PCM.PN.HOSP ---
Reason for Visit Reason for Visit: Diagnoses Sepsis, unspecified organism (11/07/24) Pneumonia, unspecified organism (11/07/24) Dysphagia, unspecified (11/07/24) Objective Data Objective Data Vital Signs: Vital Signs Temp Pulse Resp BP Pulse Ox O2 Del Method O2 Flow Rate 98.4 F 62 17 128/65 H 97 Nasal Cannula 2 11/10/24 02:04 11/10/24 02:04 11/10/24 02:04 11/10/24 02:04 11/10/24 02:04 11/10/24 02:04 11/10/24 02:04 Oxygen Flow Rate (L/min) 2 Oxygen Delivery Method Nasal Cannula Weight: 216 lb 7.903 oz Body Mass Index (BMI) 37.1 Intake & Output: Intake and Output for Last 24 Hours 11/08/24 11/09/24 11/10/24 23:59 23:59 23:59 Intake Total 605 / 605 2452.50 / 2452.50 897.5 / 897.5 Balance 605 / 605 2452.50 / 2452.50 897.5 / 897.5 Lab / Micro Data 11/10/24 05:42 11/10/24 05:42 Labs: Laboratory Results - last 24 hr 11/10/24 05:42: WBC 8.1, RBC 2.39 L, Hgb 7.3 L, Hct 24.2 L, MCV 101.3 H, MCH 30.5, MCHC 30.2 L, RDW Std Deviation 55.8 H, RDW Coeff of Alexandra 17.3 H, Plt Count 211, MPV 11.7, Immature Gran % (Auto) 2.700 H, Neut % (Auto) 74.9 H, Lymph % (Auto) 8.1 L, [place] % (Auto) 14.2 H, Eos % (Auto) 0.0, Baso % (Auto) 0.1, Absolute Neuts (auto) 6.1, Absolute Lymphs (auto) 0.66 L, Nucleated RBC % 0, Sodium 149 H, Potassium 3.4, Chloride 117 H, Carbon Dioxide 21.3, Anion Gap 11, BUN 46 H, Creatinine 1.25 H, Estim Creat Clear Calc 38.81 L, Est GFR (MDRD) Non-Af 43 L, BUN/Creatinine Ratio 36.5 H, Glucose 142 H, Calcium 8.6 Micro: Microbiology 11/07/24 10:51 Blood Culture (Wb) - Arm Left Blood Culture - Preliminary No growth in 48 hours. 11/07/24 10:51 Blood Culture (Wb) - Arm Left Blood Culture - Preliminary No growth in 48 hours. 11/07/24 16:10 Nasal Secretion MRSA (PCR) - Final Meth. resistant Staph. aureus 11/07/24 15:25 Urine Catheter - Catheter Legionella Antigen - Final 11/07/24 15:25 Urine Catheter - Catheter Streptococcus pneumoniae Antigen (M - Final 11/07/24 09:35 Mucosa - Nose SARS-CoV-2, Influenza & RSV (PCR) - Final Rhythm Strip Rhythm Strip: A-fib Rate: 61 Ectopy: None Physical Exam Narrative Seen and examined Was evaluated by TRADE CLERK, and his spirits are and advised clear liquid. Patient still having difficulty in swallowing. Has motility disorder. Started on isosorbide and baclofen. Shortness of breath is better. Was evaluated by speech therapist with MBS which showed esophageal retention and vomiting after 4 sips and 2 bites. Physical exam General: Awake, alert, oriented x3, Cooperative. Frail and fatigued HEENT: Atraumatic, PERRLA, EOMI, Normocephalic Oral: Oral mucosa dry. No Gingival or Mucosal Lesions/ Ulcerations Neck: Supple, No JVD, Negative Carotid Bruits Chest wall/Lungs: Air entry severely diminished in bilateral lung bases. bilateral coarse crepitation Cardiovascular: Irregular rhythm, Normal S1, Normal S2, No M/G/R Abdomen: Bowel Sounds Present, Soft, Non Tender, Non-Distended : No dysuria. No renal angle tenderness. No suprapubic tenderness. Extremities: No edema, Capillary Refill Less than 3 Seconds Skin: No rashes, No breakdown Musculoskeletal: Bilateral TKR. No Tenderness to Palpation of Joints or Extremities Neurological: Cranial nerves II-XII grossly intact, DTR 2+/4. No acute focal neurological deficit. Psych/Mental Status: Flat affect, dementia Assessment & Plan Assessment/Plan (1) Pneumonia: PLAN: Plan This 84-year-old female being admitted for pneumonia and hypoxia 1. SARS due to left lower lobe, healthcare associated pneumonia/aspiration pneumonia: Patient is being admitted in PCU. She was tachypneic, hypoxia, leukocytosis, 2.8% immature granulocytes, suggestive of left shift but no hypotension or lactic acidosis. Does not meet criteria for sepsis. Chest CT without contrast initially reviewed and shows left lower lobe infiltrate and chronic changes of COPD, official report pending. Patient started on IV vancomycin and Zosyn. Pneumonia workup including MRSA nasal screen ordered. Triple PCR for SARS-CoV-2, flu and RSV are negative Patient was last admitted in September for community-acquired pneumonia. 11/08: MRSA nasal screen all came positive. Patient on vancomycin since admission. Lobbyist consulted and reviewed. Left lower lobe pneumonia most likely due to aspiration pneumonia. Patient also had esophageal retention and vomiting during modified barium swallow. Made n.p.o. GI consulted. 11/09: ID consult requested to plan of discharge antibiotic whether IV vancomycin or linezolid 11/10: Urine culture shows no growth. Urinary antigens and blood cultures are negative. Dysphagia: EGD today, 11/09/2024. Recommended to continue medication. Advance diet as recommended by speech therapist. Impressions : - Abnormal esophageal motility, consistent with achalasia. Biopsied. Dilated. - Chronic gastritis. - No gross lesions in the duodenal bulb. 11/10: Esophageal motility disorder but unclear the classification as she will need motility study as an outpatient. Discussed with Dr. Barth. Changed Imdur to Isordil 20 mg 3 times daily. Also started on baclofen 5 mg 3 times daily. Discussed with the speech therapist. 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 Patient admitted with 2.67, currently improving 1.67. Serum potassium low 2.8. Potassium is getting replaced. Hypernatremia and hyperchloremia. D5W ordered. Patient n.p.o. but it diet as per speech therapist after EGD. Monitor intake and output. Hypernatremia and hyperchloremia due to insufficient fluid intake: Patient's lungs sound wet and wastarted on IV fluid D5 half NS yesterday. Lasix 40 mg IV given. Chest x-ray done after Lasix which shows persistent residual pleural-parenchymal changes at left lung base and the mild improvement. Right lung clear. IV fluid D5 at 75 mL/h. 2. Mild COPD exacerbation due to pneumonia: COPD exacerbation as evidenced by increased shortness of breath, dyspnea and cough. Patient is being managed on scheduled bronchodilator, IV Solu-Medrol, Mucinex, incentive spirometry and Pep. 11/08: COPD exacerbation got much better. IV Solu-Medrol discontinued. Risk of worsening of pneumonia on steroid therefore steroid discontinued 3. Unclear whether new onset or paroxysmal A-fib: Patient's daughter said she had A-fib in the past. Twelve-lead EKG shows A-fib at 61 beats minute. Patient not on anticoagulant but on baby aspirin. Discussed the risk, benefit and monitoring of anticoagulant patient daughter agreed. Low-dose Eliquis 2.5 mg twice daily started. 4. CAD status post CABG x 2: Patient does not have any chest pain but sometimes she had chest soreness from coughing. Baby aspirin was held as patient is started on Eliquis. 2 troponins 133, 122 decreasing trend suggestive of increased cardiac demand from pneumonia 11/08: Even after communication with the nursing staff not to do third troponin, it was ordered probably by night nurse and third troponin is the lowest 103 therefore it is futile test. Mildly irritated due to increased cardiac demand. 5. Chronic HFrEF and HFpEF: Last echo January 2023 showed EF 45%, LA severely enlarged. As patient's BP on lower side therefore will hold antihypertensive medications including Lasix. BNP elevated but chest x-ray and chest CT did not show pulmonary edema. 6. Dyslipidemia: On simvastatin continued. 7. Dementia with behavioral disturbances: 8. Hypertension: As mentioned above. Hold antihypertensive medications DVT prophylaxis, high risk: On low-dose Eliquis. Living will/advanced directive/end of life care: Patient does have living will or advanced directive. After discussion of benefits/risks procedures involved with full code, DNR CC arrest and DNR CC, the patient and her daughter POA present in the ED and agreed for DNR CC arrest with no intubation. Patient doesn't want artificial life support including intubation, tube feed, ventilator and/chest compression, central venous catheter, vasopressor and DC shock if needed Microbiology Past 72 Hours 11/07/24 15:25 Urine Catheter - Catheter Urine Culture - Final Culture exhibits no growth. 11/07/24 15:25 Urine Catheter - Catheter Legionella Antigen - Final 11/07/24 15:25 Urine Catheter - Catheter Streptococcus pneumoniae Antigen (M - Final 11/07/24 10:51 Blood Culture (Wb) - Arm Left Blood Culture - Preliminary No growth in 48 hours. 11/07/24 10:51 Blood Culture (Wb) - Arm Left Blood Culture - Preliminary No growth in 48 hours. 11/07/24 16:10 Nasal Secretion MRSA (PCR) - Final Meth. resistant Staph. aureus Laboratory Results 11/10/24 05:42: WBC 8.1, RBC 2.39 L, Hgb 7.3 L, Hct 24.2 L, MCV 101.3 H, MCH 30.5, MCHC 30.2 L, RDW Std Deviation 55.8 H, RDW Coeff of Alexandra 17.3 H, Plt Count 211, MPV 11.7, Immature Gran % (Auto) 2.700 H, Neut % (Auto) 74.9 H, Lymph % (Auto) 8.1 L, [place] % (Auto) 14.2 H, Eos % (Auto) 0.0, Baso % (Auto) 0.1, Absolute Neuts (auto) 6.1, Absolute Lymphs (auto) 0.66 L, Nucleated RBC % 0, Sodium 149 H, Potassium 3.4, Chloride 117 H, Carbon Dioxide 21.3, Anion Gap 11, BUN 46 H, Creatinine 1.25 H, Estim Creat Clear Calc 38.81 L, Est GFR (MDRD) Non-Af 43 L, BUN/Creatinine Ratio 36.5 H, Glucose 142 H, Calcium 8.6, [place] [address] H Charges/Coding Visit Charges Inpatient E&M: 55735 Subs Hosp L2
[2024-11-10] MEDS: BRIMONIDINE 0.2% 5ML BOTTLE 1 DRP OPHTHALMIC (09:02)
[2024-11-10] MEDS: Menthol/Lanolin/Calamine/Znox 113 GM Tube 1 APPLIC TOPICAL ×2 (09:04→20:30)
[2024-11-10] MEDS: Pantoprazole Sodium 40 MG in 0.9% Normal Saline (100mL MB+) 100 ML 330 MG IV (09:06)
[2024-11-10] MEDS: Sodium Ferric Gluconat/Sucrose 250 MG in 0.9% Normal Saline (250mL Bag) 250 ML 135 MG IV (09:26)
[2024-11-10] MEDS: Polyethylene Glycol 3350 17 GM PACKET PO (09:29)
[2024-11-10] MEDS: guaiFENesin 600 MG Tablet PO ×2 (09:45→21:32)
[2024-11-10] MEDS: Sertraline 100 MG Tablet PO (09:45)
[2024-11-10] MEDS: Carbidopa/Levodopa 25/100 Tablet PO ×2 (09:45→15:01)
[2024-11-10] MEDS: Furosemide 40 MG/4 ML Vial IV (09:45)
[2024-11-10] MEDS: Montelukast 10 MG Tablet PO (09:45)
[2024-11-10] MEDS: Dextrose 5%-Water (1000mL Bag) 1,000 ML 75 ML IV ×2 (09:58→21:28)
--- NOTE | 2024-11-10 10:45 | PN.CC_ITS ---
Objective Data Objective Data Vital Signs: Vital Signs Last response 3 Temperature 36.6 C 11/10/24 08:50 Temperature Source Oral 11/10/24 08:50 Pulse Rate 80 11/10/24 08:50 Pulse Strength Normal (2+) 11/09/24 19:50 Respiratory Rate 16 11/10/24 08:50 Respiratory Effort Normal, Non-Labored 11/09/24 14:08 Respiratory Depth Normal 11/09/24 14:08 Respiratory Pattern Tachypnea 11/09/24 20:04 Blood Pressure 140/69 H 11/10/24 08:50 Blood Pressure Mean 92 11/10/24 08:50 Blood Pressure Source Monitor 11/10/24 08:50 Blood Pressure Position Semi-Fowlers 11/10/24 08:50 Blood Pressure Location Left Arm 11/10/24 08:50 Baseline BP 155/75 11/09/24 14:35 Pulse Ox 97 11/10/24 08:50 Oxygen Delivery Method Nasal Cannula 11/10/24 08:50 Oxygen Flow Rate (L/min) 2 11/10/24 08:50 I&O: I&O Last 24 Hours 3 11/09/24 11/09/24 11/10/24 11:59 23:59 11:59 Intake Total 1386.25 / 2452.50 1066.25 / 2452.50 2057.5 / 2057.5 Balance 1386.25 / 2452.50 1066.25 / 2452.50 2057.5 / 2057.5 I&O: Total Stay 3 11/07/24 08:56 thru 11/10/24 10:00 Intake Total 6875.00 Output Total 500 Balance 6375.00 Current Meds Ordered / Administered: Current meds ordered / Administered 3 Generic Name Dose Route Start Last Admin Trade Name Freq PRN Reason Stop Dose Admin Acetaminophen 1,000 mg 11/07/24 12:49 Acetaminophen 500 Mg Tablet PO Q8H PRN PRN Pain Score 1-10 Albuterol/Ipratropium 3 ml 11/07/24 13:30 11/10/24 07:09 Ipratropium/Albuterol Sulfate 3 Ml Ampul.Neb INHALATION 3 ml Q6HWA.RT JOSEY Administration Artificial Tears 1 drp 11/07/24 13:15 Carboxymethylcellulose Sodium 15 Ml Ophth Drops EACH EYE Q2H PRN DRY EYES Atorvastatin Calcium 10 mg 11/07/24 22:00 11/09/24 21:45 Atorvastatin Calcium 10 Mg Tablet PO Not Given QHS [facility] Benzonatate 200 mg 11/07/24 14:00 11/10/24 05:08 Benzonatate 100 Mg Capsule PO Not Given TID JOSEY Bisacodyl 10 mg 11/07/24 12:49 Bisacodyl 10 Mg Suppository RC DAILY PRN CONSTIPATION Brimonidine Tartrate 1 drp 11/08/24 10:00 11/10/24 09:02 Brimonidine 0.2% 5ml Bottle OPHTHALMIC 1 drp DAILY JOSEY Administration Budesonide 0.5 mg 11/09/24 15:45 11/10/24 07:09 Budesonide Respules 0.5 Mg/2 Ml Ampul.Neb. INHALATION 0.5 mg BID.RT JOSEY Administration Calamine/Phenol 1 applic 11/07/24 22:00 11/10/24 09:04 Menthol/Lanolin/Calamine/Znox 113 Gm Tube TOPICAL 1 applic BID JOSEY Administration Protocol Carbidopa/Levodopa 2 tablet 11/07/24 16:00 11/10/24 09:45 Carbidopa/Levodopa 25/100 Tablet PO 2 tablet TIDAC JOSEY Administration Diphenhydramine HCl 12.5 mg 11/07/24 13:12 11/08/24 21:41 Diphenhydramine 12.5 Mg/5 Ml Udc PO 12.5 mg DAILY PRN Administration allergy symptoms Ferrous Sulfate 325 mg 11/08/24 12:00 11/08/24 13:40 Ferrous Sulfate 325 Mg Tablet PO Not Given Q48@1200 [facility] Gabapentin 100 mg 11/07/24 22:00 11/09/24 21:51 Gabapentin 100 Mg Capsule PO 100 mg QHS [facility] Administration Guaifenesin 600 mg 11/07/24 22:00 11/10/24 09:45 Guaifenesin 600 Mg Tablet PO 600 mg BID JOSEY Administration Vancomycin IV-PHARMACY TO DOSE 500 mls @ 250 mls/hr 11/07/24 13:00 1 each/ Sodium Chloride IV PRN PRN RX TO DOSE Protocol Vancomycin HCl 750 mg/ Sodium 265 mls @ 250 mls/hr 11/08/24 20:00 11/09/24 20:47 Chloride IV Infused Q24H JOSEY Infusion Pantoprazole Sodium 40 mg/ 110 mls @ 330 mls/hr 11/09/24 10:00 11/10/24 09:26 Sodium Chloride IV Infused Q24 JOSEY Infusion Piperacillin Sod/Tazobactam 50 mls @ 12.5 mls/hr 11/09/24 08:30 11/10/24 09:07 Sod 3.375 gm/ Sodium Chloride IV Infused Q8 JOSEY Infusion Ferric Sodium Gluconate 270 mls @ 135 mls/hr 11/10/24 09:00 11/10/24 09:26 Complex 250 mg/ Sodium IV 11/10/24 10:59 135 mls/hr Chloride X1 ONE Administration Dextrose 1,000 mls @ 75 mls/hr 11/10/24 11:10 11/10/24 09:58 IV 11/11/24 13:49 75 mls/hr .[id number] JOSEY Administration Protocol Isosorbide Dinitrate 20 mg 11/10/24 14:00 Isosorbide Dn 20 Mg Tablet PO TID JOSEY Protocol Latanoprost 1 drp 11/07/24 21:00 11/09/24 21:51 Latanoprost 0.005% 1 Bottle OPHTHALMIC 1 drp QPM JOSEY Administration Montelukast Sodium 10 mg 11/08/24 10:00 11/10/24 09:45 Montelukast 10 Mg Tablet PO 10 mg DAILY JOSEY Administration Nitroglycerin 0.4 mg 11/07/24 12:49 Nitroglycerin (Inpatient Use) 0.4 Mg Tab.Subl SL Q5M PRN CHEST PAIN Polyethylene Glycol 17 gm 11/08/24 10:00 11/10/24 09:29 Polyethylene Glycol 3350 17 Gm Packet PO 17 gm DAILY JOSEY Administration Sertraline HCl 100 mg 11/08/24 10:00 11/10/24 09:45 Sertraline 100 Mg Tablet PO 100 mg DAILY JOSEY Administration Trazodone HCl 50 mg 11/07/24 22:00 11/09/24 21:51 Trazodone 50 Mg Tablet PO 50 mg QHS JOSEY Administration Vancomycin Protocol 1 lab 11/10/24 17:30 Vancomycin Trough/Random Due MC 11/10/24 21:30 DAILY [facility] Lab / Micro Data 11/10/24 05:42 11/10/24 05:42 Labs: Laboratory Results - last 24 hr 11/10/24 05:42: WBC 8.1, RBC 2.39 L, Hgb 7.3 L, Hct 24.2 L, MCV 101.3 H, MCH 30.5, MCHC 30.2 L, RDW Std Deviation 55.8 H, RDW Coeff of Alexandra 17.3 H, Plt Count 211, MPV 11.7, Immature Gran % (Auto) 2.700 H, Neut % (Auto) 74.9 H, Lymph % (Auto) 8.1 L, [place] % (Auto) 14.2 H, Eos % (Auto) 0.0, Baso % (Auto) 0.1, Absolute Neuts (auto) 6.1, Absolute Lymphs (auto) 0.66 L, Nucleated RBC % 0, S odium 149 H, Potassium 3.4, Chloride 117 H, Carbon Dioxide 21.3, Anion Gap 11, B UN 46 H, Creatinine 1.25 H, Estim Creat Clear Calc 38.81 L, Est GFR (MDRD) Non- Af 43 L, BUN/Creatinine Ratio 36.5 H, Glucose 142 H, Calcium 8.6 Micro: Microbiology 11/07/24 15:25 Urine Catheter - Catheter Urine Culture - Final Culture exhibits no growth. 11/07/24 15:25 Urine Catheter - Catheter Legionella Antigen - Final 11/07/24 15:25 Urine Catheter - Catheter Streptococcus pneumoniae Antigen (M - Final 11/07/24 10:51 Blood Culture (Wb) - Arm Left Blood Culture - Preliminary No growth in 48 hours. 11/07/24 10:51 Blood Culture (Wb) - Arm Left Blood Culture - Preliminary No growth in 48 hours. Rhythm Strip Rhythm Strip: A-fib Rate: 61 Ectopy: None Assessment and Plan . Assessment and plan: Subjective: No acute events o/n. Underwent EGD with concern for achalasia, underwent biopsy and esophageal dilation. She feels breathing about the same as yest, mild increased WOB Physical Exam: Gen - NAD, obese, elderly HEENT - MMM. Sclera anicteric Resp - +crackles. Mild tachypnea CV - RRR. No m/g/r Abd - Soft, NT, ND Ext - No c/c. +edema Skin - No rashes? Neuro - Grossly nonfocal. Awake, can answer some questions appropriately. +baseline dementia I have reviewed the pertinent vital sign, laboratory, and imaging data. ASSESSMENT: # Acute hypoxic respiratory failure # PNA - possible aspiration vs MRSA? # Dysphagia - EGD yesterday concerning for acahalasia, underwent biopsy and esophageal dilation # COPD # Hypernatremia # LANDON on CKD # Paroxsymal Afib # HFrEF # CAD s/p CABG # Anemia # Dementia PLAN: -On 2L NC, wean to keep sats > 90%. Encourage IS, mobilization as tolerated -Mild increased WOB. Agree with dose of IV lasix and monitor response. Repeat CXR -Empiric vanc/zosyn, f/u Cx, obtain sputum sample if able (still pending). MRSA positive. Procal elevated -GI following, s/p EGD as above -Cont ST eval, aspiration precautions -Budesonide, duonebs. Low threshold for restarting systemic steroids if worsening wheezing/bronchospasm -Consider adding CPT/mucomyst if worsening mucus secretions, but no significant mucus secretions reported thus far -IVF switched to D5W given worsening hyperNa. If additional diuresis needed can consider diuril as well to help mitigate hyperNa. -Monitor for worsening Afib/RVR. Started on eliquis per IM -Replete electrolytes PRN -Follow CBC, monitor for bleeding FEN/GI: On clear liquid diet per ST, aspiration precautions Proph DVT/GI: Eliquis, protonix Code status: DNR The entirety of this encounter was done via telemedicine using both audio and video. Consent was obtained.
[2024-11-10 12:09] LABS: Pro- Brain NATRIURETIC PEPTIDE 18591 pg/mL (<=1800)
--- NOTE | 2024-11-10 13:15 | RAD_ITS ---
PROCEDURE: CHEST 1 VIEW (PORTABLE) N/A REASON FOR EXAM: RESP FAILURE, PNA, POSSIBLE CHF TECHNIQUE: Portable chest radiograph was obtained. COMPARISON: Comparison is made with prior study November 07, 2024. FINDINGS: Hardware: Sternotomy wires are present. Heart: EKG electrodes are seen. Lungs: Persistent pleural-parenchymal changes at the left lung base although there has been improvement as compared to prior study. The right lung is clear. Bones: Degenerative changes are identified within the thoracic spine. Degenerative changes of both shoulder joints. Other: RAD/Chest 1 View (Portable) IMPRESSION: Persistent residual pleural-parenchymal changes at the left lung base although there has been improvement as compared to prior study. Reading Location: [facility]
[2024-11-10] MEDS: Benzonatate 100 MG Capsule 200 MG PO ×2 (14:42→21:31)
[2024-11-10] MEDS: Ferrous Sulfate 325 MG Tablet PO (14:42)
[2024-11-10] MEDS: Isosorbide DN 20 MG Tablet PO ×2 (14:44→21:31)
--- NOTE | 2024-11-10 15:05 | CASEMGMT ---
SW spoke with patient and her daughter. SW introduced self and role at [facility]. SW asked about d/c plan and patient's daughter said patient will return to [place] as they have [facility] there. Patient's daughter said if patient needs O2 she won't be able to transport. However, if patient does not require O2 she can take her. SW will continue to follow. Jenn White MSW KAYLYN
--- NOTE | 2024-11-10 17:19 | PN.HOSP_ITS ---
Reason for Visit Reason for Visit: Diagnoses Sepsis, unspecified organism (11/07/24) Pneumonia, unspecified organism (11/07/24) Dysphagia, unspecified (11/07/24) Objective Data Objective Data Vital Signs: Vital Signs Temp Pulse Resp BP Pulse Ox O2 Del Method O2 Flow Rate 97.4 F L 61 16 114/55 L 96 Nasal Cannula 2 11/10/24 15:00 11/10/24 15:00 11/10/24 15:00 11/10/24 15:00 11/10/24 15:00 11/10/24 15:00 11/10/24 15:00 Oxygen Flow Rate (L/min) 2 Oxygen Delivery Method Nasal Cannula Weight: 216 lb 7.903 oz Body Mass Index (BMI) 37.1 Intake & Output: Intake and Output for Last 24 Hours 11/08/24 11/09/24 11/10/24 23:59 23:59 23:59 Intake Total 605 / 605 2452.50 / 2452.50 2327.5 / 2327.5 Balance 605 / 605 2452.50 / 2452.50 2327.5 / 2327.5 Lab / Micro Data 11/10/24 05:42 11/10/24 05:42 Labs: Laboratory Results - last 24 hr 11/10/24 05:42: WBC 8.1, RBC 2.39 L, Hgb 7.3 L, Hct 24.2 L, MCV 101.3 H, MCH 30.5, MCHC 30.2 L, RDW Std Deviation 55.8 H, RDW Coeff of Alexandra 17.3 H, Plt Count 211, MPV 11.7, Immature Gran % (Auto) 2.700 H, Neut % (Auto) 74.9 H, Lymph % (Auto) 8.1 L, [place] % (Auto) 14.2 H, Eos % (Auto) 0.0, Baso % (Auto) 0.1, Absolute Neuts (auto) 6.1, Absolute Lymphs (auto) 0.66 L, Nucleated RBC % 0, S odium 149 H, Potassium 3.4, Chloride 117 H, Carbon Dioxide 21.3, Anion Gap 11, B UN 46 H, Creatinine 1.25 H, Estim Creat Clear Calc 38.81 L, Est GFR (MDRD) Non- Af 43 L, BUN/Creatinine Ratio 36.5 H, Glucose 142 H, Calcium 8.6, [place] [address] H Micro: Microbiology 11/07/24 15:25 Urine Catheter - Catheter Urine Culture - Final Culture exhibits no growth. 11/07/24 15:25 Urine Catheter - Catheter Legionella Antigen - Final 11/07/24 15:25 Urine Catheter - Catheter Streptococcus pneumoniae Antigen (M - Final 11/07/24 10:51 Blood Culture (Wb) - Arm Left Blood Culture - Preliminary No growth in 48 hours. 11/07/24 10:51 Blood Culture (Wb) - Arm Left Blood Culture - Preliminary No growth in 48 hours. 11/07/24 16:10 Nasal Secretion MRSA (PCR) - Final Meth. resistant Staph. aureus 11/07/24 09:35 Mucosa - Nose SARS-CoV-2, Influenza & RSV (PCR) - Final Radiography Diagnostic Testing: Radiology Impression Chest X-Ray 11/10/24 13:15 IMPRESSION: Persistent residual pleural-parenchymal changes at the left lung base although there has been improvement as compared to prior study. Reading Location: [facility] Rhythm Strip Rhythm Strip: A-fib Rate: 61 Ectopy: None Physical Exam Narrative Seen and examined Was evaluated by PHARMACEUTICAL DEVELOPMENT TECHNICIAN, and his spirits are and advised clear liquid. Patient still having difficulty in swallowing. Has motility disorder. Started on isosorbide and baclofen. Shortness of breath is better. Was evaluated by speech therapist with MBS which showed esophageal retention and vomiting after 4 sips and 2 bites. Physical exam General: Awake, alert, oriented x3, Cooperative. Frail and fatigued HEENT: Atraumatic, PERRLA, EOMI, Normocephalic Oral: Oral mucosa dry. No Gingival or Mucosal Lesions/ Ulcerations Neck: Supple, No JVD, Negative Carotid Bruits Chest wall/Lungs: Air entry severely diminished in bilateral lung bases. bilateral coarse crepitation Cardiovascular: Irregular rhythm, Normal S1, Normal S2, No M/G/R Abdomen: Bowel Sounds Present, Soft, Non Tender, Non-Distended : No dysuria. No renal angle tenderness. No suprapubic tenderness. Extremities: No edema, Capillary Refill Less than 3 Seconds Skin: No rashes, No breakdown Musculoskeletal: Bilateral TKR. No Tenderness to Palpation of Joints or Extremities Neurological: Cranial nerves II-XII grossly intact, DTR 2+/4. No acute focal neurological deficit. Psych/Mental Status: Flat affect, dementia Assessment & Plan Assessment/Plan (1) Pneumonia: PLAN: Plan This 84-year-old female being admitted for pneumonia and hypoxia 1. SARS due to left lower lobe, healthcare associated pneumonia/aspiration pneumonia: Patient is being admitted in PCU. She was tachypneic, hypoxia, leukocytosis, 2.8% immature granulocytes, suggestive of left shift but no hypotension or lactic acidosis. Does not meet criteria for sepsis. Chest CT without contrast initially reviewed and shows left lower lobe infiltrate and chronic changes of COPD, official report pending. Patient started on IV vancomycin and Zosyn. Pneumonia workup including MRSA nasal screen ordered. Triple PCR for SARS-CoV-2, flu and RSV are negative Patient was last admitted in September for community-acquired pneumonia. 11/08: MRSA nasal screen all came positive. Patient on vancomycin since admission. [employer] consulted and reviewed. Left lower lobe pneumonia most likely due to aspiration pneumonia. Patient also had esophageal retention and vomiting during modified barium swallow. Made n.p.o. GI consulted. 11/09: ID consult requested to plan of discharge antibiotic whether IV vancomycin or linezolid 11/10: Urine culture shows no growth. Urinary antigens and blood cultures are negative. Dysphagia: EGD today, 11/09/2024. Recommended to continue medication. Advance diet as recommended by speech therapist. Impressions : - Abnormal esophageal motility, consistent with achalasia. Biopsied. Dilated. - Chronic gastritis. - No gross lesions in the duodenal bulb. 11/10: Esophageal motility disorder but unclear the classification as she will need motility study as an outpatient. Discussed with Dr. Barth. Changed Imdur to Isordil 20 mg 3 times daily. Also started on baclofen 5 mg 3 times daily. Discussed with the speech therapist. 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 Patient admitted with 2.67, currently improving 1.67. Serum potassium low 2.8. Potassium is getting replaced. Hypernatremia and hyperchloremia. D5W ordered. Patient n.p.o. but it diet as per speech therapist after EGD. Monitor intake and output. Hypernatremia and hyperchloremia due to insufficient fluid intake: Patient's lungs sound wet and wastarted on IV fluid D5 half NS yesterday. Lasix 40 mg IV given. Chest x-ray done after Lasix which shows persistent residual pleural- parenchymal changes at left lung base and the mild improvement. Right lung clear. IV fluid D5 at 75 mL/h. 2. Mild COPD exacerbation due to pneumonia: COPD exacerbation as evidenced by increased shortness of breath, dyspnea and cough. Patient is being managed on scheduled bronchodilator, IV Solu-Medrol, Mucinex, incentive spirometry and Pep. 11/08: COPD exacerbation got much better. IV Solu-Medrol discontinued. Risk of worsening of pneumonia on steroid therefore steroid discontinued 3. Unclear whether new onset or paroxysmal A-fib: Patient's daughter said she had A-fib in the past. Twelve-lead EKG shows A-fib at 61 beats minute. Patient not on anticoagulant but on baby aspirin. Discussed the risk, benefit and monitoring of anticoagulant patient daughter agreed. Low-dose Eliquis 2.5 mg twice daily started. 4. CAD status post CABG x 2: Patient does not have any chest pain but sometimes she had chest soreness from coughing. Baby aspirin was held as patient is started on Eliquis. 2 troponins 133, 122 decreasing trend suggestive of increased cardiac demand from pneumonia 11/08: Even after communication with the nursing staff not to do third troponin, it was ordered probably by night nurse and third troponin is the lowest 103 therefore it is futile test. Mildly irritated due to increased cardiac demand. 5. Chronic HFrEF and HFpEF: Last echo January 2023 showed EF 45%, LA severely enlarged. As patient's BP on lower side therefore will hold antihypertensive medications including Lasix. BNP elevated but chest x-ray and chest CT did not show pulmonary edema. 6. Dyslipidemia: On simvastatin continued. 7. Dementia with behavioral disturbances: 8. Hypertension: As mentioned above. Hold antihypertensive medications DVT prophylaxis, high risk: On low-dose Eliquis. Living will/advanced directive/end of life care: Patient does have living will or advanced directive. After discussion of benefits/risks procedures involved with full code, DNR CC arrest and DNR CC, the patient and her daughter POA present in the ED and agreed for DNR CC arrest with no intubation. Patient doesn't want artificial life support including intubation, tube feed, ventilator and/chest compression, central venous catheter, vasopressor and DC shock if needed Microbiology Past 72 Hours 11/07/24 15:25 Urine Catheter - Catheter Urine Culture - Final Culture exhibits no growth. 11/07/24 15:25 Urine Catheter - Catheter Legionella Antigen - Final 11/07/24 15:25 Urine Catheter - Catheter Streptococcus pneumoniae Antigen (M - Final 11/07/24 10:51 Blood Culture (Wb) - Arm Left Blood Culture - Preliminary No growth in 48 hours. 11/07/24 10:51 Blood Culture (Wb) - Arm Left Blood Culture - Preliminary No growth in 48 hours. 11/07/24 16:10 Nasal Secretion MRSA (PCR) - Final Meth. resistant Staph. aureus Laboratory Results 11/10/24 05:42: WBC 8.1, RBC 2.39 L, Hgb 7.3 L, Hct 24.2 L, MCV 101.3 H, MCH 30.5, MCHC 30.2 L, RDW Std Deviation 55.8 H, RDW Coeff of Alexandra 17.3 H, Plt Count 211, MPV 11.7, Immature Gran % (Auto) 2.700 H, Neut % (Auto) 74.9 H, Lymph % (Auto) 8.1 L, [place] % (Auto) 14.2 H, Eos % (Auto) 0.0, Baso % (Auto) 0.1, Absolute Neuts (auto) 6.1, Absolute Lymphs (auto) 0.66 L, Nucleated RBC % 0, S odium 149 H, Potassium 3.4, Chloride 117 H, Carbon Dioxide 21.3, Anion Gap 11, B UN 46 H, Creatinine 1.25 H, Estim Creat Clear Calc 38.81 L, Est GFR (MDRD) Non- Af 43 L, BUN/Creatinine Ratio 36.5 H, Glucose 142 H, Calcium 8.6, [place] [address] H
[2024-11-10] MEDS: Baclofen 10 MG Tablet 5 MG PO (17:49)
[2024-11-10 20:09] LABS: Vancomycin, Trough Level 15.2 ug/mL (5.0-15.0)
--- NOTE | 2024-11-10 20:13 | PCM.RX.CS ---
Consult Antibiotic Management Pharmacy has been consulted to manage selected antibiotic: Vancomycin Type of Intervention Type of Consult: Follow-up Suspected Infection Suspected Infection: Pneumonia Prior Doses of Antibiotics Prior Doses of Antibiotics Received/Current Regimen: Vancomycin 740 mg Q24H last dose given 11/09 @ 1942 Labs Labs: Sodium 149 mmol/L (133-145) H 11/10/24 05:42 Potassium 3.4 mmol/L (3.3-5.1) 11/10/24 05:42 Chloride 117 mmol/L (98-108) H 11/10/24 05:42 Carbon Dioxide 21.3 mmol/L (21.0-32.0) 11/10/24 05:42 Anion Gap 11 (5-15) 11/10/24 05:42 BUN 46 mg/dL (4-19) H 11/10/24 05:42 Creatinine 1.25 mg/dL (0.70-1.20) H 11/10/24 05:42 Est GFR (MDRD) Non-Af 43 (>60) L 11/10/24 05:42 BUN/Creatinine Ratio 36.5 RATIO (10-20) H 11/10/24 05:42 Glucose 142 mg/dL (70-99) H 11/10/24 05:42 Vancomycin Trough 15.2 ug/mL (5.0-15.0) H 11/10/24 19:23 Random Vancomycin 17.0 ug/mL (0.0-15.0) H 11/08/24 18:13 Microbiology Microbiology: Microbiology 11/07/24 15:25 Urine Catheter - Catheter Urine Culture - Final Culture exhibits no growth. 11/07/24 15:25 Urine Catheter - Catheter Legionella Antigen - Final 11/07/24 15:25 Urine Catheter - Catheter Streptococcus pneumoniae Antigen (M - Final 11/07/24 10:51 Blood Culture (Wb) - Arm Left Blood Culture - Preliminary No growth in 48 hours. 11/07/24 10:51 Blood Culture (Wb) - Arm Left Blood Culture - Preliminary No growth in 48 hours. 11/07/24 16:10 Nasal Secretion MRSA (PCR) - Final Meth. resistant Staph. aureus 11/07/24 09:35 Mucosa - Nose SARS-CoV-2, Influenza & RSV (PCR) - Final Dosing Weight Weight used for dosin kg Estimated Creatinine Clearance Estimated Creatinine Clearance: ~ 39 Goal Trough Goal Trough: 15-20 mcg/mL Pharmacy Plan for Drug Dosing Pharmacy Plan for Drug Dosing: Vancomycin trough = 15.2, continue current dosing Pharmacy Service will continue to monitor and adjust dosing as required. Follow-Up Labs Follow-Up Labs: Trough: Vancomycin Date/Time Labs Ordered Labs to be done on [date and time ordered]: 11/12 @ 1930
[2024-11-10] MEDS: Vancomycin HCl 750 MG in 0.9% Normal Saline (250mL Bag) 250 ML 250 MG IV (20:26)
[2024-11-10] MEDS: Latanoprost 0.005% 1 Bottle 1 DRP OPHTHALMIC (20:31)
[2024-11-10] MEDS: traZODone 50 MG Tablet PO (21:30)
[2024-11-10] MEDS: Gabapentin 100 MG Capsule PO (21:30)
[2024-11-10] MEDS: Atorvastatin Calcium 10 MG Tablet PO (21:32)
[2024-11-11] VITALS (11 sets, daily range): BP systolic 114–124; BP diastolic 49–99; PULSE 55–79; RESP 15–21; TEMP 36.2–36.6; O2SAT 92–97
[2024-11-11] MEDS: Piperacil/Tazobactam 3.375 GM in 0.9% Normal Saline (50mL MB+) 50 ML IV (05:07)
[2024-11-11] MEDS: Isosorbide DN 20 MG Tablet PO ×3 (05:08→19:59)
[2024-11-11] MEDS: Carbidopa/Levodopa 25/100 Tablet PO ×3 (05:08→16:39)
[2024-11-11] MEDS: Benzonatate 100 MG Capsule 200 MG PO ×3 (05:09→20:00)
[2024-11-11 06:00] LABS: Absolute Neutrophil Count 5.6 X10^3/uL (2.0-7.7); Basophil# 0.04 X10^3/uL; Basophil% 0.5 % (0-1); Eosinophil# 0.12 X10^3/uL; Eosinophils% 1.6 % (0-5); Hematocrit 25.6 % (37-47); Hemoglobin 7.6 g/dL (12.0-15.0); Lymphocyte % 10.4 % (19-41); Mean Corp Hgb Conc 29.7 g/dL (32-36); Mean Corpuscular Hgb 30.6 pg (27.0-32.0); Mean Corpuscular Volume 103.2 fL (81-99); Monocyte# 0.82 X10^3/uL; Monocyte% 10.6 % (0-10); NRBC Flagged by Analyzer 0.6 % (0-5); Neutrophil # 5.63 X10^3/uL (2.7-7.7); POSITIVE COUNT YES; Platelet Count 180 K/mm3 (150-450); RBC Distribution Width CV 17.7 % (11.6-14.6); RBC Distribution Width SD 58.4 fl (35.1-43.9); Red Blood Count 2.48 M/mm3 (4.2-5.4); White Blood Count 7.7 K/mm3 (4.4-11.0)
[2024-11-11 07:01] LABS: Anion Gap UNABLE TO CALCULATE (5-15); BUN 30 mg/dL (4-19); BUN/Creat Ratio 25.2 RATIO (10-20); Calcium,Total 8.5 mg/dL (7.6-11.0); Carbon Dioxide 16.3 mmol/L (21.0-32.0); Creatinine, Serum 1.19 mg/dL (0.70-1.20); EST Glomerular Filtration Rate 45 (>60); Estimated Creatinine Clearance 40.77 ml/min (50-250); Glucose 119 mg/dL (70-99)
[2024-11-11 07:16] LABS: Chloride 110 mmol/L (98-108); Potassium 2.9 mmol/L (3.3-5.1); Sodium Level 140 mmol/L (133-145)
[2024-11-11] MEDS: Budesonide Respules 0.5 MG/2 ML AMPUL.NEB. INHALATION ×2 (07:27→20:26)
[2024-11-11] MEDS: Ipratropium/Albuterol Sulfate 3 ML AMPUL.NEB INHALATION ×3 (07:27→20:25)
[2024-11-11 07:30] LABS: Differential Indicated SCAN CRITERIA MET
[2024-11-11 07:33] LABS: Ovalocyte 1+; Platelet Estimate A (ADEQ); Polychromasia 1+; Tear Drop Cell 1+
[2024-11-11 07:34] LABS: Platelet Morphology CLUM
[2024-11-11] MEDS: BRIMONIDINE 0.2% 5ML BOTTLE 1 DRP OPHTHALMIC (08:18)
[2024-11-11] MEDS: Sertraline 100 MG Tablet PO (08:18)
[2024-11-11] MEDS: Baclofen 10 MG Tablet 5 MG PO (08:18)
[2024-11-11] MEDS: guaiFENesin 600 MG Tablet PO (08:18)
[2024-11-11] MEDS: Polyethylene Glycol 3350 17 GM PACKET PO (08:19)
[2024-11-11] MEDS: Menthol/Lanolin/Calamine/Znox 113 GM Tube 1 APPLIC TOPICAL ×2 (08:19→20:00)
[2024-11-11] MEDS: Montelukast 10 MG Tablet PO (08:19)
--- NOTE | 2024-11-11 08:22 | PCM.PN.HOSP ---
Reason for Visit Reason for Visit: Diagnoses Sepsis, unspecified organism (11/07/24) Pneumonia, unspecified organism (11/07/24) Dysphagia, unspecified (11/07/24) Objective Data Objective Data Vital Signs: Vital Signs Temp Pulse Resp BP Pulse Ox O2 Del Method O2 Flow Rate 98 F 62 16 124/67 H 94 Nasal Cannula 3 11/11/24 02:13 11/11/24 02:13 11/11/24 02:13 11/11/24 02:13 11/11/24 02:13 11/11/24 02:13 11/11/24 02:13 Oxygen Flow Rate (L/min) 3 Oxygen Delivery Method Nasal Cannula Weight: 216 lb 7.903 oz Body Mass Index (BMI) 37.1 Intake & Output: Intake and Output for Last 24 Hours 11/09/24 11/10/24 11/11/24 23:59 23:59 23:59 Intake Total 2452.50 / 2452.50 3745.0 / 3745.0 290 / 290 Output Total 500 / 500 Balance 2452.50 / 2452.50 3245.0 / 3245.0 290 / 290 Lab / Micro Data 11/11/24 05:26 11/11/24 05:26 Labs: Laboratory Results - last 24 hr 11/10/24 05:42: [place] [address] H 11/10/24 19:23: Vancomycin Trough 15.2 H 11/11/24 05:26: WBC 7.7, RBC 2.48 L, Hgb 7.6 L, Hct 25.6 L, MCV 103.2 H, MCH 30.6, MCHC 29.7 L, RDW Std Deviation 58.4 H, RDW Coeff of Alexandra 17.7 H, Plt Count 180, MPV TNP, Immature Gran % (Auto) 3.900 H, Neut % (Auto) 73.0 H, Lymph % (Auto) 10.4 L, [place] % (Auto) 10.6 H, Eos % (Auto) 1.6, Baso % (Auto) 0.5, Absolute Neuts (auto) 5.6, Absolute Lymphs (auto) 0.80 L, Nucleated RBC % 0.6, Platelet Estimate A, Plt Morphology Comment CLUM, Polychromasia 1+, Tear Drop Cells 1+, Ovalocytes 1+, Sodium 140, Potassium 2.9 L, Chloride 110 H, Carbon Dioxide 16.3 L, Anion Gap UNABLE TO CALCULATE L, BUN 30 H, Creatinine 1.19, Estim Creat Clear Calc 40.77 L, Est GFR (MDRD) Non-Af 45 L, BUN/Creatinine Ratio 25.2 H, Glucose 119 H, Calcium 8.5 Micro: Microbiology 11/07/24 15:25 Urine Catheter - Catheter Urine Culture - Final Culture exhibits no growth. 11/07/24 15:25 Urine Catheter - Catheter Legionella Antigen - Final 11/07/24 15:25 Urine Catheter - Catheter Streptococcus pneumoniae Antigen (M - Final 11/07/24 10:51 Blood Culture (Wb) - Arm Left Blood Culture - Preliminary No growth in 48 hours. 11/07/24 10:51 Blood Culture (Wb) - Arm Left Blood Culture - Preliminary No growth in 48 hours. 11/07/24 16:10 Nasal Secretion MRSA (PCR) - Final Meth. resistant Staph. aureus 11/07/24 09:35 Mucosa - Nose SARS-CoV-2, Influenza & RSV (PCR) - Final Radiography Diagnostic Testing: Radiology Impression Chest X-Ray 11/10/24 13:15 IMPRESSION: Persistent residual pleural-parenchymal changes at the left lung base although there has been improvement as compared to prior study. Reading Location: [place] [address] Rhythm Strip Rhythm Strip: A-fib Rate: 61 Ectopy: None Physical Exam Narrative Seen and examined Was evaluated by SIGHTSEEING GUIDE, and his spirits are and advised clear liquid. Patient still having difficulty in swallowing. Has motility disorder. Started on isosorbide and baclofen. Shortness of breath is better. Was evaluated by speech therapist with MBS which showed esophageal retention and vomiting after 4 sips and 2 bites. Physical exam General: Awake, alert, oriented x3, Cooperative. Frail and fatigued HEENT: Atraumatic, PERRLA, EOMI, Normocephalic Oral: Oral mucosa dry. No Gingival or Mucosal Lesions/ Ulcerations Neck: Supple, No JVD, Negative Carotid Bruits Chest wall/Lungs: Air entry severely diminished in bilateral lung bases. bilateral coarse crepitation Cardiovascular: Irregular rhythm, Normal S1, Normal S2, No M/G/R Abdomen: Bowel Sounds Present, Soft, Non Tender, Non-Distended : No dysuria. No renal angle tenderness. No suprapubic tenderness. Extremities: No edema, Capillary Refill Less than 3 Seconds Skin: No rashes, No breakdown Musculoskeletal: Bilateral TKR. No Tenderness to Palpation of Joints or Extremities Neurological: Cranial nerves II-XII grossly intact, DTR 2+/4. No acute focal neurological deficit. Psych/Mental Status: Flat affect, dementia Assessment & Plan Assessment/Plan (1) Pneumonia: PLAN: Plan This 84-year-old female being admitted for pneumonia and hypoxia 1. SARS due to left lower lobe, healthcare associated pneumonia/aspiration pneumonia: Patient is being admitted in PCU. She was tachypneic, hypoxia, leukocytosis, 2.8% immature granulocytes, suggestive of left shift but no hypotension or lactic acidosis. Does not meet criteria for sepsis. Chest CT without contrast initially reviewed and shows left lower lobe infiltrate and chronic changes of COPD, official report pending. Patient started on IV vancomycin and Zosyn. Pneumonia workup including MRSA nasal screen ordered. Triple PCR for SARS-CoV-2, flu and RSV are negative Patient was last admitted in September for community-acquired pneumonia. 11/08: MRSA nasal screen all came positive. Patient on vancomycin since admission. Data Center Project Manager consulted and reviewed. Left lower lobe pneumonia most likely due to aspiration pneumonia. Patient also had esophageal retention and vomiting during modified barium swallow. Made n.p.o. GI consulted. 11/09: ID consult requested to plan of discharge antibiotic whether IV vancomycin or linezolid 11/10: Urine culture shows no growth. Urinary antigens negative. Blood culture negative for more than 48 Dysphagia: EGD today, 11/09/2024. Recommended to continue medication. Advance diet as recommended by speech therapist. Impressions : - Abnormal esophageal motility, consistent with achalasia. Biopsied. Dilated. - Chronic gastritis. - No gross lesions in the duodenal bulb. 11/10: Esophageal motility disorder but unclear the classification as she will need motility study as an outpatient. Discussed with Dr. Barth. Changed Imdur to Isordil 20 mg 3 times daily. Also started on baclofen 5 mg 3 times daily. Discussed with the speech therapist. 11/11: Patient had repeat modified barium swallow but was not good with poor esophageal clearance of 1 bite. Still recommends full liquid thin consistency only. Okay for medications crushed in applesauce. Baclofen increased to 10 mg 3 times daily LANDON on CKD 3B: Patient's baseline creatinine is elevated about 1.26-1.5. Patient admitted with 2.67, currently improving 1.67. Serum potassium low 2.8. Potassium is getting replaced. Hypernatremia and hyperchloremia. D5W ordered. Patient n.p.o. but it diet as per speech therapist after EGD. Monitor intake and output. Hypernatremia and hyperchloremia due to insufficient fluid intake: Patient's lungs sound wet and wastarted on IV fluid D5 half NS yesterday. Lasix 40 mg IV given. Chest x-ray done after Lasix which shows persistent residual pleural-parenchymal changes at left lung base and the mild improvement. Right lung clear. IV fluid D5 at 75 mL/h. 11/11: Sodium 140. Hypernatremia corrected. Severe hypokalemia, K2.9. IV potassium ordered. Serum magnesium and phosphorus ordered 2. Mild COPD exacerbation due to pneumonia: COPD exacerbation as evidenced by increased shortness of breath, dyspnea and cough. Patient is being managed on scheduled bronchodilator, IV Solu-Medrol, Mucinex, incentive spirometry and Pep. 11/08: COPD exacerbation got much better. IV Solu-Medrol discontinued. Risk of worsening of pneumonia on steroid therefore steroid discontinued 3. Unclear whether new onset or paroxysmal A-fib: Patient's daughter said she had A-fib in the past. Twelve-lead EKG shows A-fib at 61 beats minute. Patient not on anticoagulant but on baby aspirin. Discussed the risk, benefit and monitoring of anticoagulant patient daughter agreed. Low-dose Eliquis 2.5 mg twice daily started. 4. CAD status post CABG x 2: Patient does not have any chest pain but sometimes she had chest soreness from coughing. Baby aspirin was held as patient is started on Eliquis. 2 troponins 133, 122 decreasing trend suggestive of increased cardiac demand from pneumonia 11/08: Even after communication with the nursing staff not to do third troponin, it was ordered probably by night nurse and third troponin is the lowest 103 therefore it is futile test. Mildly irritated due to increased cardiac demand. 5. Chronic HFrEF and HFpEF: Last echo January 2023 showed EF 45%, LA severely enlarged. As patient's BP on lower side therefore will hold antihypertensive medications including Lasix. BNP elevated but chest x-ray and chest CT did not show pulmonary edema. 6. Dyslipidemia: On simvastatin continued. 7. Dementia with behavioral disturbances: 8. Hypertension: As mentioned above. Hold antihypertensive medications DVT prophylaxis, high risk: On low-dose Eliquis. Living will/advanced directive/end of life care: Patient does have living will or advanced directive. After discussion of benefits/risks procedures involved with full code, DNR CC arrest and DNR CC, the patient and her daughter WILBERT present in the ED and agreed for DNR CC arrest with no intubation. Patient doesn't want artificial life support including intubation, tube feed, ventilator and/chest compression, central venous catheter, vasopressor and DC shock if needed Microbiology Past 72 Hours 11/07/24 15:25 Urine Catheter - Catheter Urine Culture - Final Culture exhibits no growth. 11/07/24 15:25 Urine Catheter - Catheter Legionella Antigen - Final 11/07/24 15:25 Urine Catheter - Catheter Streptococcus pneumoniae Antigen (M - Final 11/07/24 10:51 Blood Culture (Wb) - Arm Left Blood Culture - Preliminary No growth in 48 hours. 11/07/24 10:51 Blood Culture (Wb) - Arm Left Blood Culture - Preliminary No growth in 48 hours. 11/07/24 16:10 Nasal Secretion MRSA (PCR) - Final Meth. resistant Staph. aureus Laboratory Results 11/10/24 05:42: WBC 8.1, RBC 2.39 L, Hgb 7.3 L, Hct 24.2 L, MCV 101.3 H, MCH 30.5, MCHC 30.2 L, RDW Std Deviation 55.8 H, RDW Coeff of Alexandra 17.3 H, Plt Count 211, MPV 11.7, Immature Gran % (Auto) 2.700 H, Neut % (Auto) 74.9 H, Lymph % (Auto) 8.1 L, [place] % (Auto) 14.2 H, Eos % (Auto) 0.0, Baso % (Auto) 0.1, Absolute Neuts (auto) 6.1, Absolute Lymphs (auto) 0.66 L, Nucleated RBC % 0, Sodium 149 H, Potassium 3.4, Chloride 117 H, Carbon Dioxide 21.3, Anion Gap 11, BUN 46 H, Creatinine 1.25 H, Estim Creat Clear Calc 38.81 L, Est GFR (MDRD) Non-Af 43 L, BUN/Creatinine Ratio 36.5 H, Glucose 142 H, Calcium 8.6, [place] [address] H Charges/Coding Visit Charges Inpatient E&M: 63649 Subs Hosp L2
[2024-11-11] MEDS: Pantoprazole Sodium 40 MG in 0.9% Normal Saline (100mL MB+) 100 ML 330 MG IV (08:26)
[2024-11-11 08:42] LABS: Magnesium 2.3 mg/dL (1.5-2.2); Phosphorus 1.9 mg/dL (2.7-4.5)
[2024-11-11] MEDS: Potassium Chloride 10mEq/100mL 10 MEQ/100 ML IV.SOLN. 100 MEQ IV BOLUS ×4 (09:24→13:28)
--- NOTE | 2024-11-11 10:26 | PCM.PN.TICU ---
Objective Data Objective Data Vital Signs: Vital Signs Last response Temperature 36.2 C L 11/11/24 08:15 Temperature Source Oral 11/11/24 08:15 Pulse Rate 76 11/11/24 08:15 Pulse Strength Normal (2+) 11/11/24 08:14 Respiratory Rate 15 11/11/24 08:15 Respiratory Effort Normal, Non-Labored 11/11/24 09:37 Respiratory Depth Normal 11/11/24 09:37 Respiratory Pattern Normal 11/11/24 09:37 Blood Pressure 124/99 H 11/11/24 08:15 Blood Pressure Mean 107 11/11/24 08:15 Blood Pressure Source Monitor 11/11/24 08:15 Blood Pressure Position Supine 11/11/24 08:15 Blood Pressure Location Left Arm 11/11/24 08:15 Baseline BP 155/75 11/09/24 14:35 Pulse Ox 97 11/11/24 08:15 Oxygen Delivery Method Room Air 11/11/24 09:37 Oxygen Flow Rate (L/min) 2 11/11/24 08:15 I&O: I&O Last 24 Hours 11/10/24 11/10/24 11/11/24 11:59 23:59 11:59 Intake Total 2327.5 / 3745.0 1417.5 / 3745.0 1420 / 1420 Output Total 500 / 500 Balance 2327.5 / 3245.0 917.5 / 3245.0 1420 / 1420 I&O: Total Stay 11/07/24 08:56 thru 11/11/24 10:24 Intake Total 9982.50 Output Total 1000 Balance 8982.50 Current Meds Ordered / Administered: Current meds ordered / Administered Generic Name Dose Route Start Last Admin Trade Name Freq PRN Reason Stop Dose Admin Acetaminophen 1,000 mg 11/07/24 12:49 Acetaminophen 500 Mg Tablet PO Q8H PRN PRN Pain Score 1-10 Albuterol/Ipratropium 3 ml 11/07/24 13:30 11/11/24 07:27 Ipratropium/Albuterol Sulfate 3 Ml Ampul.Neb INHALATION 3 ml Q6HWA.RT JOSEY Administration Artificial Tears 1 drp 11/07/24 13:15 Carboxymethylcellulose Sodium 15 Ml Ophth Drops EACH EYE Q2H PRN DRY EYES Atorvastatin Calcium 10 mg 11/07/24 22:00 11/10/24 21:32 Atorvastatin Calcium 10 Mg Tablet PO 10 mg QHS JOSEY Administration Baclofen 5 mg 11/10/24 17:00 11/11/24 08:18 Baclofen 10 Mg Tablet PO 5 mg TIDCM JOSEY Administration Benzonatate 200 mg 11/07/24 14:00 11/11/24 05:09 Benzonatate 100 Mg Capsule PO 200 mg TID JOSEY Administration Bisacodyl 10 mg 11/07/24 12:49 Bisacodyl 10 Mg Suppository RC DAILY PRN CONSTIPATION Brimonidine Tartrate 1 drp 11/08/24 10:00 11/11/24 08:18 Brimonidine 0.2% 5ml Bottle OPHTHALMIC 1 drp DAILY JOSEY Administration Budesonide 0.5 mg 11/09/24 15:45 11/11/24 07:27 Budesonide Respules 0.5 Mg/2 Ml Ampul.Neb. INHALATION 0.5 mg BID.RT JOSEY Administration Calamine/Phenol 1 applic 11/07/24 22:00 11/11/24 08:19 Menthol/Lanolin/Calamine/Znox 113 Gm Tube TOPICAL 1 applic BID JOSEY Administration Protocol Carbidopa/Levodopa 2 tablet 11/07/24 16:00 11/11/24 05:08 Carbidopa/Levodopa 25/100 Tablet PO 2 tablet TIDAC JOSEY Administration Diphenhydramine HCl 12.5 mg 11/07/24 13:12 11/08/24 21:41 Diphenhydramine 12.5 Mg/5 Ml Udc PO 12.5 mg DAILY PRN Administration allergy symptoms Ferrous Sulfate 325 mg 11/08/24 12:00 11/10/24 14:42 Ferrous Sulfate 325 Mg Tablet PO 325 mg Q48@1200 JOSEY Administration Gabapentin 100 mg 11/07/24 22:00 11/10/24 21:30 Gabapentin 100 Mg Capsule PO 100 mg QHS JOSEY Administration Guaifenesin 600 mg 11/07/24 22:00 11/11/24 08:18 Guaifenesin 600 Mg Tablet PO 600 mg BID JOSEY Administration Vancomycin IV-PHARMACY TO DOSE 500 mls @ 250 mls/hr 11/07/24 13:00 1 each/ Sodium Chloride IV PRN PRN RX TO DOSE Protocol Vancomycin HCl 750 mg/ Sodium 265 mls @ 250 mls/hr 11/08/24 20:00 11/10/24 21:43 Chloride IV Infused Q24H JOSEY Infusion Pantoprazole Sodium 40 mg/ 110 mls @ 330 mls/hr 11/09/24 10:00 11/11/24 10:10 Sodium Chloride IV Infused Q24 JOSEY Infusion Piperacillin Sod/Tazobactam 50 mls @ 12.5 mls/hr 11/09/24 08:30 11/11/24 10:10 Sod 3.375 gm/ Sodium Chloride IV Infused Q8 JOSEY Infusion Potassium Chloride 10 meq in 100 mls @ 100 mls/hr 11/11/24 09:00 11/11/24 09:24 IV BOLUS 11/11/24 12:59 100 mls/hr Q1H JOSEY Administration Isosorbide Dinitrate 20 mg 11/10/24 14:00 11/11/24 05:08 Isosorbide Dn 20 Mg Tablet PO 20 mg TID JOSEY Administration Protocol Latanoprost 1 drp 11/07/24 21:00 11/10/24 20:31 Latanoprost 0.005% 1 Bottle OPHTHALMIC 1 drp QPM JOSEY Administration Montelukast Sodium 10 mg 11/08/24 10:00 11/11/24 08:19 Montelukast 10 Mg Tablet PO 10 mg DAILY JOSEY Administration Nitroglycerin 0.4 mg 11/07/24 12:49 Nitroglycerin (Inpatient Use) 0.4 Mg Tab.Subl SL Q5M PRN CHEST PAIN Polyethylene Glycol 17 gm 11/08/24 10:00 11/11/24 08:19 Polyethylene Glycol 3350 17 Gm Packet PO 17 gm DAILY JOSEY Administration Sertraline HCl 100 mg 11/08/24 10:00 11/11/24 08:18 Sertraline 100 Mg Tablet PO 100 mg DAILY JOSEY Administration Trazodone HCl 50 mg 11/07/24 22:00 11/10/24 21:30 Trazodone 50 Mg Tablet PO 50 mg QHS [facility] Administration Vancomycin Protocol 1 lab 11/12/24 17:30 Vancomycin Trough/Random Due MC 11/12/24 21:30 DAILY [facility] Lab / Micro Data 11/11/24 05:26 11/11/24 05:26 Labs: Laboratory Results - last 24 hr 11/10/24 05:42: [place] [address] H 11/10/24 19:23: Vancomycin Trough 15.2 H 11/11/24 05:26: WBC 7.7, RBC 2.48 L, Hgb 7.6 L, Hct 25.6 L, MCV 103.2 H, MCH 30.6, MCHC 29.7 L, RDW Std Deviation 58.4 H, RDW Coeff of Alexandra 17.7 H, Plt Count 180, MPV TNP, Immature Gran % (Auto) 3.900 H, Neut % (Auto) 73.0 H, Lymph % (Auto) 10.4 L, [place] % (Auto) 10.6 H, Eos % (Auto) 1.6, Baso % (Auto) 0.5, Absolute Neuts (auto) 5.6, Absolute Lymphs (auto) 0.80 L, Nucleated RBC % 0.6, Platelet Estimate A, Plt Morphology Comment CLUM, Polychromasia 1+, Tear Drop Cells 1+, Ovalocytes 1+, Sodium 140, Potassium 2.9 L, Chloride 110 H, Carbon Dioxide 16.3 L, Anion Gap UNABLE TO CALCULATE L, BUN 30 H, Creatinine 1.19, Estim Creat Clear Calc 40.77 L, Est GFR (MDRD) Non-Af 45 L, BUN/Creatinine Ratio 25.2 H, Glucose 119 H, Calcium 8.5, Phosphorus 1.9 L, Magnesium 2.3 H Micro: Microbiology 11/07/24 15:25 Urine Catheter - Catheter Urine Culture - Final Culture exhibits no growth. 11/07/24 15:25 Urine Catheter - Catheter Legionella Antigen - Final 11/07/24 15:25 Urine Catheter - Catheter Streptococcus pneumoniae Antigen (M - Final Rhythm Strip Rhythm Strip: A-fib Rate: 61 Ectopy: None Imaging Radiology Impression Chest X-Ray 11/10/24 13:15 IMPRESSION: Persistent residual pleural-parenchymal changes at the left lung base although there has been improvement as compared to prior study. Reading Location: [facility] reviewed personally and with family at bedside: dense consolidation in LLL with underlying parenchymal tissue loss as would be seen in emphysema Assessment and Plan . Assessment and plan: Pulmonary Problems: Acute hypoxemic respiratory failure LLL PNA Atelectasis Plan: Aggressive volume expansion from Chest PT and use of incentive spirometry PT/OT consultation Defer acetylcysteine neb as she is improving clinically, but reinitiate dual bronchodilator hand held inhalers, Anoro Ellipta 62.5/25 daily or comparable LABA-LAMA combination Make duonebs PRN i.e. deescalate Lance Crewmember likely DC vancomycin Continue zosyn as per primary Signing Off Jose Rafael Muir MD [facility] Access [employer] The entirety of this encounter was done via Telemedicine Physical Exam Const alert, oriented x3 and no apparent distress General Appearance: cooperative, well developed, lethargic, ill appearing and frail HEENT normocephalic, head/scalp atraumatic and moist oral mucous membranes General Ear: hearing grossly impaired Mouth: oral and palatal mucosa normal Throat: posterior oropharynx normal Eyes PERRL, EOMs intact bilaterally, conjunctivae normal and no scleral icterus Neck full ROM, no lymphadenopathy, supple and no JVD Resp Resp Narrative: shallow inspiratory effort Effort and Inspection: able to speak in complete sentences and tachypneic Auscultation: rales and diminished lung sounds Cardio regular rate and regular rhythm GI normal to inspection, nondistended, normoactive bowel sounds, soft to palpation and non-tender no CVA tenderness Extremity no clubbing, cyanosis or edema Skin no rashes or lesions noted Neuro oriented x3, CN's II-XII intact bilaterally, moves all extremities and no focal motor deficits Psych cooperative Psych Narrative: appears a little apathetic Subjective Subjective CC: Tired/fatigued HPI: 84yoF with pneumonia and needing supplemnetal O2 for hypoxemic RF 11/10 - EGD suggestive of achalasia 11/11 - patient taken off 2LNC and on RA. Has not been using ICS or acapella device as directed. When tested, hitting only 750 on incentive macho. Otherwise eranndez a wet cough but unable to fully expectorate. ROS: 10 or more systems reviewed with her and all are negative except as per HPI
--- NOTE | 2024-11-11 10:58 | CASEMGMT ---
Discharge Planning Updates sent to Krystle @ [place]. Fax confirmation rec'd. Tamara Hines DC Planning Asst.
[2024-11-11] MEDS: Baclofen 10 MG Tablet PO ×2 (11:02→16:39)
--- NOTE | 2024-11-11 11:29 | SP.MBSS_ITS ---
Modified Barium Swallow Patient Information Study Date: 11/11/24 Study Time: 10:30 Direct Billable Minutes: 109 Total Minutes procedure & reportin Diagnosis: Dysphagia R13.10 Referring Physician: Apollo Dinh Reason for Referral: Assess swallow function, assess risk for aspiration, and determine recommendations for least restrictive diet textures and compensatory strategies to facilitate safe po intake. Medical History: Pt is an 84-year-old female w/ PMH below (See EMR for full PMH) who was brought to ED 11/07/2024 with hypoxia and hypotension from halfway. Patient was also tachypneic, heart rate 100/min. She was discharged 2 weeks ago from [facility] with oxygen as needed to do physical therapy but for 2 to 3 days before this admission, she required O2 24/7 (2-3L). Pt has also had productive cough since last hospitalization. Pt admitted to PCU for management of PNA. Pt's ST from SNF contacted this UNIT RECEPTIONIST and recommended MBSS due to concerns for esophageal dysphagia. The patient had a MBSS completed at [facility] ~1 month ago that did not include esophageal screens. This UNIT RECEPTIONIST deferred BSE and recommended MBSS. MBSS 11/08/2024 revealed mild oropharyngeal dysphagia and significant esophageal dysphagia w/ vomiting during MBSS. EGD 11/12/2024, pt's esophagus was dilated, dysmotility concerning for achalasia per EGD report. Bedside trials w/ UNIT RECEPTIONIST 11/12/2024 resulted in vomiting. Pt placed on medication to attempt improving suspected achalasia w/ plan for repeat MBSS today. PMH: DNR, Hypoxia, PNA, CHF, COVID-19, COPD, Acute respiratory failure with hypoxia, HFrEF (heart failure with reduced ejection fraction), CAD, HLD, Acute UTI, Weakness, Depression, Wears dentures and glasses, Forgetfulness, Anxiety, Lichen sclerosus, Hx of renal disease, Low iron, PE, DVT, Hx of diverticulitis, SOB on exertion, Hx of heart attack, Hx of intestinal obstruction, History of left heart catheterization (~11/05/21), HTN, Anemia, Asthma, Hx of TIA, Myalgia, Glaucoma, Osteoporosis, CKD stage 3, Scleroderma. Current Diet Ordered: Clear liquids Dentition: Upper Dentures Respiratory Status: Oxygenating on Room Air Penetration-Aspiration Scale Penetration-Aspiration Scale: OBJECTIVE ASSESSMENT OF SWALLOW FUNCTION (QUANTITATIVE ? PER TRIAL): PENETRATION / ASPIRATION SCALE (AMAYA): 1 = does not enter airway 2 = enters airway/above vocal folds/ejected 3 = enters airway/above vocal folds/not ejected 4 = enters airway/contacts vocal folds/ejected 5 = enters airway/contacts vocal folds/not ejected 6 = enters airway/below vocal folds/ejected 7 = enters airway/below vocal folds/not ejected despite effort 8 = enters airway/below vocal folds/no effort VIDEOFLOROSCOPIC SCALE SCORE (AMAYA): Grade I = aspiration of material that has penetrated into the laryngeal vestibule, intact cough reflex Grade II = aspiration < 10 % of the bolus, intact cough reflex Grade III = aspiration of < 10 % of the bolus, reduced cough reflex or aspiration of > 10 % of the bolus, intact cough reflex Grade IV = aspiration of > 10 % of the bolus, reduced cough reflex Penetration-Aspiration Scale Score Thin Liquid via teaspoon: Result: 4= enters airway/contacts vocal folds/ejected Thin Liquid via teaspoon Trial 2: Result: 2= enter airway/above vocal folds/ejected Thin Liquid via single sip: straw: Result: 2= enter airway/above vocal folds/ejected Comment: Esophageal screen - Esophageal retention w/ retrograde flow to the middle esophagus. Pudding via teaspoon: Result: 1= does not enter airway Comment: Esophageal screen - Esophageal retention w/ retrograde flow to the upper esophagus. Thin Liquid via single sip: straw Trial 2: Result: 2= enter airway/above vocal folds/ejected Comment: Esophageal screen - Somewhat improved clearance of pudding; however, continued retention of barium (likely pudding and liquid) in the esophagus. Oral Phase Labial Seal: Interlabial escape, no progression to anterior lip Tongue Control During Bolus Hold: Posterior escape of greater than half of bolus Bolus Transport/Lingual Motion: Slowed tongue motion Oral Residue: Trace residue lining oral structures Pharyngeal Phase Initiation of Pharyngeal Swallow: Bolus head in pyriforms Soft Palate Elevation: No bolus between soft palate and pharyngeal wall Laryngeal Elevation: Comp. Superior move thyroid cart w/comp. apprx arytenoid cart-epig pet Anterior Hyoid Excursion: Partial anterior movement Epiglottic Movement: Complete inversion Laryngeal Vestibule Closure at Height of Swallow: Incomplete; narrow column of air/contrast in laryngeal vestibule (laryngeal penetration of thin by tsp w/ complete ejection) Pharyngoesophageal Segment Opening: Complete distension and complete duration; no obstruction of flow Tongue Base Retraction: Trace column of contrast between tongue base & post. pharyngeal wall Pharyngeal Residue: Trace residue within or on pharyngeal structures Esophageal Phase Esophageal Clearance: Esophageal retention w/ retrograde flow below pharyngoesophageal seg. Diagnosis/Impression Diagnosis: Mild oropharyngeal dysphagia R13.12; Esophageal dysphagia R13.14 Impression: The oral phase is primarily marked by... -Decreased bolus control w/ posterior loss of >1/2 the bolus to the pyriforms prior to swallow onset. -Trace oral residue. -Slowed tongue motion for A-P transport. -Did not assess mastication as pt was not appropriate for cookie due to poor esophageal clearance of pudding. The pharyngeal phase is primarily marked by... -Delayed swallow onset. -Spillage of thin by tsp to the laryngeal vestibule prior to swallow onset resulting in laryngeal penetration w/ complete ejection during the swallow. Continued consistent laryngeal penetration of thin liquids w/ complete ejection. No aspiration observed during the study; however, the patient is at high risk for reflux aspiration. The esophageal phase is primarily marked by... -The esophagus appears tortuous. -Retention of pudding in the esophagus w/ retrograde flow to the upper esophagus, which somewhat cleared w/ thin liquid wash. -Retention of thin liquids w/ retrograde flow to the middle esophagus. Recommendations Diet: Thin Liquids Comment: Full liquids - THIN CONSISTENCIES ONLY Meds crushed in applesauce w/ thin liquid wash Hold full thin liquid meal if increased s/s of reflux, sensation of retention, or regurgitation despite use of strategies listed below and resume meal at a later time due to high risk for reflux aspiration. Compensatory Strategies: Small Sips, Slow Rate and Sitting upright (During and 30-60min after po intake) Supervision: 1:1 Direct Supervision Recommend Repeat Modified Barium Swallow: TBD Need for Skilled Speech Therapy Services: Yes Comment: -Train the patient, family, and staff in use of strategies to decrease risk for aspiration and reflux aspiration. -Ongoing assessment of diet tolerance of recommended textures. -Train the patient in oropharyngeal exercise program to improve bolus control, airway closure, swallow onset (lingual resistance, Gaby, effortful swallow) Education Completed: 1. Described result of evaluation., 4. Family/caregivers understand evaluation & agree w/ goals & tx plan. (UNIT RECEPTIONIST reviewed results and recommendations of MBSS w/ patient, patient's daughter, and patient's .) and 7. Pt requires further education on strategies & risks. Comment: UNIT RECEPTIONIST spoke w/ Dr. Dinh re: results of MBSS. Physician asked UNIT RECEPTIONIST if patient would be appropriate for PEG. UNIT RECEPTIONIST voiced concern that a PEG tube would not decrease the patient's risk for aspiration as she will still be at high risk for reflux aspiration. Status Active ST Patient: Active Contact Information [facility] Speech Therapy:: Laly Jones M.A. [facility]-UNIT RECEPTIONIST? Speech-Language Pathologist?? [facility] [address] [place] [address]? [email or web address]?? [phone]
--- NOTE | 2024-11-11 12:08 | PCM.PN.ID ---
Physical Exam Narrative Feeling better, no fever, breathing improved, no n/v/d. Const alert and no apparent distress General Appearance: cooperative Resp Auscultation: diminished lung sounds Cardio regular rate and regular rhythm GI soft to palpation, non-tender and non-distended Skin no rashes or lesions noted ID ID: Route of nutrition/ use of supplements: [] Nutritional Intake: [] IV Site: [] Douglas Catheter: [] Assessment & Plan Assessment/Plan (1) Dysphagia: (2) Sepsis: (3) Pneumonia: PLAN: On vanc/zosyn, cxs neg so far. MRSA pcr (+) of nares. Will narrow to doxy/augmentin for 3 more days abx. Will follow prn
--- NOTE | 2024-11-11 12:29 | CASEMGMT ---
Addendum entered by Tamara Hines 11/11/24 12:56: [facility] is unable to provide 1:1 supervision during meals. Per Krystle, if pt wishes to return, there are two options: 1-hospice w/pleasure foods 2-pt/family hire someone to supervise during meals. SW updated. Tamara Hines DC Planning Asst. Original Note: Discharge Planning Todays MBS results faxed to Krystle @ [facility]. Tamara Hines DC Planning Asst.
--- NOTE | 2024-11-11 14:41 | CASEMGMT ---
KAHLIL met with patient's daughter Sabine. KAHLIL explained to Sabine that per [facility] in order for patient to return she would either have to come on Hospice with pleasure feeds or family would have to hire someone to sit with patient during meals since she is direct supervision. KAHLIL explained that patient could also go to a half-way facility. Sabine felt this would really confuse patient. Sabine told SW to go ahead and make a hospice referral so she could at least talk with them and ask questions. KAHLIL explained how the process works and that someone from hospice would be calling her. KAHLIL called [facility] and spoke with Alyssia on the referral line. KAHLIL also faxed information. Physician and loom inspector notified. Jenn PATIÑO
[2024-11-11] MEDS: Acetaminophen 650 MG/20 ML UDC 1000 MG PO (14:42)
[2024-11-11] MEDS: 0.9% Saline Lock 10 ML Syringe IV (14:49)
--- NOTE | 2024-11-11 15:29 | CASEMGMT ---
Hospice called SW and let SW know they left a message for patient's daughter. Once she calls back they will arrange a meeting and notify SW. Jenn PATIÑO
--- NOTE | 2024-11-11 15:49 | CASEMGMT ---
Lorna from Hospice called SW and they will be meeting with patient and family 11-12 at 930a. SW will notify RN and primer charger. Jenn White PIT TANNER KAYLYN
[2024-11-11] MEDS: Amox/Clav 400mg/5ml Susp 875 MG PO (17:41)
[2024-11-11] MEDS: traZODone 50 MG Tablet PO (19:59)
[2024-11-11] MEDS: Gabapentin 100 MG Capsule PO (19:59)
[2024-11-11] MEDS: Doxycycline monohydrate 25 MG/5 ML SUSP. 100 MG PO (20:00)
[2024-11-11] MEDS: Atorvastatin Calcium 10 MG Tablet PO (20:00)
[2024-11-11] MEDS: Latanoprost 0.005% 1 Bottle 1 DRP OPHTHALMIC (20:00)
[2024-11-11] MEDS: guaiFENesin 10 ML UDC (200MG/10ML) PO (21:40)
[2024-11-12] VITALS (8 sets, daily range): BP systolic 134–158; BP diastolic 49–68; PULSE 58–80; RESP 16–20; TEMP 35.5–36.1; O2SAT 94–100; BMI 34.7
[2024-11-12 04:34] LABS: Absolute Lymphocyte Count 0.94 X10^3/uL (0.83-4.51); Absolute Neutrophil Count 7.1 X10^3/uL (2.0-7.7); Basophil# 0.05 X10^3/uL; Basophil% 0.5 % (0-1); Eosinophil# 0.23 X10^3/uL; Eosinophils% 2.5 % (0-5); Hematocrit 24.7 % (37-47); Hemoglobin 7.5 g/dL (12.0-15.0); Lymphocyte # 0.94 X10^3/ul (0.83-4.51); Lymphocyte % 10.1 % (19-41); Mean Corp Hgb Conc 30.4 g/dL (32-36); Mean Corpuscular Hgb 30.6 pg (27.0-32.0); Mean Corpuscular Volume 100.8 fL (81-99); Mean Platelet Vol. 11.5 fl (6.2-12.0); Monocyte# 0.53 X10^3/uL; Monocyte% 5.7 % (0-10); NRBC Flagged by Analyzer 0.8 % (0-5); Neutrophil # 7.14 X10^3/uL (2.7-7.7); Neutrophil % 76.8 % (47-70); Platelet Count 207 K/mm3 (150-450); RBC Distribution Width CV 17.2 % (11.6-14.6); RBC Distribution Width SD 55.8 fl (35.1-43.9); Red Blood Count 2.45 M/mm3 (4.2-5.4); White Blood Count 9.3 K/mm3 (4.4-11.0)
[2024-11-12 05:31] LABS: Anion Gap 12 (5-15); BUN 23 mg/dL (4-19); BUN/Creat Ratio 21.4 RATIO (10-20); Calcium,Total 8.9 mg/dL (7.6-11.0); Carbon Dioxide 20.5 mmol/L (21.0-32.0); Chloride 110 mmol/L (98-108); Creatinine, Serum 1.09 mg/dL (0.70-1.20); EST Glomerular Filtration Rate 50 (>60); Estimated Creatinine Clearance 44.51 ml/min (50-250); Glucose 101 mg/dL (70-99); Potassium 3.3 mmol/L (3.3-5.1); Sodium Level 142 mmol/L (133-145)
[2024-11-12] MEDS: Carbidopa/Levodopa 25/100 Tablet PO ×3 (06:19→16:02)
[2024-11-12] MEDS: Isosorbide DN 20 MG Tablet PO ×2 (06:20→21:25)
[2024-11-12] MEDS: Acetaminophen 650 MG/20 ML UDC 1000 MG PO (06:21)
[2024-11-12] MEDS: Ipratropium/Albuterol Sulfate 3 ML AMPUL.NEB INHALATION ×3 (07:24→19:07)
[2024-11-12] MEDS: Budesonide Respules 0.5 MG/2 ML AMPUL.NEB. INHALATION ×2 (07:25→19:08)
[2024-11-12] MEDS: Montelukast 10 MG Tablet PO (09:20)
[2024-11-12] MEDS: Baclofen 10 MG Tablet PO ×2 (09:20→16:02)
[2024-11-12] MEDS: Sertraline 100 MG Tablet PO (09:20)
[2024-11-12] MEDS: Pantoprazole Sodium 40 MG in 0.9% Normal Saline (100mL MB+) 100 ML 330 MG IV (09:46)
[2024-11-12] MEDS: Metoclopramide 10 MG/2 ML Vial IV (09:53)
[2024-11-12] MEDS: Amox/Clav 400mg/5ml Susp 875 MG PO ×2 (10:04→16:05)
[2024-11-12] MEDS: guaiFENesin 10 ML UDC (200MG/10ML) PO (10:07)
[2024-11-12] MEDS: Polyethylene Glycol 3350 17 GM PACKET PO (10:10)
[2024-11-12] MEDS: BRIMONIDINE 0.2% 5ML BOTTLE 1 DRP OPHTHALMIC (10:10)
--- NOTE | 2024-11-12 10:59 | CASEMGMT ---
Social Work- Hospice visit rescheduled for 4:30 today d/t illness of hospice worker. physician office secretary updated. NONI Coe
--- NOTE | 2024-11-12 12:50 | PCM.PN.HOSP ---
Reason for Visit Reason for Visit: Diagnoses Sepsis, unspecified organism (11/07/24) Pneumonia, unspecified organism (11/07/24) Dysphagia, unspecified (11/07/24) Objective Data Objective Data Vital Signs: Vital Signs Temp Pulse Resp BP Pulse Ox O2 Del Method O2 Flow Rate 96.3 F L 80 20 H 134/49 H 97 Nasal Cannula 2 11/12/24 09:18 11/12/24 09:18 11/12/24 09:18 11/12/24 09:18 11/12/24 09:18 11/12/24 10:00 11/12/24 09:18 Oxygen Flow Rate (L/min) 2 Oxygen Delivery Method Nasal Cannula Weight: 201 lb 15.095 oz Body Mass Index (BMI) 34.7 Intake & Output: Intake and Output for Last 24 Hours 11/10/24 11/11/24 11/12/24 23:59 23:59 23:59 Intake Total 3745.0 / 3745.0 2160 / 2160 210 / 210 Output Total 500 / 500 200 / 200 Balance 3245.0 / 3245.0 2160 / 2160 10 Lab / Micro Data 11/12/24 04:12 11/12/24 04:12 Labs: Laboratory Results - last 24 hr 11/12/24 04:12: WBC 9.3, RBC 2.45 L, Hgb 7.5 L, Hct 24.7 L, MCV 100.8 H, MCH 30.6, MCHC 30.4 L, RDW Std Deviation 55.8 H, RDW Coeff of Alexandra 17.2 H, Plt Count 207, MPV 11.5, Immature Gran % (Auto) 4.400 H, Neut % (Auto) 76.8 H, Lymph % (Auto) 10.1 L, Tillman % (Auto) 5.7, Eos % (Auto) 2.5, Baso % (Auto) 0.5, Absolute Neuts (auto) 7.1, Absolute Lymphs (auto) 0.94, Nucleated RBC % 0.8, Sodium 142, Potassium 3.3, Chloride 110 H, Carbon Dioxide 20.5 L, Anion Gap 12, BUN 23 H, Creatinine 1.09, Estim Creat Clear Calc 44.51 L, Est GFR (MDRD) Non-Af 50 L, BUN/Creatinine Ratio 21.4 H, Glucose 101 H, Calcium 8.9 Micro: Microbiology 11/07/24 10:51 Blood Culture (Wb) - Arm Left Blood Culture - Final No growth in 5 days. 11/07/24 10:51 Blood Culture (Wb) - Arm Left Blood Culture - Final No growth in 5 days. 11/07/24 15:25 Urine Catheter - Catheter Urine Culture - Final Culture exhibits no growth. 11/07/24 15:25 Urine Catheter - Catheter Legionella Antigen - Final 11/07/24 15:25 Urine Catheter - Catheter Streptococcus pneumoniae Antigen (M - Final 11/07/24 16:10 Nasal Secretion MRSA (PCR) - Final Meth. resistant Staph. aureus 11/07/24 09:35 Mucosa - Nose SARS-CoV-2, Influenza & RSV (PCR) - Final Rhythm Strip Rhythm Strip: A-fib Rate: 61 Ectopy: None Physical Exam Narrative Seen and examined Patient started vomiting in the morning. Reglan ordered because of its prokinetic effect though patient also on Sinemet. Was evaluated by DIRECTOR OF PRODUCT DESIGN, with history of esophageal retention and advised clear liquid. Patient still having difficulty in swallowing. Has motility disorder. Started on isosorbide and baclofen. Hospice care meeting in the morning which is postponed to the oxycodone 2.5 mg for moderate pain and 5 mg for severe pain respectively. Shortness of breath is better. Physical exam General: Awake, alert, oriented x3, Cooperative. Frail and fatigued HEENT: Atraumatic, PERRLA, EOMI, Normocephalic Oral: Oral mucosa dry. No Gingival or Mucosal Lesions/ Ulcerations Neck: Supple, No JVD, Negative Carotid Bruits Chest wall/Lungs: Air entry severely diminished in bilateral lung bases. bilateral coarse crepitation Cardiovascular: Irregular rhythm, Normal S1, Normal S2, No M/G/R Abdomen: Bowel Sounds Present, Soft, Non Tender, Non-Distended : No dysuria. No renal angle tenderness. No suprapubic tenderness. Extremities: No edema, Capillary Refill Less than 3 Seconds Skin: No rashes, No breakdown Musculoskeletal: Bilateral TKR. No Tenderness to Palpation of Joints or Extremities Neurological: Cranial nerves II-XII grossly intact, DTR 2+/4. No acute focal neurological deficit. Psych/Mental Status: Flat affect, dementia Assessment & Plan Assessment/Plan (1) Pneumonia: PLAN: Plan This 84-year-old female being admitted for pneumonia and hypoxia 1. SARS due to left lower lobe, healthcare associated pneumonia/aspiration pneumonia: Patient is being admitted in PCU. She was tachypneic, hypoxia, leukocytosis, 2.8% immature granulocytes, suggestive of left shift but no hypotension or lactic acidosis. Does not meet criteria for sepsis. Chest CT without contrast initially reviewed and shows left lower lobe infiltrate and chronic changes of COPD, official report pending. Patient started on IV vancomycin and Zosyn. Pneumonia workup including MRSA nasal screen ordered. Triple PCR for SARS-CoV-2, flu and RSV are negative Patient was last admitted in September for community-acquired pneumonia. 11/08: MRSA nasal screen all came positive. Patient on vancomycin since admission. Bioinformatics Developer consulted and reviewed. Left lower lobe pneumonia most likely due to aspiration pneumonia. Patient also had esophageal retention and vomiting during modified barium swallow. Made n.p.o. GI consulted. 11/09: ID consult requested to plan of discharge antibiotic whether IV vancomycin or linezolid 11/10: Urine culture shows no growth. Urinary antigens negative. Blood culture negative for more than 48 11/12: ID follow-up on 11/11. Narrow down antibiotic to doxycycline and Augmentin for 3 more days. Dysphagia: EGD today, 11/09/2024. Recommended to continue medication. Advance diet as recommended by speech therapist. Impressions : - Abnormal esophageal motility, consistent with achalasia. Biopsied. Dilated. - Chronic gastritis. - No gross lesions in the duodenal bulb. 11/10: Esophageal motility disorder but unclear the classification as she will need motility study as an outpatient. Discussed with Dr. Barth. Changed Imdur to Isordil 20 mg 3 times daily. Also started on baclofen 5 mg 3 times daily. Discussed with the speech therapist. 11/11: Patient had repeat modified barium swallow but was not good with poor esophageal clearance of 1 bite. Still recommends full liquid thin consistency only. Okay for medications crushed in applesauce. Baclofen increased to 10 mg 3 times daily 11/12: Reglan ordered for first prokinetic effect. 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 PEG tube also has risk of aspiration. 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 Patient admitted with 2.67, currently improving 1.67. Serum potassium low 2.8. Potassium is getting replaced. Hypernatremia and hyperchloremia. D5W ordered. Patient n.p.o. but it diet as per speech therapist after EGD. Monitor intake and output. 11/12: K3.3 potassium low normal. Creatinine on baseline 1.09. Hypernatremia and hyperchloremia due to insufficient fluid intake: Patient's lungs sound wet and wastarted on IV fluid D5 half NS yesterday. Lasix 40 mg IV given. Chest x-ray done after Lasix which shows persistent residual pleural-parenchymal changes at left lung base and the mild improvement. Right lung clear. IV fluid D5 at 75 mL/h. 11/11: Sodium 140. Hypernatremia corrected. Severe hypokalemia, K2.9. IV potassium ordered. Serum magnesium and phosphorus ordered 11/12: Sodium 142. 2. Mild COPD exacerbation due to pneumonia: COPD exacerbation as evidenced by increased shortness of breath, dyspnea and cough. Patient is being managed on scheduled bronchodilator, IV Solu-Medrol, Mucinex, incentive spirometry and Pep. 11/08: COPD exacerbation got much better. IV Solu-Medrol discontinued. Risk of worsening of pneumonia on steroid therefore steroid discontinued 3. Unclear whether new onset or paroxysmal A-fib: Patient's daughter said she had A-fib in the past. Twelve-lead EKG shows A-fib at 61 beats minute. Patient not on anticoagulant but on baby aspirin. Discussed the risk, benefit and monitoring of anticoagulant patient daughter agreed. Low-dose Eliquis 2.5 mg twice daily started. 4. CAD status post CABG x 2: Patient does not have any chest pain but sometimes she had chest soreness from coughing. Baby aspirin was held as patient is started on Eliquis. 2 troponins 133, 122 decreasing trend suggestive of increased cardiac demand from pneumonia 11/08: Even after communication with the nursing staff not to do third troponin, it was ordered probably by night nurse and third troponin is the lowest 103 therefore it is futile test. Mildly irritated due to increased cardiac demand. 5. Chronic HFrEF and HFpEF: Last echo January 2023 showed EF 45%, LA severely enlarged. As patient's BP on lower side therefore will hold antihypertensive medications including Lasix. BNP elevated but chest x-ray and chest CT did not show pulmonary edema. 6. Dyslipidemia: On simvastatin continued. 7. Dementia with behavioral disturbances: 8. Hypertension: As mentioned above. Hold antihypertensive medications DVT prophylaxis, high risk: On low-dose Eliquis. Living will/advanced directive/end of life care: Patient does have living will or advanced directive. After discussion of benefits/risks procedures involved with full code, DNR CC arrest and DNR CC, the patient and her daughter POA present in the ED and agreed for DNR CC arrest with no intubation. Patient doesn't want artificial life support including intubation, tube feed, ventilator and/chest compression, central venous catheter, vasopressor and DC shock if needed Microbiology Past 72 Hours 11/07/24 10:51 Blood Culture (Wb) - Arm Left Blood Culture - Final No growth in 5 days. 11/07/24 10:51 Blood Culture (Wb) - Arm Left Blood Culture - Final No growth in 5 days. 11/07/24 15:25 Urine Catheter - Catheter Urine Culture - Final Culture exhibits no growth. 11/07/24 15:25 Urine Catheter - Catheter Legionella Antigen - Final 11/07/24 15:25 Urine Catheter - Catheter Streptococcus pneumoniae Antigen (M - Final Laboratory Results 11/12/24 04:12: WBC 9.3, RBC 2.45 L, Hgb 7.5 L, Hct 24.7 L, MCV 100.8 H, MCH 30.6, MCHC 30.4 L, RDW Std Deviation 55.8 H, RDW Coeff of Alexandra 17.2 H, Plt Count 207, MPV 11.5, Immature Gran % (Auto) 4.400 H, Neut % (Auto) 76.8 H, Lymph % (Auto) 10.1 L, Tillman % (Auto) 5.7, Eos % (Auto) 2.5, Baso % (Auto) 0.5, Absolute Neuts (auto) 7.1, Absolute Lymphs (auto) 0.94, Nucleated RBC % 0.8, Sodium 142, Potassium 3.3, Chloride 110 H, Carbon Dioxide 20.5 L, Anion Gap 12, BUN 23 H, Creatinine 1.09, Estim Creat Clear Calc 44.51 L, Est GFR (MDRD) Non-Af 50 L, BUN/Creatinine Ratio 21.4 H, Glucose 101 H, Calcium 8.9 Charges/Coding Visit Charges Inpatient E&M: 25953 Subs Hosp L2
--- NOTE | 2024-11-12 18:05 | DS.PCM_ITS ---
Providers Date of Admission: 11/07/24 Primary Care Physician: Dr. Jean Claude Gutierrez MD Consultations 11/08/24 07:54 Consult: Workers Compensation Manager / Pulmonary Medicine Routine Consulting Provider: Intensivists/Pulmonary Med Reason for Consult: MRSA pneumonia, non resolving since 09/2024 EMERGENT Consult: No Notified: Yes Date Notified: 11/08/24 Time Notified: 07:55 Method of Notification: Text 11/08/24 09:57 Consult: Infectious Disease Routine Consulting Provider: Shola Beth Reason for Consult: MRSA pneumonia, H/o aspiration/dysphagia EMERGENT Consult: No Notified: Yes Date Notified: 11/08/24 Time Notified: 09:57 Method of Notification: Text 11/08/24 10:04 Consult: Gastroenterology Routine Consulting Provider: [facility] Reason for Consult: aspiration EMERGENT Consult: Yes Notified: Yes Date Notified: 11/08/24 Time Notified: 10:04 Method of Notification: Text Reason For Visit: PNEUMONIA Diagnosis Discharge Diagnosis (1) Pneumonia: Status: Acute Code(s): J18.9 - Pneumonia, unspecified organism Plan This 84-year-old female being admitted for pneumonia and hypoxia 1. SARS due to left lower lobe, healthcare associated pneumonia/aspiration pneumonia: Patient is being admitted in PCU. She was tachypneic, hypoxia, leukocytosis, 2.8% immature granulocytes, suggestive of left shift but no hypotension or lactic acidosis. Does not meet criteria for sepsis. Chest CT without contrast initially reviewed and shows left lower lobe infiltrate and chronic changes of COPD, official report pending. Patient started on IV vancomycin and Zosyn. Pneumonia workup including MRSA nasal screen ordered. Triple PCR for SARS-CoV-2, flu and RSV are negative Patient was last admitted in September for community-acquired pneumonia. 11/08: MRSA nasal screen all came positive. Patient on vancomycin since admission. Children[facility] Nursery Assistant consulted and reviewed. Left lower lobe pneumonia most likely due to aspiration pneumonia. Patient also had esophageal retention and vomiting during modified barium swallow. Made n.p.o. GI consulted. 11/09: ID consult requested to plan of discharge antibiotic whether IV vancomycin or linezolid 11/10: Urine culture shows no growth. Urinary antigens negative. Blood culture negative for more than 48 11/12: ID follow-up on 11/11. Narrow down antibiotic to doxycycline and Augmentin for 3 more days. Dysphagia: EGD today, 11/09/2024. Recommended to continue medication. Advance diet as recommended by speech therapist. Impressions : - Abnormal esophageal motility, consistent with achalasia. Biopsied. Dilated. - Chronic gastritis. - No gross lesions in the duodenal bulb. 11/10: Esophageal motility disorder but unclear the classification as she will need motility study as an outpatient. Discussed with Dr. Barth. Changed Imdur to Isordil 20 mg 3 times daily. Also started on baclofen 5 mg 3 times daily. Discussed with the speech therapist. 11/11: Patient had repeat modified barium swallow but was not good with poor esophageal clearance of 1 bite. Still recommends full liquid thin consistency only. Okay for medications crushed in applesauce. Baclofen increased to 10 mg 3 times daily 11/12: Reglan ordered for first prokinetic effect. 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 PEG tube also has risk of aspiration. Hospice was consulted. Later on patient accepted by inpatient hospice unit and she was discharged [place] on CKD 3B: Patient's baseline creatinine is elevated about 1.26-1.5. Patient admitted with 2.67, currently improving 1.67. Serum potassium low 2.8. Potassium is getting replaced. Hypernatremia and hyperchloremia. D5W ordered. Patient n.p.o. but it diet as per speech therapist after EGD. Monitor intake and output. 11/12: K3.3 potassium low normal. Creatinine on baseline 1.09. Hypernatremia and hyperchloremia due to insufficient fluid intake: Patient's lungs sound wet and wastarted on IV fluid D5 half NS yesterday. Lasix 40 mg IV given. Chest x-ray done after Lasix which shows persistent residual pleural- parenchymal changes at left lung base and the mild improvement. Right lung clear. IV fluid D5 at 75 mL/h. 11/11: Sodium 140. Hypernatremia corrected. Severe hypokalemia, K2.9. IV potassium ordered. Serum magnesium and phosphorus ordered 11/12: Sodium 142. 2. Mild COPD exacerbation due to pneumonia: COPD exacerbation as evidenced by increased shortness of breath, dyspnea and cough. Patient is being managed on scheduled bronchodilator, IV Solu-Medrol, Mucinex, incentive spirometry and Pep. 11/08: COPD exacerbation got much better. IV Solu-Medrol discontinued. Risk of worsening of pneumonia on steroid therefore steroid discontinued 3. Unclear whether new onset or paroxysmal A-fib: Patient's daughter said she had A-fib in the past. Twelve-lead EKG shows A-fib at 61 beats minute. Patient not on anticoagulant but on baby aspirin. Discussed the risk, benefit and monitoring of anticoagulant patient daughter agreed. Low-dose Eliquis 2.5 mg twice daily started. 4. CAD status post CABG x 2: Patient does not have any chest pain but sometimes she had chest soreness from coughing. Baby aspirin was held as patient is started on Eliquis. 2 troponins 133, 122 decreasing trend suggestive of increased cardiac demand from pneumonia 11/08: Even after communication with the nursing staff not to do third troponin, it was ordered probably by night nurse and third troponin is the lowest 103 therefore it is futile test. Mildly irritated due to increased cardiac demand. 5. Chronic HFrEF and HFpEF: Last echo January 2023 showed EF 45%, LA severely enlarged. As patient's BP on lower side therefore will hold antihypertensive medications including Lasix. BNP elevated but chest x-ray and chest CT did not show pulmonary edema. 6. Dyslipidemia: On simvastatin continued. 7. Dementia with behavioral disturbances: 8. Hypertension: As mentioned above. Hold antihypertensive medications DVT prophylaxis, high risk: On low-dose Eliquis. Living will/advanced directive/end of life care: Patient does have living will or advanced directive. After discussion of benefits/risks procedures involved with full code, DNR CC arrest and DNR CC, the patient and her daughter POA present in the ED and agreed for DNR CC arrest with no intubation. Patient doesn't want artificial life support including intubation, tube feed, ventilator and/chest compression, central venous catheter, vasopressor and DC shock if needed Microbiology Past 72 Hours 11/07/24 10:51 Blood Culture (Wb) - Arm Left Blood Culture - Final No growth in 5 days. 11/07/24 10:51 Blood Culture (Wb) - Arm Left Blood Culture - Final No growth in 5 days. 11/07/24 15:25 Urine Catheter - Catheter Urine Culture - Final Culture exhibits no growth. 11/07/24 15:25 Urine Catheter - Catheter Legionella Antigen - Final 11/07/24 15:25 Urine Catheter - Catheter Streptococcus pneumoniae Antigen (M - Final Laboratory Results 11/12/24 04:12: WBC 9.3, RBC 2.45 L, Hgb 7.5 L, Hct 24.7 L, MCV 100.8 H, MCH 30.6, MCHC 30.4 L, RDW Std Deviation 55.8 H, RDW Coeff of Alexandra 17.2 H, Plt Count 207, MPV 11.5, Immature Gran % (Auto) 4.400 H, Neut % (Auto) 76.8 H, Lymph % (Auto) 10.1 L, Winston % (Auto) 5.7, Eos % (Auto) 2.5, Baso % (Auto) 0.5, Absolute Neuts (auto) 7.1, Absolute Lymphs (auto) 0.94, Nucleated RBC % 0.8, Sodium 142, Potassium 3.3, Chloride 110 H, Carbon Dioxide 20.5 L, Anion Gap 12, BUN 23 H, Creatinine 1.09, Estim Creat Clear Calc 44.51 L, Est GFR (MDRD) Non-Af 50 L, B UN/Creatinine Ratio 21.4 H, Glucose 101 H, Calcium 8.9 Medications at Discharge Home Medications simvastatin 20 mg tablet 20 mg PO QHS CHOLESTEROL 10/10/15 latanoprost 0.005 % eye drops 1 drp ophthalmic (eye) QPM GLAUCOMA 01/12/19 nitroglycerin 0.4 mg sublingual tablet 0.4 mg sublingual Q5-15M PRN CHEST PAIN 01/12/19 clobetasol 0.05 % topical cream 1 applic topical BID PSORIASES 06/26/21 brimonidine 0.1 % eye drops 2 drp ophthalmic (eye) DAILY EYE IRRITATION 07/11/21 calcipotriene 0.005 % topical cream 1 applic topical DAILY PRN PSORIASES 01/22/23 montelukast 10 mg tablet 10 mg PO DAILY ALLERGIES 01/22/23 netarsudil 0.02 % eye drops (Rhopressa) 1 drp EACH EYE DAILY GLAUCOMA 01/22/23 acetaminophen 500 mg tablet 1,000 mg (2 x 500 mg) PO Q6H PRN PRN Pain Score 1-10 #0 tabs 02/06/23 amlodipine 5 mg tablet 5 mg PO DAILY 30 days #30 tabs 02/06/23 budesonide 160 mcg-glycopyr 9 mcg-formot 4.8 mcg/actuation HFA inhaler (Breztri Aerosphere) 2 inh inhalation DAILY 07/04/23 gabapentin 100 mg capsule 200 mg PO QHS 07/04/23 trazodone 50 mg tablet 75 mg PO QHS 07/04/23 benzonatate 100 mg capsule 100 mg PO TID PRN cough 10/13/23 furosemide 40 mg tablet 40 mg PO DAILY 10/13/23 isosorbide mononitrate 60 mg tablet,extended release 24 hr See Rx Instructions .Route .COMPLEX #60 TABLETS 10/28/23 cholecalciferol (vitamin D3) 25 mcg (1,000 unit) capsule 25 mcg PO QDAY 06/21/24 carbidopa 25 mg-levodopa 100 mg tablet 2 tab PO TID 10/16/24 sertraline 100 mg tablet 100 mg PO DAILY 10/16/24 albuterol sulfate 90 mcg/actuation aerosol inhaler (Ventolin HFA) 2 puff inhalation Q8H PRN shortness of breath or wheezing 10/24/24 aspirin 81 mg tablet,delayed release (Adult Aspirin Regimen) 81 mg PO QDAY #90 tabs 10/24/24 bisacodyl 10 mg rectal suppository 10 mg [place] QDAY PRN constipation 10/24/24 cyanocobalamin (vitamin B-12) 100 mcg tablet 100 mcg PO QDAY 10/24/24 diphenhydramine HCl 25 mg tablet 12.5 mg PO DAILY PRN allergy symptoms 10/24/24 docusate sodium 100 mg capsule (Colace) 100 mg PO BID CONSTIPATION 10/24/24 ferrous sulfate 325 mg (65 mg iron) tablet 325 mg PO QDAY 10/24/24 guaifenesin 600 mg tablet, extended release 12 hr 600 mg PO BID 10/24/24 hydrocodone 7.5 mg-acetaminophen 325 mg tablet 1 tab PO .COMPLEX PRN pain 10/24/24 lisinopril 20 mg tablet 20 mg PO BID HTN 10/24/24 loperamide 2 mg tablet 2 mg PO ONCE PRN loose stool 10/24/24 magnesium hydroxide 400 mg/5 mL oral suspension (Milk of Magnesia) 30 ml PO QDAY PRN constipation 10/24/24 polyethylene glycol 3350 17 gram/dose oral powder 17 g PO QDAY 10/24/24 propylene glycol 0.6 % eye drops (Systane Complete) 1 drp ophthalmic (eye) BID- QID PRN dry eye(s) 10/24/24 artificial tears(lykbgti-tgerrclo-xhzplcg) 0.1 %-0.3 %-0.2 % eye drops 1 drp EACH EYE PRN 11/07/24 ceftriaxone 1 gram solution for injection 1 g IM DAILY 11/07/24 ondansetron HCl 4 mg tablet 4 mg PO Q6H 11/07/24 Physical Exam Narrative Please see the progress note for further detail exam findings Weight / BMI Weight Weight: 201 lb 15.095 oz Body Mass Index (BMI) 34.7 ABG / Lab / Microbiology Data 11/12/24 04:12 11/12/24 04:12 Microbiology: Microbiology 11/07/24 10:51 Blood Culture (Wb) - Arm Left Blood Culture - Final No growth in 5 days. 11/07/24 10:51 Blood Culture (Wb) - Arm Left Blood Culture - Final No growth in 5 days. 11/07/24 15:25 Urine Catheter - Catheter Urine Culture - Final Culture exhibits no growth. 11/07/24 15:25 Urine Catheter - Catheter Legionella Antigen - Final 11/07/24 15:25 Urine Catheter - Catheter Streptococcus pneumoniae Antigen (M - Final 11/07/24 16:10 Nasal Secretion MRSA (PCR) - Final Meth. resistant Staph. aureus 11/07/24 09:35 Mucosa - Nose SARS-CoV-2, Influenza & RSV (PCR) - Final D/C Instructions DC O2, CPAP, BIPAP Needs Home O2 Discharge instructions: No Meaningful Use Info Meaningful Use Meaningful Use Diagnoses (Choose all that apply): None applicable Ischemic Stroke Statin Dosing Therapy Reference: STATIN DOSE THERAPY REFERENCE: * Patients > 75 years receive moderate or high dose statin therapy. * Patients 75 years or YOUNGER should receive HIGH intensity statin dose unless contraindicated. You will be required to document reason for non-treatment if statin daily dose does not meet guidelines. HIGH DOSE STATIN THERAPY DAILY Atorvastatin > than or = to 40 mg Rosuvastatin > than or = to 20 mg Amlodipine + Atorvastatin > than or = to 2.5/40 mg Ezetimibe + Simvastatin 10/80 mg Simvastatin 80mg Discharge Plan Admission Admit Date/Time: 11/07/24 12:17 Attending Provider: Apollo Dinh Primary Care Provider: Jean Claude Gutierrez Consulting Providers: Jean Claude Ritchie; Adam Hawkins; Edd Perez; Yasir Russ; Nico Gil; Shalom Brand; Darren Ngo; Ros López; Contreras Lang; Mendoza Munoz; Jose Rafael Muir; Ivelisse Ponce; Derik Gill; Tressa Alcantara; Malick Choi; Nacho Call; Ángel Gibson; Kamron Cevallos; Alec Gallego; Colin Fraga; Cno Andino; Grayson Lemus; Feliberto Lundberg; Shola Beth Instructions Additional Instructions / Restrictions: ID recommended antibiotic Augmentin/doxycycline for 3 more days, end date 11/14/2024. Augmentin 875 mg p.o. twice daily and doxycycline 100 mg twice daily. Patient had to be safe to swallow. Discharge Orders/Prescriptions Prescriptions: No Action latanoprost 0.005 % drops 1 drp OPHTHALMIC QPM nitroglycerin 0.4 mg tablet, sublingual 0.4 mg SUBLINGUAL Q5-15M PRN (Reason: CHEST PAIN ) docusate sodium [Colace] 100 mg capsule 100 mg PO BID brimonidine 0.1 % drops 2 drp ophthalmic (eye) DAILY clobetasol 0.05 % cream 1 applic topical BID cholecalciferol (vitamin D3) 25 mcg (1,000 unit) capsule 25 mcg PO QDAY cyanocobalamin (vitamin B-12) 100 mcg tablet 100 mcg PO QDAY diphenhydramine HCl 25 mg tablet 12.5 mg PO DAILY PRN (Reason: allergy symptoms) lisinopril 20 mg tablet 20 mg PO BID Patient Comments: [NO ORIGINAL SIG] loperamide 2 mg tablet 2 mg PO ONCE PRN (Reason: loose stool) magnesium hydroxide [Milk of Magnesia] 400 mg/5 mL suspension 30 ml PO QDAY PRN (Reason: constipation) bisacodyl 10 mg suppository 10 mg [place] QDAY PRN (Reason: constipation) ferrous sulfate 325 mg (65 mg iron) tablet 325 mg PO QDAY polyethylene glycol 3350 17 gram/dose powder 17 g PO QDAY albuterol sulfate [Ventolin HFA] 90 mcg/actuation HFA aerosol inhaler 2 puff inhalation Q8H PRN (Reason: shortness of breath or wheezing) Systane Complete 0.6 % drops 1 drp ophthalmic (eye) BID-QID PRN (Reason: dry eye(s)) guaifenesin 600 mg tablet extended release 12hr 600 mg PO BID aspirin [Adult Aspirin Regimen] 81 mg tablet,delayed release (DR/EC) 81 mg PO QDAY Qty: 90 3RF simvastatin 20 MG tablet 20 mg PO QHS calcipotriene 0.005 % Cream 1 applic TOPICAL DAILY PRN (Reason: PSORIASES) Rx Instructions: rub in gently and completely montelukast 10 mg tablet 10 mg PO DAILY Rhopressa 0.02 % Drops 1 drp EACH EYE DAILY acetaminophen 500 mg Tablet 1,000 mg PO Q6H PRN PRN (Reason: Pain Score 1-10) Qty: 0 0RF amlodipine 5 mg Tablet 5 mg PO DAILY 30 Days Qty: 30 0RF trazodone 50 mg tablet 75 mg PO QHS Breztri Aerosphere 160-9-4.8 mcg/actuation HFA aerosol inhaler 2 inh INHALATION DAILY gabapentin 100 mg Capsule 200 mg PO QHS hydrocodone-acetaminophen 7.5-325 mg tablet 1 tab PO .COMPLEX PRN (Reason: pain) Rx Instructions: 1 TAB orally daily and qhs PRN; artificial tear(obepw-myr-hzr) 0.1-0.3-0.2 % drops 1 drp EACH EYE PRN ondansetron HCl 4 mg tablet 4 mg PO Q6H ceftriaxone 1 gram recon soln 1 g IM DAILY benzonatate 100 mg capsule 100 mg PO TID PRN (Reason: cough) furosemide 40 mg tablet 40 mg PO DAILY carbidopa-levodopa 25-100 mg tablet 2 tab PO TID Patient Comments: [NO ORIGINAL SIG] sertraline 100 mg tablet 100 mg PO DAILY isosorbide mononitrate 60 mg tablet extended release 24 hr See Rx Instructions .ROUTE .COMPLEX Qty: 60 11RF Dose Instruction: TAKE 1 TABLET BY MOUTH TWICE A DAY Rx Instructions: TAKE 1 TABLET BY MOUTH TWICE A DAY Referrals / Follow Up: Jean Claude Gutierrez MD [Primary Care Provider] - Disposition Disposition (needs filled in before D/C Order can be placed): Hospice in Medical Facility Charges/Coding Visit Charges Inpatient E&M: 20438 Disch Hosp >30min
--- NOTE | 2024-11-12 18:53 | NURSING ---
Report called to Lyndsay at hospice
[2024-11-12] MEDS: Atorvastatin Calcium 10 MG Tablet PO (21:25)
[2024-11-12] MEDS: Latanoprost 0.005% 1 Bottle 1 DRP OPHTHALMIC (21:26)
[2024-11-12] MEDS: traZODone 50 MG Tablet PO (21:26)
[2024-11-12] MEDS: Gabapentin 100 MG Capsule PO (21:27)
[2024-11-12] MEDS: Doxycycline monohydrate 25 MG/5 ML SUSP. 100 MG PO (21:34)
== END 2024-11-12 23:35 | disposition hospice, inpatient (51) | DRG 190 ==
LOC: ED 10:00 → PCU 12:41
PROVIDERS: Internal Medicine Critical Care Medicine; Internal Medicine Gastroenterology; Internal Medicine Pulmonary Disease; Admitting Provider Internal Medicine; Emergency Provider Emergency Medicine; PCP Family Medicine; Referring Provider Internal Medicine; Visit Provider Internal Medicine
PROC: 0DJ08ZZ Inspection of Upper Intestinal Tract, Via Natural or Artificial Opening Endoscopic (ICD-10-PCS; CPT 43235; principal; 2024-11-09 13:10)
DX: J44.0 Chronic obstructive pulmonary disease with (acute) lower respiratory infection (principal); J18.9 Pneumonia, unspecified organism; J69.0 Pneumonitis due to inhalation of food and vomit; E87.0 Hyperosmolality and hypernatremia; N17.9 Acute kidney failure, unspecified; I13.0 Hypertensive heart and chronic kidney disease with heart failure and stage 1 through stage 4 chronic kidney disease, or unspecified chronic kidney disease; F03.94 Unspecified dementia, unspecified severity, with anxiety; I50.42 Chronic combined systolic (congestive) and diastolic (congestive) heart failure; J98.11 Atelectasis; K22.0 Achalasia of cardia; Z66 Do not resuscitate; N18.32 Chronic kidney disease, stage 3b; J44.1 Chronic obstructive pulmonary disease with (acute) exacerbation; F34.1 Dysthymic disorder; D64.9 Anemia, unspecified; I34.0 Nonrheumatic mitral (valve) insufficiency; I48.0 Paroxysmal atrial fibrillation; J43.9 Emphysema, unspecified; E78.00 Pure hypercholesterolemia, unspecified; I25.10 Atherosclerotic heart disease of native coronary artery without angina pectoris; E87.8 Other disorders of electrolyte and fluid balance, not elsewhere classified; K29.50 Unspecified chronic gastritis without bleeding; E87.6 Hypokalemia; Z86.16 Personal history of COVID-19; Z79.2 Long term (current) use of antibiotics; Z11.52 Encounter for screening for COVID-19; Z87.891 Personal history of nicotine dependence; R13.10 Dysphagia, unspecified; R09.02 Hypoxemia; Z95.1 Presence of aortocoronary bypass graft; Y95 Nosocomial condition; B95.62 Methicillin resistant Staphylococcus aureus infection as the cause of diseases classified elsewhere
CPT/HCPCS: 36415; 71045; 71046; 71250; 74230; 80048; 80076; 80202; 81001; 82550; 82565; 83605; 83735; 83880; 84100; 84145; 84443; 84484; 85025; 85379; 85610; 85730; 87040; 87086; 87449; 87631; 87641; 88305; 88312; 92526; 92611; 93005; 94640; 94668; 97116; 97162; 97166; 97530; 97535; 97802; 99285; A4216; C1769; J1940; J2916